=== PATIENT | female | born 1945 | race Caucasian/White ===

== ENCOUNTER 2019-06-02 13:55 | Outpatient (CLI) | payer MEDICARE, OTHER, SELFPAY ==
[2019-06-02 14:37] LABS: Basophils % 0.5 %; Eosinophils # 0.1 10^3/uL (0.0-0.8); Eosinophils % 1.3 %; Hematocrit 45.5 % (37.0-47.0); Hemoglobin 14.7 g/dL (11.5-15.3); Lymphocytes # 0.7 10^3/uL (0.8-4.8); Lymphocytes % 11.9 %; Mean Corpuscular HGB Conc 32.3 g/dL (30.0-36.0); Mean Corpuscular Hemoglobin 30.4 pg (28.0-34.0); Mean Platelet Volume 11.2 fL (7.4-10.4); Monocytes # 0.5 10^3/uL (0.2-0.9); Neutrophils # 4.2 10^3/uL (1.8-7.7); Neutrophils % 76.9 %; Nucleated Red Blood Cells % 0 %; Platelet Count 223 10^3/cmm (130-400); Red Blood Count 4.84 10^6/uL (4.1-5.3); Red Cell Distribution Width 13.9 % (12.1-15.1); White Blood Count 5.5 10^3/uL (4.0-10.0)
[2019-06-02 14:45] LABS: INR 1.01 (0.8-1.2)
[2019-06-02 14:46] LABS: Partial Thromboplastin Time 30.7 SECONDS (23.9-36.7)
[2019-06-02 15:00] LABS: Anion Gap 18.9 (5-19); Blood Urea Nitrogen 64 mg/dL (8-23); Calcium 10.2 mg/Dl (8.8-10.2); Carbon Dioxide 22 mmol/L (22-29); Chloride 99 mmol/L (98-107); Glucose 127 mg/dL (74-106); Magnesium 2.5 mg/dL (1.7-2.3); Potassium 3.9 mmol/L (3.5-5.1); Sodium 136 mmol/L (136-145)
== END 2019-06-02 13:56 | disposition home or self-care (01) ==
LOC: LAB 14:02
PROVIDERS: Family Provider Internal Medicine; PCP Internal Medicine; Visit Provider Internal Medicine Clinical Cardiac Electrophysiology
DX: I48.3 Typical atrial flutter (principal); I49.3 Ventricular premature depolarization; I48.0 Paroxysmal atrial fibrillation
CPT/HCPCS: 36415; 80048; 83735; 85025; 85610; 85730

== ENCOUNTER 2019-07-10 09:58 | Outpatient (CLI) | payer MEDICARE, OTHER, SELFPAY ==
[2019-07-10 10:35] LABS: Basophils % 0.7 %; Eosinophils # 0.2 10^3/uL (0.0-0.8); Eosinophils % 3.4 %; Hematocrit 42.5 % (37.0-47.0); Hemoglobin 13.5 g/dL (11.5-15.3); Lymphocytes # 0.7 10^3/uL (0.8-4.8); Lymphocytes % 12.3 %; Mean Corpuscular HGB Conc 31.8 g/dL (30.0-36.0); Mean Corpuscular Hemoglobin 32.3 pg (28.0-34.0); Mean Corpuscular Volume 101.7 fL (81-99); Mean Platelet Volume 10.8 fL (7.4-10.4); Monocytes # 0.5 10^3/uL (0.2-0.9); Monocytes % 8.3 %; Neutrophils # 4.1 10^3/uL (1.8-7.7); Neutrophils % 75.1 %; Nucleated Red Blood Cells % 0 %; Platelet Count 214 10^3/cmm (130-400); Red Blood Count 4.18 10^6/uL (4.1-5.3); Red Cell Distribution Width 14.5 % (12.1-15.1); White Blood Count 5.5 10^3/uL (4.0-10.0)
[2019-07-10 10:52] LABS: Alanine Aminotransferase 12 U/L (0-33); Albumin Level 3.6 g/dL (3.5-5.2); Alkaline Phosphatase 91 IU/L (35-105); Anion Gap 17.8 (5-19); Aspartate Amino Transferase 23 U/L (0-32); Blood Urea Nitrogen 58 mg/dL (8-23); Calcium 10.1 mg/dL (8.5-10.5); Carbon Dioxide 24 mmol/L (22-29); Chloride 103 mmol/L (98-107); Glucose 100 mg/dL (65-115); Potassium 3.8 mmol/L (3.5-5.1); Sodium 141 mmol/L (136-145); Total Bilirubin 0.6 mg/dL (0.15-1.2); Total Protein 7.6 g/dL (6.6-8.7)
--- NOTE | 2019-07-10 14:25 | ONC FU_ITS ---
Dr. 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 She had a anaphylactic reaction to tPA requiring intubation in October of 2013, but eventually recovered from stroke with minimal neurological deficits. She has a history of nonischemic cardiomyopathy and prior alcoholism. She underwent a CT of the chest on 05/04/14, done for a followup of pulmonary nodule which was negative, but it incidentally noted to have a right breast mass. Her mammogram on 05/08/2014 showed a 2 cm mass at 12:00 position extending posteriorly to the chest wall. On 05/16/2014 she underwent an excisional biopsy of the right breast and right sentinel lymph node biopsy. Intraoperatively, the resection was carried out all the way up the pectoralis muscle. Her surgical pathology showed a 2.1 cm low-grade infiltrating ductal carcinoma, posterior margins involved with the DCIS. There was lymphovascular invasion present. One sentinel lymph node was positive for metastatic disease. Prognostic markers showed ER 99%, CO 14%, HER-2/cindy 1+ by IHC and FISH not amplified at 1.2. Thus, pT2 pN1a M0, pathologic stage IIB. She was first seen on 06/08/2014. She declined adjuvant chemotherapy. She completed adjuvant radiation treatment to the right breast on 09/17/14. Adjuvant hormonal therapy with Arimidex began on 07/04/14. Baseline DEXA scan normal. Vitamin D deficiency found, she began on high-dose replacement. had her bone scan done on August 2016 and it was normal tolerating Arimidex very well lAs per patient, she has history of iron deficiency anemia, initially she was diagnosed in 2002 in [place], at that time she underwent EGD colonoscopy and bone marrow evaluation and bone marrow showed low iron and she was started on ferrous sulfate so, for the last 15 years she she has been taken it diligently. Patient was on anticoagulation for cardiac reasons and recently in April 2018, underwent cardiac procedure and at that time anticoagulation was discontinued and restarted on Plavix and aspirin. As per patient her hemoglobin was 12.1 on 05/16/2018 much repeat CBC on 06/14/2018 showed hemoglobin 7.3 g. She was given 3 units of packed RBCs with that her hemoglobin improved to 10 g and repeat CBC on 07/14/2018 showed white blood count 8 hemoglobin 9.3 crit 28.9 MCV 98 platelets 275,000 creatinine 1.26. Now on daily ferrous sulfate , Etiology of significant drop in hemoglobin was not clear as there was no evidence of gross bleeding. As per patient she had colonoscopy done last year by Dr. Puente and it was normal EGD done on 08/05/2018 showed gastritis with erythematous, ulcerative, erosion. There was no mucosal bleeding and rest of the exam was normal. Her iron studies done by Dr. Puente her PMD on 08/04/2018 showed ferritin 17, TIBC 374, B12 955, TSH 3.45. parenteral iron was given in Dr. Puente's office. She was advised to restart Arimidex but took it for 4 days and then stopped taking it because of she started feeling weak went to emergency room where her hemoglobin was 8.4 and then follow-up labs in her primary care physician office was 7.3 then loss she was given 2 units of packed RBCs and on Wednesday she underwent EGD.Restarted on Arimidex, tolerating well now Since her last visit patient said in November 2018 she received 2 units of packed RBC 4 hemoglobin 7.1 g subsequently on 12/16/2018 she underwent repeat EGD by Dr. Puente which showed bleeding stomach ulcer, as per patient cauterization was done with that bleeding stopped. Her repeat CBC done on 01/12/2019 shows white blood count 6.3 hemoglobin 12.7 hematocrit 37.8 platelets 259,000 and on 02/28/2019, as per patient, CBC done in her PMDs office showed hemoglobin 13.6. Other medical issues, recently diagnosed with progressive congestive heart failure as there is a drop in her ejection fraction from 45 to 20, now cardiac workup is in progress to rule out underlying coronary artery disease. Patient developed left foot pain for which x-ray of left foot was done on 01/30/2019 which showed no acute findings but osteoporosis in the mild first metatarsophalangeal joint degenerative arthritis changes. Completed 5 years of adjuvant therapy with Arimidex on 07/10/2019 As per patient recently underwent EGD which showed gastric ulcer and Dr. Puente did cauterization since then her hemoglobin has been improving and on 07/10/2019 her hemoglobin gone up to 13.5 hematocrit 42.5 and white blood count 5.5, platelets 214,000. Patient also underwent multiple cardiac procedures including pacemaker placement, AV node ablation, Came for follow-up, denies any specific complaints, overall more energetic. No fever or chills no nausea or vomiting no new bony pains, no melena or hematochezia. Tolerating Arimidex well and now has completed 5 years of adjuvant hormone therapy. Medications: Acetaminophen 1 Tablet (of 500 mg) Oral PRN, Allopurinol 1 Tablet (of 100 mg) Oral daily, Amiodarone HCl 1 Tablet (of 200 mg) Oral daily, Anastrozole 1 (1 mg) Tablet Oral daily, B Complex Tablet Oral daily, Calcitrate Plus D 1 Tablet (of 315-200 mg - Units) Oral daily, Entresto 1 Tablet (of 25 mg) Oral b.i.d., Ferrous Sulfate 1 (325 (65 fe) mg) Tablet Oral b.i.d., Lansoprazole 1 Tablet (of 30 mg) Tablet Dispersable Oral daily, Lasix 1 (80 mg) Tablet Oral daily, Magnesium 1 (250 mg) Tablet Oral daily, Metoprolol Succinate ER 1 Tablet (of 100 mg) Tablet SR 24 HR Oral daily Allergies: Latex (bandaids), statins, and tpa. Review of Systems: Constitutional - Her energy level is fair. Appetite is good and weight is stable. No fever, chills, or night sweats. She has occassional hot flashes, ENMT - She has sinus congestion/drainage. No mouth sores. No sore throat or difficulty swallowing, Hematologic/Lymphatic - No abnormal bruising or bleeding, Respiratory - She has shortness of breath with activity. She has nonproductive cough. No pleuritic pain or hemoptysis, Cardiovascular - Pt reports that she will begin cardiac rehab next week, Gastrointestinal - No nausea or vomiting. No heartburn or acid reflux. No diarrhea or constipation. No blood in the stool or black stools, Genitourinary (F) - No dysuria or hematuria. No urinary frequency. No urgency or incontinence, Musculoskeletal - She has generalized joint pain, Neurologic - No headache or dizziness. No numbness/paresthesias or other focal neurologic symptoms, Psychiatric - No anxiety or depression. She has insomnia. Vital Signs: Performed on Jul 10, 2019 11:34 Height - 66.00 in Weight - 204 lbs (LOW) BSA - 2.02 sq.m BMI - 32.93 (HIGH) Temperature - 97.8 F (LOW) Pulse - 70 /min Respiration - 18 /min BP - 102/79 mm(hg) O2 Sat - 96 % Pain - 3 Performance Status: 1 - No physically strenuous activity, but ambulatory and able to carry out light or sedentary work (e.g. office work, light house work). (ECOG) Physical Examination: Respiratory - Lungs are clear to auscultation without rhonchi or wheezing, Cardiovascular - Regular rate and rhythm of heart, Extremities - trace edema. Lab/Imaging: Most recent lab results are not available for this patient. Impression: This is a 73-year-old postmenopausal woman with stage IIB, pT4pF3kV2, ER/CO positive, HER-2 negative invasive ductal carcinoma of the right breast, with a positive posterior margin involved with DCIS. As per surgeon, the resection was carried out all the way back to the pectoralis musculature. No further breast tissue remains posterior to the mass itself. She declined adjuvant chemotherapy. She completed adjuvant radiation treatment. Adjuvant hormonal therapy with Arimidex for 5 years began on 07/04/14. Completed 5 years of Arimidex on 07/10/2019 Mammogram in May 2016 was BIRADS II Mammogram done on 06/07/2017 showed BI-RADS 2???benign Alkaline phosphatase is elevated . No bony symptoms. History of iron deficiency anemia diagnosed in 2002 with bone marrow biopsy done in [place] showed low iron stores in bone marrow. And normal colonoscopy and EGD at that time. Patient is on daily ferrous sulfate since then. History of 3 packed RBCs infusion on 06/14/2018 at that time her hemoglobin was 7.3 compared to 12.1 on 05/16/2018, etiology was not clear e.g. chronic GI blood loss from upper GI or small bowel AVMs as bilirubin was within normal limits Status post 2 units of packed RBC on 08/04/2018 followed by EGD on 08/05/2018 which showed gastritis but no active bleeding and her repeat iron studies on 08/04/2018 showed ferritin 17 TIBC 374 B12 955, TSH 3.45. s/p parenteral iron in Dr. Puente's office History of chronic anticoagulation till April 2019 when she underwent cardiac procedure and after that antipronation was discontinued and started on Plavix and aspirin. Plan: Discussed with patient regarding her labs white blood count 5.5 he'll return 13.5 crit 42.5 platelets 214,000 CMP within normal limit except creatinine 2 Clinically, patient is doing well with no signs symptom suggestive of recurrence of disease. Patient has completed 5 years of adjuvant therapy with Arimidex today. At this point we'll discontinue her hormonal therapy with Arimidex. And patient is scheduled for yearly follow-up mammogram in the morning. And her lab workup showed resolution of anemia hemoglobin is gone up to 13.5 g compared to 10.9 g. Patient said she, recently underwent cauterization of gastric ulcer by Dr. Puente and since then her blood count has been improving. And Dr. Puente is monitoring her anemia. At this point no new recommendation from hematology/oncology point of view rather observation. Patient will be following her primary care physician on a regular basis with her labs and mammogram and wishes to see us on as-needed basis. Signed By: Ace Dukes M.D. <<Signature on File>>
== END 2019-07-10 09:59 | disposition home or self-care (01) ==
LOC: ONCMED 10:01
PROVIDERS: Family Provider Internal Medicine; PCP Internal Medicine; Visit Provider Internal Medicine Hematology & Oncology
DX: C50.411 Malignant neoplasm of upper-outer quadrant of right female breast (principal); I48.91 Unspecified atrial fibrillation; N18.9 Chronic kidney disease, unspecified; I42.8 Other cardiomyopathies; C77.3 Secondary and unspecified malignant neoplasm of axilla and upper limb lymph nodes; Z17.0 Estrogen receptor positive status [ER+]; E55.9 Vitamin D deficiency, unspecified; D50.9 Iron deficiency anemia, unspecified; I50.9 Heart failure, unspecified; M81.0 Age-related osteoporosis without current pathological fracture; Z78.0 Asymptomatic menopausal state; R74.8 Abnormal levels of other serum enzymes; Z79.811 Long term (current) use of aromatase inhibitors; Z79.02 Long term (current) use of antithrombotics/antiplatelets; Z79.82 Long term (current) use of aspirin; Z87.891 Personal history of nicotine dependence; Z95.0 Presence of cardiac pacemaker; Z86.73 Personal history of transient ischemic attack (TIA), and cerebral infarction without residual deficits; Z92.3 Personal history of irradiation
CPT/HCPCS: 80053; 85025; 99214

== ENCOUNTER 2019-07-11 10:58 | Outpatient (CLI) | payer MEDICARE, OTHER, SELFPAY ==
--- NOTE | 2019-07-11 11:20 | MM_ITS ---
WS: [id number] BILATERAL SCREENING DIGITAL MAMMOGRAM WITH CAD HISTORY: HX OF BREAST CA COMPARISON: 06/06/2018 and 06/04/2017 Bilateral CC and MLO views submitted. Computer aided detection analyzed. Breast composition: There are scattered areas of fibroglandular density. No suspicious masses, microc alcifications or architectural distortion. Postsurgical lumpectomy and postradiation changes in the u pper outer quadrant of the RIGHT breast are stable. There is mild volume loss in the RIGHT breast. Bi lateral calcifications are stable. MM/[place] [id number] IMPRESSION: BI-RADS: 2-Benign FOLLOW UP: 1 Year Follow-up
== END 2019-07-11 10:59 | disposition home or self-care (01) ==
LOC: RADSHAW 11:01
PROVIDERS: Family Provider Internal Medicine; PCP Internal Medicine; Visit Provider Internal Medicine Hematology & Oncology
DX: Z85.3 Personal history of malignant neoplasm of breast (principal)
CPT/HCPCS: 77066

== ENCOUNTER 2019-07-25 14:05 | Outpatient (CLI) | payer MEDICARE, OTHER, SELFPAY ==
[2019-07-25 15:19] LABS: Basophils % 0.4 %; Eosinophils # 0.2 10^3/uL (0.0-0.8); Eosinophils % 3.2 %; Hematocrit 38.6 % (37.0-47.0); Hemoglobin 12.3 g/dL (11.5-15.3); Lymphocytes # 0.6 10^3/uL (0.8-4.8); Lymphocytes % 11.8 %; Mean Corpuscular HGB Conc 31.9 g/dL (30.0-36.0); Mean Corpuscular Hemoglobin 30.8 pg (28.0-34.0); Mean Corpuscular Volume 96.5 fL (81-99); Monocytes # 0.4 10^3/uL (0.2-0.9); Monocytes % 7.9 %; Neutrophils # 3.8 10^3/uL (1.8-7.7); Neutrophils % 76.5 %; Nucleated Red Blood Cells % 0 %; Platelet Count 252 10^3/cmm (130-400); Red Cell Distribution Width 14.4 % (12.1-15.1); White Blood Count 4.9 10^3/uL (4.0-10.0)
[2019-07-25 15:42] LABS: Anion Gap 18.6 (5-19); Blood Urea Nitrogen 30 mg/dL (8-23); Calcium 9.6 mg/dL (8.5-10.5); Carbon Dioxide 24 mmol/L (22-29); Chloride 98 mmol/L (98-107); Glucose 109 mg/dL (65-115); Phosphorus 4.8 mg/dL (2.5-4.5); Potassium 3.6 mmol/L (3.5-5.1); Sodium 137 mmol/L (136-145)
[2019-07-25 15:45] LABS: Creatinine Urine, Random 25 mg/dL (28-217)
[2019-07-25 15:46] LABS: Microalbum Creatinine Ratio Ur 40 mg/dL (0-20); Microalbumin Random Urine 1 ug/dL (0-20)
[2019-07-25 15:47] LABS: Calcium 9.5 mg/dL (8.5-10.5)
[2019-07-25 16:00] LABS: Parathyroid Hormone 144.6 pg/mL (15-65)
[2019-07-25 16:19] LABS: 25 Hydroxy Vitamin D 30 ng/mL (30-100)
== END 2019-07-25 14:06 | disposition home or self-care (01) ==
LOC: LAB 14:09
PROVIDERS: Family Provider Internal Medicine; PCP Internal Medicine; Visit Provider Nurse Practitioner Family
DX: N18.3 Chronic kidney disease, stage 3 (moderate) (principal)
CPT/HCPCS: 80069; 82044; 82306; 82310; 83970; 85025

== ENCOUNTER 2019-07-27 12:28 | Outpatient (RCR) | payer MEDICARE, OTHER, SELFPAY | END 2019-08-22 23:59 | disposition home or self-care (01) | LOC: CR 12:28 | PROVIDERS: Family Provider Internal Medicine; PCP Internal Medicine; Referring Provider Internal Medicine; Visit Provider Internal Medicine | DX: I48.21 Permanent atrial fibrillation (principal); I25.810 Atherosclerosis of coronary artery bypass graft(s) without angina pectoris; I50.22 Chronic systolic (congestive) heart failure; I10 Essential (primary) hypertension | CPT/HCPCS: 93798 ==

== ENCOUNTER 2019-07-31 11:42 | Outpatient (CLI) | payer MEDICARE, OTHER, SELFPAY ==
--- NOTE | 2019-07-31 12:34 | XR_ITS ---
WS: [id number] PROCEDURE: XR chest 2V* [id number] CLINICAL INFORMATION: PAF, [employer] CURRENT DRUG THERAPY COMPARISON: August 01, 2018 FINDINGS: Heart: Cardiomegaly. Cardiac pacer. Prominent left ventricle. Aortic calcification. Lungs: Chronic emphysematous changes. No acute pulmonary infiltrates. Bones: Mild thoracic kyphosis. XR/XR chest 2V* [id number] IMPRESSION: 1. Cardiomegaly with prominent left ventricle. 2. Cardiac pacer. 3. Chronic emphysematous changes. No acute pulmonary infiltrates.
== END 2019-07-31 11:43 | disposition home or self-care (01) ==
PROVIDERS: Family Provider Internal Medicine; PCP Internal Medicine; Visit Provider Internal Medicine Cardiovascular Disease
DX: I48.0 Paroxysmal atrial fibrillation (principal); I51.7 Cardiomegaly; J43.9 Emphysema, unspecified; Z79.899 Other long term (current) drug therapy; Z95.0 Presence of cardiac pacemaker
CPT/HCPCS: 71046

== ENCOUNTER 2019-08-17 13:08 | Outpatient (CLI) | payer MEDICARE, OTHER, SELFPAY ==
--- NOTE | 2019-08-17 13:15 | USCV_ITS ---
Teena Timmons Age: 73 Gender: F : 1945 Exam Date: 08/17/2019 13:32 Ordering Phys: Cindy Limon Technologist: Billie Evans Exam Location: [facility] [place] Indication: CHRONIC SYSTOLIC CHF/ PAROXYSMAL AFIB BP: / HR: 77 Rhythm: Atrial fibrillation Technical Quality: Adequate MEASUREMENTS (Male / Female) Normal Values 2D ECHO LV Diastolic Diameter PLAX 5.2 cm 4.2 - 5.9 / 3.9 - 5.3 cm LV Systolic Diameter PLAX 4.8 cm LV Chamber Size 4.0 cm IVS Diastolic Thickness 1.3 cm 0.6 - 1.0 / 0.6 - 0.9 cm IVS Systolic Thickness 2.0 cm LVPW Diastolic Thickness 1.8 cm 0.6 - 1.0 / 0.6 - 0.9 cm LVPW Systolic Thickness 2.3 cm RV Chamber Size 4.0 cm LVOT Diameter 2.0 cm LV Ejection Fraction 2D Teich 19.4 % LV Ejection Fraction MOD BP 36.4 % >= 55 % LA Diameter 5.4 cm LA Width 5.0 cm LA Height 8.0 cm RA Width 5.0 cm RA Height 5.8 cm Aorta at Sinotubular Diameter 2.8 cm M-MODE LV Diastolic Diameter MM 5.1 cm 4.2 - 5.9 / 3.9 - 5.3 cm LV Systolic Diameter MM 3.6 cm LV Ejection Fraction MM Teich 54.9 % IVS Diastolic Thickness MM 1.5 cm 0.6 - 1.0 / 0.6 - 0.9 cm IVS Systolic Thickness MM 2.3 cm LVPW Diastolic Thickness MM 1.2 cm 0.6 - 1.0 / 0.6 - 0.9 cm LVPW Systolic Thickness MM 1.9 cm RV Diastolic Diameter MM 2.7 cm Aortic Annulus Diameter 3.1 cm LA Ao Ratio MM 1.8 MV E Point Septal Separation 0.8 cm DOPPLER AV Peak Velocity 127.0 cm/s LVOT Peak Velocity 57.0 cm/s AV Area Cont Eq vti 1.5 cm squared AV Area Cont Eq pk 1.5 cm squared MV Area PHT 4.3 cm squared MV E' Velocity 12.0 cm/s Mitral E to MV E' Ratio 8.2 Mitral E to LV E' Lateral Ratio 7.7 Mitral E to LV E' Septal Ratio 9.0 TR Peak Velocity 248.8 cm/s TR Peak Gradient 24.8 mmHg TR Mean Velocity 190.7 cm/s TR Mean Gradient 15.4 mmHg TR Velocity Time Integral 103.3 cm TV Peak E Velocity 60.0 cm/s Right Atrial Pressure 3.0 mmHg Pulmonary Artery Systolic Pressu 27.8 mmHg PV Peak Velocity 40.0 cm/s RV Acceleration Time 0.1 s RV Ejection Time 0.4 s RV AcT/ET 0.3 FINDINGS Left Ventricle Moderately increased left ventricular cavity size. Moderately decreased left ventricular systolic function. Left ventricular ejection fraction is estimated at 40 %. Global left ventricular hypokinesis. In the presence of atrial fibrillation diastolic function cannot be assessed accurately Right Ventricle Normal right ventricular size. Catheter/pacemaker wire visualized in the right ventricle. Right Atrium Moderately increased right atrial size. Catheter/pacemaker wire in the right atrial cavity. Left Atrium Sverely increased left atrial size. Mitral Valve Moderately thickened mitral valve. No mitral valve stenosis. Severe mitral valve regurgitation. Aortic Valve Moderate aortic valve calcification. Mild aortic valve stenosis, mean gradient 2.9 mmHg, FRANCESCA 1.5 cm squared.no aortic valve regurgitation. Tricuspid Valve Moderate tricuspid valve regurgitation. Pulmonic Valve Structurally normal pulmonic valve without significant stenosis. There is no pulmonic regurgitation. Pericardium Normal pericardium without effusion. Aorta Normal ascending aorta dimension. CONCLUSIONS 1-Moderately increased left ventricular cavity size. Moderately decreased left ventricular systolic function. Left ventricular ejection fraction is estimated at 40 %. Global left ventricular hypokinesis. In the presence of atrial fibrillation diastolic function cannot be assessed accurately . 2-Normal right ventricular size. Catheter/pacemaker wire visualized in the right ventricle. 3-Moderately increased right atrial size. Catheter/pacemaker wire in the right atrial cavity. Severely increase left atrial size. 4-Moderate aortic valve calcification. Mild aortic valve stenosis, mean gradient 2.9 mmHg, FRANCESCA 1.5 cm squared.no aortic valve regurgitatio. 5-Moderately thickened mitral valve. No mitral valve stenosis. Severe mitral valve regurgitation. 6-Moderate tricuspid valve regurgitation. 7-There is no pericardial effusion. 8-No significant change since the prior echocardiogram study of 11/02/2016. Estrella Saucedo MD (Electronically Signed) Final Date: 17 August 2019 20:45 S
[2019-08-17 15:09] LABS: Anion Gap 17.1 (5-19); Blood Urea Nitrogen 42 mg/dL (8-23); Calcium 10.1 mg/dL (8.5-10.5); Carbon Dioxide 28 mmol/L (22-29); Chloride 103 mmol/L (98-107); Glucose 109 mg/dL (65-115); NT Pro B Type Natriuretic Pept 7939 pg/mL (0-450); Osmolality Calculated 296 mOsm/kg (285-295); Potassium 4.1 mmol/L (3.5-5.1); Sodium 144 mmol/L (136-145)
== END 2019-08-17 13:09 | disposition home or self-care (01) ==
PROVIDERS: Family Provider Internal Medicine; PCP Internal Medicine; Visit Provider Nurse Practitioner Adult Health
DX: I50.22 Chronic systolic (congestive) heart failure (principal); I49.3 Ventricular premature depolarization; I48.0 Paroxysmal atrial fibrillation; I08.3 Combined rheumatic disorders of mitral, aortic and tricuspid valves; I10 Essential (primary) hypertension; Z95.0 Presence of cardiac pacemaker
CPT/HCPCS: 36415; 80048; 83880; 93306

== ENCOUNTER 2019-08-18 15:18 | Outpatient (CLI) | payer MEDICARE, OTHER, SELFPAY ==
--- NOTE | 2019-08-18 15:26 | USR_ITS ---
PROCEDURE INFORMATION: Exam: US Bilateral Noninvasive Physiologic Study of the Lower Extremity Arteries, Limited Exam date and time: 08/18/2019 3:27 PM Age: 73 years old Clinical indication: Pain; Leg, lower; Bilateral; Additional info: Bilateral leg pain TECHNIQUE: Imaging protocol: Bilateral Limited bilateral noninvasive physiologic studies of lower extremity arteries. Images were documented and archived. Exam is limited. COMPARISON: No relevant prior studies available. FINDINGS: Abnormal waveforms within the thigh bilaterally as well as within the calf bilaterally. Right Ankle-Brachial Index: 0.64 Left Ankle-Brachial Index: 1.05 US/CV segpressure [facility] [id number] IMPRESSION: Severe atheromatous disease on the right. Normal ankle brachial index on the left which is likely falsely elevated given the severely abnormal waveforms.
== END 2019-08-18 15:19 | disposition home or self-care (01) ==
LOC: US 15:19
PROVIDERS: Family Provider Internal Medicine; PCP Internal Medicine; Visit Provider Internal Medicine Clinical Cardiac Electrophysiology
DX: M79.605 Pain in left leg (principal); M79.604 Pain in right leg; I70.201 Unspecified atherosclerosis of native arteries of extremities, right leg
CPT/HCPCS: 93923

== ENCOUNTER 2019-10-19 20:16 | Observation (INO) | payer MEDICARE, OTHER, SELFPAY ==
[2019-10-18 09:59] VITALS: BMI 33.4
--- NOTE | 2019-10-19 07:30 | XACV_ITS ---
Wt: 94 kg BSA: 2.13 m2 Gender: Female : 1945 Exam Type: Invasive Peripheral Vascular Procedure(s): Procedure Description: Peripheral Cath Diagnostic Procedure Procedure Description: Abdominal aortic angiography Procedure Description: Lower extremities' angiography Procedure Description: Peripheral vascular Intervention Procedure Description: PV Balloon Exam Priority: Routine Lower Extremity Diagnostic Findings Patient with claudication below the knee on the right and less so on the left. Noninvasive studies are abnormal suggesting disease at or below the knee. Patient is [place] grade II, category 4; Cait stage III. Angiography of the right leg reveals normal common iliac, external iliac and internal iliac. The common femoral is normal. The superficial femoral artery is normal. The popliteal is occluded at the level of the joint with essentially no flow below the knee. On the left the common iliac, external iliac, internal iliac, common femoral, profunda femoris and superficial femoral arteries are all normal. The popliteal is normal. There is little flow below the level of the popliteal. 1 can see the beginnings of the trifurcation vessels but there is very little flow here. Lower Extremity Interventional Findings A hydrophilic wire was placed down the superficial femoral artery into the area of occlusion at the popliteal. The wire was advanced using a seeker catheter. Eventually the seeker catheter was placed down the posterior tibial artery to the ankle. The area of the tibial peroneal trunk and the popliteal were angioplastied multiple times with plain old balloon followed by drug-eluting balloon. The end result was an open popliteal, open tibial peroneal trunk, open peroneal and open posterior tibial artery. The anterior tibial is also patent now but with a residual stenosis in the ostium. 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 Angioplasty of the popliteal and more distally performed with plain old balloon angioplasty and subsequently drug-eluting balloon angioplasty. The popliteal, tibial peroneal trunk, peroneal and posterior tibial arteries were all opened. I was not able to open completely the anterior tibial however there is some flow in this vessel at the end of the procedure. Recommendations Medical treatment. Access Site Site: Left Femoral artery Sheath Size: 6 Fr Hemost... Success: Unsuccessful Procedure Details Findings Procedure Consent Obtained. Pre-Procedure Time Out. Identified patient by full name and date of as verbalized by the patient/guarantor. Does the consent match the physician's order: Yes. Accurate & Complete Informed Consent: Yes. Inpatient/Outpatient History & Physical on Chart: Yes. Visualize and Verify Site with Patient/Guarantor: N/A. Relevant Radiology Images available: N/A. The risks, benefits, and alternatives of sedation and/or procedure were discussed by physician. The patient agrees to continue. Procedure started. Correct patient, site and procedure confirmed by cath team. Current diagnosis: PVD. PERRLA. Strong, equal hand business process lead bilaterally. Lungs clear x 5 lobes. Patient allergies: statins, TPA. Patient home medications: allopurinol, amiodarone,calcium, vit D3, ferrous sulfate, furosemide, magnesium, metoprolol, entresto, Vit complex & 12. Patient's family unavailable. Equipment: 6F - Femoral. Physician arrived. Physician scrubbed in. IV Site on Arrival: 20 gauge in the right anticubital. IV Fluids: 0.9% NaCl at KVO. 0 mL infused prior to recyclable materials distributor. Pre Procedural Pulses: bilateral dorsalis pedis was Doppled. Pre Procedural Pulses: bilateral posterior tibial was Doppled. Oxygen started at 2liters/min via nasal canula. bilateral groins was prepped with chloroprep then draped in the usual sterile fashion. Physician notified. Baseline sample Acquired. HR: 70 BPM. Physician scrubbed in. Time out performed with cath team. Lidocaine 1% infiltrated to the left groin. Arterial access obtained. A 5FrFr UF catheter in over wire. Abdominal aortogram performed in AP @ 10 mL/sec for a total of 30 mL. inserting the glidewire. wire seated in the right SFA. UF catheter removed and the RIM inserted over the glidewire. glide wire out right leg runoff performed 10ml for a total of 10ml. inserting glidwire. wire seated in the right SFA. RIM removed. exchanging the short 6Fr sheath for a long 6Fr flexor sheath over the glide wire. wire out and a 10ml for a total of 20ml right leg run performed. glidewire inserted and a Seeker inserted over the wire to the right politeal area. glidewire out and hand injection performed right lower leg. Side port of sheath attached to Normal Saline flush at KVO to maintain patency. glidewire inserted and Seeker removed. inserting balloon to right popliteal. Inflation number : 1 A AB ARMADA 35 OTW [id number] was prepped and advanced across the right popliteal , then inflated to 8 LAVONNE for 2:00 seconds. Inflation number: 2 The AB ARMADA 35 OTW [id number] was reinflated across the right popliteal, to 10 LAVONNE for 2:00 seconds. balloon back and checking results. hand injection performed. balloon out and Seeker inserted over glide wire to the right lower leg. Seeker removed. Inflation number: 3 The AB ARMADA 35 OTW [id number] was reinflated across the Undefined1, to 10 LAVONNE for 1:00 seconds. balloon out and hand injection performed. Inflation number : 4 A BARD 5FR Lutinox [id number] drug coated balloon was prepped and advanced across the right popliteal, then inflated to 6 LAVONNE for 1:01 seconds. balloon out checking results. balloon inserted. Inflation number: 5 The BARD 5FR Lutinox [id number] drug coated balloon was reinflated across the right poopliteal, to 6 LAVONNE for 1:00 seconds. balloon out. exchanging the long Flexor sheath out for a short 6Fr sheath. left leg runoff performed 10ml for a total of 30ml. Sheath(s) sutured into position with 2-0 silk and sterile 4x4's and Op-site applied over the site. No oozing or signs and symptoms of hematoma noted. Arterial sheath flushed and connected to tranducer and pressure bag with heparinized saline. Post Procedure: Pulses reassessed and unchanged. Medication's Wasted: Heparin = 1000. units. Total IV fluids: 50 mL. Contrast type used: Visipaque 320 mgI/mL, 500 mL bottle. [id number]. Post-op diagnosis: PAD. Complications: none. Estimated blood loss: 5mL-10mL. Procedure completed. Patient transferred by bed to ICU. Procedure Medications Start: 8:39 AM Stop: 8:39 AM Medication: Versed Amount: 2 mg Route: I.V. Start: 8:39 AM Stop: 8:39 AM Medication: Fentanyl Amount: 25 mcg Route: I.V. Start: 8:51 AM Stop: 8:51 AM Medication: Versed Amount: 1 mg Route: I.V. Start: 8:51 AM Stop: 8:51 AM Medication: Fentanyl Amount: 25 mcg Route: I.V. Start: 9:02 AM Stop: 9:02 AM Medication: Heparin Amount: 5000 units Route: I.V. Start: 9:12 AM Stop: 9:12 AM Medication: Fentanyl Amount: 25 mcg Route: I.V. Start: 9:26 AM Stop: 9:26 AM Medication: Versed Amount: 1 mg Route: I.V. Start: 9:26 AM Stop: 9:26 AM Medication: Fentanyl Amount: 25 mcg Route: I.V. I, the attending physician, have reviewed and verified all procedure medications. Yes, all medications given per verbal order History/Risk Factors Hypertension: No Dyslipidemia: No Peripheral Arterial Disease (PAD): Yes Myocardial Infarction (OK): No Obesity: No Renal Disease: No Tobacco Use: Former Prior Interventions PCI: No CABG: No Valve Surgery: No Report Signatures Finalized by:Dr. Gallo Zamudio MD on 10/19/2019 10:12:55 AM
[2019-10-19] MEDS: diphenhydrAMINE 50 mg Capsule PO (07:44)
[2019-10-19 08:05] VITALS: BP 143/84; PULSE 78; RESP 16; TEMP 36.8; O2SAT 93
[2019-10-19 08:15] LABS: Basophils % 0.7 %; Eosinophils # 0.2 10^3/uL (0.0-0.8); Eosinophils % 3.6 %; Hematocrit 46.8 % (37.0-47.0); Hemoglobin 15.2 g/dL (11.5-15.3); Lymphocytes # 0.9 10^3/uL (0.8-4.8); Lymphocytes % 14.3 %; Mean Corpuscular HGB Conc 32.5 g/dL (30.0-36.0); Mean Corpuscular Hemoglobin 31.5 pg (28.0-34.0); Mean Corpuscular Volume 97.1 fL (81-99); Mean Platelet Volume 11.1 fL (7.4-10.4); Monocytes # 0.5 10^3/uL (0.2-0.9); Monocytes % 8.2 %; Neutrophils # 4.4 10^3/uL (1.8-7.7); Neutrophils % 72.9 %; Nucleated Red Blood Cells % 0 %; Platelet Count 213 10^3/cmm (130-400); Red Blood Count 4.82 10^6/uL (4.1-5.3); Red Cell Distribution Width 15.1 % (12.1-15.1); White Blood Count 6.1 10^3/uL (4.0-10.0)
[2019-10-19 08:25] LABS: Anion Gap 17.3 (5-19); Blood Urea Nitrogen 32 mg/dL (8-23); Calcium 9.3 mg/dL (8.5-10.5); Carbon Dioxide 30 mmol/L (22-29); Chloride 98 mmol/L (98-107); Glucose 97 mg/dL (65-115); Osmolality Calculated 291 mOsm/kg (285-295); Potassium 3.3 mmol/L (3.5-5.1); Sodium 142 mmol/L (136-145)
[2019-10-19 10:00] VITALS: BP 147/73; PULSE 71; RESP 14; O2SAT 97
[2019-10-19 13:43] VITALS: RESP 18
[2019-10-19] MEDS: fentaNYL 50 mcg/mL INJ 2mL IVP (13:43)
[2019-10-19] MEDS: sodium chloride 0.45% 1,000 ML 100 ML IV (14:35)
--- NOTE | 2019-10-19 14:37 | PC.NURSE ---
1330--SHEATH REMOVED FROM LEFT GROIN THIS NURSE UNABLE TO GET MANUAL CONTROL OF ARTERY, 2ND RN, PRAVEENA CAME IN & APPLIED MANUAL PRESSURE X20 MINUTES. NO HEMATOMA FORMATION.
[2019-10-19] MEDS: ferrous sulfate EC 325 mg Tablet PO (19:11)
--- NOTE | 2019-10-19 20:35 | PC.NURSE ---
PT ARRIVED TO ROOM 104 VIA BED. PT HAD A PERIPHERAL ANGIOPLASTY DONE AND THE DRESSING OVER THE LEFT GROIN IS C/D/I. V/S BP - 136/84, HR - 70, RR - 15, SPO2 - 95%RA. PT HAS 0 C/O PAIN AT THIS TIME. WILL CONTINUE TO MONITOR.
--- NOTE | 2019-10-19 20:40 | PC.NURSE ---
PT WAS ABLE TO GET UP AND WALK AFTER PROCEDURE AT 1999. PT AMBULATED TO THE BATHROOM AND THEN 120 FEET IN THE [place]. PT TOLERATED WELL. DENIES SOB AND FATIGUE. WILL CONTINUE TO MONITOR.
--- NOTE | 2019-10-19 20:41 | PC.NURSE ---
PT IS UPSET AT THAT THE DOCTOR DIDN'T CAME BACK AND TALK WITH THE PATIENT AFTER PROCEDURE. PT IS ALSO UPSET THE THE COULDN'T BE THERE AN ADVOCATE. PT WOULDN'T EXPRESS ANY SPECIFIC CONCERNS.
[2019-10-19 20:45] VITALS: BP 139/74; PULSE 70; RESP 16; TEMP 36.7; O2SAT 96
[2019-10-20] VITALS: BP 124/73; PULSE 70; RESP 19; O2SAT 96
[2019-10-20 05:04] VITALS: BP 140/83; PULSE 72; RESP 34; TEMP 36.7; O2SAT 92
--- NOTE | 2019-10-20 05:26 | PC.NURSE ---
PT WAS CONCERNED ABOUT MEDICATIONS, BUT DIDN'T WANT THIS NURSE TO CALL THE DOCTOR TO VERIFY MEDICATIONS. PT C/O DRY THROAT. THIS NURSE BROUGHT THE PT BROTH. PT STATED THAT THE BROTH HELPED. WILL CONTINUE TO MONITOR.
[2019-10-20 05:45] LABS: Basophils % 0.5 %; Eosinophils # 0.2 10^3/uL (0.0-0.8); Eosinophils % 2.7 %; Hematocrit 47.3 % (37.0-47.0); Hemoglobin 14.7 g/dL (11.5-15.3); Lymphocytes # 0.8 10^3/uL (0.8-4.8); Lymphocytes % 11.8 %; Mean Corpuscular HGB Conc 31.1 g/dL (30.0-36.0); Mean Corpuscular Hemoglobin 30.9 pg (28.0-34.0); Mean Corpuscular Volume 99.4 fL (81-99); Mean Platelet Volume 11.4 fL (7.4-10.4); Monocytes # 0.7 10^3/uL (0.2-0.9); Monocytes % 10.7 %; Neutrophils # 4.7 10^3/uL (1.8-7.7); Neutrophils % 73.8 %; Nucleated Red Blood Cells % 0 %; Platelet Count 194 10^3/cmm (130-400); Red Blood Count 4.76 10^6/uL (4.1-5.3); White Blood Count 6.3 10^3/uL (4.0-10.0)
[2019-10-20 06:09] LABS: Anion Gap 16.9 (5-19); Blood Urea Nitrogen 31 mg/dL (8-23); Calcium 9.6 mg/dL (8.5-10.5); Carbon Dioxide 26 mmol/L (22-29); Chloride 100 mmol/L (98-107); Glucose 99 mg/dL (65-115); Osmolality Calculated 285 mOsm/kg (285-295); Potassium 3.9 mmol/L (3.5-5.1); Sodium 139 mmol/L (136-145)
--- NOTE | 2019-10-20 07:20 | PM.DCS ---
Discharge Providers Date of Admission: 10/19/19 20:16 Date of Discharge: October 20, 2019 Attending Provider at Admission: Gallo Zamudio MD Attending Provider at Discharge: Gallo Zamudio MD Primary Care Provider: Janie Agustin MD Diagnoses at Discharge Discharge Diagnosis (1) Claudication: Status: Acute (2) PVCs (premature ventricular contractions): Status: Acute (3) Mitral regurgitation: Status: Acute (4) ICD (implantable cardioverter-defibrillator) in place: Status: Acute (5) Breast cancer: Status: Acute (6) Cardiomyopathy: Status: Acute (7) CKD (chronic kidney disease): Status: Acute (8) CVA (cerebral vascular accident): Status: Acute (9) Carotid stenosis, bilateral: Status: Acute (10) CHF (congestive heart failure): Status: Acute (11) Atrial fibrillation: Status: Acute (12) Presence of Watchman left atrial appendage closure device: Status: Acute (13) History of cardiac radiofrequency ablation: Status: Acute (14) VALE on CPAP: Status: Acute Reason for Visit Reason for Visit: Reason For Visit: claudation Brief History: Teena is 73 years old has a very long list of medical problems as delineated. She developed claudication with an abnormal lower extremity Doppler exam. KALEN on the right 0.6 and on the left 1.1. She was brought in electively for lower extremity angiography and possible intervention. Hospital Course Hospital Course: She underwent angiography yesterday. The lower abdominal aorta was unremarkable. The iliac arteries, common femorals and both superficial femorals are normal. The right popliteal artery was occluded right at the joint. There was basically no flow below the right knee. I placed a wire down the vessel and was able to open the distal popliteal, tibial peroneal trunk, left posterior tibial and the peroneal. She underwent plain old balloon angioplasty followed by drug-eluting balloon angioplasty. I was also able to barely open the right anterior tibial however there is a still a lesion in this vessel but there has been flow reestablished. The left lower extremity vessels appear similar. She does have a near total occlusion at the left popliteal. This will be dealt with at a later date. Today she has no bleeding or hematoma at the entry site on the left groin. The right lower extremity is warm. There are pulses. She states the right leg already feels better. At discharge she will restrict her activity to reflect no lifting over 5 pounds for 2 days. Plavix has been added. Otherwise medications unchanged. Physical Exam Narrative: EXAM NARRATIVE: GENERAL: In general she looks and feels well HEENT: Exam within normal limits. NECK: Supple without jugular vein distention. The carotid upstroke is normal without bruits. BACK: Exam normal. LUNGS: Clear. HEART: Regular rate and rhythm. ABDOMEN: Benign without organomegaly or tenderness. EXTREMITIES: No edema. Right lower extremity is warm and there are pulses. No bleeding, hematoma or other vascular anomaly in the left groin. NEUROLOGIC: Exam normal. SKIN: Unremarkable. Discharge Data Data Completed and Pending: Completed Studies During Hospitalization Category Date Time Status BAND ATTACHER request for service Routin e Exams 10/19/19 07:30 Completed Labs from last 24 hours 10/20/19 10/20/19 10/19/19 05:10 05:10 08:00 WBC 6.3 RBC 4.76 Hgb 14.7 Hct 47.3 H MCV 99.4 H MCH 30.9 MCHC 31.1 RDW 15.0 Plt Count 194 MPV 11.4 H Neut % (Auto) 73.8 Lymph % (Auto) 11.8 Tompkins % (Auto) 10.7 Eos % (Auto) 2.7 Baso % (Auto) 0.5 Neut # (Auto) 4.7 Lymph # (Auto) 0.8 Tompkins # (Auto) 0.7 Eos # (Auto) 0.2 Baso # (Auto) 0.0 Nucleated RBC % (a uto) 0 Nucleated RBCs # 0.0 Sodium 139 142 Potassium 3.9 3.3 L Chloride 100 98 Carbon Dioxide 26 30 H Anion Gap 16.9 17.3 BUN 31 H 32 H Creatinine 1.7 H 1.5 H Glucose 99 97 Calculated Osmolal ity 285 291 Calcium 9.6 9.3 10/19/19 08:00 WBC 6.1 RBC 4.82 Hgb 15.2 Hct 46.8 MCV 97.1 MCH 31.5 MCHC 32.5 RDW 15.1 Plt Count 213 MPV 11.1 H Neut % (Auto) 72.9 Lymph % (Auto) 14.3 Tompkins % (Auto) 8.2 Eos % (Auto) 3.6 Baso % (Auto) 0.7 Neut # (Auto) 4.4 Lymph # (Auto) 0.9 Tompkins # (Auto) 0.5 Eos # (Auto) 0.2 Baso # (Auto) 0.0 Nucleated RBC % (a uto) 0 Nucleated RBCs # 0.0 Sodium Potassium Chloride Carbon Dioxide Anion Gap BUN Creatinine Glucose Calculated Osmolal ity Calcium Vitals: Last Vital Signs Temp 98.1 F 10/20/19 05:04 Pulse 72 10/20/19 05:04 Resp 34 H 10/20/19 05:04 BP 140/83 10/20/19 05:04 Pulse Ox 92 10/20/19 05:04 Discharge Plan Discharge Patient Disposition: Home, Self-Care Condition: Stable Prescriptions: New clopidogrel 75 mg Tablet 75 mg PO DAILY 30 Days Qty: 30 RF: 0 Continued Entresto 24-26 mg tablet 1 tab PO BID RF: 0 metoprolol succinate 100 mg tablet extended release 24 hr 100 mg PO DAILY RF: 0 allopurinol 100 mg tablet 100 mg PO DAILY RF: 0 furosemide 40 mg tablet 80 mg PO DAILY RF: 0 amiodarone 200 mg tablet 200 mg PO DAILY RF: 0 ferrous sulfate 325 mg (65 mg iron) tablet 325 mg PO BID RF: 0 vitamin B complex [B Complex-Vitamin B12] Tablet 1 tab PO DAILY RF: 0 magnesium 250 mg tablet 250 mg PO DAILY RF: 0 calcium carbonate-vit D3-min 600 mg calcium- 400 unit tablet 1 tab PO ONCE RF: 0 tramadol 50 mg tablet 50 mg PO Q6H PRN (Reason: pain) 30 Days Qty: 30 RF: 0 Discharge Orders: Discharge Order (Routine); Ordered 10/20/19 Ordered By: Gallo Zamudio Referrals: Idania Chicas FNP [Nurse Practitioner] - 7-10 days Discharge Diet: Diabetic Discharge Activity: Limit activity as instructed Activity Restrictions/Additional Instructions: No lifting over 5 pounds for 2 days. Medications unchanged with the exception of Plavix 75 mg once daily. Discharge Attestations Time Spent in Discharge Care*: greater than 30 min Specific Discharge Activities: Specific discharge activities: educating patient Quality Metrics Clinical Quality Measures During this hospital stay, did patient experience: None Coding Level of Care Code Acute All Source Analyst for [facility] Fwd Diagnoses Claudication I73.9 PVCs (premature ventricular contractions) I49.3 Mitral regurgitation I34.0 ICD (implantable cardioverter-defibrillator) in place Z95.810 Breast cancer C50.919 Cardiomyopathy I42.9 CKD (chronic kidney disease) N18.9 CVA (cerebral vascular accident) I63.9 Carotid stenosis, bilateral I65.23 CHF (congestive heart failure) I50.9 Atrial fibrillation I48.91 Presence of Watchman left atrial appendage closure device Z95.818 History of cardiac radiofrequency ablation Z98.890 VALE on CPAP G47.33; Z99.89
[2019-10-20] MEDS: FUROsemide 40 mg Tablet 80 MG PO (08:59)
[2019-10-20] MEDS: metoprolol succinate ER (24 HR) 100 mg Tablet PO (09:00)
[2019-10-20] MEDS: calcium carb-vit d 600mg/400unit 1 Tablet 1 EACH PO (09:01)
[2019-10-20] MEDS: amiodarone 200 mg Tablet PO (09:01)
[2019-10-20] MEDS: clopidogrel 75 mg Tablet PO (09:01)
[2019-10-20] MEDS: allopurinol 100 mg Tablet PO (09:01)
[2019-10-20] MEDS: ferrous sulfate EC 325 mg Tablet PO (09:02)
--- NOTE | 2019-10-20 10:13 | PC.CHAP ---
Pastoral Care Encounter/Spiritual Assessment Type of Contact [] Declined tattoo designer visit [] Patient/Family/Request visit [] Outpatient visit [] Follow-up visit [] Physician referral [] Code/Alert [x] Routine visit [] Staff referral [] Actively dying [] Patient sleeping [] Family support [] [] Out of room [] Palliative care [] [] Receiving care in room [] Pre-surgical visit [] Trauma [] Long length of stay [] ICU visit [] Other: Relational/Emotional Strength [] Patient feels connected with others/family/visitors/staff [] Distress [] Loneliness/isolation [] Abandonment Spirituality of Patient [] Person of Bernie [] Attends Yazidism of their Bernie [] Believes in Prayer [] Reads Bible or Restoration materials [] There are Spiritual issues to be addressed Production Laborer Interventions [x] Prayer [] Active listening [] Non-anxious presence [] Spiritual/emotional support [] Crisis/trauma care [] Spiritual counseling [] Bereavement support [] Provided bereavement packet [] Provided Bible/devotional materials [] Provided toy/stuffed animal, coloring book to patient or family member [] Provided Communion [] Anointing/[place] [] Salvation [x] Completed spiritual assessment [] Other: Impact on Illness or Injury [] Angry [] Fearful [] Anxious [] Often cries [] Exhaustion [] Unable to work [] Unable to attend presybeterian [] Unable to walk/stand [] Unable to read [] Unable to drive [] Unable to eat/drink [] Unable to sleep [] Unable to be with family [] Patient intubated [] Other: Summary Patient getting ready to discharge. Patient vocal regarding likes and dislikes. Time spent with patient 10min
--- NOTE | 2019-10-20 11:30 | PC.NURSE ---
Patient states he cannot swallow potassium tablets and can only use liquid.
--- NOTE | 2019-10-20 12:35 | PC.NURSE ---
Peripheral IV in right acf discontinued, intact. New dressing to site. No oozing.
[2019-10-20 12:37] VITALS: BP 128/76; PULSE 92; RESP 22; TEMP 36.6; O2SAT 95
== END 2019-10-20 12:30 | disposition home or self-care (01) ==
LOC: CCL 10-20 03:42 → CSU 10-20 07:20
PROVIDERS: Admitting Provider Internal Medicine Cardiovascular Disease; PCP Internal Medicine; Visit Provider Internal Medicine Cardiovascular Disease
DX: I70.211 Atherosclerosis of native arteries of extremities with intermittent claudication, right leg (principal); I49.3 Ventricular premature depolarization; I34.0 Nonrheumatic mitral (valve) insufficiency; Z95.810 Presence of automatic (implantable) cardiac defibrillator; C50.919 Malignant neoplasm of unspecified site of unspecified female breast; N18.9 Chronic kidney disease, unspecified; I63.9 Cerebral infarction, unspecified; I65.23 Occlusion and stenosis of bilateral carotid arteries; I50.9 Heart failure, unspecified; I48.91 Unspecified atrial fibrillation; Z95.818 Presence of other cardiac implants and grafts; Z98.890 Other specified postprocedural states; G47.33 Obstructive sleep apnea (adult) (pediatric); Z99.89 Dependence on other enabling machines and devices
CPT/HCPCS: 12345; 36415; 37224; 75625; 75716; 80048; 85025; 96375; C1725; C1769; C1887; C1894; C2623; G0378; J1644; J2001; J2250; J3010; J7030; Q0163; Q9967

== ENCOUNTER → 2019-10-26 11:57 | Outpatient (BNVA) | payer MEDICARE, OTHER, SELFPAY | PROVIDERS: PCP Internal Medicine; Visit Provider Nurse Practitioner Family | DX: I73.9 Peripheral vascular disease, unspecified (principal) | CPT/HCPCS: 80048 ==

== ENCOUNTER 2019-11-09 06:10 | Day surgery (SDC) | payer MEDICARE, OTHER, SELFPAY ==
[2019-11-09] VITALS (28 sets, daily range): BP systolic 92–147; BP diastolic 61–86; PULSE 69–77; RESP 15–26; TEMP 36.3–37.1; O2SAT 89–100; BMI 32.5
[2019-11-09] MEDS: diphenhydrAMINE 50 mg Capsule PO (06:18)
[2019-11-09 06:49] LABS: Basophils % 0.5 %; Eosinophils # 0.1 10^3/uL (0.0-0.8); Eosinophils % 2.9 %; Hematocrit 44.3 % (37.0-47.0); Hemoglobin 14.1 g/dL (11.5-15.3); Lymphocytes # 0.8 10^3/uL (0.8-4.8); Lymphocytes % 19.5 %; Mean Corpuscular HGB Conc 31.8 g/dL (30.0-36.0); Mean Corpuscular Hemoglobin 30.9 pg (28.0-34.0); Mean Corpuscular Volume 97.1 fL (81-99); Mean Platelet Volume 11.1 fL (7.4-10.4); Monocytes # 0.4 10^3/uL (0.2-0.9); Neutrophils # 2.8 10^3/uL (1.8-7.7); Neutrophils % 67.4 %; Nucleated Red Blood Cells % 0 %; Platelet Count 217 10^3/cmm (130-400); Red Blood Count 4.56 10^6/uL (4.1-5.3); Red Cell Distribution Width 14.2 % (12.1-15.1); White Blood Count 4.2 10^3/uL (4.0-10.0)
--- NOTE | 2019-11-09 07:00 | XACV_ITS ---
Wt: 92 kg BSA: 2.12 m2 Any Known Allergies: Other Gender: Female : 1945 Exam Type: Invasive Peripheral Vascular Procedure(s): Procedure Description: Peripheral Cath Diagnostic Procedure Procedure Description: Lower extremities' angiography Procedure Description: Peripheral vascular Intervention Procedure Description: PV Balloon Exam Priority: Routine Lower Extremity Diagnostic Findings Patient has known peripheral arterial disease and about 3 weeks ago underwent angioplasty of an occluded right popliteal with revascularization of all 3 vessels below the knee. She was found to have a significant stenosis of the tibial peroneal trunk on the left and is brought back today for purposes of intervention to this vessel. She is Kilo grade I, category 2; Cait stage II. Left leg vasculature is basically normal with mild luminal irregularities from the common iliac down to the popliteal. Just past the popliteal the tibial peroneal trunk contains a 80 to 90% diffuse stenosis. This last the entire length of the vessel. There is very little flow in the posterior tibial or peroneal arteries. Anterior tibial is open however there is little flow due to the lesion at that level. Lower Extremity Interventional Findings A 0. 0 one 4 inch wire was placed down past the tibial peroneal trunk and into the peroneal artery. A 40 mm x 4 mm balloon was used to angioplasty the tibial peroneal trunk. This was successful and opened the peroneal and posterior tibial. Both these vessels contain modest diffuse disease but are now open. The anterior tibial is now open and appears to be normal to the ankle. Conclusions Plain old balloon angioplasty of the left tibial peroneal trunk with adequate angiographic result and reasonable flow of the posterior tibial and peroneal arteries both of which are modestly diffusely diseased. Normal flow in the anterior tibial now. Access Site Site: Right Femoral artery Sheath Size: 6 Fr Hemost... Success: Unsuccessful Procedure Details Findings Procedure Consent Obtained. Pre-Procedure Time Out. Identified patient by full name and date of as verbalized by the patient/guarantor. Does the consent match the physician's order: Yes. Accurate & Complete Informed Consent: Yes. Inpatient/Outpatient History & Physical on Chart: Yes. If H&P is completed, is and addenduem needed: No; If yes, is the addendum complete: N/A. Visualize and Verify Site with Patient/Guarantor: N/A. Relevant Radiology Images available: Yes. Pre-op teaching completed and patient verbalized understanding. The risks, benefits, and alternatives of sedation and/or procedure were discussed by physician. The patient agrees to continue. Procedure started. Correct patient, site and procedure confirmed by cath team. Current diagnosis: Peripheral Arterial Disease. PERRLA. Strong, equal hand multi township assessor bilaterally. Lungs clear x 5 lobes. IV Site on Arrival: 20 gauge in the right wrist. IV Fluids: 0.9% NaCl at KVO. 0 mL infused prior to collaborating supervising physician. Pre Procedural Pulses: left dorsalis pedis was Doppled. Pre Procedural Pulses: right dorsalis pedis was 1+. Pre Procedural Pulses: left posterior tibial was Doppled. Pre Procedural Pulses: right posterior tibial was 1+. Pre Procedural Pulses: right radial was 2+. Pre Procedural Pulses: left radial was 2+. Oxygen started at 2liters/min via nasal canula. bilateral groins was prepped with chloroprep then draped in the usual sterile fashion. Baseline sample Acquired. HR: 75 BPM. (Charlie) contacted and notified of procedure start by Santiago Cobb RN. Equipment: Peripheral. Cardiac Cath Pack. ACIST Manifold Kit Model BT 2000. Heparinized Saline (2 units/mL), 1000 mL bag. Physician arrived. Physician scrubbed in. Immediate Pre-Procedure Time Out. Correct Patient: Yes; Correct Procedure: Yes; Correct Site: No; Correct Patient Position: Yes; Correct Supplies: Yes; Dried Flammable Prep: Yes; Blood Products Available: No;. Lidocaine 1% infiltrated to the right groin. Arterial access obtained. Glidewire inserted. A 6Fr RIM catheter in over glide wire. Glidewire removed. Left leg runoff performed at 10mL for a total of 30mL. 6Fr sheath exchanged for 6FR Flexor sheath. Seeker in over the glidewire. Side port of sheath attached to Normal Saline flush at KVO to maintain patency. Seeker out. Seeker in over Glidewire. Glidewire out. Command wire inserted. Inflation number : 1 Cirilo FOLEY 14 [id number] was prepped and advanced across the Tibial Peroneal Trunk, Left , then inflated to 8 LAVONNE for 1:04 seconds. Balloon pulled back. Results checked. contacted by this user and given update. Left leg runoff performed at 10mL for a total of 20mL. Balloon and wire out. Exchanging the Long Flexor sheath for a 6FR regular sheath. Sheath(s) removed and manual pressure held until hemostasis was achieved. Sterile 4x4 and Op-site applied to the puncture site. No oozing or hematoma noted. Post sheath removal instructions were given and the patient verbalized understanding. Sheath(s) sutured into position with 2-0 silk and sterile 4x4's and Op-site applied over the site. No oozing or signs and symptoms of hematoma noted. Arterial sheath flushed and connected to tranducer and pressure bag with heparinized saline. Post Procedure: Pulses reassessed and unchanged. PERRLA. Strong, equal hand multi township assessor bilaterally. No VTE prophylaxis required. Dr. Zamudio scrubbed out. Contrast type used: Visipaque 320 mgI/mL, 500 mL bottle. PCI Indication: PAD. Post-op diagnosis: Peripheral Arterial Disease. Complications: None. Estimated blood loss: 5mL-10mL. Dr. Zamudio contacted dmeond Guerra for procedure update. Medication's Wasted: Lidocaine 1% = 8 mL. Medication's Wasted: Other = Versed 1 mg. Medication's Wasted: Heparin = 4000 units. Total IV fluids: 63 mL. Procedure completed. Patient transferred by bed to CPRU. Vital chart was stopped. Procedure Medications Start: 7:00 AM Stop: 7:00 AM Medication: Versed Amount: 1 mg Route: I.V. Start: 7:00 AM Stop: 7:00 AM Medication: Fentanyl Amount: 50 mcg Route: I.V. Start: 7:03 AM Stop: 7:03 AM Medication: Versed Amount: 2 mg Route: I.V. Start: 7:03 AM Stop: 7:03 AM Medication: Fentanyl Amount: 100 mcg Route: I.V. Start: 7:27 AM Stop: 7:27 AM Medication: Heparin Amount: 5000 units Route: I.V. Start: 7:33 AM Stop: 7:33 AM Medication: Versed Amount: 1 mg Route: I.V. I, the attending physician, have reviewed and verified all procedure medications. Yes, all medications given per verbal order History/Risk Factors Hypertension: No Dyslipidemia: No Peripheral Arterial Disease (PAD): Yes Myocardial Infarction (MO): No Obesity: No Renal Disease: No Prior Interventions PCI: No CABG: No Valve Surgery: No Report Signatures Finalized by:Dr. Gallo Zamudio MD on 11/09/2019 8:42:23 AM
[2019-11-09 07:02] LABS: Anion Gap 17.1 (5-19); Blood Urea Nitrogen 35 mg/dL (8-23); Calcium 9.7 mg/dL (8.5-10.5); Carbon Dioxide 24 mmol/L (22-29); Chloride 103 mmol/L (98-107); Glucose 95 mg/dL (65-115); Osmolality Calculated 287 mOsm/kg (285-295); Potassium 4.1 mmol/L (3.5-5.1); Sodium 140 mmol/L (136-145)
--- NOTE | 2019-11-09 08:08 | PC.NURSE ---
PASSWORD AA 12 STEPS
--- NOTE | 2019-11-09 09:43 | PM.HP ---
Providers/Chief Complaint Admitting Physician: Robb Primary Care Provider: Janie Agustin MD Chief Complaint: Claudication History of Present Illness Teena Timmons is a 73 year old female who is being put in the hospital for left lower extremity intervention below the knee. She has a complex history which is delineated in multiple notes throughout her chart. She sees an library assistant in [facility]. She was complaining of bilateral leg pain to him. He obtained a noninvasive study which suggested severe disease at the popliteal artery and below in both legs. I saw her in the office shortly thereafter and then placed her in the hospital on the of last month for angiography. We found a completely occluded popliteal artery on the right. It underwent intervention with both plain old balloon and drug-eluting balloon. We were able to open all 3 vessels below the knee. Clinically she has improved. The left leg popliteal is open as is the anterior tibial however the tibial peroneal trunk has a significant stenosis which limits the flow in the peroneal artery and posterior tibial arteries. She is brought back today for intervention on the left leg. She has no open sores on either leg. She has a tremendous number of other medical problems that includes a nonischemic cardiomyopathy with an ICD, recovering alcoholism, history of tobacco abuse, chronic kidney disease, history of meningioma resection, hypertension, COPD, atrial fibrillation and flutter, PVCs, breast cancer, history of stroke treated with TPA, carotid disease, chronic heart failure with occasional exacerbations, sleep apnea, moderate mitral regurgitation, anemia, GI bleeding on anticoagulants and a watchman device in place. She also has narcissistic and borderline personality disorder tendencies. Review of Systems General: Reports: 10 or more systems reviewed and unremarkable except in HPI and below Medications/Allergies Home Medications Medication Instructions Recorded Confirmed Last Taken Type amiodarone 200 mg tablet 200 mg PO DAILY 06/28/19 11/08/19 11/09/19 05:15 History calcium carb-vit D3-minerals 600 1 tab PO DAILY 06/28/19 11/08/19 11/09/19 05:15 History mg calcium-400 unit tablet ferrous sulfate 325 mg (65 mg 325 mg PO BID 06/28/19 11/08/19 11/09/19 05:15 History iron) tablet furosemide 40 mg tablet 80 mg PO DAILY tab 06/28/19 11/08/19 11/08/19 08:00 History magnesium 250 mg tablet 250 mg PO DAILY 06/28/19 11/08/19 11/09/19 05:15 History vitamin B complex 1 tab PO DAILY 06/28/19 11/08/19 11/09/19 05:15 History allopurinol 100 mg tablet 100 mg PO DAILY 07/06/19 11/08/19 11/09/19 05:15 History metoprolol succinate 100 mg 100 mg PO DAILY 07/06/19 11/08/19 11/09/19 05:15 History tablet,extended release 24 hr sacubitril 24 mg-valsartan 26 mg 1 tab PO BID 07/06/19 11/08/19 11/09/19 05:15 History tablet tramadol 50 mg tablet 50 mg PO Q6H PRN 30 Days #30 tab 10/11/19 11/08/19 11/09/19 05:15 Rx clopidogrel 75 mg PO DAILY 30 Days #30 tab 10/20/19 11/08/19 11/09/19 05:15 Rx Allergies Allergy/AdvReac Type Severity Reaction Status Date / Time [id number] Reductase AdvReac Intermediate ADR-Muscle Verified 11/09/19 06:55 Inhibitor Pain TPA Allergy Severe ALGY-Anaphy Uncoded 11/09/19 06:55 laxis PFSH Acute PFSH: Medical History Alcoholism in recovery Atrial fibrillation Breast cancer Cardiomyopathy Carotid stenosis, bilateral CHF (congestive heart failure) CKD (chronic kidney disease) Claudication COPD (chronic obstructive pulmonary disease) CVA (cerebral vascular accident) ICD (implantable cardioverter-defibrillator) in place Mitral regurgitation VALE on CPAP Peripheral vascular disease Presence of Watchman left atrial appendage closure device PUD (peptic ulcer disease) PVCs (premature ventricular contractions) Surgical History History of cardiac radiofrequency ablation History of resection of meningioma S/P cataract extraction S/P lumpectomy of breast Family History Sister Cancer Social History Smoking and tobacco status: former smoker Alcohol intake: former Other details last alcohol use: recovering alcoholic Household members: spouse Marital status: Vitals/I&O/Wt Last Vital Signs Temp 98.8 F 11/09/19 06:39 Pulse 69 11/09/19 06:39 Resp 16 11/09/19 06:39 BP 147/85 11/09/19 06:39 Pulse Ox 95 11/09/19 06:39 11/08/19 11/09/19 11/09/19 22:59 06:59 14:59 Intake Total 120 / 120 Balance 120 / 120 Weight last 48 hrs Weight 202 lb Physical Exam Narrative: EXAM NARRATIVE: GENERAL: In general she looks comfortable at rest HEENT: Exam within normal limits. NECK: Supple without jugular vein distention. The carotid upstroke is normal without bruits. BACK: Exam normal. LUNGS: Clear. HEART: Regular rate and rhythm. ABDOMEN: Benign without organomegaly or tenderness. EXTREMITIES: No edema. No pulses below the knees NEUROLOGIC: Exam normal. SKIN: Unremarkable. Data : 11/09/19 06:30 11/09/19 06:30 A&P Assessment and plan (1) Peripheral vascular disease: Status: Acute (2) VALE on CPAP: Status: Acute (3) Claudication: Status: Acute (4) PVCs (premature ventricular contractions): Status: Acute (5) Mitral regurgitation: Status: Acute (6) ICD (implantable cardioverter-defibrillator) in place: Status: Acute (7) Breast cancer: Status: Acute (8) Cardiomyopathy: Status: Acute (9) CKD (chronic kidney disease): Status: Acute (10) CVA (cerebral vascular accident): Status: Acute (11) Carotid stenosis, bilateral: Status: Acute (12) CHF (congestive heart failure): Status: Acute (13) Atrial fibrillation: Status: Acute (14) Presence of Watchman left atrial appendage closure device: Status: Acute (15) History of cardiac radiofrequency ablation: Status: Acute Additional A&P Information She will undergo angiography of the left leg today with an eye toward intervention below the knee. Attestations Medical Necessity Statement*: Outpatient in a bed. Expect overnight stay. Coding Level of Care Code New Pt Acute Budget Assistant for [facility] Patient Type New History Comprehensive Exam Comprehensive Medical Decision Making High Complexity Diagnoses Peripheral vascular disease I73.9 VALE on CPAP G47.33; Z99.89 Claudication I73.9 PVCs (premature ventricular contractions) I49.3 Mitral regurgitation I34.0 ICD (implantable cardioverter-defibrillator) in place Z95.810 Breast cancer C50.919 Cardiomyopathy I42.9 CKD (chronic kidney disease) N18.9 CVA (cerebral vascular accident) I63.9 Carotid stenosis, bilateral I65.23 CHF (congestive heart failure) I50.9 Atrial fibrillation I48.91 Presence of Watchman left atrial appendage closure device Z95.818 History of cardiac radiofrequency ablation Z98.890
--- NOTE | 2019-11-09 10:34 | PC.NURSE ---
PATIENT REQUESTS TO TAKE HER MORNING MEDICATIONS AT BEDTIME. THIS NURSE CALLED DR. DUTTA TO VERIFY IF THE PATIENT COULD TAKE HER MEDICATIONS AT THAT TIME. DR DUTTA GAVE VERBAL ORDER TO CHANGE THE MEDICATION ADMINISTRATION TIMES. ALFRED IN PHARMACY WAS ASKED TO CHANGE THE ADMINISTRATION TIMES PER DR. DUTTA.
--- NOTE | 2019-11-09 13:19 | PC.NURSE ---
received from cardiac slab installer s/p peripheral angiogram.report received.pt is alert and awake.denies pain at present.av paced on monitor.vss.right femoral arterial sheath intact to pressurized system.drsg is dry and intact and no hematoma noted.right foot is warm to touch and with brisk capillary refill.left and right dp and pt pulses are all dopplerable.instructed in activity restrictions s/p femoral artery procedure...and instructed to notify staff for any bleeding,pain,numbness..or for any concerns at all.pt verb understanding of instructions.
--- NOTE | 2019-11-09 13:24 | PC.NURSE ---
sheath pull: at 10 30 right arterial sheath pulled.manual pressure applied and held x 20 min.vss through-out procedure.no hematoma noted.site dressed with 2x2 guaze and secured with biocclusive drsg.pt tolerated procedure well.instructed in activity restrictions s/p arterial sheath pull...and instructed to notify staff for any bleeding,pain,numbness...or for any concerns at all.pt verb understanding of instructions.
--- NOTE | 2019-11-09 13:54 | PC.CHAP ---
Pastoral Care Encounter/Spiritual Assessment Type of Contact [] Declined lease administrator visit [] Patient/Family/Request visit [] Outpatient visit [] Follow-up visit [] Physician referral [] Code/Alert [X] Routine visit [] Staff referral [] Actively dying [] Patient sleeping [] Family support [] [] Out of room [] Palliative care [] [] Receiving care in room [] Pre-surgical visit [] Trauma [] Long length of stay [] ICU visit [] Other: Relational/Emotional Strength [] Patient feels connected with others/family/visitors/staff [] Distress [] Loneliness/isolation [] Abandonment Spirituality of Patient [] Person of Bernie [] Attends Scientologist of their Bernie [] Believes in Prayer [] Reads Bible or Pentecostal materials [] There are Spiritual issues to be addressed Assistant Health Educator Interventions [] Prayer [] Active listening [] Non-anxious presence [] Spiritual/emotional support [] Crisis/trauma care [] Spiritual counseling [] Bereavement support [] Provided bereavement packet [] Provided Bible/devotional materials [] Provided toy/stuffed animal, coloring book to patient or family member [] Provided Communion [] Anointing/[place] [] Salvation [] Completed spiritual assessment [] Other: Impact on Illness or Injury [] Angry [] Fearful [] Anxious [] Often cries [] Exhaustion [] Unable to work [] Unable to attend rastafari [] Unable to walk/stand [] Unable to read [] Unable to drive [] Unable to eat/drink [] Unable to sleep [] Unable to be with family [] Patient intubated [X] Other: REJECTS SCRIPTURAL TEACHINGS, 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 HOSTILE TO ME WHEN SHE DISCOVERED I AM A SHINTO. Summary Time spent with patient
--- NOTE | 2019-11-09 14:23 | PC.NURSE ---
ivf's decreased to tko (30 cc/hr) at 1400..per dr moss's order.
[2019-11-09] MEDS: ferrous sulfate EC 325 mg Tablet PO (17:11)
--- NOTE | 2019-11-09 18:29 | PC.NURSE ---
at 1720 pt off bedrest. pt ambulated in room.tolerated well.gait steady.no hematoma formation in right groin noted.
[2019-11-09] MEDS: sacubitril/valsartan 24-26 mg Tablet 1 EACH PO (19:16)
--- NOTE | 2019-11-09 19:24 | PC.NURSE ---
ms alexander has been very definitive about her medications..sceduale..what she will and wont take today.refused lasix.states she takes certain medications in the evening (so schedule was adjusted per her request).she stated she had already taken certain medications prior to admission this morning..now she has added on to that list...so mar has reflected her requests.dr moss aware.
[2019-11-09] MEDS: calcium carb-vit d 600mg/400unit 1 Tablet 1 EACH PO (20:12)
[2019-11-09] MEDS: amiodarone 200 mg Tablet PO (20:12)
[2019-11-09] MEDS: clopidogrel 75 mg Tablet PO (20:13)
--- NOTE | 2019-11-09 20:30 | PC.NURSE ---
Received report from LANNY Angel. Pt sitting in chair with no complaints or needs at this time. See assessment.
[2019-11-10] VITALS: BP 131/75; PULSE 70; RESP 16; TEMP 36.6; O2SAT 92
[2019-11-10 04:25] VITALS: BP 131/76; PULSE 70; RESP 17; TEMP 36.6; O2SAT 95
[2019-11-10 04:43] LABS: Basophils % 0.5 %; Eosinophils # 0.1 10^3/uL (0.0-0.8); Eosinophils % 2.5 %; Hematocrit 38.9 % (37.0-47.0); Hemoglobin 12.1 g/dL (11.5-15.3); Lymphocytes # 0.8 10^3/uL (0.8-4.8); Lymphocytes % 17.2 %; Mean Corpuscular HGB Conc 31.1 g/dL (30.0-36.0); Mean Corpuscular Hemoglobin 30.9 pg (28.0-34.0); Mean Corpuscular Volume 99.5 fL (81-99); Mean Platelet Volume 10.9 fL (7.4-10.4); Monocytes # 0.4 10^3/uL (0.2-0.9); Monocytes % 9.6 %; Neutrophils # 3.1 10^3/uL (1.8-7.7); Nucleated Red Blood Cells % 0 %; Platelet Count 174 10^3/cmm (130-400); Red Blood Count 3.91 10^6/uL (4.1-5.3); Red Cell Distribution Width 14.3 % (12.1-15.1); White Blood Count 4.4 10^3/uL (4.0-10.0)
[2019-11-10 05:41] LABS: Anion Gap 16.3 (5-19); Blood Urea Nitrogen 28 mg/dL (8-23); Calcium 9.2 mg/dL (8.5-10.5); Carbon Dioxide 21 mmol/L (22-29); Chloride 108 mmol/L (98-107); Glucose 92 mg/dL (65-115); Osmolality Calculated 289 mOsm/kg (285-295); Potassium 4.3 mmol/L (3.5-5.1); Sodium 141 mmol/L (136-145)
[2019-11-10 07:07] VITALS: BP 148/87; PULSE 70; RESP 20; TEMP 36.6; O2SAT 96
--- NOTE | 2019-11-10 07:21 | PM.DCS ---
Discharge Providers Date of Admission: 11/09/19 08:30 Date of Discharge: November 10, 2019 Attending Provider at Admission: Gallo Zamudio MD Attending Provider at Discharge: Gallo Zamudio MD Primary Care Provider: Janie Agustin MD Diagnoses at Discharge Discharge Diagnosis (1) Peripheral vascular disease: Status: Acute (2) VALE on CPAP: Status: Acute (3) Claudication: Status: Acute (4) PVCs (premature ventricular contractions): Status: Acute (5) Mitral regurgitation: Status: Acute (6) ICD (implantable cardioverter-defibrillator) in place: Status: Acute (7) Breast cancer: Status: Acute (8) Cardiomyopathy: Status: Acute (9) CKD (chronic kidney disease): Status: Acute (10) CVA (cerebral vascular accident): Status: Acute (11) Carotid stenosis, bilateral: Status: Acute (12) CHF (congestive heart failure): Status: Acute (13) Atrial fibrillation: Status: Acute (14) Presence of Watchman left atrial appendage closure device: Status: Acute (15) History of cardiac radiofrequency ablation: Status: Acute Reason for Visit Reason for Visit: Claudication Hospital Course Hospital Course: Patient was brought in electively for intervention to the left lower extremity. 3 weeks ago she had intervention to the right lower extremity and angiography of the left revealed significant disease of the left tibial peroneal trunk. She underwent plain old balloon angioplasty of this vessel via the right common femoral artery. There were no complications. No entry site complications. No bleeding, hematoma or other vascular anomaly at the right common femoral entry site. Creatinine at discharge is 1.4. Her baseline creatinine is about 1.6. Physical Exam Narrative: EXAM NARRATIVE: GENERAL: In general awake and alert HEENT: Exam within normal limits. NECK: Supple without jugular vein distention. The carotid upstroke is normal without bruits. BACK: Exam normal. LUNGS: Clear. HEART: Regular rate and rhythm. ABDOMEN: Benign without organomegaly or tenderness. EXTREMITIES: No edema. Right groin entry site flat, dry without bleeding, hematoma or pulsatile mass. NEUROLOGIC: Exam normal. SKIN: Unremarkable. Discharge Data Data Completed and Pending: Completed Studies During Hospitalization Category Date Time Status PATTERN MAKER PROGRAMER request for service Routin e Exams 11/09/19 07:00 Completed Labs from last 24 hours 11/10/19 11/10/19 04:14 04:14 WBC 4.4 RBC 3.91 L Hgb 12.1 Hct 38.9 MCV 99.5 H MCH 30.9 MCHC 31.1 RDW 14.3 Plt Count 174 MPV 10.9 H Neut % (Auto) 70.0 Lymph % (Auto) 17.2 [place] % (Auto) 9.6 Eos % (Auto) 2.5 Baso % (Auto) 0.5 Neut # (Auto) 3.1 Lymph # (Auto) 0.8 [place] # (Auto) 0.4 Eos # (Auto) 0.1 Baso # (Auto) 0.0 Nucleated RBC % (a uto) 0 Nucleated RBCs # 0.0 Sodium 141 Potassium 4.3 Chloride 108 H Carbon Dioxide 21 L Anion Gap 16.3 BUN 28 H Creatinine 1.4 H Glucose 92 Calculated Osmolal ity 289 Calcium 9.2 Vitals: Last Vital Signs Temp 97.8 F 11/10/19 07:07 Pulse 70 11/10/19 07:07 Resp 20 H 11/10/19 07:07 BP 148/87 11/10/19 07:07 Pulse Ox 96 11/10/19 07:07 Discharge Plan Discharge Patient Disposition: Home, Self-Care Condition: Stable Prescriptions: Continued Entresto 24-26 mg tablet 1 tab PO BID RF: 0 metoprolol succinate 100 mg tablet extended release 24 hr 100 mg PO DAILY RF: 0 allopurinol 100 mg tablet 100 mg PO DAILY RF: 0 furosemide 40 mg tablet 80 mg PO DAILY RF: 0 amiodarone 200 mg tablet 200 mg PO DAILY RF: 0 ferrous sulfate 325 mg (65 mg iron) tablet 325 mg PO BID RF: 0 vitamin B complex [B Complex-Vitamin B12] Tablet 1 tab PO DAILY RF: 0 magnesium 250 mg tablet 250 mg PO DAILY RF: 0 calcium carbonate-vit D3-min 600 mg calcium- 400 unit tablet 1 tab PO DAILY RF: 0 tramadol 50 mg tablet 50 mg PO Q6H PRN (Reason: pain) 30 Days Qty: 30 RF: 0 clopidogrel 75 mg Tablet 75 mg PO DAILY 30 Days Qty: 30 RF: 0 Discharge Orders: Discharge Order (Routine); Ordered 11/10/19 Ordered By: Gallo Zamudio Referrals: Idania Chicas FNP [Nurse Practitioner] - 7-10 days (Check right common femoral artery area and chemistry panel.) Discharge Diet: Cardiac Discharge Activity: Limit activity as instructed Activity Restrictions/Additional Instructions: No change in medications. No lifting over 10 pounds for 2 days. Discharge Attestations Time Spent in Discharge Care*: less than 30 min Specific Discharge Activities: Specific discharge activities: educating patient Quality Metrics Clinical Quality Measures During this hospital stay, did patient experience: None Coding Level of Care Code Established Pt Acute Thread Weaver for Maday Shi Patient Type Established History Detailed Exam Detailed Medical Decision Making Moderate Complexity Diagnoses Peripheral vascular disease I73.9 VALE on CPAP G47.33; Z99.89 Claudication I73.9 PVCs (premature ventricular contractions) I49.3 Mitral regurgitation I34.0 ICD (implantable cardioverter-defibrillator) in place Z95.810 Breast cancer C50.919 Cardiomyopathy I42.9 CKD (chronic kidney disease) N18.9 CVA (cerebral vascular accident) I63.9 Carotid stenosis, bilateral I65.23 CHF (congestive heart failure) I50.9 Atrial fibrillation I48.91 Presence of Watchman left atrial appendage closure device Z95.818 History of cardiac radiofrequency ablation Z98.890
[2019-11-10 07:30] VITALS: BP 148/78; PULSE 71; RESP 20; TEMP 36.6; O2SAT 96
== END 2019-11-10 09:15 ==
LOC: CCL 06:11 → CSU 07:21 → CCL 11-10 08:27 → CSU 11-10 08:29
PROVIDERS: PCP Internal Medicine; Visit Provider Internal Medicine Cardiovascular Disease
DX: I73.9 Peripheral vascular disease, unspecified (principal); G47.33 Obstructive sleep apnea (adult) (pediatric); Z99.89 Dependence on other enabling machines and devices; I49.3 Ventricular premature depolarization; I34.0 Nonrheumatic mitral (valve) insufficiency; Z95.810 Presence of automatic (implantable) cardiac defibrillator; C50.919 Malignant neoplasm of unspecified site of unspecified female breast; I42.9 Cardiomyopathy, unspecified; Z86.73 Personal history of transient ischemic attack (TIA), and cerebral infarction without residual deficits; I65.23 Occlusion and stenosis of bilateral carotid arteries; I48.91 Unspecified atrial fibrillation; Z95.818 Presence of other cardiac implants and grafts; Z98.890 Other specified postprocedural states; Z87.891 Personal history of nicotine dependence; I13.0 Hypertensive heart and chronic kidney disease with heart failure and stage 1 through stage 4 chronic kidney disease, or unspecified chronic kidney disease; N18.9 Chronic kidney disease, unspecified; I50.9 Heart failure, unspecified; Z87.11 Personal history of peptic ulcer disease
CPT/HCPCS: 12345; 36415; 37228; 80048; 85025; C1725; C1769; C1887; C1894; J1644; J2001; J2250; J3010; J7030; Q0163; Q9967

== ENCOUNTER 2019-11-28 13:59 | Outpatient (CLI) | payer MEDICARE, OTHER, SELFPAY | END 2019-11-28 14:00 | disposition home or self-care (01) | LOC: LAB 14:03 | PROVIDERS: PCP Internal Medicine; Visit Provider Nurse Practitioner Adult Health | DX: I50.22 Chronic systolic (congestive) heart failure (principal); I42.8 Other cardiomyopathies | CPT/HCPCS: 36415 ==

== ENCOUNTER 2020-01-08 09:07 | Outpatient (RCR) | payer MEDICARE, OTHER, SELFPAY | END 2020-01-22 23:59 | disposition home or self-care (01) | LOC: CR 09:07 | PROVIDERS: PCP Internal Medicine; Referring Provider Internal Medicine; Visit Provider Internal Medicine | DX: I73.9 Peripheral vascular disease, unspecified (principal); I50.9 Heart failure, unspecified | CPT/HCPCS: 93798 ==

== ENCOUNTER 2020-01-16 10:44 | Outpatient (CLI) | payer MEDICARE, OTHER, SELFPAY ==
[2020-01-16 12:03] LABS: Basophils % 0.5 %; Eosinophils # 0.1 10^3/uL (0.0-0.8); Eosinophils % 2.6 %; Hematocrit 34.8 % (37.0-47.0); Hemoglobin 10.8 g/dL (11.5-15.3); Lymphocytes # 0.5 10^3/uL (0.8-4.8); Lymphocytes % 11.9 %; Mean Corpuscular Hemoglobin 31.7 pg (28.0-34.0); Mean Corpuscular Volume 102.1 fL (81-99); Mean Platelet Volume 11.1 fL (7.4-10.4); Monocytes # 0.3 10^3/uL (0.2-0.9); Monocytes % 7.9 %; Neutrophils # 3.23 10^3/uL (1.8-7.7); Neutrophils % 76.9 %; Nucleated Red Blood Cells % 0 %; Platelet Count 214 10^3/cmm (130-400); Red Blood Count 3.41 10^6/uL (4.1-5.3); Red Cell Distribution Width 15.4 % (12.1-15.1); White Blood Count 4.2 10^3/uL (4.0-10.0)
[2020-01-16 12:14] LABS: Albumin Level 4.1 g/dL (3.5-5.2); Anion Gap 14.1 (5-19); Blood Urea Nitrogen 40 mg/dL (8-23); Carbon Dioxide 26 mmol/L (22-29); Chloride 106 mmol/L (98-107); Glucose 96 mg/dL (65-115); Phosphorus 4.2 mg/dL (2.5-4.5); Potassium 4.1 mmol/L (3.5-5.1); Sodium 142 mmol/L (136-145)
[2020-01-16 12:35] LABS: Creatinine Urine, Random 78 mg/dL (28-217); Microalbum Creatinine Ratio Ur 26 mg/dL (0-20); Microalbumin Random Urine 2 ug/dL (0-20)
[2020-01-16 12:54] LABS: Calcium 8.9 mg/dL (8.5-10.5); Parathyroid Hormone 144.9 pg/mL (15-65)
== END 2020-01-16 10:45 | disposition home or self-care (01) ==
LOC: LAB 10:48
PROVIDERS: PCP Internal Medicine; Visit Provider Internal Medicine Nephrology
DX: N18.3 Chronic kidney disease, stage 3 (moderate) (principal)
CPT/HCPCS: 80069; 82044; 82310; 83970; 85025

== ENCOUNTER → 2020-01-26 08:43 | Outpatient (BNVA) | payer MEDICARE, OTHER, SELFPAY | PROVIDERS: PCP Internal Medicine; Visit Provider Internal Medicine | DX: Z11.59 Encounter for screening for other viral diseases (principal) | CPT/HCPCS: 87635 ==

== ENCOUNTER 2020-01-31 06:17 | Day surgery (SDC) | payer MEDICARE, OTHER, SELFPAY ==
[2020-01-26 11:15] LABS: Basophils % 0.2 %; Eosinophils # 0.1 10^3/uL (0.0-0.8); Eosinophils % 2.6 %; Hematocrit 31.9 % (37.0-47.0); Hemoglobin 10.1 g/dL (11.5-15.3); Lymphocytes # 0.6 10^3/uL (0.8-4.8); Lymphocytes % 10.2 %; Mean Corpuscular HGB Conc 31.7 g/dL (30.0-36.0); Mean Corpuscular Hemoglobin 32.6 pg (28.0-34.0); Mean Corpuscular Volume 102.9 fL (81-99); Mean Platelet Volume 10.3 fL (7.4-10.4); Monocytes # 0.4 10^3/uL (0.2-0.9); Monocytes % 8.1 %; Neutrophils # 4.26 10^3/uL (1.8-7.7); Neutrophils % 78.7 %; Nucleated Red Blood Cells % 0 %; Platelet Count 236 10^3/cmm (130-400); White Blood Count 5.4 10^3/uL (4.0-10.0)
[2020-01-26 11:35] LABS: INR 0.95 (0.8-1.2)
[2020-01-26 11:40] LABS: Anion Gap 13.9 (5-19); Blood Urea Nitrogen 50 mg/dL (8-23); Calcium 9.1 mg/dL (8.5-10.5); Carbon Dioxide 26 mmol/L (22-29); Chloride 97 mmol/L (98-107); Glucose 105 mg/dL (65-115); Osmolality Calculated 275 mOsm/kg (285-295); Potassium 3.9 mmol/L (3.5-5.1); Sodium 133 mmol/L (136-145)
[2020-01-30 11:52] VITALS: BMI 31.4
[2020-01-31] VITALS (8 sets, daily range): BP systolic 114–150; BP diastolic 60–82; PULSE 70–72; RESP 16–24; TEMP 36.7–37; O2SAT 95–99
[2020-01-31] MEDS: sodium chloride 0.9% 1,000 ML 150 ML IV (06:37)
--- NOTE | 2020-01-31 10:26 | SUR.HOLD ---
Admission for overnight hydration. Due to creatinine concerns the patient will be admitted for overnight hydration. Dr. Wong has spoken to the patient. We are currently awaiting a room assignment. The patient has no requests or concerns at this time.
[2020-01-31] MEDS: sodium chloride 0.9% 1,000 ML 75 ML IV (14:31)
--- NOTE | 2020-01-31 16:00 | PC.NURSE ---
admitted in to room 104 from holding area in cdl.report received.pt is alert and awake and oriented x 4.denies pain at present.v paced at 70 on monitor.oriented to room environment.pt requests bsc.states has been urinating frequently today due to ivf's.will hydrate overnight and plan for peripheral angiogram in morning pending bun and reat results.instructed to notify staff for any cp,sob,le pain..or for any concerns at all.pt verb understanding of instructions.
--- NOTE | 2020-01-31 17:00 | PM.HP ---
Providers/Chief Complaint Admitting Physician: Raji Wong MD Primary Care Provider: Janie Agustin MD Chief Complaint: peripheral angio History of Present Illness 74-year-old female with past medical history of atrial fibrillation status post watchman device placement, prior history of GI bleed, hypertension, peripheral artery disease, CVA and heart failure with nonischemic cardiomyopathy is admitted for prehydration prior to peripheral angiogram and possible intervention to her lower extremities tomorrow. She underwent peripheral angiogram in September 2019 which revealed popliteal artery occlusion on the right side. No significant flow was noted below the knee. On the left side there was very little flow in the popliteal artery at the level of the trifurcation. The tibial peroneal trunk and popliteal artery underwent angioplasty with plan and drug-coated balloon resulting in patent popliteal, tibial peroneal trunk, peroneal and posterior tibial arteries. On 11/09/2019 she underwent peripheral angiogram of the left leg with angiography of the left revealing significant disease of the left tibial peroneal trunk. She underwent plain old balloon angioplasty of this vessel via the right common femoral artery. Patient felt well for about 6 weeks when she started again having bilateral lower extremity pain. Initially the pain was present only on exertion. However for the last 2 weeks or so she has been having rest pain. She does not have wounds or nonhealing ulcers on the lower extremities. Chest pain is getting worse now. She describes the rest pain as similar to the discomfort she was having prior to her interventions. Patient has CKD. She is admitted to the hospital for prehydration as her creatinine is 2 and is higher than her baseline. Review of Systems Const: Reports: fatigue; Denies: fever(s), chills, body aches, night sweats or diaphoresis Eyes: Denies: change in vision or blurry vision ENMT: Denies: throat pain, mouth pain or epistaxis Card: Reports: palpitations, dyspnea on exertion and leg pain with exertion (improved); Denies: chest pain, irregular heart rhythm or swelling of feet/ankles Resp: Reports: dyspnea; Denies: productive cough or non-productive cough GI: Denies: nausea, vomiting, hematemesis or hematochezia : Denies: hematuria Musc: Denies: neck pain, back pain, extremity pain or extremity swelling Skin/Breast: Reports: surgical incision; Denies: rash, pruritus or erythema Neuro: Denies: headache(s), numbness in extremities, weakness in extremities, sensory changes, lack of coordination, frequent falls or Slurred speech present Psych: Denies: anxiety, depression, memory loss, suicidal ideation or homicidal ideation Endo: Denies: polyuria or polydipsia Yovanny/Lymph: Reports: easy bruising and easy bleeding Medications/Allergies Home Medications Medication Instructions Recorded Confirmed Last Taken Type amiodarone 200 mg tablet 200 mg PO DAILY 06/28/19 01/31/20 01/30/20 05:30 History 200 MG ferrous sulfate 325 mg (65 mg 325 mg PO BID 06/28/19 01/30/20 01/30/20 05:30 History iron) tablet 325 MG magnesium 250 mg tablet 250 mg PO DAILY 06/28/19 01/30/20 01/31/20 05:30 History 250 MG vitamin B complex 1 tab PO DAILY 06/28/19 01/31/20 01/31/20 05:30 History allopurinol 100 mg tablet 100 mg PO DAILY 07/06/19 01/30/20 01/31/20 05:30 History 100 MG metoprolol succinate 100 mg 100 mg PO DAILY 07/06/19 01/30/20 01/31/20 05:30 History tablet,extended release 24 hr 100 MG sacubitril 24 mg-valsartan 26 mg 1 tab PO BID 07/06/19 01/30/20 01/31/20 05:30 History tablet 1 TAB clopidogrel 75 mg tablet 75 mg PO DAILY #90 tab 12/11/19 01/30/20 01/31/20 05:30 Rx 75 MG furosemide 40 mg tablet 80 mg PO DAILY #180 tab 12/11/19 01/30/20 01/30/20 05:30 Rx 80 MG acetaminophen 500 mg capsule 500 mg PO Q6H PRN 01/12/20 01/30/20 01/31/20 05:30 History 500 MG Allergies Allergy/AdvReac Type Severity Reaction Status Date / Time latex Allergy hives Verified 11/17/19 10:39 [id number] Reductase AdvReac Intermediate ADR-Muscle Verified 11/09/19 06:55 Inhibitor Pain TPA Allergy Severe ALGY-Anaphy Uncoded 11/09/19 06:55 laxis PFSH Acute PFSH: Medical History (Updated 01/31/20 @ 17:17 by Raji Wong M.D) Alcoholism in recovery Atrial fibrillation Breast cancer Cardiomyopathy Carotid stenosis, bilateral CHF (congestive heart failure) CKD (chronic kidney disease) Claudication COPD (chronic obstructive pulmonary disease) CVA (cerebral vascular accident) ICD (implantable cardioverter-defibrillator) in place Mitral regurgitation VALE on CPAP Peripheral vascular disease Presence of Watchman left atrial appendage closure device PUD (peptic ulcer disease) PVCs (premature ventricular contractions) Surgical History History of cardiac radiofrequency ablation History of resection of meningioma S/P cataract extraction S/P lumpectomy of breast Family History Sister Cancer Social History Smoking and tobacco status: former smoker Alcohol intake: former Other details last alcohol use: recovering alcoholic Household members: spouse Marital status: Vitals/I&O/Wt Last Vital Signs Temp 98.1 F 01/31/20 16:27 Pulse 70 01/31/20 16:27 Resp 16 01/31/20 16:27 BP 121/73 01/31/20 16:27 Pulse Ox 96 01/31/20 16:27 01/31/20 01/31/20 01/31/20 06:59 14:59 22:59 Output Total 200 / 200 Balance -200 / -200 Weight last 48 hrs Weight 195 lb Physical Exam Narrative: EXAM NARRATIVE: GENERAL: In general awake and alert HEENT: Exam within normal limits. NECK: Supple without jugular vein distention. The carotid upstroke is normal without bruits. BACK: Exam normal. LUNGS: Clear. HEART: Regular rate and rhythm. ABDOMEN: Benign without organomegaly or tenderness. EXTREMITIES: No edema. Diminished pulses bilaterally NEUROLOGIC: Exam normal. SKIN: Unremarkable. Data : 01/26/20 11:00 01/26/20 11:00 A&P Assessment and plan (1) Critical lower limb ischemia: Status: Acute (2) Peripheral vascular disease: Status: Acute (3) VALE on CPAP: Status: Acute (4) Claudication: Status: Acute (5) Cardiomyopathy: Status: Acute (6) CKD (chronic kidney disease): Status: Acute (7) CHF (congestive heart failure): Status: Acute (8) Atrial fibrillation: Status: Acute Patient has been having bilateral lower extremity rest pain for the last 2 weeks. This is concerning for critical limb ischemia. She had recent interventions done to the lower extremities in recent past. Plan is for peripheral angiogram with possible intervention tomorrow. She is admitted for prehydration as her creatinine is 2 and she has CKD. This creatinine level is higher than her baseline. She will be hydrated for about 24 hours with IV fluids. We will proceed with peripheral angiogram tomorrow with possible intervention. I examined the patient today and have discussed in detail the risks and benefits associated with the Procedure and she has agreed to proceed with the procedure. She understands the risks including bleeding, infection, higher risk of renal function worsening given her CKD and . Continue current medications. Additional A&P Information She will undergo angiography of the left leg tomorrow with an eye toward intervention below the knee. Attestations Medical Necessity Statement*: Patient admitted for prehydration. Depending on if patient undergoes only diagnostic peripheral angiogram or intervention tomorrow length of stay may change from 1 to 2 days. Coding Level of Care Code Acute Electronic Game Developer for Maday Shi Diagnoses Critical lower limb ischemia I99.8 Peripheral vascular disease I73.9 VALE on CPAP G47.33; Z99.89 Claudication I73.9 Cardiomyopathy I42.9 CKD (chronic kidney disease) N18.9 CHF (congestive heart failure) I50.9 Atrial fibrillation I48.91
[2020-01-31] MEDS: ferrous sulfate EC 325 mg Tablet PO (18:47)
[2020-01-31] MEDS: sacubitril/valsartan 24-26 mg Tablet 1 EACH PO (18:48)
--- NOTE | 2020-01-31 19:40 | PC.NURSE ---
Rounding: Patient alert and oriented resting in bed. Patient IV re dressed and arm straighten with a pillow due to pump alarming down stream occlusion. Patient questions answered at this time. Patient denies any pain at this time will continue to monitor.
[2020-01-31] MEDS: amiodarone 200 mg Tablet PO (20:17)
[2020-02-01] VITALS (16 sets, daily range): BP systolic 115–138; BP diastolic 56–79; PULSE 70–86; RESP 14–24; TEMP 36.4–36.7; O2SAT 94–97
[2020-02-01] MEDS: sodium chloride 0.9% 1,000 ML 75 ML IV (04:34)
--- NOTE | 2020-02-01 04:35 | PC.NURSE ---
fluids delayed due to bag just finishing.
[2020-02-01 05:20] LABS: Anion Gap 12.1 (5-19); Blood Urea Nitrogen 34 mg/dL (8-23); Calcium 8.8 mg/dL (8.5-10.5); Carbon Dioxide 24 mmol/L (22-29); Chloride 109 mmol/L (98-107); Glucose 108 mg/dL (65-115); Osmolality Calculated 290 mOsm/kg (285-295); Potassium 4.1 mmol/L (3.5-5.1); Sodium 141 mmol/L (136-145)
--- NOTE | 2020-02-01 07:00 | XACV_ITS ---
Ht: 168 cm Wt: 88 kg BSA: 2.06 m2 Any Known Allergies: Other Gender: Female : 1945 Exam Type: Invasive Peripheral Vascular Procedure(s): Procedure Description: Peripheral Cath Diagnostic Procedure Exam Priority: Routine Lower Extremity Diagnostic Findings Patent bilateral common iliac arteries. No significant disease is noted in the external and internal iliac arteries. Bilateral common femoral arteries are free of significant disease. Bilateral SFA arteries are free of significant disease. Left popliteal artery is patent. Left TP segment that was previously treated has mild 20 to 30% stenosis. Left popliteal artery is patent . Left TP segment that was previously treated has mild 20 to 30% stenosis. Left anterior tibial is patent. It has slow flow. Left posterior tibial artery is patent at origin. It has diffuse disease distally. Left peroneal artery is patent and has good runoff. Left lower extremity has multivessel runoff. Right popliteal artery is patent(it was intervened on during last procedure) Right TP segment is patent. Right anterior tibial artery is not very well visualized. However it seems to be patent at origin. Right posterior tibial and peroneal arteries are patent and supplies good runoff to the foot. At least two-vessel runoff. Conclusions Patent [id number] peripheral arteries. Previously treated below the knee vessels are still patent. There is diffuse below the knee peripheral artery disease, however there is good multivessel runoff to the bilateral feet. Recommendations Continue medical management. Supervised exercise program is strongly encouraged. Access Site Site: Right Femoral artery Sheath Size: 6 Fr Hemost... Method: Perclose (Kim) Hemost... Success: Successful Procedure Details Findings Admit Source: In Patient. Pre-Procedure Time Out. Identified patient by full name and date of as verbalized by the patient/guarantor. Does the consent match the physician's order: Yes. Accurate & Complete Informed Consent: Yes. Inpatient/Outpatient History & Physical on Chart: Yes. If H&P is completed, is and addenduem needed: N/A; If yes, is the addendum complete: N/A. Visualize and Verify Site with Patient/Guarantor: N/A. Relevant Radiology Images available: N/A. Pre-op teaching completed and patient verbalized understanding. The risks, benefits, and alternatives of sedation and/or procedure were discussed by physician. The patient agrees to continue. Procedure started. Correct patient, site and procedure confirmed by cath team. PERRLA. Strong, equal hand molder hand bilaterally. Lungs clear x 5 lobes. IV Site on Arrival: 20 gauge in the right forearm. Pre Procedural Pulses: bilateral dorsalis pedis was Doppled. Pre Procedural Pulses: bilateral posterior tibial was Doppled. Pre Procedural Pulses: bilateral radial was 2+. Oxygen started at 2liters/min via nasal canula. bilateral groins was prepped with chloroprep then draped in the usual sterile fashion. Physician notified. Baseline sample Acquired. HR: 70 BPM. Physician arrived. Physician scrubbed in. Immediate Pre-Procedure Time Out. Correct Patient: Yes; Correct Procedure: Yes; Correct Site: Yes; Correct Patient Position: Yes; Correct Supplies: Yes; Dried Flammable Prep: Yes; Blood Products Available: N/A;. Lidocaine 1% infiltrated to the right groin. Arterial access obtained with micropuncture set. Dr. Saucedo arrived and scrubbed in. A 5FrFr RIM catheter in over wire. Catheter out. Sheath upsized to a 6 Fr. Trailblazer catheter inserted over the wire. Side port of sheath attached to Normal Saline flush at KVO to maintain patency. wire out. hand injection performed. trailblazer out. exchanged long 6F sheath back to short 6F sheath. Mynx Control placed without complications. No signs or symptoms of hematoma noted. Sterile dressing applied per usual sterile fashion. Lot#[id number] exp date: 12-21-2021. Post Procedure: Pulses reassessed and unchanged. PERRLA. Strong, equal hand molder hand bilaterally. No VTE prophylaxis required. Contrast type used: Visipaque 320 mgI/mL, 500 mL bottle. Contrast Material : Visipaque 57 ml. A Perclose (Kim) was successful obtaining hemostatsis at the Right Femoral artery insertion site. Post-op diagnosis: mild BAD. Complications: none. Estimated blood loss: 5mL-10mL. Procedure completed. Patient transferred by bed to 1st floor. Vital chart was stopped. Medication's Wasted: Heparin = 4000 units. Medication's Wasted: Lidocaine 1% = 6 mL. Medication's Wasted: Other = versed 1 mg. Total IV fluids: 75 mL. Procedure Medications Start: 8:22 AM Stop: 8:22 AM Medication: Versed Amount: 1 mg Route: I.V. Start: 8:22 AM Stop: 8:22 AM Medication: Fentanyl Amount: 50 mcg Route: I.V. Start: 8:32 AM Stop: 8:32 AM Medication: Versed Amount: 1 mg Route: I.V. Start: 8:38 AM Stop: 8:38 AM Medication: Fentanyl Amount: 50 mcg Route: I.V. I, the attending physician, have reviewed and verified all procedure medications. Yes, all medications given per verbal order History/Risk Factors Hypertension: No Dyslipidemia: No Peripheral Arterial Disease (PAD): Yes Obesity: No Renal Disease: Yes Tobacco Use: Former Prior Interventions PCI: No CABG: No Valve Surgery: No Report Signatures Finalized by:Raji Wong MD on 02/05/2020 10:11:23 AM
--- NOTE | 2020-02-01 08:21 | PC.NURSE ---
0808 patient off unit for procedure
--- NOTE | 2020-02-01 09:21 | USCV_ITS ---
Teena artis Age: 74 Gender: F : 1945 Exam Date: 02/01/2020 09:34 Ordering Phys: Raji Wong M.D ([email or web address]) Technologist: Billie Evans Exam Location: [facility] [place] Indication: EF EVAL BP: 126 / 63 HR: 70 Rhythm: PACED Technical Quality: Adequate MEASUREMENTS (Male / Female) Normal Values 2D ECHO LV Diastolic Diameter PLAX 5.6 cm 4.2 - 5.9 / 3.9 - 5.3 cm LV Systolic Diameter PLAX 4.2 cm LV Chamber Size 4.6 cm IVS Diastolic Thickness 1.3 cm 0.6 - 1.0 / 0.6 - 0.9 cm IVS Systolic Thickness 1.6 cm LVPW Diastolic Thickness 1.4 cm 0.6 - 1.0 / 0.6 - 0.9 cm LVPW Systolic Thickness 1.7 cm RV Chamber Size 3.7 cm LVOT Diameter 2.0 cm LV Ejection Fraction 2D Teich 49.4 % LV Ejection Fraction MOD 2C 15.1 % LV Ejection Fraction 2C AL 11.3 % LA Diameter 5.2 cm LA Width 5.4 cm LA Height 7.2 cm RA Width 4.5 cm RA Height 5.7 cm Aorta at Sinotubular Diameter 3.1 cm M-MODE LV Diastolic Diameter MM 5.4 cm 4.2 - 5.9 / 3.9 - 5.3 cm LV Systolic Diameter MM 4.7 cm LV Ejection Fraction MM Teich 28.8 % IVS Diastolic Thickness MM 1.6 cm 0.6 - 1.0 / 0.6 - 0.9 cm IVS Systolic Thickness MM 1.5 cm LVPW Diastolic Thickness MM 1.9 cm 0.6 - 1.0 / 0.6 - 0.9 cm LVPW Systolic Thickness MM 1.7 cm RV Diastolic Diameter MM 2.3 cm Aortic Annulus Diameter 3.3 cm LA Ao Ratio MM 1.6 MV E Point Septal Separation 1.4 cm FINDINGS Left Ventricle LV systolic funtion is mild to moderately reduced with EF of 40- 45%. Mild to moderate global hypokinesis is noted. LV is normal in size and LV thickness is normal. Right Ventricle Right Atrium Left Atrium Left atrium is severely dilated Mitral Valve Aortic Valve Grossly normal Tricuspid Valve Pulmonic Valve Pericardium Aorta CONCLUSIONS This is a limited limited echocardiogram to assess LV systolic function. LV systolic funtion is mild to moderately reduced with EF of 40- 45% Raji Wong MD (Electronically Signed) Final Date: 01 February 2020 11:00 S
--- NOTE | 2020-02-01 09:29 | W.PM.OPSUD ---
Surgery/Procedure H&P Update DATE OF PROCEDURE: February 01, 2020 DATE H&P PERFORMED: 01/31/20 H&P UPDATE INFORMATION: I have reviewed H&P completed within last 30 days and I have examined patient prior to procedure PREOP DIAGNOSIS: Critical limb ischemia PRIMARY INDICATION FOR PROCEDURE: Critical limb ischemia PLANNED PROCEDURE: Operation Date: 01/31/20 10:00 Proposed Procedures p Peripheral Diagnostic(Bilateral) - Raji Wong M.D PATIENT REASSESSED PRIOR TO SEDATION, WITH NO CHANGE NOTED: Yes PHYSICAL EXAM: alert, oriented x 3 and clear to auscultation bilaterally AIRWAY EVAL/ANESTHESIA PLAN: normal airway, see other exam findings, ASA II, Risks, benefits & alternatives of sedation and/or procedure discussed and Patient agrees to continue as planned
[2020-02-01] MEDS: metoprolol succinate ER (24 HR) 100 mg Tablet PO (10:57)
[2020-02-01] MEDS: clopidogrel 75 mg Tablet PO (10:57)
[2020-02-01] MEDS: allopurinol 100 mg Tablet PO (10:57)
[2020-02-01] MEDS: sacubitril/valsartan 24-26 mg Tablet 1 EACH PO (10:57)
--- NOTE | 2020-02-01 12:37 | PC.NURSE ---
patient completed recommended bed rest no s/s of bleeding from groin
--- NOTE | 2020-02-01 14:28 | P.DS_ITS ---
Discharge Providers Date of Admission: January Date of Discharge: February 01, 2020 Attending Provider at Discharge: Raji Wong M.D Primary Care Provider: Janie Agustin MD Diagnoses at Discharge Discharge Diagnosis (1) Critical lower limb ischemia: Status: Resolved (2) Peripheral vascular disease: Status: Acute (3) VALE on CPAP: Status: Acute (4) Claudication: Status: Acute (5) Cardiomyopathy: Status: Acute (6) CKD (chronic kidney disease): Status: Acute (7) CHF (congestive heart failure): Status: Acute (8) Atrial fibrillation: Status: Acute Reason for Visit Reason for Visit: Brief History: Peripheral angiogram/ Prehydration Hospital Course Discharge Summary: 74-year-old female with past medical history of atrial fibrillation status post watchman device placement, prior history of GI bleed, hypertension, peripheral artery disease, CVA and heart failure with nonischemic cardiomyopathy is admitted for prehydration prior to peripheral angiogram and possible intervention to her lower extremities tomorrow. She underwent peripheral angiogram in September 2019 which revealed popliteal artery occlusion on the right side. No significant flow was noted below the knee. On the left side there was very little flow in the popliteal artery at the level of the trifurcation. The tibial peroneal trunk and popliteal artery underwent angioplasty with plan and drug-coated balloon resulting in patent popliteal, tibial peroneal trunk, peroneal and posterior tibial arteries. Right sided popliteal artery was intervened upon in October with good results. Patient started having leg pains about 4-6 weeks post interventions. This progressed to rest pain with significant reduction in walking distance. We planned to proceed with peripheral angiogram, given possibility of critical limb ischemia. Given her CKD, she was prehydrated with 24 Hours of IV fluids in order to reduce the risk of contrast induced nephropathy. Her creatinine went down from 2.0 to 1.8. However, angiogram revealed patent vessels that were intervened on recently. Patient's symptoms are not explained by PAD. We repeated the echo to see if EF has normalized and if we can restart the Cilostazol, however, EF is still midly reduced. Patient will need to continue the supervised exercise program and alternative cause of bilateral leg pain will need to be assessed as well. Physical Exam Narrative: EXAM NARRATIVE: GENERAL: In general awake and alert HEENT: Exam within normal limits. NECK: Supple without jugular vein distention. The carotid upstroke is normal without bruits. BACK: Exam normal. LUNGS: Clear. HEART: Regular rate and rhythm. ABDOMEN: Benign without organomegaly or tenderness. EXTREMITIES: No edema. Diminished pulses bilaterally NEUROLOGIC: Exam normal. SKIN: Unremarkable. Discharge Data Data Completed and Pending: Completed Studies During Hospitalization Category Date Time Status CV echo limited 9 [id number] Routine Ultrasound 02/01/20 09:21 Completed Pending at discharge Category Date Time Status CHEMICAL PROJECT ENGINEER request for service Routin e Exams 01/31/20 07:00 Ordered CHEMICAL PROJECT ENGINEER request for service Routin e Exams 02/01/20 08:12 Ordered Labs from last 24 hours 02/01/20 04:12 Sodium 141 Potassium 4.1 Chloride 109 H Carbon Dioxide 24 Anion Gap 12.1 BUN 34 H Creatinine 1.8 H GFR Calculation Not Reportable Glucose 108 Calculated Osmolal ity 290 Calcium 8.8 Vitals: Last Vital Signs Temp 97.6 F 02/01/20 11:52 Pulse 86 02/01/20 11:52 Resp 18 02/01/20 11:52 BP 131/68 02/01/20 11:52 Pulse Ox 96 02/01/20 11:52 Discharge Attestations Time Spent in Discharge Care*: greater than 30 min Specific Discharge Activities: Specific discharge activities: educating patient, educating and/or supporting family/caregiver and documenting/other paperwork Status at Discharge: Cognitive status at discharge: cognitively intact , Behavioral status at discharge: cooperative , Functional status at discharge: independent ambulation Overall status at discharge: patient is back to baseline Quality Metrics Clinical Quality Measures During this hospital stay, did patient experience: None Coding Level of Care Code Acute Seed Laboratory Assistant for Maday Fwpriscila Diagnoses Critical lower limb ischemia I99.8 Peripheral vascular disease I73.9 VALE on CPAP G47.33; Z99.89 Claudication I73.9 Cardiomyopathy I42.9 CKD (chronic kidney disease) N18.9 CHF (congestive heart failure) I50.9 Atrial fibrillation I48.91
== END 2020-02-01 13:47 | disposition home or self-care (01) ==
LOC: CCL 06:18 → CSU 14:18
PROVIDERS: PCP Internal Medicine; Visit Provider Internal Medicine
DX: E11.51 Type 2 diabetes mellitus with diabetic peripheral angiopathy without gangrene (principal); I99.8 Other disorder of circulatory system; G47.33 Obstructive sleep apnea (adult) (pediatric); Z99.89 Dependence on other enabling machines and devices; I42.9 Cardiomyopathy, unspecified; N18.9 Chronic kidney disease, unspecified; I50.9 Heart failure, unspecified; I48.91 Unspecified atrial fibrillation; Z87.891 Personal history of nicotine dependence; I13.0 Hypertensive heart and chronic kidney disease with heart failure and stage 1 through stage 4 chronic kidney disease, or unspecified chronic kidney disease; Z86.73 Personal history of transient ischemic attack (TIA), and cerebral infarction without residual deficits
CPT/HCPCS: 12345; 36415; 75716; 80048; 85025; 85610; 93308; C1760; C1769; C1887; C1894; J1644; J2250; J3010; J7030; Q9967

== ENCOUNTER → 2020-02-08 15:37 | Outpatient (BNVA) | payer MEDICARE, OTHER, SELFPAY | PROVIDERS: PCP Internal Medicine; Visit Provider Nurse Practitioner Family | DX: I73.9 Peripheral vascular disease, unspecified (principal); Z87.891 Personal history of nicotine dependence | CPT/HCPCS: 80048 ==

== ENCOUNTER 2020-03-15 10:14 | Day surgery (SDC) | payer MEDICARE, OTHER, SELFPAY ==
[2020-03-15] VITALS (8 sets, daily range): BP systolic 108–129; BP diastolic 55–79; PULSE 70–97; RESP 16–18; TEMP 36.2–36.9; O2SAT 96–99; BMI 31.4
[2020-03-15 10:50] LABS: Hematocrit 24.4 % (37.0-47.0); Hemoglobin 7.2 g/dL (11.5-15.3)
--- NOTE | 2020-03-15 11:28 | SUR.PREOP ---
patient took home dose of po tylenol.
[2020-03-15] MEDS: diphenhydrAMINE 25 mg Capsule PO (12:15)
--- NOTE | 2020-03-15 14:57 | SUR.PREOP ---
patient taken to [facility] for remainder or transfusion. pt awake and alert, taken by wheelchair. pt told to wait in the car until visiting hours at 1600. report given to Dara Lion RN. Pt ambulated to bed from wheelchair.
[2020-03-15] MEDS: sodium chloride 0.9% (100 ml) 100 ML ×2 (16:20)
--- NOTE | 2020-03-15 19:10 | PC.NURSE ---
Patient taken in wheelchair by this nurse to personal vehicle at surgical entrance with patient . All personal belongings with patient.
[2020-03-16 00:50] VITALS: BP 129/67; PULSE 97; RESP 18; TEMP 36.6; O2SAT 97
== END 2020-03-15 19:10 | disposition home or self-care (01) ==
LOC: OPS 10:18 → MEDSURG 15:09
PROVIDERS: PCP Internal Medicine; Visit Provider Internal Medicine
DX: D62 Acute posthemorrhagic anemia (principal)
CPT/HCPCS: 36415; 36430; 85014; 85018; 86850; 86900; 86902; 86920; P9016

== ENCOUNTER 2020-05-02 16:05 | Outpatient (CLI) | payer MEDICARE, OTHER, SELFPAY ==
[2020-05-02 16:53] LABS: Anion Gap 16.2 (5-19); Blood Urea Nitrogen 47 mg/dL (8-23); Calcium 9.3 mg/dL (8.5-10.5); Carbon Dioxide 26 mmol/L (22-29); Chloride 98 mmol/L (98-107); Glucose 78 mg/dL (65-115); NT Pro B Type Natriuretic Pept 4081 pg/mL (0-450); Osmolality Calculated 293 mOsm/kg (285-295); Potassium 4.2 mmol/L (3.5-5.1); Sodium 136 mmol/L (136-145)
== END 2020-05-02 16:06 | disposition home or self-care (01) ==
LOC: LAB 16:11
PROVIDERS: PCP Internal Medicine; Visit Provider Nurse Practitioner Adult Health
DX: I50.22 Chronic systolic (congestive) heart failure (principal)
CPT/HCPCS: 36415; 80048; 83880

== ENCOUNTER 2020-07-15 12:50 | Outpatient (CLI) | payer MEDICARE, OTHER, SELFPAY ==
[2020-07-15 13:35] LABS: Basophils % 0.3 %; Eosinophils # 0.1 10^3/uL (0.0-0.8); Eosinophils % 1.5 %; Hematocrit 41.2 % (37.0-47.0); Hemoglobin 12.8 g/dL (11.5-15.3); Lymphocytes # 0.5 10^3/uL (0.8-4.8); Lymphocytes % 8.6 %; Mean Corpuscular HGB Conc 31.1 g/dL (30.0-36.0); Mean Corpuscular Volume 96.7 fL (81-99); Mean Platelet Volume 10.6 fL (7.4-10.4); Monocytes # 0.5 10^3/uL (0.2-0.9); Monocytes % 8.5 %; Neutrophils # 4.76 10^3/uL (1.8-7.7); Neutrophils % 80.8 %; Nucleated Red Blood Cells % 0 %; Platelet Count 186 10^3/cmm (130-400); Red Blood Count 4.26 10^6/uL (4.1-5.3); Red Cell Distribution Width 15.9 % (12.1-15.1); White Blood Count 5.9 10^3/uL (4.0-10.0)
[2020-07-15 13:56] LABS: Urine Creatinine 29 mg/dL (28-217)
[2020-07-15 13:57] LABS: Albumin Level 3.7 g/dL (3.5-5.2); Anion Gap 15.3 (5-19); Blood Urea Nitrogen 41 mg/dL (8-23); Calcium 8.9 mg/dL (8.5-10.5); Carbon Dioxide 23 mmol/L (22-29); Chloride 106 mmol/L (98-107); Glucose 119 mg/dL (65-115); Phosphorus 4.1 mg/dL (2.5-4.5); Potassium 4.3 mmol/L (3.5-5.1); Sodium 140 mmol/L (136-145)
[2020-07-15 14:06] LABS: Calcium 9.3 mg/dL (8.5-10.5); Parathyroid Hormone 112.5 pg/mL (15-65)
== END 2020-07-15 12:51 | disposition home or self-care (01) ==
LOC: LAB 12:53
PROVIDERS: PCP Internal Medicine; Visit Provider Internal Medicine Nephrology
DX: N18.30 Chronic kidney disease, stage 3 unspecified (principal)
CPT/HCPCS: 36415; 80069; 82310; 82570; 83970; 85025

== ENCOUNTER 2020-07-22 11:40 | Outpatient (CLI) | payer MEDICARE, OTHER, SELFPAY ==
[2020-07-22 12:16] LABS: Basophils % 0.6 %; Eosinophils # 0.1 10^3/uL (0.0-0.8); Eosinophils % 1.7 %; Hematocrit 42.8 % (37.0-47.0); Hemoglobin 13.6 g/dL (11.5-15.3); Lymphocytes # 0.6 10^3/uL (0.8-4.8); Lymphocytes % 11.3 %; Mean Corpuscular HGB Conc 31.8 g/dL (30.0-36.0); Mean Corpuscular Hemoglobin 30.2 pg (28.0-34.0); Mean Corpuscular Volume 95.1 fL (81-99); Mean Platelet Volume 10.6 fL (7.4-10.4); Monocytes # 0.4 10^3/uL (0.2-0.9); Monocytes % 6.8 %; Neutrophils # 4.22 10^3/uL (1.8-7.7); Neutrophils % 79.2 %; Nucleated Red Blood Cells % 0 %; Platelet Count 272 10^3/cmm (130-400); White Blood Count 5.3 10^3/uL (4.0-10.0)
[2020-07-22 12:37] LABS: Alanine Aminotransferase 17 U/L (0-33); Albumin Level 3.9 g/dL (3.5-5.2); Alkaline Phosphatase 169 IU/L (35-105); Anion Gap 17.2 (5-19); Aspartate Amino Transferase 13 U/L (0-32); Blood Urea Nitrogen 54 mg/dL (8-23); Calcium 9.3 mg/dL (8.5-10.5); Carbon Dioxide 27 mmol/L (22-29); Chloride 99 mmol/L (98-107); Globulin 3.3 g/dL (1.3-4.6); Glucose 90 mg/dL (65-115); Osmolality Calculated 302 mOsm/kg (285-295); Potassium 4.2 mmol/L (3.5-5.1); Sodium 139 mmol/L (136-145); Total Bilirubin 0.3 mg/dL (0.15-1.2); Total Protein 7.2 g/dL (6.6-8.7)
--- NOTE | 2020-07-22 14:25 | ONC FU_ITS ---
Dr. 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 She had a anaphylactic reaction to tPA requiring intubation in October of 2013, but eventually recovered from stroke with minimal neurological deficits. She has a history of nonischemic cardiomyopathy and prior alcoholism. She underwent a CT of the chest on 05/04/14, done for a followup of pulmonary nodule which was negative, but it incidentally noted to have a right breast mass. Her mammogram on 05/08/2014 showed a 2 cm mass at 12:00 position extending posteriorly to the chest wall. On 05/16/2014 she underwent an excisional biopsy of the right breast and right sentinel lymph node biopsy. Intraoperatively, the resection was carried out all the way up the pectoralis muscle. Her surgical pathology showed a 2.1 cm low-grade infiltrating ductal carcinoma, posterior margins involved with the DCIS. There was lymphovascular invasion present. One sentinel lymph node was positive for metastatic disease. Prognostic markers showed ER 99%, IA 14%, HER-2/cindy 1+ by IHC and FISH not amplified at 1.2. Thus, pT2 pN1a M0, pathologic stage IIB. She was first seen on 06/08/2014. She declined adjuvant chemotherapy. She completed adjuvant radiation treatment to the right breast on 09/17/14. Adjuvant hormonal therapy with Arimidex began on 07/04/14. Baseline DEXA scan normal. Vitamin D deficiency found, she began on high-dose replacement. had her bone scan done on August 2016 and it was normal tolerating Arimidex very well lAs per patient, she has history of iron deficiency anemia, initially she was diagnosed in 2002 in [place], at that time she underwent EGD colonoscopy and bone marrow evaluation and bone marrow showed low iron and she was started on ferrous sulfate so, for the last 15 years she she has been taken it diligently. Patient was on anticoagulation for cardiac reasons and recently in April 2018, underwent cardiac procedure and at that time anticoagulation was discontinued and restarted on Plavix and aspirin. As per patient her hemoglobin was 12.1 on 05/16/2018 much repeat CBC on 06/14/2018 showed hemoglobin 7.3 g. She was given 3 units of packed RBCs with that her hemoglobin improved to 10 g and repeat CBC on 07/14/2018 showed white blood count 8 hemoglobin 9.3 crit 28.9 MCV 98 platelets 275,000 creatinine 1.26. Now on daily ferrous sulfate , Etiology of significant drop in hemoglobin was not clear as there was no evidence of gross bleeding. As per patient she had colonoscopy done last year by Dr. Puente and it was normal EGD done on 08/05/2018 showed gastritis with erythematous, ulcerative, erosion. There was no mucosal bleeding and rest of the exam was normal. Her iron studies done by Dr. Puente her PMD on 08/04/2018 showed ferritin 17, TIBC 374, B12 955, TSH 3.45. parenteral iron was given in Dr. Puente's office. She was advised to restart Arimidex but took it for 4 days and then stopped taking it because of she started feeling weak went to emergency room where her hemoglobin was 8.4 and then follow-up labs in her primary care physician office was 7.3 then loss she was given 2 units of packed RBCs and on Wednesday she underwent EGD.Restarted on Arimidex, tolerating well now Since her last visit patient said in November 2018 she received 2 units of packed RBC 4 hemoglobin 7.1 g subsequently on 12/16/2018 she underwent repeat EGD by Dr. Puente which showed bleeding stomach ulcer, as per patient cauterization was done with that bleeding stopped. Her repeat CBC done on 01/12/2019 shows white blood count 6.3 hemoglobin 12.7 hematocrit 37.8 platelets 259,000 and on 02/28/2019, as per patient, CBC done in her PMDs office showed hemoglobin 13.6. Other medical issues, recently diagnosed with progressive congestive heart failure as there is a drop in her ejection fraction from 45 to 20, now cardiac workup is in progress to rule out underlying coronary artery disease. Patient developed left foot pain for which x-ray of left foot was done on 01/30/2019 which showed no acute findings but osteoporosis in the mild first metatarsophalangeal joint degenerative arthritis changes. Completed 5 years of adjuvant therapy with Arimidex on 07/10/2019 As per patient recently underwent EGD which showed gastric ulcer and Dr. Puente did cauterization since then her hemoglobin has been improving and on 07/10/2019 her hemoglobin gone up to 13.5 hematocrit 42.5 and white blood count 5.5, platelets 214,000. Patient also underwent multiple cardiac procedures including pacemaker placement, AV node ablation, Came for follow-up, denies any specific complaints, no fever chills, no nausea or vomiting, no diarrhea or constipation, no new bony pains, as per patient she is due for follow-up mammogram now and already has appointment for it. . Medications: Acetaminophen 1 Tablet (of 500 mg) Oral PRN, Allopurinol 1 Tablet (of 100 mg) Oral daily, Amiodarone HCl 1 Tablet (of 200 mg) Oral daily, Anastrozole 1 (1 mg) Tablet Oral daily, B Complex Tablet Oral daily, Bumex (1 mg) Tablet Oral Take as Directed, Calcitrate Plus D 1 Tablet (of 315-200 mg - Units) Oral daily, Corlanor 1 Tablet (of 5 mg) Oral b.i.d., Entresto 1 Tablet (of 25 mg) Oral b.i.d., Ferrous Sulfate 1 (325 (65 fe) mg) Tablet Oral b.i.d., Lansoprazole 1 Tablet (of 30 mg) Tablet Dispersable Oral daily, Lasix 1 (80 mg) Tablet Oral daily, Magnesium 1 (250 mg) Tablet Oral daily, Metoprolol Succinate ER 1 Tablet (of 100 mg) Tablet SR 24 HR Oral daily Allergies: Latex (bandaids), statins, and tpa. Review of Systems: Review of Systems is not available for this patient. Vital Signs: Performed on Jul 22, 2020 13:15 Height - 66.00 in Weight - 201.2 lbs (LOW) BSA - 2.01 sq.m BMI - 32.47 (HIGH) Temperature - 96.9 F (LOW) Pulse - 108 /min (HIGH) Respiration - 20 /min BP - 118/76 mm(hg) O2 Sat - 97 % Pain - 2 Fatigue - 3 Performance Status: 1 - No physically strenuous activity, but ambulatory and able to carry out light or sedentary work (e.g. office work, light house work). (ECOG) Physical Examination: Respiratory - Lungs are clear to auscultation, Cardiovascular - Irregular rate and rhythm, Gastrointestinal - Soft, bowel sounds present, Extremities - Trace edema bilaterally. Lab/Imaging: Most recent lab results are not available for this patient. Impression: This is a 73-year-old postmenopausal woman with stage IIB, [id number], ER/IA positive, HER-2 negative invasive ductal carcinoma of the right breast, with a positive posterior margin involved with DCIS. As per surgeon, the resection was carried out all the way back to the pectoralis musculature. No further breast tissue remains posterior to the mass itself. She declined adjuvant chemotherapy. She completed adjuvant radiation treatment. Adjuvant hormonal therapy with Arimidex for 5 years began on 07/04/14. Completed 5 years of Arimidex on 07/10/2019 Mammogram in May 2016 was BIRADS II Mammogram done on 06/07/2017 showed BI-RADS 2???benign mammogram done on July 11, 2019 showed BI-RADS 2, benign Alkaline phosphatase is elevated . No bony symptoms. History of iron deficiency anemia diagnosed in 2002 with bone marrow biopsy done in [place] showed low iron stores in bone marrow. And normal colonoscopy and EGD at that time. Patient is on daily ferrous sulfate since then. History of 3 packed RBCs infusion on 06/14/2018 at that time her hemoglobin was 7.3 compared to 12.1 on 05/16/2018, etiology was not clear e.g. chronic GI blood loss from upper GI or small bowel AVMs as bilirubin was within normal limits Status post 2 units of packed RBC on 08/04/2018 followed by EGD on 08/05/2018 which showed gastritis but no active bleeding and her repeat iron studies on 08/04/2018 showed ferritin 17 TIBC 374 B12 955, TSH 3.45. s/p parenteral iron in Dr. Puente's office History of chronic anticoagulation till April 2019 when she underwent cardiac procedure and after that antipronation was discontinued and started on Plavix and aspirin. Plan: Patient regarding her labs white blood count 5.3 hemoglobin 13.6 hematocrit 42.8 platelets 272,000 CMP within normal limits except creatinine 1.8 and BUN 54 Clinically, patient is doing well with no new signs symptom suggestive of recurrence of disease, her mammogram done on July 11, 2019 was BI-RADS 2 and now she is due for yearly follow-up mammogram, patient already has appointment., We will continue to monitor and she will return to 1 year with CBC CMP and follow-up mammogram As far as history of anemia is concerned, her hemoglobin is in normal range, will continue monitor Mild renal insufficiency with elevated BUN probably due to diuretic overuse, as per patient she thought she gained some weight so she took extra dose of diuretics, she was advised to follow her PMD and cardiology recommendation as far as diuretic use is concerned, patient is also following nephrology. Signed By: Ace Dukes M.D. <<Signature on File>>
== END 2020-07-22 11:41 | disposition home or self-care (01) ==
LOC: ONCMED 11:42
PROVIDERS: PCP Internal Medicine; Visit Provider Internal Medicine Hematology & Oncology
DX: Z08 Encounter for follow-up examination after completed treatment for malignant neoplasm (principal); Z85.3 Personal history of malignant neoplasm of breast; D50.9 Iron deficiency anemia, unspecified; Z79.01 Long term (current) use of anticoagulants; Z92.21 Personal history of antineoplastic chemotherapy; Z79.899 Other long term (current) drug therapy
CPT/HCPCS: 80053; 85025; G0463

== ENCOUNTER 2020-07-29 13:56 | Outpatient (CLI) | payer MEDICARE, OTHER, SELFPAY ==
--- NOTE | 2020-07-29 14:02 | MM_ITS ---
WS: [id number] BILATERAL DIGITAL DIAGNOSTIC MAMMOGRAM MAMMOGRAPHY WITH CAD CLINICAL INFORMATION: HX OF BREAST CA HISTORY: Right breast soreness. COMPARISON: July 11, 2019 TECHNIQUE: Bilateral CC, MLO, and ML views. FINDINGS: The breasts are composed of heterogeneous fibroglandular density, which can limit the detection of sm all underlying mass lesions. Punctate and lucent centered calcifications. Stable clustered calcificat ions central right breasto. Cardiac pacer. No suspicious focal mass, asymmetry, calcifications, or architectural distortion. No evidence of svitlana gnancy. MM/[place] [id number] IMPRESSION: BI-RADS: 2-Benign FOLLOW UP: 1 Year Follow-up Recommend return to annual diagnostic mammography.
== END 2020-07-29 13:57 | disposition home or self-care (01) ==
LOC: RADSHAW 14:00
PROVIDERS: PCP Internal Medicine; Visit Provider Internal Medicine
DX: Z85.3 Personal history of malignant neoplasm of breast (principal)
CPT/HCPCS: 77066

== ENCOUNTER 2020-07-29 14:29 | Outpatient (CLI) | payer MEDICARE, OTHER, SELFPAY ==
[2020-07-29 15:38] LABS: Anion Gap 16.4 (5-19); Blood Urea Nitrogen 64 mg/dL (8-23); Calcium 9.1 mg/dL (8.5-10.5); Carbon Dioxide 24 mmol/L (22-29); Chloride 102 mmol/L (98-107); Glucose 111 mg/dL (65-115); NT Pro B Type Natriuretic Pept 3383 pg/mL (0-450); Osmolality Calculated 305 mOsm/kg (285-295); Potassium 4.4 mmol/L (3.5-5.1); Sodium 138 mmol/L (136-145)
== END 2020-07-29 14:30 | disposition home or self-care (01) ==
PROVIDERS: PCP Internal Medicine; Visit Provider Nurse Practitioner Adult Health
DX: I50.22 Chronic systolic (congestive) heart failure (principal)
CPT/HCPCS: 80048; 83880

== ENCOUNTER → 2020-08-22 16:25 | Outpatient (BNVA) | payer MEDICARE, OTHER, SELFPAY | PROVIDERS: PCP Internal Medicine; Visit Provider Nurse Practitioner | DX: M25.529 Pain in unspecified elbow (principal) | CPT/HCPCS: 73080 ==

== ENCOUNTER 2020-11-21 06:00 | Outpatient (RCR) | payer MEDICARE, OTHER, SELFPAY | END 2020-11-21 23:00 | disposition home or self-care (01) | LOC: SOT 06:00 | PROVIDERS: PCP Internal Medicine; Referring Provider Internal Medicine; Visit Provider Internal Medicine | DX: R26.89 Other abnormalities of gait and mobility (principal); I50.22 Chronic systolic (congestive) heart failure | CPT/HCPCS: 97167; 97530 ==

== ENCOUNTER 2020-12-05 13:54 | Observation (INO) | payer MEDICARE, OTHER, SELFPAY ==
[2020-12-05] VITALS (8 sets, daily range): BP systolic 128–163; BP diastolic 76–92; PULSE 69–72; RESP 16–19; TEMP 36.7; O2SAT 92–99; BMI 33.0
--- NOTE | 2020-12-05 15:42 | USR_ITS ---
PROCEDURE INFORMATION: Exam: US Duplex Left Lower Extremity Veins, Limited Exam date and time: 12/05/2020 3:42 PM Age: 75 years old Clinical indication: Pain; Leg, lower; Left; Prior surgery; Surgery date: 6+ months; Additional info: Pain swelling TECHNIQUE: Imaging protocol: Real-time Duplex ultrasound of the Left Lower Extremity with 2-D li scale, color Doppler flow and spectral waveform analysis with image documentation. Limited exam focused on the left lower extremity veins. COMPARISON: US Renal Kidney Structu* [id number] 03/03/2016 3:40 PM FINDINGS: Left deep veins: Unremarkable. The common femoral, femoral, proximal profunda femoral and popliteal veins are patent without thrombus. Normal Doppler waveforms. Normal compressibility and/or augmentation response. Left superficial veins: Unremarkable. Saphenofemoral junction is patent without thrombus. Soft tissues: Unremarkable. US/CV venous duplex [facility] [id number] IMPRESSION: No evidence of deep vein thrombosis.
--- NOTE | 2020-12-05 15:42 | USR_ITS ---
PROCEDURE INFORMATION: Exam: US Duplex Left Lower Extremity Arteries Or Arterial Bypass Grafts Exam date and time: 12/05/2020 3:42 PM Age: 75 years old Clinical indication: Pain; Leg, lower; Left; Prior surgery; Surgery date: 6+ months; Additional info: Cynaosis, pain TECHNIQUE: Imaging protocol: Left Real-time duplex scan of the arteries or arterial bypass grafts of the left lower extremity with 2-D li scale, color Doppler flow and spectral waveform analysis. Images documented and saved. COMPARISON: US CV venous duplex [facility] [id number] 12/05/2020 4:14 PM FINDINGS: Left common femoral artery: No occlusion or significant stenosis. Normal waveform. Left superficial femoral artery: Normal peak systolic velocity and triphasic waveforms in the left external iliac, common femoral, and superficial femoral artery. Near complete occlusion of the popliteal artery with trace systolic flow. Left popliteal artery: No occlusion or significant stenosis. Normal waveform. Left calf/foot arteries: The left posterior tibial artery and dorsalis pedis artery have no visible flow, consistent with occlusion. US/CV arterial duplex [facility] [id number] IMPRESSION: 1. Near complete occlusion of the popliteal artery. 2. Complete occlusion of the left posterior tibial and dorsalis pedis arteries.
--- NOTE | 2020-12-05 17:03 | W.ED.EXTPRO ---
HPI - Extremity Problem General: Chief complaint: Extremity Problem,Nontraumatic Stated complaint: poss blood clot/LLE Time Seen by Provider: 12/05/20 15:28 History of Present Illness: HPI Narrative: 75-year-old female comes in complaining of left lower leg pain that began earlier today. Is cold to touch and painful she has a history of peripheral artery disease and has previous angioplasty on that leg. She denies any fever sweats chills nausea vomiting diarrhea no chest pain or shortness of breath MD Complaint: extremity pain and cold extremity Onset (ago): hour(s) Pain Consistency: constant Location: left Quality: burning and aching Radiation: distal Relieving factors: nothing Exacerbating factors: exertion Associated symptoms: Deny arthralgias, chest pain, fever(s), myalgias, rash or short of breath Review of Systems Const: Denies: fever(s) ENMT: Denies: throat pain, ear or mastoid pain, nasal discharge or nasal congestion Card: Denies: chest pain Resp: Denies: dyspnea, productive cough or non-productive cough GI: Denies: abdominal pain, nausea, vomiting, hematemesis, coffee ground emesis, diarrhea, constipation, bloating, hematochezia or melena : Denies: flank pain, difficulty voiding, dysuria, urinary frequency or urinary urgency Skin/Breast: Denies: rash PFSH ED PFSH: Medical History Acute on chronic systolic heart failure Alcoholism in recovery Atrial fibrillation Breast cancer Cardiomyopathy Carotid stenosis, bilateral CHF (congestive heart failure) CKD (chronic kidney disease) Claudication COPD (chronic obstructive pulmonary disease) CVA (cerebral vascular accident) DJD (degenerative joint disease), lumbar ICD (implantable cardioverter-defibrillator) in place Mitral regurgitation VALE on CPAP Peripheral vascular disease Presence of Watchman left atrial appendage closure device PUD (peptic ulcer disease) PVCs (premature ventricular contractions) Surgical History History of cardiac radiofrequency ablation History of resection of meningioma Previous back surgery S/P cataract extraction S/P lumpectomy of breast Family History Sister Cancer Social History Smoking and tobacco status: former smoker Alcohol intake: former Other details last alcohol use: recovering alcoholic Household members: spouse Marital status: Physical Exam Const: COMMON NORMALS: no acute distress GENERAL APPEARANCE: cooperative and comfortable ORIENTATION/CONSCIOUSNESS: Yes awake, Yes oriented to person, Yes oriented to place and Yes oriented to time HENMT: COMMON NORMALS: normocephalic, atraumatic, hearing grossly normal bilaterally and external ears normal HEAD & SCALP: normocephalic and atraumatic EXTERNAL EAR: Yes external ears normal Neck/C-Spine: COMMON NORMALS: no JVD Resp: COMMON NORMALS: normal respiratory effort, No retractions, No use of accessory muscles and clear to auscultation bilaterally AUSCULTATION: clear to auscultation bilaterally Cardio: COMMON NORMALS: no JVD, regular rate, regular rhythm and No murmurs present (Cardio) RATE: regular rate RHYTHM: regular rhythm GI: COMMON NORMALS: Soft to palpation and No hepatosplenomegaly present AUSCULTATION: Yes normoactive bowel sounds PALPATION: Yes Soft to palpation, No Tenderness to palpation present (GI), No Guarding due to palpation present (GI) and Yes No hepatosplenomegaly present Extremity: NARRATIVE EXTREMITY EXAM: Lower extremity cool to the touch femoral pulse palpable popliteal pulse difficult but I believe it is present no dorsalis pedis or posterior tibialis pulse Neuro: SENSORIUM/ORIENTATION: Yes oriented to person, Yes oriented to place and Yes oriented to time Skin: COMMON NORMALS: no rashes or lesions noted GENERAL SKIN EXAM: no rashes or lesions noted Course Vital Signs: Vital signs: Vital Signs Temperature 98.4 F 12/06/20 12:29 Pulse Rate 75 12/06/20 18:54 Respiratory Rate 19 H 12/06/20 18:54 Blood Pressure 119/65 12/06/20 18:54 Pulse Oximetry 88 L 12/06/20 18:54 MDM - Extremity (Nontraumatic) MDM Narrative: Medical decision making narrative: Arterial duplex shows no flow below the popliteal discussed Dr. Mendez started heparin he will see the patient Lab Data: Labs: Lab Results 12/05/20 12/05/20 12/05/20 Range/Units 17:27 17:27 17:27 WBC 5.9 (4.0-10.0) 10^3/ uL RBC 4.68 (4.1-5.3) 10^6/u L Hgb 15.3 (11.5-15.3) g/dL Hct 47.4 H (37.0-47.0) % MCV 101.3 H (81-99) fL MCH 32.7 (28.0-34.0) pg MCHC 32.3 (30.0-36.0) g/dL RDW 13.7 (12.1-15.1) % Plt Count 194 (130-400) 10^3/c mm MPV 10.5 H (7.4-10.4) fL Neut % (Auto) 75.7 % Lymph % (Auto) 14.0 % Mcduffie % (Auto) 8.7 % Eos % (Auto) 1.0 % Baso % (Auto) 0.3 % Neut # (Auto) 4.44 (1.8-7.7) 10^3/u L Lymph # (Auto) 0.8 (0.8-4.8) 10^3/u L Mcduffie # (Auto) 0.5 (0.2-0.9) 10^3/u L Eos # (Auto) 0.1 (0.0-0.8) 10^3/u L Baso # (Auto) 0.0 (0.0-0.1) 10^3/u L Nucleated RBC % (a uto) 0 % Nucleated RBCs # 0.0 /100WBC PT 14.00 (12.1-14.9) SECO NDS INR 1.05 (0.8-1.2) D-Dimer 2.73 H (0-0.59) ug/mIFE U Sodium 142 (136-145) mmol/L Potassium 4.4 (3.5-5.1) mmol/L Chloride 105 (98-107) mmol/L Carbon Dioxide 26 (22-29) mmol/L Anion Gap 15.4 (5-19) BUN 47 H (8-23) mg/dL Creatinine 1.5 H (0.5-0.9) mg/dL GFR Calculation Not Reportable Glucose 99 (65-115) mg/dL Calculated Osmolal ity 306 H (285-295) mOsm/k g Calcium 9.5 (8.5-10.5) mg/dL Total Bilirubin 0.5 (0.15-1.2) mg/dL AST 25 (0-32) U/L ALT 15 (0-33) U/L Alkaline Phosphata se 158 H (35-105) IU/L Total Protein 7.3 (6.6-8.7) g/dL Albumin 4.0 (3.5-5.2) g/dL Globulin 3.3 (1.3-4.6) g/dL Discharge Plan Discharge Patient Disposition: Admitted As Inpatient Admit Provider: Estrella Saucedo Condition: Stable Discharge Diet: Cardiac and Low Salt Discharge Activity: Increase activity as tolerated Coding Level of Care 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
[2020-12-05 17:36] LABS: Basophils % 0.3 %; Eosinophils # 0.1 10^3/uL (0.0-0.8); Hematocrit 47.4 % (37.0-47.0); Hemoglobin 15.3 g/dL (11.5-15.3); Lymphocytes # 0.8 10^3/uL (0.8-4.8); Mean Corpuscular HGB Conc 32.3 g/dL (30.0-36.0); Mean Corpuscular Hemoglobin 32.7 pg (28.0-34.0); Mean Corpuscular Volume 101.3 fL (81-99); Mean Platelet Volume 10.5 fL (7.4-10.4); Monocytes # 0.5 10^3/uL (0.2-0.9); Monocytes % 8.7 %; Neutrophils # 4.44 10^3/uL (1.8-7.7); Neutrophils % 75.7 %; Nucleated Red Blood Cells % 0 %; Platelet Count 194 10^3/cmm (130-400); Red Blood Count 4.68 10^6/uL (4.1-5.3); Red Cell Distribution Width 13.7 % (12.1-15.1); White Blood Count 5.9 10^3/uL (4.0-10.0)
[2020-12-05] MEDS: ondansetron 2 mg/ML SDV 2 mL 4 MG IVP (17:44)
[2020-12-05] MEDS: heparin 5,000 unit/mL INJ 1 mL 4000 UNIT IVP (17:44)
[2020-12-05] MEDS: morphine 4 mg/mL SDV 1 mL IVP (17:46)
--- NOTE | 2020-12-05 17:51 | P.HP_ITS ---
Providers/Chief Complaint Admitting Physician: Estrella Saucdeo MD Primary Care Provider: Janie Agustin MD Chief Complaint: poss blood clot/LLE History of Present Illness Teena Timmons is a 75 year old female past medical history significant for nonischemic cardiomyopathy, congestive heart failure, chronic kidney disease stage IV baseline creatinine 1.4-1.5, history of bleeding status post watchman device due to atrial fibrillation and inability to take anticoagulation, history of anemia history of transfusion and history of peripheral arterial disease status post balloon angioplasty of left lower extremity popliteal and tibioperoneal trunk presented with continuous excruciating pain in the left leg started from mid thigh going to the back of the leg which 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 She waited for couple of hour pain as she decided to go to her primary care physician and in the process to call her office to see her. According to her pain subsided for couple of hours and then came back with intensity 10 x 10 it is when then she decided to go to ER. In the ER she was given morphine aspirin which relieved her pain to 4 x 10. Rest ultrasound of the lower extremity was performed [facility] called me that she does not have any flow beyond popliteal there were not able to see anterior tibial but according to them posterior tibial and peroneal is occluded. I immediately saw the patient at the request of Dr. Cheung in the ER. Physical examination did not reveal any motor or neurological deficit. Temperature was slightly cold as compared to the right foot but not icy cold. Left foot has some purplish hue appearance in the toes. Upon movement she was complaining of pain whenever she tries to go to washroom she thinks that pain intensity goes up. We started patient on heparin. I have detailed discussion with the patient and family by bedside. She has been explained all risk benefit and alternative for the procedure. She has been explained the risk for major minor GI bleed, risk for amputation due to not able to revascularize or embolic phenomena, risk for urgent emergent bypass surgery, risk for major minor bleed requiring transfusion. She would like to proceed with it. She has accepted all the risks and benefits. We will therefore proceed with peripheral angiogram. Creatinine came back 1.5 which is at her baseline. I will IV hydrate her. She has been started on normal saline. I am planning to continue normal saline for next 12 hours. I will hold her diuretics. We will closely watch her for bleeding. Review of Systems All/Imm: Denies: acute wheezing Medications/Allergies Home Medications Medication Instructions Recorded Confirmed Last Taken Type ferrous sulfate 325 mg (65 mg 325 mg PO BID 06/28/19 12/05/20 12/05/20 History iron) tablet magnesium 250 mg tablet 250 mg PO DAILY 06/28/19 12/05/20 12/04/20 History vitamin B complex 1 tab PO Q2D 06/28/19 12/05/20 12/04/20 History allopurinol 100 mg tablet 100 mg PO DAILY 07/06/19 12/05/20 12/05/20 History sacubitril 24 mg-valsartan 26 mg 1 tab PO BID 07/06/19 12/05/20 12/05/20 History tablet acetaminophen 500 mg capsule 500 mg PO Q6H PRN 01/12/20 12/05/20 12/05/20 History gabapentin 100 mg capsule 300 mg PO TID cap 04/01/20 12/05/20 12/05/20 History metoprolol succinate 100 mg 100 mg PO DAILY 09/30/20 12/05/20 12/05/20 History tablet,extended release 24 hr bumetanide 2 mg PO BID 12/05/20 12/05/20 12/05/20 History Allergies Allergy/AdvReac Type Severity Reaction Status Date / Time latex Allergy hives Verified 11/04/20 10:13 [id number]-Mxw Reductase AdvReac Intermediate ADR-Muscle Verified 11/04/20 10: 13 Inhibitor Pain TPA Allergy Severe ALGY-Anaphy Uncoded 11/04/20 10:13 laxis PFSH Acute PFSH: Medical History Alcoholism in recovery Atrial fibrillation Breast cancer Cardiomyopathy Carotid stenosis, bilateral CHF (congestive heart failure) CKD (chronic kidney disease) Claudication COPD (chronic obstructive pulmonary disease) CVA (cerebral vascular accident) DJD (degenerative joint disease), lumbar ICD (implantable cardioverter-defibrillator) in place Mitral regurgitation VALE on CPAP Peripheral vascular disease Presence of Watchman left atrial appendage closure device PUD (peptic ulcer disease) PVCs (premature ventricular contractions) Surgical History History of cardiac radiofrequency ablation History of resection of meningioma Previous back surgery S/P cataract extraction S/P lumpectomy of breast Family History Sister Cancer Social History Smoking and tobacco status: former smoker Alcohol intake: former Other details last alcohol use: recovering alcoholic Household members: spouse Marital status: Vitals/I&O/Wt Last Vital Signs Temp 98.1 F 12/05/20 14:30 Pulse 70 12/05/20 17:29 Resp 19 H 12/05/20 17:29 BP 136/84 12/05/20 17:29 Pulse Ox 97 12/05/20 17:29 Weight last 48 hrs Weight 205 lb Physical Exam 2 Narrative: EXAM NARRATIVE: GENERAL: Patient is alert, awake and oriented x3. NECK: No jugular vein distension. HEENT: No cyanosis. No icterus. No pallor. HEART: Regular S1 and S2. No murmur, rub or gallop. LUNGS: Clear to auscultate bilaterally. ABDOMEN: Soft, nontender and nondistended. Positive bowel sounds. No guarding, rebound or tenderness. CENTRAL NERVOUS SYSTEM: Grossly nonfocal. EXTREMITIES: Lower extremities without edema bilaterally. Pulses not palpable in both feet, left foot slightly cold, sensory and motor intact, left toe with purplish hue. Data : 12/05/20 17:27 12/05/20 17:27 A&P Assessment and plan (1) Critical limb ischemia with history of revascularization of same extremity: Patient has acute critical limb ischemia requiring early invasive strategy for limb salvage. We will proceed with peripheral angiogram and percutaneous intervention indicated. Status: Acute (2) Cardiomyopathy: Appear to be stable from a cardiomyopathy perspective continue current regimen. Hold diuretics Status: Acute Qualifiers: Cardiomyopathy type: dilated Qualified Code(s): I42.0 - Dilated cardiomyopathy (3) CKD (chronic kidney disease): Hold diuretics, patient is aware of contrast-induced nephropathy leading to transient or permanent dialysis she would like to proceed with it. I will continue IV fluid. Status: Acute Qualifiers: Chronic kidney disease stage: stage 3 (moderate) Chronic kidney disease stage 3 subtype: stage 3b (GFR 30-44) Qualified Code(s): N18.32 - Chronic kidney disease, stage 3b (4) Atrial fibrillation: Rate controlled. Status post watchman device due to inability to take anticoagulation Status: Acute Qualifiers: Atrial fibrillation type: persistent (not longstanding) Qualified Code(s): I48.19 - Other persistent atrial fibrillation (5) ICD (implantable cardioverter-defibrillator) in place: No history of firing of ICD. Status: Acute Attestations Medical Necessity Statement*: She will be outpatient in bed. 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
[2020-12-05 17:53] LABS: Alanine Aminotransferase 15 U/L (0-33); Alkaline Phosphatase 158 IU/L (35-105); Anion Gap 15.4 (5-19); Aspartate Amino Transferase 25 U/L (0-32); Blood Urea Nitrogen 47 mg/dL (8-23); Calcium 9.5 mg/dL (8.5-10.5); Carbon Dioxide 26 mmol/L (22-29); Chloride 105 mmol/L (98-107); Globulin 3.3 g/dL (1.3-4.6); Glucose 99 mg/dL (65-115); Osmolality Calculated 306 mOsm/kg (285-295); Potassium 4.4 mmol/L (3.5-5.1); Sodium 142 mmol/L (136-145); Total Bilirubin 0.5 mg/dL (0.15-1.2); Total Protein 7.3 g/dL (6.6-8.7)
[2020-12-05 18:10] LABS: INR 1.05 (0.8-1.2)
[2020-12-05 18:13] LABS: D Dimer 2.73 ug/mIFEU (0-0.59)
--- NOTE | 2020-12-05 18:17 | XACV_ITS ---
Wt: 93 kg BSA: 2.12 m2 Any Known Allergies: Other Gender: Female : 1945 Exam Type: Invasive Peripheral Vascular Procedure(s): Procedure Description: Peripheral Cath Diagnostic Procedure Exam Priority: Routine Lower Extremity Interventional Findings Using a right common femoral approach we were able to cross after somewhat difficulty beyond mid left popliteal vessel into peroneal vessel. Balloon angioplasty of the left popliteal vessel was performed followed by balloon angioplasty of tibioperoneal trunk. After that it was noted that patient has subtotally occluded highly calcified distal popliteal disease with subtotally occluded highly calcified ostial anterior tibial, highly calcified subtotally occluded tibioperoneal trunk and chronically occluded proximal posterior tibial vessel with thrombus noted in the left anterior tibial. Initially we tried cat 6 penumbra using multiple runs however were not able to open up the vessels. We then adopted and upgraded the sheath with destination sheath 8 [place]. Cat 8 penumbra was used, multiple runs were performed since we saw thrombus in the popliteal vessel as well. After then we noted that somewhat thrombus was cleared. We crossed into left anterior tibial vessel and performed multiple balloon angioplasties however vessel continue to collapse at the Distal Popliteal, Tibioperoneal Trunk and at the junction of ostial anterior tibial. Despite of using compliant noncompliant balloon were not able to open up the vessels since patient has limb threatening ischemia but did not have any other option but to salvage it with coronary stent which was placed in overlapping fashion from mid popliteal into left anterior tibial artery. Excellent angiographic result with single vessel was confirmed initially. It was also noted that on digital subtraction posterior tibial and peroneal vessels were highlighted. Left foot and leg immediately started warming with good color. Dopplerable anterior posterior tibial pulses were noted. For equipment used please see inventory.. Conclusions Indication for peripheral angiogram: Acute limb threatening ischemia: Limb salvage procedure.Peripheral angiogram of the left side: Left common iliac, left external and internal iliac, left common femoral, left SFA and profundofemoral did not show any significant stenosis.Left popliteal artery severely diseased which showed some collaterals towards posterior tibial vessel however no vessels visualized below mid popliteal artery on the left side.. null was treated with Balloon. null was treated with Balloon. null was treated with three Balloon and Bare Metal Stent. null was treated with Bare Metal Stent. null was treated with Balloon. Recommendations 1-Return to inpatient for close monitoring and routine cath care2-Risk factor modification for secondary prevention3-Statin and aspirin 81 mg life--long, if tolerated4-Continue Plavix 75mg p.o. daily for at least one year. We will assess at the end of one year again to continue if further or not5-Continue optimal medical management6-Follow up with Dr. Saucedo in four weeks and your primary care in 10 days. Hemodynamic Data Phase:Rest AO : 128.0 / 82.0 ( 98.0 ) @ 6:22:00 PM 139.0 / 81.0 ( 104.0 ) @ 6:37:00 PM Access Site Site: Right Femoral artery Sheath Size: 6 Fr Hemost... Method: Suture Hemost... Success: Successful Procedure Details Findings Procedure Consent Obtained. Pre-Procedure Time Out. Identified patient by full name and date of as verbalized by the patient/guarantor. Does the consent match the physician's order: Yes. Accurate & Complete Informed Consent: Yes. Inpatient/Outpatient History & Physical on Chart: Yes. If H&P is completed, is and addenduem needed: No; If yes, is the addendum complete: N/A. Visualize and Verify Site with Patient/Guarantor: N/A. Relevant Radiology Images available: N/A. Pre-op teaching completed and patient verbalized understanding. The risks, benefits, and alternatives of sedation and/or procedure were discussed by physician. The patient agrees to continue. Procedure started. Correct patient, site and procedure confirmed by cath team. PERRLA. Strong, equal hand paint roller assembler bilaterally. Lungs clear x 5 lobes. Oxygen started at 2liters/min via nasal canula. IV Site on Arrival: 20 gauge in the right anticubital. IV Fluids: 0.9% NaCl at KVO. 0 mL infused prior to sleep lab technologist. Pre Procedural Pulses: right dorsalis pedis was 1+. Pre Procedural Pulses: left dorsalis pedis was Absent. Pre Procedural Pulses: right posterior tibial was 1+. Pre Procedural Pulses: left posterior tibial was Absent. bilateral groins was prepped with chloroprep then draped in the usual sterile fashion. Physician notified. Physician arrived. Equipment: Peripheral. Cardiac Cath Pack. ACIST Manifold Kit Model BT 2000. Heparinized Saline (2 units/mL), 1000 mL bag. Inventory is JJ 6F 11cm Flora Plus Sheath. Baseline sample Acquired. HR: 70 BPM. Physician scrubbed in. Time out performed with cath team. Lidocaine 1% infiltrated to the right groin. Arterial access obtained with micropuncture set. A JJ 5F RIM 65 cm Diagnostic Catheter was advanced over the glidewire and used for Lower extremity arteriography. Glidewire advanced into left SFA. Catheter removed over the glide wire. Short 6 fr sheath exchanged for long 45 cm 6 fr Flexor sheath. Left leg runoff through sheath 10 ml for total of 30 ml. SEEKER support catheter inserted over glidewire. Glidewire advanced into peroneal. Seeker parked into peroneal. Glidewire out. Command wire inserted. Hand injection through seeker. ACT drawn. Results 151 seconds. Therapeutic limits - pre-heparin administration 90-150 seconds and monitoring heparin during a vascular procedure >250 seconds. Inflation number : 1 A AB ARMADA 14 OTW [id number] was prepped and advanced across the Tibial Peroneal Trunk, Left , then inflated to 10 LAVONNE for 1:10 seconds. Inflation number: 2 The AB ARMADA 14 OTW [id number] was reinflated across the Tibial Peroneal Trunk, Left, to 8 LAVONNE for 1:04 seconds. Inflation number: 1 The AB ARMADA 14 OTW [id number] was reinflated across the Popliteal, Left, to 16 LAVONNE for 1:09 seconds. Inflation number: 2 The AB ARMADA 14 OTW [id number] was reinflated across the Popliteal, Left, to 18 LAVONNE for 1:02 seconds. Balloon out over wire. Seeker catheter inserted over command wire. Seeker parked in popliteal. Command wire out. Hand injection. Command wire inserted. Hand injection. Command wire out. 300 cm Runthrough wire inserted. Hand injection. Seeker out. Inflation number : 1 A AB ARMADA 14 OTW [id number] was prepped and advanced across the Anterior Tibial, Left , then inflated to 4 LAVONNE for 0:33 seconds. Inflation number: 2 The [facility] 14 OTW [id number] was reinflated across the Anterior Tibial, Left, to 4 LAVONNE for 0:48 seconds. Inflation number: 3 The [facility] 14 OTW [id number] was reinflated across the Anterior Tibial, Left, to 8 LAVONNE for 1:07 seconds. Inflation number: 4 The [facility] 14 OTW [id number] was reinflated across the Anterior Tibial, Left, to 12 LAVONNE for 1:05 seconds. Balloon out. Seeker catheter inserted over the wire. Seeker parked in AT. Wire out. Hand injection. Runthrough wire inserted. Wire parked in AT. Seeker out over wire. Inflation number: 5 The [facility] 14 OTW [id number] was reinflated across the Anterior Tibial, Left, to 4 LAVONNE for 2:10 seconds. Inflation number: 6 The [facility] 14 OTW [id number] was reinflated across the Anterior Tibial, Left, to 6 LAVONNE for 2:03 seconds. Inflation number: 7 The [facility] 14 OTW [id number] was reinflated across the Anterior Tibial, Left, to 12 LAVONNE for 1:04 seconds. Balloon out over runthrough wire. Seeker inserted over runthrough wire. Runthrough wire out. Hand injection. Hand injection. Runthrough wire inserted into AT. Seeker out. Inflation number : 8 A MDT NC EUPHORA RX [id number] BALLOON was prepped and advanced across the Anterior Tibial, Left , then inflated to 12 LAVONNE for 2:03 seconds. Inflation number: 9 The MDT NC EUPHORA RX [id number] BALLOON was reinflated across the Anterior Tibial, Left, to 12 LAVONNE for 1:07 seconds. Balloon out. Seeker catheter inserted over the wire. Wire out. Hand injection. Atul Alvarez FARM ADVISER was relieved by Radha Wilder RT as monitoring person. updated. runthrough wire advanced. seeker out. Side port of sheath attached to Normal Saline flush at KVO to maintain patency. Inflation Number : 1 A MDT INTEGRITY [id number] BMS RX -Lot Number# [id number] exp date: 04-12-2021 was prepped and advanced across the Ostial Anterior Tibial, Left. The stent was deployed at 8 LAVONNE for 0:25 seconds. Inflation number: 2 The stent balloon was then re-inflated across the Ostial Anterior Tibial, Left to 12 LAVONNE for 0:33 seconds. Inflation number: 3 The stent balloon was then re-inflated across the Ostial Anterior Tibial, Left to 14 LAVONNE for 0:10 seconds. Stent balloon out over wire. ACT drawn. Results 182 seconds. Therapeutic limits - pre-heparin administration 90-150 seconds and monitoring heparin during a vascular procedure >250 seconds. Seeker catheter inserted over the wire. wire out. seeker out. Left leg runoff performed 10mL/sec for a total of 30mL. Inflation number : 1 A AB ARMADA 35 OTW [id number] was prepped and advanced across the Distal Superficial Femoral, Left , then inflated to 4 LAVONNE for 1:24 seconds. Inflation number: 2 The AB ARMADA 35 OTW [id number] was reinflated across the Distal Superficial Femoral, Left, to 4 LAVONNE for 1:29 seconds. Balloon out. handinjection performed. Seeker catheter inserted over the wire. seeker out. Inflation number : 10 A AB ARMADA 35 OTW [id number] was prepped and advanced across the Anterior Tibial, Left , then inflated to 3 LAVONNE for 1:13 seconds. Inflation number: 11 The AB ARMADA 35 OTW [id number] was reinflated across the Anterior Tibial, Left, to 8 LAVONNE for 2:00 seconds. Balloon out. left leg runoff performed 10mL/sec for a total of 30mL. Side port of sheath attached to Normal Saline flush at KVO to maintain patency. seeker catheter inserted over the wire. glidewire out. seeker parked in the anterial tibial. handinjection performed. command wire inserted. seeker out. wire in anterior tibial region. 6Fr 140cm CAT RX asperation Catheter inserted. aspirating now. house sup updated . aspiration catheter out. runoff performed 10mL/sec for a total of 30mL. command wire inserted through the sheath. wire parked in the anterior tibial. 6Fr 140cm CAT RX asperation Catheter inserted. Left leg runoff 10mL/sec for a total of 30mL. aspiration catheter out. seeker catheter inserted over wire. command wire out. glidewire inserted. seeker catheter out over glidewire. repreping right groin due to patient touching area. Sheath upsized to a 8 Fr. ACT drawn. Results 236 seconds. Therapeutic limits - pre-heparin administration 90-150 seconds and monitoring heparin during a vascular procedure >250 seconds. CAT8 aspiration catheter inserted into the anterior tibial. aspiration catheter out. Inflation number: 12 The AB ARMADA 35 OTW [id number] was reinflated across the Anterior Tibial, Left, to 8 LAVONNE for 2:00 seconds. Balloon out. Left anterior tibial selected and arteriogram with runoff performed @ 10 mL/sec for a total of 30 mL. seeker catheter inserted. wire out. seeker out. Inflation Number : 13 A MDT INTEGRITY 4.32l40SH BMS RX -Lot Number# [id number] exp date:01-26-2021 was prepped and advanced across the Anterior Tibial, Left. The stent was deployed at 12 LAVONNE for 0:35 seconds. Inflation number: 14 The stent balloon was then re-inflated across the Anterior Tibial, Left to 14 LAVONNE for 0:05 seconds. Stent balloon out over wire. left leg runoff performed 10mL/sec for a total of 30mL. wire out. exchanging long 8F sheath for short 8F sheath. Sheath(s) sutured into position with 2-0 silk and sterile 4x4's and Op-site applied over the site. No oozing or signs and symptoms of hematoma noted. Post Procedure: Pulses reassessed and unchanged. PERRLA. Strong, equal hand paint roller assembler bilaterally. No VTE prophylaxis required. Medication's Wasted: Other = fentanyl 50 mg. Medication's Wasted: Nitro = 48 mg. Total IV fluids: 325 mL. Contrast type used: Visipaque 320 mgI/mL, 500 mL bottle. Contrast Material : Visipaque 350 ml. Complications: none. Estimated blood loss: 5mL-10mL. Post-op diagnosis: thrombectomy/ASSISTANT PURCHASING MANAGER/stents to dist TP and ost AT. Procedure completed. Patient transferred by bed to 1st floor. A Suture was successful obtaining hemostatsis at the Right Femoral artery insertion site. Vital chart was stopped. Procedure Medications Start: 7:06 PM Stop: 7:06 PM Medication: Versed Amount: 2 mg Route: I.V. Start: 7:14 PM Stop: 7:14 PM Medication: Fentanyl Amount: 25 mcg Route: I.V. Start: 7:20 PM Stop: 7:20 PM Medication: Versed Amount: 1 mg Route: I.V. Start: 7:33 PM Stop: 7:33 PM Medication: Heparin Amount: 6000 units Route: I.V. Start: 7:38 PM Stop: 7:38 PM Medication: Versed Amount: 0.5 mg Route: I.V. Start: 7:43 PM Stop: 7:43 PM Medication: Versed Amount: 0.5 mg Route: I.V. Start: 8:00 PM Stop: 8:00 PM Medication: Fentanyl Amount: 25 mcg Route: I.V. Start: 8:01 PM Stop: 8:01 PM Medication: Versed Amount: 1 mg Route: I.V. Start: 8:17 PM Stop: 8:17 PM Medication: Nitrogylcerin Amount: 400 mcg Route: I.A. Start: 8:21 PM Stop: 8:21 PM Medication: Fentanyl Amount: 25 mcg Route: I.V. Start: 8:29 PM Stop: 8:29 PM Medication: Fentanyl Amount: 25 mcg Route: I.V. Start: 8:32 PM Stop: 8:32 PM Medication: Nitrogylcerin Amount: 400 mcg Route: I.A. Start: 8:56 PM Stop: 8:56 PM Medication: Nitrogylcerin Amount: 400 mcg Route: I.A. Start: 8:57 PM Stop: 8:57 PM Medication: Aggrastat 12.5 mg/250 mL Amount: 47 ml Route: I.V. bolus Start: 8:59 PM Stop: 8:59 PM Medication: Heparin Amount: 4000 units Route: I.V. Start: 9:06 PM Stop: 9:06 PM Medication: Fentanyl Amount: 25 mcg Route: I.V. Start: 8:57 PM Stop: 8:57 PM Medication: Aggrastat 12.5 mg/250 mL Amount: 16.9 ml/hr Route: I.V. drip Start: 9:22 PM Stop: 9:22 PM Medication: Nitrogylcerin Amount: 400 mcg Route: I.A. Start: 9:28 PM Stop: 9:28 PM Medication: Fentanyl Amount: 25 mcg Route: I.V. Start: 9:36 PM Stop: 9:36 PM Medication: Versed Amount: 1 mg Route: I.V. Start: 9:20 PM Stop: 9:20 PM Medication: Versed Amount: 1 mg Route: I.V. Start: 9:57 PM Stop: 9:57 PM Medication: Fentanyl Amount: 25 mcg Route: I.V. Start: 9:59 PM Stop: 9:59 PM Medication: Versed Amount: 1 mg Route: I.V. Start: 10:11 PM Stop: 10:11 PM Medication: Versed Amount: 1 mg Route: I.V. Start: 10:13 PM Stop: 10:13 PM Medication: Fentanyl Amount: 25 mcg Route: I.V. Start: 10:24 PM Stop: 10:24 PM Medication: Fentanyl Amount: 50 mcg Route: I.V. Start: 10:26 PM Stop: 10:26 PM Medication: Nitrogylcerin Amount: 400 mcg Route: I.A. Start: 10:00 PM Stop: 10:00 PM Medication: Fentanyl Amount: 25 mcg Route: I.V. I, the attending physician, have reviewed and verified all procedure medications. Yes, all medications given per verbal order Report Signatures Finalized by Estrella Saucedo MD on 12/21/2020 05:50 PM
--- NOTE | 2020-12-05 19:02 | W.PM.OPSUD ---
Surgery/Procedure H&P Update DATE OF PROCEDURE: December 05, 2020 DATE H&P PERFORMED: 12/05/20 H&P UPDATE INFORMATION: I have reviewed H&P completed within last 30 days, I have examined patient prior to procedure, No changes to prior documentation and H&P to be scanned into chart PREOP DIAGNOSIS: Critical limb ischemia PATIENT REASSESSED PRIOR TO SEDATION, WITH NO CHANGE NOTED: Yes PHYSICAL EXAM: oriented x 3, clear to auscultation bilaterally and regular rate & rhythm AIRWAY EVAL/ANESTHESIA PLAN: ASA II, Risks, benefits & alternatives of sedation and/or procedure discussed and Patient agrees to continue as planned
[2020-12-05] MEDS: sodium chloride 0.9% 1,000 ML 100 ML IV (23:50)
[2020-12-06] VITALS (67 sets, daily range): BP systolic 86–126; BP diastolic 37–73; PULSE 69–79; RESP 10–32; TEMP 36.7–36.9; O2SAT 86–99
[2020-12-06] MEDS: pantoprazole 40 mg SDV IVP (00:07)
[2020-12-06] MEDS: alum-mag-hydroxide-sime 30 mL UDC PO (00:40)
[2020-12-06 02:06] LABS: Partial Thromboplastin Time 193.9 SECONDS (23.9-36.7)
[2020-12-06] MEDS: morphine 4 mg/mL SDV 1 mL 2 MG IVP ×2 (05:17→07:23)
[2020-12-06 05:27] LABS: Basophils % 0.4 %; Eosinophils % 0.7 %; Hematocrit 38.9 % (37.0-47.0); Hemoglobin 12.1 g/dL (11.5-15.3); Lymphocytes # 0.6 10^3/uL (0.8-4.8); Lymphocytes % 10.1 %; Mean Corpuscular HGB Conc 31.1 g/dL (30.0-36.0); Mean Corpuscular Hemoglobin 32.4 pg (28.0-34.0); Mean Platelet Volume 10.6 fL (7.4-10.4); Monocytes # 0.5 10^3/uL (0.2-0.9); Monocytes % 9.4 %; Neutrophils # 4.48 10^3/uL (1.8-7.7); Neutrophils % 79.2 %; Nucleated Red Blood Cells % 0 %; Platelet Count 179 10^3/cmm (130-400); Red Blood Count 3.74 10^6/uL (4.1-5.3); Red Cell Distribution Width 13.8 % (12.1-15.1); White Blood Count 5.7 10^3/uL (4.0-10.0)
[2020-12-06 05:37] LABS: Partial Thromboplastin Time 33.6 SECONDS (23.9-36.7)
[2020-12-06 05:43] LABS: Anion Gap 13.5 (5-19); Blood Urea Nitrogen 42 mg/dL (8-23); Calcium 8.6 mg/dL (8.5-10.5); Carbon Dioxide 25 mmol/L (22-29); Chloride 106 mmol/L (98-107); Glucose 97 mg/dL (65-115); Osmolality Calculated 300 mOsm/kg (285-295); Potassium 4.5 mmol/L (3.5-5.1); Sodium 140 mmol/L (136-145)
[2020-12-06] MEDS: gabapentin 300 mg Capsule PO ×2 (10:27→17:54)
[2020-12-06] MEDS: sacubitril/valsartan 24-26 mg Tablet 1 EACH PO (10:28)
[2020-12-06] MEDS: allopurinol 100 mg Tablet PO (10:28)
[2020-12-06] MEDS: metoprolol succinate ER (24 HR) 100 mg Tablet PO (10:28)
[2020-12-06] MEDS: clopidogrel 75 mg Tablet PO (10:29)
[2020-12-06] MEDS: ferrous sulfate EC 325 mg Tablet PO ×2 (10:29→17:54)
[2020-12-06 17:17] LABS: Basophils % 0.3 %; Eosinophils % 0.5 %; Hematocrit 37.5 % (37.0-47.0); Hemoglobin 11.4 g/dL (11.5-15.3); Lymphocytes # 0.6 10^3/uL (0.8-4.8); Lymphocytes % 9.3 %; Mean Corpuscular HGB Conc 30.4 g/dL (30.0-36.0); Mean Corpuscular Hemoglobin 32.7 pg (28.0-34.0); Mean Corpuscular Volume 107.4 fL (81-99); Mean Platelet Volume 10.8 fL (7.4-10.4); Monocytes # 0.7 10^3/uL (0.2-0.9); Neutrophils # 5.14 10^3/uL (1.8-7.7); Neutrophils % 78.7 %; Nucleated Red Blood Cells % 0 %; Platelet Count 169 10^3/cmm (130-400); Red Blood Count 3.49 10^6/uL (4.1-5.3); Red Cell Distribution Width 14.1 % (12.1-15.1); White Blood Count 6.5 10^3/uL (4.0-10.0)
--- NOTE | 2020-12-06 17:30 | PM.PN ---
Subjective Subjective: Interval history: S/p balloon angioplasty, thrombectomy and nondrug-eluting stent placement in distal tibioperoneal trunk and ostial left anterior tibial vessel for acute limb threatening ischemia for limb salvage. Vitals/I&O/Wt Last Vital Signs Temp 98.4 F 12/06/20 12:29 Pulse 75 12/06/20 15:13 Resp 19 H 12/06/20 15:13 BP 119/65 12/06/20 15:13 Pulse Ox 88 L 12/06/20 15:13 12/06/20 12/06/20 12/06/20 06:59 14:59 22:59 Intake Total 100 / 100 1235 / 1235 Output Total 350 / 350 Balance -250 / -250 1235 / 1235 Weight last 48 hrs Weight 205 lb Physical Exam Narrative: EXAM NARRATIVE: GENERAL: Patient is alert, awake and oriented x3. NECK: No jugular vein distension. HEENT: No cyanosis. No icterus. No pallor. HEART: Regular S1 and S2. No murmur, rub or gallop. LUNGS: Clear to auscultate bilaterally. ABDOMEN: Soft, nontender and nondistended. Positive bowel sounds. No guarding, rebound or tenderness. CENTRAL NERVOUS SYSTEM: Grossly nonfocal. EXTREMITIES: Lower extremities without edema bilaterally. Pulses not palpable in both feet, left foot palpable anterior tibial dopplerable posterior tibial pulse Resp: COMMON NORMALS: clear to auscultation bilaterally AUSCULTATION: clear to auscultation bilaterally Data : 12/06/20 16:22 12/06/20 05:15 A&P Assessment and plan (1) Critical limb ischemia with history of revascularization of same extremity: Patient underwent urgent peripheral angiogram balloon angioplasty thrombectomy and [id number] bare-metal stent placement in the tibioperoneal trunk and left anterior tibial artery for acute limb salvage. Patient was noted to have thrombotically occluded total occlusion of the distal popliteal and tibioperoneal trunk. No flow was noted upon angiogram. It was treated with multiple attempt of thrombectomy balloon angioplasty and stent placement since the vessel keep on collapsing getting occluded with thrombus generation due to ruptured plaque. Patient was loaded with Plavix. Continue Plavix for at least 1 month due to nondrug-coated stent placement. She has history of GI bleed in the past. IV fluid was given to flush of the kidneys. Continue Protonix. On today's visit she is doing much better she has good palpable anterior tibial and dopplerable posterior tibial pulse. Left foot and leg warm. She has somewhat pain in the left thigh. She has no bruising or hematoma in the right groin. Status: Acute (2) Cardiomyopathy: I will resume diuretics and rest of the medicine Status: Acute Qualifiers: Cardiomyopathy type: dilated Qualified Code(s): I42.0 - Dilated cardiomyopathy (3) CKD (chronic kidney disease): Creatinine improved to 1.6 after IV fluid. Will resume diuretics Status: Acute Qualifiers: Chronic kidney disease stage: stage 3 (moderate) Chronic kidney disease stage 3 subtype: stage 3b (GFR 30-44) Qualified Code(s): N18.32 - Chronic kidney disease, stage 3b (4) Atrial fibrillation: Rate controlled. Status post watchman device due to inability to take anticoagulation Status: Acute Qualifiers: Atrial fibrillation type: persistent (not longstanding) Qualified Code(s): I48.19 - Other persistent atrial fibrillation (5) ICD (implantable cardioverter-defibrillator) in place: No history of firing of ICD. Status: Acute Attestations Medical Necessity Statement*: Patient may will be discharged home today. Coding Level of Care Code Established Pt Acute Human Resources Benefits Assistant for Maday Shi Patient Type Established History Detailed Exam Detailed Medical Decision Making Moderate Complexity Diagnoses Critical limb ischemia with history of revascularization of same extremity I70.229; Z98.890 Cardiomyopathy I42.0 Cardiomyopathy type: dilated CKD (chronic kidney disease) N18.32 Chronic kidney disease stage: stage 3 (moderate) Chronic kidney disease stage 3 subtype: stage 3b (GFR 30-44) Atrial fibrillation I48.19 Atrial fibrillation type: persistent (not longstanding) ICD (implantable cardioverter-defibrillator) in place Z95.810
--- NOTE | 2020-12-06 17:56 | PC.NURSE ---
morphine 2 mg given this morning prior to sheath pull..as ordered.computer will not allow me to reassess the dose.the mso4 allowed pt to tolerate sheath pull well.also..protonix due at 0900 was given after scanning.it shows as nonscanned,non-given..and computer will not allow me to chart it.
--- NOTE | 2020-12-06 19:31 | PC.NURSE ---
right femoral arterial sheath pulled at 0730.manual pressure held x 20 min.vss through-out procedure.right after pressure released..pt began to bleed again.manual pressure again applied for 20 min.no hematoma noted.site dressed wih 2x2 gauze and secured with biocclusive drsg.instructed in activity restrictions s/p arterial sheath pull and instructed to notify staff for any bleeding,pain,sob..or for any concerns at all.pt verb understanding of instructions
--- NOTE | 2020-12-06 19:50 | PC.NURSE ---
DISCHARGE INSTRUCTIONS GIVEN AND EXPLAINED.PT AND SPOUSE VERB UNDERSTANDING OF INSTRUCTIONS.DISCHARGED VIA W/C TO EXIT AT 1930.SPOUSE TO DRIVE PT HOME.
--- NOTE | 2020-12-09 18:45 | PC.RESP ---
PULMONARY REHAB INFORMATION SENT TO PATIENT.
== END 2020-12-06 19:30 | disposition home or self-care (01) ==
LOC: ER 15:40 → CCL 18:21 → CSU 23:46
PROVIDERS: Admitting Provider Internal Medicine Cardiovascular Disease; Emergency Provider Family Medicine; PCP Internal Medicine; Visit Provider Internal Medicine Cardiovascular Disease
DX: I70.222 Atherosclerosis of native arteries of extremities with rest pain, left leg (principal); M79.662 Pain in left lower leg; Z98.890 Other specified postprocedural states; N18.32 Chronic kidney disease, stage 3b; I48.19 Other persistent atrial fibrillation; Z95.810 Presence of automatic (implantable) cardiac defibrillator; I42.0 Dilated cardiomyopathy; I48.91 Unspecified atrial fibrillation; Z85.3 Personal history of malignant neoplasm of breast; J44.9 Chronic obstructive pulmonary disease, unspecified; M19.90 Unspecified osteoarthritis, unspecified site; G47.33 Obstructive sleep apnea (adult) (pediatric); Z87.11 Personal history of peptic ulcer disease; Z87.891 Personal history of nicotine dependence
CPT/HCPCS: 36415; 37186; 37230; 75710; 80048; 80053; 85025; 85347; 85378; 85610; 85730; 93926; 93971; 96361; 96365; 96366; 96375; 99285; C1725; C1769; C1876; C1887; C1894; C9113; G0378; J1644; J2250; J2270; J2405; J3010; J3246; J3490; J7030; Q9967

== ENCOUNTER 2020-12-07 19:34 | Inpatient (IN) | payer MEDICARE, OTHER, SELFPAY ==
[2020-12-07 20:00] VITALS: BP 107/70; PULSE 70; RESP 18; TEMP 36.9; O2SAT 97; BMI 33.7
--- NOTE | 2020-12-07 20:55 | XRR_ITS ---
PROCEDURE INFORMATION: Exam: XR Chest Exam date and time: 12/07/2020 8:55 PM Age: 75 years old Clinical indication: Dyspnea; Prior surgery; Surgery date: 6+ months; Surgery type: Pacemaker; Additional info: Anuria, SOB HX chf TECHNIQUE: Imaging protocol: XR of the chest. Views: 1 view. COMPARISON: CR XR chest 2V* [id number] 07/31/2019 12:48 PM FINDINGS: Tubes, catheters and devices: There is a three-lead cardiac pacer via left subclavian approach. Findings are stable. Lungs: Development of fullness in the pulmonary vasculature suggesting volume overload in the lungs. Pleural spaces: Bilateral apical pleural thickening. No pleural effusion. No pneumothorax. Heart/Mediastinum: Stable marked enlargement of the cardiac silhouette. Mediastinal contours are unremarkable. Vasculature: Stable vascular calcifications in the aorta. Bones/joints: Bones are diffusely osteopenic. Degenerative changes in the spine and shoulders. XR/XR chest 1V portable [id number] IMPRESSION: 1. Development of fullness in the pulmonary vasculature suggesting volume overload in the lungs. 2. Incidental/nonacute findings are listed in the report.
--- NOTE | 2020-12-07 20:56 | ECG_ITS ---
[facility] Test Date: 2020-12-07 Pat Name: Teena Timmons Department: Room: Gender: Female Family Law Specialist: : 1945 Requested By: Rosendo Kennedy Order Number: [id number] Zoe MD: Christiano Max M.D. Measurements Intervals [place] Rate: 70 P: -54 MD: 176 QRS: -87 QRSD: 188 T: 91 QT: 522 QTc: 564 Interpretive Statements ELECTRONIC ATRIAL PACEMAKER ELECTRONIC VENTRICULAR PACEMAKER ABNORMAL RHYTHM ECG Compared to ECG 08/01/2018 15:15:12 No significant changes Electronically Signed On 12-08-2020 20:03:17 CDT by Christiano Max M.D. [email or web address]
--- NOTE | 2020-12-07 20:58 | ED_ITS ---
HPI - Female Genitourinary General: Chief complaint: Urogenital-Female Stated complaint: Kidney Pain\Cant Pee Time Seen by Provider: 12/07/20 20:42 History of Present Illness: HPI Narrative: 75-year-old female with chronic kidney disease. She had an angioplasty with stent placement to the lower extremity peripheral artery 2 days ago. She was released yesterday she says that she urinated a small amount 2 hours ago. Prior to that it was 1030 last night when she urinated MD elicited complaint: difficulty urinating and other Pertinent past history: other Onset (ago): hour(s) Severity: moderate Consistency: other Urinary symptoms: Difficulty Urinating Exacerbating factors: none Relieving factors: none Associated symptoms: Reports other; Deny short of breath, fevers/chills, headache(s), nausea or rash Review of Systems Const: Denies: fever(s) or chills Eyes: Denies: change in vision Card: Denies: chest pain or palpitations Resp: Denies: dyspnea or productive cough GI: Denies: nausea or vomiting : Reports: difficulty voiding and oliguria; Denies: flank pain or dysuria Skin/Breast: Denies: rash Neuro: Denies: headache(s), dizziness or confusion PFSH ED PFSH: Medical History Alcoholism in recovery Atrial fibrillation Breast cancer Cardiomyopathy Carotid stenosis, bilateral CHF (congestive heart failure) CKD (chronic kidney disease) Claudication COPD (chronic obstructive pulmonary disease) CVA (cerebral vascular accident) DJD (degenerative joint disease), lumbar ICD (implantable cardioverter-defibrillator) in place Mitral regurgitation VALE on CPAP Peripheral vascular disease Presence of Watchman left atrial appendage closure device PUD (peptic ulcer disease) PVCs (premature ventricular contractions) Surgical History History of cardiac radiofrequency ablation History of resection of meningioma Previous back surgery S/P cataract extraction S/P lumpectomy of breast Family History Sister Cancer Social History Smoking and tobacco status: former smoker Alcohol intake: former Other details last alcohol use: recovering alcoholic Household members: spouse Marital status: Physical Exam Const: COMMON NORMALS: no acute distress, patient oriented x3 and alert GENERAL APPEARANCE: cooperative Eye: COMMON NORMALS: Equal, round and reactive pupils present, EOMs intact bilaterally and conjunctivae normal CONJUNCTIVA: Yes conjunctivae normal PUPIL: Yes Equal, round and reactive pupils present Chest: COMMONS NORMALS: normal inspection of the chest Resp: COMMON NORMALS: normal respiratory effort and No use of accessory muscles AUSCULTATION: rales (Mild left) Cardio: COMMON NORMALS: regular rate and regular rhythm RATE: regular rate RHYTHM: regular rhythm GI: COMMON NORMALS: Normal to inspection, nondistended, normoactive bowel sounds present and Soft to palpation PALPATION: Yes Soft to palpation Neuro: COMMON NORMALS: patient oriented x3 SENSORIUM/ORIENTATION: Yes alert Course Consultations: Consultation #1: frank Vital Signs: Vital signs: Vital Signs Temperature 98.5 F 12/07/20 20:00 Pulse Rate 70 12/08/20 00:00 Respiratory Rate 17 12/08/20 00:00 Blood Pressure 115/61 12/08/20 00:00 Pulse Oximetry 97 12/08/20 00:00 MDM - Female MDM Narrative: Medical decision making narrative: 35-year-old female with with a history of chronic kidney disease. She received angio dye 2 days ago. Her creatinine at leaving the hospital yesterday was 1.7. Tonight is 3.9. Her magnesium and phosphorus are mildly high. Her BUN is 55. Chest x-ray reveals some pulmonary vascular congestion and significant cardiomegaly. She is treated in the ER with a 500 mL bolus of saline as well as IV bumetanide in hopes to stimulate her kidneys. She will be observed. Lab Data: Labs: Lab Results 12/07/20 12/07/20 Range/Units 20:59 20:59 WBC 5.8 (4.0-10.0) 10^3/ uL RBC 3.55 L (4.1-5.3) 10^6/u L Hgb 11.5 (11.5-15.3) g/dL Hct 36.8 L (37.0-47.0) % MCV 103.7 H (81-99) fL MCH 32.4 (28.0-34.0) pg MCHC 31.3 (30.0-36.0) g/dL RDW 13.8 (12.1-15.1) % Plt Count 142 (130-400) 10^3/c mm MPV 10.4 (7.4-10.4) fL Neut % (Auto) 73.5 % Lymph % (Auto) 12.0 % Mobile % (Auto) 11.4 % Eos % (Auto) 2.6 % Baso % (Auto) 0.2 % Neut # (Auto) 4.27 (1.8-7.7) 10^3/u L Lymph # (Auto) 0.7 L (0.8-4.8) 10^3/u L Mobile # (Auto) 0.7 (0.2-0.9) 10^3/u L Eos # (Auto) 0.2 (0.0-0.8) 10^3/u L Baso # (Auto) 0.0 (0.0-0.1) 10^3/u L Nucleated RBC % (a uto) 0 % Nucleated RBCs # 0.0 /100WBC Sodium 132 L (136-145) mmol/L Potassium 4.5 (3.5-5.1) mmol/L Chloride 97 L (98-107) mmol/L Carbon Dioxide 24 (22-29) mmol/L Anion Gap 15.5 (5-19) BUN 55 H (8-23) mg/dL Creatinine 3.9 H (0.5-0.9) mg/dL GFR Calculation Not Reportable Glucose 95 (65-115) mg/dL Calculated Osmolal ity 289 (285-295) mOsm/k g Calcium 8.6 (8.5-10.5) mg/dL Phosphorus 5.7 H (2.5-4.5) mg/dL Magnesium 2.4 H (1.7-2.3) mg/dL Total Bilirubin 0.5 (0.15-1.2) mg/dL AST 12 (0-32) U/L ALT 9 (0-33) U/L Alkaline Phosphata se 124 H (35-105) IU/L Total Protein 6.6 (6.6-8.7) g/dL Albumin 3.6 (3.5-5.2) g/dL Globulin 3.0 (1.3-4.6) g/dL Discharge Plan Discharge Patient Disposition: Placed in Observation Admit Provider: Katty Brennan Clinical Impression: Acute renal failure Qualifiers: Acute renal failure type: unspecified Qualified Code(s): N17.9 - Acute kidney failure, unspecified Coding Level of Care Code ED Police Patrol Officer for g Fwd Exam Detailed
[2020-12-07 21:04] LABS: Basophils % 0.2 %; Eosinophils # 0.2 10^3/uL (0.0-0.8); Eosinophils % 2.6 %; Hematocrit 36.8 % (37.0-47.0); Hemoglobin 11.5 g/dL (11.5-15.3); Lymphocytes # 0.7 10^3/uL (0.8-4.8); Mean Corpuscular HGB Conc 31.3 g/dL (30.0-36.0); Mean Corpuscular Hemoglobin 32.4 pg (28.0-34.0); Mean Corpuscular Volume 103.7 fL (81-99); Mean Platelet Volume 10.4 fL (7.4-10.4); Monocytes # 0.7 10^3/uL (0.2-0.9); Monocytes % 11.4 %; Neutrophils # 4.27 10^3/uL (1.8-7.7); Neutrophils % 73.5 %; Nucleated Red Blood Cells % 0 %; Platelet Count 142 10^3/cmm (130-400); Red Blood Count 3.55 10^6/uL (4.1-5.3); Red Cell Distribution Width 13.8 % (12.1-15.1); White Blood Count 5.8 10^3/uL (4.0-10.0)
[2020-12-07 21:16] VITALS: BP 108/54; PULSE 70; RESP 16; O2SAT 95
[2020-12-07] MEDS: sodium chloride 0.9% 500 ML IV (21:25)
[2020-12-07 21:33] LABS: Alanine Aminotransferase 9 U/L (0-33); Albumin Level 3.6 g/dL (3.5-5.2); Alkaline Phosphatase 124 IU/L (35-105); Anion Gap 15.5 (5-19); Aspartate Amino Transferase 12 U/L (0-32); Blood Urea Nitrogen 55 mg/dL (8-23); Calcium 8.6 mg/dL (8.5-10.5); Carbon Dioxide 24 mmol/L (22-29); Chloride 97 mmol/L (98-107); Glucose 95 mg/dL (65-115); Magnesium 2.4 mg/dL (1.7-2.3); Osmolality Calculated 289 mOsm/kg (285-295); Phosphorus 5.7 mg/dL (2.5-4.5); Potassium 4.5 mmol/L (3.5-5.1); Sodium 132 mmol/L (136-145); Total Bilirubin 0.5 mg/dL (0.15-1.2); Total Protein 6.6 g/dL (6.6-8.7)
[2020-12-07 22:00] VITALS: BP 115/87; PULSE 70; RESP 16; O2SAT 97
[2020-12-07] MEDS: bumetanide 0.25 mg/mL SDV 4 mL 1 MG IV (22:15)
[2020-12-07 23:00] VITALS: BP 121/82; PULSE 70; RESP 17; O2SAT 96
[2020-12-07 23:30] VITALS: BP 121/82; PULSE 70; RESP 16; O2SAT 96
[2020-12-08] VITALS (7 sets, daily range): BP systolic 103–119; BP diastolic 58–70; PULSE 69–73; RESP 16–18; TEMP 36.3–37.1; O2SAT 91–98
--- NOTE | 2020-12-08 00:02 | PM.HP ---
Providers/Chief Complaint Admitting Physician: Katty Brennan MD Primary Care Provider: Janie Agustin MD Chief Complaint: Kidney Pain\Cant Pee History of Present Illness Teena Timmons is a 75 year old female past medical history as outlined below in PMH, recently admitted here between 12/05-12/06 for acute critical limb ischemia of the left leg with Near complete occlusion of the popliteal artery. left posterior tibial and dorsalis pedis arteries. On 12/05 she underwent balloon angioplasty, thrombectomy and nondrug-eluting stent placement in distal tibioperoneal trunk and ostial left anterior tibial vessel for acute limb threatening ischemia for limb salvage. Diuretics were resumed on discharge. she returned today with inability to pass urine. Creatinine was up to 3.9 from 1.7 at discharge. Chest x-ray showed some pulmonary vascular congestion. She was treated in the ER with 500 mL bolus of saline and IV Bumex. Carcamo placement Review of Systems General: Reports: 10 or more systems reviewed and unremarkable except in HPI and below Const: Denies: fever(s), chills or body aches Eyes: Denies: change in vision, blurry vision or photophobia ENMT: Reports: hoarseness; Denies: throat pain, enlarged tonsils, odynophagia or nasal congestion Card: Denies: chest pain, palpitations, irregular heart rhythm, edema, swelling of feet/ankles, lightheadedness, pre-syncope, dyspnea on exertion or orthopnea Resp: Denies: dyspnea, productive cough, non-productive cough, wheezing, stridor, pain on inspiration, change in phlegm color, hemoptysis or chest congestion GI: Denies: abdominal pain, nausea, vomiting, hematemesis, coffee ground emesis, dysphagia, heartburn, diarrhea, constipation, GI cramping, change in stool character, hematochezia or melena : Denies: flank pain, difficulty voiding, dysuria, urinary frequency, urinary urgency, urinary hesitancy or hematuria Musc: Denies: neck pain, back pain, extremity pain, joint swelling, joint warmth or deformity Neuro: Denies: headache(s), numbness in extremities, weakness in extremities, sensory changes, difficulty walking, frequent falls, dizziness, vertigo, behavioral changes, Slurred speech present or seizure-like activity Psych: Denies: anxiety, depression, suicidal ideation or homicidal ideation Endo: Denies: polyuria, polydipsia, tired all the time, cold intolerance or hot flashes Yovanny/Lymph: Denies: easy bruising or easy bleeding Medications/Allergies Home Medications Medication Instructions Recorded Confirmed Last Taken Type ferrous sulfate 325 mg (65 mg 325 mg PO BID 06/28/19 12/05/20 12/05/20 History iron) tablet magnesium 250 mg tablet 250 mg PO DAILY 06/28/19 12/05/20 12/04/20 History vitamin B complex 1 tab PO Q2D 06/28/19 12/05/20 12/04/20 History allopurinol 100 mg tablet 100 mg PO DAILY 07/06/19 12/05/20 12/05/20 History sacubitril 24 mg-valsartan 26 mg 1 tab PO BID 07/06/19 12/05/20 12/05/20 History tablet acetaminophen 500 mg capsule 500 mg PO Q6H PRN 01/12/20 12/05/20 12/05/20 History gabapentin 100 mg capsule 300 mg PO TID cap 04/01/20 12/05/20 12/05/20 History metoprolol succinate 100 mg 100 mg PO DAILY 09/30/20 12/05/20 12/05/20 History tablet,extended release 24 hr bumetanide 2 mg PO BID 12/05/20 12/05/20 12/05/20 History Adult Aspirin Regimen 81 mg PO DAILY #30 tab 12/06/20 Unknown Rx clopidogrel 75 mg PO DAILY #90 tab 12/06/20 Unknown Rx pantoprazole 40 mg PO DAILY #90 tab 12/06/20 Unknown Rx Allergies Allergy/AdvReac Type Severity Reaction Status Date / Time latex Allergy hives Verified 11/04/20 10:13 Sezcxhc-Lke-Fcd Reductase AdvReac Intermediate ADR-Muscle Verified 11/04/20 10:13 Inhibitor Pain TPA Allergy Severe ALGY-Anaphy Uncoded 11/04/20 10:13 laxis PFSH Acute PFSH: Medical History Alcoholism in recovery Atrial fibrillation Breast cancer Cardiomyopathy Carotid stenosis, bilateral CHF (congestive heart failure) CKD (chronic kidney disease) Claudication COPD (chronic obstructive pulmonary disease) CVA (cerebral vascular accident) DJD (degenerative joint disease), lumbar ICD (implantable cardioverter-defibrillator) in place Mitral regurgitation VALE on CPAP Peripheral vascular disease Presence of Watchman left atrial appendage closure device PUD (peptic ulcer disease) PVCs (premature ventricular contractions) Surgical History History of cardiac radiofrequency ablation History of resection of meningioma Previous back surgery S/P cataract extraction S/P lumpectomy of breast Family History Sister Cancer Social History Smoking and tobacco status: former smoker Alcohol intake: former Other details last alcohol use: recovering alcoholic Household members: spouse Marital status: Vitals/I&O/Wt Last Vital Signs Temp 98.5 F 12/07/20 20:00 Pulse 70 12/07/20 23:30 Resp 16 12/07/20 23:30 BP 121/82 12/07/20 23:30 Pulse Ox 96 12/07/20 23:30 12/07/20 12/07/20 12/08/20 14:59 22:59 06:59 Intake Total 500 / 500 Balance 500 / 500 Weight last 48 hrs Weight 94.971 kg Physical Exam Narrative: EXAM NARRATIVE: General: No acute distress, AO x3 HEENT: PERRLA, pupils bilaterally equal and reactive, pallors not present Chest: Normal vesicular breath sounds, no added sounds, equal good air entry bilaterally CVS: S1-S2 regular, no murmurs, no tachycardia, no gallops, no rubs Abdomen: Soft, nontender, no organomegaly, bowel sounds present Neuro: No focal deficits, no facial deformity, AO x3, power 5/5 in all limbs Extremities: Data : 12/07/20 20:59 12/07/20 20:59 A&P Assessment and plan (1) Acute renal failure: Creatinine up to 3.9 from 1.7 at discharge yesterday. Gentle IV hydration with normal saline at 50 cc an hour. Hold further doses of Bumex for now, hold Entresto. Cardiology consult in morning to assist with diuretic and fluid management. Check urine lites, renal ultrasound to evaluate for any interim development of hydronephrosis Place Carcamo catheter to chart accurate output and additionally bypass any potential bladder outlet obstruction. Status: Acute Qualifiers: Acute renal failure type: unspecified Qualified Code(s): N17.9 - Acute kidney failure, unspecified (2) Peripheral vascular disease: Status post recent intervention balloon angioplasty with stent placement. Continue aspirin Plavix Status: Acute (3) VALE on CPAP: Status: Acute (4) ICD (implantable cardioverter-defibrillator) in place: Status: Acute (5) Cardiomyopathy: Status: Acute Qualifiers: Cardiomyopathy type: dilated Qualified Code(s): I42.0 - Dilated cardiomyopathy (6) CKD (chronic kidney disease): Status: Acute Qualifiers: Chronic kidney disease stage: stage 3 (moderate) Chronic kidney disease stage 3 subtype: stage 3b (GFR 30-44) Qualified Code(s): N18.32 - Chronic kidney disease, stage 3b (7) CHF (congestive heart failure): Status: Acute Qualifiers: Heart failure chronicity: chronic Heart failure type: combined systolic and diastolic Qualified Code(s): I50.42 - Chronic combined systolic (congestive) and diastolic (congestive) heart failure Additional A&P Information DVT prophylaxis: Lovenox Full code Attestations Medical Necessity Statement*: Observation admission for now, trend creatinine in the morning along with urine output after IV hydration. Coding Level of Care Code Acute Online Merchandising Coordinator for Chg Fwd Diagnoses Acute renal failure N17.9 Acute renal failure type: unspecified Peripheral vascular disease I73.9 VALE on CPAP G47.33; Z99.89 ICD (implantable cardioverter-defibrillator) in place Z95.810 Cardiomyopathy I42.0 Cardiomyopathy type: dilated CKD (chronic kidney disease) N18.32 Chronic kidney disease stage: stage 3 (moderate) Chronic kidney disease stage 3 subtype: stage 3b (GFR 30-44) CHF (congestive heart failure) I50.42 Heart failure chronicity: chronic Heart failure type: combined systolic and diastolic
[2020-12-08 01:25] LABS: NT Pro B Type Natriuretic Pept 7940 pg/mL (0-450)
--- NOTE | 2020-12-08 01:59 | USR_ITS ---
PROCEDURE INFORMATION: Exam: US Retroperitoneal; Complete; Kidneys and Bladder Exam date and time: 12/08/2020 1:59 AM Age: 75 years old Clinical indication: Abnormal findings; Abnormal lab test; Abnormal kidney function lab tests; Additional info: Jerzy, evalute for obstruction TECHNIQUE: Imaging protocol: Real-time ultrasound of the retroperitoneum with image documentation. Complete exam focused on the kidneys and bladder. COMPARISON: US Renal Kidney Structu* [id number] 03/03/2016 3:40 PM FINDINGS: Right kidney: 10.7 x 4.6 x 5.2 cm. Cortical thinning. Mild increased echogenicity. Left kidney: 9.7 x 5.5 x 4.4 cm. Cortical thinning. Mild increased echogenicity. Aorta: Aorta is nonaneurysmal Urinary bladder: Unremarkable. US/US renal BI* [id number] IMPRESSION: Cortical thinning with mildly increased echogenicity of both kidneys.
[2020-12-08 02:43] LABS: Add Urine Microscopic? NO; Charge for UA Resulting for Rev
[2020-12-08 02:45] LABS: Urine Appearance Clear (CLEAR); Urine Color Yellow (Yellow); pH Urine 5 (5-7)
[2020-12-08 02:46] LABS: Bilirubin Urine Neg (Negative); Blood Urine Neg (Negative); Glucose Urine UA Norm (Normal); Ketones Urine Negative (Negative); Leukocyte Esterase Urine Negative (Negative); Nitrate Urine Negative (Negative); Protein Urine Trace (Negative); Urobilinogen Urine 1 mg/dL (Negative)
[2020-12-08] MEDS: enoxaparin 40 mg/0.4 mL Syringe SUBCUT (02:48)
[2020-12-08] MEDS: sodium chloride 0.9% 1,000 ML 50 ML IV (02:48)
[2020-12-08 04:36] LABS: Potassium, Radom Urine 33 mmol/L; Urine Random Chloride 20 mmol/L; Urine Random Sodium 23 mmol/L
[2020-12-08 07:40] LABS: Alanine Aminotransferase 9 U/L (0-33); Albumin Level 3.1 g/dL (3.5-5.2); Alkaline Phosphatase 104 IU/L (35-105); Anion Gap 16.3 (5-19); Aspartate Amino Transferase 10 U/L (0-32); Blood Urea Nitrogen 58 mg/dL (8-23); Calcium 8.1 mg/dL (8.5-10.5); Carbon Dioxide 21 mmol/L (22-29); Chloride 102 mmol/L (98-107); Creatine Phosphokinase 39 U/L (26-192); Globulin 2.9 g/dL (1.3-4.6); Glucose 77 mg/dL (65-115); Osmolality Calculated 295 mOsm/kg (285-295); Potassium 4.3 mmol/L (3.5-5.1); Sodium 135 mmol/L (136-145); Total Bilirubin 0.4 mg/dL (0.15-1.2)
[2020-12-08] MEDS: clopidogrel 75 mg Tablet PO (08:42)
[2020-12-08] MEDS: pantoprazole DR 40 mg Tablet PO (08:42)
[2020-12-08] MEDS: gabapentin 300 mg Capsule PO ×2 (08:42→13:55)
[2020-12-08] MEDS: metoprolol succinate ER (24 HR) 100 mg Tablet PO (08:42)
--- NOTE | 2020-12-08 10:28 | PC.CHAP ---
Pastoral Care Encounter/Spiritual Assessment Type of Contact [] Declined wafer abrading machine tender visit [] Patient/Family/Request visit [] Outpatient visit [] Follow-up visit [] Physician referral [] Code/Alert [x] Routine visit [] Staff referral [] Actively dying [] Patient sleeping [] Family support [] [] Out of room [] Palliative care [] [] Receiving care in room [] Pre-surgical visit [] Trauma [] Long length of stay [] ICU visit [] Other: Relational/Emotional Strength [x] Patient feels connected with others/family/visitors/staff [] Distress [] Loneliness/isolation [] Abandonment Spirituality of Patient [x] Person of Bernie [] Attends Latter Day of their Bernie [x] Believes in Prayer [] Reads Bible or Gnosticism materials [] There are Spiritual issues to be addressed Lubrication Supervisor Interventions [x] Prayer [x] Active listening [x] Non-anxious presence [x] Spiritual/emotional support [] Crisis/trauma care [] Spiritual counseling [] Bereavement support [] Provided bereavement packet [] Provided Bible/devotional materials [] Provided toy/stuffed animal, coloring book to patient or family member [] Provided Communion [] Anointing/[place] [] Salvation [x] Completed spiritual assessment [] Other: Impact on Illness or Injury [] Angry [] Fearful [] Anxious [] Often cries [] Exhaustion [] Unable to work [] Unable to attend episcopalian [] Unable to walk/stand [] Unable to read [] Unable to drive [] Unable to eat/drink [] Unable to sleep [] Unable to be with family [] Patient intubated [] Other: Summary Lubrication Supervisor prayed with Patient and family member. Time spent with patient 8 minutes.
--- NOTE | 2020-12-08 12:15 | PM.PN ---
Subjective Subjective: Interval history: Poor urine output overnight. No new complaints Medications: Reviewed: Yes Vitals/I&O/Wt Last Vital Signs Temp 97.7 F 12/08/20 11:10 Pulse 70 12/08/20 11:10 Resp 18 12/08/20 11:10 BP 110/69 12/08/20 11:10 Pulse Ox 94 12/08/20 11:10 12/07/20 12/08/20 12/08/20 22:59 06:59 14:59 Intake Total 740 / 740 240 / 240 Output Total 60 / 60 Balance 680 / 680 240 / 240 Weight last 48 hrs Weight 94.971 kg Physical Exam Narrative: EXAM NARRATIVE: General: Alert, Awake, NAD. HEENT: Grossly Unremarkable CVS: NSR Chest: Non-Labored respiration ABD: non-distended Ext: No edema Urinary Catheter Management^: Carcamo: Cath Placed During This Visit: yes Reason for Continuing Indwelling Catheter: Accurate Measurement of Urinary Output in Critically Ill Patients Urinary Catheter Date of Insertion: 12/08/20 Urinary Catheter Time of Insertion: 02:30 Data : 12/07/20 20:59 12/08/20 07:00 A&P Assessment and plan (1) Acute renal failure: Creatinine up to 4.2 from 1.7 Gentle IV hydration with normal saline at 50 cc an hour. Hold further doses of Bumex for now, hold Entresto. Nephrology consult placed Carcamo catheter in place Monitor urine output No indication for dialysis Status: Acute Qualifiers: Acute renal failure type: unspecified Qualified Code(s): N17.9 - Acute kidney failure, unspecified (2) Peripheral vascular disease: Status post recent intervention balloon angioplasty with stent placement. Continue aspirin Plavix Status: Acute (3) VALE on CPAP: continue CPAP Status: Acute (4) ICD (implantable cardioverter-defibrillator) in place: Status: Acute (5) Cardiomyopathy: Status: Acute Qualifiers: Cardiomyopathy type: dilated Qualified Code(s): I42.0 - Dilated cardiomyopathy (6) CKD (chronic kidney disease): Status: Acute Qualifiers: Chronic kidney disease stage: stage 3 (moderate) Chronic kidney disease stage 3 subtype: stage 3b (GFR 30-44) Qualified Code(s): N18.32 - Chronic kidney disease, stage 3b (7) CHF (congestive heart failure): Status: Acute Qualifiers: Heart failure type: combined systolic and diastolic Heart failure chronicity: chronic Qualified Code(s): I50.42 - Chronic combined systolic (congestive) and diastolic (congestive) heart failure Additional A&P Information DVT prophylaxis: Lovenox Full code Attestations Medical Necessity Statement*: continue hospitalization for management of renal failure Time Spent in Patient Care: Greater than 35 minutes (>than 50% of time spent in counselling and/or direct pt care on unit). Coding Level of Care Code Acute Head Of Operation And Logistics for g Fwd Diagnoses Acute renal failure N17.9 Acute renal failure type: unspecified Peripheral vascular disease I73.9 VALE on CPAP G47.33; Z99.89 ICD (implantable cardioverter-defibrillator) in place Z95.810 Cardiomyopathy I42.0 Cardiomyopathy type: dilated CKD (chronic kidney disease) N18.32 Chronic kidney disease stage: stage 3 (moderate) Chronic kidney disease stage 3 subtype: stage 3b (GFR 30-44) CHF (congestive heart failure) I50.42 Heart failure type: combined systolic and diastolic Heart failure chronicity: chronic
--- NOTE | 2020-12-08 14:00 | PC.NURSE ---
notified Dr Patel that patient takes 300mg Gabapentin BID not TID. Dr Patel changed order to BID instead of TID.
--- NOTE | 2020-12-08 16:28 | P.CONIM_ITS ---
Providers/Reason For Consult Consulting Physician/Specialty*: MARTINE Max MD/ Cardiology Reason for Consult*: Patient with a recent peripheral angiogram, presenting with features of acute on chronic kidney injury and heart failure Attending Physician: Michael Patel Primary Care Provider: Janie Agustin MD History of Present Illness History of Present Illness Teena Timmons is a 75 year old female, was recently been to the hospital with features of limb threatening ischemia. She underwent emergency angiogram and was found to have thrombotically occluded( total occlusion ) distal popliteal and tibioperoneal trunk on the left side. No flow was noted upon angiogram. It was treated with multiple attempt of thrombectomy, balloon angioplasty and stent placement. She is known to have chronic kidney disease and being followed by Dr. Carolina. Repeat BUN/creatinine following the intervention was essentially unchanged or even slightly better. The patient was discharged home in stable condition. According to the patient, since the hospital discharge, she was not able to urinate. According to her , she was getting tired and weak. For this reason, she was brought back to the hospital. She did not have any chest pain or any unusual shortness of breath. No fever, chills or cough. No abdominal pain or dysuria. The bluish discoloration of the leg improved since the intervention. She has no hematoma/ bleeding in the right groin. Patient is known to have multiple medical problems. Has a history of peripheral vascular disease and had intervention of the popliteal/tibioperoneal trunk (left side in September 2019 and right side on October 2019) patient had balloon angioplasty of these lesions with a drug-coated balloon by Dr. Zamudio. Following the intervention, she kept on having bilateral leg pain. She had a repeat peripheral angiogram in January of last year. She was found to have patent popliteal/peroneal tibial arteries. The leg pain was turned out to be related to peripheral neuropathy. She has been taking gabapentin for this.Last week, she presented with features of limb threatening ischemia-cyanotic left leg in the below-knee area. Patient is known to have ischemic cardiomyopathy. Her ejection fraction was around 40% a year ago she is known to have recurrent heart failure. She had a SHIFT SUPERINTENDENT-D placement 2 years ago in [place] by Dr. Gallegos. The device function was found to be appropriate during the follow-up evaluations. He also is known to have atrial fibrillation and had watchman device placement. She has history of CVA involving the posterior cerebral circulation. Also has history of obstructive sleep apnea She had multiple blood transfusion for chronic anemia/GI bleed. She had a bleeding gastric ulcer and underwent endoscopic cauterization. 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 She is being followed up at the oncology clinic. She also is known to have chronic dizziness/ tinnitus. Review of Systems Narrative: CONSTITUTIONAL: No fever or chills. Generalized fatigue/weakness EYES: No blurring of vision or other visual disturbances lately. ENT: No hoarseness of voice, auditory disturbances or sore throat. CARDIOVASCULAR: As mentioned above. RESPIRATORY: No significant cough. GASTROINTESTINAL: See of gastric ulcer and GI bleed, status post endoscopic cauterization . GENITOURINARY: Chronic kidney disease INTEGUMENTARY: No skin rashes or history of skin cancer. NEURO: History of CVA in 2014, status post TPA, apparently developed anaphylactic reaction to TPA PSYCHIATRIC: No history of psychosis or major depression. HEMATOLOGIC: History of chronic anemia, multiple blood transfusions. Currently stable hemoglobin since cautery of the bleeding ulcer ENDOCRINE: No history of polyuria or polydipsia. MUSCULOSKELETAL: No recent joint pain or swelling. ALLERGY/IMMUNOLOGY: As mentioned above. Meds/Allergies Home Medications and Allergies Home Medications Medication Instructions Recorded Confirmed Last Taken Type ferrous sulfate 325 mg (65 mg 325 mg PO BID 06/28/19 12/08/20 12/05/20 History iron) tablet magnesium 250 mg tablet 250 mg PO DAILY 06/28/19 12/08/20 12/04/20 History vitamin B complex 1 tab PO DAILY 06/28/19 12/08/20 12/04/20 History allopurinol 100 mg tablet 100 mg PO DAILY 07/06/19 12/08/20 12/05/20 History sacubitril 24 mg-valsartan 26 mg 1 tab PO BID 07/06/19 12/08/20 12/05/20 History tablet acetaminophen 500 mg capsule 500 mg PO Q6H PRN 01/12/20 12/08/20 12/05/20 History gabapentin 100 mg capsule 300 mg PO BID cap 04/01/20 12/08/20 12/05/20 History metoprolol succinate 100 mg 100 mg PO DAILY 09/30/20 12/08/20 12/05/20 History tablet,extended release 24 hr bumetanide 2 mg PO BID 12/05/20 12/08/20 12/05/20 History aspirin [Adult Aspirin Regimen] 81 mg PO DAILY #30 tab 12/06/20 12/08/20 Unknown Rx clopidogrel 75 mg PO DAILY #90 tab 12/06/20 12/08/20 Unknown Rx pantoprazole 40 mg PO DAILY #90 tab 12/06/20 12/08/20 Unknown Rx Allergies Allergy/AdvReac Type Severity Reaction Status Date / Time latex Allergy hives Verified 11/04/20 10:13 [id number]-Zgs-Rwk Reductase AdvReac Intermediate ADR-Muscle Verified 11/04/20 10:13 Inhibitor Pain TPA Allergy Severe ALGY-Anaphy Uncoded 11/04/20 10:13 laxis Current Medications Current Medications Generic Name Dose Route Start Last Admin Trade Name Freq PRN Reason Stop Dose Admin Aspirin 81 mg 12/08/20 09:00 12/08/20 08:43 Aspirin 81 Mg Ec Tablet PO Not Given DAILY CHINO Clopidogrel Bisulfate 75 mg 12/08/20 09:00 12/08/20 08:42 Clopidogrel 75 Mg Tablet PO 75 mg DAILY CHINO Administration Sodium Chloride 1,000 mls @ 50 mls/hr 12/08/20 01:59 12/08/20 02:48 Sodium Chloride 0.9% IV 50 mls/hr .Q20H CHINO Administration Metoprolol Succinate 100 mg 12/08/20 09:00 12/08/20 08:42 Metoprolol Succinate Er (24 Hr) 100 Mg Tablet PO 100 mg DAILY CHINO Administration Pantoprazole Sodium 40 mg 12/08/20 09:00 12/08/20 08:[address] 40 Mg Tablet PO 40 mg DAILY CHINO Administration PFSH Acute PFSH: Medical History (Updated 12/08/20 @ 18:27 by Christiano Max MD) Acute on chronic systolic heart failure Alcoholism in recovery Atrial fibrillation Breast cancer Cardiomyopathy Carotid stenosis, bilateral CHF (congestive heart failure) CKD (chronic kidney disease) Claudication COPD (chronic obstructive pulmonary disease) CVA (cerebral vascular accident) DJD (degenerative joint disease), lumbar ICD (implantable cardioverter-defibrillator) in place Mitral regurgitation VALE on CPAP Peripheral vascular disease Presence of Watchman left atrial appendage closure device PUD (peptic ulcer disease) PVCs (premature ventricular contractions) Surgical History History of cardiac radiofrequency ablation History of resection of meningioma Previous back surgery S/P cataract extraction S/P lumpectomy of breast Family History Sister Cancer Social History Smoking and tobacco status: former smoker Alcohol intake: former Other details last alcohol use: recovering alcoholic Household members: spouse Marital status: Vitals/I&O/Wt Last Vital Signs Temp 97.6 F 12/08/20 15:25 Pulse 73 12/08/20 15:25 Resp 17 12/08/20 15:25 BP 106/68 12/08/20 15:25 Pulse Ox 94 12/08/20 15:25 12/08/20 12/08/20 12/08/20 06:59 14:59 22:59 Intake Total 740 / 740 360 / 360 Output Total 60 / 60 Balance 680 / 680 360 / 360 Weight last 48 hrs Weight 209 lb 6 oz Physical Exam Narrative: EXAM NARRATIVE: GENERAL: The patient is alert and oriented times three. Not in any acute distress. Moderately obese HEENT: Minimal pallor. No icterus or lymphadenopathy. The pupils are symmetrical in size. Oral cavity: There are no mucous membrane lesions. Funduscopic examination: Fundus is not visualized NECK: Trachea appears to be central. No masses noted. No JVD or thyromegaly appreciated. No carotid bruit. RESPIRATORY: Chest is symmetrical. No intercostals muscle retraction or any accessory muscle activation. There is no chest wall tenderness. Breath sounds are heard bilaterally. No rales or rhonchi heard. No evidence of any consolidation. BREASTS: Deferred. HEART: The PMI could not be palpated. No palpable precordial events. S1 and S2 are normal. No S3 or S4 heard. No pericardial rub or any click heard. Systolic murmur in the left sternal border. No diastolic murmurs. ABDOMEN: Abdomen is obese . no vessel pulsations or distention. No tenderness. No organomegaly appreciated. No abdominal bruit. Bowel sounds are normally heard. : Deferred. RECTAL: Deferred. LYMPHATIC: No lymphadenopathy noted in the neck or groin. EXTREMITIES: No edema or cyanosis. Peripheral pulses are weak bilaterally and relatively cold(both feet). MUSCULOSKELETAL: No acute joint deformities or swelling SKIN: There are no significant scars or skin rash noted. NEUROPSYCHIATRIC: The patient is alert and oriented x3. Appears to be in a good mood. The higher functions are grossly within normal limits. No tremors or rigidity noted. Urinary Catheter Management^: Carcamo: Cath Placed During This Visit: yes Reason for Continuing Indwelling Catheter: Accurate Measurement of Urinary Output in Critically Ill Patients Urinary Catheter Date of Insertion: 12/08/20 Urinary Catheter Time of Insertion: 02:30 Data Labs: Other Labs: Laboratory Last Values WBC 5.8 10^3/uL (4.0- 10.0) 12/07/20 20:59 RBC 3.55 10^6/uL (4.1 -5.3) L 12/07/20 20:59 Hgb 11.5 g/dL (11.5-1 5.3) 12/07/20 20:59 Hct 36.8 % (37.0-47.0 ) L 12/07/20 20:59 MCV 103.7 fL (81-99) H 12/07/20 20:59 MCH 32.4 pg (28.0-34. 0) 12/07/20 20:59 MCHC 31.3 g/dL (30.0-3 6.0) 12/07/20 20:59 RDW 13.8 % (12.1-15.1 ) 12/07/20 20:59 Plt Count 142 10^3/cmm (130 -400) 12/07/20 20:59 MPV 10.4 fL (7.4-10.4 ) 12/07/20 20:59 Neut % (Auto) 73.5 % 12/07/20 20:59 Lymph % (Auto) 12.0 % 12/07/20 20:59 [place] % (Auto) 11.4 % 12/07/20 20:59 Eos % (Auto) 2.6 % 12/07/20 20:59 Baso % (Auto) 0.2 % 12/07/20 20:59 Neut # (Auto) 4.27 10^3/uL (1.8 -7.7) 12/07/20 20:59 Lymph # (Auto) 0.7 10^3/uL (0.8- 4.8) L 12/07/20 20:59 [place] # (Auto) 0.7 10^3/uL (0.2- 0.9) 12/07/20 20:59 Eos # (Auto) 0.2 10^3/uL (0.0- 0.8) 12/07/20 20:59 Baso # (Auto) 0.0 10^3/uL (0.0- 0.1) 12/07/20 20:59 Nucleated RBC % (a uto) 0 % 12/07/20 20:59 Nucleated RBCs # 0.0 /100WBC 12/07/20 20:59 Sodium 135 mmol/L (136-1 45) L 12/08/20 07:00 Potassium 4.3 mmol/L (3.5-5 .1) 12/08/20 07:00 Chloride 102 mmol/L (98-10 7) 12/08/20 07:00 Carbon Dioxide 21 mmol/L (22-29) L 12/08/20 07:00 Anion Gap 16.3 (5-19) 12/08/20 07:00 BUN 58 mg/dL (8-23) H 12/08/20 07:00 Creatinine 4.2 mg/dL (0.5-0. 9) H 12/08/20 07:00 GFR Calculation Not Reportable 12/08/20 07:00 Glucose 77 mg/dL (65-115) 12/08/20 07:00 Calculated Osmolal ity 295 mOsm/kg (285- 295) 12/08/20 07:00 Calcium 8.1 mg/dL (8.5-10 .5) L 12/08/20 07:00 Phosphorus 5.7 mg/dL (2.5-4. 5) H 12/07/20 20:59 Magnesium 2.4 mg/dL (1.7-2. 3) H 12/07/20 20:59 Total Bilirubin 0.4 mg/dL (0.15-1 .2) 12/08/20 07:00 AST 10 U/L (0-32) 12/08/20 07:00 ALT 9 U/L (0-33) 12/08/20 07:00 Alkaline Phosphata se 104 IU/L (35-105) 12/08/20 07:00 Creatine Kinase 39 U/L (26-192) 12/08/20 07:00 NT-Pro-B Natriuret Pep 7940 pg/mL (0-450 ) H 12/07/20 20:59 Total Protein 6.0 g/dL (6.6-8.7 ) L 12/08/20 07:00 Albumin 3.1 g/dL (3.5-5.2 ) L 12/08/20 07:00 Globulin 2.9 g/dL (1.3-4.6 ) 12/08/20 07:00 Urine Color Yellow (Yellow) 12/08/20 02:30 Urine Appearance Clear (CLEAR) 12/08/20 02:30 Urine pH 5 (5-7) 12/08/20 02:30 Ur Specific Gravit y 1.010 (1.005-1.0 30) 12/08/20 02:30 Urine Protein Trace (Negative) 12/08/20 02:30 Urine Glucose (UA) Norm (Normal) 12/08/20 02:30 Urine Ketones Negative (Negati ve) 12/08/20 02:30 Urine Blood Neg (Negative) 12/08/20 02:30 Urine Nitrate Negative (Negati ve) 12/08/20 02:30 Urine Bilirubin Neg (Negative) 12/08/20 02:30 Urine Urobilinogen 1 mg/dL (Negative ) H 12/08/20 02:30 Ur Leukocyte Dunia ase Negative (Negati ve) 12/08/20 02:30 Ur Random Sodium 23 mmol/L 12/08/20 04:07 Ur Random Potassiu m 33 mmol/L 12/08/20 04:07 Ur Random Chloride 20 mmol/L 12/08/20 04:07 Imaging^: Echo: My impression: 2019 echocardiogram in January 2020 This is a limited limited echocardiogram to assess LV systolic function. LV systolic funtion is mild to moderately reduced with EF of 40- 45% CXR: My impression: Markedly enlarged cardiac silhouette. No acute infiltrate noted. Prominent pulmonary venous markings EKG^: EKG 1: My Interpretation: EKG from today revealed 100% AV paced rhythm. Further interpretation is not possible. A&P Assessment and plan (1) Acute kidney injury superimposed on chronic kidney disease: Patient is a BUN/creatinine levels are going up. She seems to have oliguric renal failure. Most likely this is related to contrast-induced nephropathy. Discussed with the telenephrology service. We may continue with a careful hydration. Status: Acute (2) Chronic systolic heart failure: Patient currently has no clinical evidence of any heart failure. I may check on her BNP is baseline. Her oxygen saturation is in the normal range. Hold off on any diuretic at this time. May increase IV fluid to 75 cc/h. Status: Acute (3) Peripheral vascular disease: According the patient, her leg pain has significantly improved. The cyanotic discoloration also has improved. We will continue on the current medication for the time being. Status: Acute (4) Cardiac resynchronization therapy defibrillator (SHIFT SUPERINTENDENT-D) in place: Device function seems appropriate. We will continue on the current monitoring schedule. Status: Acute (5) Non-ischemic cardiomyopathy: Elevation fraction was around 40% by echocardiogram in 2020. We will hold off on the Entresto at this time. Status: Acute Additional A&P Information Her other problems are #1 history of atrial fibrillation, status post radiofrequency ablation, status post watchman device placement. #2. History of CVA involving the posterior circulation; status post TPA; anaphylactic reaction to TPA #3. History of massive GI bleed requiring multiple blood transfusions. History of bleeding gastric ulcer status post cauterization #4 history of essential benign hypertension #5 history of peripheral neuropathy Other problems are as outlined before We will continue with a careful hydration and close monitoring. Watching for the development of any heart failure. The patient's clinical progress, further recommendations will be made. Thank you for the opportunity to eval this patient make these recommendation Coding Level of Care Code Acute Wallpaper Cleaner for Maday Shi History Detailed Exam Detailed Medical Decision Making High Complexity Diagnoses Acute kidney injury superimposed on chronic kidney disease N17.9; N18.9 Chronic systolic heart failure I50.22 Peripheral vascular disease I73.9 Cardiac resynchronization therapy defibrillator (SHIFT SUPERINTENDENT-D) in place Z95.810 Non-ischemic cardiomyopathy I42.8 Time Spent (min) 65
--- NOTE | 2020-12-08 17:31 | PC.NURSE ---
Dr Max requesting call from Telenephrology. play writer called Telenephrology and left message requesting him to call Dr Max. [facility] verbal order to increase IV fluids from 50ml/hr to 75ml/hr. play writer put order in.
[2020-12-08 17:42] LABS: NT Pro B Type Natriuretic Pept 8655 pg/mL (0-450)
--- NOTE | 2020-12-08 18:00 | PC.NURSE ---
Notified Dr Max of patient urine output of 150ml. and Dr Patel.
[2020-12-08] MEDS: sodium chloride 0.9% 1,000 ML 75 ML IV (20:19)
--- NOTE | 2020-12-08 21:10 | P.CONIM_ITS ---
Providers/Reason For Consult Consulting Physician/Specialty*: Podaralla/Telenephrology Reason for Consult*: Renal failure Attending Physician: Michael Patel Primary Care Provider: Janie Agustin MD History of Present Illness History of Present Illness Teena Timmons is a 75 year old female presented to hospital with inability to urinate for 1day. Labs showed creatinine of 3.9, so telenephrology consulted. Pt had angioplasty with stent placement on 12/05 for left leg ischemia. No significant use of NSAIDs. Review of Systems General: Reports: 10 or more systems reviewed and unremarkable except in HPI and below Const: Denies: fever(s) or chills Card: Denies: chest pain or palpitations Resp: Denies: dyspnea GI: Denies: abdominal pain, nausea, vomiting or diarrhea : Reports: difficulty voiding Musc: Denies: back pain Skin/Breast: Denies: rash Neuro: Denies: headache(s) Psych: Denies: anxiety Yovanny/Lymph: Denies: easy bruising All/Imm: Denies: urticaria Meds/Allergies Home Medications and Allergies Home Medications Medication Instructions Recorded Confirmed Last Taken Type ferrous sulfate 325 mg (65 mg 325 mg PO BID 06/28/19 12/08/20 12/05/20 History iron) tablet magnesium 250 mg tablet 250 mg PO DAILY 06/28/19 12/08/20 12/04/20 History vitamin B complex 1 tab PO DAILY 06/28/19 12/08/20 12/04/20 History allopurinol 100 mg tablet 100 mg PO DAILY 07/06/19 12/08/20 12/05/20 History sacubitril 24 mg-valsartan 26 mg 1 tab PO BID 07/06/19 12/08/20 12/05/20 History tablet acetaminophen 500 mg capsule 500 mg PO Q6H PRN 01/12/20 12/08/20 12/05/20 History gabapentin 100 mg capsule 300 mg PO BID cap 04/01/20 12/08/20 12/05/20 History metoprolol succinate 100 mg 100 mg PO DAILY 09/30/20 12/08/20 12/05/20 History tablet,extended release 24 hr bumetanide 2 mg PO BID 12/05/20 12/08/20 12/05/20 History aspirin [Adult Aspirin Regimen] 81 mg PO DAILY #30 tab 12/06/20 12/08/20 Unknown Rx clopidogrel 75 mg PO DAILY #90 tab 12/06/20 12/08/20 Unknown Rx pantoprazole 40 mg PO DAILY #90 tab 12/06/20 12/08/20 Unknown Rx Allergies Allergy/AdvReac Type Severity Reaction Status Date / Time latex Allergy hives Verified 11/04/20 10:13 Nkkklxs-Ixo-Gis Reductase AdvReac Intermediate ADR-Muscle Verified 11/04/20 10:13 Inhibitor Pain TPA Allergy Severe ALGY-Anaphy Uncoded 11/04/20 10:13 laxis Current Medications Current Medications Generic Name Dose Route Start Last Admin Trade Name Rustyq PRN Reason Stop Dose Admin Aspirin 81 mg 12/08/20 09:00 12/08/20 08:43 Aspirin 81 Mg Ec Tablet PO Not Given DAILY CHINO Clopidogrel Bisulfate 75 mg 12/08/20 09:00 12/08/20 08:42 Clopidogrel 75 Mg Tablet PO 75 mg DAILY CHINO Administration Gabapentin 300 mg 12/08/20 18:00 12/08/20 16:57 Gabapentin 300 Mg Capsule PO Not Given BID CHINO Sodium Chloride 1,000 mls @ 75 mls/hr 12/08/20 01:59 12/08/20 20:19 Sodium Chloride 0.9% IV 75 mls/hr .[id number] CHINO Administration Metoprolol Succinate 100 mg 12/08/20 09:00 12/08/20 08:42 Metoprolol Succinate Er (24 Hr) 100 Mg Tablet PO 100 mg DAILY CHINO Administration Pantoprazole Sodium 40 mg 12/08/20 09:00 12/08/20 08:[address] 40 Mg Tablet PO 40 mg DAILY CHINO Administration PFSH Acute PFSH: Medical History Acute on chronic systolic heart failure Alcoholism in recovery Atrial fibrillation Breast cancer Cardiomyopathy Carotid stenosis, bilateral CHF (congestive heart failure) CKD (chronic kidney disease) Claudication COPD (chronic obstructive pulmonary disease) CVA (cerebral vascular accident) DJD (degenerative joint disease), lumbar ICD (implantable cardioverter-defibrillator) in place Mitral regurgitation VALE on CPAP Peripheral vascular disease Presence of Watchman left atrial appendage closure device PUD (peptic ulcer disease) PVCs (premature ventricular contractions) Surgical History History of cardiac radiofrequency ablation History of resection of meningioma Previous back surgery S/P cataract extraction S/P lumpectomy of breast Family History Sister Cancer Social History Smoking and tobacco status: former smoker Alcohol intake: former Other details last alcohol use: recovering alcoholic Household members: spouse Marital status: Vitals/I&O/Wt Last Vital Signs Temp 97.6 F 12/08/20 15:25 Pulse 73 12/08/20 15:25 Resp 17 12/08/20 15:25 BP 106/68 12/08/20 15:25 Pulse Ox 94 12/08/20 15:25 12/08/20 12/08/20 12/08/20 06:59 14:59 22:59 Intake Total 740 / 740 360 / 360 949.583 / 1309.583 Output Total 60 / 60 150 / 150 Balance 680 / 680 360 / 360 799.583 / 1159.583 Weight last 48 hrs Weight 94.971 kg Physical Exam Narrative: EXAM NARRATIVE: telesteth did not connect Const: COMMON NORMALS: no acute distress, patient oriented x3 and alert GENERAL APPEARANCE: cooperative ORIENTATION/CONSCIOUSNESS: Yes awake Extremity: GENERAL: Yes edema Neuro: COMMON NORMALS: patient oriented x3 SENSORIUM/ORIENTATION: Yes alert Urinary Catheter Management^: Carcamo: Cath Placed During This Visit: yes Reason for Continuing Indwelling Catheter: Accurate Measurement of Urinary Output in Critically Ill Patients Urinary Catheter Date of Insertion: 12/08/20 Urinary Catheter Time of Insertion: 02:30 A&P Assessment and plan (1) Acute kidney injury superimposed on chronic kidney disease: Pt has CKD with baseline Cr around 1.5 - 2.0, her ARF is due to contrast induced nephropathy. Will check urine studies. Renal ultrasound does not show any obstruction. Hold diuretics & entresto. No indication for any dialysis at this time. Status: Acute (2) HTN (hypertension): Will monitor BP closely Status: Acute (3) Anemia: Follow hb Status: Acute (4) CHF (congestive heart failure): D/w layaway clerk on the phone regarding holding bumex & entresto for time being but if pt gets short of breath then we can restart bumex Status: Acute Qualifiers: Heart failure type: combined systolic and diastolic Heart failure chronicity: chronic Qualified Code(s): I50.42 - Chronic combined systolic (congestive) and diastolic (congestive) heart failure Consult Attestations Medical Necessity Statement: Renal failure Coding Level of Care Code Acute Scenic Designer for [facility] Fwd Diagnoses Acute kidney injury superimposed on chronic kidney disease N17.9; N18.9 HTN (hypertension) I10 Anemia D64.9 CHF (congestive heart failure) I50.42 Heart failure type: combined systolic and diastolic Heart failure chronicity: chronic
[2020-12-09] VITALS (7 sets, daily range): BP systolic 106–123; BP diastolic 58–77; PULSE 69–72; RESP 17–20; TEMP 36.3–37.7; O2SAT 92–97
[2020-12-09 06:12] LABS: Basophils % 0.4 %; Eosinophils # 0.2 10^3/uL (0.0-0.8); Eosinophils % 2.8 %; Hematocrit 33.1 % (37.0-47.0); Hemoglobin 10.7 g/dL (11.5-15.3); Lymphocytes # 0.7 10^3/uL (0.8-4.8); Lymphocytes % 12.3 %; Mean Corpuscular HGB Conc 32.3 g/dL (30.0-36.0); Mean Corpuscular Hemoglobin 32.9 pg (28.0-34.0); Mean Corpuscular Volume 101.8 fL (81-99); Mean Platelet Volume 10.9 fL (7.4-10.4); Monocytes # 0.6 10^3/uL (0.2-0.9); Monocytes % 10.9 %; Neutrophils # 3.89 10^3/uL (1.8-7.7); Neutrophils % 73.4 %; Nucleated Red Blood Cells % 0 %; Platelet Count 147 10^3/cmm (130-400); Red Blood Count 3.25 10^6/uL (4.1-5.3); Red Cell Distribution Width 13.7 % (12.1-15.1); White Blood Count 5.3 10^3/uL (4.0-10.0)
[2020-12-09] MEDS: enoxaparin 30 mg/0.3 mL Syringe SUBCUT (06:27)
[2020-12-09 06:32] LABS: Alanine Aminotransferase 8 U/L (0-33); Alkaline Phosphatase 117 IU/L (35-105); Aspartate Amino Transferase 12 U/L (0-32); Blood Urea Nitrogen 66 mg/dL (8-23); Carbon Dioxide 18 mmol/L (22-29); Chloride 101 mmol/L (98-107); Globulin 2.8 g/dL (1.3-4.6); Glucose 99 mg/dL (65-115); Osmolality Calculated 295 mOsm/kg (285-295); Sodium 133 mmol/L (136-145); Total Bilirubin 0.4 mg/dL (0.15-1.2); Total Protein 5.8 g/dL (6.6-8.7)
[2020-12-09 06:34] LABS: Anion Gap 18.7 (5-19); Potassium 4.7 mmol/L (3.5-5.1)
[2020-12-09] MEDS: metoprolol succinate ER (24 HR) 100 mg Tablet PO (07:44)
[2020-12-09] MEDS: gabapentin 300 mg Capsule PO ×2 (07:44→18:15)
[2020-12-09] MEDS: pantoprazole DR 40 mg Tablet PO (07:44)
[2020-12-09] MEDS: clopidogrel 75 mg Tablet PO (07:44)
[2020-12-09] MEDS: sodium chloride 0.9% 1,000 ML 75 ML IV ×2 (07:45→22:05)
--- NOTE | 2020-12-09 07:57 | PC.NURSE ---
Dr Carter removed CBI catheter. urinal provided to patient.
--- NOTE | 2020-12-09 10:21 | PC.NURSE ---
0747 patient rated pain 4/10. patient repositioned in bed. patient refused pain meds.
--- NOTE | 2020-12-09 11:00 | P.PN_ITS ---
Subjective Subjective: Interval history: Ms. Timmons feels essentially well today with no acute complaints. She is still not making much urine. No extremity edema, shortness of breath or other hypervolemic symptoms and she is tolerating the intravenous fluid. Hemodynamics reviewed, remains stable. No uremic symptoms. Vitals/I&O/Wt Last Vital Signs Temp 97.3 F L 12/09/20 08:00 Pulse 72 12/09/20 08:00 Resp 17 12/09/20 08:00 BP 106/69 12/09/20 08:00 Pulse Ox 95 12/09/20 08:00 12/08/20 12/09/20 12/09/20 22:59 06:59 14:59 Intake Total 1429.583 / 1789.583 857.5 / 857.5 Output Total 150 / 150 100 / 250 Balance 1279.583 / 1639.583 -100 / 1539.583 857.5 / 857.5 Weight last 48 hrs Weight 94.971 kg Physical Exam Narrative: EXAM NARRATIVE: Constitutional: Awake, comfortable HEENT: Wet mucosa, no jvp, non icteric Lungs: Bilaterally clear without discernible wheeze, rales in all lung zones CVS: S1 S2, no murmurs Abdo: Soft, BS ok Ext 4: Minimal edema, peripheral perfusion with no cyanosis Neurological: Grossly non-focal Urinary Catheter Management^: Carcamo: Cath Placed During This Visit: yes Reason for Continuing Indwelling Catheter: Accurate Measurement of Urinary Output in Critically Ill Patients Urinary Catheter Date of Insertion: 12/08/20 Urinary Catheter Time of Insertion: 02:30 Data : 12/09/20 05:41 12/09/20 05:41 A&P Additional A&P Information 1. Acute renal injury Consistent with contrast nephropathy No indication for hemodialysis today. The persistently increasing creatinine and the poor urine output are worrisome that she may need dialysis in the next 24-48 hours. Continue IV hydration, she is currently tolerating this well. Switch PPI for H2 mendy Avoid usual nephrotoxic substances Dose medications for GFR less than 50 2. Status post thrombectomy and drug-eluting stent On 12/05 she underwent balloon angioplasty, thrombectomy and nondrug-eluting stent placement in distal tibioperoneal trunk and ostial left anterior tibial vessel for acute limb threatening ischemia for limb salvage On aspirin and Plavix Management per Dr. Max/Lewis 3. Chemistry Bicarb is now drifting down, continue to watch closely, no need to alkalinize at this level 4. Hemodynamics Blood pressure is soft, but stable. Brent Ybarra MD Nephrology [phone] Patient seen and examined via telemedicine, with the assistance of the bedside RN > 25 min spent in evaluation and mgmt of patient Attestations Medical Necessity Statement*: eval for BJ Coding Level of Care Code Acute Blow Molding Machine Tender for Maday Shi
--- NOTE | 2020-12-09 13:29 | PC.NURSE ---
Rcvd verbal order from Dr Quiroz for PT eval and treat.
--- NOTE | 2020-12-09 16:05 | PM.PN ---
Subjective Subjective: Interval history: Patient was seen and examined this morning, continues to have poor urine output, continues to have up trending BUN and creatinine. Continues to be on IV hydration, currently she is euvolemic no signs of hypervolemia, no signs of uremia. Other vitals and labs have been reviewed. Medications: Reviewed: Yes Vitals/I&O/Wt Last Vital Signs Temp 98.3 F 12/09/20 12:00 Pulse 69 12/09/20 12:00 Resp 18 12/09/20 12:00 BP 112/58 12/09/20 12:00 Pulse Ox 94 12/09/20 12:00 12/09/20 12/09/20 12/09/20 06:59 14:59 22:59 Intake Total 857.5 / 857.5 Output Total 100 / 250 Balance -100 / 1539.583 857.5 / 857.5 Weight last 48 hrs Weight 94.971 kg Physical Exam Const: COMMON NORMALS: patient oriented x3 HENMT: COMMON NORMALS: normocephalic and atraumatic HEAD & SCALP: normocephalic and atraumatic Chest: CHEST: Yes Symmetrical chest wall rise Resp: COMMON NORMALS: clear to auscultation bilaterally EFFORT & INSPECTION: Yes symmetric chest movement AUSCULTATION: clear to auscultation bilaterally Cardio: COMMON NORMALS: regular rate, regular rhythm, S1 normal heart sound present, S2 normal heart sound present, No gallops present (Cardio), No murmurs present (Cardio), No rub (Cardio) and Peripheral pulses 2+ throughout RATE: regular rate RHYTHM: regular rhythm HEART SOUNDS: S1 normal heart sound present and S2 normal heart sound present PERIPHERAL PULSES: Peripheral pulses 2+ throughout GI: COMMON NORMALS: Normal to inspection, nondistended, normoactive bowel sounds present, Soft to palpation, non-tender, No hepatosplenomegaly present and no masses AUSCULTATION: Yes normoactive bowel sounds PALPATION: Yes Soft to palpation and Yes No hepatosplenomegaly present RECTAL EXAM: deferred Extremity: COMMON NORMALS: no clubbing, cyanosis or edema and no pedal edema Neuro: COMMON NORMALS: patient oriented x3 Urinary Catheter Management^: Carcamo: Cath Placed During This Visit: yes Reason for Continuing Indwelling Catheter: Accurate Measurement of Urinary Output in Critically Ill Patients Urinary Catheter Date of Insertion: 12/08/20 Urinary Catheter Time of Insertion: 02:30 Data : 12/09/20 05:41 12/09/20 05:41 A&P Assessment and plan (1) Acute renal failure: Creatinine up to 4.2 from 1.7 Gentle IV hydration with normal saline at 50 cc an hour. Hold further doses of Bumex for now, hold Entresto. Nephrology consult placed Carcamo catheter in place Monitor urine output No indication for dialysis Status: Acute Qualifiers: Acute renal failure type: unspecified Qualified Code(s): N17.9 - Acute kidney failure, unspecified (2) Peripheral vascular disease: Status post recent intervention balloon angioplasty with stent placement. Continue aspirin Plavix Status: Acute (3) VALE on CPAP: continue CPAP Status: Acute (4) ICD (implantable cardioverter-defibrillator) in place: Status: Acute (5) Cardiomyopathy: Status: Acute Qualifiers: Cardiomyopathy type: dilated Qualified Code(s): I42.0 - Dilated cardiomyopathy (6) CKD (chronic kidney disease): Status: Acute Qualifiers: Chronic kidney disease stage: stage 3 (moderate) Chronic kidney disease stage 3 subtype: stage 3b (GFR 30-44) Qualified Code(s): N18.32 - Chronic kidney disease, stage 3b (7) CHF (congestive heart failure): Status: Acute Qualifiers: Heart failure type: combined systolic and diastolic Heart failure chronicity: chronic Qualified Code(s): I50.42 - Chronic combined systolic (congestive) and diastolic (congestive) heart failure Additional A&P Information DVT prophylaxis: Lovenox Full code Attestations Medical Necessity Statement*: Patient is to be in hospital for management of acute renal failure Coding Level of Care Code Acute Waterproof Bag Sewer for [facility] Fwd Diagnoses Acute renal failure N17.9 Acute renal failure type: unspecified Peripheral vascular disease I73.9 VALE on CPAP G47.33; Z99.89 ICD (implantable cardioverter-defibrillator) in place Z95.810 Cardiomyopathy I42.0 Cardiomyopathy type: dilated CKD (chronic kidney disease) N18.32 Chronic kidney disease stage: stage 3 (moderate) Chronic kidney disease stage 3 subtype: stage 3b (GFR 30-44) CHF (congestive heart failure) I50.42 Heart failure type: combined systolic and diastolic Heart failure chronicity: chronic
[2020-12-09] MEDS: polyethylene glycol 3350 Pkt 17 gm PO (18:15)
[2020-12-09] MEDS: docusate sodium 100 mg Capsule PO (18:15)
[2020-12-09] MEDS: famotidine 20 mg Tablet 40 MG PO (22:07)
[2020-12-10] VITALS (7 sets, daily range): BP systolic 122–172; BP diastolic 65–83; PULSE 70–76; RESP 12–30; TEMP 36.4–37.3; O2SAT 93–97
--- NOTE | 2020-12-10 00:10 | CTR_ITS ---
PROCEDURE INFORMATION: Exam: CT Head Without Contrast Exam date and time: 12/10/2020 12:10 AM Age: 75 years old Clinical indication: Injury or trauma; Fall; Blunt trauma (contusions or hematomas); Prior surgery; Surgery date: 6+ months TECHNIQUE: Imaging protocol: Computed tomography of the head without contrast. Radiation optimization: All CT scans at this facility use at least one of these dose optimization techniques: automated exposure control; mA and/or kV adjustment per patient size (includes targeted exams where dose is matched to clinical indication); or iterative reconstruction. COMPARISON: No relevant prior studies available. RADIATION DOSE METRICS: Total DLP (mGy-cm): 1553.57 FINDINGS: Brain: No acute intracranial hemorrhage or mass effect. There is very mild decreased attenuation in the periventricular white matter, likely from microvascular disease. No definite acute infarct by CT. Area of encephalomalacia in the right anterior frontal region, underlying the craniotomy. Cerebral ventricles: Ventricle size is normal for age. Paranasal sinuses: Included paranasal sinuses are essentially clear. Mastoid air cells: No significant acute finding. Vasculature: Vascular calcifications in the internal carotid and vertebral basilar systems. Bones/joints: No definite acute skull fracture. Prior frontal craniotomy. CT/CT head wo con* [id number] IMPRESSION: 1. No acute intracranial hemorrhage or mass effect. 2. Other findings discussed above. Radiation Dose CTDIVOL = (mGy): DLP = 1553.57 (mGy-cm)
--- NOTE | 2020-12-10 00:18 | PC.NURSE ---
Patient attempted to get out of bed to use the BSC. Patient lost balance and slightly hit her head. Vitals: BP 172/68 HR 71 O2 95% RR 30 Temp 97.8. Physician notified with orders for CT of heat wo contrast and Neuro checks Q2x4. has be called and notified.
[2020-12-10] MEDS: enoxaparin 30 mg/0.3 mL Syringe SUBCUT (05:07)
--- NOTE | 2020-12-10 08:19 | PC.NURSE ---
Derrick Engineer didn't see lab work ordered this AM. Asked Dr Quiroz if he wants labs drawn.
[2020-12-10] MEDS: gabapentin 300 mg Capsule PO (08:22)
[2020-12-10] MEDS: clopidogrel 75 mg Tablet PO (08:22)
[2020-12-10] MEDS: docusate sodium 100 mg Capsule PO ×2 (08:22→17:56)
[2020-12-10] MEDS: metoprolol succinate ER (24 HR) 100 mg Tablet PO (08:22)
--- NOTE | 2020-12-10 08:41 | PC.NURSE ---
Dr Quiroz put orders in for labs
[2020-12-10 09:20] LABS: Basophils % 0.2 %; Eosinophils % 0.5 %; Hematocrit 34.5 % (37.0-47.0); Hemoglobin 10.9 g/dL (11.5-15.3); Lymphocytes # 0.7 10^3/uL (0.8-4.8); Lymphocytes % 11.6 %; Mean Corpuscular HGB Conc 31.6 g/dL (30.0-36.0); Mean Corpuscular Hemoglobin 32.7 pg (28.0-34.0); Mean Corpuscular Volume 103.6 fL (81-99); Monocytes # 0.6 10^3/uL (0.2-0.9); Monocytes % 10.4 %; Neutrophils # 4.57 10^3/uL (1.8-7.7); Nucleated Red Blood Cells % 0 %; Platelet Count 152 10^3/cmm (130-400); Red Blood Count 3.33 10^6/uL (4.1-5.3); Red Cell Distribution Width 13.8 % (12.1-15.1); White Blood Count 5.9 10^3/uL (4.0-10.0)
[2020-12-10 09:40] LABS: Anion Gap 21.1 (5-19); Blood Urea Nitrogen 68 mg/dL (8-23); Calcium 8.2 mg/dL (8.5-10.5); Carbon Dioxide 15 mmol/L (22-29); Chloride 102 mmol/L (98-107); Glucose 101 mg/dL (65-115); Magnesium 2.5 mg/dL (1.7-2.3); Osmolality Calculated 296 mOsm/kg (285-295); Phosphorus 5.3 mg/dL (2.5-4.5); Potassium 5.1 mmol/L (3.5-5.1); Sodium 133 mmol/L (136-145)
--- NOTE | 2020-12-10 09:51 | PM.PN ---
Subjective Subjective: Interval history: Patient was seen and examined this morning, continues to have poor urine output. Continues to be on IV hydration, currently she is euvolemic no signs of hypervolemia, no signs of uremia. Other vitals and labs have been reviewed. Medications: Reviewed: Yes Vitals/I&O/Wt Last Vital Signs Temp 97.6 F 12/10/20 08:00 Pulse 71 12/10/20 08:00 Resp 19 H 12/10/20 08:00 BP 134/69 12/10/20 08:00 Pulse Ox 93 12/10/20 08:00 12/09/20 12/10/20 12/10/20 22:59 06:59 14:59 Intake Total 1480 / 2577.5 240 / 240 Output Total 150 / 150 125 / 275 Balance 1330 / 2427.5 -125 / 2302.5 240 / 240 Physical Exam Narrative: EXAM NARRATIVE: Constitutional: Awake, comfortable HEENT: Wet mucosa, no jvp, non icteric Lungs: Bilaterally clear without discernible wheeze, rales in all lung zones CVS: S1 S2, no murmurs Abdo: Soft, BS ok Ext 4: Minimal edema, peripheral perfusion with no cyanosis Neurological: Grossly non-focal Urinary Catheter Management^: Carcamo: Cath Placed During This Visit: yes Reason for Continuing Indwelling Catheter: Accurate Measurement of Urinary Output in Critically Ill Patients Urinary Catheter Date of Insertion: 12/08/20 Urinary Catheter Time of Insertion: 02:30 Data : 12/10/20 08:45 12/10/20 08:45 A&P Additional A&P Information 1. Acute renal injury Creatinine a little better Consistent with contrast nephropathy No indication for hemodialysis today, although she remains at high risk Continue IV hydration, she is currently tolerating this well. Switch PPI for H2 mendy Avoid usual nephrotoxic substances Dose medications for GFR less than 50 2. Status post thrombectomy and drug-eluting stent On 12/05 she underwent balloon angioplasty, thrombectomy and nondrug-eluting stent placement in distal tibioperoneal trunk and ostial left anterior tibial vessel for acute limb threatening ischemia for limb salvage On aspirin and Plavix Management per Dr. Max/Lewis 3. Chemistry Bicarb is now drifting down, swithc ivf to bicarb gtt 4. Hemodynamics Blood pressure is soft, but stable. Brent Ybarra MD Nephrology [phone] Patient seen and examined via telemedicine, with the assistance of the bedside RN > 25 min spent in evaluation and mgmt of patient Attestations Medical Necessity Statement*: eval for BJ Coding Level of Care Code Acute Investment Banking Analyst for Maday Shi
[2020-12-10] MEDS: sodium bicarbonate 150 MEQ in dextrose 5% 1,000 ML 75 MEQ IV (10:26)
--- NOTE | 2020-12-10 12:07 | P.PN_ITS ---
Subjective Subjective: Interval history: Patient was seen and examined this morning, no improvement in overall urine output, though she continues to remain euvolemic, no signs of uremia, had a bowel movement this morning. Continue to be on IV fluids.Bicarb drip was started this morning for metabolic acidosis : currently running at 75 cc an hour. Medications: Reviewed: Yes Vitals/I&O/Wt Last Vital Signs Temp 97.6 F 12/10/20 08:00 Pulse 70 12/10/20 11:15 Resp 16 12/10/20 11:15 BP 122/78 12/10/20 11:15 Pulse Ox 95 12/10/20 11:15 12/09/20 12/10/20 12/10/20 22:59 06:59 14:59 Intake Total 1480 / 2577.5 240 / 240 Output Total 150 / 150 125 / 275 Balance 1330 / 2427.5 -125 / 2302.5 240 / 240 Physical Exam Const: COMMON NORMALS: patient oriented x3 HENMT: COMMON NORMALS: normocephalic and atraumatic HEAD & SCALP: normocephalic and atraumatic Resp: COMMON NORMALS: clear to auscultation bilaterally EFFORT & INSPECTION: Yes symmetric chest movement AUSCULTATION: clear to auscultation bilaterally Cardio: COMMON NORMALS: regular rate, regular rhythm, S1 normal heart sound present, S2 normal heart sound present, No gallops present (Cardio), No murmurs present (Cardio), No rub (Cardio) and Peripheral pulses 2+ throughout RATE: regular rate RHYTHM: regular rhythm HEART SOUNDS: S1 normal heart sound present and S2 normal heart sound present PERIPHERAL PULSES: Peripheral pulses 2+ throughout GI: COMMON NORMALS: Normal to inspection, nondistended, normoactive bowel sounds present, Soft to palpation, non-tender, No hepatosplenomegaly present and no masses AUSCULTATION: Yes normoactive bowel sounds PALPATION: Yes Soft to palpation and Yes No hepatosplenomegaly present RECTAL EXAM: deferred Extremity: COMMON NORMALS: no clubbing, cyanosis or edema and no pedal edema Neuro: COMMON NORMALS: patient oriented x3 Urinary Catheter Management^: Carcamo: Cath Placed During This Visit: yes Reason for Continuing Indwelling Catheter: Accurate Measurement of Urinary Output in Critically Ill Patients Urinary Catheter Date of Insertion: 12/08/20 Urinary Catheter Time of Insertion: 02:30 Data : 12/10/20 08:45 12/10/20 08:45 A&P Assessment and plan (1) Acute renal failure: Creatinine up to 4.3 from 1.7 Gentle IV hydration with bicarbonate drip at 75 cc an hour Hold further doses of Bumex for now, hold Entresto. Nephrology consult placed Carcamo catheter in place Monitor urine output No indication for dialysis Status: Acute Qualifiers: Acute renal failure type: unspecified Qualified Code(s): N17.9 - Acute kidney failure, unspecified (2) Peripheral vascular disease: Status post recent intervention balloon angioplasty with stent placement. Continue aspirin Plavix Status: Acute (3) VALE on CPAP: continue CPAP Status: Acute (4) ICD (implantable cardioverter-defibrillator) in place: Status: Acute (5) Cardiomyopathy: Status: Acute Qualifiers: Cardiomyopathy type: dilated Qualified Code(s): I42.0 - Dilated cardiomyopathy (6) CKD (chronic kidney disease): Status: Acute Qualifiers: Chronic kidney disease stage: stage 3 (moderate) Chronic kidney disease stage 3 subtype: stage 3b (GFR 30-44) Qualified Code(s): N18.32 - Chronic kidney disease, stage 3b (7) CHF (congestive heart failure): Status: Acute Qualifiers: Heart failure type: combined systolic and diastolic Heart failure chronicity: chronic Qualified Code(s): I50.42 - Chronic combined systolic (congestive) and diastolic (congestive) heart failure Additional A&P Information DVT prophylaxis: Lovenox Full code Attestations Medical Necessity Statement*: Patient needs to be in hospital for management of acute renal failure. Coding Level of Care Code Acute Airport Electrician for g Fwd Diagnoses Acute renal failure N17.9 Acute renal failure type: unspecified Peripheral vascular disease I73.9 VALE on CPAP G47.33; Z99.89 ICD (implantable cardioverter-defibrillator) in place Z95.810 Cardiomyopathy I42.0 Cardiomyopathy type: dilated CKD (chronic kidney disease) N18.32 Chronic kidney disease stage: stage 3 (moderate) Chronic kidney disease stage 3 subtype: stage 3b (GFR 30-44) CHF (congestive heart failure) I50.42 Heart failure type: combined systolic and diastolic Heart failure chronicity: chronic
--- NOTE | 2020-12-10 17:37 | P.PN_ITS ---
Subjective Subjective: Interval history: The patient is feeling okay. She seems to have started urinating better. Her creatinine is still trending upward but seems to be slow. Denies any unusual shortness of breath. May have a dry cough. No chest pain or palpitations.The vital signs are stable. Patient apparently had a fall yesterday because of unsteady gait. She did not have any intracranial bleed based on the CT of the head. Patient attributes this to the gabapentin. Medications: Reviewed: Yes Medication Review Details: Current Medications Acetaminophen (Acetaminophen 325 Mg Tablet) 650 mg PO Q6H PRN PRN Reason: Mild/Mod Pain Or Temp >/= 101 Aspirin (Aspirin 81 Mg Ec Tablet) 81 mg PO DAILY [facility] Last Admin: 12/10/20 08:22 Dose: Not Given Documented by: Clopidogrel Bisulfate (Clopidogrel 75 Mg Tablet) 75 mg PO DAILY [facility] Last Admin: 12/10/20 08:22 Dose: 75 mg Documented by: Docusate Sodium (Docusate Sodium 100 Mg Capsule) 100 mg PO BID [facility] Last Admin: 12/10/20 08:22 Dose: 100 mg Documented by: Enoxaparin Sodium (Enoxaparin 30 Mg/0.3 Ml Syringe) 30 mg SUBCUT Q24H [facility] Last Admin: 12/10/20 05:07 Dose: 30 mg Documented by: Famotidine (Famotidine 20 Mg Tablet) 40 mg PO BEDTIME [facility] Last Admin: 12/09/20 22:07 Dose: 40 mg Documented by: Gabapentin (Gabapentin 300 Mg Capsule) 300 mg PO BID [facility] Last Admin: 12/10/20 08:22 Dose: 300 mg Documented by: Sodium Bicarbonate 150 meq/ (Dextrose) 1,150 mls @ 75 mls/hr IV .[id number] [facility] Last Admin: 12/10/20 10:26 Dose: 75 mls/hr Documented by: Metoprolol Succinate (Metoprolol Succinate Er (24 Hr) 100 Mg Tablet) 100 mg PO DAILY [facility] Last Admin: 12/10/20 08:22 Dose: 100 mg Documented by: Non-Formulary Medication (Magnesium) 250 mg PO DAILY [facility] Ondansetron HCl (Ondansetron 2 Mg/Ml Sdv 2 Ml) 4 mg IVP Q6H PRN PRN Reason: NAUSEA AND VOMITING Vitals/I&O/Wt Last Vital Signs Temp 97.9 F 12/10/20 16:00 Pulse 76 12/10/20 16:00 Resp 17 12/10/20 16:00 BP 122/65 12/10/20 16:00 Pulse Ox 97 12/10/20 16:00 12/10/20 12/10/20 12/10/20 06:59 14:59 22:59 Intake Total 1720 / 1720 Output Total 125 / 275 350 / 350 Balance -125 / 2302.5 1720 / 1720 -350 / 1370 Physical Exam Narrative: EXAM NARRATIVE: GENERAL: The patient is alert and oriented times three. Not in any acute distress. Moderately obese HEENT: Minimal pallor. No icterus or lymphadenopathy. The pupils are symmetrical in size. Oral cavity: There are no mucous membrane lesions. Funduscopic examination: Fundus is not visualized NECK: Trachea appears to be central. No masses noted. No JVD or thyromegaly appreciated. No carotid bruit. RESPIRATORY: Chest is symmetrical. No intercostals muscle retraction or any accessory muscle activation. There is no chest wall tenderness. Breath sounds are heard bilaterally. No rales or rhonchi heard. No evidence of any consoli dation. BREASTS: Deferred. HEART: The PMI could not be palpated. No palpable precordial events. S1 and S2 are normal. No S3 or S4 heard. No pericardial rub or any click heard. Systolic murmur in the left sternal border. No diastolic murmurs. ABDOMEN: Abdomen is obese . no vessel pulsations or distention. No tenderness. No organomegaly appreciated. No abdominal bruit. Bowel sounds are normally h eard. : Deferred. RECTAL: Deferred. LYMPHATIC: No lymphadenopathy noted in the neck or groin. EXTREMITIES: No edema or cyanosis. Peripheral pulses are weak bilaterally and relatively cold(both feet). MUSCULOSKELETAL: No acute joint deformities or swelling SKIN: There are no significant scars or skin rash noted. NEUROPSYCHIATRIC: The patient is alert and oriented x3. Appears to be in a good mood. The higher functions are grossly within normal limits. No tremors or rigidity noted. Urinary Catheter Management^: Carcamo: Cath Placed During This Visit: yes Reason for Continuing Indwelling Catheter: Accurate Measurement of Urinary Output in Critically Ill Patients Urinary Catheter Date of Insertion: 12/08/20 Urinary Catheter Time of Insertion: 02:30 Data : 12/10/20 08:45 07/20/21 08:45 A&P Assessment and plan (1) Acute kidney injury superimposed on chronic kidney disease: Patient is a BUN/creatinine levels are slowly plateauing. Continue on the careful hydration. Currently she is on sodium bicarb as recommended by the nephrology service. Status: Acute (2) Chronic systolic heart failure: Patient currently has no clinical evidence of any heart failure. We will continue monitoring the respiratory status and the fluid intake output. Status: Acute (3) Peripheral vascular disease: According the patient, her leg pain has significantly improved. The cyanotic discoloration also has improved. We will continue on the current medication for the time being. Status: Acute (4) Cardiac resynchronization therapy defibrillator (RESEARCH SOIL SCIENTIST-D) in place: Device function seems appropriate. We will continue on the current monitoring schedule. Status: Acute (5) Non-ischemic cardiomyopathy: The left ventricular ejection fraction was around 40% by echocardiogram in 2020. We will hold off on the Entresto at this time. Status: Acute Additional A&P Information Her other problems are #1 history of atrial fibrillation, status post radiofrequency ablation, status post watchman device placement. #2. History of CVA involving the posterior circulation; status post TPA; anaphylactic reaction to TPA #3. History of massive GI bleed requiring multiple blood transfusions. History of bleeding gastric ulcer status post cauterization #4 history of essential benign hypertension #5 history of peripheral neuropathy Other problems are as outlined before We will continue with a careful hydration and close monitoring. Watching for the development of any heart failure. The patient's clinical progress, further recommendations will be made. Attestations Medical Necessity Statement*: Patient requires continued hospital stay for close monitoring and further management Coding Level of Care Code Acute Contact And Service Clerks Supervisor for Chg Fwd History Detailed Exam Detailed Medical Decision Making Moderate Complexity Diagnoses Acute kidney injury superimposed on chronic kidney disease N17.9; N18.9 Chronic systolic heart failure I50.22 Peripheral vascular disease I73.9 Cardiac resynchronization therapy defibrillator (RESEARCH SOIL SCIENTIST-D) in place Z95.810 Non-ischemic cardiomyopathy I42.8
--- NOTE | 2020-12-10 18:04 | PC.NURSE ---
patient refused her gabapentin. She thinks that it what is affecting her balance. she said this has happened before. Dr Quiroz notified.
[2020-12-10] MEDS: famotidine 20 mg Tablet 40 MG PO (20:35)
[2020-12-11] VITALS (10 sets, daily range): BP systolic 134–152; BP diastolic 70–94; PULSE 65–70; RESP 13–22; TEMP 36.4–36.8; O2SAT 92–98
--- NOTE | 2020-12-11 01:39 | PC.NURSE ---
Patient has expressed concern about being over medicated causing her short term memory to become fuzzy and confusing. Patient would like to discuss her medications and dosages as she feels this is the result of her dizziness and confusion due to her current condition and kidneys not being able to filter properly. Patient is Alert and Oriented X3. Vital signs WNL.
[2020-12-11] MEDS: sodium bicarbonate 150 MEQ in dextrose 5% 1,000 ML 75 MEQ IV (03:16)
[2020-12-11] MEDS: enoxaparin 30 mg/0.3 mL Syringe SUBCUT (05:52)
[2020-12-11 06:13] LABS: Basophils % 0.2 %; Eosinophils # 0.1 10^3/uL (0.0-0.8); Eosinophils % 0.9 %; Hematocrit 32.4 % (37.0-47.0); Hemoglobin 10.5 g/dL (11.5-15.3); Lymphocytes # 0.4 10^3/uL (0.8-4.8); Lymphocytes % 6.2 %; Mean Corpuscular HGB Conc 32.4 g/dL (30.0-36.0); Mean Corpuscular Hemoglobin 32.6 pg (28.0-34.0); Mean Corpuscular Volume 100.6 fL (81-99); Mean Platelet Volume 11.5 fL (7.4-10.4); Monocytes # 0.6 10^3/uL (0.2-0.9); Monocytes % 10.6 %; Neutrophils # 4.77 10^3/uL (1.8-7.7); Neutrophils % 81.4 %; Nucleated Red Blood Cells % 0 %; Platelet Count 154 10^3/cmm (130-400); Red Blood Count 3.22 10^6/uL (4.1-5.3); Red Cell Distribution Width 13.6 % (12.1-15.1); White Blood Count 5.9 10^3/uL (4.0-10.0)
[2020-12-11 06:28] LABS: Anion Gap 19.7 (5-19); Blood Urea Nitrogen 64 mg/dL (8-23); Calcium 8.4 mg/dL (8.5-10.5); Carbon Dioxide 20 mmol/L (22-29); Chloride 98 mmol/L (98-107); Glucose 130 mg/dL (65-115); Magnesium 2.6 mg/dL (1.7-2.3); Osmolality Calculated 296 mOsm/kg (285-295); Potassium 4.7 mmol/L (3.5-5.1); Sodium 133 mmol/L (136-145)
--- NOTE | 2020-12-11 07:31 | PC.NURSE ---
AM NOTE PT EDUCATED ON NEED TO STAY IN BED AND USE CALL LIGHT - PREVIOUS SHIFT NOTED PT CONTINUOUSLY TRYING TO GET UP PER SELF - BED ALARM SET - PT STATES TO THIS NURSE I DO NOT TRY TO GET OUT OF BED ON MY OWN - WILL MONITOR
--- NOTE | 2020-12-11 08:15 | PC.NURSE ---
Student nurse done a manual blood pressure with a reading of 126/96. Classifier Tender went behind and redone blood pressure with a reading of 144/83.
--- NOTE | 2020-12-11 09:00 | XR_ITS ---
WS: [id number] Portable AP upright chest, 12/11/2020 Clinical Data: increased SOB Comparison: Portable chest, 12/07/2020. Findings: There is minimal patchy opacity in the right lower lobe which could represent atelectasis a nd/or pneumonia. No nodules, masses or effusions are seen. The heart is enlarged. The pulmonary vascu larity is not increased. No pneumothorax is seen. There is a permanent pacemaker unchanged in positio n with the generator overlying the left lateral chest and axilla. XR/XR chest 1V portable [id number] Impression: 1. Minimal patchy opacity in right lower lobe which could indicate pneumonia an d clear atelectasis 2. Cardiomegaly and permanent pacemaker.
--- NOTE | 2020-12-11 09:27 | P.PN_ITS ---
Subjective Subjective: Interval history: When I saw her today, she is complaining of increased shortness of breath and feels like she is getting fluid buildup in her lungs. Chest x-ray performed demonstrates some mild infiltrates in her bases. She denies any peripheral anasarca. Her legs feel comfortable. No uremic symptoms. Urine output is starting to improve in her Carcamo. Medications: Reviewed: Yes Medication Review Details: Current Medications Acetaminophen (Acetaminophen 325 Mg Tablet) 650 mg PO Q6H PRN PRN Reason: Mild/Mod Pain Or Temp >/= 101 Aspirin (Aspirin 81 Mg Ec Tablet) 81 mg PO DAILY [facility] Last Admin: 12/10/20 08:22 Dose: Not Given Documented by: Clopidogrel Bisulfate (Clopidogrel 75 Mg Tablet) 75 mg PO DAILY [facility] Last Admin: 12/10/20 08:22 Dose: 75 mg Documented by: Docusate Sodium (Docusate Sodium 100 Mg Capsule) 100 mg PO BID [facility] Last Admin: 12/10/20 08:22 Dose: 100 mg Documented by: Enoxaparin Sodium (Enoxaparin 30 Mg/0.3 Ml Syringe) 30 mg SUBCUT Q24H [facility] Last Admin: 12/10/20 05:07 Dose: 30 mg Documented by: Famotidine (Famotidine 20 Mg Tablet) 40 mg PO BEDTIME [facility] Last Admin: 12/09/20 22:07 Dose: 40 mg Documented by: Gabapentin (Gabapentin 300 Mg Capsule) 300 mg PO BID [facility] Last Admin: 12/10/20 08:22 Dose: 300 mg Documented by: Sodium Bicarbonate 150 meq/ (Dextrose) 1,150 mls @ 75 mls/hr IV .[id number] [facility] Last Admin: 12/10/20 10:26 Dose: 75 mls/hr Documented by: Metoprolol Succinate (Metoprolol Succinate Er (24 Hr) 100 Mg Tablet) 100 mg PO DAILY [facility] Last Admin: 12/10/20 08:22 Dose: 100 mg Documented by: Non-Formulary Medication (Magnesium) 250 mg PO DAILY [facility] Ondansetron HCl (Ondansetron 2 Mg/Ml Sdv 2 Ml) 4 mg IVP Q6H PRN PRN Reason: NAUSEA AND VOMITING Vitals/I&O/Wt Last Vital Signs Temp 97.6 F 12/11/20 07:57 Pulse 70 12/11/20 07:57 Resp 19 H 12/11/20 07:57 BP 144/83 12/11/20 07:57 Pulse Ox 95 12/11/20 07:57 12/10/20 12/11/20 12/11/20 22:59 06:59 14:59 Intake Total 240 / 1960 1150 / 3110 Output Total 450 / 450 350 / 800 Balance -210 / 1510 800 / 2310 Physical Exam Narrative: EXAM NARRATIVE: Constitutional: Awake, a little uncomfortable HEENT: Wet mucosa, no jvp, non icteric Lungs: Bilaterally basal rales CVS: S1 S2, no murmurs Abdo: Soft, BS ok Ext 4: Minimal edema, peripheral perfusion with no cyanosis Neurological: Grossly non-focal Urinary Catheter Management^: Carcamo: Cath Placed During This Visit: yes Reason for Continuing Indwelling Catheter: Accurate Measurement of Urinary Output in Critically Ill Patients Urinary Catheter Date of Insertion: 12/08/20 Urinary Catheter Time of Insertion: 02:30 Data : 12/11/20 04:51 12/11/20 04:51 A&P Additional A&P Information 1. Acute renal injury Creatinine now improving Consistent with contrast nephropathy No indication for hemodialysis today, although she remains at high risk DC ivf and will give a dose of Lasix Avoid usual nephrotoxic substances Dose medications for GFR less than 50 2. Status post thrombectomy and drug-eluting stent On 12/05 she underwent balloon angioplasty, thrombectomy and nondrug-eluting stent placement in distal tibioperoneal trunk and ostial left anterior tibial vessel for acute limb threatening ischemia for limb salvage On aspirin and Plavix Management per Dr. Max/Lewis 3. Chemistry Bicarb continues to drift down and may be contributing to her SOB. Will hold ivf for now 4. Hemodynamics Blood pressure is soft, but stable. Brent Ybarra MD Nephrology [phone] Patient seen and examined via telemedicine, with the assistance of the bedside RN > 25 min spent in evaluation and mgmt of patient Attestations Medical Necessity Statement*: Eval for BJ Coding Level of Care Code Acute Branch Lending Manager for Maday Shi
--- NOTE | 2020-12-11 09:48 | PC.NURSE ---
Addendum entered by Dayanna Loza RN 12/11/20 09:53: PT REFUSES ASA AND GABAPENTIN - DR CARRIZALES AT SIDE Original Note: AM NOTE PT SEEN BY NEPHROLOGY AND DR GLYNN - ORDERS REC'D -
[2020-12-11] MEDS: docusate sodium 100 mg Capsule PO (09:49)
[2020-12-11] MEDS: metoprolol succinate ER (24 HR) 100 mg Tablet PO (09:49)
[2020-12-11] MEDS: clopidogrel 75 mg Tablet PO (09:49)
[2020-12-11] MEDS: FUROsemide 10 mg/mL SDV 10mL 60 MG IVP (09:50)
--- NOTE | 2020-12-11 11:55 | P.PN_ITS ---
Subjective Subjective: Interval history: Patient was seen and examined this morning, she was complaining of worsening shortness of breath, she has also developed trace bilateral lower extremity pitting edema.Current plan is to stop IV fluids and give her Lasix x1 dose. Medications: Reviewed: Yes Medication Review Details: Current Medications Acetaminophen (Acetaminophen 325 Mg Tablet) 650 mg PO Q6H PRN PRN Reason: Mild/Mod Pain Or Temp >/= 101 Aspirin (Aspirin 81 Mg Ec Tablet) 81 mg PO DAILY [facility] Last Admin: 12/10/20 08:22 Dose: Not Given Documented by: Clopidogrel Bisulfate (Clopidogrel 75 Mg Tablet) 75 mg PO DAILY [facility] Last Admin: 12/10/20 08:22 Dose: 75 mg Documented by: Docusate Sodium (Docusate Sodium 100 Mg Capsule) 100 mg PO BID [facility] Last Admin: 12/10/20 08:22 Dose: 100 mg Documented by: Enoxaparin Sodium (Enoxaparin 30 Mg/0.3 Ml Syringe) 30 mg SUBCUT Q24H [facility] Last Admin: 12/10/20 05:07 Dose: 30 mg Documented by: Famotidine (Famotidine 20 Mg Tablet) 40 mg PO BEDTIME [facility] Last Admin: 12/09/20 22:07 Dose: 40 mg Documented by: Gabapentin (Gabapentin 300 Mg Capsule) 300 mg PO BID [facility] Last Admin: 12/10/20 08:22 Dose: 300 mg Documented by: Sodium Bicarbonate 150 meq/ (Dextrose) 1,150 mls @ 75 mls/hr IV .[id number] [facility] Last Admin: 12/10/20 10:26 Dose: 75 mls/hr Documented by: Metoprolol Succinate (Metoprolol Succinate Er (24 Hr) 100 Mg Tablet) 100 mg PO DAILY [facility] Last Admin: 12/10/20 08:22 Dose: 100 mg Documented by: Non-Formulary Medication (Magnesium) 250 mg PO DAILY [facility] Ondansetron HCl (Ondansetron 2 Mg/Ml Sdv 2 Ml) 4 mg IVP Q6H PRN PRN Reason: NAUSEA AND VOMITING Vitals/I&O/Wt Last Vital Signs Temp 98 F 12/11/20 11:37 Pulse 70 12/11/20 11:37 Resp 20 H 12/11/20 11:37 BP 152/84 12/11/20 11:37 Pulse Ox 95 12/11/20 11:37 12/10/20 12/11/20 12/11/20 22:59 06:59 14:59 Intake Total 240 / 1960 1150 / 3110 600 / 600 Output Total 450 / 450 350 / 800 900 / 900 Balance -210 / 1510 800 / 2310 -300 / -300 Physical Exam Const: COMMON NORMALS: patient oriented x3 HENMT: COMMON NORMALS: normocephalic and atraumatic HEAD & SCALP: normocephalic and atraumatic Chest: CHEST: Yes Symmetrical chest wall rise Resp: COMMON NORMALS: clear to auscultation bilaterally EFFORT & INSPECTION: Yes symmetric chest movement AUSCULTATION: clear to auscultation bilaterally Cardio: COMMON NORMALS: regular rate, regular rhythm, S1 normal heart sound present, S2 normal heart sound present, No gallops present (Cardio), No murmurs present (Cardio), No rub (Cardio) and Peripheral pulses 2+ throughout RATE: regular rate RHYTHM: regular rhythm HEART SOUNDS: S1 normal heart sound present and S2 normal heart sound present PERIPHERAL PULSES: Peripheral pulses 2+ throughout GI: COMMON NORMALS: Normal to inspection, nondistended, normoactive bowel sounds present, Soft to palpation, non-tender, No hepatosplenomegaly present and no masses AUSCULTATION: Yes normoactive bowel sounds PALPATION: Yes Soft to palpation and Yes No hepatosplenomegaly present RECTAL EXAM: deferred Extremity: COMMON NORMALS: no clubbing, cyanosis or edema and no pedal edema Neuro: COMMON NORMALS: patient oriented x3 Urinary Catheter Management^: Carcamo: Cath Placed During This Visit: yes Reason for Continuing Indwelling Catheter: Accurate Measurement of Urinary Ou tput in Critically Ill Patients Urinary Catheter Date of Insertion: 12/08/20 Urinary Catheter Time of Insertion: 02:30 Data : 12/11/20 04:51 12/11/20 04:51 A&P Assessment and plan (1) Acute renal failure: SCR has started to trend down : Admission SCR : 4.4 Current SCR : 3.6 Gentle IV hydration with bicarbonate drip at 75 cc an hour. was stopped today. Hold further doses of Bumex for now, hold Entresto. Nephrology consult placed Carcamo catheter in place Monitor urine output No indication for dialysis Status: Acute Qualifiers: Acute renal failure type: unspecified Qualified Code(s): N17.9 - Acute kidney failure, unspecified (2) Peripheral vascular disease: Status post recent intervention balloon angioplasty with stent placement. Continue aspirin Plavix Status: Acute (3) VALE on CPAP: continue CPAP Status: Acute (4) ICD (implantable cardioverter-defibrillator) in place: Status: Acute (5) Cardiomyopathy: Status: Acute Qualifiers: Cardiomyopathy type: dilated Qualified Code(s): I42.0 - Dilated cardiomyopathy (6) CKD (chronic kidney disease): Status: Acute Qualifiers: Chronic kidney disease stage: stage 3 (moderate) Chronic kidney disease stage 3 subtype: stage 3b (GFR 30-44) Qualified Code(s): N18.32 - Chronic kidney disease, stage 3b (7) CHF (congestive heart failure): Status: Acute Qualifiers: Heart failure type: combined systolic and diastolic Heart failure chronicity: chronic Qualified Code(s): 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 Coding Level of Care Code Acute Hunter Guide for g Fwd Diagnoses Acute renal failure N17.9 Acute renal failure type: unspecified Peripheral vascular disease I73.9 VALE on CPAP G47.33; Z99.89 ICD (implantable cardioverter-defibrillator) in place Z95.810 Cardiomyopathy I42.0 Cardiomyopathy type: dilated CKD (chronic kidney disease) N18.32 Chronic kidney disease stage: stage 3 (moderate) Chronic kidney disease stage 3 subtype: stage 3b (GFR 30-44) CHF (congestive heart failure) I50.42 Heart failure type: combined systolic and diastolic Heart failure chronicity: chronic
--- NOTE | 2020-12-11 13:37 | PC.SOCIAL ---
IMM updated Pg 2 of IMM updated and reviewed with pt. She verbalized an understanding. No questions, copy provided.
[2020-12-11] MEDS: ipratropium-albuterol 3 mL Neb INHALATION ×2 (13:59→20:38)
--- NOTE | 2020-12-11 17:37 | PM.PN ---
Subjective Subjective: Interval history: Patient is feeling shortness of breath creatinine has started improving. Left leg continues to looks good no pain no cramps color is good. Medications: Reviewed: Yes Medication Review Details: Current Medications Acetaminophen (Acetaminophen 325 Mg Tablet) 650 mg PO Q6H PRN PRN Reason: Mild/Mod Pain Or Temp >/= 101 Aspirin (Aspirin 81 Mg Ec Tablet) 81 mg PO DAILY [facility] Last Admin: 12/10/20 08:22 Dose: Not Given Documented by: Clopidogrel Bisulfate (Clopidogrel 75 Mg Tablet) 75 mg PO DAILY [facility] Last Admin: 12/10/20 08:22 Dose: 75 mg Documented by: Docusate Sodium (Docusate Sodium 100 Mg Capsule) 100 mg PO BID [facility] Last Admin: 12/10/20 08:22 Dose: 100 mg Documented by: Enoxaparin Sodium (Enoxaparin 30 Mg/0.3 Ml Syringe) 30 mg SUBCUT Q24H [facility] Last Admin: 12/10/20 05:07 Dose: 30 mg Documented by: Famotidine (Famotidine 20 Mg Tablet) 40 mg PO BEDTIME [facility] Last Admin: 12/09/20 22:07 Dose: 40 mg Documented by: Gabapentin (Gabapentin 300 Mg Capsule) 300 mg PO BID [facility] Last Admin: 12/10/20 08:22 Dose: 300 mg Documented by: Sodium Bicarbonate 150 meq/ (Dextrose) 1,150 mls @ 75 mls/hr IV .[id number] [facility] Last Admin: 12/10/20 10:26 Dose: 75 mls/hr Documented by: Metoprolol Succinate (Metoprolol Succinate Er (24 Hr) 100 Mg Tablet) 100 mg PO DAILY [facility] Last Admin: 12/10/20 08:22 Dose: 100 mg Documented by: Non-Formulary Medication (Magnesium) 250 mg PO DAILY [facility] Ondansetron HCl (Ondansetron 2 Mg/Ml Sdv 2 Ml) 4 mg IVP Q6H PRN PRN Reason: NAUSEA AND VOMITING Vitals/I&O/Wt Last Vital Signs Temp 98.0 F 12/11/20 15:41 Pulse 69 12/11/20 15:41 Resp 17 12/11/20 15:41 BP 139/83 12/11/20 15:41 Pulse Ox 92 12/11/20 15:41 12/11/20 12/11/20 12/11/20 06:59 14:59 22:59 Intake Total 1150 / 3110 960 / 960 Output Total 350 / 800 901 / 901 650 / 1551 Balance 800 / 2310 59 / 59 -650 / -591 Physical Exam Narrative: EXAM NARRATIVE: GENERAL: Patient is alert, awake and oriented x3. Patient is short of breath cannot talk in sentences NECK: No jugular vein distension. HEENT: No cyanosis. No icterus. No pallor. HEART: Regular S1 and S2. No murmur, rub or gallop. LUNGS: Decreased breath sound bilaterally. ABDOMEN: Soft, nontender and nondistended. Positive bowel sounds. No guarding, rebound or tenderness. CENTRAL NERVOUS SYSTEM: Grossly nonfocal. EXTREMITIES: Lower extremities with 1+ edema bilaterally. Urinary Catheter Management^: Carcamo: Cath Placed During This Visit: yes Reason for Continuing Indwelling Catheter: Accurate Measurement of Urinary Output in Critically Ill Patients Urinary Catheter Date of Insertion: 12/08/20 Urinary Catheter Time of Insertion: 02:30 Data : 12/11/20 04:51 12/11/20 04:51 A&P Assessment and plan (1) Acute kidney injury superimposed on chronic kidney disease: Steadily improving. Continue as per nephrology Status: Acute (2) Chronic systolic heart failure: Appear to be decompensated state of heart failure, agree with diuretics Status: Acute (3) Peripheral vascular disease: Appear to be stable peripheral arterial disease perspective left leg appeared to be of normal color warm without any problem Status: Acute (4) Cardiac resynchronization therapy defibrillator (POULTRY HUSBANDRY WORKER-D) in place: No firing. Appeared to be in a good working condition Status: Acute (5) Non-ischemic cardiomyopathy: Once creatinine back to baseline will add Entresto . Status: Acute Additional A&P Information Her other problems are #1 history of atrial fibrillation, status post radiofrequency ablation, status post watchman device placement. #2. History of CVA involving the posterior circulation; status post TPA; anaphylactic reaction to TPA #3. History of massive GI bleed requiring multiple blood transfusions. History of bleeding gastric ulcer status post cauterization #4 history of essential benign hypertension #5 history of peripheral neuropathy Other problems are as outlined before We will continue with a careful hydration and close monitoring. Watching for the development of any heart failure. The patient's clinical progress, further recommendations will be made. Attestations Medical Necessity Statement*: Require continuation hospitalization for above defined care. Coding Level of Care Code Acute Dry Chain Operator for Chg Fwd History Detailed Exam Detailed Medical Decision Making Moderate Complexity Diagnoses Acute kidney injury superimposed on chronic kidney disease N17.9; N18.9 Chronic systolic heart failure I50.22 Peripheral vascular disease I73.9 Cardiac resynchronization therapy defibrillator (POULTRY HUSBANDRY WORKER-D) in place Z95.810 Non-ischemic cardiomyopathy I42.8
[2020-12-11] MEDS: famotidine 20 mg Tablet 40 MG PO (20:21)
[2020-12-12] VITALS (12 sets, daily range): BP systolic 138–154; BP diastolic 58–88; PULSE 67–74; RESP 16–22; TEMP 36.4–37.1; O2SAT 92–97
[2020-12-12] MEDS: ipratropium-albuterol 3 mL Neb INHALATION ×4 (02:05→21:18)
[2020-12-12] MEDS: enoxaparin 30 mg/0.3 mL Syringe SUBCUT (04:00)
[2020-12-12] MEDS: docusate sodium 100 mg Capsule PO ×2 (08:51→18:21)
[2020-12-12] MEDS: clopidogrel 75 mg Tablet PO (08:51)
[2020-12-12] MEDS: metoprolol succinate ER (24 HR) 100 mg Tablet PO (08:51)
--- NOTE | 2020-12-12 08:53 | PC.NURSE ---
Patient refused aspirin because of her history of bleeds and it hurts her stomach. Refused the gabapentin due to it effecting her balance and her fall the other night.
[2020-12-12] MEDS: FUROsemide 10 mg/mL SDV 4mL 40 MG IVP (10:14)
[2020-12-12] MEDS: cefTRIAXone 1,000 MG in sodium chloride 0.9% (plus) 50 ML 100 MG IV (10:14)
--- NOTE | 2020-12-12 10:46 | P.PN_ITS ---
Subjective Subjective: Interval history: Patient is sleeping and laying flat on the bed. I did not wake her up. By examination on inspiration lung sounds fairly well with good air entry. Medications: Reviewed: Yes Medication Review Details: Current Medications Acetaminophen (Acetaminophen 325 Mg Tablet) 650 mg PO Q6H PRN PRN Reason: Mild/Mod Pain Or Temp >/= 101 Aspirin (Aspirin 81 Mg Ec Tablet) 81 mg PO DAILY [facility] Last Admin: 12/10/20 08:22 Dose: Not Given Documented by: Clopidogrel Bisulfate (Clopidogrel 75 Mg Tablet) 75 mg PO DAILY [facility] Last Admin: 12/10/20 08:22 Dose: 75 mg Documented by: Docusate Sodium (Docusate Sodium 100 Mg Capsule) 100 mg PO BID [facility] Last Admin: 12/10/20 08:22 Dose: 100 mg Documented by: Enoxaparin Sodium (Enoxaparin 30 Mg/0.3 Ml Syringe) 30 mg SUBCUT Q24H [facility] Last Admin: 12/10/20 05:07 Dose: 30 mg Documented by: Famotidine (Famotidine 20 Mg Tablet) 40 mg PO BEDTIME [facility] Last Admin: 12/09/20 22:07 Dose: 40 mg Documented by: Gabapentin (Gabapentin 300 Mg Capsule) 300 mg PO BID [facility] Last Admin: 12/10/20 08:22 Dose: 300 mg Documented by: Sodium Bicarbonate 150 meq/ (Dextrose) 1,150 mls @ 75 mls/hr IV .[id number] [facility] Last Admin: 12/10/20 10:26 Dose: 75 mls/hr Documented by: Metoprolol Succinate (Metoprolol Succinate Er (24 Hr) 100 Mg Tablet) 100 mg PO DAILY [facility] Last Admin: 12/10/20 08:22 Dose: 100 mg Documented by: Non-Formulary Medication (Magnesium) 250 mg PO DAILY [facility] Ondansetron HCl (Ondansetron 2 Mg/Ml Sdv 2 Ml) 4 mg IVP Q6H PRN PRN Reason: NAUSEA AND VOMITING Vitals/I&O/Wt Last Vital Signs Temp 97.6 F 12/12/20 07:43 Pulse 71 12/12/20 08:42 Resp 20 H 12/12/20 08:42 BP 148/88 12/12/20 07:43 Pulse Ox 92 12/12/20 08:42 12/11/20 12/12/20 12/12/20 22:59 06:59 14:59 Intake Total 240 / 1200 480 / 1680 170 / 170 Output Total 650 / 1551 750 / 2301 Balance -410 / -351 -270 / -621 170 / 170 Physical Exam Narrative: EXAM NARRATIVE: GENERAL: Patient is resting and sleeping NECK: No jugular vein distension. HEENT: No cyanosis. No icterus. No pallor. HEART: Regular S1 and S2. No murmur, rub or gallop. LUNGS: Clear to sound bilaterally. ABDOMEN: Soft, nontender and nondistended. Positive bowel sounds. No guarding, rebound or tenderness. CENTRAL NERVOUS SYSTEM: Grossly nonfocal. EXTREMITIES: Lower extremities without edema bilaterally. Urinary Catheter Management^: Carcamo: Cath Placed During This Visit: yes Reason for Continuing Indwelling Catheter: Other Urinary Catheter Date of Insertion: 12/08/20 Urinary Catheter Time of Insertion: 02:30 Data : 12/11/20 04:51 12/11/20 04:51 A&P Assessment and plan (1) Acute kidney injury superimposed on chronic kidney disease: Today labs are pending. Was improving steadily. Status: Acute (2) Chronic systolic heart failure: Improving now. Agree with 40 mg of IV Lasix as suggested by medicine and nephrology Status: Acute (3) Peripheral vascular disease: Limb perfusion appears to be adequate Status: Acute (4) Cardiac resynchronization therapy defibrillator (FRETTED STRING INSTRUMENT REPAIRER-D) in place: No firing. Status: Acute (5) Non-ischemic cardiomyopathy: Continue diuretics as above. Once back to baseline around 1.6 of creatinine we will add Entresto back Status: Acute Additional A&P Information Her other problems are #1 history of atrial fibrillation, status post radiofrequency ablation, status post watchman device placement. #2. History of CVA involving the posterior circulation; status post TPA; anaphylactic reaction to TPA #3. History of massive GI bleed requiring multiple blood transfusions. History of bleeding gastric ulcer status post cauterization #4 history of essential benign hypertension #5 history of peripheral neuropathy Other problems are as outlined before We will continue with a careful hydration and close monitoring. Watching for the development of any heart failure. The patient's clinical progress, further recommendations will be made. Attestations Medical Necessity Statement*: Patient require continuation hospitalization for above defined care. Coding Level of Care Code Acute Retail Operations Specialist for [facility] Fwd Diagnoses Acute kidney injury superimposed on chronic kidney disease N17.9; N18.9 Chronic systolic heart failure I50.22 Peripheral vascular disease I73.9 Cardiac resynchronization therapy defibrillator (FRETTED STRING INSTRUMENT REPAIRER-D) in place Z95.810 Non-ischemic cardiomyopathy I42.8
--- NOTE | 2020-12-12 12:24 | PM.PN ---
Subjective Subjective: Interval history: feels better Medications: Reviewed: Yes Vitals/I&O/Wt Last Vital Signs Temp 97.9 F 12/12/20 11:06 Pulse 70 12/12/20 11:06 Resp 16 12/12/20 11:06 BP 141/58 12/12/20 11:06 Pulse Ox 95 12/12/20 11:06 12/11/20 12/12/20 12/12/20 22:59 06:59 14:59 Intake Total 240 / 1200 480 / 1680 170 / 170 Output Total 650 / 1551 750 / 2301 Balance -410 / -351 -270 / -621 170 / 170 Physical Exam Const: COMMON NORMALS: alert GENERAL APPEARANCE: cooperative Extremity: GENERAL: No edema Neuro: SENSORIUM/ORIENTATION: Yes alert Urinary Catheter Management^: Patterson: Cath Placed During This Visit: yes Reason for Continuing Indwelling Catheter: Other Urinary Catheter Date of Insertion: 12/08/20 Urinary Catheter Time of Insertion: 02:30 Data : 12/11/20 04:51 12/11/20 04:51 A&P Additional A&P Information 1. Acute kidney injury, contrast-induced, nonoliguric, BUN/Cr slowly improving 2. Mild hyponatremia, stable Recommend: okay to remove patterson catheter. Repeat labs tomorrow Attestations Medical Necessity Statement*: see above Time Spent in Patient Care: 16 - 35 minutes Coding Level of Care Code Acute Nozzle Tender for Maday Shi
--- NOTE | 2020-12-12 17:12 | P.PN_ITS ---
Subjective Subjective: Interval history: Patient continued to complain of of shortness of breath. Medications: Reviewed: Yes Medication Review Details: Current Medications Acetaminophen (Acetaminophen 325 Mg Tablet) 650 mg PO Q6H PRN PRN Reason: Mild/Mod Pain Or Temp >/= 101 Aspirin (Aspirin 81 Mg Ec Tablet) 81 mg PO DAILY [facility] Last Admin: 12/10/20 08:22 Dose: Not Given Documented by: Clopidogrel Bisulfate (Clopidogrel 75 Mg Tablet) 75 mg PO DAILY [facility] Last Admin: 12/10/20 08:22 Dose: 75 mg Documented by: Docusate Sodium (Docusate Sodium 100 Mg Capsule) 100 mg PO BID [facility] Last Admin: 12/10/20 08:22 Dose: 100 mg Documented by: Enoxaparin Sodium (Enoxaparin 30 Mg/0.3 Ml Syringe) 30 mg SUBCUT Q24H [facility] Last Admin: 12/10/20 05:07 Dose: 30 mg Documented by: Famotidine (Famotidine 20 Mg Tablet) 40 mg PO BEDTIME [facility] Last Admin: 12/09/20 22:07 Dose: 40 mg Documented by: Gabapentin (Gabapentin 300 Mg Capsule) 300 mg PO BID [facility] Last Admin: 12/10/20 08:22 Dose: 300 mg Documented by: Sodium Bicarbonate 150 meq/ (Dextrose) 1,150 mls @ 75 mls/hr IV .[id number] [facility] Last Admin: 12/10/20 10:26 Dose: 75 mls/hr Documented by: Metoprolol Succinate (Metoprolol Succinate Er (24 Hr) 100 Mg Tablet) 100 mg PO DAILY [facility] Last Admin: 12/10/20 08:22 Dose: 100 mg Documented by: Non-Formulary Medication (Magnesium) 250 mg PO DAILY [facility] Ondansetron HCl (Ondansetron 2 Mg/Ml Sdv 2 Ml) 4 mg IVP Q6H PRN PRN Reason: NAUSEA AND VOMITING Vitals/I&O/Wt Last Vital Signs Temp 97.7 F 12/12/20 15:46 Pulse 69 12/12/20 15:46 Resp 18 12/12/20 15:46 BP 138/83 12/12/20 15:46 Pulse Ox 95 12/12/20 15:46 12/12/20 12/12/20 12/12/20 06:59 14:59 22:59 Intake Total 480 / 1680 410 / 410 Output Total 750 / 2301 Balance -270 / -621 410 / 410 Physical Exam Const: COMMON NORMALS: patient oriented x3 HENMT: COMMON NORMALS: normocephalic and atraumatic HEAD & SCALP: normocephalic and atraumatic Chest: CHEST: Yes Symmetrical chest wall rise Resp: EFFORT & INSPECTION: Yes symmetric chest movement OTHER: Bilateral diminished air entry, bilateral crackles in both lung chacon prominently at bases. Cardio: COMMON NORMALS: regular rate, regular rhythm, S1 normal heart sound present, S2 normal heart sound present, No gallops present (Cardio), No murmurs present (Cardio), No rub (Cardio) and Peripheral pulses 2+ throughout RATE: regular rate RHYTHM: regular rhythm HEART SOUNDS: S1 normal heart sound p resent and S2 normal heart sound present PERIPHERAL PULSES: Peripheral pulses 2+ throughout GI: COMMON NORMALS: Normal to inspection, nondistended, normoactive bowel sounds present, Soft to palpation, non-tender, No hepatosplenomegaly present and no masses AUSCULTATION: Yes normoactive bowel sounds PALPATION: Yes Soft to palpation and Yes No hepatosplenomegaly present RECTAL EXAM: deferred Extremity: COMMON NORMALS: no clubbing, cyanosis or edema and no pedal edema Neuro: COMMON NORMALS: patient oriented x3 Urinary Catheter Management^: Carcamo: Cath Placed During This Visit: yes Reason for Continuing Indwelling Catheter: Other Urinary Catheter Date of Insertion: 12/08/20 Urinary Catheter Time of Insertion: 02:30 Data : 12/11/20 04:51 12/11/20 04:51 A&P Assessment and plan (1) Acute renal failure: SCR has started to trend down : Admission SCR : 4.4 Current SCR : 3.6 Gentle IV hydration with bicarbonate drip at 75 cc an hour. was stopped today. Currently has received lasix 40 I.V Nephrology on board Carrdiology on board Carcamo catheter in place Monitor urine output No indication for dialysis Status: Acute Qualifiers: Acute renal failure type: unspecified Qualified Code(s): N17.9 - Acute kidney failure, unspecified (2) Pneumonia: Minimal patchy opacity in right lower lobe. Complaining of worsening shortness of breath Started on ceftriaxone 1 g IV daily. 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 Continue aspirin Plavix Status: Acute (5) VALE on CPAP: continue CPAP Status: Acute (6) ICD (implantable cardioverter-defibrillator) in place: Status: Acute (7) Cardiomyopathy: Status: Acute Qualifiers: Cardiomyopathy type: dilated Qualified Code(s): I42.0 - Dilated cardiomyopathy (8) CKD (chronic kidney disease): Status: Acute Qualifiers: Chronic kidney disease stage: stage 3 (moderate) Chronic kidney disease stage 3 subtype: stage 3b (GFR 30-44) Qualified Code(s): N18.32 - Chronic kidne y disease, stage 3b Additional A&P Information DVT prophylaxis: Lovenox Full code Attestations Medical Necessity Statement*: Patient needs to be in the hospital for manage ment of BJ, pneumonia Coding Level of Care Code 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
[2020-12-12] MEDS: acetaminophen 325 mg Tablet 650 MG PO (18:21)
--- NOTE | 2020-12-12 20:50 | ECG_ITS ---
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 Measurements Intervals Roach Rate: 70 P: -52 MD: 179 QRS: -85 QRSD: 198 T: 93 QT: 524 QTc: 566 Interpretive Statements ELECTRONIC ATRIAL PACEMAKER ELECTRONIC VENTRICULAR PACEMAKER ABNORMAL RHYTHM ECG Compared to ECG 12/07/2020 22:08:50 No significant changes Electronically Signed On 12-15-2020 18:34:19 CDT by Patricia Marshall M.D. [id number]
--- NOTE | 2020-12-12 20:51 | PC.NURSE ---
patient c/o chest pain, vs 145/80, 97.6, 70, 22, 95% in room air, 02 placed at 2 lp, call placed to Aneta Patel, 12 lead EKG ordered
[2020-12-12] MEDS: famotidine 20 mg Tablet 40 MG PO (22:12)
[2020-12-13] VITALS (12 sets, daily range): BP systolic 144–166; BP diastolic 75–86; PULSE 62–88; RESP 16–22; TEMP 36.4–36.7; O2SAT 88–96
[2020-12-13] MEDS: gabapentin 300 mg Capsule PO ×2 (01:14→09:42)
[2020-12-13] MEDS: ipratropium-albuterol 3 mL Neb INHALATION ×3 (02:04→21:58)
[2020-12-13] MEDS: enoxaparin 30 mg/0.3 mL Syringe SUBCUT (05:11)
[2020-12-13] MEDS: ondansetron 2 mg/ML SDV 2 mL 4 MG IVP (05:21)
[2020-12-13 06:34] LABS: Glucose Point of Care 160 mg/dL (70-110)
--- NOTE | 2020-12-13 09:30 | PC.NURSE ---
Confusion Notified Dr. Quiroz of patient's confusion. New onset of this per . He states the patient has been increasingly confused over the last 1-2 days. She is alert to self only - does not know her . Patient states she is in [place], rambles about things without flow of thought. Per Dr. Quiroz - calixto patterson, wait for lab results from AM labs, continue to monitor for improvement.
[2020-12-13] MEDS: clopidogrel 75 mg Tablet PO (09:41)
[2020-12-13] MEDS: aspirin 81 mg EC Tablet PO (09:41)
[2020-12-13] MEDS: metoprolol succinate ER (24 HR) 100 mg Tablet PO (09:42)
[2020-12-13] MEDS: docusate sodium 100 mg Capsule PO ×2 (09:42→18:48)
[2020-12-13] MEDS: cefTRIAXone 1,000 MG in sodium chloride 0.9% (plus) 50 ML 100 MG IV (09:43)
[2020-12-13 09:51] LABS: Basophils % 0.5 %; Eosinophils % 0.2 %; Hematocrit 35.1 % (37.0-47.0); Hemoglobin 11.3 g/dL (11.5-15.3); Lymphocytes # 0.6 10^3/uL (0.8-4.8); Lymphocytes % 7.7 %; Mean Corpuscular HGB Conc 32.2 g/dL (30.0-36.0); Mean Corpuscular Hemoglobin 32.7 pg (28.0-34.0); Mean Corpuscular Volume 101.4 fL (81-99); Mean Platelet Volume 11.5 fL (7.4-10.4); Monocytes # 0.8 10^3/uL (0.2-0.9); Monocytes % 9.9 %; Neutrophils # 6.57 10^3/uL (1.8-7.7); Neutrophils % 81.2 %; Nucleated Red Blood Cells % 0 %; Platelet Count 225 10^3/cmm (130-400); Red Blood Count 3.46 10^6/uL (4.1-5.3); White Blood Count 8.1 10^3/uL (4.0-10.0)
[2020-12-13 10:13] LABS: Alanine Aminotransferase 15 U/L (0-33); Albumin Level 3.6 g/dL (3.5-5.2); Alkaline Phosphatase 175 IU/L (35-105); Anion Gap 19.7 (5-19); Aspartate Amino Transferase 19 U/L (0-32); Blood Urea Nitrogen 51 mg/dL (8-23); Calcium 8.8 mg/dL (8.5-10.5); Carbon Dioxide 21 mmol/L (22-29); Chloride 100 mmol/L (98-107); Globulin 2.9 g/dL (1.3-4.6); Glucose 125 mg/dL (65-115); Osmolality Calculated 297 mOsm/kg (285-295); Potassium 4.7 mmol/L (3.5-5.1); Sodium 136 mmol/L (136-145); Total Bilirubin 1.1 mg/dL (0.15-1.2); Total Protein 6.5 g/dL (6.6-8.7)
--- NOTE | 2020-12-13 11:03 | P.PN_ITS ---
Subjective Subjective: Interval history: Patient was slightly confused today, likely hospital acquired delirium. Serum creatinine and BUN is improving. Still complaining of shortness of breath. Currently see 6.6 Ls positive. Medications: Reviewed: Yes Medication Review Details: Current Medications Acetaminophen (Acetaminophen 325 Mg Tablet) 650 mg PO Q6H PRN PRN Reason: Mild/Mod Pain Or Temp >/= 101 Aspirin (Aspirin 81 Mg Ec Tablet) 81 mg PO DAILY [facility] Last Admin: 12/10/20 08:22 Dose: Not Given Documented by: Clopidogrel Bisulfate (Clopidogrel 75 Mg Tablet) 75 mg PO DAILY [facility] Last Admin: 12/10/20 08:22 Dose: 75 mg Documented by: Docusate Sodium (Docusate Sodium 100 Mg Capsule) 100 mg PO BID [facility] Last Admin: 12/10/20 08:22 Dose: 100 mg Documented by: Enoxaparin Sodium (Enoxaparin 30 Mg/0.3 Ml Syringe) 30 mg SUBCUT Q24H [facility] Last Admin: 12/10/20 05:07 Dose: 30 mg Documented by: Famotidine (Famotidine 20 Mg Tablet) 40 mg PO BEDTIME [facility] Last Admin: 12/09/20 22:07 Dose: 40 mg Documented by: Gabapentin (Gabapentin 300 Mg Capsule) 300 mg PO BID [facility] Last Admin: 12/10/20 08:22 Dose: 300 mg Documented by: Sodium Bicarbonate 150 meq/ (Dextrose) 1,150 mls @ 75 mls/hr IV .[id number] [facility] Last Admin: 12/10/20 10:26 Dose: 75 mls/hr Documented by: Metoprolol Succinate (Metoprolol Succinate Er (24 Hr) 100 Mg Tablet) 100 mg PO DAILY [facility] Last Admin: 12/10/20 08:22 Dose: 100 mg Documented by: Non-Formulary Medication (Magnesium) 250 mg PO DAILY [facility] Ondansetron HCl (Ondansetron 2 Mg/Ml Sdv 2 Ml) 4 mg IVP Q6H PRN PRN Reason: NAUSEA AND VOMITING Vitals/I&O/Wt Last Vital Signs Temp 97.7 F 12/13/20 08:00 Pulse 70 12/13/20 09:29 Resp 20 H 12/13/20 09:19 BP 149/83 12/13/20 08:00 Pulse Ox 92 12/13/20 09:19 12/12/20 12/13/2012/13/21 22:59 06:59 14:59 Intake Total 300 / 710 50 / 50 Output Total 1000 / 1000 575 / 1575 Balance -1000 / -590 -275 / -865 50 / 50 Physical Exam Const: COMMON NORMALS: patient oriented x3 HENMT: COMMON NORMALS: normocephalic and atraumatic HEAD & SCALP: normocephalic and atraumatic Chest: CHEST: Yes Symmetrical chest wall rise Resp: COMMON NORMALS: clear to auscultation bilaterally EFFORT & INSPECTION: Yes symmetric chest movement AUSCULTATION: clear to auscultation bilaterally OTHER: Bilateral diminished air entry, bilateral crackles in both lung chacon prominently at bases. Cardio: COMMON NORMALS: regular rate, regular rhythm, S1 normal heart sound present, S2 normal heart sound present, No gallops present (Cardio), No murmurs present (Cardio), No rub (Cardio) and Peripheral pulses 2+ throughout RATE: regular rate RHYTHM: regular rhythm HEART SOUNDS: S1 normal heart sound pr esent and S2 normal heart sound present PERIPHERAL PULSES: Peripheral pulses 2+ throughout GI: COMMON NORMALS: Normal to inspection, nondistended, normoactive bowel sounds present, Soft to palpation, non-tender, No hepatosplenomegaly present and no masses AUSCULTATION: Yes normoactive bowel sounds PALPATION: Yes Soft to palpation and Yes No hepatosplenomegaly present RECTAL EXAM: deferred Extremity: COMMON NORMALS: no clubbing, cyanosis or edema and no pedal edema Neuro: COMMON NORMALS: patient oriented x3 Urinary Catheter Management^: Carcamo: Cath Placed During This Visit: yes, but has since been removed by the nurse Reason for Continuing Indwelling Catheter: Other Urinary Catheter Date of Insertion: 12/13/20 Urinary Catheter Time of Insertion: 07:00 Date Urinary Catheter Removed: 12/13/20 Time Urinary Catheter Discontinued: 06:30 Data : 12/13/20 08:39 12/13/20 08:39 A&P Assessment and plan (1) Acute renal failure: SCR has started to trend down : Admission SCR : 4.4 Current SCR : 3.6 Gentle IV hydration with bicarbonate drip at 75 cc an hour. was stopped today. Currently has received lasix 40 I.V Nephrology on board Carrdiology on board Carcamo catheter in place Monitor urine output No indication for dialysis Status: Acute Qualifiers: Acute renal failure type: unspecified Qualified Code(s): N17.9 - Acute kidney failure, unspecified (2) Pneumonia: Minimal patchy opacity in right lower lobe. Complaining of worsening shortness of breath Started on ceftriaxone 1 g IV daily. Status: Acute (3) CHF (congestive heart failure): Heart failure with reduced ejection fraction. Currently on Lasix 40 mg IV twice daily Monitor intake output Daily weight Status: Acute Qualifiers: Heart failure type: combined systolic and diastolic Heart failure chronicity: chronic Qualified Code(s): I50.42 - Chronic combined systolic (congestive) and diastolic (congestive) heart failure (4) Peripheral vascular disease: Status post recent intervention balloon angioplasty with stent placement. Continue aspirin Plavix Status: Acute (5) VALE on CPAP: continue CPAP Status: Acute (6) ICD (implantable cardioverter-defibrillator) in place: Status: Acute (7) Cardiomyopathy: Status: Acute Qualifiers: Cardiomyopathy type: dilated Qualified Code(s): I42.0 - Dilated cardiomyopathy (8) CKD (chronic kidney disease): Status: Acute Qualifiers: Chronic kidney disease stage: stage 3 (moderate) Chronic kidney disease stage 3 subtype: stage 3b (GFR 30-44) Qualified Code(s): N18.32 - Chronic kidney disease, stage 3b Additional A&P Information DVT prophylaxis: Lovenox Full code Attestations Medical Necessity Statement*: Patient is to be in hospital for management of acute kidney injury, pneumonia. 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
[2020-12-13] MEDS: FUROsemide 10 mg/mL SDV 4mL 40 MG IVP ×2 (11:56→20:02)
--- NOTE | 2020-12-13 12:39 | PC.SOCIAL ---
IMM Updated Updated pt's family on Pg 2 IMM. No questions voiced. Provided pt/family a copy. Initialed, dated, & timed copy in chart.
--- NOTE | 2020-12-13 14:08 | P.PN_ITS ---
Subjective Subjective: Interval history: she reports back pain Medications: Reviewed: Yes Vitals/I&O/Wt Last Vital Signs Temp 97.6 F 12/13/20 12:00 Pulse 69 12/13/20 12:00 Resp 18 12/13/20 12:00 BP 144/86 12/13/20 12:00 Pulse Ox 96 12/13/20 12:00 12/12/20 12/13/20 12/13/20 22:59 06:59 14:59 Intake Total 300 / 710 170 / 170 Output Total 1000 / 1000 575 / 1575 200 / 200 Balance -1000 / -590 -275 / -865 -30 / -30 Physical Exam Const: COMMON NORMALS: no acute distress GENERAL APPEARANCE: cooperative Urinary Catheter Management^: Carcamo: Cath Placed During This Visit: yes, but has since been removed by the nurse Reason for Continuing Indwelling Catheter: Other Urinary Catheter Date of Insertion: 12/13/20 Urinary Catheter Time of Insertion: 07:00 Date Urinary Catheter Removed: 12/13/20 Time Urinary Catheter Discontinued: 06:30 Data : 12/13/20 08:39 12/13/20 08:39 A&P Additional A&P Information 1. Acute kidney injury, contrast-induced, nonoliguric, BUN/Cr improving 2. Mild hyponatremia, resolved Recommend: no new recommendations. 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
--- NOTE | 2020-12-13 16:00 | PC.NURSE ---
Persistent Confusion Notified Dr. Quiroz that new onset confusion has not improved over the course of the day. Verbal order was received for ABG then verbally retracted. Discussed patient had recent fall this hospital stay on 12/10 and was reported to have hit her head. CT was reported negative. Notified that she is on ASA 81mg, 30mg Lovenox, and Plavix 75mg. No new orders received. He states he would come to floor to see patient.
--- NOTE | 2020-12-13 17:26 | PC.NURSE ---
Confusion Notified Dr. Quiroz of patient's confusion. New onset per . He states the patient has been increasingly confused over the last 1-2 days. She is alert to self only - does not know her . Patient states she is in [place], rambles about things without flow of thought. Per Dr. Quiroz - calixto patterson, wait for lab results from AM labs, continue to monitor for improvement.
--- NOTE | 2020-12-13 17:58 | PC.NURSE ---
Rounding with physician Dr. Quiroz came to see patient. He did not express any concerns with her onset of confusion at this time. He states no repeat CT is needed at this time. Will monitor.
[2020-12-13] MEDS: ferrous sulfate EC 325 mg Tablet PO (18:48)
--- NOTE | 2020-12-13 19:31 | PM.PN ---
Subjective Subjective: Interval history: Patient appeared to be confused. She is volume overloaded Medications: Reviewed: Yes Medication Review Details: Current Medications Acetaminophen (Acetaminophen 325 Mg Tablet) 650 mg PO Q6H PRN PRN Reason: Mild/Mod Pain Or Temp >/= 101 Aspirin (Aspirin 81 Mg Ec Tablet) 81 mg PO DAILY [facility] Last Admin: 12/10/20 08:22 Dose: Not Given Documented by: Clopidogrel Bisulfate (Clopidogrel 75 Mg Tablet) 75 mg PO DAILY [facility] Last Admin: 12/10/20 08:22 Dose: 75 mg Documented by: Docusate Sodium (Docusate Sodium 100 Mg Capsule) 100 mg PO BID [facility] Last Admin: 12/10/20 08:22 Dose: 100 mg Documented by: Enoxaparin Sodium (Enoxaparin 30 Mg/0.3 Ml Syringe) 30 mg SUBCUT Q24H [facility] Last Admin: 12/10/20 05:07 Dose: 30 mg Documented by: Famotidine (Famotidine 20 Mg Tablet) 40 mg PO BEDTIME [facility] Last Admin: 12/09/20 22:07 Dose: 40 mg Documented by: Gabapentin (Gabapentin 300 Mg Capsule) 300 mg PO BID [facility] Last Admin: 12/10/20 08:22 Dose: 300 mg Documented by: Sodium Bicarbonate 150 meq/ (Dextrose) 1,150 mls @ 75 mls/hr IV .[id number] [facility] Last Admin: 12/10/20 10:26 Dose: 75 mls/hr Documented by: Metoprolol Succinate (Metoprolol Succinate Er (24 Hr) 100 Mg Tablet) 100 mg PO DAILY [facility] Last Admin: 12/10/20 08:22 Dose: 100 mg Documented by: Non-Formulary Medication (Magnesium) 250 mg PO DAILY [facility] Ondansetron HCl (Ondansetron 2 Mg/Ml Sdv 2 Ml) 4 mg IVP Q6H PRN PRN Reason: NAUSEA AND VOMITING Vitals/I&O/Wt Last Vital Signs Temp 97.5 F L 12/13/20 16:00 Pulse 75 12/13/20 16:00 Resp 18 12/13/20 16:00 BP 145/79 12/13/20 16:00 Pulse Ox 93 12/13/20 16:00 12/13/20 12/13/20 12/13/20 06:59 14:59 22:59 Intake Total 300 / 710 170 / 170 240 / 410 Output Total 575 / 1575 200 / 200 550 / 750 Balance -275 / -865 -30 / -30 -310 / -340 Physical Exam Narrative: EXAM NARRATIVE: GENERAL: Patient is awake but slightly confused NECK: No jugular vein distension. HEENT: No cyanosis. No icterus. No pallor. HEART: Regular S1 and S2. No murmur, rub or gallop. LUNGS: Inspiratory crackles with prolonged expiration bilaterally. ABDOMEN: Soft, nontender and nondistended. Positive bowel sounds. No guarding, rebound or tenderness. CENTRAL NERVOUS SYSTEM: Grossly nonfocal. EXTREMITIES: Lower extremities without edema bilaterally. Both legs are warm moist with pinkish color Urinary Catheter Management^: Carcamo: Cath Placed During This Visit: yes, but has since been removed by the nurse Reason for Continuing Indwelling Catheter: Other Urinary Catheter Date of Insertion: 12/13/20 Urinary Catheter Time of Insertion: 07:00 Date Urinary Catheter Removed: 12/13/20 Time Urinary Catheter Discontinued: 06:30 Data : 12/13/20 08:39 12/13/20 08:39 A&P Assessment and plan (1) Acute kidney injury superimposed on chronic kidney disease: Today labs are pending. Was improving steadily. Status: Acute (2) Chronic systolic heart failure: Continues to be in systolic heart I will increase Lasix to 40 mg twice a day Status: Acute (3) Peripheral vascular disease: Limb perfusion appears to be adequate Status: Acute (4) Cardiac resynchronization therapy defibrillator (INSTRUCTOR PROGRAMMABLE CONTROLLERS-D) in place: No firing. Status: Acute (5) Non-ischemic cardiomyopathy: Continue diuretics as above. Status: Acute (6) Confusion: Could be multifactorial and heart failure. We will continue to diurese advised light therapy by sitting at window Status: Acute Additional A&P Information Her other problems are #1 history of atrial fibrillation, status post radiofrequency ablation, status post watchman device placement. #2. History of CVA involving the posterior circulation; status post TPA; anaphylactic reaction to TPA #3. History of massive GI bleed requiring multiple blood transfusions. History of bleeding gastric ulcer status post cauterization #4 history of essential benign hypertension #5 history of peripheral neuropathy Other problems are as outlined before We will continue with a careful hydration and close monitoring. Watching for the development of any heart failure. The patient's clinical progress, further recommendations will be made. Attestations Medical Necessity Statement*: Patient require continuation hospitalization for above defined care. 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
[2020-12-13 20:13] LABS: Glucose Urine UA Norm (Normal); Ketones Urine Negative (Negative); Protein Urine Neg (Negative); Specific Gravity, Urine 1.015 (1.005-1.030); Urine Appearance Hazy (CLEAR); Urine Color Yellow (Yellow); pH Urine 5 (5-7)
[2020-12-13 20:14] LABS: Add Urine Microscopic? YES; Bilirubin Urine Neg (Negative); Blood Urine 3+ (Negative); Leukocyte Esterase Urine Trace (Negative); Nitrate Urine Negative (Negative); Urobilinogen Urine Norm (Negative)
[2020-12-13] MEDS: famotidine 20 mg Tablet 40 MG PO (20:23)
[2020-12-13 20:25] LABS: RBC Urine >100 /hpf (0-2)
[2020-12-13 20:26] LABS: Add Urine Culture? Yes; Bacteria Urine 2+ /hpf; Squamous Epithelial Cell Urine 0-4 /hpf (0-5); WBC Urine 0-4 /hpf (0-5)
[2020-12-14] VITALS (8 sets, daily range): BP systolic 144–151; BP diastolic 68–83; PULSE 69–78; RESP 16–20; TEMP 36.4–36.6; O2SAT 86–95
[2020-12-14] MEDS: enoxaparin 30 mg/0.3 mL Syringe SUBCUT (04:27)
--- NOTE | 2020-12-14 06:29 | PC.NURSE ---
shift note patient slept all shift with 2x up for voiding, cpap used, resp even and unlabored, lights overhead left on, per report from day nurse, 2 physicians feels that patient is having hospital aquired psychosis. rested well this shift.
[2020-12-14 07:10] LABS: Basophils % 0.7 %; Eosinophils # 0.2 10^3/uL (0.0-0.8); Eosinophils % 3.1 %; Hematocrit 35.5 % (37.0-47.0); Lymphocytes # 0.9 10^3/uL (0.8-4.8); Lymphocytes % 15.7 %; Mean Corpuscular Hemoglobin 32.4 pg (28.0-34.0); Mean Corpuscular Volume 104.4 fL (81-99); Mean Platelet Volume 11.3 fL (7.4-10.4); Monocytes # 0.9 10^3/uL (0.2-0.9); Monocytes % 15.7 %; Neutrophils # 3.73 10^3/uL (1.8-7.7); Neutrophils % 64.3 %; Nucleated Red Blood Cells # 0.1 /100WBC; Platelet Count 211 10^3/cmm (130-400); Red Cell Distribution Width 14.6 % (12.1-15.1); White Blood Count 5.8 10^3/uL (4.0-10.0)
[2020-12-14 07:42] LABS: Alanine Aminotransferase 76 U/L (0-33); Albumin Level 3.5 g/dL (3.5-5.2); Alkaline Phosphatase 155 IU/L (35-105); Aspartate Amino Transferase 96 U/L (0-32); Blood Urea Nitrogen 47 mg/dL (8-23); Calcium 8.7 mg/dL (8.5-10.5); Carbon Dioxide 22 mmol/L (22-29); Chloride 101 mmol/L (98-107); Globulin 2.6 g/dL (1.3-4.6); Glucose 69 mg/dL (65-115); Osmolality Calculated 297 mOsm/kg (285-295); Sodium 138 mmol/L (136-145); Total Bilirubin 0.8 mg/dL (0.15-1.2); Total Protein 6.1 g/dL (6.6-8.7)
[2020-12-14] MEDS: ipratropium-albuterol 3 mL Neb INHALATION ×2 (08:55)
--- NOTE | 2020-12-14 09:51 | P.PN_ITS ---
Subjective Subjective: Interval history: She feels well, anxious for discharge. Medications: Reviewed: Yes Vitals/I&O/Wt Last Vital Signs Temp 97.9 F 12/14/20 07:51 Pulse 70 12/14/20 09:02 Resp 18 12/14/20 09:02 BP 151/83 12/14/20 07:51 Pulse Ox 92 12/14/20 09:02 12/13/20 12/14/20 12/14/20 22:59 06:59 14:59 Intake Total 240 / 410 240 / 240 Output Total 550 / 750 1000 / 1000 Balance -310 / -340 -760 / -760 Physical Exam Const: COMMON NORMALS: no acute distress GENERAL APPEARANCE: cooperative Extremity: GENERAL: Yes edema Urinary Catheter Management^: Carcamo: Cath Placed During This Visit: yes, but has since been removed by the nurse Reason for Continuing Indwelling Catheter: Other Urinary Catheter Date of Insertion: 12/13/20 Urinary Catheter Time of Insertion: 07:00 Date Urinary Catheter Removed: 12/13/20 Time Urinary Catheter Discontinued: 06:30 Data : 12/14/20 06:15 12/14/20 06:15 A&P Additional A&P Information 1. Acute kidney injury, contrast-induced, nonoliguric, BUN/Cr improving, now near baseline 2. Chronic kidney disease, follows with Dr Carolina as outpatient 2. Mild hyponatremia, resolved Recommend: no new recommendations. Stable for discharge from renal standpoint. 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
[2020-12-14 10:02] LABS: Magnesium 2.3 mg/dL (1.7-2.3)
[2020-12-14] MEDS: ferrous sulfate EC 325 mg Tablet PO (10:10)
[2020-12-14] MEDS: allopurinol 100 mg Tablet PO (10:10)
[2020-12-14] MEDS: metoprolol succinate ER (24 HR) 100 mg Tablet PO (10:10)
[2020-12-14] MEDS: cefTRIAXone 1,000 MG in sodium chloride 0.9% (plus) 50 ML 100 MG IV (10:11)
[2020-12-14] MEDS: clopidogrel 75 mg Tablet PO (10:11)
[2020-12-14] MEDS: docusate sodium 100 mg Capsule PO (10:11)
[2020-12-14] MEDS: aspirin 81 mg EC Tablet PO (10:11)
--- NOTE | 2020-12-14 12:04 | P.PN_ITS ---
Subjective Subjective: Interval history: Feeling much better today she is awake and oriented. Medications: Reviewed: Yes Medication Review Details: Current Medications Acetaminophen (Acetaminophen 325 Mg Tablet) 650 mg PO Q6H PRN PRN Reason: Mild/Mod Pain Or Temp >/= 101 Aspirin (Aspirin 81 Mg Ec Tablet) 81 mg PO DAILY [facility] Last Admin: 12/10/20 08:22 Dose: Not Given Documented by: Clopidogrel Bisulfate (Clopidogrel 75 Mg Tablet) 75 mg PO DAILY [facility] Last Admin: 12/10/20 08:22 Dose: 75 mg Documented by: Docusate Sodium (Docusate Sodium 100 Mg Capsule) 100 mg PO BID [facility] Last Admin: 12/10/20 08:22 Dose: 100 mg Documented by: Enoxaparin Sodium (Enoxaparin 30 Mg/0.3 Ml Syringe) 30 mg SUBCUT Q24H [facility] Last Admin: 12/10/20 05:07 Dose: 30 mg Documented by: Famotidine (Famotidine 20 Mg Tablet) 40 mg PO BEDTIME [facility] Last Admin: 12/09/20 22:07 Dose: 40 mg Documented by: Gabapentin (Gabapentin 300 Mg Capsule) 300 mg PO BID [facility] Last Admin: 12/10/20 08:22 Dose: 300 mg Documented by: Sodium Bicarbonate 150 meq/ (Dextrose) 1,150 mls @ 75 mls/hr IV .[id number] [facility] Last Admin: 12/10/20 10:26 Dose: 75 mls/hr Documented by: Metoprolol Succinate (Metoprolol Succinate Er (24 Hr) 100 Mg Tablet) 100 mg PO DAILY [facility] Last Admin: 12/10/20 08:22 Dose: 100 mg Documented by: Non-Formulary Medication (Magnesium) 250 mg PO DAILY [facility] Ondansetron HCl (Ondansetron 2 Mg/Ml Sdv 2 Ml) 4 mg IVP Q6H PRN PRN Reason: NAUSEA AND VOMITING Vitals/I&O/Wt Last Vital Signs Temp 97.9 F 12/14/20 11:18 Pulse 71 12/14/20 11:18 Resp 18 12/14/20 11:18 BP 144/68 12/14/20 11:18 Pulse Ox 86 L 12/14/20 11:39 12/13/20 12/14/20 12/14/20 22:59 06:59 14:59 Intake Total 240 / 410 290 / 290 Output Total 550 / 750 1000 / 1000 Balance -310 / -340 -710 / -710 Physical Exam Narrative: EXAM NARRATIVE: GENERAL: Patient is awake but slightly confused NECK: No jugular vein distension. HEENT: No cyanosis. No icterus. No pallor. HEART: Regular S1 and S2. No murmur, rub or gallop. LUNGS: Clear bilaterally. ABDOMEN: Soft, nontender and nondistended. Positive bowel sounds. No guarding, rebound or tenderness. CENTRAL NERVOUS SYSTEM: Grossly nonfocal. EXTREMITIES: Lower extremities without edema bilaterally. Both legs are warm moist with pinkish color Urinary Catheter Management^: Carcamo: Cath Placed During This Visit: yes, but has since been removed by the nurse Reason for Continuing Indwelling Catheter: Other Urinary Catheter Date of Insertion: 12/13/20 Urinary Catheter Time of Insertion: 07:00 Date Urinary Catheter Removed: 12/13/20 Time Urinary Catheter Discontinued: 06:30 Data : 12/14/20 06:15 12/14/20 06:15 A&P Assessment and plan (1) Acute kidney injury superimposed on chronic kidney disease: Continues to improve steadily. We will switch her to Bumex at home Status: Acute (2) Chronic systolic heart failure: Stable patient is in positive volume status however heart failure started becoming compensated. She may can be discharged today and will resume Bumex 2 mg twice a day. We will hold Entresto for next 48 hours for renal injury. We will follow her up within 1 week and cardiology Status: Acute (3) Peripheral vascular disease: Stable from peripheral vascular disease perspective continue aspirin and Plavix for 3 months. Status: Acute (4) Cardiac resynchronization therapy defibrillator (HYDROLOGIST-D) in place: Working in a good standing. Status: Acute (5) Non-ischemic cardiomyopathy: Continue medicine as above appear to be stable. Status: Acute (6) Confusion: Could be multifactorial and heart failure. We will continue to diurese advised light therapy by sitting at window Status: Acute Additional A&P Information Her other problems are #1 history of atrial fibrillation, status post radiofrequency ablation, status post watchman device placement. #2. History of CVA involving the posterior circulation; status post TPA; anaphylactic reaction to TPA #3. History of massive GI bleed requiring multiple blood transfusions. History of bleeding gastric ulcer status post cauterization #4 history of essential benign hypertension #5 history of peripheral neuropathy Other problems are as outlined before We will continue with a careful hydration and close monitoring. Watching for the development of any heart failure. The patient's clinical progress, further recommendations will be made. Attestations Medical Necessity Statement*: From a cardiovascular perspective patient can be discharged home today. Coding Level of Care Code Established Pt Acute Bi Tri Operator for Chg Fwd Patient Type Established History Detailed Exam Detailed Medical Decision Making Moderate Complexity Diagnoses Acute kidney injury superimposed on chronic kidney disease N17.9; N18.9 Chronic systolic heart failure I50.22 Peripheral vascular disease I73.9 Cardiac resynchronization therapy defibrillator (HYDROLOGIST-D) in place Z95.810 Non-ischemic cardiomyopathy I42.8 Confusion R41.0
[2020-12-14] MEDS: FUROsemide 10 mg/mL SDV 4mL 40 MG IVP (12:11)
--- NOTE | 2020-12-14 12:43 | P.DS_ITS ---
Discharge Providers Date of Admission: 12/08/20 16:32 Date of Discharge: December 14, 2020 Attending Provider at Admission: Katty Brennan MD Attending Provider at Discharge: Daniel Quiroz MD Primary Care Provider: Janie Agustin MD Diagnoses at Discharge Discharge Diagnosis (1) Acute kidney injury superimposed on chronic kidney disease: Status: Acute (2) Chronic systolic heart failure: Status: Acute (3) Peripheral vascular disease: Status: Acute (4) Cardiac resynchronization therapy defibrillator (CARE NURSE RN-D) in place: Status: Acute (5) Non-ischemic cardiomyopathy: Status: Acute (6) Confusion: Status: Acute Reason for Visit Reason for Visit: Kidney Pain\[facility] Hospital Course 75 year old female past medical history as outlined below in PMH, recently admitted here between 12/05-12/06 for acute critical limb ischemia of the left leg with Near complete occlusion of the popliteal artery. left posterior tibial and dorsalis pedis arteries. On 12/05 she underwent balloon angioplasty, thrombectomy and nondrug-eluting stent placement in distal tibioperoneal trunk and ostial left anterior tibial vessel for acute limb threatening ischemia for limb salvage. Diuretics were resumed on discharge. she returned today with inability to pass urine.Creatinine was up to 3.9 from 1.7 at discharge.She was admitted for the management of BJ and CKD stage III secondary to contrast-induced nephropathy, initially she was kept on gentle IV hydration, diuretics were kept on hold, Entresto was kept on hold, intake output was charted, slowly her kidney function started improving urine output improved, serum creatinine at the time of discharge was 2.3 slowly progressing towards the baseline, IV diuresis was resumed as he was developing shortness of breath, she was also kept on IV antibiotics for pneumonia, suggested by chest x-ray finding as well as worsening shortness of breath and cough. At the time of discharge Bumex 2 mg twice a day was resumed, he has been asked to start Entresto in next 2 days. She also qualified for 2 L home oxygen at the time of discharge. Aspirin and Plavix has been continued for peripheral vascular disease status post nondrug-eluting stent placement. Overall patient responded well to the above medical management and is being discharged in stable condition. She will continue to follow cardiology , paraprofessional education assistant as well as her primary care physician as an outpatient. Physical Exam Const: COMMON NORMALS: patient oriented x3 HENMT: COMMON NORMALS: normocephalic and atraumatic HEAD & SCALP: normocephalic and atraumatic Chest: CHEST: Yes Symmetrical chest wall rise Resp: COMMON NORMALS: clear to auscultation bilaterally EFFORT & INSPECTION: Yes symmetric chest movement AUSCULTATION: clear to auscultation bilaterally Cardio: COMMON NORMALS: regular rate, regular rhythm, S1 normal heart sound present, S2 normal heart sound present, No gallops present (Cardio), No murmurs present (Cardio), No rub (Cardio) and Peripheral pulses 2+ throughout RATE: regular rate RHYTHM: regular rhythm HEART SOUNDS: S1 normal heart sound present and S2 normal heart sound present PERIPHERAL PULSES: Peripheral pulses 2+ throughout GI: COMMON NORMALS: Normal to inspection, nondistended, normoactive bowel sounds present, Soft to palpation, non-tender, No hepatosplenomegaly present and no masses AUSCULTATION: Yes normoactive bowel sounds PALPATION: Yes Soft to palpation and Yes No hepatosplenomegaly present RECTAL EXAM: deferred Extremity: COMMON NORMALS: no clubbing, cyanosis or edema and no pedal edema Neuro: COMMON NORMALS: patient oriented x3 Urinary Catheter Management^: Carcamo: Cath Placed During This Visit: yes, but has since been removed by the nurse Reason for Continuing Indwelling Catheter: Other Urinary Catheter Date of Insertion: 12/13/20 Urinary Catheter Time of Insertion: 07:00 Date Urinary Catheter Removed: 12/13/20 Time Urinary Catheter Discontinued: 06:30 Discharge Data Data Completed and Pending: Completed Studies During Hospitalization Category Date Time Status CT head wo con* 7 0450 Stat Cat Scan 12/10/20 00:10 Completed XR chest 1V socrates ble [id number] Urgent Exams 12/07/20 20:55 Completed XR chest 1V socrates ble [id number] Urgent Exams 12/11/20 09:00 Completed US renal BI* [id number] Routine Ultrasound 12/08/20 01:59 Completed Pending at discharge Category Date Time Status Complete Blood Co unt w/Auto AM LABS Lab 12/15/20 04:00 Ordered Comprehensive Met abolic Panel AM LA BS Lab 12/15/20 04:00 Ordered Urine Culture Rou lisa Lab 12/13/20 19:05 Received Labs from last 24 hours 12/14/20 12/14/20 12/14/20 06:15 06:15 06:15 WBC 5.8 RBC 3.40 L Hgb 11.0 L Hct 35.5 L MCV 104.4 H MCH 32.4 MCHC 31.0 RDW 14.6 Plt Count 211 MPV 11.3 H Neut % (Auto) 64.3 Lymph % (Auto) 15.7 [place] % (Auto) 15.7 Eos % (Auto) 3.1 Baso % (Auto) 0.7 Neut # (Auto) 3.73 Lymph # (Auto) 0.9 [place] # (Auto) 0.9 Eos # (Auto) 0.2 Baso # (Auto) 0.0 Nucleated RBC % (a uto) 1.0 Nucleated RBCs # 0.1 Sodium 138 Potassium 4.0 Chloride 101 Carbon Dioxide 22 Anion Gap 19.0 BUN 47 H Creatinine 2.3 H GFR Calculation Not Reportable Glucose 69 Calculated Osmolal ity 297 H Calcium 8.7 Phosphorus 4.0 Magnesium 2.3 Total Bilirubin 0.8 AST 96 H ALT 76 H Alkaline Phosphata se 155 H Total Protein 6.1 L Albumin 3.5 Globulin 2.6 Urine Color Urine Appearance Urine pH Ur Specific Gravit y Urine Protein Urine Glucose (UA) Urine Ketones Urine Blood Urine Nitrate Urine Bilirubin Urine Urobilinogen Ur Leukocyte Dunia ase Urine RBC Urine WBC Ur Squamous Epith Cells Amorphous Sediment Urine Bacteria 12/13/20 19:05 WBC RBC Hgb Hct MCV MCH MCHC RDW Plt Count MPV Neut % (Auto) Lymph % (Auto) [place] % (Auto) Eos % (Auto) Baso % (Auto) Neut # (Auto) Lymph # (Auto) [place] # (Auto) Eos # (Auto) Baso # (Auto) Nucleated RBC % (a uto) Nucleated RBCs # Sodium Potassium Chloride Carbon Dioxide Anion Gap BUN Creatinine GFR Calculation Glucose Calculated Osmolal ity Calcium Phosphorus Magnesium Total Bilirubin AST ALT Alkaline Phosphata se Total Protein Albumin Globulin Urine Color Yellow Urine Appearance Hazy A Urine pH 5 Ur Specific Gravit y 1.015 Urine Protein Neg Urine Glucose (UA) Norm Urine Ketones Negative Urine Blood 3+ H Urine Nitrate Negative Urine Bilirubin Neg Urine Urobilinogen Norm Ur Leukocyte Dunia ase Trace H Urine RBC >100 H Urine WBC 0-4 H Ur Squamous Epith Cells 0-4 H Amorphous Sediment Not Reportable Urine Bacteria 2+ H Vitals: Last Vital Signs Temp 97.9 F 12/14/20 11:18 Pulse 71 12/14/20 11:18 Resp 18 12/14/20 11:18 BP 144/68 12/14/20 11:18 Pulse Ox 86 L 12/14/20 11:39 Discharge Plan Discharge Patient Disposition: Home Condition: Stable Prescriptions: Continued allopurinol 100 mg tablet 100 mg PO DAILY RF: 0 ferrous sulfate 325 mg (65 mg iron) tablet 325 mg PO BID RF: 0 vitamin B complex [B Complex-Vitamin B12] Tablet 1 tab PO DAILY RF: 0 magnesium 250 mg tablet 250 mg PO DAILY RF: 0 metoprolol succinate 100 mg tablet extended release 24 hr 100 mg PO DAILY RF: 0 acetaminophen 500 mg capsule 500 mg PO Q6H PRN (Reason: Pain, Mild) RF: 0 gabapentin 100 mg capsule 300 mg PO BID RF: 0 Entresto 24-26 mg tablet 1 tab PO BID Qty: 0 RF: 0 bumetanide 2 mg tablet 2 mg PO BID RF: 0 clopidogrel 75 mg Tablet 75 mg PO DAILY Qty: 90 RF: 1 pantoprazole 40 mg Tablet,Delayed Release (Dr/Ec) 40 mg PO DAILY Qty: 90 RF: 3 aspirin [Adult Aspirin Regimen] 81 mg tablet,delayed release (DR/EC) 81 mg PO DAILY Qty: 30 RF: 3 Discharge Orders: Discharge Order (Routine); Ordered 12/14/20 Ordered By: Daniel Quiroz Other Ambulatory Orders: DME: Oxygen (Order) Location: None Selected Ordered By: Daniel Quiroz Referrals: Janie Agustin MD [Primary Care Provider] - 2 weeks Juan Alberto Carolina MD [Referring] - 2 weeks Estrella Saucedo MD [Physician] - 1 week Discharge Diet: Cardiac Discharge Activity: Increase activity as tolerated Patient Instructions: Using Oxygen at Home (GEN), Altered Mental Status (GEN), Opioid Safety Discharge Attestations Time Spent in Discharge Care*: less than 30 min Specific Discharge Activities: educating patient, educating and/or supporting family/caregiver, discussing with pcp/other providers, discussing with case sealer/social workers/dc planners, documenting/other paperwork and evaluating patient/reviewing data Status at Discharge: Cognitive status at discharge: cognitively intact , Behavioral status at discharge: cooperative , Quality Metrics Clinical Quality Measures During this hospital stay, did patient experience: None Coding Level of Care Code Acute Chg FW DC note Diagnoses Acute kidney injury superimposed on chronic kidney disease N17.9; N18.9 Chronic systolic heart failure I50.22 Peripheral vascular disease I73.9 Cardiac resynchronization therapy defibrillator (CARE NURSE RN-D) in place Z95.810 Non-ischemic cardiomyopathy I42.8 Confusion R41.0
== END 2020-12-14 15:50 | disposition home or self-care (01) | DRG 682 ==
LOC: ER 22:27 → MEDSURG 23:23
PROVIDERS: Hospitalist; Internal Medicine Cardiovascular Disease; Admitting Provider Student in an Organized Health Care Education/Training Program; Emergency Provider Emergency Medicine; PCP Internal Medicine; Visit Provider Internal Medicine
DX: N17.9 Acute kidney failure, unspecified (principal); I50.23 Acute on chronic systolic (congestive) heart failure; J18.9 Pneumonia, unspecified organism; I42.0 Dilated cardiomyopathy; I13.0 Hypertensive heart and chronic kidney disease with heart failure and stage 1 through stage 4 chronic kidney disease, or unspecified chronic kidney disease; J44.0 Chronic obstructive pulmonary disease with (acute) lower respiratory infection; I73.9 Peripheral vascular disease, unspecified; Z95.820 Peripheral vascular angioplasty status with implants and grafts; F10.21 Alcohol dependence, in remission; I48.91 Unspecified atrial fibrillation; Z85.3 Personal history of malignant neoplasm of breast; I65.23 Occlusion and stenosis of bilateral carotid arteries; N18.32 Chronic kidney disease, stage 3b; Z86.73 Personal history of transient ischemic attack (TIA), and cerebral infarction without residual deficits; Z95.810 Presence of automatic (implantable) cardiac defibrillator; I34.0 Nonrheumatic mitral (valve) insufficiency; G47.33 Obstructive sleep apnea (adult) (pediatric); Z87.11 Personal history of peptic ulcer disease; Z87.891 Personal history of nicotine dependence; G62.9 Polyneuropathy, unspecified; N14.1 Nephropathy induced by other drugs, medicaments and biological substances; T50.8X5A Adverse effect of diagnostic agents, initial encounter; D64.9 Anemia, unspecified; R41.0 Disorientation, unspecified; Z79.02 Long term (current) use of antithrombotics/antiplatelets; Z79.82 Long term (current) use of aspirin
CPT/HCPCS: 36415; 36416; 37186; 37230; 51702; 51798; 70450; 71045; 75710; 76770; 80048; 80053; 81001; 81003; 82436; 82550; 82962; 83735; 83880; 84100; 84133; 84300; 85025; 85347; 85378; 85610; 85730; 87086; 93005; 93926; 93971; 94640; 96361; 96365; 96366; 96372; 96374; 96375; 97110; 97116; 97161; 97530; 99285; C1725; C1769; C1876; C1887; C1894; C9113; G0378; J0696; J1644; J1650; J1940; J2250; J2270; J2405; J3010; J3246; J3490; J7030; J7040; Q3014; Q9967

== ENCOUNTER 2020-12-19 11:59 | Outpatient (CLI) | payer MEDICARE, OTHER, SELFPAY ==
[2020-12-19 13:03] LABS: Add Urine Microscopic? NO; Charge for UA Resulting for Rev
[2020-12-19 13:04] LABS: Basophils % 0.5 %; Eosinophils # 0.2 10^3/uL (0.0-0.8); Eosinophils % 3.9 %; Hematocrit 35.7 % (37.0-47.0); Hemoglobin 11.2 g/dL (11.5-15.3); Lymphocytes # 0.8 10^3/uL (0.8-4.8); Lymphocytes % 12.6 %; Mean Corpuscular HGB Conc 31.4 g/dL (30.0-36.0); Mean Corpuscular Hemoglobin 33.5 pg (28.0-34.0); Mean Corpuscular Volume 106.9 fL (81-99); Mean Platelet Volume 10.4 fL (7.4-10.4); Monocytes # 0.6 10^3/uL (0.2-0.9); Monocytes % 10.3 %; Neutrophils # 4.39 10^3/uL (1.8-7.7); Nucleated Red Blood Cells % 0 %; Platelet Count 246 10^3/cmm (130-400); Red Blood Count 3.34 10^6/uL (4.1-5.3); Red Cell Distribution Width 16.7 % (12.1-15.1); White Blood Count 6.1 10^3/uL (4.0-10.0)
[2020-12-19 13:12] LABS: Bilirubin Urine Neg (Negative); Blood Urine Neg (Negative); Glucose Urine UA Norm (Normal); Ketones Urine Negative (Negative); Leukocyte Esterase Urine Negative (Negative); Nitrate Urine Negative (Negative); Protein Urine Neg (Negative); Specific Gravity, Urine 1.005 (1.005-1.030); Urine Appearance Clear (CLEAR); Urine Color Yellow (Yellow); Urobilinogen Urine Neg (Negative); pH Urine 7 (5-7)
[2020-12-19 13:30] LABS: Creatinine Urine, Random 46 mg/dL (28-217)
[2020-12-19 13:31] LABS: Albumin Level 3.6 g/dL (3.5-5.2); Anion Gap 14.5 (5-19); Blood Urea Nitrogen 46 mg/dL (8-23); Calcium 9.1 mg/dL (8.5-10.5); Carbon Dioxide 29 mmol/L (22-29); Chloride 100 mmol/L (98-107); Glucose 91 mg/dL (65-115); Phosphorus 2.5 mg/dL (2.5-4.5); Potassium 3.5 mmol/L (3.5-5.1); Sodium 140 mmol/L (136-145)
[2020-12-19 13:32] LABS: Microalbum Creatinine Ratio Ur 22 mg/dL (0-20); Microalbumin Random Urine < 1 ug/dL (0-20)
== END 2020-12-19 12:00 | disposition home or self-care (01) ==
LOC: LAB 12:27
PROVIDERS: PCP Internal Medicine; Visit Provider Registered Nurse
DX: R30.0 Dysuria (principal)
CPT/HCPCS: 36415; 80069; 81003; 82044; 85025; 87086

== ENCOUNTER 2020-12-30 13:04 | Outpatient (CLI) | payer MEDICARE, OTHER, SELFPAY ==
--- NOTE | 2020-12-30 12:45 | USCV_ITS ---
Teena Timmons Age: 75 Gender: F : 1945 Exam Date: 12/30/2020 13:27 Ordering Phys: Raji Wong M.D ([email or web address]) Technologist: Manju Kolb [place]am [place] [facility] [place]: PERIPHERAL VASCULAR DISEASE Risk Factors: Previous Vascular Surgery: RIGHT LEFT BP: 125.0 / 54.00 BP: 125.0/ 56.00 0 0 Waveform Velocity (cm/s) Velocity (cm/s) Waveform Triphasic 194.9 Iliac Prox 145.2 Triphasic Triphasic 178.9 Iliac Mid 121.2 Triphasic Triphasic 166.1 Iliac Distal 138.6 Triphasic Triphasic 145.4 KINESIOLOGIST 104.7 Triphasic Triphasic 111.7 SFA Prox 81.6 Triphasic Triphasic 109.1 SFA Mid 86.0 Biphasic Biphasic 63.9 SFA Dist 52.1 Biphasic Monophasic 36.3 POP 31.3 Biphasic Monophasic 33.3 TELECOMMUNICATIONS MANAGER 13.2 Monophasic Monophasic 26.1 DPA 17.3 Monophasic 0.4 KALEN 0.5 FINDINGS RT TELECOMMUNICATIONS MANAGER 50 RT DPA 40 LT DPA 28 LT TELECOMMUNICATIONS MANAGER 64 Normal resting ABIs bilaterally of 0.4 on the right side and 0.5 on the left side Moderate diffuse plaques in the popliteal infrapopliteal vessels bilaterally CONCLUSIONS 1. Abnormal resting KALEN on the right side with abnormal Doppler waveforms, suggestive of severe obstructive arterial disease involving the infrapopliteal vessels. 2. Abnormal resting KALEN and Doppler waveforms on the left side, suggestive of moderately severe obstructive arterial disease involving the infrapopliteal vessels . Comparison with the previous study from 11/25/2020 is difficult because the difference in the technical quality Dr Christiano Max MD [facility] (Electronically Signed) Final Date: 30 December 2020 17:11 S
== END 2020-12-30 13:05 | disposition home or self-care (01) ==
PROVIDERS: PCP Internal Medicine; Visit Provider Internal Medicine
DX: I73.9 Peripheral vascular disease, unspecified (principal)
CPT/HCPCS: 93925

== ENCOUNTER 2021-01-07 14:16 | Outpatient (CLI) | payer MEDICARE, OTHER, SELFPAY ==
--- NOTE | 2021-01-07 14:21 | USCV_ITS ---
Teena Timmons Age: 75 Gender: F : 1945 Exam Date: 01/07/2021 14:44 Ordering Phys: Cindy Limon Technologist: Albert Hudson Exam Location: [facility] [place] Indication: CHRONIC SYSTOLIC HEART FAILURE BP: 106 / 54 HR: Rhythm: Sinus Technical Quality: Adequate MEASUREMENTS (Male / Female) Normal Values 2D ECHO LV Diastolic Diameter PLAX 5.0 cm 4.2 - 5.9 / 3.9 - 5.3 cm LV Systolic Diameter PLAX 3.8 cm IVS Diastolic Thickness 1.3 cm 0.6 - 1.0 / 0.6 - 0.9 cm IVS Systolic Thickness 1.5 cm LVPW Diastolic Thickness 1.4 cm 0.6 - 1.0 / 0.6 - 0.9 cm LVPW Systolic Thickness 1.6 cm LVOT Diameter 2.0 cm LV Ejection Fraction 2D Teich 43.9 % LV Ejection Fraction MOD 2C 41.8 % LV Ejection Fraction 2C AL 44.1 % LA Diameter 4.9 cm LA Width 5.5 cm LA Height 7.1 cm RA Width 4.1 cm RA Height 6.2 cm Aorta at Sinotubular Diameter 2.3 cm DOPPLER AV Peak Velocity 139.0 cm/s LVOT Peak Velocity 79.0 cm/s AV Area Cont Eq vti 1.6 cm squared AV Area Cont Eq pk 1.8 cm squared MV Peak Velocity 536.0 cm/s PV Peak Velocity 70.0 cm/s RV Acceleration Time 0.1 s RV Ejection Time 0.4 s RV AcT/ET 0.3 FINDINGS Left Ventricle Normal left ventricular cavity size. Mild depression off left ventricular systolic function. Global hypokinesis. Left ventricular ejection fraction is estimated at 50 %. Right Ventricle Normal right ventricular size. Catheter/pacemaker wire visualized in the right ventricle. Right Atrium Normal right atrial size. Catheter/pacemaker wire in the right atrial cavity. Left Atrium Moderately increased left atrial size. Mitral Valve Moderately thickened mitral valve. No mitral valve stenosis cannot rule out rheumatic mitral valve, severe mitral annular calcification. Mild mitral valve regurgitation. Aortic Valve Moderate aortic valve calcification. Moderate aortic valve stenosis, mean gradient 4.3 mmHg, FRANCESCA 1.6 cm squared. Tricuspid Valve Mild tricuspid valve regurgitation. Pulmonic Valve Structurally normal pulmonic valve without significant stenosis. There is no pulmonic regurgitation. Pericardium Normal pericardium without effusion. Aorta Normal ascending aorta dimension. CONCLUSIONS Normal left ventricular cavity size. Mild depression off left ventricular systolic function. Global hypokinesis. Left ventricular ejection fraction is estimated at 50 %. 2-Normal right ventricular size. Catheter/pacemaker wire visualized in the right ventricle. 3-Moderately increased left atrial size. 4-Moderately thickened mitral valve. No mitral valve stenosis cannot rule out rheumatic mitral valve, severe mitral annular calcification. Mild mitral valve regurgitation. 5-Moderate aortic valve calcification. Moderate aortic valve stenosis, mean gradient 4.3 mmHg, FRANCESCA 1.6 cm squared. 6-Mild tricuspid valve regurgitation. 7-There is no pericardial effusion. 8-when compared to the prior echocardiogram dated August 17, 2019 there is deterioration of aortic valve area however still in the moderately stenotic category of 1.6 cm2 Estrella Saucedo MD (Electronically Signed) Final Date: 07 January 2021 19:16 S
== END 2021-01-07 14:17 | disposition home or self-care (01) ==
LOC: US 14:17
PROVIDERS: PCP Internal Medicine; Visit Provider Nurse Practitioner Adult Health
DX: I50.22 Chronic systolic (congestive) heart failure (principal); I08.3 Combined rheumatic disorders of mitral, aortic and tricuspid valves
CPT/HCPCS: 93306

== ENCOUNTER 2021-01-10 10:48 | Outpatient (CLI) | payer MEDICARE, OTHER, SELFPAY ==
[2021-01-10 12:07] LABS: Basophils % 0.6 %; Eosinophils # 0.3 10^3/uL (0.0-0.8); Eosinophils % 5.1 %; Hematocrit 28.2 % (37.0-47.0); Hemoglobin 8.8 g/dL (11.5-15.3); Lymphocytes # 0.6 10^3/uL (0.8-4.8); Mean Corpuscular HGB Conc 31.2 g/dL (30.0-36.0); Mean Corpuscular Hemoglobin 33.3 pg (28.0-34.0); Mean Corpuscular Volume 106.8 fl (81-99); Mean Platelet Volume 9.9 fL (7.4-10.4); Monocytes # 0.3 10^3/uL (0.2-0.9); Neutrophils # 4.04 10^3/uL (1.8-7.7); Neutrophils % 75.7 %; Nucleated Red Blood Cells % 0 %; Platelet Count 345 10^3/cmm (130-400); Red Blood Count 2.64 10^6/uL (4.1-5.3); Red Cell Distribution Width 15.5 % (12.1-15.1); White Blood Count 5.3 10^3/uL (4.0-10.0)
[2021-01-10 14:02] LABS: Creatinine Urine, Random 53 mg/dL (28-217)
[2021-01-10 14:04] LABS: Microalbum Creatinine Ratio Ur 19 mg/dL (0-20); Microalbumin Random Urine < 1 ug/dL (0-20)
[2021-01-10 14:06] LABS: Albumin Level 3.9 g/dL (3.5-5.2); Anion Gap 16.4 (5-19); Blood Urea Nitrogen 68 mg/dL (8-23); Calcium 9.1 mg/dL (8.5-10.5); Carbon Dioxide 24 mmol/L (22-29); Chloride 104 mmol/L (98-107); Ferritin 88 ng/mL (15-150); Glucose 95 mg/dL (65-115); Iron 121 ug/dL (37-145); Percent Saturation 33.4 % (20-50); Phosphorus 4.1 mg/dL (2.5-4.5); Potassium 4.4 mmol/L (3.5-5.1); Sodium 140 mmol/L (136-145); Total Iron Binding Capacity 362 mcg/dl; Unsaturated Iron Binding 241 ug/dL (112-347)
[2021-01-15 01:32] LABS: Vit D 1,25 (Oh)2, Total 16 pg/mL (18-72); Vit D2 1,25 (Oh)2 <8 pg/mL; Vit D3 1,25 (Oh)2 16 pg/mL
== END 2021-01-10 10:49 | disposition home or self-care (01) ==
PROVIDERS: PCP Internal Medicine; Visit Provider Registered Nurse
DX: N18.4 Chronic kidney disease, stage 4 (severe) (principal)
CPT/HCPCS: 80069; 82044; 82310; 82652; 82728; 83540; 83550; 83970; 85025

== ENCOUNTER 2021-01-13 14:21 | Emergency (ER) | payer MEDICARE, OTHER, SELFPAY ==
[2021-01-13 14:53] VITALS: BP 85/54; PULSE 64; RESP 16; TEMP 36.6; O2SAT 94; BMI 31.4
--- NOTE | 2021-01-13 23:21 | ECG_ITS ---
[facility] Test Date: 2021-01-14 Pat Name: Teena Timmons Department: Room: Gender: Female Cytogenetic Technician: : 1945 Requested By: Paul Bowling Order Number: [id number] Zoe MD: Raji Wong M.D. Measurements Intervals [place] Rate: 70 P: [place]: QRS: 266 QRSD: 194 T: 78 QT: 512 QTc: 554 Interpretive Statements ELECTRONIC VENTRICULAR PACEMAKER ABNORMAL RHYTHM ECG Compared to ECG 12/12/2020 21:03:37 Atrial-paced complex(es) or rhythm no longer present Electronically Signed On 01-14-2021 17:09:13 CDT by Raji Wong M.D. [email or web address]
--- NOTE | 2021-01-13 23:30 | ED_ITS ---
HPI - General Adult General: Chief complaint: General Medical Stated complaint: LOW BP: SENT BY [facility] Time Seen by Provider: 01/13/21 23:18 Source: patient Mode of arrival: ambulatory Limitations: no limitations History of Present Illness: HPI narrative: 75-year-old female who states that she had an appointment today with her auto parts handler. She states that while there her blood pressure was in the 70s she states she been having some slight weakness over the last week. Her auto parts handler had sent her here for further check. She is on blood pressure meds including metoprolol. Patient denies any headache or chest pain. Patient blood pressure here is now normal at 106/56. Denies any vomiting or diarrhea. Denies any syncope or near syncope Associated symptoms: Deny chest pain, dyspnea, headache(s), nausea, rash or vomiting Review of Systems Const: Denies: fever(s), chills, body aches or change in appetite Eyes: Denies: blurry vision or eye discomfort ENMT: Denies: throat pain or dental pain Card: Denies: chest pain Resp: Denies: dyspnea GI: Denies: abdominal pain, nausea, vomiting or diarrhea : Denies: dysuria Musc: Denies: neck pain or back pain Skin/Breast: Denies: rash Neuro: Denies: headache(s) Psych: Denies: depression Yovanny/Lymph: Denies: easy bruising All/Imm: Denies: urticaria PFSH ED PFSH: Medical History Acute kidney injury superimposed on chronic kidney disease Acute on chronic systolic heart failure Acute renal failure Alcoholism in recovery Anemia Atrial fibrillation Breast cancer Cardiac resynchronization therapy defibrillator (CAR FRAMER-D) in place Cardiomyopathy Carotid stenosis, bilateral CHF (congestive heart failure) Chronic systolic heart failure CKD (chronic kidney disease) Claudication Confusion COPD (chronic obstructive pulmonary disease) CVA (cerebral vascular accident) DJD (degenerative joint disease), lumbar HTN (hypertension) ICD (implantable cardioverter-defibrillator) in place Mitral regurgitation Non-ischemic cardiomyopathy VALE on CPAP Peripheral vascular disease Pneumonia Presence of Watchman left atrial appendage closure device PUD (peptic ulcer disease) PVCs (premature ventricular contractions) Surgical History History of cardiac radiofrequency ablation History of resection of meningioma Previous back surgery S/P cataract extraction S/P lumpectomy of breast Family History Sister Cancer Social History Smoking and tobacco status: former smoker Alcohol intake: former Other details last alcohol use: recovering alcoholic Household members: spouse Marital status: Physical Exam Const: COMMON NORMALS: no acute distress, patient oriented x3 and healthy appearing HENMT: COMMON NORMALS: normocephalic and atraumatic HEAD & SCALP: normocephalic and atraumatic Eye: COMMON NORMALS: Equal, round and reactive pupils present and EOMs intact bilaterally PUPIL: Yes Equal, round and reactive pupils present Neck/C-Spine: COMMON NORMALS: full ROM and supple Chest: COMMONS NORMALS: normal inspection of the chest and normal palpation of entire chest wall Resp: COMMON NORMALS: normal respiratory effort, No retractions, No use of accessory muscles and clear to auscultation bilaterally AUSCULTATION: clear to auscultation bilaterally Cardio: COMMON NORMALS: regular rate, regular rhythm and No murmurs present (Cardio) RATE: regular rate RHYTHM: regular rhythm GI: COMMON NORMALS: Normal to inspection, nondistended, normoactive bowel sounds present, Soft to palpation, non-tender and no masses PALPATION: Yes Soft to palpation Extremity: COMMON NORMALS: normal to inspection and full ROM Neuro: COMMON NORMALS: patient oriented x3, moves all extremities and no focal motor deficits Psych: COMMON NORMALS: mental status grossly normal, Normal thought process present and cooperative THOUGHT PROCESS: Normal thought process present Skin: COMMON NORMALS: no rashes or lesions noted and no wounds GENERAL SKIN EXAM: no rashes or lesions noted Course Vital Signs: Vital signs: Vital Signs Temperature 98 F 01/13/21 14:53 Pulse Rate 75 01/14/21 02:09 Respiratory Rate 19 H 01/14/21 02:09 Blood Pressure 111/59 01/14/21 02:09 Pulse Oximetry 100 01/14/21 02:09 MDM - General Adult MDM Narrative: Medical decision making narrative: Patient presents with hypotension likely due to her medication. Patient's blood work here is normal. And is mainly in her baseline. Patient given IV fluids and her blood pressure here is much improved. She has no signs of sepsis. We will have her stop her metoprolol. She is to follow-up with Dr. Berg and return if worsening. She understands agrees to plan. Lab Data: Labs: Lab Results 01/14/21 01/14/21 01/14/21 Range/Units 00:30 00:30 00:30 WBC 7.3 (4.0-10.0) 10^3/ uL RBC 2.68 L (4.1-5.3) 10^6/u L Hgb 8.9 L (11.5-15.3) g/dL Hct 28.6 L (37.0-47.0) % MCV 106.7 H (81-99) fl MCH 33.2 (28.0-34.0) pg MCHC 31.1 (30.0-36.0) g/dL RDW 15.8 H (12.1-15.1) % Plt Count 323 (130-400) 10^3/c mm MPV 10.0 (7.4-10.4) fL Neut % (Auto) 80.4 % Lymph % (Auto) 8.9 % [place] % (Auto) 7.4 % Eos % (Auto) 2.3 % Baso % (Auto) 0.5 % Neut # (Auto) 5.87 (1.8-7.7) 10^3/u L Lymph # (Auto) 0.7 L (0.8-4.8) 10^3/u L [place] # (Auto) 0.5 (0.2-0.9) 10^3/u L Eos # (Auto) 0.2 (0.0-0.8) 10^3/u L Baso # (Auto) 0.0 (0.0-0.1) 10^3/u L Nucleated RBC % (a uto) 0 % Nucleated RBCs # 0.0 /100WBC Sodium 140 (136-145) mmol/L Potassium 3.9 (3.5-5.1) mmol/L Chloride 101 (98-107) mmol/L Carbon Dioxide 25 (22-29) mmol/L Anion Gap 17.9 (5-19) BUN 73 H (8-23) mg/dL Creatinine 2.2 H (0.5-0.9) mg/dL GFR Calculation Not Reportable Glucose 123 H (65-115) mg/dL Calculated Osmolal ity 313 H (285-295) mOsm/k g Lactate (0.5-2.2) mmol/L Calcium 9.1 (8.5-10.5) mg/dL Troponin T Baselin e (0-10) ng/L Troponin T 120 Min kenaitze (0-10) ng/L Delta Troponin T (0-10) ABS# Blood Type A Positive Rho(D) Type Positive Antibody Screen Negative 01/14/21 01/14/21 01/14/21 Range/Units 00:30 00:30 02:28 WBC (4.0-10.0) 10^3/ uL RBC (4.1-5.3) 10^6/u L Hgb (11.5-15.3) g/dL Hct (37.0-47.0) % MCV (81-99) fl MCH (28.0-34.0) pg MCHC (30.0-36.0) g/dL RDW (12.1-15.1) % Plt Count (130-400) 10^3/c mm MPV (7.4-10.4) fL Neut % (Auto) % Lymph % (Auto) % [place] % (Auto) % Eos % (Auto) % Baso % (Auto) % Neut # (Auto) (1.8-7.7) 10^3/u L Lymph # (Auto) (0.8-4.8) 10^3/u L [place] # (Auto) (0.2-0.9) 10^3/u L Eos # (Auto) (0.0-0.8) 10^3/u L Baso # (Auto) (0.0-0.1) 10^3/u L Nucleated RBC % (a uto) % Nucleated RBCs # /100WBC Sodium (136-145) mmol/L Potassium (3.5-5.1) mmol/L Chloride (98-107) mmol/L Carbon Dioxide (22-29) mmol/L Anion Gap (5-19) BUN (8-23) mg/dL Creatinine (0.5-0.9) mg/dL GFR Calculation Glucose (65-115) mg/dL Calculated Osmolal ity (285-295) mOsm/k g Lactate 1.7 (0.5-2.2) mmol/L Calcium (8.5-10.5) mg/dL Troponin T Baselin e 38 H (0-10) ng/L Troponin T 120 Min kenaitze 34.19 H (0-10) ng/L Delta Troponin T -3.81 L (0-10) ABS# Blood Type Rho(D) Type Antibody Screen EKG Data^: EKG 1: Attestation: I personally reviewed and interpreted this EKG as follows: EKG interpretation date: 01/14/21 EKG interpretation time: 00:48 Interpretation: paced hr [address] or t wave abnormalities qrs 194 qtc 532 Discharge Plan Discharge Patient Disposition: Home Clinical Impression: Hypotension Qualifiers: Hypotension type: unspecified hypotension type Qualified Code(s): I95.9 - Hypotension, unspecified Condition: Stable Prescriptions: Discontinued metoprolol succinate 100 mg tablet extended release 24 hr 100 mg PO DAILY RF: 0 No Action allopurinol 100 mg tablet 100 mg PO DAILY RF: 0 ferrous sulfate 325 mg (65 mg iron) tablet 325 mg PO BID RF: 0 vitamin B complex [B Complex-Vitamin B12] Tablet 1 tab PO DAILY RF: 0 magnesium 250 mg tablet 250 mg PO DAILY RF: 0 acetaminophen 500 mg capsule 500 mg PO Q6H PRN (Reason: Pain, Mild) RF: 0 gabapentin 100 mg capsule 300 mg PO BID RF: 0 Entresto 24-26 mg tablet 1 tab PO BID Qty: 0 RF: 0 bumetanide 2 mg tablet 2 mg PO BID RF: 0 clopidogrel 75 mg Tablet 75 mg PO DAILY Qty: 90 RF: 1 pantoprazole 40 mg Tablet,Delayed Release (Dr/Ec) 40 mg PO DAILY Qty: 90 RF: 3 aspirin [Adult Aspirin Regimen] 81 mg tablet,delayed release (DR/EC) 81 mg PO DAILY Qty: 30 RF: 3 Discharge Orders: Discharge ED (Routine); Ordered 01/14/21 Ordered By: Paul Bowling Referrals: Janie Agustin MD [Primary Care Provider] - Discharge Diet: Advance as tolerated Discharge Activity: Use walker/crutches as instructed Patient Instructions: Hypotension (ED) Coding Level of Care Code ED 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
[2021-01-14 00:47] LABS: Basophils % 0.5 %; Eosinophils # 0.2 10^3/uL (0.0-0.8); Eosinophils % 2.3 %; Hematocrit 28.6 % (37.0-47.0); Hemoglobin 8.9 g/dL (11.5-15.3); Lymphocytes # 0.7 10^3/uL (0.8-4.8); Lymphocytes % 8.9 %; Mean Corpuscular HGB Conc 31.1 g/dL (30.0-36.0); Mean Corpuscular Hemoglobin 33.2 pg (28.0-34.0); Mean Corpuscular Volume 106.7 fl (81-99); Monocytes # 0.5 10^3/uL (0.2-0.9); Monocytes % 7.4 %; Neutrophils # 5.87 10^3/uL (1.8-7.7); Neutrophils % 80.4 %; Nucleated Red Blood Cells % 0 %; Platelet Count 323 10^3/cmm (130-400); Red Blood Count 2.68 10^6/uL (4.1-5.3); Red Cell Distribution Width 15.8 % (12.1-15.1); White Blood Count 7.3 10^3/uL (4.0-10.0)
[2021-01-14 01:05] LABS: Troponin(5th) Baseline 38 ng/L (0-10)
[2021-01-14 01:06] LABS: Anion Gap 17.9 (5-19); Blood Urea Nitrogen 73 mg/dL (8-23); Calcium 9.1 mg/dL (8.5-10.5); Carbon Dioxide 25 mmol/L (22-29); Chloride 101 mmol/L (98-107); Glucose 123 mg/dL (65-115); Osmolality Calculated 313 mOsm/kg (285-295); Potassium 3.9 mmol/L (3.5-5.1); Sodium 140 mmol/L (136-145)
[2021-01-14 01:07] LABS: Lactate (Lactic Acid level) 1.7 mmol/L (0.5-2.2)
[2021-01-14 02:09] VITALS: BP 111/59; PULSE 75; RESP 19; O2SAT 100
[2021-01-14] MEDS: sodium chloride 0.9% 1,000 ML 999 ML IV (02:30)
[2021-01-14 02:59] LABS: Troponin 5 2HR 34.19 ng/L (0-10)
[2021-01-14 03:01] LABS: Troponin 5 2HR Delta -3.81 ABS# (0-10)
[2021-01-14 04:07] LABS: Anion Gap 17.7 (5-19); Blood Urea Nitrogen 69 mg/dL (8-23); Calcium 8.7 mg/dL (8.5-10.5); Carbon Dioxide 21 mmol/L (22-29); Chloride 104 mmol/L (98-107); Glucose 157 mg/dL (65-115); Osmolality Calculated 311 mOsm/kg (285-295); Potassium 3.7 mmol/L (3.5-5.1); Sodium 139 mmol/L (136-145)
[2021-01-14 04:12] VITALS: BP 102/50; PULSE 60; RESP 20; TEMP 36.6; O2SAT 98
== END 2021-01-14 03:45 | disposition home or self-care (01) ==
PROVIDERS: Emergency Medicine; Absent Provider Internal Medicine; Emergency Provider Emergency Medicine; PCP Internal Medicine
DX: I95.9 Hypotension, unspecified (principal); I13.0 Hypertensive heart and chronic kidney disease with heart failure and stage 1 through stage 4 chronic kidney disease, or unspecified chronic kidney disease; N18.9 Chronic kidney disease, unspecified; I50.23 Acute on chronic systolic (congestive) heart failure; I48.91 Unspecified atrial fibrillation; J44.9 Chronic obstructive pulmonary disease, unspecified; Z86.73 Personal history of transient ischemic attack (TIA), and cerebral infarction without residual deficits; Z87.891 Personal history of nicotine dependence
CPT/HCPCS: 80048; 83605; 84484; 85025; 86850; 86900; 93005; 96360; 99284; J7030

== ENCOUNTER 2021-01-15 13:26 | Inpatient (IN) | payer MEDICARE, OTHER, SELFPAY ==
[2021-01-15] VITALS (8 sets, daily range): BP systolic 87–123; BP diastolic 33–96; PULSE 66–73; RESP 16–20; TEMP 36.3; O2SAT 90–100; BMI 31.4
--- NOTE | 2021-01-15 13:42 | XR_ITS ---
WS: [id number] Exam: XR chest 1V portable [id number] Date/Time of Exam: 01/15/2021 1:59 PM Reason For Exam: hypotension Comparison 12/11/2020. The lungs are fully expanded. No acute infiltrates are seen. Chronic changes in the right base. The h eart is enlarged but unchanged in size. No pneumothorax. Mild bilateral apical pleural thickening. A permanent cardiac pacer superimposes the left chest. Monitoring leads superimpose the chest. XR/XR chest 1V portable [id number] IMPRESSION: 1. Cardiac enlargement unchanged. 2. Chronic changes in the right base. No acute process identified.
--- NOTE | 2021-01-15 13:43 | ECG_ITS ---
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
[2021-01-15 13:52] LABS: Basophils % 0.2 %; Eosinophils % 0.1 %; Hematocrit 25.1 % (37.0-47.0); Hemoglobin 7.7 g/dL (11.5-15.3); Lymphocytes # 0.4 10^3/uL (0.8-4.8); Lymphocytes % 2.3 %; Mean Corpuscular HGB Conc 30.7 g/dL (30.0-36.0); Mean Corpuscular Hemoglobin 33.2 pg (28.0-34.0); Mean Corpuscular Volume 108.2 fl (81-99); Mean Platelet Volume 10.6 fL (7.4-10.4); Monocytes # 1.2 10^3/uL (0.2-0.9); Neutrophils # 15.26 10^3/uL (1.8-7.7); Neutrophils % 89.1 %; Nucleated Red Blood Cells % 0 %; Platelet Count 280 10^3/cmm (130-400); Red Blood Count 2.32 10^6/uL (4.1-5.3); Red Cell Distribution Width 16.3 % (12.1-15.1); White Blood Count 17.1 10^3/uL (4.0-10.0)
[2021-01-15] MEDS: sodium chloride 0.9% 1,000 ML 999 ML IV (14:10)
[2021-01-15 14:12] LABS: Troponin(5th) Baseline 39 ng/L (0-10)
[2021-01-15 14:23] LABS: NT Pro B Type Natriuretic Pept 4402 pg/mL (0-450); Procalcitonin 1.49 ng/mL (0-0.5); Thyroid Stimulating Hormone 1.15 uIU/mL (0.27-4.20)
[2021-01-15 14:31] LABS: Add Urine Microscopic? NO; Charge for UA Resulting for Rev
[2021-01-15 14:34] LABS: Alanine Aminotransferase 9 U/L (0-33); Albumin Level 3.4 g/dL (3.5-5.2); Alkaline Phosphatase 130 IU/L (35-105); Anion Gap 20.5 (5-19); Aspartate Amino Transferase 18 U/L (0-32); C Reactive Protein 84.4 mg/L (0.0-4.9); Carbon Dioxide 20 mmol/L (22-29); Chloride 102 mmol/L (98-107); Creatine Phosphokinase 21 U/L (26-192); Glucose 107 mg/dL (65-115); Potassium 4.5 mmol/L (3.5-5.1); Sodium 138 mmol/L (136-145); Total Bilirubin 0.8 mg/dL (0.15-1.2); Total Protein 5.4 g/dL (6.6-8.7)
[2021-01-15 14:38] LABS: Magnesium 2.6 mg/dL (1.7-2.3)
--- NOTE | 2021-01-15 14:38 | PC.PHAR ---
PT STATES SHE TAKES CARE OF HER OWN MEDICATIONS-PT STATES SHE TAKES THE MEDICATIONS ENTERED-PT STATES SHE WAS TAKING METOPROLOL ER 100MG DAILY LAST FILLED ON 10/22/20 90D/S-PT STATES DR ALEJANDRA BARNES THIS MEDICATION PT STATES SHE HASNT TAKEN SINCE Wednesday01/13/21
[2021-01-15 14:46] LABS: Bilirubin Urine Neg (Negative); Blood Urine Neg (Negative); Glucose Urine UA Norm (Normal); Ketones Urine Negative (Negative); Leukocyte Esterase Urine Negative (Negative); Nitrate Urine Negative (Negative); Protein Urine Neg (Negative); Urine Appearance Clear (CLEAR); Urine Color Yellow (Yellow); Urobilinogen Urine Neg (Negative); pH Urine 5 (5-7)
[2021-01-15 14:46] LABS: Blood Urea Nitrogen 67 mg/dL (8-23); Calcium 8.4 mg/dL (8.5-10.5); Osmolality Calculated 306 mOsm/kg (285-295)
[2021-01-15 14:55] LABS: SARS Covid-2 Antigen Negative (Negative)
[2021-01-15] MEDS: cefepime 2,000 MG in sodium chloride 0.9% (plus) 50 ML 100 MG IV (15:18)
[2021-01-15 15:26] LABS: Lactate (Lactic Acid level) 2.5 mmol/L (0.5-2.2)
--- NOTE | 2021-01-15 15:43 | ECG_ITS ---
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1945 Requested By: Anna Marie Palacios I Order Number: [id number] Reading MD: JACKELINE CARRIZALES Measurements Intervals [place] Rate: 72 P: -48 [place]: 181 QRS: -86 QRSD: 184 T: 82 QT: 514 QTc: 563 Interpretive Statements ELECTRONIC ATRIAL PACEMAKER ELECTRONIC VENTRICULAR PACEMAKER ABNORMAL RHYTHM ECG Compared to ECG 01/15/2021 13:59:02 Prolonged QT interval no longer present Electronically Signed On 01-15-2021 21:09:51 CDT by JACKELINE CARRIZALES [email or web address] (acquired by [id number]
--- NOTE | 2021-01-15 16:05 | XRR_ITS ---
PROCEDURE INFORMATION: Exam: XR Left Knee Exam date and time: 01/15/2021 4:05 PM Age: 75 years old Clinical indication: Injury or trauma; Fall; Blunt trauma; Knee; Left TECHNIQUE: Imaging protocol: XR Left knee. Views: 3 views. Total images: 3 COMPARISON: [place] [id number] 12/05/2020 4:21 PM FINDINGS: Bones/joints: No visible evidence of active or acute osseous pathology. No radiographically visible joint effusion. Osteopenia/osteoporosis. Mild primary osteoarthritis. Soft tissues: Soft tissues unremarkable for age. Vasculature: Vascular stent. XR/XR knee LT 3V* [id number] IMPRESSION: Nonacute.
--- NOTE | 2021-01-15 16:30 | P.HP_ITS ---
Providers/Chief Complaint Primary Care Provider: Janie Agustin MD Chief Complaint: fall, hypotension History of Present Illness Teena Timmons is a 75 year old female who presented today with chief complaint of leg weakness. Patient is stating that she sustained a fall today when she suddenly felt weak when her knee buckled around noon. She sustained a fall and fell on her left leg. She twisted her ankle. Did not lose consciousness, no recent fever, chest pain, shortness of breath. She is vaccinated with messenger RNA vaccine for COVID-19. No history of AICD discharge. Diagnostic work-up in the ER revealed hemoglobin 7.7, her baseline hemoglobin ranges between 10-11. Patient does take iron supplementation. 2 years ago she had colonoscopy when she developed lower GI bleed at that time she was on Pradaxa for her A. fib and DVT. Pradaxa was discontinued. She has history of peripheral arterial disease status post stents placed by Dr. Mendez in left leg. For her chronic kidney disease she is following up with Dr. Carolina. There is a plan for right leg angioplasty in January. Stool guaiac test positive in the ER, when she arrived her systolic blood pressure was soft, she was given 1 L normal saline, she was orthostatic positive, she was given cefepime for concern of pneumonia, requested CT chest and abdomen without contrast, positive guaiac test, Dr. Weems consulted Patient has been taking aspirin and Plavix, she is stating that she knows when her stool gets dark red and tarry but this time she has not noticed any significant changes. She was saturating well on room air I discontinued her nasal cannula oxygen supplementation Review of Systems Const: Denies: fever(s) or chills Eyes: Denies: change in vision ENMT: Denies: throat pain Card: Denies: chest pain Resp: Denies: dyspnea GI: Denies: abdominal pain : Denies: flank pain Musc: Denies: neck pain Skin/Breast: Reports: lesions Neuro: Denies: headache(s) Psych: Denies: anxiety Endo: Denies: polyuria Yovanny/Lymph: Reports: easy bruising All/Imm: Denies: urticaria Medications/Allergies Home Medications Medication Instructions Recorded Confirmed Last Taken Type ferrous sulfate 325 mg (65 mg 325 mg PO BID 06/28/19 01/15/21 01/15/21 09:00 History iron) tablet magnesium 250 mg tablet 250 mg PO QPM 06/28/19 01/15/21 01/14/21 History vitamin B complex 1 tab PO QPM 06/28/19 01/15/21 01/14/21 History allopurinol 100 mg tablet 100 mg PO QAM 07/06/19 01/15/21 01/15/21 09:00 History acetaminophen 500 mg capsule 500 - 1,000 mg PO Q6H PRN 01/12/20 01/15/21 01/15/21 09:00 History 1000 MG bumetanide 2 mg PO BID 12/05/20 01/15/21 01/15/21 09:00 History Entresto 1 tab PO BID #0 tab 12/14/20 01/15/21 01/15/21 09:00 Rx aspirin [Aspirin Low Dose] 81 mg PO QAM 01/15/21 01/15/21 01/15/21 09:00 History clopidogrel 75 mg PO QPM 01/15/21 01/15/21 01/14/21 History gabapentin 300 mg PO BID 01/15/21 01/15/21 01/15/21 09:00 History pantoprazole 40 mg PO QAM 01/15/21 01/15/21 01/15/21 09:00 History Allergies Allergy/AdvReac Type Severity Reaction Status Date / Time latex Allergy hives Verified 01/15/21 14:38 [id number]-[id number] Reductase AdvReac Intermediate ADR-Muscle Verified 01/15/21 14:3 8 Inhibitor Pain TPA Allergy Severe ALGY-Anaphy Uncoded 01/13/21 13:23 laxis PFSH Acute PFSH: Medical History Acute kidney injury superimposed on chronic kidney disease Acute on chronic systolic heart failure Acute renal failure Alcoholism in recovery Anemia Atrial fibrillation Breast cancer Cardiac resynchronization therapy defibrillator (SENIOR POLICY ASSOCIATE-D) in place Cardiomyopathy Carotid stenosis, bilateral CHF (congestive heart failure) Chronic systolic heart failure CKD (chronic kidney disease) Claudication Confusion COPD (chronic obstructive pulmonary disease) CVA (cerebral vascular accident) DJD (degenerative joint disease), lumbar HTN (hypertension) ICD (implantable cardioverter-defibrillator) in place Mitral regurgitation Non-ischemic cardiomyopathy VALE on CPAP Peripheral vascular disease Pneumonia Presence of Watchman left atrial appendage closure device PUD (peptic ulcer disease) PVCs (premature ventricular contractions) Surgical History History of cardiac radiofrequency ablation History of resection of meningioma Previous back surgery S/P cataract extraction S/P lumpectomy of breast Family History Sister Cancer Social History Smoking and tobacco status: former smoker Alcohol intake: former Other details last alcohol use: recovering alcoholic Household members: spouse Marital status: Vitals/I&O/Wt Last Vital Signs Temp 97.3 F L 01/15/21 13:28 Pulse 70 01/15/21 15:22 Resp 20 H 01/15/21 15:22 BP 104/41 01/15/21 15:22 Pulse Ox 100 01/15/21 15:22 01/15/21 01/15/21 01/15/21 06:59 14:59 22:59 Intake Total 1000 / 1000 Balance 1000 / 1000 Weight last 48 hrs Weight 88.451 kg Physical Exam Narrative: EXAM NARRATIVE: Patient was seen and examined in the ER at the bedside Very pleasant and cooperative during my evaluation Positive orthostatic symptoms Currently mean arterial pressure 70 Paced rhythm on telemetry No active signs of congestive heart failure Does not look dehydrated Distended abdomen with visceral obesity EOMI, PERRLA No neurological deficit Low symmetry no signs of ischemic ulcer cyanosis or gangrene No joint swelling Mild bruises of left knee noted no active signs of fractures or deformity of the joint Data : 01/15/21 13:45 01/15/21 13:45 Micro: Microbiology 01/15/21 13:45 Blood Culture - Preliminary Blood SPECIMEN COLLECTED 01/15/21 13:15 Blood Culture - Preliminary Blood SPECIMEN COLLECTED A&P Assessment and plan (1) Orthostatic dizziness: Status: Acute (2) Hypotension: Status: Acute Qualifiers: Hypotension type: unspecified hypotension type Qualified Code(s): I95.9 - Hypotension, unspecified (3) Peripheral vascular disease: Status: Acute (4) CHF (congestive heart failure): Status: Acute Qualifiers: Heart failure type: combined systolic and diastolic Heart failure chronicity: chronic Qualified Code(s): I50.42 - Chronic combined systolic (congestive) and diastolic (congestive) heart failure (5) Atrial fibrillation: Status: Acute Qualifiers: Atrial fibrillation type: persistent (not longstanding) Qualified Code(s): I48.19 - Other persistent atrial fibrillation (6) Presence of Watchman left atrial appendage closure device: Status: Acute (7) History of cardiac radiofrequency ablation: Status: Acute (8) Acute on chronic anemia: Status: Acute Additional A&P Information Orthostatic hypotension Stool guaiac positive Considering her significant cardiac history and peripheral arterial disease I would like to keep her hemoglobin above 8 Keep her on clear liquid diet 1 unit PRBC Patient does have history of GI bleed which was secondary to use of Pradaxa in the past around [address] Weems consulted notified by the ER physician Start Protonix 40mg IV twice daily and hold aspirin Plavix Reduced action fraction congestive heart failure Clinically does not show active signs of decompensation however BNP is high I would keep her Bumex 1 mg daily instead of twice a day because of hypotension AICD interrogation Acute on chronic anemia Macrocytic, will check B12 and folic level She may have neuropathy which contributed to her fall as well Requested 1 unit PRBC to keep hemoglobin above 8 We will keep her on Bumex to avoid fluid overload Acute on chronic kidney disease secondary to hypertension Hold Entresto and gabapentin Monitor urine output, she does make urine follows up with Dr. Carolina High inflammatory markers concern for community-acquired pneumonia requested CT chest with abdomen to rule out pneumonia she received antibiotics in the ER She is vaccinated with [employer] messenger RNA vaccine for COVID-19 Covid antigen negative Peripheral arterial disease no active signs of resting leg pain patient is stating that she has 2 stents in her left leg and she is due for angioplasty of right leg which is a preventive measures to avoid ischemia in the future and she knows that she is at risk of worsening of her kidney function if she goes for an angioplasty No active concerns I would hold aspirin Plavix for now Clear liquid diet Full code DVT prophylaxis: Contraindicated anticoagulating agent Monitor on SCDs considering peripheral arterial disease but no active ischemic ulcers Attestations Medical Necessity Statement*: Anticipating stay in the hospital cross more than 2 midnight Time Spent in Patient Care: Greater than 35 minutes Coding Level of Care Code Acute Document Review Specialist for Maday Shi Diagnoses Orthostatic dizziness R42 Hypotension I95.9 Hypotension type: unspecified hypotension type Peripheral vascular disease I73.9 CHF (congestive heart failure) I50.42 Heart failure type: combined systolic and diastolic Heart failure chronicity: chronic Atrial fibrillation I48.19 Atrial fibrillation type: persistent (not longstanding) Presence of Watchman left atrial appendage closure device Z95.818 History of cardiac radiofrequency ablation Z98.890 Acute on chronic anemia D64.9
[2021-01-15 17:21] LABS: Troponin 5 2HR 34.35 ng/L (0-10); Troponin 5 2HR Delta -4.65 ABS# (0-10)
--- NOTE | 2021-01-15 17:26 | CTR_ITS ---
PROCEDURE INFORMATION: Exam: CT Chest Without Contrast; Diagnostic Exam date and time: 01/15/2021 5:26 PM Age: 75 years old Clinical indication: Nausea; Shortness of breath; Prior surgery; Surgery type: Hyst, breast, pacer; Patient HX: HX breast cancer; Additional info: Hypotension, anemia, gi bleed TECHNIQUE: Imaging protocol: Diagnostic computed tomography of the chest without contrast. Total images: 561 Radiation optimization: All CT scans at this facility use at least one of these dose optimization techniques: automated exposure control; mA and/or kV adjustment per patient size (includes targeted exams where dose is matched to clinical indication); or iterative reconstruction. COMPARISON: CT chest wo con [id number] 05/04/2014 8:39 AM RADIATION DOSE METRICS: Total DLP (mGy-cm): 1909.33 FINDINGS: Tubes, catheters and devices: Pacemaker. Lungs: Moderate centrilobular emphysema. Minimal dependent atelectasis lung bases, left greater than right. No visible consolidated alveolar airspace disease. Pleural spaces: Small left pleural effusion. Heart: Cardiomegaly. Pericardial effusion of moderate volume largest depth posteriorly in the AP plane measuring 24 mm. Coronary artery disease. Atrial appendage cage. Cor pulmonale. Aorta: The thoracic aorta is nonaneurysmal. Moderately advanced arterial sclerotic disease. Lymph nodes: No definitive evidence of active mediastinal or hilar lymphadenopathy. Bones/joints: No visible active or acute osseous pathology. No visible osteolytic or osteoblastic destructive process. Age-appropriate degenerative disease and degenerative disc disease of the spine with increased thoracic kyphosis. Osteopenia/osteoporosis. Soft tissues: Unremarkable. IMPRESSION: 1. Moderate volume pericardial effusion. 2. Small left pleural effusion. 3. Moderate centrilobular emphysema. 4. Coronary artery disease. 5. Other nonurgent, nonemergent, chronic, and age related findings as detailed in text above. PROCEDURE INFORMATION: Exam: CT Abdomen And Pelvis Without Contrast Exam date and time: 01/15/2021 5:26 PM Age: 75 years old Clinical indication: Nausea; Shortness of breath; Prior surgery; Surgery type: Hyst, breast, pacer; Patient HX: HX breast cancer; Additional info: Hypotension, anemia, gi bleed TECHNIQUE: Imaging protocol: Computed tomography of the abdomen and pelvis without contrast. Radiation optimization: All CT scans at this facility use at least one of these dose optimization techniques: automated exposure control; mA and/or kV adjustment per patient size (includes targeted exams where dose is matched to clinical indication); or iterative reconstruction. COMPARISON: CT chest wo con [id number] 05/04/2014 8:39 AM RADIATION DOSE METRICS: Total DLP (mGy-cm): 1909.33 FINDINGS: Liver: No visible hepatic mass or cystic structure. Gallbladder and bile ducts: Normal. No calcified stones. No ductal dilation. Pancreas: Pancreas is unremarkable. No visible pancreatic ductal ectasia. Spleen: Spleen unremarkable. Adrenal glands: Adrenal glands unremarkable. Kidneys and ureters: No hydronephrosis or perinephric fluid. No visible nephrolithiasis or visible ureteral lithiasis. Stomach and bowel: Diverticulosis coli, primarily the sigmoid colon, but without visible evidence for acute diverticulitis. Nonobstructive bowel pattern. No visible adynamic or reactive ileus. Appendix: The appendix is visualized and appears noninflamed. Intraperitoneal space: No visible pneumoperitoneum or intraperitoneal ascites. Vasculature: The abdominal aorta is nonaneurysmal. Advanced arterial sclerotic disease. Lymph nodes: Unremarkable. No enlarged lymph nodes. Urinary bladder: Urinary bladder unremarkable. Reproductive: Status post hysterectomy. Bones/joints: No visible active or acute osseous pathology. No visible osteolytic or osteoblastic destructive process. Mild scoliotic curvature. Advanced degenerative disc disease with disc space height loss and vacuum disc phenomenon L2/L3 and L4/L5. Osteopenia/osteoporosis. Soft tissues: Unremarkable. CT/CT chest abd pel wo con IMPRESSION: 1. Currently no visible evidence for acute abdominal or pelvic pathologic process. 2. Diverticulosis coli without visible evidence for acute diverticulitis. 3. Other nonurgent, nonemergent, chronic, and age related findings as detailed in text above. Radiation Dose CTDIVOL = (mGy): DLP = 1909.33~1909.33 (mGy-cm)
--- NOTE | 2021-01-15 18:11 | ED_ITS ---
HPI - General Adult General: Chief complaint: General Medical Stated complaint: fall, hypotension Time Seen by Provider: 01/15/21 13:42 Source: patient, EMS, RN notes reviewed and old records reviewed Mode of arrival: ambulatory Limitations: no limitations History of Present Illness: HPI narrative: This 75 year old female presents via EMS with complaints of a fall. She was walking and her legs buckled under her. EMS states that her BP was 60s/20s. She states that she has been seen in this emergency department for hypotension recently. At that time her metoprolol was discontinued. She has a history of lower GI bleed and has had a colonoscopy 2 years ago for this. She denies any blood in her stool. She endorses some dizziness but denies chest pain. She complains of left knee pain. Associated symptoms: Reports malaise; Deny chest pain, confusion, cough, diaphoresis, decreased appetite, dyspnea, fevers/chills, headache(s), nausea, rash, palpitations, seizures, short of breath, syncope, vomiting or weakness Treatments prior to arrival: other (IV fluids) Review of Systems General: Reports: 10 or more systems reviewed and unremarkable except in HPI and below Const: Reports: malaise; Denies: diaphoresis Card: Denies: chest pain, palpitations or syncope Resp: Denies: dyspnea GI: Denies: nausea or vomiting Skin/Breast: Denies: rash Neuro: Denies: headache(s) or confusion PFSH ED PFSH: Medical History Acute kidney injury superimposed on chronic kidney disease Acute on chronic systolic heart failure Acute renal failure Alcoholism in recovery Anemia Atrial fibrillation Breast cancer Cardiac resynchronization therapy defibrillator (SPECIAL INVESTIGATOR-D) in place Cardiomyopathy Carotid stenosis, bilateral CHF (congestive heart failure) Chronic systolic heart failure CKD (chronic kidney disease) Claudication Confusion COPD (chronic obstructive pulmonary disease) CVA (cerebral vascular accident) DJD (degenerative joint disease), lumbar HTN (hypertension) ICD (implantable cardioverter-defibrillator) in place Mitral regurgitation Non-ischemic cardiomyopathy VALE on CPAP Peripheral vascular disease Pneumonia Presence of Watchman left atrial appendage closure device PUD (peptic ulcer disease) PVCs (premature ventricular contractions) Surgical History History of cardiac radiofrequency ablation History of resection of meningioma Previous back surgery S/P cataract extraction S/P lumpectomy of breast Family History Sister Cancer Social History Smoking and tobacco status: former smoker Alcohol intake: former Other details last alcohol use: recovering alcoholic Household members: spouse Marital status: Physical Exam Const: COMMON NORMALS: no acute distress, average body habitus, patient oriented x3, no limitations, healthy appearing, alert and well nourished HENMT: COMMON NORMALS: normocephalic, atraumatic and moist oral mucous membranes HEAD & SCALP: normocephalic and atraumatic Eye: COMMON NORMALS: Equal, round and reactive pupils present, EOMs intact bilaterally, conjunctivae normal and no scleral icterus CONJUNCTIVA: Yes conjunctivae normal PUPIL: Yes Equal, round and reactive pupils present Neck/C-Spine: COMMON NORMALS: full ROM, supple, no meningeal signs, no JVD and No carotid bruits Chest: COMMONS NORMALS: normal inspection of the chest and normal palpation of entire chest wall Resp: COMMON NORMALS: normal respiratory effort, No retractions, No use of accessory muscles, clear to auscultation bilaterally and percussion normal AUSCULTATION: clear to auscultation bilaterally PERCUSSION: percussion normal Cardio: COMMON NORMALS: no JVD, regular rate, regular rhythm, S1 normal heart sound present, S2 normal heart sound present, No gallops present (Cardio), No clicks present (Cardio), No murmurs present (Cardio), No rub (Cardio) and Peripheral pulses 2+ throughout RATE: regular rate RHYTHM: regular rhythm HEART SOUNDS: S1 normal heart sound present and S2 normal heart sound present PERIPHERAL PULSES: Peripheral pulses 2+ throughout GI: COMMON NORMALS: Normal to inspection, nondistended, normoactive bowel sounds present, Soft to palpation, non-tender, No hepatosplenomegaly present, no masses and no bruits PALPATION: Yes Soft to palpation and Yes No hepatosplenomegaly present RECTAL EXAM: visual inspection normal, normal sphincter tone, heme positive stool, No External hemorrhoid(s) present, No Internal hemorrhoid(s) present, No Rectal prolapse, no fecal impaction, no lesion(s) noted and no fissure noted Extremity: COMMON NORMALS: normal to inspection, full ROM, capillary refill normal, no calf tenderness and no pedal edema Neuro: COMMON NORMALS: patient oriented x3 SENSORIUM/ORIENTATION: Yes alert MENINGEAL SIGNS: Yes no meningeal signs Skin: COMMON NORMALS: no rashes or lesions noted, no wounds, turgor normal, no jaundice, no petechiae and no mottling GENERAL SKIN EXAM: no rashes or lesions noted and turgor normal Course Consultations: Consultation #1: Discussed the patient with Dr. Veras, hospitalist and he kindly accepted the patient to his service. Time: 16:02 Consultation #2: Discussed the patient with Dr. Weems, who is on-call for gastroenterology. He agreed to see this patient while she is in the hospital and perform a colonoscopy. Time: 16:18 Vital Signs: Vital signs: Vital Signs Temperature 97.3 F L 01/15/21 13:28 Pulse Rate 70 01/15/21 18:48 Respiratory Rate 18 01/15/21 16:57 Blood Pressure 106/42 01/15/21 18:48 Pulse Oximetry 98 01/15/21 16:57 MDM - General Adult MDM Narrative: Medical decision making narrative: 75-year-old female patient who was brought into the emergency department following a fall today. During the fall she did not hit her head and did not lose consciousness. However when EMS arrived she was significantly hypotensive and she was brought in here to be evaluated. In the emergency department she continued to be hypotensive and required fluid for resuscitation. She has an elevated white cell count, significantly elevated procalcitonin, elevated CRP. Because of her heme positive stool and the fact that her hemoglobin dropped by more than 1 g in 24 hours she has been admitted for lower GI bleed and will have a colonoscopy in the hospital. She is also going to be managed at this time as a case of community-acquired pneumonia. She was given a dose of intravenous cefepime in the ED. throughout her ED stay I updated her on the progress of her lab results and imaging results. Advised that it is possible that she will need a colonoscopy while in the hospital. Medical Records: Attestation: I reviewed the patient's medical records. Lab Data: Attestation: I reviewed the patient's lab results. Labs: Lab Results 01/15/21 01/15/21 01/15/21 Range/Units 13:45 13:45 13:45 WBC 17.1 H (4.0-10.0) 10^3/ uL RBC 2.32 L (4.1-5.3) 10^6/u L Hgb 7.7 L (11.5-15.3) g/dL Hct 25.1 L (37.0-47.0) % MCV 108.2 H (81-99) fl MCH 33.2 (28.0-34.0) pg MCHC 30.7 (30.0-36.0) g/dL RDW 16.3 H (12.1-15.1) % Plt Count 280 (130-400) 10^3/c mm MPV 10.6 H (7.4-10.4) fL Neut % (Auto) 89.1 % Lymph % (Auto) 2.3 % Price % (Auto) 7.0 % Eos % (Auto) 0.1 % Baso % (Auto) 0.2 % Neut # (Auto) 15.26 H (1.8-7.7) 10^3/u L Lymph # (Auto) 0.4 L (0.8-4.8) 10^3/u L Price # (Auto) 1.2 H (0.2-0.9) 10^3/u L Eos # (Auto) 0.0 (0.0-0.8) 10^3/u L Baso # (Auto) 0.0 (0.0-0.1) 10^3/u L Nucleated RBC % (a uto) 0 % Nucleated RBCs # 0.0 /100WBC Sodium 138 (136-145) mmol/L Potassium 4.5 (3.5-5.1) mmol/L Chloride 102 (98-107) mmol/L Carbon Dioxide 20 L (22-29) mmol/L Anion Gap 20.5 H (5-19) BUN 67 H (8-23) mg/dL Creatinine 2.3 H (0.5-0.9) mg/dL GFR Calculation Not Reportable Glucose 107 (65-115) mg/dL Calculated Osmolal ity 306 H (285-295) mOsm/k g Lactate (0.5-2.2) mmol/L Calcium 8.4 L (8.5-10.5) mg/dL Magnesium (1.7-2.3) mg/dL Total Bilirubin 0.8 (0.15-1.2) mg/dL AST 18 (0-32) U/L ALT 9 (0-33) U/L Alkaline Phosphata se 130 H (35-105) IU/L Creatine Kinase 21 L (26-192) U/L Troponin T Baselin e 39 H (0-10) ng/L C-Reactive Protein 84.4 H (0.0-4.9) mg/L NT-Pro-B Natriuret Pep 4402 H (0-450) pg/mL Total Protein 5.4 L (6.6-8.7) g/dL Albumin 3.4 L (3.5-5.2) g/dL Globulin 2.0 (1.3-4.6) g/dL Vitamin B12 (232-1245) pg/mL Folate (4.8-37.3) ng/mL Procalcitonin 1.49 H (0-0.5) ng/mL TSH 1.15 (0.27-4.20) uIU/ mL Urine Color (Yellow) Urine Appearance (CLEAR) Urine pH (5-7) Ur Specific Gravit y (1.005-1.030) Urine Protein (Negative) Urine Glucose (UA) (Normal) Urine Ketones (Negative) Urine Blood (Negative) Urine Nitrate (Negative) Urine Bilirubin (Negative) Urine Urobilinogen (Negative) mg/dL Ur Leukocyte Dunia ase (Negative) SARS-CoV-2 Ag (Rap id) (Negative) 01/15/21 01/15/21 01/15/21 Range/Units 13:45 13:45 13:45 WBC (4.0-10.0) 10^3/ uL RBC (4.1-5.3) 10^6/u L Hgb (11.5-15.3) g/dL Hct (37.0-47.0) % MCV (81-99) fl MCH (28.0-34.0) pg MCHC (30.0-36.0) g/dL RDW (12.1-15.1) % Plt Count (130-400) 10^3/c mm MPV (7.4-10.4) fL Neut % (Auto) % Lymph % (Auto) % Price % (Auto) % Eos % (Auto) % Baso % (Auto) % Neut # (Auto) (1.8-7.7) 10^3/u L Lymph # (Auto) (0.8-4.8) 10^3/u L Price # (Auto) (0.2-0.9) 10^3/u L Eos # (Auto) (0.0-0.8) 10^3/u L Baso # (Auto) (0.0-0.1) 10^3/u L Nucleated RBC % (a uto) % Nucleated RBCs # /100WBC Sodium (136-145) mmol/L Potassium (3.5-5.1) mmol/L Chloride (98-107) mmol/L Carbon Dioxide (22-29) mmol/L Anion Gap (5-19) BUN (8-23) mg/dL Creatinine (0.5-0.9) mg/dL GFR Calculation Glucose (65-115) mg/dL Calculated Osmolal ity (285-295) mOsm/k g Lactate 2.5 H (0.5-2.2) mmol/L Calcium (8.5-10.5) mg/dL Magnesium 2.6 H (1.7-2.3) mg/dL Total Bilirubin (0.15-1.2) mg/dL AST (0-32) U/L ALT (0-33) U/L Alkaline Phosphata se (35-105) IU/L Creatine Kinase (26-192) U/L Troponin T Baselin e (0-10) ng/L C-Reactive Protein (0.0-4.9) mg/L NT-Pro-B Natriuret Pep (0-450) pg/mL Total Protein (6.6-8.7) g/dL Albumin (3.5-5.2) g/dL Globulin (1.3-4.6) g/dL Vitamin B12 (232-1245) pg/mL Folate 14.6 (4.8-37.3) ng/mL Procalcitonin (0-0.5) ng/mL TSH (0.27-4.20) uIU/ mL Urine Color (Yellow) Urine Appearance (CLEAR) Urine pH (5-7) Ur Specific Gravit y (1.005-1.030) Urine Protein (Negative) Urine Glucose (UA) (Normal) Urine Ketones (Negative) Urine Blood (Negative) Urine Nitrate (Negative) Urine Bilirubin (Negative) Urine Urobilinogen (Negative) mg/dL Ur Leukocyte Dunia ase (Negative) SARS-CoV-2 Ag (Rap id) (Negative) 01/15/21 01/15/21 01/15/21 Range/Units 13:45 14:19 14:19 WBC (4.0-10.0) 10^3/ uL RBC (4.1-5.3) 10^6/u L Hgb (11.5-15.3) g/dL Hct (37.0-47.0) % MCV (81-99) fl MCH (28.0-34.0) pg MCHC (30.0-36.0) g/dL RDW (12.1-15.1) % Plt Count (130-400) 10^3/c mm MPV (7.4-10.4) fL Neut % (Auto) % Lymph % (Auto) % Price % (Auto) % Eos % (Auto) % Baso % (Auto) % Neut # (Auto) (1.8-7.7) 10^3/u L Lymph # (Auto) (0.8-4.8) 10^3/u L Price # (Auto) (0.2-0.9) 10^3/u L Eos # (Auto) (0.0-0.8) 10^3/u L Baso # (Auto) (0.0-0.1) 10^3/u L Nucleated RBC % (a uto) % Nucleated RBCs # /100WBC Sodium (136-145) mmol/L Potassium (3.5-5.1) mmol/L Chloride (98-107) mmol/L Carbon Dioxide (22-29) mmol/L Anion Gap (5-19) BUN (8-23) mg/dL Creatinine (0.5-0.9) mg/dL GFR Calculation Glucose (65-115) mg/dL Calculated Osmolal ity (285-295) mOsm/k g Lactate (0.5-2.2) mmol/L Calcium (8.5-10.5) mg/dL Magnesium (1.7-2.3) mg/dL Total Bilirubin (0.15-1.2) mg/dL AST (0-32) U/L ALT (0-33) U/L Alkaline Phosphata se (35-105) IU/L Creatine Kinase (26-192) U/L Troponin T Baselin e (0-10) ng/L C-Reactive Protein (0.0-4.9) mg/L NT-Pro-B Natriuret Pep (0-450) pg/mL Total Protein (6.6-8.7) g/dL Albumin (3.5-5.2) g/dL Globulin (1.3-4.6) g/dL Vitamin B12 854 (232-1245) pg/mL Folate (4.8-37.3) ng/mL Procalcitonin (0-0.5) ng/mL TSH (0.27-4.20) uIU/ mL Urine Color Yellow (Yellow) Urine Appearance Clear (CLEAR) Urine pH 5 (5-7) Ur Specific Gravit y 1.010 (1.005-1.030) Urine Protein Neg (Negative) Urine Glucose (UA) Norm (Normal) Urine Ketones Negative (Negative) Urine Blood Neg (Negative) Urine Nitrate Negative (Negative) Urine Bilirubin Neg (Negative) Urine Urobilinogen Neg (Negative) mg/dL Ur Leukocyte Dunia ase Negative (Negative) SARS-CoV-2 Ag (Rap id) Negative (Negative) Imaging Data^: Other CT: Attestation: I personally reviewed and interpreted this imaging study as follows: Radiologist's impression: [address] [id number] Scan ReportSigned Patient: Teena Timmons #: [id number]: 4[facility]#:[id number]/Sex: 75 / FADM Date: 01/15/21Loc: ERRoom/Bed:Attending Dr: Ordering Provider/Ordering MD: Anna Marie Palacios MD, [facility] [place] Date of Service: 01/15/21 Procedure(s): CT chest abd pel wo con Accession Number(s): [id number] Report Number: [id number] PROCEDURE INFORMATION: Exam: CT Chest Without Contrast; Diagnostic Exam date and time: 01/15/2021 5:26 PM Age: 75 years old Clinical indication: Nausea; Shortness of breath; Prior surgery; Surgery type: Hyst, breast, pacer; Patient HX: HX breast cancer; Additional info: Hypotension, anemia, gi bleed TECHNIQUE: Imaging protocol: Diagnostic computed tomography of the chest without contrast. Total images: 561 Radiation optimization: All CT scans at this facility use at least one of these dose optimization techniques: automated exposure control; mA and/or kV adjustment per patient size (includes targeted exams where dose is matched to clinical indication); or iterative reconstruction. COMPARISON: CT chest [facility] [id number] 05/04/2014 8:39 AM RADIATION DOSE METRICS: Total DLP (mGy-cm): 1909.33 FINDINGS: Tubes, catheters and devices: Pacemaker. Lungs: Moderate centrilobular emphysema. Minimal dependent atelectasis lung bases, left greater than right. No visible consolidated alveolar airspace disease. Pleural spaces: Small left pleural effusion. Heart: Cardiomegaly. Pericardial effusion of moderate volume largest depth posteriorly in the AP plane measuring 24 mm. Coronary artery disease. Atrial appendage cage. Cor pulmonale. Aorta: The thoracic aorta is nonaneurysmal. Moderately advanced arterial sclerotic disease. Lymph nodes: No definitive evidence of active mediastinal or hilar lymphadenopathy. Bones/joints: No visible active or acute osseous pathology. No visible osteolytic or osteoblastic destructive process. Age-appropriate degenerative disease and degenerative disc disease of the spine with increased thoracic kyphosis. Osteopenia/osteoporosis. Soft tissues: Unremarkable. IMPRESSION: 1. Moderate volume pericardial effusion. 2. Small left pleural effusion. 3. Moderate centrilobular emphysema. 4. Coronary artery disease. 5. Other nonurgent, nonemergent, chronic, and age related findings as detailed in text above. PROCEDURE INFORMATION: Exam: CT Abdomen And Pelvis Without Contrast Exam date and time: 01/15/2021 5:26 PM Age: 75 years old Clinical indication: Nausea; Shortness of breath; Prior surgery; Surgery type: Hyst, breast, pacer; Patient HX: HX breast cancer; Additional info: Hypotension, anemia, gi bleed TECHNIQUE: Imaging protocol: Computed tomography of the abdomen and pelvis without contrast. Radiation optimization: All CT scans at this facility use at least one of these dose optimization techniques: automated exposure control; mA and/or kV adjustment per patient size (includes targeted exams where dose is matched to clinical indication); or iterative reconstruction. COMPARISON: CT chest wo con [id number] 05/04/2014 8:39 AM RADIATION DOSE METRICS: Total DLP (mGy-cm): 1909.33 FINDINGS: Liver: No visible hepatic mass or cystic structure. Gallbladder and bile ducts: Normal. No calcified stones. No ductal dilation. Pancreas: Pancreas is unremarkable. No visible pancreatic ductal ectasia. Spleen: Spleen unremarkable. Adrenal glands: Adrenal glands unremarkable. Kidneys and ureters: No hydronephrosis or perinephric fluid. No visible nephrolithiasis or visible ureteral lithiasis. Stomach and bowel: Diverticulosis coli, primarily the sigmoid colon, but without visible evidence for acute diverticulitis. Nonobstructive bowel pattern. No visible adynamic or reactive ileus. Appendix: The appendix is visualized and appears noninflamed. Intraperitoneal space: No visible pneumoperitoneum or intraperitoneal ascites. Vasculature: The abdominal aorta is nonaneurysmal. Advanced arterial sclerotic disease. Lymph nodes: Unremarkable. No enlarged lymph nodes. Urinary bladder: Urinary bladder unremarkable. Reproductive: Status post hysterectomy. Bones/joints: No visible active or acute osseous pathology. No visible osteolytic or osteoblastic destructive process. Mild scoliotic curvature. Advanced degenerative disc disease with disc space height loss and vacuum disc phenomenon L2/L3 and L4/L5. Osteopenia/osteoporosis. Soft tissues: Unremarkable. CT/CT chest abd pel wo con IMPRESSION: 1. Currently no visible evidence for acute abdominal or pelvic pathologic process. 2. Diverticulosis coli without visible evidence for acute diverticulitis. 3. Other nonurgent, nonemergent, chronic, and age related findings as detailed in text above. Radiation Dose CTDIVOL = (mGy): DLP = 1909.33~1909.33 (mGy-cm) Dictated By:Alban Calderon By:Alban Calderon Date/Time:01/15/21 1842DD/ 1840 Xray Ortho: Attestation: I personally reviewed and interpreted this imaging study as follows: Radiologist's impression: [address], [place] [address]SAuj ReportSigned Patient: Teena Timmons #: [id number]: 1943cct#:[id number]/Sex: 75 / FADM Date: 01/15/21Loc: ERRoom/Bed:Attending Dr: Ordering Provider/Ordering MD: Anna Marie Palacios MD, [facility] [place] Date of Service: 01/15/21 Procedure(s): XR knee LT 3V* [id number] Accession Number(s): [id number] Report Number: [id number] PROCEDURE INFORMATION: Exam: XR Left Knee Exam date and time: 01/15/2021 4:05 PM Age: 75 years old Clinical indication: Injury or trauma; Fall; Blunt trauma; Knee; Left TECHNIQUE: Imaging protocol: XR Left knee. Views: 3 views. Total images: 3 COMPARISON: [place] [id number] 12/05/2020 4:21 PM FINDINGS: Bones/joints: No visible evidence of active or acute osseous pathology. No radiographically visible joint effusion. Osteopenia/osteoporosis. Mild primary osteoarthritis. Soft tissues: Soft tissues unremarkable for age. Vasculature: Vascular stent. XR/XR knee LT 3V* [id number] IMPRESSION: Nonacute. Dictated By:Alban Calderon By:Alban Calderon Date/Time:01/15/21 1648DD/ 1647 CXR: Attestation: I personally reviewed and interpreted this imaging study as follows: Radiologist's impression: [id number], [place] [address]TCnz ReportSigned Patient: Teena Timmons #: [id number]: [id number]#:[id number]/Sex: FADM Date: 01/15/21Loc: ERRoom/Bed:Attending Dr: Ordering Provider/Ordering MD: Anna Marie Palacios MD, [facility] [place] Date of Service: 01/15/21 Procedure(s): XR chest 1V portable [id number] Accession Number(s): [id number] Report Number: [id number] WS: [id number] Exam: XR chest 1V portable [id number] Date/Time of Exam: 01/15/2021 1:59 PM Reason For Exam: hypotension Comparison 12/11/2020. The lungs are fully expanded. No acute infiltrates are seen. Chronic changes in the right base. The heart is enlarged but unchanged in size. No pneumothorax. Mild bilateral apical pleural thickening. A permanent cardiac pacer superimposes the left chest. Monitoring leads superimpose the chest. XR/XR chest 1V portable [id number] IMPRESSION: 1. Cardiac enlargement unchanged. 2. Chronic changes in the right base. No acute process identified. Dictated By:Mansoor John, DOSigned By:Mansoor John, DOSigned Date/Time:01/15/211417DD/ EKG Data^: EKG 1: Attestation: I personally reviewed and interpreted this EKG as follows: EKG interpretation date: 01/15/21 EKG interpretation time: 13:59 Prior EKG tracings: not available for review Interpretation: Electronic pacemaker rhythm. Heart rate [address] changes. Computer generated interpretation: Chest X-Ray 01/15/21 13:42 IMPRESSION: 1. Cardiac enlargement unchanged. 2. Chronic changes in the right base. No acute process identified. Knee X-Ray 01/15/21 16:05 IMPRESSION: Nonacute. Chest/Abdomen/Pelvis CT 01/15/21 17:26 IMPRESSION: 1. Currently no visible evidence for acute abdominal or pelvic pathologic process. 2. Diverticulosis coli without visible evidence for acute diverticulitis. 3. Other nonurgent, nonemergent, chronic, and age related findings as detailed in text above. Radiation Dose CTDIVOL = (mGy): DLP = 1909.33~1909.33 (mGy-cm) EKG 2: Attestation: I personally reviewed and interpreted this EKG as follows: EKG interpretation date: 01/15/21 EKG interpretation time: 15:35 Prior EKG tracings: available for review Interpretation: Paced rhythm. Heart rate [address] changes. Computer generated interpretation: Chest X-Ray 01/15/21 13:42 IMPRESSION: 1. Cardiac enlargement unchanged. 2. Chronic changes in the right base. No acute process identified. Knee X-Ray 01/15/21 16:05 IMPRESSION: Nonacute. Chest/Abdomen/Pelvis CT 01/15/21 17:26 IMPRESSION: 1. Currently no visible evidence for acute abdominal or pelvic pathologic process. 2. Diverticulosis coli without visible evidence for acute diverticulitis. 3. Other nonurgent, nonemergent, chronic, and age related findings as detailed in text above. Radiation Dose CTDIVOL = (mGy): DLP = 1909.33~1909.33 (mGy-cm) EKG 3: Attestation: I personally reviewed and interpreted this EKG as follows: EKG interpretation date: 01/15/21 EKG interpretation time: 20:24 Prior EKG tracings: available for review Interpretation: Paced rhythm. Heart rate [address] changes. No significant change from earlier. Computer generated interpretation: Chest X-Ray 01/15/21 13:42 IMPRESSION: 1. Cardiac enlargement unchanged. 2. Chronic changes in the right base. No acute process identified. Knee X-Ray 01/15/21 16:05 IMPRESSION: Nonacute. Chest/Abdomen/Pelvis CT 01/15/21 17:26 IMPRESSION: 1. Currently no visible evidence for acute abdominal or pelvic pathologic process. 2. Diverticulosis coli without visible evidence for acute diverticulitis. 3. Other nonurgent, nonemergent, chronic, and age related findings as detailed in text above. Radiation Dose CTDIVOL = (mGy): DLP = 1909.33~1909.33 (mGy-cm) Discharge Plan Discharge Patient Disposition: Admitted As Inpatient Admit Provider: Estrella Veras Clinical Impression: Hypotension, Acute on chronic anemia, Pericardial effusion, Lower GI bleed Condition: Stable Coding Level of Care Code ED Art History Instructor for Maday Shi
[2021-01-15 19:02] LABS: Folate Level 14.6 ng/mL (4.8-37.3)
--- NOTE | 2021-01-15 19:02 | P.CONIM_ITS ---
Providers/Reason For Consult Consulting Physician/Specialty*: Endoscopist Reason for Consult*: Anemia, Hemoccult positive stools, history of gastric ulcer Primary Care Provider: Janie Agustin MD History of Present Illness History of Present Illness Teena Timmons is a 75 year old female who presented to the ER today initial leg weakness and falling. In the emergency room she was found to have a hemoglobin of 7.7. A review of her recent hemoglobins noted a hemoglobin of 11.2 on December 19 then later hemoglobin of 8.8 on January 10, and finally a hemoglobin of 7.7 today in the emergency room. A Hemoccult stool was performed in the emergency room and found to be grossly positive. The patient denies any obvious rectal bleeding. She states that she has had dark stool for several weeks now. She states that she has a bowel movement usually once a day midmorning. She has not noted any increase in her bowel movements and she has not noticed any change in her bowels. The patient did have a colonoscopy and EGD performed by Dr. Puente in [facility] about 2 years ago per the patient. She states that her colonos copy was normal, and that her EGD had a cluster of ulcers that were cauterized by Dr. Puente. She states she has not had any problems since that time. The patient is currently on aspirin and clopidogrel as well as Protonix. These were prescribed by Dr. Painter for the patient. She does not recall, but she apparently was taken off of the blood thinners and placed on Plavix and aspirin because of a history of bleeding. Her last dose of Plavix and aspirin were taken last night. Review of Systems General: Reports: 10 or more systems reviewed and unremarkable except in HPI and below Const: Denies: fever(s) Card: Denies: chest pain or irregular heart rhythm Resp: Denies: dyspnea Musc: Reports: extremity pain (Resulting from her fall today) Yovanny/Lymph: Reports: easy bruising Meds/Allergies Home Medications and Allergies Home Medications Medication Instructions Recorded Confirmed Last Taken Type ferrous sulfate 325 mg (65 mg 325 mg PO BID 06/28/19 01/15/21 01/15/21 09:00 History iron) tablet magnesium 250 mg tablet 250 mg PO QPM 06/28/19 01/15/21 01/14/21 History vitamin B complex 1 tab PO QPM 06/28/19 01/15/21 01/14/21 History allopurinol 100 mg tablet 100 mg PO QAM 07/06/19 01/15/21 01/15/21 09:00 History acetaminophen 500 mg capsule 500 - 1,000 mg PO Q6H PRN 01/12/20 01/15/21 01/15/21 09:00 History 1000 MG bumetanide 2 mg PO BID 12/05/20 01/15/21 01/15/21 09:00 History Entresto 1 tab PO BID #0 tab 12/14/20 01/15/21 01/15/21 09:00 Rx aspirin [Aspirin Low Dose] 81 mg PO QAM 01/15/21 01/15/21 01/15/21 09:00 History clopidogrel 75 mg PO QPM 01/15/21 01/15/21 01/14/21 History gabapentin 300 mg PO BID 01/15/21 01/15/21 01/15/21 09:00 History pantoprazole 40 mg PO QAM 01/15/21 01/15/21 01/15/21 09:00 History Allergies Allergy/AdvReac Type Severity Reaction Status Date / Time latex Allergy hives Verified 01/15/21 14:38 Bhclgmv-Bqc-Cqu Reductase AdvReac Intermediate ADR-Muscle Verified 01/15/21 14:38 Inhibitor Pain TPA Allergy Severe ALGY-Anaphy Uncoded 01/13/21 13:23 laxis PFSH Acute PFSH: Medical History Acute kidney injury superimposed on chronic kidney disease Acute on chronic systolic heart failure Acute renal failure Alcoholism in recovery Anemia Atrial fibrillation Breast cancer Cardiac resynchronization therapy defibrillator (HARD CANDY BATCH MIXER-D) in place Cardiomyopathy Carotid stenosis, bilateral CHF (congestive heart failure) Chronic systolic heart failure CKD (chronic kidney disease) Claudication Confusion COPD (chronic obstructive pulmonary disease) CVA (cerebral vascular accident) DJD (degenerative joint disease), lumbar HTN (hypertension) ICD (implantable cardioverter-defibrillator) in place Mitral regurgitation Non-ischemic cardiomyopathy VALE on CPAP Peripheral vascular disease Pneumonia Presence of Watchman left atrial appendage closure device PUD (peptic ulcer disease) PVCs (premature ventricular contractions) Surgical History History of cardiac radiofrequency ablation History of resection of meningioma Previous back surgery S/P cataract extraction S/P lumpectomy of breast Family History Sister Cancer Social History Smoking and tobacco status: former smoker Alcohol intake: former Other details last alcohol use: recovering alcoholic Household members: spouse Marital status: Vitals/I&O/Wt Last Vital Signs Temp 97.3 F L 01/15/21 13:28 Pulse 70 01/15/21 18:48 Resp 18 01/15/21 16:57 BP 106/42 01/15/21 18:48 Pulse Ox 98 01/15/21 16:57 01/15/21 01/15/21 01/15/21 06:59 14:59 22:59 Intake Total 1050 / 1050 Balance 1050 / 1050 Weight last 48 hrs Weight 195 lb Physical Exam Const: COMMON NORMALS: no acute distress and patient oriented x3 GENERAL APPEARANCE: cooperative and comfortable HENMT: COMMON NORMALS: normocephalic and moist oral mucous membranes HEAD & SCALP: normocephalic Chest: COMMONS NORMALS: normal inspection of the chest Resp: COMMON NORMALS: normal respiratory effort and clear to auscultation bilaterally AUSCULTATION: clear to auscultation bilaterally Cardio: COMMON NORMALS: regular rate, regular rhythm, No gallops present (Cardio), No murmurs present (Cardio) and No rub (Cardio) RATE: regular rate RHYTHM: regular rhythm GI: COMMON NORMALS: Normal to inspection, nondistended, normoactive bowel sounds present PALPATION: Yes Tenderness to palpation present (GI) (Mild tenderness noted in lower quadrants.) Extremity: COMMON NORMALS: normal to inspection Neuro: COMMON NORMALS: patient oriented x3 and no focal motor deficits Skin: COMMON NORMALS: no rashes or lesions noted GENERAL SKIN EXAM: no rashes or lesions noted Data Micro: Micro: Microbiology 01/15/21 13:45 Blood Culture - Pr eliminary Blood SPECIMEN [facility] 01/15/21 13:15 Blood Culture - Pr eliminary Blood SPECIMEN [facility] A&P Assessment and plan (1) Acute on chronic anemia: Given the subacute drop in her hemoglobin from 11.2-7.7 over period of about a month, and no obvious source of bleeding, she would benefit from an evaluation of her gastrointestinal tract. Given her history of gastric ulcers, her recent colonoscopy, and lack of bright red bleeding, I believe she should have an EGD, but does not need a colonoscopy inpatient. She has been taking aspirin and Plavix, and it is likely that she has developed another gastric ulcer. Has scheduled an EGD for 145 tomorrow. Of note, the patient does have a high MCV which would suggest a multifactorial cause to her anemia. Her folic acid is normal, and her vitamin B12 is pending. She may also benefit from a bone marrow evaluation. Regardless, she needs to have an EGD tomorrow to rule out a probable gastrointestinal component. I discussed the risks of bleeding, perforation, and sedation to the patient and her . They had no further questions and wished to proceed. 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
[2021-01-15 19:11] LABS: Vitamin B12 854 pg/mL (232-1245)
--- NOTE | 2021-01-15 19:43 | ECG_ITS ---
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
[2021-01-15 20:00] LABS: Troponin 5 6HR 35.35 ng/L (0-10)
[2021-01-15 20:02] LABS: Troponin 5 6HR Delta -3.65 ng/L (0-12)
[2021-01-15] MEDS: fentaNYL 50 mcg/mL INJ 2mL 25 MCG IVP (22:45)
[2021-01-16] VITALS (28 sets, daily range): BP systolic 99–148; BP diastolic 45–74; PULSE 69–117; RESP 12–20; TEMP 36.7–37.5; O2SAT 91–98; BMI 35.6
--- NOTE | 2021-01-16 03:12 | PC.NURSE ---
Patient arrived to floor via stretcher, c/o pain to LLE, PRBC transfusing. Patient needing to use restroom, place bedside commode for patient to use. 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 Patient does not appear to have any skin breakdown, patient does have a large raised non-proportional mole to upper back. Patient requesting food and pain medications however patient is NPO with sips and patient has tylenol ordered but says that does not assist with pain.
[2021-01-16] MEDS: morphine 4 mg/mL SDV 1 mL 2 MG IVP ×4 (04:30→23:48)
[2021-01-16 05:28] LABS: Basophils % 0.3 %; Eosinophils # 0.1 10^3/uL (0.0-0.8); Eosinophils % 0.6 %; Hematocrit 28.5 % (37.0-47.0); Hemoglobin 8.5 g/dL (11.5-15.3); Lymphocytes # 0.4 10^3/uL (0.8-4.8); Lymphocytes % 4.4 %; Mean Corpuscular HGB Conc 29.8 g/dL (30.0-36.0); Mean Corpuscular Hemoglobin 32.3 pg (28.0-34.0); Mean Corpuscular Volume 108.4 fl (81-99); Mean Platelet Volume 10.7 fL (7.4-10.4); Monocytes # 0.8 10^3/uL (0.2-0.9); Monocytes % 7.9 %; Neutrophils % 86.3 %; Nucleated Red Blood Cells % 0 %; Platelet Count 225 10^3/cmm (130-400); Red Blood Count 2.63 10^6/uL (4.1-5.3); Red Cell Distribution Width 17.6 % (12.1-15.1)
[2021-01-16 05:53] LABS: Anion Gap 16.3 (5-19); Blood Urea Nitrogen 63 mg/dL (8-23); Calcium 8.5 mg/dL (8.5-10.5); Carbon Dioxide 21 mmol/L (22-29); Chloride 107 mmol/L (98-107); Glucose 101 mg/dL (65-115); Magnesium 2.8 mg/dL (1.7-2.3); Osmolality Calculated 308 mOsm/kg (285-295); Potassium 4.3 mmol/L (3.5-5.1); Sodium 140 mmol/L (136-145)
--- NOTE | 2021-01-16 06:01 | PC.NURSE ---
Patient resting comfortably after receiving ordered pain medication. No needs at this time. Will report and handoff to oncoming nurse at shift change.
[2021-01-16] MEDS: allopurinol 100 mg Tablet PO (06:20)
[2021-01-16] MEDS: pantoprazole 40 mg SDV IVP ×2 (09:12→17:55)
[2021-01-16] MEDS: cefTRIAXone 1,000 MG in sodium chloride 0.9% (plus) 50 ML 100 MG IV (09:13)
[2021-01-16] MEDS: sodium chloride 0.9% 1,000 ML 30 ML IV (13:44)
--- NOTE | 2021-01-16 13:47 | P.ANESASSM_ITS ---
Pre-Anesthetic Assessment Pre-Anesthetic Assessment: Height/Weight: Height 1.68 m Weight 100.301 kg Temp Pulse Resp BP Pulse Ox 98.2 F 72 18 130/46 96 01/16/21 13:27 01/16/21 13:27 01/16/21 13:27 01/16/21 13:27 01/16/21 13:27 Preop Diagnosis: Critical limb ischemia Proposed Procedure: Operation Date: 01/16/21 13:45 Proposed Procedures p EGD(Not Applicable) - Moi Weems MD Was Beta Elana taken within 24 hours: N/A Was Clonidine taken within 24 hours: N/A Social: Social History: No alcohol and No tobacco Exam: Pre-Anes Outpt Exam: alert, oriented x 3, clear to auscultation bilaterally and regular rate & rhythm Airway: Submandibular: WNL Cervical ROM: WNL MP: 2 Dentition: False History/ROS: No significant history except as noted Pulmonary: Pulmonary: None reported CV/HEM: CV/HEM: Afib (ablation) Comments: PM/AICD 2 yrs ago : : Chronic renal Insufficiency Hepatic: Hepatic: None reported GI: GI: GERD and PUD Metabolic: Metabolic: None reported Musc/skel: Musc/skel: Lower Back Pain and OA/DJD Neuropsych: Neuropsych: CVA (aphasia) Anesthetic Plan: ASA status: 3 Anesthesia: Anesthesia Evaluation and MAC Risk of > 500 ml blood loss (7ml/kg in children): No Meds/Allergies Current Medications: Current Medications Generic Name Dose Route Start Last Admin Trade Name Freq PRN Reason Stop Dose Admin Allopurinol 100 mg 01/16/21 06:00 01/16/21 06:20 Allopurinol 100 Mg Tablet PO 100 mg QAM CHINO Administration Bumetanide 1 mg 01/16/21 09:00 01/16/21 08:30 Bumetanide 1 Mg Tablet PO Not Given DAILY CHINO Ferrous Sulfate 325 mg 01/15/21 23:42 01/16/21 08:48 Ferrous Sulfate Ec 325 Mg Tablet PO Not Given BID CHINO Ceftriaxone Sodium 1,000 mg/ 50 mls @ 100 mls/ hr 01/16/21 09:00 01/16/21 09:43 Sodium Chloride IV Infused DAILY CHINO Infusion Protocol Sodium Chloride 1,000 mls @ 30 ml s/hr 01/16/21 13:45 01/16/21 13:44 Sodium Chloride 0.9% IV 01/17/21 13:44 30 mls/hr .Q24H CHINO Administration Morphine Sulfate 2 mg 01/16/21 04:16 01/16/21 10:38 Morphine 4 Mg/Ml Sdv 1 Ml IVP 2 mg Q6H PRN Administration SEVERE PAIN Pantoprazole Sodiu m 40 mg 01/15/21 23:42 01/16/21 09:12 Pantoprazole 40 Mg Sdv IVP 40 mg BID CHINO Administration PFSH Anesthesia PFSH: Medical History Acute kidney injury superimposed on chronic kidney disease Acute on chronic systolic heart failure Acute renal failure Alcoholism in recovery Anemia Atrial fibrillation Breast cancer Cardiac resynchronization therapy defibrillator (GLOBAL EXPANSION SALES DIRECTOR-D) in place Cardiomyopathy Carotid stenosis, bilateral CHF (congestive heart failure) Chronic systolic heart failure CKD (chronic kidney disease) Claudication Confusion COPD (chronic obstructive pulmonary disease) CVA (cerebral vascular accident) DJD (degenerative joint disease), lumbar HTN (hypertension) ICD (implantable cardioverter-defibrillator) in place Mitral regurgitation Non-ischemic cardiomyopathy VALE on CPAP Peripheral vascular disease Pneumonia Presence of Watchman left atrial appendage closure device PUD (peptic ulcer disease) PVCs (premature ventricular contractions) Surgical History History of cardiac radiofrequency ablation History of resection of meningioma Previous back surgery S/P cataract extraction S/P lumpectomy of breast Family History Sister Cancer Social History Smoking and tobacco status: former smoker Alcohol intake: former Other details last alcohol use: recovering alcoholic Household members: spouse Marital status: Data Anesthesia CBC & Chem 7: 01/16/21 05:00 01/16/21 05:00 Other Labs: Laboratory Results - last 48 hr 01/15/21 01/15/21 01/15/21 13:45 13:45 13:45 WBC 17.1 H RBC 2.32 L Hgb 7.7 L Hct 25.1 L MCV 108.2 H MCH 33.2 MCHC 30.7 RDW 16.3 H Plt Count 280 MPV 10.6 H Neut % (Auto) 89.1 Lymph % (Auto) 2.3 [place] % (Auto) 7.0 Eos % (Auto) 0.1 Baso % (Auto) 0.2 Neut # (Auto) 15.26 H Lymph # (Auto) 0.4 L [place] # (Auto) 1.2 H Eos # (Auto) 0.0 Baso # (Auto) 0.0 Nucleated RBC % (auto) 0 Nucleated RBCs # 0.0 Sodium 138 Potassium 4.5 Chloride 102 Carbon Dioxide 20 L Anion Gap 20.5 H BUN 67 H Creatinine 2.3 H GFR Calculation Not Reportable Glucose 107 Calculated Osmolality 306 H Lactate Calcium 8.4 L Magnesium Total Bilirubin 0.8 AST 18 ALT 9 Alkaline Phosphatase 130 H Creatine Kinase 21 L Troponin T Baseline 39 H Troponin T 120 Minute Delta Troponin T Troponin T Hi Sens 6Hr Troponin T Hi Sens 6Hr Delta C-Reactive Protein 84.4 H NT-Pro-B Natriuret Pep 4402 H Total Protein 5.4 L Albumin 3.4 L Globulin 2.0 Vitamin B12 Folate Procalcitonin 1.49 H TSH 1.15 Urine Color Urine Appearance Urine pH Ur Specific [place] Urine Protein Urine Glucose (UA) Urine Ketones Urine Blood Urine Nitrate Urine Bilirubin Urine Urobilinogen Ur Leukocyte Esterase SARS-CoV-2 Ag (Rapid) Blood Type Rho(D) Type Antibody Screen Crossmatch 01/15/21 01/15/21 01/15/21 13:45 13:45 13:45 WBC RBC Hgb Hct MCV MCH MCHC RDW Plt Count MPV Neut % (Auto) Lymph % (Auto) [place] % (Auto) Eos % (Auto) Baso % (Auto) Neut # (Auto) Lymph # (Auto) [place] # (Auto) Eos # (Auto) Baso # (Auto) Nucleated RBC % (auto) Nucleated RBCs # Sodium Potassium Chloride Carbon Dioxide Anion Gap BUN Creatinine GFR Calculation Glucose Calculated Osmolality Lactate 2.5 H Calcium Magnesium 2.6 H Total Bilirubin AST ALT Alkaline Phosphatase Creatine Kinase Troponin T Baseline Troponin T 120 Minute Delta Troponin T Troponin T Hi Sens 6Hr Troponin T Hi Sens 6Hr Delta C-Reactive Protein NT-Pro-B Natriuret Pep Total Protein Albumin Globulin Vitamin B12 Folate 14.6 Procalcitonin TSH Urine Color Urine Appearance Urine pH Ur Specific [place] Urine Protein Urine Glucose (UA) Urine Ketones Urine Blood Urine Nitrate Urine Bilirubin Urine Urobilinogen Ur Leukocyte Esterase SARS-CoV-2 Ag (Rapid) Blood Type Rho(D) Type Antibody Screen Crossmatch 01/15/21 01/15/21 01/15/21 13:45 14:19 14:19 WBC RBC Hgb Hct MCV MCH MCHC RDW Plt Count MPV Neut % (Auto) Lymph % (Auto) [place] % (Auto) Eos % (Auto) Baso % (Auto) Neut # (Auto) Lymph # (Auto) [place] # (Auto) Eos # (Auto) Baso # (Auto) Nucleated RBC % (auto) Nucleated RBCs # Sodium Potassium Chloride Carbon Dioxide Anion Gap BUN Creatinine GFR Calculation Glucose Calculated Osmolality Lactate Calcium Magnesium Total Bilirubin AST ALT Alkaline Phosphatase Creatine Kinase Troponin T Baseline Troponin T 120 Minute Delta Troponin T Troponin T Hi Sens 6Hr Troponin T Hi Sens 6Hr Delta C-Reactive Protein NT-Pro-B Natriuret Pep Total Protein Albumin Globulin Vitamin B12 854 Folate Procalcitonin TSH Urine Color Yellow Urine Appearance Clear Urine pH 5 Ur Specific [place] 1.010 Urine Protein Neg Urine Glucose (UA) Norm Urine Ketones Negative Urine Blood Neg Urine Nitrate Negative Urine Bilirubin Neg Urine Urobilinogen Neg Ur Leukocyte Esterase Negative SARS-CoV-2 Ag (Rapid) Negative Blood Type Rho(D) Type Antibody Screen Crossmatch 01/15/21 01/15/21 01/15/21 16:42 19:22 19:22 WBC RBC Hgb Hct MCV MCH MCHC RDW Plt Count MPV Neut % (Auto) Lymph % (Auto) [place] % (Auto) Eos % (Auto) Baso % (Auto) Neut # (Auto) Lymph # (Auto) [place] # (Auto) Eos # (Auto) Baso # (Auto) Nucleated RBC % (auto) Nucleated RBCs # Sodium Potassium Chloride Carbon Dioxide Anion Gap BUN Creatinine GFR Calculation Glucose Calculated Osmolality Lactate Calcium Magnesium Total Bilirubin AST ALT Alkaline Phosphatase Creatine Kinase Troponin T Baseline Troponin T 120 Minute 34.35 H Delta Troponin T -4.65 L Troponin T Hi Sens 6Hr 35.35 H Troponin T Hi Sens 6Hr Delta -3.65 L C-Reactive Protein NT-Pro-B Natriuret Pep Total Protein Albumin Globulin Vitamin B12 Folate Procalcitonin TSH Urine Color Urine Appearance Urine pH Ur Specific [place] Urine Protein Urine Glucose (UA) Urine Ketones Urine Blood Urine Nitrate Urine Bilirubin Urine Urobilinogen Ur Leukocyte Esterase SARS-CoV-2 Ag (Rapid) Blood Type A Positive Rho(D) Type Positive Antibody Screen Negative Crossmatch See Detail 01/16/21 01/16/21 05:00 05:00 WBC 10.0 RBC 2.63 L Hgb 8.5 L Hct 28.5 L MCV 108.4 H MCH 32.3 MCHC 29.8 L RDW 17.6 H Plt Count 225 MPV 10.7 H Neut % (Auto) 86.3 Lymph % (Auto) 4.4 [place] % (Auto) 7.9 Eos % (Auto) 0.6 Baso % (Auto) 0.3 Neut # (Auto) 8.60 H Lymph # (Auto) 0.4 L [place] # (Auto) 0.8 Eos # (Auto) 0.1 Baso # (Auto) 0.0 Nucleated RBC % (auto) 0 Nucleated RBCs # 0.0 Sodium 140 Potassium 4.3 Chloride 107 Carbon Dioxide 21 L Anion Gap 16.3 BUN 63 H Creatinine 1.9 H GFR Calculation Not Reportable Glucose 101 Calculated Osmolality 308 H Lactate Calcium 8.5 Magnesium 2.8 H Total Bilirubin AST ALT Alkaline Phosphatase Creatine Kinase Troponin T Baseline Troponin T 120 Minute Delta Troponin T Troponin T Hi Sens 6Hr Troponin T Hi Sens 6Hr Delta C-Reactive Protein NT-Pro-B Natriuret Pep Total Protein Albumin Globulin Vitamin B12 Folate Procalcitonin TSH Urine Color Urine Appearance Urine pH Ur Specific [place] Urine Protein Urine Glucose (UA) Urine Ketones Urine Blood Urine Nitrate Urine Bilirubin Urine Urobilinogen Ur Leukocyte Esterase SARS-CoV-2 Ag (Rapid) Blood Type Rho(D) Type Antibody Screen Crossmatch Micro: Microbiology 01/15/21 13:45 Blood Culture - Preliminary Blood SPECIMEN COLLECTED 01/15/21 13:15 Blood Culture - Preliminary Blood SPECIMEN COLLECTED Cardiac Studies: Echocardiogram 01/07/21
--- NOTE | 2021-01-16 14:06 | PM.PN ---
Subjective Subjective: Interval history: Patient was seen and examined this morning, no recurrence of bleed, she was laying supine without any active discomfort awaiting EGD today We discussed report of her CT scan of chest abdomen pelvis, today's hemoglobin Vitals/I&O/Wt Last Vital Signs Temp 98.2 F 01/16/21 13:27 Pulse 72 01/16/21 13:27 Resp 18 01/16/21 13:27 BP 130/46 01/16/21 13:27 Pulse Ox 96 01/16/21 13:27 01/15/21 01/16/21 01/16/21 22:59 06:59 14:59 Intake Total 1050 / 1050 550 / 1600 50 / 50 Output Total 100 / 100 Balance 1050 / 1050 450 / 1500 50 / 50 Weight last 48 hrs Weight 100.301 kg Weight 100.335 kg Weight 88.451 kg Physical Exam Narrative: EXAM NARRATIVE: Patient was laying comfortably in supine position Saturating well on room air S1, S2 No audible stridor or wheezing Abdomen soft, with obesity Lower extremity no edema No signs of ischemia or ulcer of lower extremity Data : 01/16/21 05:00 01/16/21 05:00 Micro: Microbiology 01/15/21 13:45 Blood Culture - Preliminary Blood SPECIMEN COLLECTED 01/15/21 13:15 Blood Culture - Preliminary Blood SPECIMEN COLLECTED A&P Assessment and plan (1) Hypotension: Status: Acute Qualifiers: Hypotension type: unspecified hypotension type Qualified Code(s): I95.9 - Hypotension, unspecified (2) Acute on chronic anemia: Status: Acute (3) Pericardial effusion: Status: Acute (4) Lower GI bleed: Status: Acute (5) History of gastric ulcer: Status: Acute (6) Occult blood positive stool: Status: Acute (7) Orthostatic dizziness: Status: Acute Additional A&P Information Hypotension secondary to blood loss anemia After 1 unit PRBC blood pressure has been stable No recurrence of symptoms Awaiting EGD today Noticed moderate pericardial effusion will request echo however no typical signs of cardiac tamponade Acute on chronic kidney disease: Creatinine back to baseline 1.9 today she was continued on Bumex 1 mg daily instead of 2 mg twice a day No active signs of pneumonia discontinue antibiotics Full code DVT prophylaxis contraindicated Attestations Medical Necessity Statement*: Anticipating discharge tomorrow Time Spent in Patient Care: less than 15 minutes Coding Level of Care Code Acute Medical Physics Professor for g Fwd Diagnoses Hypotension I95.9 Hypotension type: unspecified hypotension type Acute on chronic anemia D64.9 Pericardial effusion I31.3 Lower GI bleed K92.2 History of gastric ulcer Z87.11 Occult blood positive stool R19.5 Orthostatic dizziness R42
--- NOTE | 2021-01-16 14:07 | USCV_ITS ---
Teena Timmons Age: 75 Gender: F : 1945 Exam Date: 01/16/2021 15:41 Ordering Phys: Estrella Veras MD Technologist: Billie Evans [place]am Location[place] [facility] [place]ication: PERICARDIAL EFFUSION BP: 126 / 54 HR: 74 Rhythm: Sinus Technical Quality: Good MEASUREMENTS (Male / Female) Normal Values 2D ECHO LV Diastolic Diameter PLAX 4.7 cm 4.2 - 5.9 / 3.9 - 5.3 cm LV Systolic Diameter PLAX 4.3 cm LV Chamber Size 3.9 cm IVS Diastolic Thickness 1.3 cm 0.6 - 1.0 / 0.6 - 0.9 cm IVS Systolic Thickness 1.5 cm LVPW Diastolic Thickness 1.7 cm 0.6 - 1.0 / 0.6 - 0.9 cm LVPW Systolic Thickness 1.7 cm RV Chamber Size 3.2 cm LVOT Diameter 2.1 cm LV Ejection Fraction 2D Teich 18.4 % LV Ejection Fraction MOD 2C 54.8 % LV Ejection Fraction 2C AL 57.2 % LA Diameter 5.7 cm LA Width 4.8 cm LA Height 5.3 cm RA Width 5.3 cm RA Height 6.7 cm Aorta at Sinotubular Diameter 3.1 cm M-MODE LV Diastolic Diameter MM 5.3 cm 4.2 - 5.9 / 3.9 - 5.3 cm LV Systolic Diameter MM 4.5 cm LV Ejection Fraction MM Teich 31.6 % IVS Diastolic Thickness MM 1.3 cm 0.6 - 1.0 / 0.6 - 0.9 cm IVS Systolic Thickness MM 1.4 cm LVPW Diastolic Thickness MM 1.3 cm 0.6 - 1.0 / 0.6 - 0.9 cm LVPW Systolic Thickness MM 1.5 cm RV Diastolic Diameter MM 1.7 cm Aortic Annulus Diameter 3.0 cm LA Ao Ratio MM 2.2 MV E Point Septal Separation 0.6 cm DOPPLER PV Peak Velocity 65.0 cm/s RV Acceleration Time 0.1 s RV Ejection Time 0.4 s RV AcT/ET 0.3 FINDINGS Left Ventricle Normal left ventricular cavity size. Mildly reduced left ventricular systolic function. Global hypokinesis with septal . Left bounce.Left ventricular ejection fraction is estimated at 50 %. Right Ventricle Normal right ventricular size. Catheter/pacemaker wire visualized in the right ventricle. RVSP could not be calculated due to incomplete tricuspid regurgitation velocity profile. Right Atrium Moderately increased right atrial size. Catheter/pacemaker wire in the right atrial cavity. Left Atrium Moderately increased left atrial size. Mitral Valve Moderately thickened mitral valve. No mitral valve stenosis. Trace mitral valve regurgitation. Aortic Valve Moderate aortic valve calcification. No aortic valve stenosis. Mild aortic valve regurgitation. Tricuspid Valve Thickened tricuspid valve. [id number] tricuspid valve regurgitation. Pulmonic Valve Mild pulmonary valve regurgitation. Pericardium Normal pericardium without effusion. Aorta Normal ascending aorta dimension. CONCLUSIONS 1-Normal left ventricular cavity size. Mildly reduced left ventricular systolic function. Global hypokinesis with septal . Left bounce.Left ventricular ejection fraction is estimated at 50 %. 2-Normal right ventricular size. Catheter/pacemaker wire visualized in the right ventricle. 3-Moderately increased right atrial size. Catheter/pacemaker wire in the right atrial cavity. 4-Moderately increased left atrial size. 5-Moderately thickened mitral valve. No mitral valve stenosis. Trace mitral valve regurgitation. 6-Moderate aortic valve calcification. No aortic valve stenosis. Mild aortic valve regurgitation. 7-Normal right ventricular size. Catheter/pacemaker wire visualized in the right ventricle. RVSP could not be calculated due to incomplete tricuspid regurgitation velocity profile. 8-Right atrial pressure is around 5 mm of mercury. 9-No significant change since the prior echocardiogram study of 01/07/2021. Estrella Saucedo MD (Electronically Signed) Final Date: 16 January 2021 17:31 S
--- NOTE | 2021-01-16 16:17 | ANE.PACU2 ---
Inpatient post-anesthesia follow up: Airway intact: Yes Vital signs: Temperature 98.7 F Pulse Rate [Right Radial] 71 Pulse Rate [Orthos tatic 72 Standing] Pulse Rate [Orthos tatic 73 Sitting] Pulse Rate [Orthos tatic Lying] 70 Pulse Rate 77 Respiratory Rate 18 Blood Pressure [Or thostatic 106/38 Standing Left Arm] Blood Pressure [Or thostatic 114/51 Sitting Left Arm] Blood Pressure [Or thostatic 106/42 Lying Left Arm] Blood Pressure [Ri ght Arm] 123/96 Blood Pressure 122/67 Pulse Oximetry 92 Oxygen Delivery Me thod Room Air Oxygen Flow Rate 2 Fraction of Inspir ed Oxygen Hydration adequate: Yes Nausea and vomiting: No Pain level: 1 Mental status: Baseline
[2021-01-16] MEDS: ferrous sulfate EC 325 mg Tablet PO (17:55)
--- NOTE | 2021-01-16 19:21 | PC.NURSE ---
Patient arrived back to the floor at 1505 from EGD. Patient is A/Ox4, heart RRR, lungs CTAB, and bowel sounds normal at this time. Pedal pulses 2+ bilaterally. Patient reports pain to left lower leg and is requesting pain medication when it is due. Patient was assisted to the bed from wheelchair with one assist and no difficulties noted. She is requesting to eat, but no other needs voiced at this time.
[2021-01-17 03:12] LABS: Basophils % 0.2 %; Eosinophils # 0.4 10^3/uL (0.0-0.8); Eosinophils % 4.5 %; Hematocrit 25.6 % (37.0-47.0); Hemoglobin 7.9 g/dL (11.5-15.3); Lymphocytes # 0.5 10^3/uL (0.8-4.8); Lymphocytes % 6.4 %; Mean Corpuscular HGB Conc 30.9 g/dL (30.0-36.0); Mean Corpuscular Hemoglobin 33.1 pg (28.0-34.0); Mean Corpuscular Volume 107.1 fl (81-99); Monocytes # 0.9 10^3/uL (0.2-0.9); Monocytes % 10.5 %; Neutrophils # 6.58 10^3/uL (1.8-7.7); Neutrophils % 77.8 %; Nucleated Red Blood Cells % 0 %; Platelet Count 224 10^3/cmm (130-400); Red Blood Count 2.39 10^6/uL (4.1-5.3); Red Cell Distribution Width 17.3 % (12.1-15.1); White Blood Count 8.5 10^3/uL (4.0-10.0)
[2021-01-17 03:36] LABS: Anion Gap 15.6 (5-19); Blood Urea Nitrogen 59 mg/dL (8-23); Calcium 8.3 mg/dL (8.5-10.5); Carbon Dioxide 21 mmol/L (22-29); Chloride 106 mmol/L (98-107); Glucose 99 mg/dL (65-115); Osmolality Calculated 303 mOsm/kg (285-295); Potassium 4.6 mmol/L (3.5-5.1); Sodium 138 mmol/L (136-145)
[2021-01-17 03:56] VITALS: BP 111/65; PULSE 71; RESP 20; TEMP 37.4; O2SAT 92
[2021-01-17] MEDS: allopurinol 100 mg Tablet PO (05:15)
--- NOTE | 2021-01-17 06:01 | PC.NURSE ---
Patient AAOx4, resting in bed. Requests IV pain medication when due. Patient OOBT bedside commode with assist of one. No new events during shift. No needs at this time. Room clutter free with call light in reach. Will report and handoff patient to oncoming nurse at shift change.
[2021-01-17 08:00] VITALS: BP 115/56; PULSE 69; RESP 18; TEMP 36.5; O2SAT 94
[2021-01-17 08:04] VITALS: PULSE 72; RESP 18; O2SAT 94
[2021-01-17] MEDS: bumetanide 1 mg Tablet 2 MG PO (09:30)
[2021-01-17] MEDS: pantoprazole 40 mg SDV IVP (09:30)
[2021-01-17] MEDS: ferrous sulfate EC 325 mg Tablet PO (09:30)
[2021-01-17 09:36] LABS: Hematocrit 28.7 % (37.0-47.0); Hemoglobin 8.7 g/dL (11.5-15.3)
[2021-01-17 11:17] VITALS: BP 123/71; PULSE 68; RESP 16; TEMP 37.2; O2SAT 94
--- NOTE | 2021-01-17 11:32 | P.DS_ITS ---
Discharge Providers Date of Admission: 01/15/21 16:22 Date of Discharge: January 17, 2021 Attending Provider at Admission: Estrella Veras MD Attending Provider at Discharge: Estrella Veras MD Primary Care Provider: Janie Agustin MD Diagnoses at Discharge Discharge Diagnosis (1) Hypotension: Status: Acute Qualifiers: Hypotension type: unspecified hypotension type Qualified Code(s): I95.9 - Hypotension, unspecified (2) Acute on chronic anemia: Status: Acute (3) Pericardial effusion: Status: Acute (4) Lower GI bleed: Status: Acute (5) History of gastric ulcer: Status: Acute (6) Occult blood positive stool: Status: Acute (7) Orthostatic dizziness: Status: Acute Reason for Visit Reason for Visit: fall, hypotension Hospital Course Hospital Course HPI done by myself Teena Timmons is a 75 year old female who presented today with chief complaint of leg weakness. Patient is stating that she sustained a fall today when she suddenly felt weak when her knee buckled around noon. She sustained a fall and fell on her left leg. She twisted her ankle. Did not lose consciousness, no recent fever, chest pain, shortness of breath. She is vaccinated with messenger RNA vaccine for COVID-19. No history of AICD discharge. Diagnostic work-up in the ER revealed hemoglobin 7.7, her baseline hemoglobin ranges between 10-11. Patient does take iron supplementation. 2 years ago she had colonoscopy when she developed lower GI bleed at that time she was on Pradaxa for her A. fib and DVT. Pradaxa was discontinued. She has history of peripheral arterial disease status post stents placed by Dr. Mendez in left leg. For her chronic kidney disease she is following up with Dr. Carolina. There is a plan for right leg angioplasty in January. Stool guaiac test positive in the ER, when she arrived her systolic blood pressure was soft, she was given 1 L normal saline, she was orthostatic positive, she was given cefepime for concern of pneumonia, requested CT chest and abdomen without contrast, positive guaiac test, Dr. Weems consulted Patient has been taking aspirin and Plavix, she is stating that she knows when her stool gets dark red and tarry but this time she has not noticed any significant changes. She was saturating well on room air I discontinued her nasal cannula oxygen supplementation Hospital course Patient received 1 unit PRBC her hemoglobin stayed stable on the day of discharge it is 8.7. Creatinine improved after the blood resuscitation as well on day of discharge it is 1.8, it was around 2.3 at admission. She received broad-spectrum antibiotics in the ER however they were discontinued, and she never spiked fever, leukocytosis improved, Dr. Weems did EGD which revealed chronic gastric ulcers & gastritis without active bleeding. She was recommended to use Plavix along her statins for her stents in the left leg. She can resume Entresto and follow-up with cardiology. Her cultures were negative to date Echo was repeated because of pericardial effusion seen on CT chest, which did not show any acute worsening as per the report, her blood pressure stayed stable no active chest pain, shortness of breath Physical therapy recommended home health services, she was complaining of left knee pain, no gout or fractures noted. Physical Exam Narrative: EXAM NARRATIVE: Patient was laying comfortably in supine position Saturating well on room air S1, S2 No audible stridor or wheezing Abdomen soft, with obesity Lower extremity no edema No signs of ischemia or ulcer of lower extremity Discharge Data Data Completed and Pending: Completed Studies During Hospitalization Category Date Time Status CT chest abd pel wo con Urgent Cat Scan 01/15/21 17:26 Completed XR chest 1V socrates ble [id number] Urgent Exams 01/15/21 13:42 Completed XR knee LT 3V* 73 562 Stat Exams 01/15/21 16:05 Completed CV. echo lmt w co piero [id number] Routi ne Ultrasound 01/16/21 14:07 Completed Pending at discharge Category Date Time Status Blood Culture Sta t Lab 01/15/21 13:45 Results Pathology: Surgic al [PTH] Routine Pth 01/16/21 14:10 Received Labs from last 24 hours 01/17/21 01/17/21 01/17/21 09:25 02:30 02:30 WBC 8.5 RBC 2.39 L Hgb 8.7 L 7.9 L Hct 28.7 L 25.6 L MCV 107.1 H MCH 33.1 MCHC 30.9 RDW 17.3 H Plt Count 224 MPV 11.0 H Neut % (Auto) 77.8 Lymph % (Auto) 6.4 [place] % (Auto) 10.5 Eos % (Auto) 4.5 Baso % (Auto) 0.2 Neut # (Auto) 6.58 Lymph # (Auto) 0.5 L [place] # (Auto) 0.9 Eos # (Auto) 0.4 Baso # (Auto) 0.0 Nucleated RBC % (a uto) 0 Nucleated RBCs # 0.0 Sodium 138 Potassium 4.6 Chloride 106 Carbon Dioxide 21 L Anion Gap 15.6 BUN 59 H Creatinine 1.8 H GFR Calculation Not Reportable Glucose 99 Calculated Osmolal ity 303 H Calcium 8.3 L Vitals: Last Vital Signs Temp 98.9 F 01/17/21 11:17 Pulse 68 01/17/21 11:17 Resp 16 01/17/21 11:17 BP 123/71 01/17/21 11:17 Pulse Ox 94 01/17/21 11:17 Discharge Plan Discharge Patient Disposition: Home Health Service Condition: Stable Prescriptions: New Carafate 100 mg/mL suspension 1 g PO .AC HS 28 Days Qty: 1000 RF: 2 Continued allopurinol 100 mg tablet 100 mg PO QAM RF: 0 ferrous sulfate 325 mg (65 mg iron) tablet 325 mg PO BID RF: 0 vitamin B complex [B Complex-Vitamin B12] Tablet 1 tab PO QPM RF: 0 magnesium 250 mg tablet 250 mg PO QPM RF: 0 acetaminophen 500 mg capsule 500 - 1,000 mg PO Q6H PRN (Reason: Pain) RF: 0 Entresto 24-26 mg tablet 1 tab PO BID Qty: 0 RF: 0 gabapentin 300 mg capsule 300 mg PO BID RF: 0 clopidogrel 75 mg tablet 75 mg PO QPM RF: 0 bumetanide 2 mg tablet 2 mg PO BID RF: 0 Changed pantoprazole 40 mg tablet,delayed release (DR/EC) 40 mg PO BID 30 Days Qty: 60 RF: 2 Discontinued aspirin [Aspirin Low Dose] 81 mg tablet,delayed release (DR/EC) 81 mg PO QAM RF: 0 Discharge Orders: Discharge Order (Routine); Ordered 01/17/21 Ordered By: Estrella Veras Discharge Diet: Cardiac Discharge Activity: Increase activity as tolerated, Use walker/crutches as instructed and As per PT/OT instructions Patient Instructions: Gastritis (DC), Diet for Ulcers and Gastritis (GEN), GI Discharge Instructions, Opioid Safety Activity Restrictions/Additional Instructions: Hemoglobin improved to 8.7 after getting 1 unit PRBC Your echocardiogram did not show worsening from previous studies however it does show moderate pericardial effusion you can start taking your Bumex 2 mg twice a day We did found gastritis with gastric ulcer avoid aspirin and you can use Plavix for now, I am also adding Protonix 40 mg twice a day along sucralfate If you keep noticing black tarry stools please stop taking Plavix as well and follow-up with cardiology PT recommended home health services you can use walker or cane at home X-ray was done which did not show any fractures no active signs of gout as well of left knee Do not use ibuprofen as your kidney function is not normal, creatinine on discharge 1.8 when you came in your creatinine was 2.3 CT scan of chest abdomen pelvis was unremarkable, we did not find active source of pneumonia however YOU received antibiotics in the ER Discharge Attestations Time Spent in Discharge Care*: less than 30 min Status at Discharge: Cognitive status at discharge: cognitively intact , Behavioral status at discharge: cooperative , Quality Metrics Clinical Quality Measures During this hospital stay, did patient experience: None Coding Level of Care Code Acute [facility] note Diagnoses Hypotension I95.9 Hypotension type: unspecified hypotension type Acute on chronic anemia D64.9 Pericardial effusion I31.3 Lower GI bleed K92.2 History of gastric ulcer Z87.11 Occult blood positive stool R19.5 Orthostatic dizziness R42
--- NOTE | 2021-01-17 15:32 | PC.CHAP ---
Pastoral Care Encounter/Spiritual Assessment Type of Contact [] Declined signalling and communications engineer visit [] Patient/Family/Request visit [] Outpatient visit [xx] Follow-up visit [] Physician referral [] Code/Alert [] Routine visit [] Staff referral [] Actively dying [] Patient sleeping [] Family support [] [] Out of room [] Palliative care [] [xx] Receiving care in room [] Pre-surgical visit [] Trauma [] Long length of stay [] ICU visit [] Other: Relational/Emotional Strength [] Patient feels connected with others/family/visitors/staff [] Distress [] Loneliness/isolation [] Abandonment Spirituality of Patient [] Person of Bernie [] Attends Scientologist of their Bernie [] Believes in Prayer [] Reads Bible or Mosque materials [] There are Spiritual issues to be addressed Director Digital Interventions [] Prayer [] Active listening [] Non-anxious presence [] Spiritual/emotional support [] Crisis/trauma care [] Spiritual counseling [] Bereavement support [] Provided bereavement packet [] Provided Bible/devotional materials [] Provided toy/stuffed animal, coloring book to patient or family member [] Provided Communion [] Anointing/Rydal [] Salvation [] Completed spiritual assessment [] Other: Impact on Illness or Injury [] Angry [] Fearful [] Anxious [] Often cries [] Exhaustion [] Unable to work [] Unable to attend rastafari [] Unable to walk/stand [] Unable to read [] Unable to drive [] Unable to eat/drink [] Unable to sleep [] Unable to be with family [] Patient intubated [] Other: Summary Follow up later Time spent with patient
--- NOTE | 2021-01-17 18:31 | PC.RESP ---
Pulmonary Rehab information sent to patient.
== END 2021-01-17 15:20 | disposition home health service (06) | DRG 315 ==
LOC: ER 19:06 → MEDSURG 20:40
PROVIDERS: Family Medicine; Admitting Provider Internal Medicine; Emergency Provider Family Medicine; PCP Internal Medicine; Visit Provider Internal Medicine
PROC: 0DJ08ZZ Inspection of Upper Intestinal Tract, Via Natural or Artificial Opening Endoscopic (ICD-10-PCS; CPT 43235; principal; 2021-01-16 13:45)
DX: I95.9 Hypotension, unspecified (principal); I48.19 Other persistent atrial fibrillation; I13.0 Hypertensive heart and chronic kidney disease with heart failure and stage 1 through stage 4 chronic kidney disease, or unspecified chronic kidney disease; I50.42 Chronic combined systolic (congestive) and diastolic (congestive) heart failure; I42.8 Other cardiomyopathies; I31.3 Pericardial effusion (noninflammatory); W19.XXXA Unspecified fall, initial encounter; Z95.810 Presence of automatic (implantable) cardiac defibrillator; Z86.718 Personal history of other venous thrombosis and embolism; I73.9 Peripheral vascular disease, unspecified; Z95.820 Peripheral vascular angioplasty status with implants and grafts; N18.9 Chronic kidney disease, unspecified; F10.21 Alcohol dependence, in remission; D63.1 Anemia in chronic kidney disease; Z85.3 Personal history of malignant neoplasm of breast; J44.9 Chronic obstructive pulmonary disease, unspecified; Z86.73 Personal history of transient ischemic attack (TIA), and cerebral infarction without residual deficits; I34.0 Nonrheumatic mitral (valve) insufficiency; G47.33 Obstructive sleep apnea (adult) (pediatric); Z87.01 Personal history of pneumonia (recurrent); B96.81 Helicobacter pylori [H. pylori] as the cause of diseases classified elsewhere; Z79.02 Long term (current) use of antithrombotics/antiplatelets; K29.70 Gastritis, unspecified, without bleeding; K25.7 Chronic gastric ulcer without hemorrhage or perforation; R19.5 Other fecal abnormalities; X50.1XXA Overexertion from prolonged static or awkward postures, initial encounter; Z87.891 Personal history of nicotine dependence; Z87.11 Personal history of peptic ulcer disease
CPT/HCPCS: 12345; 36415; 36430; 43239; 71045; 71250; 73562; 74176; 80048; 80053; 81003; 82550; 82607; 82746; 83605; 83735; 83880; 84145; 84443; 84484; 85014; 85018; 85025; 86140; 86850; 86900; 86920; 87040; 87426; 88305; 93005; 93306; 93308; 93325; 96360; 96365; 96375; 97116; 97161; 97530; 99284; 99285; C9113; J0692; J0696; J2270; J2704; J3010; J7030; P9016

== ENCOUNTER → 2021-01-24 07:05 | Day surgery (SDC) | payer MEDICARE, OTHER, SELFPAY ==
[2021-01-24 07:35] VITALS: BP 121/63; PULSE 69; RESP 18; TEMP 36; O2SAT 97; BMI 31.8
[2021-01-24 09:24] VITALS: BP 121/63; PULSE 70; RESP 18; TEMP 37.1; O2SAT 98
[2021-01-24 09:40] VITALS: BP 120/47; PULSE 70; RESP 18; TEMP 36.3; O2SAT 97
[2021-01-24 09:55] VITALS: BP 108/60; PULSE 71; RESP 18; TEMP 36.3; O2SAT 95
[2021-01-24] MEDS: diphenhydrAMINE 25 mg Capsule PO (10:11)
[2021-01-24 10:50] VITALS: BP 111/48; PULSE 72; RESP 18; TEMP 36.4; O2SAT 98
[2021-01-24] MEDS: sodium chloride 0.9% (100 ml) 100 ML 10 ML (10:50)
== END ==
PROVIDERS: PCP Internal Medicine; Visit Provider Internal Medicine
DX: D64.9 Anemia, unspecified (principal); I50.22 Chronic systolic (congestive) heart failure; I73.9 Peripheral vascular disease, unspecified; I13.0 Hypertensive heart and chronic kidney disease with heart failure and stage 1 through stage 4 chronic kidney disease, or unspecified chronic kidney disease; N18.9 Chronic kidney disease, unspecified; I48.21 Permanent atrial fibrillation
CPT/HCPCS: 36415; 36430; 80048; 85025; 85610; 86850; 86900; 86902; 86920; 87635; P9016

== ENCOUNTER → 2021-01-29 14:32 | Outpatient (BNVA) | payer MEDICARE, OTHER, SELFPAY | PROVIDERS: PCP Internal Medicine; Visit Provider Nurse Practitioner Family | DX: Z20.822 Contact with and (suspected) exposure to COVID-19 (principal); J06.9 Acute upper respiratory infection, unspecified | CPT/HCPCS: 87635 ==

== ENCOUNTER 2021-02-10 14:47 | Outpatient (CLI) | payer MEDICARE, OTHER, SELFPAY ==
[2021-02-10 15:49] LABS: Anion Gap 17.9 (5-19); Blood Urea Nitrogen 54 mg/dL (8-23); Calcium 9.1 mg/dL (8.5-10.5); Carbon Dioxide 24 mmol/L (22-29); Chloride 97 mmol/L (98-107); Glucose 98 mg/dL (65-115); Osmolality Calculated 295 mOsm/kg (285-295); Potassium 3.9 mmol/L (3.5-5.1); Sodium 135 mmol/L (136-145)
== END 2021-02-10 14:48 | disposition home or self-care (01) ==
PROVIDERS: PCP Internal Medicine; Visit Provider Registered Nurse
DX: N18.4 Chronic kidney disease, stage 4 (severe) (principal)
CPT/HCPCS: 80048

== ENCOUNTER 2021-02-13 12:55 | Observation (INO) | payer MEDICARE, OTHER, SELFPAY ==
[2021-02-13] VITALS (18 sets, daily range): BP systolic 124–146; BP diastolic 58–82; PULSE 55–85; RESP 15–39; TEMP 36.7–36.9; O2SAT 93–98; BMI 31.4
[2021-02-13] MEDS: sodium chloride 0.9% 1,000 ML 200 ML IV (05:15)
--- NOTE | 2021-02-13 05:27 | XACV_ITS ---
Ht: 168 cm Wt: 90 kg BSA: 2.08 m2 Any Known Allergies: Other Gender: Female : 1945 Exam Type: Invasive Peripheral Vascular Procedure(s): Procedure Description: Peripheral Cath Diagnostic Procedure Exam Priority: Routine Lower Extremity Diagnostic Findings Left common femoral artery: Patent Left profunda femoral artery: Patent Left SFA: Patent Left popliteal artery: Distally occluded TP trunk: Occluded Anterior tibial arteries stent occluded Excellent collateral flow supplying anterior tibial artery after occluded stented segment. Reconstitution of occluded peroneal and posterior tibial arteries overall from collateral flow. Foot supplied by all 3 vessels through collateral blood flow.. Right external iliac artery: Patent Right common femoral artery: Patent Right profunda femoral artery: Patent Right SFA: Patent Right popliteal artery: Occluded Below the knee only collateral blood flow seen.. Conclusions Severe bilateral below the knee peripheral arterial disease. Left lower extremity has excellent collateral blood supply. Plan for medical therapy. Right lower extremity has occluded popliteal arteries and collateral blood supply that is not very robust. Will need staged procedure for better imaging and attempt at revasularization of the right lower extremity. Recommendations Aggressive medical therapy. Will stage procedure for the right lower extremity for potential revascularization. Outpatient follow up in office in 4 weeks. Hemodynamic Data Phase:Rest AO : / ( 0.0 ) @ 10:47:00 AM Access Site Site: Right Femoral artery Sheath Size: 6 Fr Hemost... Method: Mechanical Compression Hemost... Success: Successful Procedure Details Findings Identified patient by full name and date of as verbalized by the patient/guarantor. Does the consent match the physician's order: Yes. Accurate & Complete Informed Consent: Yes. Inpatient/Outpatient History & Physical on Chart: Yes. If H&P is completed, is and addenduem needed: N/A; If yes, is the addendum complete: N/A. Relevant Radiology Images available: Yes. Pre-op teaching completed and patient verbalized understanding. The risks, benefits, and alternatives of sedation and/or procedure were discussed by physician. The patient agrees to continue. Procedure started. PERRLA. Strong, equal hand printing press machinist bilaterally. Lungs clear x 5 lobes. IV Site on Arrival: 20 gauge in the right wrist. Pre Procedural Pulses: right dorsalis pedis was 3+. Pre Procedural Pulses: left dorsalis pedis was 1+. Pre Procedural Pulses: right posterior tibial was Doppled. Pre Procedural Pulses: left posterior tibial was Doppled. IV Fluids: 0.9% NaCl at KVO. 200 mL infused prior to laborer brush clearing. Oxygen started at 2liters/min via nasal canula. Physician notified. Baseline sample Acquired. HR: 70 BPM. Admit Source: Out Patient. Physician arrived. Physician scrubbed in. Time out performed with cath team. Lidocaine 1% infiltrated to the right groin. Arterial access obtained with micropuncture set. A 5FrFr UF catheter in over wire. Glidewire inserted. Glidewire removed. Hand injection through the sheath. 6Fr flexor sheath exchanged for 6Fr short sheath. Catheter out. Sheath injected in Right common femoral artery and runoff performed. Seeker catheter inserted over the wire. Hand injection through the seeker. Glidewire inserted. Glidewire removed. Hand injection through the seeker. Left leg runoff performed. Glidewire inserted. Seeker catheter removed. 6Fr Flexor exchanged for 6Fr short sheath. Right common femoral selected and arteriogram with runoff performed @ 10 mL/sec for a total of 30 mL. Sheath(s) removed and manual pressure held until hemostasis was achieved. Sterile 4x4 and Op-site applied to the puncture site. No oozing or hematoma noted. Post sheath removal instructions were given and the patient verbalized understanding. Post Procedure: Pulses reassessed and unchanged. PERRLA. Strong, equal hand printing press machinist bilaterally. No VTE prophylaxis required. Medication's Wasted: Lidocaine 1% = 12 mL. Medication's Wasted: Heparin = 1000 u. Total IV fluids: 171 mL. Estimated blood loss: 5mL-10mL. Procedure completed. Patient transferred by stretcher to CPRU. A Mechanical Compression was successful obtaining hemostatsis at the Right Femoral artery insertion site. Procedure Medications Start: 11:18 AM Stop: 11:18 AM Medication: Versed Amount: 1 mg Route: I.V. Start: 11:18 AM Stop: 11:18 AM Medication: Fentanyl Amount: 50 mcg Route: I.V. Start: 11:23 AM Stop: 11:23 AM Medication: Versed Amount: 1 mg Route: I.V. Start: 11:52 AM Stop: 11:52 AM Medication: Fentanyl Amount: 50 mcg Route: I.V. I, the attending physician, have reviewed and verified all procedure medications. Yes, all medications given per verbal order History/Risk Factors Hypertension: Yes Dyslipidemia: Yes Peripheral Arterial Disease (PAD): No Obesity: No Renal Disease: No Tobacco Use: Never Prior Interventions PCI: No CABG: No Valve Surgery: No Report Signatures Finalized by Raji Wong MD on 02/26/2021 10:14 AM
[2021-02-13] MEDS: acetaminophen 325 mg Tablet 650 MG PO ×2 (14:26→20:54)
[2021-02-13 15:15] LABS: Blood Urea Nitrogen 47 mg/dL (8-23); Carbon Dioxide 24 mmol/L (22-29); Chloride 101 mmol/L (98-107); Glucose 97 mg/dL (65-115); Osmolality Calculated 300 mOsm/kg (285-295); Sodium 139 mmol/L (136-145)
[2021-02-13 15:19] LABS: Anion Gap 17.7 (5-19); Potassium 3.7 mmol/L (3.5-5.1)
[2021-02-13] MEDS: pantoprazole DR 40 mg Tablet PO (17:52)
[2021-02-13] MEDS: gabapentin 300 mg Capsule PO (17:52)
[2021-02-13] MEDS: clopidogrel 75 mg Tablet PO (17:52)
[2021-02-13] MEDS: sodium chloride 0.9% 1,000 ML 50 ML IV (17:53)
[2021-02-14] MEDS: acetaminophen 325 mg Tablet 650 MG PO ×2 (03:01→08:42)
[2021-02-14 03:10] VITALS: BP 150/64; PULSE 70; RESP 23; TEMP 36.9; O2SAT 95
[2021-02-14 04:50] VITALS: PULSE 70
[2021-02-14 04:55] LABS: Basophils % 0.3 %; Eosinophils # 0.1 10^3/uL (0.0-0.8); Eosinophils % 0.6 %; Hematocrit 26.8 % (37.0-47.0); Lymphocytes # 0.5 10^3/uL (0.8-4.8); Lymphocytes % 4.6 %; Mean Corpuscular HGB Conc 29.9 g/dL (30.0-36.0); Mean Corpuscular Hemoglobin 29.7 pg (28.0-34.0); Mean Corpuscular Volume 99.6 fl (81-99); Mean Platelet Volume 10.2 fL (7.4-10.4); Monocytes # 0.9 10^3/uL (0.2-0.9); Monocytes % 8.8 %; Neutrophils % 85.1 %; Nucleated Red Blood Cells % 0 %; Platelet Count 339 10^3/cmm (130-400); Red Blood Count 2.69 10^6/uL (4.1-5.3); White Blood Count 10.6 10^3/uL (4.0-10.0)
[2021-02-14 05:09] LABS: Anion Gap 16.6 (5-19); Blood Urea Nitrogen 51 mg/dL (8-23); Carbon Dioxide 24 mmol/L (22-29); Chloride 105 mmol/L (98-107); Glucose 112 mg/dL (65-115); Osmolality Calculated 308 mOsm/kg (285-295); Potassium 3.6 mmol/L (3.5-5.1); Sodium 142 mmol/L (136-145)
[2021-02-14 08:00] VITALS: BP 150/68; PULSE 78; RESP 25; TEMP 36.7; O2SAT 98
--- NOTE | 2021-02-14 08:18 | PM.SDS ---
Short Stay Summary Providers Date of Admit/Discharge: 02/13/21 Attending Provider: Raji Wong M.D Primary Care Provider: Janie Agustin MD Chief Complaint: Severe lifestyle limiting claudication HPI History of Present Illness Teena Timmons is a 75 year old female with past medical history of congestive heart failure, peripheral artery disease and a recent acute limb in November when she underwent intervention. She has been having lifestyle limiting claudication and arterial duplex showed severe below the knee disease bilaterally. Her symptoms are more significant on the left side and plan for left-sided peripheral angiogram with possible intervention. Review of Systems Const: Reports: fatigue; Denies: fever(s), chills, change in weight or diaphoresis Eyes: Denies: change in vision or eye redness ENMT: Denies: throat pain, odynophagia, mouth pain or epistaxis Card: Reports: dyspnea on exertion; Denies: chest pain, palpitations, irregular heart rhythm, edema, syncope, pre-syncope, orthopnea or leg pain with exertion Resp: Denies: dyspnea, productive cough or wheezing GI: Denies: nausea, vomiting, hematemesis, hematochezia or melena : Denies: hematuria Musc: Reports: extremity pain (left leg); Denies: extremity swelling or joint pain Skin/Breast: Denies: rash, pruritus, erythema or new lesions Neuro: Reports: sensory changes (left leg pain and tightness); Denies: numbness in extremities, weakness in extremities, frequent falls, Slurred speech present or difficulty communicating thoughts Psych: Denies: anxiety, depression, irritability, suicidal ideation or homicidal ideation Endo: Denies: polyuria, polydipsia or excessive sweating Yovanny/Lymph: Reports: easy bruising and easy bleeding Home Meds/Allergies Home Medications and Allergies Home Medications Medication Instructions Recorded Confirmed Type ferrous sulfate 325 mg (65 mg 325 mg PO BID 06/28/19 02/20/21 History iron) tablet magnesium 250 mg tablet 250 mg PO QPM 06/28/19 02/20/21 History vitamin B complex 1 tab PO QPM 06/28/19 02/20/21 History allopurinol 100 mg tablet 100 mg PO QAM 07/06/19 02/20/21 History acetaminophen 500 mg capsule 500 - 1,000 mg PO Q6H PRN 01/12/20 02/20/21 History bumetanide 2 mg PO BID 12/05/20 02/20/21 History clopidogrel 75 mg PO QPM 01/15/21 02/20/21 History gabapentin 300 mg PO BID 01/15/21 02/20/21 History Allergies Allergy/AdvReac Type Severity Reaction Status Date / Time Iodinated Contrast Media Allergy Unknown Verified 02/20/21 09:47 latex Allergy hives Verified 02/20/21 09:47 Zsiamuj-Kyj-Eqh Reductase AdvReac Intermediate ADR-Muscle Verified 02/20/21 09:47 Inhibitor Pain TPA Allergy Severe ALGY-Anaphy Uncoded 02/20/21 09:47 laxis PFSH Acute PFSH: Medical History Acute kidney injury superimposed on chronic kidney disease Acute on chronic anemia Acute on chronic systolic heart failure Acute renal failure Alcoholism in recovery Anemia Atrial fibrillation Breast cancer Cardiac resynchronization therapy defibrillator (AOC PLANS INTELLIGENCE OFFICER CHIEF-D) in place Cardiomyopathy Carotid stenosis, bilateral CHF (congestive heart failure) Chronic systolic heart failure CKD (chronic kidney disease) Claudication Confusion COPD (chronic obstructive pulmonary disease) CVA (cerebral vascular accident) DJD (degenerative joint disease), lumbar History of gastric ulcer HTN (hypertension) Hypotension ICD (implantable cardioverter-defibrillator) in place Mitral regurgitation Non-ischemic cardiomyopathy Occult blood positive stool Orthostatic dizziness VALE on CPAP Peripheral vascular disease Pneumonia Presence of Watchman left atrial appendage closure device PUD (peptic ulcer disease) PVCs (premature ventricular contractions) Surgical History History of cardiac radiofrequency ablation History of resection of meningioma Previous back surgery S/P cataract extraction S/P lumpectomy of breast Family History Sister Cancer Social History Alcohol intake: former Other details last alcohol use: recovering alcoholic Household members: spouse Marital status: Vitals/I&O/Wt Last Vital Signs Temp 98.1 F 02/14/21 08:00 Pulse 78 02/14/21 08:00 Resp 25 H 02/14/21 08:00 BP 150/68 02/14/21 08:00 Pulse Ox 98 02/14/21 08:00 02/13/21 02/14/21 02/14/21 22:59 06:59 14:59 Intake Total 1450 / 1450 Output Total 620 / 770 Balance 830 / 680 Weight last 48 hrs Weight 195 lb Physical Exam Narrative: EXAM NARRATIVE: GENERAL: Patient is alert, awake and oriented x3. [] NECK: No jugular vein distension. [] HEENT: No cyanosis. No icterus. No pallor. [] HEART: Regular S1 and S2. No murmur, rub or gallop. [] LUNGS: Clear to auscultate bilaterally. [] ABDOMEN: Soft, nontender and nondistended. Positive bowel sounds. No guarding, rebound or tenderness. [] CENTRAL NERVOUS SYSTEM: Grossly nonfocal. [] EXTREMITIES: Lower extremities with 1+ edema bilaterally. Very weak palpable pulses bilaterally. Hospital Course Hospital Course Teena Timmons is a 75 year old female with past medical history of congestive heart failure, peripheral artery disease and a recent acute limb in November when she underwent intervention. She has been having lifestyle limiting claudication and arterial duplex showed severe below the knee disease bilaterally. Her symptoms are more significant on the left side and plan for left-sided peripheral angiogram with possible intervention. Patient was brought in early in the morning for prehydration prior to peripheral angiogram as she has CKD with recent contrast-induced nephropathy. She underwent peripheral angiogram that demonstrated occluded stents and left lower extremity below the knee that were recently placed. However she has developed robust collateral blood supply downstream. Plan for medical management of the left lower extremity. Imaging of the right side was limited however showed occlusion at popliteal artery level. Weak collateral supply is seen below the knee. Plan for repeat peripheral angiogram dedicated to right lower extremity with possible intervention as a staged procedure. 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 Routin e Exams 02/13/21 05:27 Taken Discharge Plan Discharge Patient Disposition: Home Condition: Stable Prescriptions: Continued allopurinol 100 mg tablet 100 mg PO QAM RF: 0 ferrous sulfate 325 mg (65 mg iron) tablet 325 mg PO BID RF: 0 vitamin B complex [B Complex-Vitamin B12] Tablet 1 tab PO QPM RF: 0 magnesium 250 mg tablet 250 mg PO QPM RF: 0 acetaminophen 500 mg capsule 500 - 1,000 mg PO Q6H PRN (Reason: Pain) RF: 0 gabapentin 300 mg capsule 300 mg PO BID RF: 0 clopidogrel 75 mg tablet 75 mg PO QPM RF: 0 pantoprazole 40 mg tablet,delayed release (DR/EC) 40 mg PO BID 30 Days Qty: 60 RF: 2 bumetanide 2 mg tablet 2 mg PO BID RF: 0 Discharge Orders: Discharge Order (Routine); Ordered 02/14/21 Ordered By: Raji Wong Other Ambulatory Orders: Basic Metabolic Panel (Routine) Timeframe: [id number] Facility: [facility] - Location: Lab - Main Lab Ordered By: Raji Wong Referrals: Raji Wong M.D [Physician] - 2 weeks (You have an appointment with Dr. Wong on March 04, at 3:15pm. If you have any questions or concerns please call the office. ) Discharge Diet: Cardiac Discharge Activity: Increase activity as tolerated Patient Instructions: Opioid Safety, Post Angiogram Home Care Instructions Attestations Medical Necessity Statement*: Care not expected to cross 2 midnights. Time Spent in Patient Care*: greater than 30 min Status at Discharge: Cognitive status at discharge: cognitively intact, Behavioral status at discharge: cooperative, Quality Metrics Clinical Quality Measures: During this hospital stay, did patient experience: None Coding Level of Care Code Acute Service Counselor for Maday Shi
[2021-02-14] MEDS: gabapentin 300 mg Capsule PO (08:28)
[2021-02-14] MEDS: pantoprazole DR 40 mg Tablet PO (08:28)
--- NOTE | 2021-02-14 08:29 | PC.PHAR ---
pt states she takes care of her own medications-pt states her entresto 24-26mg was dced on wednesday02/10/21 by pt states she hasnt taken since 02/09/21-pt states she stop taking aspirin 81mg pt states she hasnt had in a month ext med history shows last filled on 12/07/20 90d/s-pt states she finished her sucralfate 1gm over a week ago ext med history shows last filled on 01/21/21 30d/s-pts gabapentin was filled on 02/07/21 30d/s for 300mg tid pt states she only takes 300mg bid-pt states her metoprolol er 100mg was dced and states she hasnt taken for a while
[2021-02-14 10:02] VITALS: BP 150/68; PULSE 78; RESP 25; TEMP 36.7; O2SAT 98
--- NOTE | 2021-02-14 10:51 | PC.NURSE ---
Discharge Note Patient discharged to home via w/c accompanied by spouse. 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 Mobile pharmacy medications and/or prescriptions provided. Belongings/home medications returned.
--- NOTE | 2021-02-14 15:15 | PC.RESP ---
PULMONARY REHAB INFORMATION SENT TO PATIENT.
--- NOTE | 2021-02-18 09:52 | PC.SOCIAL ---
discharge follow up call made. spoke with patient. she reports she is feeling better, has some shortness of breath, but that is normal for her. patient has follow up appointment today with cardiology in [place]. patient is aware of follow up with dr. clement and has transportation to appointment. patient didn't get labs drawn yesterday, she wasn't aware this needed to be done. reports she isn't able to get labs drawn until but she will come then. Patient has PT coming into home from previous knee surgery and has a lady to come and clean for her. patient denies questions or concerns.
== END 2021-02-14 10:51 | disposition home or self-care (01) ==
LOC: CSU 12:55
PROVIDERS: Admitting Provider Internal Medicine; PCP Internal Medicine; Visit Provider Internal Medicine
DX: I70.202 Unspecified atherosclerosis of native arteries of extremities, left leg (principal); E78.5 Hyperlipidemia, unspecified; I13.0 Hypertensive heart and chronic kidney disease with heart failure and stage 1 through stage 4 chronic kidney disease, or unspecified chronic kidney disease; N18.9 Chronic kidney disease, unspecified; I50.22 Chronic systolic (congestive) heart failure; I48.91 Unspecified atrial fibrillation; Z85.3 Personal history of malignant neoplasm of breast; J44.9 Chronic obstructive pulmonary disease, unspecified; Z86.73 Personal history of transient ischemic attack (TIA), and cerebral infarction without residual deficits; M47.816 Spondylosis without myelopathy or radiculopathy, lumbar region; G47.33 Obstructive sleep apnea (adult) (pediatric); Z87.11 Personal history of peptic ulcer disease
CPT/HCPCS: 36415; 75716; 80048; 85025; C1769; C1887; C1894; G0378; J1644; J2250; J3010; J7030; Q9967

== ENCOUNTER → 2021-02-20 10:50 | Outpatient (BNVA) | payer MEDICARE, OTHER, SELFPAY | PROVIDERS: PCP Internal Medicine; Visit Provider Nurse Practitioner Family | DX: I73.9 Peripheral vascular disease, unspecified (principal) | CPT/HCPCS: 80048 ==

== ENCOUNTER 2021-03-28 15:02 | Observation (INO) | payer MEDICARE, OTHER, SELFPAY ==
[2021-03-28] VITALS (9 sets, daily range): BP systolic 130–156; BP diastolic 71–85; PULSE 70–84; RESP 12–22; TEMP 36.4–36.7; O2SAT 95–100; BMI 31.4
--- NOTE | 2021-03-28 15:32 | ECG_ITS ---
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1945 Requested By: Renetta Bettencourt Order Number: [id number] Reading MD: JACKELINE CARRIZALES Measurements Intervals [place] Rate: 70 P: MO: QRS: -19 QRSD: 150 T: 143 QT: 474 QTc: 512 Interpretive Statements Paced RHYTHM ELECTRONIC VENTRICULAR PACEMAKER -- CONTOUR ANALYSIS BASED ON INTRINSIC RHYTHM INTRAVENTRICULAR CONDUCTION DELAY [130+ ms QRS DURATION] LEFT VENTRICULAR HYPERTROPHY AND ST-T CHANGE [VOLTAGE CRITERIA PLUS ST/T ABNORMALITY] Compared to ECG 01/15/2021 20:23:56 Intraventricular conduction delay now present Left ventricular hypertrophy now present ST (T wave) deviation now present Atrial-paced complex(es) or rhythm no longer present Electronically Signed On 03-29-2021 0:00:25 CDT by JACKELINE CARRIZALES [id number]
--- NOTE | 2021-03-28 15:32 | XR_ITS ---
WS: [id number] PORTABLE CHEST HISTORY: dyspnea COMPARISON: 01/15/2021 LEFT subclavian pacer is noted. Hyperexpanded lungs from emphysema. Obscuration of the LEFT lower lung field is similar to prior stud ies. Atelectasis and a small amount of fluid was recently described at the LEFT lung base. Small LEFT pleural effusion. Cardiac size: Mildly enlarged cardiac silhouette. Mediastinum/Aorta: Moderate atherosclerosis aorta. No osseous abnormality seen. XR/XR chest 1V portable [id number] IMPRESSION: Chronic emphysema with LEFT basilar atelectasis and a small LEFT pleural effusi on. Cardiomegaly is unchanged.
[2021-03-28 16:17] LABS: Basophils % 0.5 %; Eosinophils # 0.1 10^3/uL (0.0-0.8); Eosinophils % 1.5 %; Hematocrit 33.8 % (37.0-47.0); Lymphocytes # 0.7 10^3/uL (0.8-4.8); Lymphocytes % 11.3 %; Mean Corpuscular HGB Conc 29.6 g/dL (30.0-36.0); Mean Corpuscular Hemoglobin 29.7 pg (28.0-34.0); Mean Corpuscular Volume 100.3 fl (81-99); Mean Platelet Volume 10.4 fL (7.4-10.4); Monocytes # 0.6 10^3/uL (0.2-0.9); Neutrophils # 4.65 10^3/uL (1.8-7.7); Neutrophils % 76.5 %; Nucleated Red Blood Cells % 0 %; Platelet Count 262 10^3/cmm (130-400); Red Blood Count 3.37 10^6/uL (4.1-5.3); Red Cell Distribution Width 20.4 % (12.1-15.1); White Blood Count 6.1 10^3/uL (4.0-10.0)
[2021-03-28 16:35] LABS: Troponin(5th) Baseline 50 ng/L (0-10)
[2021-03-28 16:44] LABS: Blood Urea Nitrogen 40 mg/dL (8-23); Calcium 9.3 mg/dL (8.5-10.5); Carbon Dioxide 22 mmol/L (22-29); Chloride 106 mmol/L (98-107); Glucose 141 mg/dL (65-115); NT Pro B Type Natriuretic Pept 11771 pg/mL (0-450); Osmolality Calculated 308 mOsm/kg (285-295); Sodium 143 mmol/L (136-145)
--- NOTE | 2021-03-28 17:03 | PM.HP ---
Providers/Chief Complaint Primary Care Provider: Janie Agustin MD Chief Complaint: DIFF BREATHING History of Present Illness Teena Timmons is a 75 year old female, who carries history of peripheral arterial disease, atrial fibrillation, ADOBE BLOCK MAKER-D, 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 Berg presented with chief complaint abdominal bloating and shortness of breath. Patient is stating that she is compliant with her medications she takes 2 mg of Bumex twice a day however because of his chronic kidney disease she is trying her best to drink 1800 mL of fluid every day. She has been noticing weight gain, abdominal bloating, orthopnea and PND. She is denying chest pain, fever. For last few days she was getting more short of breath and decided to come to the hospital for further evaluation on 03/28. In the ER she was diagnosed with CHF exacerbation she was given IV diuretics and admitted to [facility] for further diuresis. Her Bumex dose was increased to 2 mg twice a day along metolazone, she was put on 2 L of nasal cannula in the ER, I have requested nurse to do home O2 evaluation patient does not use oxygen at home she does have CPAP at home. Hemoglobin is stable no significant change in delta troponin She is afebrile, no signs of leukocytosis, chest x-ray consistent with vascular congestion left greater than right with small left-sided pleural effusion, chronic kidney disease creatinine around baseline 1.5, BNP 11,000, procalcitonin 0.1 Review of records: Patient underwent peripheral diagnostic procedure which showed occluded anterior tibial artery stents however she had excellent collateral blood supply to the foot on the left side. Right-sided pictures were limited however did show distal SFA/popliteal occlusion with collateral supply below the knee. According to patient she had more pain since getting peripheral angiogram done below the knee on the left side Please review cardiology note for further details Review of Systems Const: Denies: fever(s) Eyes: Denies: change in vision ENMT: Denies: throat pain Card: Reports: swelling of feet/ankles, dyspnea on exertion and orthopnea; Denies: chest pain Resp: Reports: dyspnea GI: Reports: bloating : Denies: urinary urgency Musc: Denies: neck pain Skin/Breast: Denies: rash Neuro: Denies: headache(s) Psych: Denies: anxiety Endo: Denies: polyuria Yovanny/Lymph: Denies: easy bruising All/Imm: Denies: urticaria Medications/Allergies Home Medications Medication Instructions Recorded Confirmed Last Taken Type ferrous sulfate 325 mg (65 mg 325 mg PO BID 06/28/19 03/28/21 03/28/21 History iron) tablet magnesium 250 mg tablet 250 mg PO QPM 06/28/19 03/28/21 03/27/21 History vitamin B complex 1 tab PO QPM 06/28/19 03/28/21 03/27/21 History allopurinol 100 mg tablet 100 mg PO QAM 07/06/19 03/28/21 03/28/21 History acetaminophen 500 mg capsule 500 - 1,000 mg PO Q6H PRN 01/12/20 03/28/21 01/23/21 History bumetanide 2 mg PO BID 12/05/20 03/28/21 03/28/21 History clopidogrel 75 mg PO QPM 01/15/21 03/28/21 03/27/21 History gabapentin 300 mg PO BID 01/15/21 03/28/21 03/28/21 History pantoprazole 40 mg PO BID 30 Days #60 tab 01/17/21 03/28/21 03/28/21 Rx Allergies Allergy/AdvReac Type Severity Reaction Status Date / Time Iodinated Contrast Media Allergy Unknown Verified 03/28/21 15:20 latex Allergy hives Verified 03/28/21 15:20 Lcnfmaf-VGX-SyO Reductase AdvReac Intermediate ADR-Muscle Verified 03/28/21 15:20 Inhibitor Pain [Ssurrcf-Pyj-Zih Reductase Inhibitor] TPA Allergy Severe ALGY-Anaphy Uncoded 03/28/21 15:20 laxis PFSH Acute PFSH: Medical History Acute kidney injury superimposed on chronic kidney disease Acute on chronic anemia Acute on chronic systolic heart failure Acute renal failure Alcoholism in recovery Anemia Atrial fibrillation Breast cancer Cardiac resynchronization therapy defibrillator (ADOBE BLOCK MAKER-D) in place Cardiomyopathy Carotid stenosis, bilateral CHF (congestive heart failure) Chronic systolic heart failure CKD (chronic kidney disease) Claudication Confusion COPD (chronic obstructive pulmonary disease) CVA (cerebral vascular accident) DJD (degenerative joint disease), lumbar History of gastric ulcer HTN (hypertension) Hypotension ICD (implantable cardioverter-defibrillator) in place Mitral regurgitation Non-ischemic cardiomyopathy Occult blood positive stool Orthostatic dizziness VALE on CPAP Peripheral vascular disease Pneumonia Presence of Watchman left atrial appendage closure device PUD (peptic ulcer disease) PVCs (premature ventricular contractions) Surgical History History of cardiac radiofrequency ablation History of resection of meningioma Previous back surgery S/P cataract extraction S/P lumpectomy of breast Family History Sister Cancer Social History Smoking and tobacco status: former smoker Alcohol intake: former Other details last alcohol use: recovering alcoholic Household members: spouse Marital status: Vitals/I&O/Wt Last Vital Signs Temp 98.1 F 03/28/21 15:21 Pulse 73 03/28/21 15:46 Resp 20 H 03/28/21 15:21 BP 145/77 03/28/21 15:46 Pulse Ox 98 03/28/21 15:46 Weight last 48 hrs Weight 88.451 kg Physical Exam Narrative: EXAM NARRATIVE: elderly female Appears stated age Clinically mild signs of fluid overload Bilateral breath sounds without any wheezing mild crackles at the base No active audible stridor or wheezing Saturating well on room air Abdomen bloated soft no signs of peritonitis bowel sound present Lower extremity trace edema EOMI, PERRLA Appropriate mood and affect Data : 03/29/21 04:25 03/29/21 04:25 A&P Assessment and plan (1) CHF exacerbation: Status: Acute (2) Dyspnea: Status: Acute (3) Peripheral arterial disease: Status: Acute (4) Chronic kidney disease: Status: Acute (5) Cardiomyopathy: Status: Acute Qualifiers: Cardiomyopathy type: dilated Qualified Code(s): I42.0 - Dilated cardiomyopathy (6) Claudication: Status: Acute Additional A&P Information Acute preserved ejection fraction heart failure exacerbation secondary to increased fluid intake Patient intake of fluid is 1800 mL/day Requested patient to cut down on her fluid intake I will increase her Bumex dose to 2 mg 3 times a day along metolazone and monitor her urine output No active chest pain no signs of ACS I would not repeat echo recent echo was done on 01/16 Patient is doing well on room air does not need oxygen Pulmonary vascular congestion with small left-sided pleural effusion which did not need thoracentesis, anticipating provement with diuresis Peripheral arterial disease no active complaint at this point continue home regimen of gabapentin for neuropathic pain she has undergone vascular intervention without improvement in her leg pain, currently doing well on gabapentin Chronic kidney disease: Creatinine seems around baseline 1.5, 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
--- NOTE | 2021-03-28 17:04 | W.ED.GENADLT ---
HPI - General Adult General: Chief complaint: Shortness of Breath/Dyspnea Stated complaint: DIFF BREATHING Time Seen by Provider: 03/28/21 15:31 History of Present Illness: HPI narrative: CC: Dyspnea HPI: This is a [75] yo patient w/ hx of CHF on bumax 2mg BID presenting ot the ED with dyspnea and increased work of breathing since 3AM. Endorses of orthopnea and increased pillow usage at night. At baseline, patient is followed by [employer] Dr. Marshall. Denies chest pain, N/V, diaphoresis, shoulder pain pain or back pain. Patient has no fever/chill, or sputum production. No GI or other complaints. Denies any pleuritic chest pain, recent surgery/immobilization/travel, or hematemesis or hx of VTE in the past. Onset: 15 hrs ago Duration: ongoing for the last 15 hrs Location: home Severity: mild/moderate Review of Systems Narrative: Constitutional: No fever, no chills. HEENT: No vision changes CV: No chest pain, no palpitations PULM: No productive cough, +dyspnea GI: No abdominal pain, no N/V/D. : No dysuria MSKEL: No muscle pain, leg swelling SKIN: No new rashes, no lesions. NEURO: No headache, no focal weakness. 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 Cardiomyopathy Carotid stenosis, bilateral CHF (congestive heart failure) Chronic systolic heart failure CKD (chronic kidney disease) Claudication Confusion COPD (chronic obstructive pulmonary disease) CVA (cerebral vascular accident) DJD (degenerative joint disease), lumbar History of gastric ulcer HTN (hypertension) Hypotension ICD (implantable cardioverter-defibrillator) in place Mitral regurgitation Non-ischemic cardiomyopathy Occult blood positive stool Orthostatic dizziness VALE on CPAP Peripheral vascular disease Pneumonia Presence of Watchman left atrial appendage closure device PUD (peptic ulcer disease) PVCs (premature ventricular contractions) Surgical History History of cardiac radiofrequency ablation History of resection of meningioma Previous back surgery S/P cataract extraction S/P lumpectomy of breast Family History Sister Cancer Social History Smoking and tobacco status: former smoker Alcohol intake: former Other details last alcohol use: recovering alcoholic Household members: spouse Marital status: Physical Exam Narrative: EXAM NARRATIVE: Head: Atraumatic Eyes: PERRL, conjunctiva without injection ENT: Mucous membrane moist NECK: Supple without lymphadenopathy, mild JVD LUNGS: Increased work of breathing, +diffuse crackles bilaterally. CV: RRR ABDOMEN: Soft, nontender in all quadrants EXTREMITY: Normal ROM, bilateral 1+ edema in the LE, no yao?s sign SKIN: No rash or erythema NEURO: Awake and alert. No focal motor deficits. PSYCH: Normal mood and affect. Course Vital Signs: Vital signs: Vital Signs Temperature 98 F 03/29/21 19:59 Pulse Rate 70 03/29/21 19:59 Respiratory Rate 17 03/29/21 19:59 Blood Pressure 149/76 03/29/21 19:59 Pulse Oximetry 91 03/29/21 19:59 MDM - General Adult MDM Narrative: Medical decision making narrative: [75]yo pt w/ hx of CHF presenting to the ED with dyspnea and increased work of breathing concerning acute on chronic CHF exacerbation. Workup today: ECG, CBC, BMP, Troponin, BNP, CXR. Intervention: IV bumax 2mg after lasix check Based on history, exam and findings, presentation most consistent with acute on chronic heart failure. Low suspicion for PNA, ACS, tamponade, aortic dissection. EKG: No STEMI and no evidence of Brugada?s sign, delta wave, epsilon wave, significantly prolonged QTc, or malignant arrhythmia. Troponin mildly elevated at 50 and BNP elevated at 10K with baseline of 4-8K CXR: mild pulmonary edema [5:06pm] On reassessment, patient is stable and patient is mentating without issues. On NC 4L. Given lasix 40mg x 1 in the ER with significant symptom improvement in dyspnea. Patient will be placed on bipap for comfort. Given the current presentation, I believe the patient would benefit from inpatient admission for continued diuresis and fluid removal. I have discussed a plan with a patient who agrees with inpatient admission. Disposition: Admission Lab Data: Labs: Lab Results 03/28/21 03/28/21 03/28/21 16:03 16:03 16:03 WBC 6.1 10^3/uL 10^3/ uL (4.0-10.0) RBC 3.37 10^6/uL L 10 ^6/uL (4.1-5.3) Hgb 10.0 g/dL L g/dL (11.5-15.3) Hct 33.8 % L % (37.0-47.0) MCV 100.3 fl H fl (81-99) MCH 29.7 pg pg (28.0-34.0) MCHC 29.6 g/dL L g/dL (30.0-36.0) RDW 20.4 % H % (12.1-15.1) Plt Count 262 10^3/cmm 10^3 /cmm (130-400) MPV 10.4 fL fL (7.4-10.4) Neut % (Auto) 76.5 % % Lymph % (Auto) 11.3 % % [place] % (Auto) 10.0 % % Eos % (Auto) 1.5 % % Baso % (Auto) 0.5 % % Neut # (Auto) 4.65 10^3/uL 10^3 /uL (1.8-7.7) Lymph # (Auto) 0.7 10^3/uL L 10^ 3/uL (0.8-4.8) [place] # (Auto) 0.6 10^3/uL 10^3/ uL (0.2-0.9) Eos # (Auto) 0.1 10^3/uL 10^3/ uL (0.0-0.8) Baso # (Auto) 0.0 10^3/uL 10^3/ uL (0.0-0.1) Nucleated RBC % (a uto) 0 % % Nucleated RBCs # 0.0 /100WBC /100W BC Sodium 143 mmol/L mmol/L (136-145) Potassium 4.0 mmol/L mmol/L (3.5-5.1) Chloride 106 mmol/L mmol/L (98-107) Carbon Dioxide 22 mmol/L mmol/L (22-29) Anion Gap 19.0 (5-19) BUN 40 mg/dL H mg/dL (8-23) Creatinine 1.5 mg/dL H mg/dL (0.5-0.9) GFR Calculation Not Reportable Glucose 141 mg/dL H mg/dL (65-115) Calculated Osmolal ity 308 mOsm/kg H mOs m/kg (285-295) Calcium 9.3 mg/dL mg/dL (8.5-10.5) Troponin T Baselin e 50 ng/L H ng/L (0-10) NT-Pro-B Natriuret Pep 38356 pg/mL H pg/ mL (0-450) Procalcitonin 03/28/21 16:03 WBC RBC Hgb Hct MCV MCH MCHC RDW Plt Count MPV Neut % (Auto) Lymph % (Auto) [place] % (Auto) Eos % (Auto) Baso % (Auto) Neut # (Auto) Lymph # (Auto) [place] # (Auto) Eos # (Auto) Baso # (Auto) Nucleated RBC % (a uto) Nucleated RBCs # Sodium Potassium Chloride Carbon Dioxide Anion Gap BUN Creatinine GFR Calculation Glucose Calculated Osmolal ity Calcium Troponin T Baselin e NT-Pro-B Natriuret Pep Procalcitonin 0.19 ng/mL ng/mL (0-0.5) Discharge Plan Discharge Patient Disposition: Admitted As Inpatient Admit Provider: Estrella Veras Clinical Impression: CHF exacerbation, Dyspnea Condition: Stable Coding Level of Care Code ED Brick Handler for Maday Shi
[2021-03-28] MEDS: bumetanide 0.25 mg/mL SDV 10 mL 2 MG IVP ×2 (17:12→20:51)
--- NOTE | 2021-03-28 17:32 | ECG_ITS ---
[facility] Test Date: 2021-03-28 Pat Name: Teena Timmons Department: Room: Gender: Female Global Clinical Leader: : 1945 Requested By: Renetta Bettencourt Order Number: [id number] Reading MD: JACKELINE CARRIZALES Measurements Intervals [place] Rate: 70 P: AK: QRS: 5 QRSD: 151 T: 156 QT: 467 QTc: 505 Interpretive Statements ELECTRONIC VENTRICULAR PACEMAKER ABNORMAL RHYTHM ECG Compared to ECG 03/28/2021 16:10:31 Intraventricular conduction delay no longer present Left ventricular hypertrophy no longer present ST (T wave) deviation no longer present Electronically Signed On 03-29-2021 0:02:20 CDT by JACKELINE CARRIZALES [id number]
[2021-03-28 17:57] LABS: Procalcitonin 0.19 ng/mL (0-0.5)
[2021-03-28 18:08] LABS: SARS Covid-2 Antigen Negative (Negative)
[2021-03-28 19:35] LABS: Troponin 5 2HR 43.85 ng/L (0-10)
[2021-03-28] MEDS: pantoprazole DR 40 mg Tablet PO (20:51)
[2021-03-28] MEDS: clopidogrel 75 mg Tablet PO (20:51)
[2021-03-28] MEDS: metOLazone 5 MG Tablet PO (20:51)
[2021-03-28] MEDS: heparin 5,000 unit/mL INJ 1 mL 5000 UNIT SUBCUT (20:52)
[2021-03-29] VITALS (14 sets, daily range): BP systolic 135–153; BP diastolic 62–81; PULSE 65–74; RESP 14–20; TEMP 36.3–36.8; O2SAT 90–98
[2021-03-29] MEDS: acetaminophen 500 mg Tablet PO ×2 (01:12→20:11)
--- NOTE | 2021-03-29 04:15 | PC.NURSE ---
i reported low temp 97.5 to nurse
[2021-03-29] MEDS: allopurinol 100 mg Tablet PO (05:00)
[2021-03-29 05:26] LABS: Basophils % 0.8 %; Eosinophils # 0.1 10^3/uL (0.0-0.8); Eosinophils % 1.6 %; Hematocrit 32.4 % (37.0-47.0); Hemoglobin 9.5 g/dL (11.5-15.3); Lymphocytes # 0.7 10^3/uL (0.8-4.8); Lymphocytes % 13.4 %; Mean Corpuscular HGB Conc 29.3 g/dL (30.0-36.0); Mean Corpuscular Hemoglobin 29.5 pg (28.0-34.0); Mean Corpuscular Volume 100.6 fl (81-99); Mean Platelet Volume 10.5 fL (7.4-10.4); Monocytes # 0.6 10^3/uL (0.2-0.9); Neutrophils # 3.71 10^3/uL (1.8-7.7); Nucleated Red Blood Cells % 0 %; Platelet Count 241 10^3/cmm (130-400); Red Blood Count 3.22 10^6/uL (4.1-5.3); Red Cell Distribution Width 20.1 % (12.1-15.1); White Blood Count 5.1 10^3/uL (4.0-10.0)
[2021-03-29 06:03] LABS: Alanine Aminotransferase 7 U/L (0-33); Albumin Level 3.6 g/dL (3.5-5.2); Alkaline Phosphatase 100 IU/L (35-105); Anion Gap 18.5 (5-19); Aspartate Amino Transferase 13 U/L (0-32); Blood Urea Nitrogen 43 mg/dL (8-23); C Reactive Protein 10.5 mg/L (0.0-4.9); Calcium 9.3 mg/dL (8.5-10.5); Carbon Dioxide 22 mmol/L (22-29); Chloride 106 mmol/L (98-107); Globulin 2.7 g/dL (1.3-4.6); Glucose 98 mg/dL (65-115); Magnesium 2.3 mg/dL (1.7-2.3); Osmolality Calculated 307 mOsm/kg (285-295); Potassium 3.5 mmol/L (3.5-5.1); Sodium 143 mmol/L (136-145); Total Bilirubin 0.5 mg/dL (0.15-1.2); Total Protein 6.3 g/dL (6.6-8.7)
[2021-03-29] MEDS: ipratropium-albuterol 3 mL Neb INHALATION ×2 (08:30→14:52)
[2021-03-29] MEDS: pantoprazole DR 40 mg Tablet PO ×2 (10:32→17:25)
[2021-03-29] MEDS: sennosides-docusate Tablet 1 TAB PO (10:32)
[2021-03-29] MEDS: heparin 5,000 unit/mL INJ 1 mL 5000 UNIT SUBCUT ×2 (10:33→20:11)
[2021-03-29] MEDS: bumetanide 0.25 mg/mL SDV 10 mL 2 MG IVP ×3 (10:33→20:11)
--- NOTE | 2021-03-29 14:27 | P.PN_ITS ---
Subjective Subjective: Interval history: Patient is doing well, happy with the progress, overnight did use her BiPAP This morning she is feeling much better shortness of breath has improved Doing well on room air She was put on oxygen in the ER however she does not have hypoxia, She is happy with her progress Vitals/I&O/Wt Last Vital Signs Temp 97.5 F L 03/29/21 11:01 Pulse 68 03/29/21 11:01 Resp 18 03/29/21 11:01 BP 145/64 03/29/21 11:01 Pulse Ox 90 03/29/21 11:01 03/28/21 03/29/21 03/29/21 22:59 06:59 14:59 Intake Total 160 / 160 840 / 840 Output Total 370 / 370 Balance -210 / -210 840 / 840 Weight last 48 hrs Weight 88.451 kg Physical Exam Narrative: EXAM NARRATIVE: Saturating well on room air Mild signs of CHF exacerbation Abdominal bloating soft abdomen nontender Bowel sound present EOMI, PERRLA Nonfocal exam No audible stridor or wheezing mild crackles at the base of the lung otherwise no acute respiratory distress She is able to communicate without any conversational dyspnea Data : 03/29/21 04:25 03/29/21 04:25 A&P Assessment and plan (1) CHF exacerbation: Status: Acute (2) Dyspnea: Status: Acute (3) Peripheral arterial disease: Status: Acute (4) Chronic kidney disease: Status: Acute (5) Breast cancer: Status: Acute (6) Claudication: Status: Acute Additional A&P Information Acute preserved ejection fraction heart failure exacerbation Patient was counseled to cut back on her fluid intake Monitor her response on Bumex 6 mg a day with metolazone No need to repeat echo Patient is clinically doing well Plan to discharge her tomorrow Cardiac diet with fluid restriction Doing well on room air Creatinine baseline for chronic kidney disease Full code DVT prophylaxis Heparin Attestations Medical Necessity Statement*: anticipating discharge tomorrow Time Spent in Patient Care: 16 - 35 minutes Coding Level of Care Code Acute Printer Repair Technician for Chg Fwd Diagnoses CHF exacerbation I50.9 Dyspnea R06.00 Peripheral arterial disease I73.9 Chronic kidney disease N18.9 Breast cancer C50.919 Claudication I73.9
[2021-03-29] MEDS: metOLazone 5 MG Tablet PO (17:25)
[2021-03-29] MEDS: clopidogrel 75 mg Tablet PO (17:25)
[2021-03-29] MEDS: ondansetron 2 mg/ML SDV 2 mL 4 MG IVP (21:59)
[2021-03-30 04:00] VITALS: BP 145/79; PULSE 70; RESP 17; TEMP 36.4; O2SAT 93
[2021-03-30] MEDS: allopurinol 100 mg Tablet PO (05:10)
[2021-03-30 05:50] LABS: Anion Gap 18.5 (5-19); Blood Urea Nitrogen 46 mg/dL (8-23); Calcium 9.5 mg/dL (8.5-10.5); Carbon Dioxide 24 mmol/L (22-29); Chloride 102 mmol/L (98-107); Glucose 117 mg/dL (65-115); Osmolality Calculated 305 mOsm/kg (285-295); Potassium 3.5 mmol/L (3.5-5.1); Sodium 141 mmol/L (136-145)
[2021-03-30 07:17] VITALS: BP 150/82; PULSE 71; RESP 18; TEMP 36.9; O2SAT 96
[2021-03-30 07:51] VITALS: PULSE 83; RESP 17; O2SAT 90
[2021-03-30] MEDS: metOLazone 5 MG Tablet PO (09:02)
[2021-03-30] MEDS: bumetanide 0.25 mg/mL SDV 10 mL 2 MG IVP (09:02)
[2021-03-30] MEDS: heparin 5,000 unit/mL INJ 1 mL 5000 UNIT SUBCUT (09:02)
[2021-03-30] MEDS: sennosides-docusate Tablet 1 TAB PO (09:02)
[2021-03-30] MEDS: pantoprazole DR 40 mg Tablet PO (09:02)
--- NOTE | 2021-03-30 09:14 | P.DS_ITS ---
Discharge Providers Date of Admission: 03/28/21 17:05 Date of Discharge: March 30, 2021 Attending Provider at Admission: Estrella Veras MD Attending Provider at Discharge: Estrella Veras MD Primary Care Provider: Janie Agustin MD Diagnoses at Discharge Discharge Diagnosis (1) CHF exacerbation: Status: Acute (2) Dyspnea: Status: Acute (3) Peripheral arterial disease: Status: Acute (4) Chronic kidney disease: Status: Acute (5) Breast cancer: Status: Acute (6) Claudication: Status: Acute Reason for Visit Reason for Visit: DIFF BREATHING Hospital Course Hospital Course History of Present Illness Teena Timmons is a 75 year old female, who carries history of peripheral arterial disease, atrial fibrillation, 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 Berg presented with chief complaint abdominal bloating and shortness of breath. Patient is stating that she is compliant with her medications she takes 2 mg of Bumex twice a day however because of his chronic kidney disease she is trying her best to drink 1800 mL of fluid every day. She has been noticing weight gain, abdominal bloating, orthopnea and PND. She is denying chest pain, fever. For last few days she was getting more short of breath and decided to come to the hospital for further evaluation on 03/28. In the ER she was diagnosed with CHF exacerbation she was given IV diuretics and admitted to [facility] for further diuresis. Her Bumex dose was increased to 2 mg twice a day along metolazone, she was put on 2 L of nasal cannula in the ER, I have requested nurse to do home O2 evaluation patient does not use oxygen at home she does have CPAP at home. Hemoglobin is stable no significant change in delta troponin She is afebrile, no signs of leukocytosis, chest x-ray consistent with vascular congestion left greater than right with small left-sided pleural effusion, chronic kidney disease creatinine around baseline 1.5, BNP 11,000, procalcitonin 0.1 Review of records: Patient underwent peripheral diagnostic procedure which showed occluded ante rior tibial artery stents however she had excellent collateral blood supply to the foot on the left side. Right-sided pictures were limited however did show distal SFA/popliteal occlusion with collateral supply below the knee. According to patient she had more pain since getting peripheral angiogram done below the knee on the left side Please review cardiology note for further details Hospital course Patient was admitted for management of congestive heart failure exacerbation, her Bumex dose was increased to 2 mg 3 times daily along metolazone 5 mg twice daily she was also put on BiPAP. Next day patient was feeling extremely energetic, she was not experiencing any conversational dyspnea, she was eager to return home, decision was made to discharge her on Bumex 2 mg twice a day and metolazone 5 mg twice a day regimen, I have given her metolazone only for the next 5 days. She can follow-up with her telephone messenger outpatient. She did not require any oxygen. She was put on oxygen in the ER she required 2 L which was discontinued after home O2 evaluation. Patient did not denies any chest pain. Her orthopnea PND improved as well. She does have auto CPAP at home. She follows sodium restricted diet. Most likely etiology is increased fluid intake on daily basis she drinks 1800 mL of fluid every day because of her chronic kidney disease. She was asked to cut back on her fluid to around 5546-2145 mL/day. EKG without ischemic or infarct changes, troponin without significant elevation. Chest x-ray without significant form edema. Physical Exam Narrative: EXAM NARRATIVE: saturating well on room air Appears euvolemic Abdominal bloating soft abdomen nontender Bowel sound present EOMI, PERRLA Nonfocal exam No audible stridor or wheezing mild crackles at the base of the lung otherwise no acute respiratory distress She is able to communicate without any conversational dyspnea Discharge Data Data Completed and Pending: Completed Studies During Hospitalization Category Date Time Status XR chest 1V socrates ble [id number] Stat Exams 03/28/21 15:32 Completed Labs from last 24 hours 03/30/21 04:28 Sodium 141 Potassium 3.5 Chloride 102 Carbon Dioxide 24 Anion Gap 18.5 BUN 46 H Creatinine 1.7 H GFR Calculation Not Reportable Glucose 117 H Calculated Osmolal ity 305 H Calcium 9.5 Vitals: Last Vital Signs Temp 98.4 F 03/30/21 07:17 Pulse 83 03/30/21 07:51 Resp 17 03/30/21 07:51 BP 150/82 03/30/21 07:17 Pulse Ox 90 03/30/21 07:51 Discharge Plan Discharge Patient Disposition: Home Condition: Stable Prescriptions: New metolazone 5 mg Tablet 5 mg PO BID 5 Days Qty: 10 RF: 0 Continued allopurinol 100 mg tablet 100 mg PO QAM RF: 0 ferrous sulfate 325 mg (65 mg iron) tablet 325 mg PO BID RF: 0 vitamin B complex [B Complex-Vitamin B12] Tablet 1 tab PO QPM RF: 0 magnesium 250 mg tablet 250 mg PO QPM RF: 0 acetaminophen 500 mg capsule 500 - 1,000 mg PO Q6H PRN (Reason: Pain) RF: 0 gabapentin 300 mg capsule 300 mg PO BID RF: 0 clopidogrel 75 mg tablet 75 mg PO QPM RF: 0 pantoprazole 40 mg tablet,delayed release (DR/EC) 40 mg PO BID 30 Days Qty: 60 RF: 2 bumetanide 2 mg tablet 2 mg PO BID 30 Days Qty: 60 RF: 0 Discharge Orders: Discharge Order (Routine); Ordered 03/30/21 Ordered By: Estrella Veras Referrals: Janie Agustin MD [Primary Care Provider] - (Please call Dr. Agustin wednesday to schedule appointment to be seen this week. ) Discharge Diet: Cardiac Discharge Activity: Increase activity as tolerated Patient Instructions: Metolazone (By mouth) (Zaroxolyn), CHF Stoplight, Opioid Safety Discharge Attestations Time Spent in Discharge Care*: less than 30 min Status at Discharge: Cognitive status at discharge: cognitively intact , Behavioral status at discharge: cooperative , Quality Metrics Clinical Quality Measures During this hospital stay, did patient experience: None Coding Level of Care Code Acute g FW DC note Diagnoses CHF exacerbation I50.9 Dyspnea R06.00 Peripheral arterial disease I73.9 Chronic kidney disease N18.9 Breast cancer C50.919 Claudication I73.9
--- NOTE | 2021-03-30 09:51 | PC.NURSE ---
PT HAS DONE WELL FOR ME TODAY. SHE IS UP AND AMBULATING. SHE IS HAVING GOOD URINARY OUTPUT AND IS COMPLIANT WITH THE FLUID RESTRICTION. SHE IS GETTING READY TO GET DISCHARGED. PTS IV REMOVED PER PT REQUEST. PT TOLERATED WELL. CATHETER TIP INTACT.
[2021-03-30 10:14] VITALS: PULSE 83; RESP 17; O2SAT 90
--- NOTE | 2021-03-30 10:15 | PC.NURSE ---
DISCHARGE PAPERWORK GONE OVER WITH PT. ALL QUESTIONS ANSWERED. PT SAFELY WHEELED OUT OF HOSPITAL BY AID KIRAN.
== END 2021-03-30 10:16 | disposition home or self-care (01) ==
LOC: ER 18:06 → MEDSURG 19:37
PROVIDERS: Admitting Provider Internal Medicine; Emergency Provider Emergency Medicine; PCP Internal Medicine; Visit Provider Internal Medicine
DX: I11.0 Hypertensive heart disease with heart failure (principal); I50.9 Heart failure, unspecified; I42.0 Dilated cardiomyopathy; N18.9 Chronic kidney disease, unspecified; I73.9 Peripheral vascular disease, unspecified; R06.00 Dyspnea, unspecified; I48.91 Unspecified atrial fibrillation; F10.21 Alcohol dependence, in remission; I12.9 Hypertensive chronic kidney disease with stage 1 through stage 4 chronic kidney disease, or unspecified chronic kidney disease; K27.9 Peptic ulcer, site unspecified, unspecified as acute or chronic, without hemorrhage or perforation; Z87.891 Personal history of nicotine dependence
CPT/HCPCS: 36415; 71045; 80048; 80053; 83735; 83880; 84145; 84484; 85025; 86140; 87426; 93005; 94640; 94660; 96372; 96374; 96375; 99291; G0378; J1644; J2405; J3490

== ENCOUNTER 2021-04-14 11:33 | Emergency (ER) | payer MEDICARE, OTHER, SELFPAY ==
[2021-04-14 11:52] VITALS: BP 120/70; PULSE 70; RESP 18; TEMP 36.6; O2SAT 98; BMI 31.1
--- NOTE | 2021-04-14 11:54 | ED_ITS ---
HPI - Epistaxis General: Chief complaint: General Medical Stated complaint: Nose Bleed Time Seen by Provider: 04/14/21 11:54 Source: patient Mode of arrival: ambulatory Limitations: no limitations History of Present Illness: HPI Narrative: 75-year-old female presents to the ER today for a nosebleed. Patient reports this nosebleed is on her right side and started about 10:30 AM this morning. Patient reports she has stuffed Kleenex is in her nose and applied pressure. She can feel the blood running down the back of her throat. Patient is on Plavix. She denies any history of significant nosebleeds other than as a child. She does admit to wearing a CPAP regularly. Patient denies any headaches, dizziness, or other associated symptoms with this nosebleed. She did not try anything at home such as Afrin. Patient denies fever, chills, chest pain, shortness of breath, nausea, vomiting, diarrhea, constipation. MD complaint: epistaxis Location: right nostril Onset (ago): hour(s) Duration: constant Context: other anticoagulant use Associated symptoms: Reports no associated symptoms; Deny fever(s), headache(s) or vomiting Treatment prior to arrival: nose pinching and stuffed nose with tissue Review of Systems General: Reports: 10 or more systems reviewed and unremarkable except in HPI and below Const: Denies: fever(s), chills or body aches ENMT: Reports: epistaxis; Denies: throat pain, nasal discharge or nasal congestion Card: Denies: chest pain or palpitations Resp: Denies: dyspnea, productive cough or wheezing GI: Denies: abdominal pain, nausea, vomiting, diarrhea or constipation Musc: Denies: neck pain or back pain Skin/Breast: Denies: rash Neuro: Denies: headache(s) Psych: Denies: anxiety or depression PFS ED PFSH: Medical History Acute kidney injury superimposed on chronic kidney disease Acute on chronic anemia Acute on chronic systolic heart failure Acute renal failure Alcoholism in recovery Anemia Atrial fibrillation Breast cancer Cardiac resynchronization therapy 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 Cardiomyopathy Carotid stenosis, bilateral CHF (congestive heart failure) Chronic kidney disease Chronic systolic heart failure CKD (chronic kidney disease) Claudication Confusion COPD (chronic obstructive pulmonary disease) CVA (cerebral vascular accident) DJD (degenerative joint disease), lumbar History of gastric ulcer HTN (hypertension) Hypotension ICD (implantable cardioverter-defibrillator) in place Mitral regurgitation Non-ischemic cardiomyopathy Occult blood positive stool Orthostatic dizziness VALE on CPAP Peripheral arterial disease Peripheral vascular disease Pneumonia Presence of Watchman left atrial appendage closure device PUD (peptic ulcer disease) PVCs (premature ventricular contractions) Surgical History History of cardiac radiofrequency ablation History of resection of meningioma Previous back surgery S/P cataract extraction S/P lumpectomy of breast Family History Sister Cancer Social History Smoking and tobacco status: former smoker Alcohol intake: former Other details last alcohol use: recovering alcoholic Household members: spouse Marital status: Physical Exam Const: COMMON NORMALS: no acute distress, average body habitus, patient oriented x3 and alert GENERAL APPEARANCE: cooperative and comfortable ORIENTATION/CONSCIOUSNESS: Yes awake HENMT: COMMON NORMALS: normocephalic and atraumatic HEAD & SCALP: normocephalic and atraumatic NOSE: Epistaxis present (Anterior) on the right THROAT: posterior oropharynx normal (Bleeding is noted in the posterior pharynx from the nasal cavity) Eye: COMMON NORMALS: conjunctivae normal CONJUNCTIVA: Yes conjunctivae normal Neck/C-Spine: COMMON NORMALS: full ROM Lymph: LYMPHATIC: no lymphadenopathy noted Resp: COMMON NORMALS: normal respiratory effort EFFORT & INSPECTION: Yes able to speak in complete sentences Cardio: COMMON NORMALS: regular rate and regular rhythm RATE: regular rate RHYTHM: regular rhythm Extremity: COMMON NORMALS: normal to inspection and full ROM Neuro: COMMON NORMALS: patient oriented x3 SENSORIUM/ORIENTATION: Yes alert Psych: COMMON NORMALS: mental status grossly normal, Normal thought process present and cooperative THOUGHT PROCESS: Normal thought process present Skin: COMMON NORMALS: no rashes or lesions noted and no wounds GENERAL SKIN EXAM: no rashes or lesions noted Course ED course: 75-year-old female presents to the ER today with a nosebleed that began about 1 hour prior to arrival. She has tried stuffing her nose with a Kleenex and applying pressure to stop the bleeding. She has not tried any Afrin or nasal sprays at this time. Patient does wear a CPAP nightly and does not use any type of nasal saline. She does not have frequent nosebleeds. Vital Signs: Vital signs: Vital Signs Temperature 97.8 F 04/14/21 11:52 Pulse Rate 70 04/14/21 11:52 Respiratory Rate 18 04/14/21 11:52 Blood Pressure 120/70 04/14/21 11:52 Pulse Oximetry 98 04/14/21 11:52 MDM - Epistaxis MDM Narrative: Medical decision making narrative: 75-year-old female presented to the ER today for a nosebleed. This began about 1030 this morning and she had not tried any type of spray at home. She does not have frequent nosebleeds. She is on Plavix. She also wears a CPAP nightly which is likely causing the nosebleed. Clamp was placed in the ER for a few minutes and then packing and clamp removed. Patient blew her nose and blew out a large clot. 2 squirts of Afrin were applied and bleeding essentially stopped. Patient remained in the ER for a while after the Afrin was applied and the bleeding did not restart. Discussed with patient home care for bloody noses. Recommended daily use of nasal saline to keep nose moist. Follow-up with PCP in 3 to 5 days. Return to the ER with any new or worsening symptoms. Critical Care Time Critical Care Time: Critical Care Time: No Discharge Plan Discharge Patient Disposition: Home Clinical Impression: Epistaxis Condition: Stable Prescriptions: New Afrin (oxymetazoline) 0.05 % spray,non-aerosol 2 spray intranasal ONCE 3 Days RF: 0 No Action allopurinol 100 mg tablet 100 mg PO QAM RF: 0 ferrous sulfate 325 mg (65 mg iron) tablet 325 mg PO BID RF: 0 vitamin B complex [B Complex-Vitamin B12] Tablet 1 tab PO QPM RF: 0 magnesium 250 mg tablet 250 mg PO QPM RF: 0 acetaminophen 500 mg capsule 500 - 1,000 mg PO Q6H PRN (Reason: Pain) RF: 0 gabapentin 300 mg capsule 300 mg PO BID RF: 0 clopidogrel 75 mg tablet 75 mg PO QPM RF: 0 pantoprazole 40 mg tablet,delayed release (DR/EC) 40 mg PO BID 30 Days Qty: 60 RF: 2 bumetanide 2 mg tablet 2 mg PO BID 30 Days Qty: 60 RF: 0 Discharge Orders: Discharge ED (Routine); Ordered 04/14/21 Ordered By: Nancy Pierre Referrals: Janie Agustin MD [Primary Care Provider] - Discharge Diet: Usual diet Discharge Activity: Limit activity as instructed Patient Instructions: Epistaxis - Adult, Opioid Safety Activity Restrictions/Additional Instructions: Do not bend over for the next 24 to 48 hours. For any bleeding that you cannot get stopped, use Afrin as instructed. Recommend daily nasal saline spray given CPAP use. Follow-up with PCP in 3 to 5 days. Return to the ER with any new or worsening symptoms. Coding Level of Care Code ED Transmission Specialist for Maday Shi
[2021-04-14] MEDS: oxymetazoline 0.05% Nasal Spray 15 mL 2 SPRAY NOSTRIL-R (12:19)
--- NOTE | 2021-04-14 12:19 | PC.NURSE ---
prior to Afrin administration , pt blow nose, large blood clot removed. Afrin applied and then nasal clip.
--- NOTE | 2021-04-14 12:32 | PC.NURSE ---
Pt complaining about dripping in back of throat and one kleenex for nasal right nare dripping blood. bright red
[2021-04-14 13:08] VITALS: BP 124/79; PULSE 71; RESP 16; O2SAT 97
== END 2021-04-14 13:05 | disposition home or self-care (01) ==
PROVIDERS: Emergency Provider Physician Assistant; PCP Internal Medicine
DX: R04.0 Epistaxis (principal); Z79.02 Long term (current) use of antithrombotics/antiplatelets; I11.0 Hypertensive heart disease with heart failure; I50.23 Acute on chronic systolic (congestive) heart failure; Z85.3 Personal history of malignant neoplasm of breast; J44.9 Chronic obstructive pulmonary disease, unspecified; Z86.73 Personal history of transient ischemic attack (TIA), and cerebral infarction without residual deficits; Z95.810 Presence of automatic (implantable) cardiac defibrillator; Z87.891 Personal history of nicotine dependence
CPT/HCPCS: 99283

== ENCOUNTER 2021-04-15 13:36 | Outpatient (CLI) | payer MEDICARE, OTHER, SELFPAY ==
[2021-04-15 14:29] LABS: Carbon Dioxide 30 mmol/L (22-29); Chloride 99 mmol/L (98-107); Glucose 114 mg/dL (65-115); Osmolality Calculated 325 mOsm/kg (285-295); Sodium 144 mmol/L (136-145)
[2021-04-15 14:32] LABS: Blood Urea Nitrogen 85 mg/dL (8-23)
== END 2021-04-15 13:37 | disposition home or self-care (01) ==
PROVIDERS: Internal Medicine; PCP Internal Medicine; Visit Provider Internal Medicine Cardiovascular Disease
DX: I50.22 Chronic systolic (congestive) heart failure (principal)
CPT/HCPCS: 80048

== ENCOUNTER 2021-04-19 09:41 | Inpatient (IN) | payer MEDICARE, OTHER, SELFPAY ==
[2021-04-19] VITALS (13 sets, daily range): BP systolic 118–172; BP diastolic 70–89; PULSE 69–87; RESP 16–24; TEMP 36.4–36.8; O2SAT 92–99; BMI 32.3; BMI 33.9
--- NOTE | 2021-04-19 09:52 | ECG_ITS ---
[facility] Test Date: 2021-04-19 Pat Name: Teena Timmons Department: Room: Gender: Female Director Gift: : 1945 Requested By: Dadnre Collado Order Number: [id number] Reading MD: JACKELINE CARRIZALES Measurements Intervals [place] Rate: 74 P: 176 DC: 193 QRS: -41 QRSD: 161 T: 137 QT: 464 QTc: 518 Interpretive Statements ELECTRONIC VENTRICULAR PACEMAKER -- CONTOUR ANALYSIS BASED ON INTRINSIC RHYTHM LEFT AXIS DEVIATION [QRS AXIS < -30] INTRAVENTRICULAR CONDUCTION DELAY [130+ ms QRS DURATION] LEFT VENTRICULAR HYPERTROPHY AND ST-T CHANGE [VOLTAGE CRITERIA PLUS ST/T ABNORMALITY] Compared to ECG 03/28/2021 17:48:39 No significant change Electronically Signed On 04-21-2021 12:55:40 HOLLOW HANDLE BENCH WORKER by JACKELINE CARRIZALES [id number]
--- NOTE | 2021-04-19 09:52 | CTR_ITS ---
PROCEDURE INFORMATION: Exam: CTA Chest With Contrast Exam date and time: 04/19/2021 9:52 AM Age: 75 years old Clinical indication: Shortness of breath; Prior surgery; Surgery date: 6+ months; Surgery type: Icd; Patient HX: HX of breast CA and dvt C/O SOB w elev d-dimer; Additional info: Dyspnea/hx of dvt TECHNIQUE: Imaging protocol: Computed tomographic angiography of the chest with contrast. 3D rendering (Not supervised by radiologist): MIP and/or 3D reconstructed images were created by the technologist. Total images: 867 Radiation optimization: All CT scans at this facility use at least one of these dose optimization techniques: automated exposure control; mA and/or kV adjustment per patient size (includes targeted exams where dose is matched to clinical indication); or iterative reconstruction. Contrast material: VISI 320; Contrast volume: 82 ml; Contrast route: INTRAVENOUS (IV); COMPARISON: CT chest abd pel wo con 01/15/2021 6:09 PM RADIATION DOSE METRICS: Total DLP (mGy-cm): 580.46 FINDINGS: Tubes, catheters and devices: Pacemaker. Pulmonary arteries: No visible evidence of pulmonary embolism/pulmonary arterial thrombus. Aorta: The thoracic aorta is nonaneurysmal. Moderately advanced arterial sclerotic disease. Lungs: Respiratory motion artifact. Moderate centrilobular emphysema. Minimal dependent atelectasis lung bases. No visible consolidated alveolar airspace disease. Pleural spaces: Scant bilateral pleural effusions, right volume slightly greater than left. Heart: Marked cardiomegaly. No visible pericardial effusion. Coronary artery disease. Atrial appendage cage. Cor pulmonale. Early filling of the inferior vena cava with contrast often seen in right-sided heart failure. Lymph nodes: Few marginally prominent mediastinal lymph nodes stable since prior examination. Doubt of clinical significance. Bones/joints: No visible active or acute osseous pathology. No visible osteolytic or osteoblastic destructive process. Age-appropriate degenerative disease and degenerative disc disease of the spine with increased thoracic kyphosis. Osteopenia/osteoporosis. Soft tissues: Heavy body habitus. 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 CT/CT angio chest PE protcl [id number] IMPRESSION: 1. No visible evidence of pulmonary embolism/pulmonary arterial thrombus. 2. Moderate centrilobular emphysema. 3. Scant bilateral pleural effusions. 4. Marked cardiomegaly with cor pulmonale and coronary artery disease. 5. Other nonurgent, nonemergent, chronic, and age related findings as detailed in text above. Radiation Dose CTDIVOL = (mGy): DLP = 580.46 (mGy-cm)
--- NOTE | 2021-04-19 10:03 | PC.NURSE ---
PT PLACED ON CM, SPO2, AND NIBP MONITORING.
[2021-04-19 10:07] LABS: Basophils % 0.6 %; Eosinophils # 0.1 10^3/uL (0.0-0.8); Eosinophils % 1.1 %; Hematocrit 34.9 % (37.0-47.0); Hemoglobin 10.3 g/dL (11.5-15.3); Lymphocytes # 0.8 10^3/uL (0.8-4.8); Lymphocytes % 14.7 %; Mean Corpuscular HGB Conc 29.5 g/dL (30.0-36.0); Mean Corpuscular Hemoglobin 29.6 pg (28.0-34.0); Mean Corpuscular Volume 100.3 fl (81-99); Monocytes # 0.5 10^3/uL (0.2-0.9); Monocytes % 9.7 %; Neutrophils # 3.95 10^3/uL (1.8-7.7); Neutrophils % 73.5 %; Nucleated Red Blood Cells % 0 %; Platelet Count 261 10^3/cmm (130-400); Red Blood Count 3.48 10^6/uL (4.1-5.3); Red Cell Distribution Width 17.4 % (12.1-15.1); White Blood Count 5.4 10^3/uL (4.0-10.0)
[2021-04-19 10:34] LABS: Alanine Aminotransferase 10 U/L (0-33); Albumin Level 3.9 g/dL (3.5-5.2); Alkaline Phosphatase 126 IU/L (35-105); Anion Gap 17.5 (5-19); Aspartate Amino Transferase 18 U/L (0-32); Blood Urea Nitrogen 56 mg/dL (8-23); Calcium 9.5 mg/dL (8.5-10.5); Carbon Dioxide 27 mmol/L (22-29); Chloride 100 mmol/L (98-107); Creatine Phosphokinase 62 U/L (26-192); Globulin 2.9 g/dL (1.3-4.6); Glucose 105 mg/dL (65-115); Osmolality Calculated 308 mOsm/kg (285-295); Potassium 3.5 mmol/L (3.5-5.1); Sodium 141 mmol/L (136-145); Total Bilirubin 0.6 mg/dL (0.15-1.2); Total Protein 6.8 g/dL (6.6-8.7)
[2021-04-19 10:35] LABS: Troponin(5th) Baseline 85 ng/L (0-10)
[2021-04-19] MEDS: hydrocortisone 100 mg/2 mL SDV IVP (10:47)
[2021-04-19] MEDS: diphenhydrAMINE 50 mg/mL SDV 1mL IVP (10:47)
[2021-04-19] MEDS: sodium chloride 0.9% 1,000 ML 999 ML IV (10:50)
[2021-04-19 11:05] LABS: ABG PCO2 33.1 mmHg (35-45); Alveolar-Arterial Oxygen Gradi 3.3 mmHg (5-10); Arterial Blood Gas Hematocrit 31.1 % (37-47); Blood Gas Allen Test Pos; Blood Gas Operator Identificat ED; Blood Gas Sample Site Radial, left; Blood Gas Sample Type Arterial; Carboxyhemoglobin 1.4 %THgb (0.4-20.1); HGB O2 Sat 95.8 % (95-100); Ionized Calcium Level - ABG 1.2 mmol/L (1.1-1.4); Methemoglobin 0.1 % (0.4-1.5); Oxygen Device ROOM AIR; Oxygen Saturation ABG 97.3; PO2 ABG 81.7 mmHg (80.0-100.0); Potassium Level - ABG 3.7 mmol/L (3.5-5.0); Total Hemoglobin 10.2 g/dL (12-16)
[2021-04-19 11:06] LABS: NT Pro B Type Natriuretic Pept 10435 pg/mL (0-450)
--- NOTE | 2021-04-19 11:26 | ED_ITS ---
HPI - SOB/Dyspnea General: Chief Complaint: Shortness of Breath/Dyspnea Stated Complaint: TROUBLE BREATHING Time Seen by Provider: 04/19/21 09:46 History of Present Illness: HPI Narrative: 75-year-old female presents emergency room chronic increasing shortness of breath over the last 2 days. She was recently taking off of diuretic due to acute kidney injury. She has noticed some slight swelling. She is had some orthopnea as well. She denies any chest pain or discomfort cough has been nonproductive. She has had DVTs in the past she is not currently on any anticoagulation. She is on clopidogrel. She evidently was recently taken off of Bumex because of the acute kidney injury. MD elicited complaint: shortness of breath Pertinent past history: COPD and congestive heart failure Onset (ago): day(s) (2) Timing: constant Severity: moderate Exacerbating factors: lying flat, exertion and coughing Relieving factors: rest and upright position Known history of: COPD and congestive heart failure Associated symptoms: Reports orthopnea; Deny abdominal pain, chest congestion, chest pain, cough, diaphoresis, dizziness, extremity pain, fever(s), hemoptysis, lightheadedness, myalgias, nausea, palpitations, paresthesias, polydipsia, polyuria, rash, sense of impending doom, syncope or vomiting Treatment prior to arrival: none Review of Systems Const: Denies: fever(s) or diaphoresis ENMT: Denies: throat pain, ear or mastoid pain, nasal discharge or nasal congestion Card: Reports: orthopnea; Denies: chest pain, palpitations, lightheadedness or syncope Resp: Denies: hemoptysis or chest congestion GI: Denies: abdominal pain, nausea or vomiting : Denies: flank pain, difficulty voiding, dysuria, urinary frequency or urinary urgency Musc: Denies: extremity pain Skin/Breast: Denies: rash or pruritus Neuro: Denies: dizziness Endo: Denies: polyuria or polydipsia PFSH ED PFSH: Medical History (Updated 04/21/21 @ 15:21 by Dandre Marie DO) Acute kidney injury superimposed on chronic kidney disease Acute on chronic anemia Acute on chronic systolic heart failure Acute renal failure Alcoholism in recovery Anemia Atrial fibrillation Breast cancer Cardiac resynchronization therapy defibrillator (WASHING MACHINE OPERATOR-D) in place Cardiomyopathy Carotid stenosis, bilateral CHF (congestive heart failure) Chronic kidney disease Chronic systolic heart failure CKD (chronic kidney disease) Claudication Confusion COPD (chronic obstructive pulmonary disease) CVA (cerebral vascular accident) DJD (degenerative joint disease), lumbar History of gastric ulcer HTN (hypertension) Hypotension ICD (implantable cardioverter-defibrillator) in place Mitral regurgitation Non-ischemic cardiomyopathy Occult blood positive stool Orthostatic dizziness VALE on CPAP Peripheral arterial disease Peripheral vascular disease Pneumonia Presence of Watchman left atrial appendage closure device PUD (peptic ulcer disease) PVCs (premature ventricular contractions) Surgical History History of cardiac radiofrequency ablation History of resection of meningioma Previous back surgery S/P cataract extraction S/P lumpectomy of breast Family History Sister Cancer Social History Smoking and tobacco status: former smoker Alcohol intake: former Other details last alcohol use: recovering alcoholic Household members: spouse Marital status: Physical Exam Const: COMMON NORMALS: no acute distress GENERAL APPEARANCE: cooperative and comfortable ORIENTATION/CONSCIOUSNESS: Yes awake, Yes oriented to person, Yes oriented to place and Yes oriented to time HENMT: COMMON NORMALS: normocephalic, atraumatic and hearing grossly normal bilaterally HEAD & SCALP: normocephalic and atraumatic Neck/C-Spine: COMMON NORMALS: no JVD Resp: COMMON NORMALS: normal respiratory effort, No retractions and No use of accessory muscles AUSCULTATION: crackles Laterality: bilateral Cardio: COMMON NORMALS: no JVD, regular rate, regular rhythm and No murmurs present (Cardio) RATE: regular rate RHYTHM: regular rhythm GI: COMMON NORMALS: Soft to palpation and No hepatosplenomegaly present AUSCULTATION: Yes normoactive bowel sounds PALPATION: Yes Soft to palpation, No Tenderness to palpation present (GI), No Guarding due to palpation present (GI) and Yes No hepatosplenomegaly present Extremity: COMMON NORMALS: normal to inspection, capillary refill normal, no clubbing, cyanosis or edema, no calf tenderness and no pedal edema Neuro: SENSORIUM/ORIENTATION: Yes oriented to person, Yes oriented to place and Yes oriented to time Skin: COMMON NORMALS: no rashes or lesions noted GENERAL SKIN EXAM: no rashes or lesions noted Course Vital Signs: Vital signs: Vital Signs Temperature 97.6 F 04/21/21 13:56 Pulse Rate 58 L 04/21/21 13:56 Respiratory Rate 16 04/21/21 13:56 Blood Pressure 145/73 04/21/21 13:56 Pulse Oximetry 92 04/21/21 13:56 MDM - SOB/Dyspnea MDM Narrative: Medical decision making narrative: Labs and imaging reviewed. Patient is in some mild heart failure also concerned during course of work-up she has chronic kidney disease and is gotten diet now and will need further adjustments discussed with hospitalist orders written will admit Lab Data: Labs: Lab Results 04/19/21 04/19/21 04/19/21 09:59 09:59 09:59 WBC 5.4 10^3/uL 10^3/ uL (4.0-10.0) RBC 3.48 10^6/uL L 10 ^6/uL (4.1-5.3) Hgb 10.3 g/dL L g/dL (11.5-15.3) Hct 34.9 % L % (37.0-47.0) MCV 100.3 fl H fl (81-99) MCH 29.6 pg pg (28.0-34.0) MCHC 29.5 g/dL L g/dL (30.0-36.0) RDW 17.4 % H % (12.1-15.1) Plt Count 261 10^3/cmm 10^3 /cmm (130-400) MPV 11.0 fL H fL (7.4-10.4) Neut % (Auto) 73.5 % % Lymph % (Auto) 14.7 % % [place] % (Auto) 9.7 % % Eos % (Auto) 1.1 % % Baso % (Auto) 0.6 % % Neut # (Auto) 3.95 10^3/uL 10^3 /uL (1.8-7.7) Lymph # (Auto) 0.8 10^3/uL 10^3/ uL (0.8-4.8) [place] # (Auto) 0.5 10^3/uL 10^3/ uL (0.2-0.9) Eos # (Auto) 0.1 10^3/uL 10^3/ uL (0.0-0.8) Baso # (Auto) 0.0 10^3/uL 10^3/ uL (0.0-0.1) Nucleated RBC % (a uto) 0 % % Nucleated RBCs # 0.0 /100WBC /100W BC D-Dimer Specimen Type Sample Site ABG pH ABG pCO2 ABG pO2 ABG HCO3 ABG O2 Saturation ABG Base Excess Jcarlos Test A-a O2 Gradient Hematocrit Hgb O2 Saturation Carboxyhemoglobin Methemoglobin Total Hemoglobin Ionized Calcium O2 Delivery Device FiO2 Addiction Social Worker ID Sodium 141 mmol/L mmol/L (136-145) Potassium 3.5 mmol/L mmol/L (3.5-5.1) Chloride 100 mmol/L mmol/L (98-107) Carbon Dioxide 27 mmol/L mmol/L (22-29) Anion Gap 17.5 (5-19) BUN 56 mg/dL H mg/dL (8-23) Creatinine 2.2 mg/dL H mg/dL (0.5-0.9) GFR Calculation Not Reportable Glucose 105 mg/dL mg/dL (65-115) Calculated Osmolal ity 308 mOsm/kg H mOs m/kg (285-295) Calcium 9.5 mg/dL mg/dL (8.5-10.5) Total Bilirubin 0.6 mg/dL mg/dL (0.15-1.2) AST 18 U/L U/L (0-32) ALT 10 U/L U/L (0-33) Alkaline Phosphata se 126 IU/L H IU/L (35-105) Creatine Kinase 62 U/L U/L (26-192) Troponin T Baselin e 85 ng/L H ng/L (0-10) Troponin T 120 Min [place] Delta Troponin T Troponin T Hi Sens 6Hr Troponin T Hi Sens 6Hr Delta NT-Pro-B Natriuret Pep Total Protein 6.8 g/dL g/dL (6.6-8.7) Albumin 3.9 g/dL g/dL (3.5-5.2) Globulin 2.9 g/dL g/dL (1.3-4.6) Urine Color Urine Appearance Urine pH Ur Specific Gravit y Urine Protein Urine Glucose (UA) Urine Ketones Urine Blood Urine Nitrate Urine Bilirubin Urine Urobilinogen Ur Leukocyte Dunia ase Urine RBC Urine WBC Ur Squamous Epith Cells Amorphous Sediment Urine Bacteria Urine Mucus 04/19/21 04/19/21 04/19/21 09:59 09:59 10:24 WBC RBC Hgb Hct MCV MCH MCHC RDW Plt Count MPV Neut % (Auto) Lymph % (Auto) [place] % (Auto) Eos % (Auto) Baso % (Auto) Neut # (Auto) Lymph # (Auto) [place] # (Auto) Eos # (Auto) Baso # (Auto) Nucleated RBC % (a uto) Nucleated RBCs # D-Dimer 2.30 ug/mIFEU H u g/mIFEU (0-0.59) Specimen Type Sample Site ABG pH ABG pCO2 ABG pO2 ABG HCO3 ABG O2 Saturation ABG Base Excess Jcarlos Test A-a O2 Gradient Hematocrit Hgb O2 Saturation Carboxyhemoglobin Methemoglobin Total Hemoglobin Ionized Calcium O2 Delivery Device FiO2 Addiction Social Worker ID Sodium Potassium Chloride Carbon Dioxide Anion Gap BUN Creatinine GFR Calculation Glucose Calculated Osmolal ity Calcium Total Bilirubin AST ALT Alkaline Phosphata se Creatine Kinase Troponin T Baselin e Troponin T 120 Min [place] Delta Troponin T Troponin T Hi Sens 6Hr Troponin T Hi Sens 6Hr Delta NT-Pro-B Natriuret Pep 02933 pg/mL H pg/ mL (0-450) Total Protein Albumin Globulin Urine Color Yellow (Yellow) Urine Appearance Clear (CLEAR) Urine pH 5 (5-7) Ur Specific Gravit y 1.010 (1.005-1.030) Urine Protein Neg (Negative) Urine Glucose (UA) Norm (Normal) Urine Ketones Negative (Negative) Urine Blood 3+ H (Negative) Urine Nitrate Negative (Negative) Urine Bilirubin Neg (Negative) Urine Urobilinogen Norm mg/dL mg/dL (Negative) Ur Leukocyte Dunia ase Negative (Negative) Urine RBC 0-4 /hpf H /hpf (0-2) Urine WBC 0-4 /hpf H /hpf (0-5) Ur Squamous Epith Cells 5-10 /hpf H /hpf (0-5) Amorphous Sediment Not Reportable Urine Bacteria 1+ /hpf H /hpf (NONE) Urine Mucus Trace /hpf /hpf 04/19/21 04/19/21 04/19/21 10:54 12:19 16:22 WBC RBC Hgb Hct MCV MCH MCHC RDW Plt Count MPV Neut % (Auto) Lymph % (Auto) [place] % (Auto) Eos % (Auto) Baso % (Auto) Neut # (Auto) Lymph # (Auto) [place] # (Auto) Eos # (Auto) Baso # (Auto) Nucleated RBC % (a uto) Nucleated RBCs # D-Dimer Specimen Type Arterial Sample Site Radial, left ABG pH 7.50 H (7.35-7.45) ABG pCO2 33.1 mmHg L mmHg (35-45) ABG pO2 81.7 mmHg mmHg (80.0-100.0) ABG HCO3 26.0 mmol/L mmol/ L (22-26) ABG O2 Saturation 97.3 ABG Base Excess 3.0 mmol/L H mmol /L (-2.0-2.0) Jcarlos Test Pos A-a O2 Gradient 3.3 mmHg L mmHg (5-10) Hematocrit 31.1 % L % (37-47) Hgb O2 Saturation 95.8 % % (95-100) Carboxyhemoglobin 1.4 %THgb %THgb (0.4-20.1) Methemoglobin 0.1 % L % (0.4-1.5) Total Hemoglobin 10.2 g/dL L g/dL (12-16) Ionized Calcium 1.2 mmol/L mmol/L (1.1-1.4) O2 Delivery Device Room air FiO2 21.0 % % Addiction Social Worker ID Ed Sodium 142.0 mmol/L mmol /L (131-143) Potassium 3.7 mmol/L mmol/L (3.5-5.0) Chloride Carbon Dioxide Anion Gap BUN Creatinine GFR Calculation Glucose 104.0 mg/dL mg/dL (70-115) Calculated Osmolal ity Calcium Total Bilirubin AST ALT Alkaline Phosphata se Creatine Kinase Troponin T Baselin e Troponin T 120 Min [place] 80.16 ng/L H ng/L (0-10) Delta Troponin T -4.84 ABS# L ABS# (0-10) Troponin T Hi Sens 6Hr 70.10 ng/L H ng/L (0-10) Troponin T Hi Sens 6Hr Delta -14.90 ng/L L ng/ L (0-12) NT-Pro-B Natriuret Pep Total Protein Albumin Globulin Urine Color Urine Appearance Urine pH Ur Specific Gravit y Urine Protein Urine Glucose (UA) Urine Ketones Urine Blood Urine Nitrate Urine Bilirubin Urine Urobilinogen Ur Leukocyte Dunia ase Urine RBC Urine WBC Ur Squamous Epith Cells Amorphous Sediment Urine Bacteria Urine Mucus Discharge Plan Discharge Patient Disposition: Admitted As Inpatient Admit Provider: Shani Kramer Clinical Impression: CHF (congestive heart failure), Chronic kidney disease, Breast CA, Atrial fibrillation Condition: Stable Discharge Diet: Cardiac and Low Salt Discharge Activity: Resume usual activity Coding Level of Care Code ED Medicare Coordinator for Chg 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
--- NOTE | 2021-04-19 11:52 | ECG_ITS ---
[facility] Test Date: 2021-04-19 Pat Name: Teena Timmons Department: Room: Gender: Female Lotus Notes Developer: : 1945 Requested By: Dandre Collado Order Number: [id number] Reading MD: JACKELINE CARRIZALES Measurements Intervals [place] Rate: 72 P: PA: QRS: -46 QRSD: 157 T: 130 QT: 463 QTc: 508 Interpretive Statements ELECTRONIC VENTRICULAR PACEMAKER -- CONTOUR ANALYSIS BASED ON INTRINSIC RHYTHM LEFT AXIS DEVIATION [QRS AXIS < -30] INTRAVENTRICULAR CONDUCTION DELAY [130+ ms QRS DURATION] Compared to ECG 04/19/2021 09:55:25 Left ventricular hypertrophy no longer present ST (T wave) deviation no longer present Electronically Signed On 04-21-2021 13:00:48 CLIMATE CHANGE ANALYST by JACKELINE CARRIZALES [email or web address].[employer]/store/[id number]
[2021-04-19 11:57] LABS: Add Urine Microscopic? YES; Bilirubin Urine Neg (Negative); Blood Urine 3+ (Negative); Glucose Urine UA Norm (Normal); Ketones Urine Negative (Negative); Leukocyte Esterase Urine Negative (Negative); Nitrate Urine Negative (Negative); Protein Urine Neg (Negative); Urine Appearance Clear (CLEAR); Urine Color Yellow (Yellow); Urobilinogen Urine Norm (Negative); pH Urine 5 (5-7)
[2021-04-19 12:50] LABS: Troponin 5 2HR 80.16 ng/L (0-10)
[2021-04-19 12:51] LABS: Troponin 5 2HR Delta -4.84 ABS# (0-10)
[2021-04-19 13:42] LABS: Add Urine Culture? No; Bacteria Urine 1+ /hpf; Mucus Urine TRACE /hpf; RBC Urine 0-4 /hpf (0-2); WBC Urine 0-4 /hpf (0-5)
[2021-04-19] MEDS: iodixanol 320 mg/mL 100mL Btl IV (15:07)
--- NOTE | 2021-04-19 15:52 | ECG_ITS ---
[facility] Test Date: 2021-04-19 Pat Name: Teena Timmons Department: Room: Gender: Female Fuse Assembler: : 1945 Requested By: Dandre Collado Order Number: [id number] Reading MD: JACKELINE CARRIZALES Measurements Intervals [place] Rate: 70 P: CT: QRS: -82 QRSD: 183 T: 89 QT: 521 QTc: 563 Interpretive Statements ELECTRONIC VENTRICULAR PACEMAKER ABNORMAL RHYTHM ECG Compared to ECG 04/19/2021 12:45:36 Left-axis deviation no longer present Intraventricular conduction delay no longer present Electronically Signed On 04-21-2021 13:00:20 IRONWORKER APPRENTICE by JACKELINE CARRIZALES [email or web address] [email or web address]/store/[id number]
--- NOTE | 2021-04-19 17:10 | P.HP_ITS ---
Providers/Chief Complaint Primary Care Provider: Janie Agustin MD Chief Complaint: TROUBLE BREATHING History of Present Illness Teena Timmons is a 75 year old female with past medical history of peripheral arterial disease, atrial fibrillation, breast cancer, chronic kidney disease, hypertension, coronary artery disease with defibrillator in place, mitral regurgitation, obstructive sleep apnea, watchman left atrial appendage closure device, peptic ulcer disease, alcoholic currently in remission, congestive heart failure presented to the hospital with complaint of shortness of breath. She was discharged on 03/30/2012/10/2020. She was admitted for CHF exacerbation and her hip Bumex dose was increased to 2 mg 3 times daily along with metolazone 5 mg twice a day and BiPAP was started. She felt a lot better and she was supposed to follow-up with her pole framer machine outpatient. She did not qualify for home oxygen at discharge. She does have auto CPAP at home. Most likely etiology of CHF exacerbation at that admission was that on a daily basis patient drinks about 1800 cc of fluid every day because of her chronic kidney disease. She was asked to cut back on her fluid intake to 14 100-15 100. Today patient presents back to the ER with complaint of increasing shortness of breath over the last 2 days. She says she was recently taken off of her diuretic due to acute kidney injury and since then she has been noticing some swelling. She endorses orthopnea as well. Denies chest pain or discomfort and does have a cough but it is nonproductive. He has a history of DVTs but she is not on any anticoagulation. She is on Plavix. She states she was recently taken off of Bumex because of acute kidney injury. Denies diaphoresis dizziness, hemoptysis, lightheadedness, nausea, palpitations, fever, syncope or vomiting. ED course: Blood pressure 118/72, pulse oximetry 98%, respiratory rate 16, pulse 73, temperature 97.6. Patient's D-dimer was elevated at 2.8 and therefore CTA chest was done to rule out PE. She does not have a pulmonary embolism. BNP 50718. She was given some IV fluids prior to doing the CTA. Now she has been placed on IV diuretics. Hospitalist was called for admission. Review of Systems General: Reports: 10 or more systems reviewed and unremarkable except in HPI and below Medications/Allergies Home Medications Medication Instructions Recorded Confirmed Last Taken Type ferrous sulfate 325 mg (65 mg 325 mg PO BID 06/28/19 04/19/21 04/19/21 History iron) tablet magnesium 250 mg tablet 250 mg PO QPM 06/28/19 04/19/21 04/19/21 History vitamin B complex 1 tab PO QPM 06/28/19 04/19/21 04/18/21 History allopurinol 100 mg tablet 100 mg PO QAM 07/06/19 04/19/21 04/19/21 History acetaminophen 500 mg capsule 500 - 1,000 mg PO Q6H PRN 01/12/20 04/19/21 01/23/21 History clopidogrel 75 mg PO QPM 01/15/21 04/19/21 04/18/21 History gabapentin 300 mg PO BID 01/15/21 04/19/21 04/19/21 History pantoprazole 40 mg PO BID 30 Days #60 tab 01/17/21 04/19/21 04/19/21 Rx bumetanide 1 mg PO BID 04/19/21 04/19/21 04/19/21 History cilostazol 50 mg PO BID 04/19/21 04/19/21 04/19/21 History potassium chloride 20 meq PO DAILY 04/19/21 04/19/21 04/19/21 History Allergies Allergy/AdvReac Type Severity Reaction Status Date / Time morphine Allergy Unknown Unknown Verified 04/19/21 12:21 Iodinated Contrast Media Allergy Unknown Verified 04/14/21 11:51 latex Allergy hives Verified 04/14/21 11:51 [id number] Reductase AdvReac Intermediate ADR-Muscle Verified 04/14/21 11:51 Inhibitor Pain [Dxutxul-Vub-Kzv Reductase Inhibitor] TPA Allergy Severe ALGY-Anaphy Uncoded 04/14/21 11:51 laxis PFSH Acute PFSH: Medical History (Updated 04/19/21 @ 17:21 by Dandre Marie DO) Acute kidney injury superimposed on chronic kidney disease Acute on chronic anemia Acute on chronic systolic heart failure Acute renal failure Alcoholism in recovery Anemia Atrial fibrillation Breast cancer Cardiac resynchronization therapy defibrillator (SQL ETL DEVELOPER-D) in place Cardiomyopathy Carotid stenosis, bilateral CHF (congestive heart failure) Chronic kidney disease Chronic systolic heart failure CKD (chronic kidney disease) Claudication Confusion COPD (chronic obstructive pulmonary disease) CVA (cerebral vascular accident) DJD (degenerative joint disease), lumbar History of gastric ulcer HTN (hypertension) Hypotension ICD (implantable cardioverter-defibrillator) in place Mitral regurgitation Non-ischemic cardiomyopathy Occult blood positive stool Orthostatic dizziness VALE on CPAP Peripheral arterial disease Peripheral vascular disease Pneumonia Presence of Watchman left atrial appendage closure device PUD (peptic ulcer disease) PVCs (premature ventricular contractions) Surgical History History of cardiac radiofrequency ablation History of resection of meningioma Previous back surgery S/P cataract extraction S/P lumpectomy of breast Family History Sister Cancer Social History Smoking and tobacco status: former smoker Alcohol intake: former Other details last alcohol use: recovering alcoholic Household members: spouse Marital status: Vitals/I&O/Wt Last Vital Signs Temp 97.6 F 04/19/21 09:51 Pulse 74 04/19/21 14:11 Resp 16 04/19/21 10:09 BP 172/74 04/19/21 14:11 Pulse Ox 92 04/19/21 14:11 Weight last 48 hrs Weight 90.718 kg Physical Exam Narrative: EXAM NARRATIVE: General: Alert oriented x3, patient seen sitting up in bed in ER room 15. HEENT: Normocephalic, atraumatic, EOMI, breathing nasal cannula Cardio: Regular rate rhythm, normal S1-S2, no murmurs rubs gallops, Respiratory: Diminished bilateral air entry with mild crackles at bases, no wh eezes no rhonchi appreciated GI: Abdomen soft, nontender, nondistended, bowel sounds + Behavior: Appropriate and cooperative Extremities: 1+ edema bilateral lower extremities no cyanosis appreciated. Data : 04/20/21 04:36 04/20/21 04:36 A&P Assessment and plan (1) Mitral regurgitation: Status: Acute (2) HTN (hypertension): Status: Acute (3) Chronic kidney disease: Status: Acute (4) Atrial fibrillation: Status: Acute Qualifiers: Atrial fibrillation type: persistent (not longstanding) Qualified Code(s): I48.19 - Other persistent atrial fibrillation (5) Cardiac resynchronization therapy defibrillator (SQL ETL DEVELOPER-D) in place: Status: Acute (6) CHF (congestive heart failure): Status: Acute Qualifiers: Heart failure chronicity: chronic Heart failure type: combined systolic and diastolic Qualified Code(s): I50.42 - Chronic combined systolic (congestive) and diastolic (congestive) heart failure (7) Peripheral arterial disease: Status: Acute Additional A&P Information Acute preserved ejection fraction heart failure exacerbation secondary to di scontinuing diuretics She was recently discharged from the hospital on Bumex 2 mg 3 times a day along with metolazone and to monitor her urine output. Patient states due to recent acute kidney injury she stopped taking her diuretics She presented with shortness of breath today. Delta troponin negative BNP 10,000 CTA ruled out PE Start her on IV Bumex 1 mg twice daily. Peripheral arterial disease Stable, continue Plavix Acute kidney injury on chronic kidney disease Creatinine baseline around 1.5. She does follow with a adding machine servicer outpatient Creatinine 2.2 today. She did receive IV contrast along with IV fluids but needs diuresis as well. We will repeat labs in a.m. Cardiac diet Full code Fluid restriction DVT prophylaxis Heparin Attestations Medical Necessity Statement*: Greater than 24-hour stay. Creatinine still elevated, will need IV diuresis for another day. Coding Level of Care Code Acute Hand Outside Cutter for Chg Fwd Diagnoses Mitral regurgitation I34.0 HTN (hypertension) I10 Chronic kidney disease N18.9 Atrial fibrillation I48.19 Atrial fibrillation type: persistent (not longstanding) Cardiac resynchronization therapy defibrillator (SQL ETL DEVELOPER-D) in place Z95.810 CHF (congestive heart failure) I50.42 Heart failure chronicity: chronic Heart failure type: combined systolic and diastolic Peripheral arterial disease I73.9
[2021-04-19] MEDS: heparin 5,000 unit/mL INJ 1 mL 5000 UNIT SUBCUT (18:30)
[2021-04-19] MEDS: pantoprazole DR 40 mg Tablet PO (22:35)
[2021-04-19] MEDS: gabapentin 300 mg Capsule PO (22:35)
[2021-04-19] MEDS: cilostazol 100 mg Tablet 50 MG PO (22:35)
[2021-04-19] MEDS: clopidogrel 75 mg Tablet PO (22:35)
[2021-04-19] MEDS: bumetanide 0.25 mg/mL SDV 10 mL 1 MG IVP (22:36)
[2021-04-19] MEDS: ferrous sulfate EC 325 mg Tablet PO (22:36)
[2021-04-20] VITALS (10 sets, daily range): BP systolic 116–147; BP diastolic 67–96; PULSE 69–74; RESP 16–18; TEMP 36.3–36.9; O2SAT 92–98
[2021-04-20] MEDS: allopurinol 100 mg Tablet PO (05:02)
[2021-04-20] MEDS: heparin 5,000 unit/mL INJ 1 mL 5000 UNIT SUBCUT ×2 (05:02→18:30)
[2021-04-20 05:23] LABS: Basophils % 0.3 %; Eosinophils % 0.2 %; Hematocrit 33.1 % (37.0-47.0); Hemoglobin 9.6 g/dL (11.5-15.3); Lymphocytes # 0.8 10^3/uL (0.8-4.8); Lymphocytes % 12.7 %; Mean Corpuscular Hemoglobin 29.3 pg (28.0-34.0); Mean Corpuscular Volume 100.9 fl (81-99); Mean Platelet Volume 11.4 fL (7.4-10.4); Monocytes # 0.8 10^3/uL (0.2-0.9); Monocytes % 12.9 %; Neutrophils # 4.39 10^3/uL (1.8-7.7); Neutrophils % 73.6 %; Nucleated Red Blood Cells % 0 %; Platelet Count 256 10^3/cmm (130-400); Red Blood Count 3.28 10^6/uL (4.1-5.3); Red Cell Distribution Width 17.5 % (12.1-15.1)
[2021-04-20 05:45] LABS: Blood Urea Nitrogen 62 mg/dL (8-23); Calcium 8.8 mg/dL (8.5-10.5); Carbon Dioxide 20 mmol/L (22-29); Chloride 101 mmol/L (98-107); Glucose 90 mg/dL (65-115); Osmolality Calculated 305 mOsm/kg (285-295); Sodium 139 mmol/L (136-145)
[2021-04-20 05:46] LABS: Anion Gap 21.9 (5-19); Potassium 3.9 mmol/L (3.5-5.1)
[2021-04-20] MEDS: cilostazol 100 mg Tablet 50 MG PO ×2 (09:24→18:30)
[2021-04-20] MEDS: gabapentin 300 mg Capsule PO ×2 (09:24→18:30)
[2021-04-20] MEDS: ferrous sulfate EC 325 mg Tablet PO ×2 (09:25→18:31)
[2021-04-20] MEDS: pantoprazole DR 40 mg Tablet PO ×2 (09:25→18:30)
--- NOTE | 2021-04-20 09:43 | P.PN_ITS ---
Subjective Subjective: Interval history: seen today. she was seen with her at bedside. Rn also present in room. She states i feel better but not quite there yet . otherwise offers no complaints Vitals/I&O/Wt Last Vital Signs Temp 97.6 F 04/21/21 13:56 Pulse 58 L 04/21/21 13:56 Resp 16 04/21/21 13:56 BP 145/73 04/21/21 13:56 Pulse Ox 92 04/21/21 13:56 04/21/21 04/21/21 04/21/21 06:59 14:59 22:59 Intake Total 240 / 240 Output Total 600 / 600 1400 / 1400 Balance -600 / 240 -1160 / -1160 Weight last 48 hrs Weight 95.368 kg Weight 93.894 kg Weight 95.311 kg Physical Exam Narrative: EXAM NARRATIVE: General: Alert oriented x3, patient seen sitting up in bed. she appears very happy today Cardio: Regular rate rhythm, normal S1-S2, no murmurs rubs gallops, Respiratory: Diminished bilateral air entry with very mild crackles at bases, GI: Abdomen soft, bowel sounds + Extremities: Trace edema bilateral lower extremities no cyanosis appreciated. Urinary Catheter Management^: Carcamo: Cath Placed During This Visit: yes, but has since been removed by the nurse Reason for Continuing Indwelling Catheter: Acute Urinary Retention or Obstruction Urinary Catheter Date of Insertion: 04/19/21 Urinary Catheter Time of Insertion: 18:28 Date Urinary Catheter Removed: 04/21/21 Time Urinary Catheter Discontinued: 11:22 Data : 04/21/21 04:50 04/21/21 04:50 A&P Assessment and plan (1) Mitral regurgitation: Status: Acute (2) HTN (hypertension): Status: Acute (3) Chronic kidney disease: Status: Acute (4) Atrial fibrillation: Status: Acute Qualifiers: Atrial fibrillation type: persistent (not longstanding) Qualified Code(s): I48.19 - Other persistent atrial fibrillation (5) Cardiac resynchronization therapy defibrillator (SOFT WORK WRAPPER EXAMINER-D) in place: Status: Acute (6) CHF (congestive heart failure): Status: Acute (7) Peripheral arterial disease: Status: Acute Additional A&P Information Acute preserved ejection fraction heart failure exacerbation secondary to discontinuing diuretics She was recently discharged from the hospital on Bumex 2 mg 3 times a day along with metolazone and to monitor her urine output. Patient states due to recent acute kidney injury she stopped taking her diuretics She presented with shortness of breath at admission Delta troponin negative BNP 10,000 CTA ruled out PE Continue IV bumex for another day. Discharge in AM if she continues to improve. Peripheral arterial disease Stable, continue Plavix Acute kidney injury on chronic kidney disease Creatinine baseline around 1.5. She does follow with a insurance specialist outpatient Creatinine 2.2 today. She did receive IV contrast along with IV fluids but needs diuresis as well. We will repeat labs in a.m. Cardiac diet Full code Fluid restriction DVT prophylaxis Heparin Attestations Medical Necessity Statement*: Discharge in AM on oral diuretics. Needs another day of IV diuretics Coding Level of Care Code Acute Laboratory Coordinator for Chg Fwd Diagnoses Mitral regurgitation I34.0 HTN (hypertension) I10 Chronic kidney disease N18.9 Atrial fibrillation I48.19 Atrial fibrillation type: persistent (not longstanding) Cardiac resynchronization therapy defibrillator (SOFT WORK WRAPPER EXAMINER-D) in place Z95.810 CHF (congestive heart failure) I50.9 Peripheral arterial disease I73.9
[2021-04-20] MEDS: bumetanide 0.25 mg/mL SDV 10 mL 1 MG IVP ×2 (12:02→17:47)
--- NOTE | 2021-04-20 15:10 | USCV_ITS ---
Teena Timmons Age: 75 Gender: F : 1945 Exam Date: 04/20/2021 15:53 Ordering Phys: Shani Kramer MD Technologist: [place] [facility] [place]: CHF BP: 123 / 68 HR: Rhythm: Sinus Technical Quality: Adequate MEASUREMENTS (Male / Female) Normal Values 2D ECHO LV Diastolic Diameter PLAX 5.8 cm 4.2 - 5.9 / 3.9 - 5.3 cm LV Systolic Diameter PLAX 5.2 cm IVS Diastolic Thickness 1.3 cm 0.6 - 1.0 / 0.6 - 0.9 cm IVS Systolic Thickness 1.7 cm LVPW Diastolic Thickness 1.3 cm 0.6 - 1.0 / 0.6 - 0.9 cm LVPW Systolic Thickness 1.3 cm LVOT Diameter 2.0 cm LV Ejection Fraction 2D Teich 20.3 % LV Ejection Fraction MOD 2C 25.2 % LV Ejection Fraction 2C AL 24.9 % LA Diameter 5.1 cm LA Width 6.7 cm LA Height 8.1 cm RA Width 5.9 cm RA Height 6.5 cm Aorta at Sinotubular Diameter 2.2 cm FINDINGS Left Ventricle Moderately increased left ventricular cavity size. Severely decreased left ventricular systolic function. Left ventricular ejection fraction is estimated at 30 %. Global left ventricular hypokinesis. Right Ventricle Right Atrium Left Atrium Mitral Valve Aortic Valve Tricuspid Valve Pulmonic Valve Pericardium Aorta CONCLUSIONS This is a limited echo to assess LV function. 1-Moderately increased left ventricular cavity size. Severely decreased left ventricular systolic function. Left ventricular ejection fraction is estimated at 30 %. Global left ventricular hypokinesis. Due to shortening of left ventricle cavity accuracy of left ventricular ejection fraction may not be accurate. If clinically indicated may order limited echo with contrast. 2-Due to suboptimal image quality and foreshortening of the left ventricle Cannot compared with the prior exam Estrella Saucedo MD (Electronically Signed) Final Date: 21 April 2021 19:04 S
[2021-04-20] MEDS: clopidogrel 75 mg Tablet PO (18:30)
[2021-04-21] VITALS: BP 122/80; PULSE 69; RESP 18; TEMP 36.7; O2SAT 96
[2021-04-21 04:00] VITALS: BP 94/58; PULSE 62; RESP 17; TEMP 36.6; O2SAT 95
[2021-04-21 06:13] LABS: Eosinophils # 0.1 10^3/uL (0.0-0.8); Eosinophils % 3.2 %; Hematocrit 33.7 % (37.0-47.0); Lymphocytes # 0.6 10^3/uL (0.8-4.8); Lymphocytes % 15.5 %; Mean Corpuscular HGB Conc 29.7 g/dL (30.0-36.0); Mean Corpuscular Hemoglobin 29.9 pg (28.0-34.0); Mean Corpuscular Volume 100.9 fl (81-99); Mean Platelet Volume 11.3 fL (7.4-10.4); Monocytes # 0.4 10^3/uL (0.2-0.9); Monocytes % 10.8 %; Neutrophils # 2.81 10^3/uL (1.8-7.7); Nucleated Red Blood Cells % 0 %; Platelet Count 246 10^3/cmm (130-400); Red Blood Count 3.34 10^6/uL (4.1-5.3); Red Cell Distribution Width 17.6 % (12.1-15.1); White Blood Count 4.1 10^3/uL (4.0-10.0)
[2021-04-21] MEDS: heparin 5,000 unit/mL INJ 1 mL 5000 UNIT SUBCUT (06:34)
[2021-04-21] MEDS: allopurinol 100 mg Tablet PO (06:34)
[2021-04-21 06:36] LABS: Anion Gap 18.8 (5-19); Blood Urea Nitrogen 58 mg/dL (8-23); Carbon Dioxide 21 mmol/L (22-29); Chloride 106 mmol/L (98-107); Glucose 64 mg/dL (65-115); Magnesium 2.5 mg/dL (1.7-2.3); Osmolality Calculated 308 mOsm/kg (285-295); Potassium 3.8 mmol/L (3.5-5.1); Sodium 142 mmol/L (136-145)
[2021-04-21 07:30] VITALS: BP 137/68; PULSE 70; RESP 16; TEMP 36.4; O2SAT 95
[2021-04-21] MEDS: cilostazol 100 mg Tablet 50 MG PO (08:10)
[2021-04-21] MEDS: ferrous sulfate EC 325 mg Tablet PO (08:11)
[2021-04-21] MEDS: pantoprazole DR 40 mg Tablet PO (08:12)
[2021-04-21] MEDS: gabapentin 300 mg Capsule PO (08:12)
--- NOTE | 2021-04-21 10:04 | PC.CHAP ---
Pastoral Care Encounter/Spiritual Assessment Type of Contact [] Declined director instrumentation visit [] Patient/Family/Request visit [] Outpatient visit [] Follow-up visit [] Physician referral [] Code/Alert [x] Routine visit [] Staff referral [] Actively dying [] Patient sleeping [] Family support [] [] Out of room [] Palliative care [] [] Receiving care in room [] Pre-surgical visit [] Trauma [] Long length of stay [] ICU visit [] Other: Relational/Emotional Strength [] Patient feels connected with others/family/visitors/staff [] Distress [] Loneliness/isolation [] Abandonment Spirituality of Patient [x] Person of Bernie [x] Attends Rastafarian of their Bernie [x] Believes in Prayer [] Reads Bible or Anabaptism materials [] There are Spiritual issues to be addressed Print Binding And Finishing Worker Interventions [x] Prayer [x] Active listening [x] Non-anxious presence [] Spiritual/emotional support [] Crisis/trauma care [] Spiritual counseling [] Bereavement support [] Provided bereavement packet [] Provided Bible/devotional materials [] Provided toy/stuffed animal, coloring book to patient or family member [] Provided Communion [] Anointing/[place] [] Salvation [x] Completed spiritual assessment [] Other: Impact on Illness or Injury [] Angry [] Fearful [] Anxious [] Often cries [] Exhaustion [] Unable to work [] Unable to attend sikh [] Unable to walk/stand [] Unable to read [] Unable to drive [] Unable to eat/drink [] Unable to sleep [] Unable to be with family [] Patient intubated [] Other: Summary Time spent with patient 10 min
[2021-04-21 11:39] VITALS: BP 145/73; PULSE 58; RESP 16; TEMP 36.4; O2SAT 92
--- NOTE | 2021-04-21 12:28 | PM.DCS ---
Discharge Providers Date of Admission: 04/19/21 17:24 Date of Discharge: April 21, 2021 Attending Provider at Admission: Shani Kramer MD Attending Provider at Discharge: Estrella Veras MD Primary Care Provider: Janie Agustin MD Diagnoses at Discharge Discharge Diagnosis (1) Mitral regurgitation: (2) HTN (hypertension): (3) Chronic kidney disease: (4) Atrial fibrillation: Qualifiers: Atrial fibrillation type: persistent (not longstanding) Qualified Code(s): I48.19 - Other persistent atrial fibrillation (5) Cardiac resynchronization therapy defibrillator (SOAKING PITS SUPERVISOR-D) in place: (6) CHF (congestive heart failure): (7) Peripheral arterial disease: Reason for Visit Reason for Visit: TROUBLE BREATHING Hospital Course Hospital Course Patient was admitted for management of CHF exacerbation. Patient is stating that she did not watch her sodium intake and probably ate too much salt over . Recently her diuretics were discontinued. She was diuresed aggressively with IV diuretics. Her symptoms improved. She remained in negative fluid balance. Patient's EKG did not show any ischemic infarctive changes, troponin with negative delta. She never experienced any chest pain or worsening of her symptoms during hospitalization. Limited echo showed EF 30% which is reduced from previous. Please note, patient was discharged in the afternoon and echo was reported around 1900. I did speak with her block stacker Dr. Wong who will plan for echo with contrast, his nurse will call her to make an early appointment. Patient was called on 04/22 and updated about her this echo report. Physical Exam Narrative: EXAM NARRATIVE: Clinically euvolemic Distended abdomen S1, S2 Bilateral breath sound without adventitious rhonchi or crackles Lower extremity no edema trace pedal edema EOMI, PERRLA Urinary Catheter Management^: Carcamo: Cath Placed During This Visit: yes, but has since been removed by the nurse Reason for Continuing Indwelling Catheter: Acute Urinary Retention or Obstruction Urinary Catheter Date of Insertion: 04/19/21 Urinary Catheter Time of Insertion: 18:28 Date Urinary Catheter Removed: 04/21/21 Time Urinary Catheter Discontinued: 11:22 Discharge Data Data Completed and Pending: Completed Studies During Hospitalization Category Date Time Status CT angio chest PE protcl [id number] Stat Cat Scan 04/19/21 09:52 Completed Pending at discharge Category Date Time Status CV. echo limited [id number] Routine Ultrasound 04/20/21 15:10 Taken Labs from last 24 hours 04/21/21 04/21/21 04:50 04:50 WBC 4.1 RBC 3.34 L Hgb 10.0 L Hct 33.7 L MCV 100.9 H MCH 29.9 MCHC 29.7 L RDW 17.6 H Plt Count 246 MPV 11.3 H Neut % (Auto) 69.0 Lymph % (Auto) 15.5 Mccreary % (Auto) 10.8 Eos % (Auto) 3.2 Baso % (Auto) 1.0 Neut # (Auto) 2.81 Lymph # (Auto) 0.6 L Mccreary # (Auto) 0.4 Eos # (Auto) 0.1 Baso # (Auto) 0.0 Nucleated RBC % (a uto) 0 Nucleated RBCs # 0.0 Sodium 142 Potassium 3.8 Chloride 106 Carbon Dioxide 21 L Anion Gap 18.8 BUN 58 H Creatinine 2.0 H GFR Calculation Not Reportable Glucose 64 L Calculated Osmolal ity 308 H Calcium 9.0 Magnesium 2.5 H Vitals: Last Vital Signs Temp 97.6 F 04/21/21 11:39 Pulse 58 L 04/21/21 11:39 Resp 16 04/21/21 11:39 BP 145/73 04/21/21 11:39 Pulse Ox 92 04/21/21 11:39 Discharge Plan Discharge Patient Disposition: Home Condition: Stable Prescriptions: Continued allopurinol 100 mg tablet 100 mg PO QAM RF: 0 ferrous sulfate 325 mg (65 mg iron) tablet 325 mg PO BID RF: 0 vitamin B complex [B Complex-Vitamin B12] Tablet 1 tab PO QPM RF: 0 magnesium 250 mg tablet 250 mg PO QPM RF: 0 gabapentin 300 mg capsule 300 mg PO BID RF: 0 clopidogrel 75 mg tablet 75 mg PO QPM RF: 0 pantoprazole 40 mg tablet,delayed release (DR/EC) 40 mg PO BID 30 Days Qty: 60 RF: 2 cilostazol 50 mg Tablet 50 mg PO BID RF: 0 potassium chloride 20 mEq Tablet Extended Release 20 meq PO DAILY RF: 0 Changed bumetanide 2 mg tablet 1 mg PO BID Qty: 60 RF: 1 Held acetaminophen 500 mg capsule 500 - 1,000 mg PO Q6H PRN (Reason: Pain) RF: 0 Hold Instructions: Resume on 04/28/21. Discharge Orders: Discharge Order (Routine); Ordered 04/21/21 Ordered By: Estrella Veras Other Ambulatory Orders: Basic Metabolic Panel (Routine) Timeframe: 3 Days Facility: [facility] - Location: Lab - Main Lab Ordered By: Estrella Veras Referrals: [facility] [Outside] Janie Agustin MD [Primary Care Provider] - 7-10 days (Dr. Agustin's office will call you with an appointment. If you have not heard from them by Wednesday, please call their office.) Discharge Diet: Cardiac and Low Salt Discharge Activity: Resume usual activity Patient Instructions: Bumetanide (By mouth) (Bumex), Acute Kidney Injury (DC), Hypertension (DC), CHF Stoplight, Opioid Safety Discharge Attestations Time Spent in Discharge Care*: less than 30 min Status at Discharge: Cognitive status at discharge: cognitively intact, Behavioral status at discharge: cooperative, Quality Metrics Clinical Quality Measures During this hospital stay, did patient experience: None Coding Level of Care Code Acute Chg FW DC note Diagnoses Mitral regurgitation I34.0 HTN (hypertension) I10 Chronic kidney disease N18.9 Atrial fibrillation I48.19 Atrial fibrillation type: persistent (not longstanding) Cardiac resynchronization therapy defibrillator (SOAKING PITS SUPERVISOR-D) in place Z95.810 CHF (congestive heart failure) I50.9 Peripheral arterial disease I73.9
[2021-04-21 13:56] VITALS: BP 145/73; PULSE 58; RESP 16; TEMP 36.4; O2SAT 92
== END 2021-04-21 13:57 | disposition home health service (06) | DRG 291 ==
LOC: ER 17:21 → MEDSURG 21:13
PROVIDERS: Admitting Provider Internal Medicine; Emergency Provider Family Medicine; PCP Internal Medicine; Visit Provider Internal Medicine
DX: I13.0 Hypertensive heart and chronic kidney disease with heart failure and stage 1 through stage 4 chronic kidney disease, or unspecified chronic kidney disease (principal); I50.23 Acute on chronic systolic (congestive) heart failure; I48.19 Other persistent atrial fibrillation; N17.9 Acute kidney failure, unspecified; N18.9 Chronic kidney disease, unspecified; D63.1 Anemia in chronic kidney disease; F10.21 Alcohol dependence, in remission; Z85.3 Personal history of malignant neoplasm of breast; Z95.810 Presence of automatic (implantable) cardiac defibrillator; I42.8 Other cardiomyopathies; J44.9 Chronic obstructive pulmonary disease, unspecified; Z86.73 Personal history of transient ischemic attack (TIA), and cerebral infarction without residual deficits; M51.36 Other intervertebral disc degeneration, lumbar region; I73.9 Peripheral vascular disease, unspecified; Z87.01 Personal history of pneumonia (recurrent); Z87.11 Personal history of peptic ulcer disease; Z87.891 Personal history of nicotine dependence; Z79.02 Long term (current) use of antithrombotics/antiplatelets; Z99.89 Dependence on other enabling machines and devices; G47.33 Obstructive sleep apnea (adult) (pediatric); I34.0 Nonrheumatic mitral (valve) insufficiency
CPT/HCPCS: 36415; 36600; 51702; 71275; 80048; 80051; 80053; 81001; 82330; 82550; 82805; 83735; 83880; 84484; 85025; 85378; 93005; 93308; 94664; 96361; 96372; 96374; 96375; 97161; 97530; 99285; J1200; J1644; J1720; J3490; J7030; Q9967

== ENCOUNTER 2021-04-28 16:07 | Emergency (ER) | payer MEDICARE, OTHER, SELFPAY ==
[2021-04-28 16:22] VITALS: BP 128/78; PULSE 96; RESP 16; TEMP 36.6; O2SAT 97
--- NOTE | 2021-04-28 16:27 | XRR_ITS ---
PROCEDURE INFORMATION: Exam: XR Chest Exam date and time: 04/28/2021 4:27 PM Age: 75 years old Clinical indication: Shortness of breath; Prior surgery; Surgery type: Pacer/defib; Additional info: SOB TECHNIQUE: Imaging protocol: XR of the chest. Views: 1 view. COMPARISON: CR XR chest 1V portable [id number] 03/28/2021 3:38 PM FINDINGS: Tubes, catheters and devices: Pacemaker. Lungs: Emphysematous changes suspected. Pleural spaces: Unremarkable. No pleural effusion. No pneumothorax. Heart/Mediastinum: Cardiomegaly. Bones/joints: Unremarkable. XR/XR chest 1V portable [id number] IMPRESSION: 1. Cardiomegaly, lungs are clear. 2. Emphysematous changes suspected.
[2021-04-28 19:45] LABS: Add Urine Microscopic? NO; Charge for UA Resulting for Rev
[2021-04-28 19:49] LABS: Basophils % 0.8 %; Eosinophils # 0.1 10^3/uL (0.0-0.8); Eosinophils % 1.8 %; Hemoglobin 10.7 g/dL (11.5-15.3); Lymphocytes # 0.7 10^3/uL (0.8-4.8); Lymphocytes % 14.2 %; Mean Corpuscular HGB Conc 28.2 g/dL (30.0-36.0); Mean Corpuscular Hemoglobin 28.4 pg (28.0-34.0); Mean Corpuscular Volume 100.8 fl (81-99); Mean Platelet Volume 11.4 fL (7.4-10.4); Monocytes # 0.6 10^3/uL (0.2-0.9); Monocytes % 11.7 %; Neutrophils # 3.47 10^3/uL (1.8-7.7); Neutrophils % 71.3 %; Nucleated Red Blood Cells % 0 %; Platelet Count 252 10^3/cmm (130-400); Red Blood Count 3.77 10^6/uL (4.1-5.3); Red Cell Distribution Width 17.2 % (12.1-15.1); White Blood Count 4.9 10^3/uL (4.0-10.0)
[2021-04-28 20:11] LABS: Glucose Urine UA Trace (Normal); Protein Urine Neg (Negative); Urine Appearance Clear (CLEAR); Urine Color Yellow (Yellow); pH Urine 5 (5-7)
[2021-04-28 20:12] LABS: Bilirubin Urine Neg (Negative); Blood Urine Neg (Negative); Ketones Urine Negative (Negative); Leukocyte Esterase Urine Negative (Negative); Nitrate Urine Negative (Negative); Urobilinogen Urine Norm (Negative)
[2021-04-28 20:21] LABS: Alanine Aminotransferase 40 U/L (0-33); Alkaline Phosphatase 168 IU/L (35-105); Anion Gap 22.2 (5-19); Aspartate Amino Transferase 46 U/L (0-32); Blood Urea Nitrogen 51 mg/dL (8-23); Calcium 8.9 mg/dL (8.5-10.5); Carbon Dioxide 21 mmol/L (22-29); Chloride 105 mmol/L (98-107); Globulin 2.4 g/dL (1.3-4.6); Glucose 88 mg/dL (65-115); NT Pro B Type Natriuretic Pept 12365 pg/mL (0-450); Osmolality Calculated 311 mOsm/kg (285-295); Potassium 4.2 mmol/L (3.5-5.1); Sodium 144 mmol/L (136-145); Total Bilirubin 0.7 mg/dL (0.15-1.2); Total Protein 6.4 g/dL (6.6-8.7)
[2021-04-28 20:31] VITALS: BP 131/78; PULSE 73; RESP 18; O2SAT 97
[2021-04-28] MEDS: bumetanide 1 mg Tablet 2 MG PO (22:25)
--- NOTE | 2021-04-28 22:42 | ED_ITS ---
HPI - General Adult General: Chief complaint: Abdominal Pain Stated complaint: DISTENDED ABD/SOB Time Seen by Provider: 04/28/21 19:49 History of Present Illness: HPI narrative: Patient is a 75-year-old male with history of advanced congestive heart failure presenting to the emergency room with concerns of abdominal distention. Patient tells me that she was recently mid to the hospital last week and is currently on bumetanide 1 mg twice daily. Patient tells me that since discharge from the hospital, she has noticed increasing weight gain including 20 pounds over the last week. In addition, patient has noticed mild abdominal swelling about shortness of breath. Patient says that she requires 3 pillows to sleep at night. Denies any chest pain. Patient came into the emergency room requesting for paracentesis. Patient has never had paracentesis in the past. Denies any history of cirrhosis. Patient says that she is compliant with her medicine has been able to void without any difficulty. She would like to have her creatinine checked today. Denies any fever/chills, cough/runny nose, sore throat, nausea/vomiting, abdominal pain, back pain, neck pain, arm pain, exertional chest pain shortness breath, pleuritic chest pain, recent surgery or immobilization. Onset: chronic Duration:ongoing Location:home Severity:moderate Review of Systems Narrative: Constitutional: No fever, no chills. HEENT: No vision changes CV: No chest pain, no palpitations PULM: no cough, +dyspnea. GI: No abdominal pain, no N/V/D. +abdominal distension : No dysuria MSKEL: No muscle pain, +b/l leg swelling SKIN: No new rashes, no lesions. NEURO: No headache, no focal weakness. HEME: No visible bruises PSYCH: Normal mood PFS ED PFSH: Medical History (Updated 04/28/21 @ 22:30 by Renetta Bettencourt MD) Acute kidney injury superimposed on chronic kidney disease Acute on chronic anemia Acute on chronic systolic heart failure Acute renal failure Alcoholism in recovery Anemia Atrial fibrillation Breast CA Breast cancer Cardiac resynchronization therapy defibrillator (GRAIN ORIGINATION SPECIALIST-D) in place Cardiomyopathy Carotid stenosis, bilateral CHF (congestive heart failure) Chronic kidney disease Chronic systolic heart failure CKD (chronic kidney disease) Claudication Confusion COPD (chronic obstructive pulmonary disease) CVA (cerebral vascular accident) DJD (degenerative joint disease), lumbar History of gastric ulcer HTN (hypertension) Hypotension ICD (implantable cardioverter-defibrillator) in place Mitral regurgitation Non-ischemic cardiomyopathy Occult blood positive stool Orthostatic dizziness VALE on CPAP Peripheral arterial disease Peripheral vascular disease Pneumonia Presence of Watchman left atrial appendage closure device PUD (peptic ulcer disease) PVCs (premature ventricular contractions) Surgical History History of cardiac radiofrequency ablation History of resection of meningioma Previous back surgery S/P cataract extraction S/P lumpectomy of breast Family History Sister Cancer Social History Smoking and tobacco status: former smoker Alcohol intake: former Other details last alcohol use: recovering alcoholic Household members: spouse Marital status: Physical Exam Narrative: EXAM NARRATIVE: Head: Atraumatic Eyes: PERRL, conjunctiva without injection ENT: Mucous membrane moist NECK: Supple, ROM intact LUNGS: +mild coarse breath sounds CV: RRR ABDOMEN: Soft, nontender in all quadrants, +mild ascites EXTREMITY: Normal ROM, 2+ lower extremity edema SKIN: No rash or erythema NEURO: Awake and alert, no focal motor deficits PSYCH: Normal mood and affect Course Vital Signs: Vital signs: Vital Signs Temperature 97.8 F 04/28/21 16:22 Pulse Rate 78 04/28/21 22:57 Respiratory Rate 18 04/28/21 22:57 Blood Pressure 137/92 04/28/21 22:57 Pulse Oximetry 99 04/28/21 22:57 MDM - General Adult MDM Narrative: Medical decision making narrative: Patient is a 75-year-old female with a history of CKD, CHF who presents the emergency room for evaluation of volume overload, abdominal ascites, and shortness of breath. On exam, patient has no increased work of breathing. Patient appears to be volume overloaded. Patient has mild ascites on abdominal exam. 2+ edema in the lower extremity bilaterally Work-up today including proBNP is consistent with CHF exacerbation. Patient has a proBNP of 12,000 which is higher than her previous exacerbation. Patient also have creatinine 1.9 which is similar to patient's baseline. At the present time, patient does not have significant amount of abdominal ascites requiring paracentesis. Patient has not have a prior paracentesis. I have explained to the patient that the risk of performing paracentesis is greater than the therapeutic relief from volume removal. At the present time, upon hearing this, patient understands the risk and declined the procedure. [11:05pm] On today's evaluation, patient has multiple signs of volume overload which indicates that patient may be a candidate for inpatient admission. I have explained that her BNP is higher than her prior admission and she has signs of volume overload which may be more amenable to IV diuresis. Patient tells me that tomorrow she has an appointment with her primary doctor Dr. Agustin as well as had her advanced heart failure doctor, who she wants to urgently follow up with to adjust her medicine. I have offered patient admission today to our hospital for volume overload and CHF exacerbation. However patient tells me that her symptom is not as bad as last time when she was admitted to the hospital for heart failure. In addition, patient tells me that she came in today to be evaluated to see whether she qualifies for paracentesis. At the present time, patient elects for bumetanide in the emergency room with close follow-up with her primary care provider tomorrow as well as her advanced heart failure doctor. I explained to the patient that should she have any symptoms of worsening shortness of breath, abdominal distention, volume overload that she can come back to the emergency room for IV medication. Upon hearing this, patient agrees with plan to do so. I have given patient 2 mg of bumetanide in the emergency room. While observed in the emergency room patient does not have any signs of acute deep on the sensation. I have explained the risk of leaving today which includes worsening respiratory distress and possible respiratory failure requiring intubation. Patient tells me that her is her caregiver and lives at home with her and that she feels safe and comfortable going home with her with close follow-up with outpatient providers. Patient verbalizes understanding of these discussed risk and elect for the alternative of following with outpatient provider as she does not want to miss her appointments. Patient verbalizes understanding to return for any worsening symptoms including for respiratory distress, respiratory depression, difficulty breathing, chest pain, or any new or concerning complaints. Patient verbalizes of everything discussed today. Disposition: Discharge. Patient counseled regarding diagnostic impression, treatment plan. Patient given ED strict return precautions to return for continuation, worsening, or development of new symptoms. Instructed to f/u w/ Dr Agustin tomorrow morning and patient's advance heart failure doctor tomorrow afternoon regarding symptoms today. Patient verbalized understanding. Lab Data: Labs: Lab Results 04/28/21 04/28/21 04/28/21 19:30 19:30 19:38 WBC 4.9 10^3/uL 10^3/ uL (4.0-10.0) RBC 3.77 10^6/uL L 10 ^6/uL (4.1-5.3) Hgb 10.7 g/dL L g/dL (11.5-15.3) Hct 38.0 % % (37.0-47.0) MCV 100.8 fl H fl (81-99) MCH 28.4 pg pg (28.0-34.0) MCHC 28.2 g/dL L g/dL (30.0-36.0) RDW 17.2 % H % (12.1-15.1) Plt Count 252 10^3/cmm 10^3 /cmm (130-400) MPV 11.4 fL H fL (7.4-10.4) Neut % (Auto) 71.3 % % Lymph % (Auto) 14.2 % % Dickenson % (Auto) 11.7 % % Eos % (Auto) 1.8 % % Baso % (Auto) 0.8 % % Neut # (Auto) 3.47 10^3/uL 10^3 /uL (1.8-7.7) Lymph # (Auto) 0.7 10^3/uL L 10^ 3/uL (0.8-4.8) Dickenson # (Auto) 0.6 10^3/uL 10^3/ uL (0.2-0.9) Eos # (Auto) 0.1 10^3/uL 10^3/ uL (0.0-0.8) Baso # (Auto) 0.0 10^3/uL 10^3/ uL (0.0-0.1) Nucleated RBC % (a uto) 0 % % Nucleated RBCs # 0.0 /100WBC /100W BC Sodium 144 mmol/L mmol/L (136-145) Potassium 4.2 mmol/L mmol/L (3.5-5.1) Chloride 105 mmol/L mmol/L (98-107) Carbon Dioxide 21 mmol/L L mmol/ L (22-29) Anion Gap 22.2 H (5-19) BUN 51 mg/dL H mg/dL (8-23) Creatinine 1.9 mg/dL H mg/dL (0.5-0.9) GFR Calculation Not Reportable Glucose 88 mg/dL mg/dL (65-115) Calculated Osmolal ity 311 mOsm/kg H mOs m/kg (285-295) Calcium 8.9 mg/dL mg/dL (8.5-10.5) Total Bilirubin 0.7 mg/dL mg/dL (0.15-1.2) AST 46 U/L H U/L (0-32) ALT 40 U/L H U/L (0-33) Alkaline Phosphata se 168 IU/L H IU/L (35-105) NT-Pro-B Natriuret Pep 28322 pg/mL H pg/ mL (0-450) Total Protein 6.4 g/dL L g/dL (6.6-8.7) Albumin 4.0 g/dL g/dL (3.5-5.2) Globulin 2.4 g/dL g/dL (1.3-4.6) Urine Color Yellow (Yellow) Urine Appearance Clear (CLEAR) Urine pH 5 (5-7) Ur Specific Gravit y 1.010 (1.005-1.030) Urine Protein Neg (Negative) Urine Glucose (UA) Trace H (Normal) Urine Ketones Negative (Negative) Urine Blood Neg (Negative) Urine Nitrate Negative (Negative) Urine Bilirubin Neg (Negative) Urine Urobilinogen Norm mg/dL mg/dL (Negative) Ur Leukocyte Dunia ase Negative (Negative) Imaging Data^: Other Imaging: Radiologist's impression: [address] [id number] ReportSigned Patient: Teena Timmons #: [id number]: 4Acct#:[id number]/Sex: 75 / FADM Date: 04/28/21Loc: ERRoom/Bed:Attending Dr: Ordering Provider/Ordering MD: Annabel Reid Date of Service: 04/28/21 Procedure(s): XR chest 1V portable [id number] Accession Number(s): [id number] Report Number: [id number] PROCEDURE INFORMATION: Exam: XR Chest Exam date and time: 04/28/2021 4:27 PM Age: 75 years old Clinical indication: Shortness of breath; Prior surgery; Surgery type: Pacer/defib; Additional info: SOB TECHNIQUE: Imaging protocol: XR of the chest. Views: 1 view. COMPARISON: CR XR chest 1V portable [id number] 03/28/2021 3:38 PM FINDINGS: Tubes, catheters and devices: Pacemaker. Lungs: Emphysematous changes suspected. Pleural spaces: Unremarkable. No pleural effusion. No pneumothorax. Heart/Mediastinum: Cardiomegaly. Bones/joints: Unremarkable. XR/XR chest 1V portable [id number] IMPRESSION: 1. Cardiomegaly, lungs are clear. 2. Emphysematous changes suspected. Dictated By:Cole Hightower MDSigned By:Cole Hightower MDSigned Date/Time:04/28/210DD/ 1627 Discharge Plan Discharge Patient Disposition: Home Clinical Impression: CHF exacerbation, Volume overload, Ascites Condition: Stable Prescriptions: No Action allopurinol 100 mg tablet 100 mg PO QAM RF: 0 ferrous sulfate 325 mg (65 mg iron) tablet 325 mg PO BID RF: 0 vitamin B complex [B Complex-Vitamin B12] Tablet 1 tab PO QPM RF: 0 magnesium 250 mg tablet 250 mg PO QPM RF: 0 acetaminophen 500 mg capsule 500 - 1,000 mg PO Q6H PRN (Reason: Pain) RF: 0 Hold Instructions: Resume on 04/28/21. gabapentin 300 mg capsule 300 mg PO BID RF: 0 clopidogrel 75 mg tablet 75 mg PO QPM RF: 0 pantoprazole 40 mg tablet,delayed release (DR/EC) 40 mg PO BID 30 Days Qty: 60 RF: 2 cilostazol 50 mg Tablet 50 mg PO BID RF: 0 potassium chloride 20 mEq Tablet Extended Release 20 meq PO DAILY RF: 0 bumetanide 2 mg tablet 1 mg PO BID Qty: 60 RF: 1 Discharge Orders: Discharge ED (Routine); Ordered 04/28/21 Ordered By: Renetta Bettencourt Referrals: Janie Agustin MD [Primary Care Provider] - Discharge Diet: Advance as tolerated Discharge Activity: Resume usual activity Patient Instructions: Heart Failure (ED), Ascites (ED) Activity Restrictions/Additional Instructions: Follow-up with your heart failure doctor tomorrow. Please follow with Dr. Agustin tomorrow get your medication adjusted. Come back to the emergency room you have any shortness of breath, difficulty breathing, chest pain, or any new or concerning complaints Coding Level of Care Code ED Watchmaking Teacher for Maday Shi
[2021-04-28 22:57] VITALS: BP 137/92; PULSE 78; RESP 18; O2SAT 99
== END 2021-04-28 22:59 | disposition home or self-care (01) ==
PROVIDERS: Physician Assistant; Emergency Provider Emergency Medicine; PCP Internal Medicine
DX: E87.70 Fluid overload, unspecified (principal); R18.8 Other ascites; I11.0 Hypertensive heart disease with heart failure; I50.9 Heart failure, unspecified; Z79.02 Long term (current) use of antithrombotics/antiplatelets; Z85.3 Personal history of malignant neoplasm of breast; J44.9 Chronic obstructive pulmonary disease, unspecified; Z86.73 Personal history of transient ischemic attack (TIA), and cerebral infarction without residual deficits; Z95.810 Presence of automatic (implantable) cardiac defibrillator; Z87.891 Personal history of nicotine dependence
CPT/HCPCS: 71045; 80053; 81003; 83880; 85025; 99283

== ENCOUNTER 2021-05-05 13:41 | Outpatient (CLI) | payer MEDICARE, OTHER, SELFPAY ==
[2021-05-05 15:06] LABS: Anion Gap 21.1 (5-19); Blood Urea Nitrogen 55 mg/dL (8-23); Carbon Dioxide 26 mmol/L (22-29); Chloride 93 mmol/L (98-107); Glucose 111 mg/dL (65-115); NT Pro B Type Natriuretic Pept 8607 pg/mL (0-450); Osmolality Calculated 300 mOsm/kg (285-295); Potassium 3.1 mmol/L (3.5-5.1); Sodium 137 mmol/L (136-145)
== END 2021-05-05 13:42 | disposition home or self-care (01) ==
LOC: LAB 13:44
PROVIDERS: PCP Internal Medicine; Visit Provider Internal Medicine Cardiovascular Disease
DX: I50.22 Chronic systolic (congestive) heart failure (principal)
CPT/HCPCS: 36415; 80048; 83880

== ENCOUNTER 2021-05-05 13:45 | Outpatient (CLI) | payer MEDICARE, OTHER, SELFPAY ==
[2021-05-05 14:19] LABS: Basophils # 0.1 10^3/uL (0.0-0.1); Basophils % 1.1 %; Eosinophils # 0.1 10^3/uL (0.0-0.8); Hematocrit 41.6 % (37.0-47.0); Hemoglobin 12.4 g/dL (11.5-15.3); Lymphocytes # 0.5 10^3/uL (0.8-4.8); Lymphocytes % 11.6 %; Mean Corpuscular HGB Conc 29.8 g/dL (30.0-36.0); Mean Corpuscular Hemoglobin 28.8 pg (28.0-34.0); Mean Corpuscular Volume 96.5 fl (81-99); Mean Platelet Volume 11.5 fL (7.4-10.4); Monocytes # 0.4 10^3/uL (0.2-0.9); Monocytes % 8.8 %; Neutrophils # 3.52 10^3/uL (1.8-7.7); Neutrophils % 75.3 %; Nucleated Red Blood Cells % 0 %; Platelet Count 243 10^3/cmm (130-400); Red Blood Count 4.31 10^6/uL (4.1-5.3); Red Cell Distribution Width 16.3 % (12.1-15.1); White Blood Count 4.7 10^3/uL (4.0-10.0)
[2021-05-05 14:21] LABS: Charge for UA Resulting for Rev
[2021-05-05 15:02] LABS: Calcium 8.8 mg/dL (8.5-10.5)
[2021-05-05 15:10] LABS: Parathyroid Hormone 218.4 pg/mL (15-65)
[2021-05-05 15:48] LABS: Bilirubin Urine Neg (Negative); Blood Urine Neg (Negative); Glucose Urine UA Norm (Normal); Ketones Urine Negative (Negative); Leukocyte Esterase Urine 2+ (Negative); Nitrate Urine Negative (Negative); Protein Urine Neg (Negative); Specific Gravity, Urine 1.005 (1.005-1.030); Urine Appearance Hazy (CLEAR); Urine Color Straw (Yellow); Urobilinogen Urine Norm (Negative); pH Urine 7 (5-7)
[2021-05-05 15:49] LABS: Add Urine Culture? Yes; Add Urine Microscopic? YES; Bacteria Urine 2+ /hpf; Mucus Urine TRACE /hpf; Transitional Epi Cells Urine 0-4 /hpf
[2021-05-05 18:45] LABS: Creatinine Urine, Random 33 mg/dL (28-217)
[2021-05-05 18:48] LABS: Microalbum Creatinine Ratio Ur 30 mg/dL (0-20); Microalbumin Random Urine 1 ug/dL (0-20)
== END 2021-05-05 13:46 | disposition home or self-care (01) ==
LOC: LAB 13:50
PROVIDERS: PCP Internal Medicine; Visit Provider Registered Nurse
DX: I12.9 Hypertensive chronic kidney disease with stage 1 through stage 4 chronic kidney disease, or unspecified chronic kidney disease (principal); N18.4 Chronic kidney disease, stage 4 (severe); I63.9 Cerebral infarction, unspecified
CPT/HCPCS: 36415; 80048; 81001; 81003; 82044; 82310; 83880; 83970; 85025; 87077; 87086; 87186

== ENCOUNTER 2021-05-21 13:02 | Outpatient (CLI) | payer MEDICARE, OTHER, SELFPAY ==
[2021-05-21 13:51] LABS: Anion Gap 20.9 (5-19); Blood Urea Nitrogen 62 mg/dL (8-23); Calcium 8.8 mg/dL (8.5-10.5); Carbon Dioxide 23 mmol/L (22-29); Chloride 100 mmol/L (98-107); Glucose 89 mg/dL (65-115); NT Pro B Type Natriuretic Pept 7359 pg/mL (0-450); Osmolality Calculated 307 mOsm/kg (285-295); Potassium 3.9 mmol/L (3.5-5.1); Sodium 140 mmol/L (136-145)
== END 2021-05-21 13:03 | disposition home or self-care (01) ==
PROVIDERS: PCP Internal Medicine; Visit Provider Internal Medicine Cardiovascular Disease
DX: I50.22 Chronic systolic (congestive) heart failure (principal)
CPT/HCPCS: 80048; 83880

== ENCOUNTER 2021-06-20 15:46 | Outpatient (CLI) | payer MEDICARE, OTHER, SELFPAY ==
[2021-06-20 16:48] LABS: Blood Urea Nitrogen 61 mg/dL (8-23); Calcium 10.2 mg/dL (8.5-10.5); Carbon Dioxide 21 mmol/L (22-29); Chloride 103 mmol/L (98-107); Glucose 91 mg/dL (65-115); NT Pro B Type Natriuretic Pept 7789 pg/mL (0-450); Osmolality Calculated 309 mOsm/kg (285-295); Sodium 141 mmol/L (136-145)
== END 2021-06-20 15:47 | disposition home or self-care (01) ==
PROVIDERS: PCP Internal Medicine; Visit Provider Internal Medicine
DX: I50.22 Chronic systolic (congestive) heart failure (principal)
CPT/HCPCS: 80048; 83880

== ENCOUNTER 2021-07-28 12:29 | Outpatient (CLI) | payer MEDICARE, OTHER, SELFPAY ==
[2021-07-28 13:34] LABS: Basophils % 0.5 %; Eosinophils # 0.3 10^3/uL (0.0-0.8); Eosinophils % 4.5 %; Hematocrit 38.9 % (37.0-47.0); Hemoglobin 12.3 g/dL (11.5-15.3); Lymphocytes # 0.7 10^3/uL (0.8-4.8); Lymphocytes % 12.3 %; Mean Corpuscular HGB Conc 31.6 g/dL (30.0-36.0); Mean Corpuscular Hemoglobin 29.8 pg (28.0-34.0); Mean Corpuscular Volume 94.2 fl (81-99); Mean Platelet Volume 10.9 fL (7.4-10.4); Monocytes # 0.5 10^3/uL (0.2-0.9); Monocytes % 8.5 %; Neutrophils # 4.08 10^3/uL (1.8-7.7); Neutrophils % 73.8 %; Nucleated Red Blood Cells % 0 %; Platelet Count 217 10^3/cmm (130-400); Red Blood Count 4.13 10^6/uL (4.1-5.3); Red Cell Distribution Width 15.9 % (12.1-15.1); White Blood Count 5.5 10^3/uL (4.0-10.0)
[2021-07-28 13:50] LABS: Alanine Aminotransferase 10 U/L (0-33); Albumin Level 4.1 g/dL (3.5-5.2); Alkaline Phosphatase 140 IU/L (35-105); Anion Gap 18.6 (5-19); Aspartate Amino Transferase 15 U/L (0-32); Blood Urea Nitrogen 61 mg/dL (8-23); Calcium 9.2 mg/dL (8.5-10.5); Carbon Dioxide 25 mmol/L (22-29); Chloride 100 mmol/L (98-107); Globulin 2.7 g/dL (1.3-4.6); Glucose 99 mg/dL (65-115); Osmolality Calculated 307 mOsm/kg (285-295); Potassium 3.6 mmol/L (3.5-5.1); Sodium 140 mmol/L (136-145); Total Bilirubin 0.5 mg/dL (0.15-1.2); Total Protein 6.8 g/dL (6.6-8.7)
--- NOTE | 2021-07-30 18:09 | ONC FU_ITS ---
Dr. 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 She had a anaphylactic reaction to tPA requiring intubation in October of 2013, but eventually recovered from stroke with minimal neurological deficits. She has a history of nonischemic cardiomyopathy and prior alcoholism. She underwent a CT of the chest on 05/04/14, done for a followup of pulmonary nodule which was negative, but it incidentally noted to have a right breast mass. Her mammogram on 05/08/2014 showed a 2 cm mass at 12:00 position extending posteriorly to the chest wall. On 05/16/2014 she underwent an excisional biopsy of the right breast and right sentinel lymph node biopsy. Intraoperatively, the resection was carried out all the way up the pectoralis muscle. Her surgical pathology showed a 2.1 cm low-grade infiltrating ductal carcinoma, posterior margins involved with the DCIS. There was lymphovascular invasion present. One sentinel lymph node was positive for metastatic disease. Prognostic markers showed ER 99%, IN 14%, HER-2/cindy 1+ by IHC and FISH not amplified at 1.2. Thus, pT2 pN1a M0, pathologic stage IIB. She was first seen on 06/08/2014. She declined adjuvant chemotherapy. She completed adjuvant radiation treatment to the right breast on 09/17/14. Adjuvant hormonal therapy with Arimidex began on 07/04/14. Baseline DEXA scan normal. Vitamin D deficiency found, she began on high-dose replacement. had her bone scan done on August 2016 and it was normal tolerating Arimidex very well lAs per patient, she has history of iron deficiency anemia, initially she was diagnosed in 2002 in [place], at that time she underwent EGD colonoscopy and bone marrow evaluation and bone marrow showed low iron and she was started on ferrous sulfate so, for the last 15 years she she has been taken it diligently. Patient was on anticoagulation for cardiac reasons and recently in April 2018, underwent cardiac procedure and at that time anticoagulation was discontinued and restarted on Plavix and aspirin. As per patient her hemoglobin was 12.1 on 05/16/2018 much repeat CBC on 06/14/2018 showed hemoglobin 7.3 g. She was given 3 units of packed RBCs with that her hemoglobin improved to 10 g and repeat CBC on 07/14/2018 showed white blood count 8 hemoglobin 9.3 crit 28.9 MCV 98 platelets 275,000 creatinine 1.26. Now on daily ferrous sulfate , Etiology of significant drop in hemoglobin was not clear as there was no evidence of gross bleeding. As per patient she had colonoscopy done last year by Dr. Puente and it was normal EGD done on 08/05/2018 showed gastritis with erythematous, ulcerative, erosion. There was no mucosal bleeding and rest of the exam was normal. Her iron studies done by Dr. Puente her PMD on 08/04/2018 showed ferritin 17, TIBC 374, B12 955, TSH 3.45. parenteral iron was given in Dr. Puente's office. She was advised to restart Arimidex but took it for 4 days and then stopped taking it because of she started feeling weak went to emergency room where her hemoglobin was 8.4 and then follow-up labs in her primary care physician office was 7.3 then loss she was given 2 units of packed RBCs and on Wednesday she underwent EGD.Restarted on Arimidex, tolerating well now Since her last visit patient said in November 2018 she received 2 units of packed RBC 4 hemoglobin 7.1 g subsequently on 12/16/2018 she underwent repeat EGD by Dr. Puente which showed bleeding stomach ulcer, as per patient cauterization was done with that bleeding stopped. Her repeat CBC done on 01/12/2019 shows white blood count 6.3 hemoglobin 12.7 hematocrit 37.8 platelets 259,000 and on 02/28/2019, as per patient, CBC done in her PMDs office showed hemoglobin 13.6. Other medical issues, recently diagnosed with progressive congestive heart failure as there is a drop in her ejection fraction from 45 to 20, now cardiac workup is in progress to rule out underlying coronary artery disease. Patient developed left foot pain for which x-ray of left foot was done on 01/30/2019 which showed no acute findings but osteoporosis in the mild first metatarsophalangeal joint degenerative arthritis changes. Completed 5 years of adjuvant therapy with Arimidex on 07/10/2019 As per patient recently underwent EGD which showed gastric ulcer and Dr. Puente did cauterization since then her hemoglobin has been improving and on 07/10/2019 her hemoglobin gone up to 13.5 hematocrit 42.5 and white blood count 5.5, platelets 214,000. Patient also underwent multiple cardiac procedures including pacemaker placement, AV node ablation, Interim history, as per patient in December 2020 patient developed lower extremity arterial insufficiency due to arterial clot and Dr. Saucedo try to restore blood supply but due to contrast given during procedure she did develop acute renal failure which was self-limiting. Came for follow-up, denies any specific complaints, no fever chills, no nausea or vomiting, no diarrhea or constipation, no new bony pains, no hemoptysis or hematemesis, no jaundice, no headaches blurred vision or double vision, no nipple discharge or breast mass palpable. Patient was due for her follow-up mammogram but as per patient she called to schedule but she was told they are waiting for orders from our clinic, although mammogram was ordered earlier . Medications: Acetaminophen 1 Tablet (of 500 mg) Oral PRN, Allopurinol 1 Tablet (of 100 mg) Oral daily, B Complex Tablet Oral daily, Clopidogrel Bisulfate (75 mg) Tablet Oral daily, Ferrous Sulfate 1 (325 (65 fe) mg) Tablet Oral b.i.d., Gabapentin (300 mg) Capsule Oral daily, Lasix 1 (80 mg) Tablet Oral daily, Magnesium 1 (250 mg) Tablet Oral daily, metOLazone (2.5 mg) Tablet Oral Take as Directed, Metoprolol Succinate ER 1 Tablet (of 100 mg) Tablet SR 24 HR Oral daily, Pantoprazole Sodium (40 mg) Tablet, enteric coated Oral daily, Potassimin (20 mg) Tablet Oral daily, Torsemide (20 mg) Tablet Oral b.i.d. Allergies: Latex (bandaids), statins, and tpa. Review of Systems: Review of Systems is not available for this patient. Vital Signs: Performed on Jul 28, 2021 16:23 Height - 66.00 in Weight - 192.8 lbs (LOW) BSA - 1.97 sq.m BMI - 31.12 (HIGH) Temperature - 97.9 F (LOW) Pulse - 76 /min Respiration - 16 /min BP - 124/69 mm(hg) O2 Sat - 97 % Pain - 4 Fatigue - 4 Performance Status: 1 - No physically strenuous activity, but ambulatory and able to carry out light or sedentary work (e.g. office work, light house work). (ECOG) Physical Examination: Respiratory - Lungs are clear to auscultation, Cardiovascular - Regular rate and rhythm of heart, Gastrointestinal - Soft, bowel sounds present, Extremities - No visible edema. Lab/Imaging: Most recent lab results are not available for this patient. Impression: This is a 73-year-old postmenopausal woman with stage IIB, [id number], ER/IN positive, HER-2 negative invasive ductal carcinoma of the right breast, with a positive posterior margin involved with DCIS. As per surgeon, the resection was carried out all the way back to the pectoralis musculature. No further breast tissue remains posterior to the mass itself. She declined adjuvant chemotherapy. She completed adjuvant radiation treatment. Adjuvant hormonal therapy with Arimidex for 5 years began on 07/04/14. Completed 5 years of Arimidex on 07/10/2019 Mammogram in May 2016 was BIRADS II Mammogram done on 06/07/2017 showed BI-RADS 2???benign mammogram done on July 11, 2019 showed BI-RADS 2, benign Alkaline phosphatase is elevated . No bony symptoms. History of iron deficiency anemia diagnosed in 2002 with bone marrow biopsy done in [place] showed low iron stores in bone marrow. And normal colonoscopy and EGD at that time. Patient is on daily ferrous sulfate since then. History of 3 packed RBCs infusion on 06/14/2018 at that time her hemoglobin was 7.3 compared to 12.1 on 05/16/2018, etiology was not clear e.g. chronic GI blood loss from upper GI or small bowel AVMs as bilirubin was within normal limits Status post 2 units of packed RBC on 08/04/2018 followed by EGD on 08/05/2018 which showed gastritis but no active bleeding and her repeat iron studies on 08/04/2018 showed ferritin 17 TIBC 374 B12 955, TSH 3.45. s/p parenteral iron in Dr. Puente's office History of chronic anticoagulation till April 2019 when she underwent cardiac procedure and after that antipronation was discontinued and started on Plavix and aspirin. Plan: Discussed with patient regarding her labs white blood count 5.5 hemoglobin 12.3 hematocrit 38.9 platelets 217,000 CMP within normal limits except creatinine 1.6 compared to 1.84 previously, alk phos 140 compared to 133 previously Clinically, patient doing well with no new signs symptoms testing of disease recurrence. Her lab work-up is within normal range except mildly elevated alk phos with mild renal insufficiency. We will continue to monitor patient has no new bony pains, no new symptoms and reorder her follow-up mammogram and she will return to clinic in 1 year for follow-up with CBC CMP and yearly follow-up mammogram Signed By: Ace Dukes M.D. <<Signature on File>>
== END 2021-07-28 12:30 | disposition home or self-care (01) ==
LOC: ONCMED 12:34
PROVIDERS: PCP Internal Medicine; Visit Provider Internal Medicine Hematology & Oncology
DX: Z08 Encounter for follow-up examination after completed treatment for malignant neoplasm (principal); Z85.3 Personal history of malignant neoplasm of breast; Z90.11 Acquired absence of right breast and nipple; Z92.21 Personal history of antineoplastic chemotherapy; R79.89 Other specified abnormal findings of blood chemistry; Z86.2 Personal history of diseases of the blood and blood-forming organs and certain disorders involving the immune mechanism; Z79.01 Long term (current) use of anticoagulants
CPT/HCPCS: 36415; 80053; 85025; 99214

== ENCOUNTER → 2021-08-07 14:03 | Outpatient (BNVA) | payer MEDICARE, OTHER, SELFPAY | PROVIDERS: PCP Internal Medicine; Visit Provider Specialist | DX: G62.9 Polyneuropathy, unspecified (principal); Z87.891 Personal history of nicotine dependence; F10.21 Alcohol dependence, in remission | CPT/HCPCS: 99204 ==

== ENCOUNTER 2021-08-15 12:55 | Outpatient (CLI) | payer MEDICARE, OTHER, SELFPAY ==
--- NOTE | 2021-08-15 13:25 | MM_ITS ---
WS: [id number] DIAGNOSTIC BILATERAL 3D TOMOSYNTHESIS DIGITAL MAMMOGRAM WITH CAD HISTORY: HX OF BREAST CA COMPARISON: 07/29/2020, 07/11/2019 and 06/06/2018 TECHNIQUE: Bilateral craniocaudad, mediolateral oblique, and mediolateral views are submitted. Comput er aided detection utilized. Breast composition: There are scattered areas of fibroglandular density. Volume loss in the RIGHT jonathan ast with postsurgical changes and dystrophic calcifications. Biopsy clip in the lateral RIGHT breast. MM/[place] [id number] IMPRESSION: BI-RADS: 2-Benign FOLLOW UP: 1 Year Follow-up
== END 2021-08-15 12:56 | disposition home or self-care (01) ==
LOC: RAD 12:58
PROVIDERS: PCP Internal Medicine; Visit Provider Internal Medicine Hematology & Oncology
DX: Z85.3 Personal history of malignant neoplasm of breast (principal)
CPT/HCPCS: 77062

== ENCOUNTER 2021-08-30 12:40 | Emergency (ER) | payer MEDICARE, OTHER, SELFPAY ==
[2021-08-30 13:01] VITALS: BP 121/76; PULSE 70; RESP 18; TEMP 37; O2SAT 95; BMI 30.3
--- NOTE | 2021-08-30 13:37 | ECG_ITS ---
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 Measurements Intervals [place] Rate: 70 P: MT: QRS: -87 QRSD: 190 T: 89 QT: 512 QTc: 553 Interpretive Statements ELECTRONIC VENTRICULAR PACEMAKER ABNORMAL RHYTHM ECG Compared to ECG 04/19/2021 15:48:06 No significant changes Electronically Signed On 08-30-2021 19:06:39 CDT by Christiano Max M.D. [email or web address]
--- NOTE | 2021-08-30 13:38 | W.ED.GENADLT ---
HPI - General Adult General: Chief complaint: General Medical Stated complaint: blood pressure issues Time Seen by Provider: 08/30/21 13:10 History of Present Illness: Patient is a 75-year-old female with a history of CHF currnetly torsemide 20mg daily, anemia, CKD, hypertension who presents emergency room for evaluation of generalized weakness for last 3 weeks that has not improved, new onset of diarrhea x3 days, and low blood pressure reading at home x 3 days. Patient tells me that over the last 3 weeks, she has been coming feeling increasingly tired. Most recently, 5 days ago, patient called her primary care provider for concerns of low blood pressure reading at home with blood pressure of 80/50. Her primary care doctor told her to decrease her torsemide dose from 40 mg daily to 20 mg. Since then, patient has gained 6 pounds. Patient tells me that the fatigue has been going on for the last 3 weeks. Patient has no associated chest pain, shortness breath, palpitation, nausea/vomiting, abdominal complaints no hematochezia. Patient has had multiple episodes of loose/watery stool in the last 3 days. Patient denies any recent antibiotics or travel, vomiting, or decreased p.o. intake. Onset: 3 weeks of fatigue, low blood pressure x 3 days at home, diarrhea x 3 days Duration:ongoing Location:home Severity:moderate Associated symptoms: Deny chest pain, dyspnea, nausea, rash, palpitations or vomiting Review of Systems Const: Reports: fatigue; Denies: fever(s) or chills Eyes: Denies: change in vision ENMT: Denies: mouth pain Card: Denies: chest pain or palpitations Resp: Denies: dyspnea or non-productive cough GI: Reports: diarrhea; Denies: abdominal pain, nausea or vomiting : Denies: dysuria Musc: Denies: extremity pain Skin/Breast: Denies: rash or new lesions Neuro: Denies: weakness in extremities Psych: Reports: other (Normal mood) Yovanny/Lymph: Denies: easy bruising PFS ED PFSH: Medical History Acute kidney injury superimposed on chronic kidney disease Acute on chronic anemia Acute on chronic systolic heart failure Acute renal failure Alcoholism in recovery Anemia Atrial fibrillation Breast CA Breast cancer Cardiac resynchronization therapy 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 Cardiomyopathy Carotid stenosis, bilateral CHF (congestive heart failure) Chronic kidney disease Chronic systolic heart failure CKD (chronic kidney disease) Claudication Confusion COPD (chronic obstructive pulmonary disease) CVA (cerebral vascular accident) DJD (degenerative joint disease), lumbar History of gastric ulcer HTN (hypertension) Hypotension ICD (implantable cardioverter-defibrillator) in place Mitral regurgitation Non-ischemic cardiomyopathy Occult blood positive stool Orthostatic dizziness VALE on CPAP Peripheral arterial disease Peripheral vascular disease Pneumonia Presence of Watchman left atrial appendage closure device PUD (peptic ulcer disease) PVCs (premature ventricular contractions) Surgical History History of cardiac radiofrequency ablation History of resection of meningioma Previous back surgery S/P cataract extraction S/P lumpectomy of breast Family History Sister Cancer Social History Smoking and tobacco status: former smoker Alcohol intake: former Other details last alcohol use: recovering alcoholic Household members: spouse Marital status: Physical Exam Const: COMMON NORMALS: alert HENMT: COMMON NORMALS: atraumatic HEAD & SCALP: atraumatic MOUTH: moist mucous membranes not abnormal Eye: COMMON NORMALS: EOMs intact bilaterally and conjunctivae normal CONJUNCTIVA: Yes conjunctivae normal Neck/C-Spine: COMMON NORMALS: full ROM and supple Resp: COMMON NORMALS: normal respiratory effort and clear to auscultation bilaterally AUSCULTATION: clear to auscultation bilaterally Cardio: COMMON NORMALS: regular rate RATE: regular rate GI: COMMON NORMALS: Soft to palpation and non-tender PALPATION: Yes Soft to palpation OTHER: No focal TTP. NO guarding rebound, guarding, rigidity. No CVA tenderness to percussion. Neg Thayer/Neg McBurney's point tenderness, no suprabupic tenderness to palpation. Extremity: COMMON NORMALS: full ROM Neuro: SENSORIUM/ORIENTATION: Yes alert MOTOR EXAM: No Abnormal motor strength present and Other motor observations present (no focal motor deficits) Psych: COMMON NORMALS: speech normal SPEECH: Yes normal speech MOOD & AFFECT: Yes euthymic mood Course Vital Signs: Vital signs: Vital Signs Temperature 98.6 F 08/30/21 13:01 Pulse Rate 70 04/09/22 16:24 Respiratory Rate 18 08/30/21 16:24 Blood Pressure 133/69 08/30/21 16:24 Pulse Oximetry 97 08/30/21 16:24 MDM - General Adult Medical Decision Making 75-year-old female with history of CHF, CKD, anemia, hypertension presenting to the emergency room for increasing fatigue and concern for low blood pressure in setting of diarrhea. On exam, patient does not appear to be dry or tachycardic. Blood pressure in the emergency room with multiple readings show normotension. Given multiple complaints including fatigue and diarrhea, will evaluate for with blood work today. She had serial blood pressure readings which were all normotensive. Troponin similar to baseline with delta less than 5. She is noted to be hyponatremic to 133 and hypokalemia to 3.3. I discussed these findings with patient instructed her to take potassium and salt tablets. Creatinine of 1.8 similar to baseline. Patient is not currently anemic. It is unclear what is causing patient's shortness of fatigue and diarrhea. I have given patient a sterile stool cup to collect her samples for C. difficile testing in the future should she need it. Do not suspect ACS, or other emergent pathology for patient's fatigue. Disposition: Discharge. Patient counseled regarding diagnostic impression, treatment plan. Patient given ED strict return precautions to return for continuation, worsening, or development of new symptoms. Instructed to f/u w/ PCP regarding symptoms today. Patient verbalized understanding. Lab Data : 08/30/21 13:30 08/30/21 13:30 Laboratory Results WBC 4.9 10^3/uL (4.0-10.0) 08/30/21 13:30 RBC 3.65 10^6/uL (4.1-5.3) L 08/30/21 13:30 Hgb 11.5 g/dL (11.5-15.3) 08/30/21 13:30 Hct 35.6 % (37.0-47.0) L 08/30/21 13:30 MCV 97.5 fl (81-99) 08/30/21 13:30 MCH 31.5 pg (28.0-34.0) 08/30/21 13:30 MCHC 32.3 g/dL (30.0-36.0) 08/30/21 13:30 RDW 16.0 % (12.1-15.1) H 08/30/21 13:30 Plt Count 159 10^3/cmm (130-400) 08/30/21 13:30 MPV 11.1 fL (7.4-10.4) H 08/30/21 13:30 Neut % (Auto) 78.8 % 08/30/21 13:30 Lymph % (Auto) 9.9 % 08/30/21 13:30 [place] % (Auto) 8.9 % 08/30/21 13:30 Eos % (Auto) 1.6 % 08/30/21 13:30 Baso % (Auto) 0.4 % 08/30/21 13:30 Neut # (Auto) 3.88 10^3/uL (1.8-7.7) 08/30/21 13:30 Lymph # (Auto) 0.5 10^3/uL (0.8-4.8) L 08/30/21 13:30 [place] # (Auto) 0.4 10^3/uL (0.2-0.9) 08/30/21 13:30 Eos # (Auto) 0.1 10^3/uL (0.0-0.8) 08/30/21 13:30 Baso # (Auto) 0.0 10^3/uL (0.0-0.1) 08/30/21 13:30 Nucleated RBC % (auto) 0 % 08/30/21 13:30 Nucleated RBCs # 0.0 /100WBC 08/30/21 13:30 Sodium 133 mmol/L (136-145) L 08/30/21 13:30 Potassium 3.3 mmol/L (3.5-5.1) L 08/30/21 13:30 Chloride 97 mmol/L (98-107) L 08/30/21 13:30 Carbon Dioxide 24 mmol/L (22-29) 08/30/21 13:30 Anion Gap 15.3 (5-19) 08/30/21 13:30 BUN 56 mg/dL (8-23) H 08/30/21 13:30 Creatinine 1.8 mg/dL (0.5-0.9) H 08/30/21 13:30 GFR Calculation Not Reportable 08/30/21 13:30 Glucose 103 mg/dL (65-115) 08/30/21 13:30 Calculated Osmolality 292 mOsm/kg (285-295) 08/30/21 13:30 Calcium 9.4 mg/dL (8.5-10.5) 08/30/21 13:30 Total Bilirubin 0.6 mg/dL (0.15-1.2) 08/30/21 13:30 AST 26 U/L (0-32) 08/30/21 13:30 ALT 19 U/L (0-33) 08/30/21 13:30 Alkaline Phosphatase 193 IU/L (35-105) H 08/30/21 13:30 Troponin T Baseline 40 ng/L (0-10) H 08/30/21 13:30 Troponin T 120 Minute 39.79 ng/L (0-10) H 08/30/21 15:28 Delta Troponin T -0.21 ABS# (0-10) L 08/30/21 15:28 Total Protein 6.5 g/dL (6.6-8.7) L 08/30/21 13:30 Albumin 4.0 g/dL (3.5-5.2) 08/30/21 13:30 Globulin 2.5 g/dL (1.3-4.6) 08/30/21 13:30 Lipase 30 U/L (13-60) 08/30/21 13:30 TSH 1.39 uIU/mL (0.27-4.20) 08/30/21 13:30 Free T4 1.20 ng/dL (0.82-1.77) 08/30/21 13:30 Urine Color Yellow (Yellow) 08/30/21 13:30 Urine Appearance Clear (CLEAR) 08/30/21 13:30 Urine pH 5 (5-7) 08/30/21 13:30 Ur Specific [place] 1.010 (1.005-1.030) 08/30/21 13:30 Urine Protein Neg (Negative) 08/30/21 13:30 Urine Glucose (UA) Norm (Normal) 08/30/21 13:30 Urine Ketones Negative (Negative) 08/30/21 13:30 Urine Blood Neg (Negative) 08/30/21 13:30 Urine Nitrate Negative (Negative) 08/30/21 13:30 Urine Bilirubin Neg (Negative) 08/30/21 13:30 Urine Urobilinogen Norm mg/dL (Negative) 08/30/21 13:30 Ur Leukocyte Esterase Negative (Negative) 08/30/21 13:30 Discharge Plan Discharge Patient Disposition: Home Clinical Impression: Generalized weakness Condition: Stable Prescriptions: No Action allopurinol 100 mg tablet 100 mg PO QAM 0RF ferrous sulfate 325 mg (65 mg iron) tablet 325 mg PO BID 0RF vitamin B complex [B Complex-Vitamin B12] Tablet 1 tab PO QPM 0RF magnesium 250 mg tablet 250 mg PO QPM 0RF pantoprazole 40 mg tablet,delayed release (DR/EC) 40 mg PO DAILY 0RF torsemide 20 mg tablet 20 mg PO BID Qty: 180 3RF metoprolol tartrate 25 mg tablet 12.5 mg PO BID 0RF metolazone 2.5 mg tablet 2.5 mg PO DAILY 0RF acetaminophen 500 mg capsule 500 - 1,000 mg PO Q6H PRN (Reason: Pain) 0RF Hold Instructions: Resume on 04/28/21. clopidogrel 75 mg tablet See Rx Instructions .ROUTE .COMPLEX Qty: 90 3RF Dose Instruction: TAKE 1 TABLET BY MOUTH DAILY Rx Instructions: TAKE 1 TABLET BY MOUTH DAILY pregabalin [Lyrica] 50 mg capsule 50 mg PO BID Qty: 60 5RF gabapentin 300 mg capsule 300 mg PO BID 0RF potassium chloride 20 mEq Tablet Extended Release 20 meq PO DAILY 0RF Discharge Orders: Discharge ED (Routine); Ordered 08/30/21 Ordered By: Renetta Bettencourt Referrals: Janie Agustin MD [Primary Care Provider] - Discharge Diet: Advance as tolerated Discharge Activity: Increase activity as tolerated Activity Restrictions/Additional Instructions: Come back to the emergency room if you have chest pain, fever or chills, worsening shortness of breath, worsening exertional lightheadedness, or any new or concerning complaints. Coding Level of Care Code ED Feeder Tender for Maday Fwpriscila Exam Comprehensive
[2021-08-30 13:51] LABS: Add Urine Microscopic? NO; Charge for UA Resulting for Rev
[2021-08-30 13:52] LABS: Basophils % 0.4 %; Eosinophils # 0.1 10^3/uL (0.0-0.8); Eosinophils % 1.6 %; Hematocrit 35.6 % (37.0-47.0); Hemoglobin 11.5 g/dL (11.5-15.3); Lymphocytes # 0.5 10^3/uL (0.8-4.8); Lymphocytes % 9.9 %; Mean Corpuscular HGB Conc 32.3 g/dL (30.0-36.0); Mean Corpuscular Hemoglobin 31.5 pg (28.0-34.0); Mean Corpuscular Volume 97.5 fl (81-99); Mean Platelet Volume 11.1 fL (7.4-10.4); Monocytes # 0.4 10^3/uL (0.2-0.9); Monocytes % 8.9 %; Neutrophils # 3.88 10^3/uL (1.8-7.7); Neutrophils % 78.8 %; Nucleated Red Blood Cells % 0 %; Platelet Count 159 10^3/cmm (130-400); Red Blood Count 3.65 10^6/uL (4.1-5.3); White Blood Count 4.9 10^3/uL (4.0-10.0)
[2021-08-30 14:05] LABS: Bilirubin Urine Neg (Negative); Blood Urine Neg (Negative); Glucose Urine UA Norm (Normal); Ketones Urine Negative (Negative); Leukocyte Esterase Urine Negative (Negative); Nitrate Urine Negative (Negative); Protein Urine Neg (Negative); Urine Appearance Clear (CLEAR); Urine Color Yellow (Yellow); Urobilinogen Urine Norm (Negative); pH Urine 5 (5-7)
[2021-08-30] MEDS: sodium chloride 0.9% 500 ML IV (14:16)
[2021-08-30 14:30] LABS: Troponin(5th) Baseline 40 ng/L (0-10)
[2021-08-30 14:35] LABS: Alanine Aminotransferase 19 U/L (0-33); Alkaline Phosphatase 193 IU/L (35-105); Anion Gap 15.3 (5-19); Aspartate Amino Transferase 26 U/L (0-32); Blood Urea Nitrogen 56 mg/dL (8-23); Calcium 9.4 mg/dL (8.5-10.5); Carbon Dioxide 24 mmol/L (22-29); Chloride 97 mmol/L (98-107); Globulin 2.5 g/dL (1.3-4.6); Glucose 103 mg/dL (65-115); Lipase 30 U/L (13-60); Osmolality Calculated 292 mOsm/kg (285-295); Potassium 3.3 mmol/L (3.5-5.1); Sodium 133 mmol/L (136-145); Thyroid Stimulating Hormone 1.39 uIU/mL (0.27-4.20); Total Bilirubin 0.6 mg/dL (0.15-1.2); Total Protein 6.5 g/dL (6.6-8.7)
--- NOTE | 2021-08-30 15:37 | ECG_ITS ---
[facility] Test Date: 2021-08-30 Pat Name: Teena Timmons Department: Room: Gender: Female Nurse College: : 1945 Requested By: Renetta Bettencourt Order Number: [id number] Zoe MD: Christiano Max M.D. Measurements Intervals [place] Rate: 73 P: 90 MI: 271 QRS: -87 QRSD: 190 T: 90 QT: 497 QTc: 548 Interpretive Statements ELECTRONIC VENTRICULAR PACEMAKER ABNORMAL RHYTHM ECG Compared to ECG 08/30/2021 13:44:02 No significant changes Electronically Signed On 08-30-2021 19:10:09 CDT by Christiano Max M.D. [id number]
[2021-08-30 15:51] VITALS: BP 125/62; PULSE 82; RESP 18; O2SAT 96
[2021-08-30 16:02] LABS: Troponin 5 2HR 39.79 ng/L (0-10)
[2021-08-30 16:15] LABS: Troponin 5 2HR Delta -0.21 ABS# (0-10)
[2021-08-30 16:24] VITALS: BP 133/69; PULSE 70; RESP 18; O2SAT 97
== END 2021-08-30 16:26 | disposition home or self-care (01) ==
PROVIDERS: Emergency Provider Emergency Medicine; PCP Internal Medicine
DX: R53.1 Weakness (principal); I13.0 Hypertensive heart and chronic kidney disease with heart failure and stage 1 through stage 4 chronic kidney disease, or unspecified chronic kidney disease; N18.9 Chronic kidney disease, unspecified; I50.9 Heart failure, unspecified; D63.1 Anemia in chronic kidney disease; R53.83 Other fatigue; Z87.891 Personal history of nicotine dependence
CPT/HCPCS: 36415; 80053; 81003; 83690; 84439; 84443; 84484; 85025; 93005; 96360; 99284; J7040

== ENCOUNTER 2021-09-30 11:30 | Outpatient (CLI) | payer MEDICARE, OTHER, SELFPAY ==
[2021-09-30 12:03] LABS: Basophils % 0.6 %; Eosinophils # 0.2 10^3/uL (0.0-0.8); Hematocrit 32.2 % (37.0-47.0); Hemoglobin 10.2 g/dL (11.5-15.3); Lymphocytes # 0.6 10^3/uL (0.8-4.8); Mean Corpuscular HGB Conc 31.7 g/dL (30.0-36.0); Mean Corpuscular Hemoglobin 32.4 pg (28.0-34.0); Mean Corpuscular Volume 102.2 fl (81-99); Mean Platelet Volume 11.1 fL (7.4-10.4); Monocytes # 0.4 10^3/uL (0.2-0.9); Monocytes % 8.3 %; Neutrophils # 3.73 10^3/uL (1.8-7.7); Neutrophils % 75.7 %; Nucleated Red Blood Cells % 0 %; Platelet Count 214 10^3/cmm (130-400); Red Blood Count 3.15 10^6/uL (4.1-5.3); Red Cell Distribution Width 15.3 % (12.1-15.1); White Blood Count 4.9 10^3/uL (4.0-10.0)
[2021-09-30 12:29] LABS: Anion Gap 16.7 (5-19); Blood Urea Nitrogen 54 mg/dL (8-23); Calcium 9.2 mg/dL (8.5-10.5); Carbon Dioxide 22 mmol/L (22-29); Chloride 103 mmol/L (98-107); Glucose 91 mg/dL (65-115); Osmolality Calculated 300 mOsm/kg (285-295); Potassium 3.7 mmol/L (3.5-5.1); Sodium 138 mmol/L (136-145)
[2021-09-30 12:37] LABS: Calcium 9.2 mg/dL (8.5-10.5)
[2021-09-30 12:44] LABS: Parathyroid Hormone 167.8 pg/mL (15-65)
[2021-09-30 12:46] LABS: 25 Hydroxy Vitamin D 31 ng/mL (30-100)
[2021-09-30 13:49] LABS: Creatinine Urine, Random 58 mg/dL (28-217); Microalbum Creatinine Ratio Ur 17 mg/dL (0-20); Microalbumin Random Urine 1 ug/dL (0-20)
== END 2021-09-30 11:31 | disposition home or self-care (01) ==
PROVIDERS: PCP Internal Medicine; Visit Provider Registered Nurse
DX: N18.4 Chronic kidney disease, stage 4 (severe) (principal)
CPT/HCPCS: 80048; 82044; 82306; 82310; 83970; 85025

== ENCOUNTER 2021-11-07 17:25 | Emergency (ER) | payer MEDICARE, OTHER, SELFPAY ==
[2021-11-07 17:48] VITALS: BP 124/62; PULSE 73; RESP 16; TEMP 36.6; O2SAT 98; BMI 29.8
--- NOTE | 2021-11-07 17:56 | XRR_ITS ---
PROCEDURE INFORMATION: Exam: XR Abdomen Exam date and time: 11/07/2021 6:07 PM Age: 75 years old Clinical indication: Abdominal pain; Additional info: Abd pain TECHNIQUE: Imaging protocol: Radiologic exam of the abdomen. Views: Frontal supine view of the abdomen. 1 View. COMPARISON: [place] [id number] 01/15/2021 6:09 PM FINDINGS: Gastrointestinal tract: Increased fecal content in the colon. Nonobstructive bowel gas pattern. Intraperitoneal space: No free intraperitoneal air. Organs: No organomegaly. Vasculature: Atherosclerotic changes in the visualized arteries. Bones/joints: Degenerative changes in the spine and hips. XR/XR KUB [id number] IMPRESSION: 1. Nonobstructed bowel gas pattern. 2. Increased fecal content in the colon. 3. Incidental/nonacute findings are listed in the report.
--- NOTE | 2021-11-07 18:37 | PC.NURSE ---
AMB PT TO BATHROOM WAS UNABLE TO URINATE. CLEANED BED FOR INCONTINENCE OF STOOL.
--- NOTE | 2021-11-07 18:44 | ED_ITS ---
HPI - Abdominal Pain General: Chief Complaint: Abdominal Pain Stated Complaint: lower abdominal pain Time Seen by Provider: 11/07/21 17:55 Source: patient History of Present Illness: 75-year-old female here with 4 days of constipation. She notes pain around a near her rectum, with leakage of liquid stool surrounding that area that she has not been able to control. She has tried a stool softener, Metamucil, laxative, and a suppository without relief. She denies any fever or vomiting. MD elicited complaint: abdominal pain Pertinent past history: constipation Onset (ago): day(s) Pain Consistency: intermittent Location: Pelvis and Other (Rectum) Severity: moderate Quality: sharp Radiation: none Migration to: no migration Exacerbating factors: nothing Relieving factors: nothing Associated Symptoms: Reports bloating, change in bowel habits, change in stool character, dysuria, fecal incontinence and nausea; Denies coffee ground emesis, fever(s), hematuria and vomiting Review of Systems Const: Denies: fever(s) Card: Denies: chest pain Resp: Denies: dyspnea GI: Reports: nausea, bloating, fecal incontinence, change in bowel habits and change in stool character; Denies: vomiting or coffee ground emesis : Reports: dysuria; Denies: hematuria Neuro: Denies: confusion PFSH ED PFSH: Medical History Acute kidney injury superimposed on chronic kidney disease Acute on chronic anemia Acute on chronic systolic heart failure Acute renal failure Alcoholism in recovery Anemia Atrial fibrillation Breast CA Breast cancer Cardiac resynchronization therapy 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 Cardiomyopathy Carotid stenosis, bilateral CHF (congestive heart failure) Chronic kidney disease Chronic systolic heart failure CKD (chronic kidney disease) Claudication Confusion COPD (chronic obstructive pulmonary disease) CVA (cerebral vascular accident) DJD (degenerative joint disease), lumbar History of gastric ulcer HTN (hypertension) Hypotension ICD (implantable cardioverter-defibrillator) in place Mitral regurgitation Non-ischemic cardiomyopathy Occult blood positive stool Orthostatic dizziness VALE on CPAP Peripheral arterial disease Peripheral vascular disease Pneumonia Presence of Watchman left atrial appendage closure device PUD (peptic ulcer disease) PVCs (premature ventricular contractions) Surgical History History of cardiac radiofrequency ablation History of resection of meningioma Previous back surgery S/P cataract extraction S/P lumpectomy of breast Family History Sister Cancer Social History Smoking and tobacco status: former smoker Alcohol intake: former Other details last alcohol use: recovering alcoholic Household members: spouse Marital status: Physical Exam Const: GENERAL APPEARANCE: cooperative; not ill appearing ORIENTATION/CONSCIOUSNESS: Yes awake and Yes oriented to person HENMT: COMMON NORMALS: normocephalic, atraumatic and Normal external nose present HEAD & SCALP: normocephalic and atraumatic NOSE: Normal external nose present Eye: COMMON NORMALS: Equal, round and reactive pupils present and EOMs intact bilaterally PUPIL: Yes Equal, round and reactive pupils present Neck/C-Spine: GENERAL: Yes trachea midline Chest: CHEST: Yes Symmetrical chest wall rise Resp: COMMON NORMALS: normal respiratory effort, No use of accessory muscles and clear to auscultation bilaterally AUSCULTATION: clear to auscultation bilaterally Cardio: COMMON NORMALS: regular rate and regular rhythm RATE: regular rate RHYTHM: regular rhythm GI: COMMON NORMALS: Soft to palpation and non-tender INSPECTION: Yes abdominal distension PALPATION: Yes Soft to palpation Extremity: COMMON NORMALS: normal to inspection Neuro: COREY COMA SCALE: document GCS findings Corey coma scale eye opening: Spontaneous Corey coma scale verbal response: Orientated Corey coma scale motor response: Obey commands Corey coma scale total score: 15 SENSORIUM/ORIENTATION: Yes oriented to person Procedures Rectal Disimpaction Time out performed rectal disimpaction: No Indication: fecal impaction Procedural Sedation: No Sedation/Analgesia: none Technique: manual disimpaction with gloved finger Result: significant stool output Patient Tolerated Procedure: well and no complications Complications: none Course Vital Signs: Vital signs: Vital Signs Temperature 97.9 F 11/07/21 17:48 Pulse Rate 69 11/07/21 21:28 Respiratory Rate 16 11/07/21 21:28 Blood Pressure 134/61 11/07/21 21:28 Pulse Oximetry 99 11/07/21 21:28 MDM - Abdominal Pain Medical Decision Making Patient manually disimpacted with good results. Creatinine is 1.8, which is essentially her baseline. Other laboratory is benign. KUB did not show an obst ructive pattern. She will be sent home with magnesium citrate for continued relief. Urinalysis is negative. Lab Data : 11/07/21 18:20 11/07/21 18:20 Labs/Radiology: Radiology Impressions KUB X-Ray 11/07/21 17:56 IMPRESSION: 1. Nonobstructed bowel gas pattern. 2. Increased fecal content in the colon. 3. Incidental/nonacute findings are listed in the report. Laboratory Results WBC 8.2 10^3/uL (4.0-10.0) 11/07/21 18:20 RBC 3.73 10^6/uL (4.1-5.3) L 11/07/21 18:20 Hgb 11.5 g/dL (11.5-15.3) 11/07/21 18:20 Hct 35.4 % (37.0-47.0) L 11/07/21 18:20 MCV 94.9 fl (81-99) 11/07/21 18:20 MCH 30.8 pg (28.0-34.0) 11/07/21 18:20 MCHC 32.5 g/dL (30.0-36.0) 11/07/21 18:20 RDW 14.0 % (12.1-15.1) 11/07/21 18:20 Plt Count 251 10^3/cmm (130-400) 11/07/21 18:20 MPV 11.4 fL (7.4-10.4) H 11/07/21 18:20 Neut % (Auto) 78.3 % 11/07/21 18:20 Lymph % (Auto) 10.2 % 11/07/21 18:20 [place] % (Auto) 7.5 % 11/07/21 18:20 Eos % (Auto) 3.3 % 11/07/21 18:20 Baso % (Auto) 0.5 % 11/07/21 18:20 Neut # (Auto) 6.45 10^3/uL (1.8-7.7) 11/07/21 18:20 Lymph # (Auto) 0.8 10^3/uL (0.8-4.8) 11/07/21 18:20 [place] # (Auto) 0.6 10^3/uL (0.2-0.9) 11/07/21 18:20 Eos # (Auto) 0.3 10^3/uL (0.0-0.8) 11/07/21 18:20 Baso # (Auto) 0.0 10^3/uL (0.0-0.1) 11/07/21 18:20 Nucleated RBC % (auto) 0 % 11/07/21 18:20 Nucleated RBCs # 0.0 /100WBC 11/07/21 18:20 Sodium 137 mmol/L (136-145) 11/07/21 18:20 Potassium 3.5 mmol/L (3.5-5.1) 11/07/21 18:20 Chloride 95 mmol/L (98-107) L 11/07/21 18:20 Carbon Dioxide 27 mmol/L (22-29) 11/07/21 18:20 Anion Gap 18.5 (5-19) 11/07/21 18:20 BUN 66 mg/dL (8-23) H 11/07/21 18:20 Creatinine 1.8 mg/dL (0.5-0.9) H 11/07/21 18:20 GFR Calculation Not Reportable 11/07/21 18:20 Glucose 99 mg/dL (65-115) 11/07/21 18:20 Calculated Osmolality 303 mOsm/kg (285-295) H 11/07/21 18:20 Calcium 9.3 mg/dL (8.5-10.5) 11/07/21 18:20 Total Bilirubin 0.4 mg/dL (0.15-1.2) 11/07/21 18:20 AST 17 U/L (0-32) 11/07/21 18:20 ALT 12 U/L (0-33) 11/07/21 18:20 Alkaline Phosphatase 174 IU/L (35-105) H 11/07/21 18:20 C-Reactive Protein 7.5 mg/L (0.0-4.9) H 11/07/21 18:20 Total Protein 7.1 g/dL (6.6-8.7) 11/07/21 18:20 Albumin 4.3 g/dL (3.5-5.2) 11/07/21 18:20 Globulin 2.8 g/dL (1.3-4.6) 11/07/21 18:20 Lipase 38 U/L (13-60) 11/07/21 18:20 Urine Color Yellow (Yellow) 11/07/21 20:30 Urine Appearance Clear (CLEAR) 11/07/21 20:30 Urine pH 6.5 (5-7) 11/07/21 20:30 Ur Specific [place] 1.010 (1.005-1.030) 11/07/21 20:30 Urine Protein Neg (Negative) 11/07/21 20:30 Urine Glucose (UA) Norm (Normal) 11/07/21 20:30 Urine Ketones Negative (Negative) 11/07/21 20:30 Urine Blood Neg (Negative) 11/07/21 20:30 Urine Nitrate Negative (Negative) 11/07/21 20:30 Urine Bilirubin Neg (Negative) 11/07/21 20:30 Urine Urobilinogen Norm mg/dL (Negative) 11/07/21 20:30 Ur Leukocyte Esterase Negative (Negative) 11/07/21 20:30 Discharge Plan Discharge Patient Disposition: Home Clinical Impression: Fecal impaction in rectum Condition: Stable Prescriptions: No Action allopurinol 100 mg tablet 100 mg PO QAM 0RF ferrous sulfate 325 mg (65 mg iron) tablet 325 mg PO BID 0RF magnesium 250 mg tablet 250 mg PO QPM 0RF pantoprazole 40 mg tablet,delayed release (DR/EC) 40 mg PO DAILY 0RF torsemide 20 mg tablet 20 mg PO BID Qty: 180 3RF metoprolol tartrate 25 mg tablet 12.5 mg PO BID 0RF acetaminophen 500 mg capsule 500 - 1,000 mg PO Q6H PRN (Reason: Pain) 0RF Hold Instructions: Resume on 04/28/21. pregabalin [Lyrica] 50 mg capsule 50 mg PO BID Qty: 60 5RF potassium chloride 20 mEq Tablet Extended Release 20 meq PO DAILY 0RF fluocinonide 0.05 % solution 1 applic TOPICAL BID PRN (Reason: Itching) 0RF clopidogrel 75 mg tablet 75 mg PO DAILY 0RF Discharge Orders: Discharge ED (Routine); Ordered 11/07/21 Ordered By: Rosendo Adam Referrals: Janie Agustin MD [Primary Care Provider] - 1-3 days Patient Instructions: Fecal Impaction (ED) Activity Restrictions/Additional Instructions: Take the medication you were dispensed for home. Return for significant blood in the stool, inability to have bowel movements, worsening belly pain, fever greater than 100, vomiting liquids or medications, any other concerning symptoms. Coding Level of Care Code ED Desktop Support Technician for Chg 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
[2021-11-07 18:45] LABS: Basophils % 0.5 %; Eosinophils # 0.3 10^3/uL (0.0-0.8); Eosinophils % 3.3 %; Hematocrit 35.4 % (37.0-47.0); Hemoglobin 11.5 g/dL (11.5-15.3); Lymphocytes # 0.8 10^3/uL (0.8-4.8); Lymphocytes % 10.2 %; Mean Corpuscular HGB Conc 32.5 g/dL (30.0-36.0); Mean Corpuscular Hemoglobin 30.8 pg (28.0-34.0); Mean Corpuscular Volume 94.9 fl (81-99); Mean Platelet Volume 11.4 fL (7.4-10.4); Monocytes # 0.6 10^3/uL (0.2-0.9); Monocytes % 7.5 %; Neutrophils # 6.45 10^3/uL (1.8-7.7); Neutrophils % 78.3 %; Nucleated Red Blood Cells % 0 %; Platelet Count 251 10^3/cmm (130-400); Red Blood Count 3.73 10^6/uL (4.1-5.3); White Blood Count 8.2 10^3/uL (4.0-10.0)
--- NOTE | 2021-11-07 19:03 | PC.NURSE ---
REPORT GIVEN TO JOBY Haskins RN ASSUMED CARE.
[2021-11-07 19:06] LABS: Alanine Aminotransferase 12 U/L (0-33); Albumin Level 4.3 g/dL (3.5-5.2); Alkaline Phosphatase 174 IU/L (35-105); Anion Gap 18.5 (5-19); Aspartate Amino Transferase 17 U/L (0-32); Blood Urea Nitrogen 66 mg/dL (8-23); C Reactive Protein 7.5 mg/L (0.0-4.9); Calcium 9.3 mg/dL (8.5-10.5); Carbon Dioxide 27 mmol/L (22-29); Chloride 95 mmol/L (98-107); Globulin 2.8 g/dL (1.3-4.6); Glucose 99 mg/dL (65-115); Lipase 38 U/L (13-60); Osmolality Calculated 303 mOsm/kg (285-295); Potassium 3.5 mmol/L (3.5-5.1); Sodium 137 mmol/L (136-145); Total Bilirubin 0.4 mg/dL (0.15-1.2); Total Protein 7.1 g/dL (6.6-8.7)
[2021-11-07 19:22] VITALS: BP 121/64; PULSE 73; RESP 16; O2SAT 99
[2021-11-07 20:37] VITALS: BP 122/63; PULSE 70; RESP 18; O2SAT 98
[2021-11-07 20:47] LABS: Add Urine Microscopic? NO; Charge for UA Resulting for Rev
[2021-11-07 20:54] LABS: Bilirubin Urine Neg (Negative); Blood Urine Neg (Negative); Glucose Urine UA Norm (Normal); Ketones Urine Negative (Negative); Leukocyte Esterase Urine Negative (Negative); Nitrate Urine Negative (Negative); Protein Urine Neg (Negative); Urine Appearance Clear (CLEAR); Urine Color Yellow (Yellow); Urobilinogen Urine Norm (Negative); pH Urine 6.5 (5-7)
[2021-11-07 21:00] VITALS: BP 134/61; PULSE 69; RESP 16; O2SAT 99
[2021-11-07] MEDS: magnesium citrate Btl 296 mL PO (21:24)
[2021-11-07 21:28] VITALS: BP 134/61; PULSE 69; RESP 16; O2SAT 99
== END 2021-11-07 21:34 | disposition home or self-care (01) ==
PROVIDERS: Emergency Medicine; Emergency Provider Emergency Medicine; PCP Internal Medicine
DX: K56.41 Fecal impaction (principal)
CPT/HCPCS: 74018; 80053; 81003; 83690; 85025; 86140; 99283

== ENCOUNTER 2021-11-21 15:19 | Outpatient (CLI) | payer MEDICARE, OTHER, SELFPAY ==
--- NOTE | 2021-11-21 15:37 | XR_ITS ---
WS: [id number] XR knee LT 3V* [id number] REASON FOR EXAM: KNEE PAIN LEFT FINDINGS: No fracture or focal bone lesion. Small caliber vascular stent at the metadiaphyseal junction of the tibia. Mild narrowing with subchondral sclerosis in the medial and lateral knee joint spaces unchanged roque red to 01/15/2021. Moderate narrowing of the patellofemoral joint space with subchondral sclerosis and marginal osteophy tosis of the patella which is progressive compared to previous examination of 01/15/2021. No other significant interval change or new finding. 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
== END 2021-11-21 15:20 | disposition home or self-care (01) ==
LOC: RAD 15:26
PROVIDERS: PCP Internal Medicine; Visit Provider Nurse Practitioner Family
DX: M17.12 Unilateral primary osteoarthritis, left knee (principal)
CPT/HCPCS: 73562

== ENCOUNTER → 2021-12-23 08:47 | Outpatient (BNVA) | payer MEDICARE, OTHER, SELFPAY | PROVIDERS: PCP Internal Medicine; Referring Provider Nurse Practitioner Family; Visit Provider Orthopaedic Surgery | DX: M17.12 Unilateral primary osteoarthritis, left knee (principal) | CPT/HCPCS: 99203 ==

== ENCOUNTER 2022-01-30 13:26 | Outpatient (CLI) | payer MEDICARE, OTHER, SELFPAY ==
[2022-01-30 15:22] LABS: Alanine Aminotransferase 12 U/L (0-33); Albumin Level 3.8 g/dL (3.5-5.2); Alkaline Phosphatase 142 U/L (35-105); Anion Gap 16.2 (5-19); Aspartate Amino Transferase 20 U/L (0-32); Blood Urea Nitrogen 59 mg/dL (8-23); Calcium 8.9 mg/dL (8.5-10.5); Carbon Dioxide 29 mmol/L (22-29); Chloride 84 mmol/L (98-107); Globulin 2.9 g/dL (1.3-4.6); Glucose 86 mg/dL (65-115); NT Pro B Type Natriuretic Pept 2934 pg/mL (0-450); Osmolality Calculated 278 mOsm/kg (285-295); Potassium 3.2 mmol/L (3.5-5.1); Sodium 126 mmol/L (136-145); Total Bilirubin 0.4 mg/dL (0.15-1.2); Total Protein 6.7 g/dL (6.6-8.7)
== END 2022-01-30 13:27 | disposition home or self-care (01) ==
LOC: LAB 13:29
PROVIDERS: PCP Internal Medicine; Visit Provider Nurse Practitioner Adult Health
DX: I50.22 Chronic systolic (congestive) heart failure (principal)
CPT/HCPCS: 80053; 83880

== ENCOUNTER 2022-02-16 14:22 | Outpatient (CLI) | payer MEDICARE, OTHER, SELFPAY ==
[2022-02-16 15:26] LABS: Anion Gap 12.9 (5-19); Blood Urea Nitrogen 46 mg/dL (8-23); Calcium 9.4 mg/dL (8.5-10.5); Carbon Dioxide 27 mmol/L (22-29); Chloride 106 mmol/L (98-107); Glucose 92 mg/dL (65-115); NT Pro B Type Natriuretic Pept 7607 pg/mL (0-450); Osmolality Calculated 306 mOsm/kg (285-295); Potassium 3.9 mmol/L (3.5-5.1); Sodium 142 mmol/L (136-145)
== END 2022-02-16 14:23 | disposition home or self-care (01) ==
LOC: LAB 14:25
PROVIDERS: PCP Internal Medicine; Visit Provider Nurse Practitioner Adult Health
DX: I50.22 Chronic systolic (congestive) heart failure (principal)
CPT/HCPCS: 36415; 80048; 83880

== ENCOUNTER 2022-03-03 06:00 | Outpatient (RCR) | payer MEDICARE, OTHER, SELFPAY | END 2022-03-23 23:59 | disposition home or self-care (01) | LOC: SPT 06:00 | PROVIDERS: PCP Internal Medicine; Visit Provider Internal Medicine | DX: R26.89 Other abnormalities of gait and mobility (principal) | CPT/HCPCS: 97110; 97116; 97161 ==

== ENCOUNTER 2022-03-24 06:00 | Outpatient (RCR) | payer MEDICARE, OTHER, SELFPAY | END 2022-04-22 23:59 | disposition home or self-care (01) | LOC: SPT 06:00 | PROVIDERS: PCP Internal Medicine; Visit Provider Internal Medicine | DX: R26.89 Other abnormalities of gait and mobility (principal) | CPT/HCPCS: 97110; 97116 ==

== ENCOUNTER 2022-03-30 13:40 | Outpatient (CLI) | payer MEDICARE, OTHER, SELFPAY ==
[2022-03-30 14:37] LABS: Basophils % 0.4 %; Eosinophils # 0.1 10^3/uL (0.0-0.8); Eosinophils % 2.3 %; Hematocrit 40.6 % (37.0-47.0); Hemoglobin 12.8 g/dL (11.5-15.3); Lymphocytes # 0.7 10^3/uL (0.8-4.8); Lymphocytes % 14.1 %; Mean Corpuscular HGB Conc 31.5 g/dL (30.0-36.0); Mean Corpuscular Hemoglobin 31.1 pg (28.0-34.0); Mean Corpuscular Volume 98.5 fl (81-99); Monocytes # 0.4 10^3/uL (0.2-0.9); Monocytes % 8.6 %; Neutrophils % 74.4 %; Nucleated Red Blood Cells % 0 %; Platelet Count 203 10^3/cmm (130-400); Red Blood Count 4.12 10^6/uL (4.1-5.3); Red Cell Distribution Width 14.6 % (12.1-15.1); White Blood Count 5.1 10^3/uL (4.0-10.0)
[2022-03-30 14:54] LABS: Calcium 9.4 mg/dL (8.5-10.5)
[2022-03-30 14:55] LABS: Albumin Level 3.7 g/dL (3.5-5.2); Anion Gap 14.7 (5-19); Blood Urea Nitrogen 59 mg/dL (8-23); Calcium 9.1 mg/dL (8.5-10.5); Carbon Dioxide 24 mmol/L (22-29); Chloride 103 mmol/L (98-107); Glucose 87 mg/dL (65-115); Phosphorus 4.1 mg/dL (2.5-4.5); Potassium 3.7 mmol/L (3.5-5.1); Sodium 138 mmol/L (136-145)
[2022-03-30 14:56] LABS: Creatinine Urine, Random 51 mg/dL (28-217); Microalbum Creatinine Ratio Ur 20 mg/dL (0-20); Microalbumin Random Urine 1 ug/dL (0-20)
[2022-03-30 15:49] LABS: Parathyroid Hormone 158.2 pg/mL (15-65)
== END 2022-03-30 13:41 | disposition home or self-care (01) ==
LOC: LAB 13:49
PROVIDERS: PCP Internal Medicine; Visit Provider Internal Medicine Nephrology
DX: N18.32 Chronic kidney disease, stage 3b (principal)
CPT/HCPCS: 80069; 82044; 82310; 83970; 85025

== ENCOUNTER 2022-04-17 14:56 | Outpatient (CLI) | payer MEDICARE, OTHER, SELFPAY ==
[2022-04-17 16:36] LABS: Anion Gap 14.3 (5-19); Blood Urea Nitrogen 51 mg/dL (8-23); Calcium 9.3 mg/dL (8.5-10.5); Carbon Dioxide 28 mmol/L (22-29); Chloride 99 mmol/L (98-107); Glucose 108 mg/dL (65-115); Osmolality Calculated 298 mOsm/kg (285-295); Potassium 4.3 mmol/L (3.5-5.1); Sodium 137 mmol/L (136-145)
== END 2022-04-17 14:57 | disposition home or self-care (01) ==
PROVIDERS: PCP Internal Medicine; Referring Provider Nurse Practitioner Adult Health; Visit Provider Nurse Practitioner Family
DX: N18.4 Chronic kidney disease, stage 4 (severe) (principal)
CPT/HCPCS: 36415; 80048

== ENCOUNTER 2022-04-23 06:00 | Outpatient (RCR) | payer MEDICARE, OTHER, SELFPAY | END 2022-05-23 23:59 | disposition home or self-care (01) | LOC: SPT 06:00 | PROVIDERS: PCP Internal Medicine; Visit Provider Internal Medicine | DX: R26.89 Other abnormalities of gait and mobility (principal) | CPT/HCPCS: 97110 ==

== ENCOUNTER 2022-05-01 14:12 | Outpatient (CLI) | payer MEDICARE, OTHER, SELFPAY ==
[2022-05-01 15:05] LABS: Anion Gap 16.9 (5-19); Blood Urea Nitrogen 51 mg/dL (8-23); Calcium 9.3 mg/dL (8.5-10.5); Carbon Dioxide 24 mmol/L (22-29); Chloride 103 mmol/L (98-107); Glucose 111 mg/dL (65-115); NT Pro B Type Natriuretic Pept 4830 pg/mL (0-450); Osmolality Calculated 304 mOsm/kg (285-295); Potassium 3.9 mmol/L (3.5-5.1); Sodium 140 mmol/L (136-145)
== END 2022-05-01 14:13 | disposition home or self-care (01) ==
LOC: LAB 14:13
PROVIDERS: PCP Internal Medicine; Visit Provider Nurse Practitioner Adult Health
DX: I50.22 Chronic systolic (congestive) heart failure (principal)
CPT/HCPCS: 36415; 80048; 83880

== ENCOUNTER 2022-06-11 13:48 | Outpatient (CLI) | payer MEDICARE, OTHER, SELFPAY ==
[2022-06-11 14:24] LABS: Basophils % 0.5 %; Eosinophils # 0.1 10^3/uL (0.0-0.8); Eosinophils % 2.3 %; Hemoglobin 14.8 g/dL (11.5-15.3); Lymphocytes # 0.8 10^3/uL (0.8-4.8); Lymphocytes % 13.7 %; Mean Corpuscular HGB Conc 31.5 g/dL (30.0-36.0); Mean Corpuscular Hemoglobin 30.3 pg (28.0-34.0); Mean Corpuscular Volume 96.1 fl (81-99); Mean Platelet Volume 11.5 fL (7.4-10.4); Monocytes # 0.5 10^3/uL (0.2-0.9); Monocytes % 7.8 %; Neutrophils # 4.62 10^3/uL (1.8-7.7); Neutrophils % 75.4 %; Nucleated Red Blood Cells % 0 %; Platelet Count 204 10^3/cmm (130-400); Red Blood Count 4.89 10^6/uL (4.1-5.3); Red Cell Distribution Width 15.7 % (12.1-15.1); White Blood Count 6.1 10^3/uL (4.0-10.0)
[2022-06-11 14:42] LABS: Albumin Level 3.9 g/dL (3.5-5.2); Blood Urea Nitrogen 35 mg/dL (8-23); Calcium 8.9 mg/dL (8.5-10.5); Carbon Dioxide 22 mmol/L (22-29); Chloride 103 mmol/L (98-107); Glucose 126 mg/dL (65-115); Phosphorus 3.7 mg/dL (2.5-4.5); Sodium 138 mmol/L (136-145)
[2022-06-11 14:52] LABS: Creatinine Urine, Random 60 mg/dL (28-217); Microalbum Creatinine Ratio Ur 67 mg/dL (0-20); Microalbumin Random Urine 4 ug/dL (0-20)
[2022-06-11 15:05] LABS: Calcium 9.8 mg/dL (8.5-10.5)
[2022-06-11 15:09] LABS: Parathyroid Hormone 219.9 pg/mL (15-65)
== END 2022-06-11 13:49 | disposition home or self-care (01) ==
LOC: LAB 13:52
PROVIDERS: PCP Internal Medicine; Visit Provider Nurse Practitioner Family
DX: N18.4 Chronic kidney disease, stage 4 (severe) (principal)
CPT/HCPCS: 36415; 80069; 82044; 82310; 83970; 85025

== ENCOUNTER 2022-06-11 13:54 | Outpatient (CLI) | payer MEDICARE, OTHER, SELFPAY ==
[2022-06-11 14:53] LABS: Blood Urea Nitrogen 35 mg/dL (8-23); Calcium 9.1 mg/dL (8.5-10.5); Carbon Dioxide 22 mmol/L (22-29); Chloride 104 mmol/L (98-107); Glucose 129 mg/dL (65-115); NT Pro B Type Natriuretic Pept 6764 pg/mL (0-450); Osmolality Calculated 300 mOsm/kg (285-295); Sodium 140 mmol/L (136-145)
== END 2022-06-11 13:55 | disposition home or self-care (01) ==
LOC: LAB 13:55
PROVIDERS: PCP Internal Medicine; Visit Provider Nurse Practitioner Adult Health
DX: I50.22 Chronic systolic (congestive) heart failure (principal)
CPT/HCPCS: 36415; 80048; 83880

== ENCOUNTER 2022-06-25 22:57 | Inpatient (IN) | payer MEDICARE, OTHER, SELFPAY ==
--- NOTE | 2022-06-25 23:01 | XRR_ITS ---
PROCEDURE INFORMATION: Exam: XR Chest Exam date and time: 06/25/2022 11:08 PM Age: 76 years old Clinical indication: Cough and shortness of breath; Prior surgery; Additional info: Cough, SOB TECHNIQUE: Imaging protocol: Radiologic exam of the chest. Views: 1 view. COMPARISON: CR XR chest 1V portable [id number] 04/28/2021 6:51 PM FINDINGS: Tubes, catheters and devices: A sequential bipolar pacemaker is placed via the left subclavian vein. Lungs: There is mild peribronchial cuffing present and some increased interstitial and strandy opacities are seen in the right lower hemithorax, findings that may represent mild bilateral bronchitis and right basilar pneumonitis or atelectasis. Pleural spaces: Unremarkable. No pleural effusion. No pneumothorax. Heart/Mediastinum: The cardiac silhouette is prominent but stable compared with 04/28/2021. Bones/joints: Unremarkable. XR/XR chest 1V portable [id number] IMPRESSION: 1. Mild peribronchial cuffing and increased interstitial and strandy opacities are seen in the right lower hemithorax, findings that could represent bilateral bronchitis and right basilar pneumonitis or atelectasis. 2. Stable cardiomegaly
[2022-06-25 23:03] VITALS: BP 120/70; PULSE 68; RESP 16; TEMP 37.8; O2SAT 94; BMI 32.3
--- NOTE | 2022-06-25 23:07 | W.ED.SOB ---
HPI - SOB/Dyspnea General: Chief Complaint: Shortness of Breath/Dyspnea Stated Complaint: SOB Time Seen by Provider: 06/25/22 22:58 Source: patient and EMS Mode of arrival: EMS Limitations: no limitations History of Present Illness: HPI Narrative: 76-year-old female with a history of congestive heart failure states that over the last 2 days she has been having increasing shortness of breath along with productive cough and a fever EMS states her fever was 101 states has been out of power and has not been able to use her BiPAP she does not wear oxygen at home she denies any pain anywhere denies any known sick contacts she did see her PCP today and was started on antibiotics. Associated symptoms: Reports fever(s); Deny abdominal pain, chest pain, nausea or vomiting Review of Systems Const: Reports: fever(s) and chills Eyes: Denies: blurry vision or eye discomfort ENMT: Denies: throat pain or dental pain Card: Denies: chest pain Resp: Reports: dyspnea and productive cough GI: Denies: abdominal pain, nausea, vomiting or diarrhea : Denies: dysuria Musc: Denies: neck pain or back pain Skin/Breast: Denies: rash Neuro: Denies: headache(s) Psych: Denies: depression Yovanny/Lymph: Denies: easy bruising All/Imm: Denies: urticaria PFSH ED PFSH: Medical History Acute kidney injury superimposed on chronic kidney disease Acute on chronic anemia Acute on chronic systolic heart failure Acute renal failure Alcoholism in recovery Anemia Atrial fibrillation Breast CA Breast cancer Cardiac resynchronization therapy defibrillator (DIRECTOR WHOLESALE-D) in place Cardiomyopathy Carotid stenosis, bilateral CHF (congestive heart failure) Chronic kidney disease Chronic systolic heart failure CKD (chronic kidney disease) Claudication Confusion COPD (chronic obstructive pulmonary disease) CVA (cerebral vascular accident) DJD (degenerative joint disease), lumbar History of gastric ulcer HTN (hypertension) Hypotension ICD (implantable cardioverter-defibrillator) in place Mitral regurgitation Non-ischemic cardiomyopathy Occult blood positive stool Orthostatic dizziness VALE on CPAP Peripheral arterial disease Peripheral vascular disease Pneumonia Presence of Watchman left atrial appendage closure device PUD (peptic ulcer disease) PVCs (premature ventricular contractions) Surgical History History of cardiac radiofrequency ablation History of resection of meningioma Previous back surgery S/P cataract extraction S/P lumpectomy of breast Family History Sister Cancer Social History Smoking and tobacco status: former smoker Alcohol intake: former Other details last alcohol use: recovering alcoholic Household members: spouse Marital status: Physical Exam Const: COMMON NORMALS: patient oriented x3 GENERAL APPEARANCE: ill appearing HENMT: COMMON NORMALS: normocephalic and atraumatic HEAD & SCALP: normocephalic and atraumatic Eye: COMMON NORMALS: Equal, round and reactive pupils present and EOMs intact bilaterally PUPIL: Yes Equal, round and reactive pupils present Neck/C-Spine: COMMON NORMALS: full ROM and supple Chest: COMMONS NORMALS: normal inspection of the chest and normal palpation of entire chest wall Resp: COMMON NORMALS: No retractions and No use of accessory muscles AUSCULTATION: rales Cardio: COMMON NORMALS: regular rate, regular rhythm and No murmurs present (Cardio) RATE: regular rate RHYTHM: regular rhythm GI: COMMON NORMALS: Normal to inspection, nondistended, normoactive bowel sounds present, Soft to palpation, non-tender and no masses PALPATION: Yes Soft to palpation Extremity: COMMON NORMALS: normal to inspection and full ROM Neuro: COMMON NORMALS: patient oriented x3, moves all extremities and no focal motor deficits Psych: COMMON NORMALS: mental status grossly normal, Normal thought process present and cooperative THOUGHT PROCESS: Normal thought process present Skin: COMMON NORMALS: no rashes or lesions noted and no wounds GENERAL SKIN EXAM: no rashes or lesions noted Course Vital Signs: Vital signs: Vital Signs Temperature 100.1 F H 06/25/22 23:03 Pulse Rate 74 06/26/22 00:08 Respiratory Rate 19 H 06/26/22 00:08 Blood Pressure 115/47 06/26/22 00:08 Pulse Oximetry 93 06/26/22 00:08 Oxygen Delivery Me thod 06/26/22 00:08 MDM - SOB/Dyspnea Medical Decision Making Patient presents here with cough fever and shortness of breath x-ray shows a right lower lobe pneumonia she is requiring 2 L of oxygen here BNP is mildly elevated she is in no severe distress will admit on IV antibiotics along with diuresis. Lab Data 06/25/22 23:22 06/25/22 23:22 Labs/Radiology: Radiology Impressions Chest X-Ray 06/25/22 23: IMPRESSION: 1. Mild peribronchial cuffing and increased interstitial and strandy opacities are seen in the right lower hemithorax, findings that could represent bilateral bronchitis and right basilar pneumonitis or atelectasis. 2. Stable cardiomegaly Laboratory Results WBC 10.8 10^3/uL (4.0-10.0) H 06/25/22 23:22 RBC 4.83 10^6/uL (4.1-5.3) 06/25/22 23: Hgb 14.7 g/dL (11.5-15.3) 06/25/22 23: Hct 45.8 % (37.0-47.0) 06/25/22 23: MCV 94.8 fl (81-99) 06/25/22 23: MCH 30.4 pg (28.0-34.0) 06/25/22 23: MCHC 32.1 g/dL (30.0-36.0) 06/25/22 23: RDW 15.6 % (12.1-15.1) H 06/25/22 23: Plt Count 165 10^3/cmm (130-400) 06/25/22 23: MPV 11.1 fL (7.4-10.4) H 06/25/22 23: Neut % (Auto) 91.1 % 06/25/22 23: Lymph % (Auto) 2.3 % 06/25/22 23: [place] % (Auto) 5.8 % 06/25/22 23: Eos % (Auto) 0.0 % 06/25/22 23: Baso % (Auto) 0.2 % 06/25/22 23: Neut # (Auto) 9.80 10^3/uL (1.8-7.7) H 06/25/22 23: Lymph # (Auto) 0.3 10^3/uL (0.8-4.8) L 06/25/22 23: [place] # (Auto) 0.6 10^3/uL (0.2-0.9) 06/25/22 23:22 Eos # (Auto) 0.0 10^3/uL (0.0-0.8) 06/25/22 23:22 Baso # (Auto) 0.0 10^3/uL (0.0-0.1) 06/25/22 23:22 Nucleated RBC % (auto) 0 % 06/25/22 23:22 Nucleated RBCs # 0.0 /100WBC 06/25/22 23:22 Specimen Type Arterial 06/25/22 23:35 Sample Site Radial, left 06/25/22 23:35 ABG pH 7.45 (7.35-7.45) 06/25/22 23:35 ABG pCO2 36.8 mmHg (35-45) 06/25/22 23:35 ABG pO2 61.5 mmHg (80.0-100.0) L 06/25/22 23:35 ABG HCO3 25.4 mmol/L (22-26) 06/25/22 23:35 ABG Base Excess 1.6 mmol/L (-2.0-2.0) 06/25/22 23:35 Jcarlos Test Pos 06/25/22 23:35 Hematocrit 44.5 % (37-47) 06/25/22 23:35 Hgb O2 Saturation 91.1 % (95-100) L 06/25/22 23:35 Carboxyhemoglobin 1.7 %THgb (0.4-20.1) 06/25/22 23:35 Methemoglobin 0.5 % (0.4-1.5) 06/25/22 23:35 Total Hemoglobin 14.5 g/dL (12-16) 06/25/22 23:35 O2 Delivery Device None 06/25/22 23:35 FiO2 21.0 % 06/25/22 23:35 Automobile Leasing Supervisor ID Mook 06/25/22 23:35 Sodium 142 mmol/L (136-145) 06/25/22 23:22 Potassium 3.5 mmol/L (3.5-5.1) 06/25/22 23:22 Chloride 105 mmol/L (98-107) 06/25/22 23:22 Carbon Dioxide 23 mmol/L (22-29) 06/25/22 23:22 Anion Gap 17.5 (5-19) 06/25/22 23:22 BUN 36 mg/dL (8-23) H 06/25/22 23:22 Creatinine 1.5 mg/dL (0.5-0.9) H 06/25/22 23:22 GFR Calculation Not Reportable 06/25/22 23:22 Glucose 130 mg/dL (65-115) H 06/25/22 23:22 Calculated Osmolality 304 mOsm/kg (285-295) H 06/25/22 23:22 Lactic Acid 1.6 mmol/L (0.5-2.2) 06/25/22 23:22 Calcium 9.0 mg/dL (8.5-10.5) 06/25/22 23:22 Total Bilirubin 0.9 mg/dL (0.15-1.2) 06/25/22 23:22 AST 31 U/L (0-32) 06/25/22 23:22 ALT 19 U/L (0-33) 06/25/22 23:22 Alkaline Phosphatase 183 U/L (35-105) H 06/25/22 23:22 NT-Pro-B Natriuret Pep 76895 pg/mL (0-450) H 06/25/22 23:22 Total Protein 6.5 g/dL (6.6-8.7) L 06/25/22 23:22 Albumin 3.8 g/dL (3.5-5.2) 06/25/22 23:22 Globulin 2.7 g/dL (1.3-4.6) 06/25/22 23:22 Influenza Type A Ag negative (Negative) 06/25/22 23:21 Influenza Type B Ag negative (Negative) 06/25/22 23:21 SARS-CoV-2 Ag (Rapid) negative (Negative) 06/25/22 23:21 Discharge Plan Discharge Patient Disposition: Admitted As Inpatient Clinical Impression: Community acquired pneumonia, Congestive heart failure Condition: Stable Prescriptions: No Action allopurinol 100 mg tablet 100 mg PO QAM ferrous sulfate 325 mg (65 mg iron) tablet 325 mg PO BID magnesium 250 mg tablet 250 mg PO QPM torsemide 20 mg tablet 20 mg PO BID Qty: 180 3RF metoprolol tartrate 25 mg tablet 12.5 mg PO BID acetaminophen 500 mg capsule 500 - 1,000 mg PO Q6H PRN (Reason: Pain) Hold Instructions: Resume on 04/28/21. metolazone 2.5 mg tablet 2.5 mg PO DAILY pantoprazole 40 mg tablet,delayed release (DR/EC) 40 mg PO DAILY Qty: 90 3RF pregabalin [Lyrica] 50 mg capsule 50 mg PO BID Qty: 60 5RF potassium chloride 20 mEq Tablet Extended Release 20 meq PO DAILY fluocinonide 0.05 % solution 1 applic TOPICAL BID PRN (Reason: Itching) clopidogrel 75 mg tablet 75 mg PO DAILY Referrals: Janie Agustin MD [Primary Care Provider] - Coding Level of Care Code ED Department Clerk for Chg 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
--- NOTE | 2022-06-25 23:08 | ECG_ITS ---
[facility] Test Date: 2022-06-25 Pat Name: Teena Timmons Department: Room: 278 Gender: Female Quill Layer: : 1945 Requested By: Paul Bowling Order Number: [id number] Zoe MD: Raji Wong M.D. Measurements Intervals [place] Rate: 70 P: 0 MT: 0 QRS: -72 QRSD: 184 T: 74 QT: 462 QTc: 501 Interpretive Statements ELECTRONIC VENTRICULAR PACEMAKER Compared to ECG 08/30/2021 15:37:02 No significant changes Electronically Signed On 06-26-2022 23:27:34 TAX ADVISOR by Raji Wong M.D. [id number]
[2022-06-25] MEDS: acetaminophen 500 mg Tablet 1000 MG PO (23:12)
[2022-06-25] MEDS: sodium chloride 0.9% 1,000 ML 999 ML IV (23:13)
[2022-06-25 23:14] VITALS: BP 120/70; PULSE 71; RESP 20; O2SAT 91
[2022-06-25] MEDS: cefTRIAXone 1,000 MG in sodium chloride 0.9% (plus) 50 ML 100 MG IV (23:26)
[2022-06-25 23:32] LABS: Basophils % 0.2 %; Hematocrit 45.8 % (37.0-47.0); Hemoglobin 14.7 g/dL (11.5-15.3); Lymphocytes # 0.3 10^3/uL (0.8-4.8); Lymphocytes % 2.3 %; Mean Corpuscular HGB Conc 32.1 g/dL (30.0-36.0); Mean Corpuscular Hemoglobin 30.4 pg (28.0-34.0); Mean Corpuscular Volume 94.8 fl (81-99); Mean Platelet Volume 11.1 fL (7.4-10.4); Monocytes # 0.6 10^3/uL (0.2-0.9); Monocytes % 5.8 %; Neutrophils % 91.1 %; Nucleated Red Blood Cells % 0 %; Platelet Count 165 10^3/cmm (130-400); Red Blood Count 4.83 10^6/uL (4.1-5.3); Red Cell Distribution Width 15.6 % (12.1-15.1); White Blood Count 10.8 10^3/uL (4.0-10.0)
[2022-06-25] MEDS: albuterol 2.5 mg/3 mL Neb INHALATION (23:34)
[2022-06-25 23:51] LABS: Lactic Sepsis W/Reflex 1.6 mmol/L (0.5-2.2)
[2022-06-25 23:52] LABS: ABG PCO2 36.8 mmHg (35-45); ABG PH Result 7.45 (7.35-7.45); Arterial Blood Gas Hematocrit 44.5 % (37-47); Base Excess ABG 1.6 mmol/L (-2.0-2.0); Blood Gas Allen Test Pos; Blood Gas Sample Site Radial, left; Blood Gas Sample Type Arterial; Carboxyhemoglobin 1.7 %THgb (0.4-20.1); HCO3 ABG 25.4 mmol/L (22-26); HGB O2 Sat 91.1 % (95-100); Methemoglobin 0.5 % (0.4-1.5); PO2 ABG 61.5 mmHg (80.0-100.0); Total Hemoglobin 14.5 g/dL (12-16)
[2022-06-26] VITALS (17 sets, daily range): BP systolic 104–146; BP diastolic 47–72; PULSE 69–76; RESP 16–21; TEMP 36.4–37; O2SAT 93–99
[2022-06-26 00:01] LABS: Alanine Aminotransferase 19 U/L (0-33); Albumin Level 3.8 g/dL (3.5-5.2); Alkaline Phosphatase 183 U/L (35-105); Anion Gap 17.5 (5-19); Aspartate Amino Transferase 31 U/L (0-32); Blood Urea Nitrogen 36 mg/dL (8-23); Carbon Dioxide 23 mmol/L (22-29); Chloride 105 mmol/L (98-107); Creatinine Clr Calc Pharmacy 35.0685; Globulin 2.7 g/dL (1.3-4.6); Glucose 130 mg/dL (65-115); NT Pro B Type Natriuretic Pept 12806 pg/mL (0-450); Osmolality Calculated 304 mOsm/kg (285-295); Potassium 3.5 mmol/L (3.5-5.1); Sodium 142 mmol/L (136-145); Total Bilirubin 0.9 mg/dL (0.15-1.2); Total Protein 6.5 g/dL (6.6-8.7)
[2022-06-26] MEDS: azithromycin 500 MG in sodium chloride 0.9% 250 ML 250 MG IV (00:10)
[2022-06-26] MEDS: FUROsemide 10 mg/mL SDV 10mL 60 MG IVP (00:11)
[2022-06-26 00:27] LABS: Influenza A by IFA negative (Negative); Influenza B by IFA negative (Negative); SARS Covid-2 Antigen negative (Negative)
--- NOTE | 2022-06-26 01:54 | P.HP_ITS ---
Providers/Chief Complaint Admitting Physician: Estrella Veras MD Primary Care Provider: Janie Agustin MD Chief Complaint: SOB History of Present Illness Teena Timmons is a 76 year old female with history of peripheral vascular disease, chronic kidney disease, presence of Watchman device, diastolic CHF presented with chief complaint of generalized weakness and confusion. Patient is stating that she recently visited her daughter who was recovering from a viral illness. When she returned home there was no power, she used kerosene lamps at home & candles. In last 2 to 3 days she has been experiencing sore throat, associated with fatigue and lethargy, as per the patient. Time she gets sick she sleeps a lot,, she was brought in by 911 when was not able to wake her up, she was very confused, she also soiled herself once. Patient is stating that she started getting cleared up in the ambulance and she knew what was going on. She does not use oxygen at home. She also noticed fever 101 at home. She is bringing up greenish sputum. Her green sputum production is only 1 day old. She is denying nausea, vomiting, chest pain, headache. In the ER she has been diagnosed with mild diastolic CHF exacerbation and right- sided pneumonia. She is awake and alert doing well on 2 L nasal cannula No sign of confusion Chronic kidney disease at baseline Patient takes torsemide 20 mg twice a day Patient is asking if she could be discharged as soon as possible Review of Systems Const: Reports: fever(s), chills and body aches Eyes: Denies: change in vision ENMT: Reports: throat pain Card: Denies: chest pain or swelling of feet/ankles Resp: Reports: dyspnea GI: Denies: abdominal pain : Denies: flank pain Musc: Denies: neck pain Skin/Breast: Denies: rash Neuro: Reports: headache(s) Psych: Reports: anxiety Endo: Denies: polyuria Yovanny/Lymph: Denies: easy bruising All/Imm: Denies: urticaria Medications/Allergies Home Medications Medication Instructions Recorded Confirmed Last Taken Type ferrous sulfate 325 mg (65 mg 325 mg PO BID 06/28/19 12/23/21 11/07/21 History iron) tablet magnesium 250 mg tablet 250 mg PO QPM 06/28/19 12/23/21 11/06/21 History allopurinol 100 mg tablet 100 mg PO QAM 07/06/19 12/23/21 11/07/21 History acetaminophen 500 mg capsule 500 - 1,000 mg PO Q6H PRN Pain 01/12/20 12/23/21 01/23/21 History potassium chloride 20 mEq 20 meq PO DAILY 04/19/21 12/23/21 11/07/21 History tablet,extended release metoprolol tartrate 25 mg tablet 12.5 mg PO BID 05/01/21 12/23/21 11/07/21 History torsemide 20 mg tablet 20 mg PO BID #180 tabs 06/02/21 12/23/21 11/07/21 Rx clopidogrel 75 mg tablet 75 mg PO DAILY 11/07/21 12/23/21 11/07/21 History fluocinonide 0.05 % topical 1 applic topical BID PRN Itching 11/07/21 12/23/21 Unknown History solution metolazone 2.5 mg tablet 2.5 mg PO DAILY 12/01/21 12/23/21 Unknown History pantoprazole 40 mg tablet,delayed 40 mg PO DAILY #90 tabs 02/09/22 Unknown Rx release pregabalin 50 mg capsule (Lyrica) 50 mg PO BID #60 caps 02/11/22 Unknown Rx Allergies Allergy/AdvReac Type Severity Reaction Status Date / Time morphine Allergy Unknown Unknown Verified 12/23/21 09:01 Iodinated Contrast Media Allergy Unknown Verified 12/23/21 09:01 latex Allergy hives Verified 12/23/21 09:01 Ebioidf-DVN-UxE Reductase AdvReac Intermediate ADR-Muscle Verified 12/23/21 09:01 Inhibitor Pain [Ryyqpzj-Uty-Wio Reductase Inhibitor] TPA Allergy Unknown ALGY-Anaphy Uncoded 04/30/22 15:24 laxis,angio edema PFSH Acute PFSH: Medical History Acute kidney injury superimposed on chronic kidney disease Acute on chronic anemia Acute on chronic systolic heart failure Acute renal failure Alcoholism in recovery Anemia Atrial fibrillation Breast CA Breast cancer Cardiac resynchronization therapy defibrillator (SCREW MACHINE OPERATOR-D) in place Cardiomyopathy Carotid stenosis, bilateral CHF (congestive heart failure) Chronic kidney disease Chronic systolic heart failure CKD (chronic kidney disease) Claudication Confusion COPD (chronic obstructive pulmonary disease) CVA (cerebral vascular accident) DJD (degenerative joint disease), lumbar History of gastric ulcer HTN (hypertension) Hypotension ICD (implantable cardioverter-defibrillator) in place Mitral regurgitation Non-ischemic cardiomyopathy Occult blood positive stool Orthostatic dizziness VALE on CPAP Peripheral arterial disease Peripheral vascular disease Pneumonia Presence of Watchman left atrial appendage closure device PUD (peptic ulcer disease) PVCs (premature ventricular contractions) Surgical History History of cardiac radiofrequency ablation History of resection of meningioma Previous back surgery S/P cataract extraction S/P lumpectomy of breast Family History Sister Cancer Social History Smoking and tobacco status: former smoker Alcohol intake: former Other details last alcohol use: recovering alcoholic Household members: spouse Marital status: Vitals/I&O/Wt Last Vital Signs Temp 98.6 F 06/26/22 00:34 Pulse 75 06/26/22 00:53 Resp 19 H 06/26/22 00:53 BP 119/57 06/26/22 00:53 Pulse Ox 95 06/26/22 00:53 O2 Del Method 06/26/22 00:34 06/25/22 06/25/22 06/26/22 14:59 22:59 06:59 Intake Total 1300 / 1300 Balance 1300 / 1300 Weight last 48 hrs Weight 90.718 kg Physical Exam Narrative: She is pleasant and cooperative Laying supine without any discomfort PERRLA Currently on 2 L No signs of congestive heart failure Awake and alert Pleasant cooperative Abdomen soft No rhonchi or crackles Patient is stating that she is feeling fresh Appropriate mood and affect Appears stated age Data 06/25/22 23:22 06/25/22 23:22 Micro: Microbiology 06/25/22 23:20 Blood Culture - Preliminary Blood SPECIMEN COLLECTED 06/25/22 23:22 Blood Culture - Preliminary Blood SPECIMEN COLLECTED A&P Assessment and plan (1) Community acquired pneumonia: (2) Congestive heart failure: (3) Hypokalemia: (4) Hypoxia: (5) Chronic kidney disease: Plan Metabolic encephalopathy related to community-acquired pneumonia Encephalopathy has resolved Right-sided consolidation on chest x-ray Started on ceftriaxone and azithromycin COVID rapid antigen negative No signs of sepsis Hypoxia related to mild diastolic CHF exacerbation and pneumonia Wean oxygen to room air she does not use oxygen at home Endorsing greenish sputum production Requested sputum culture Hypokalemia: Potassium repleted Mild diastolic CHF exacerbation I will use Bumex for now she takes torsemide 20 mg twice a day Clinically looks euvolemic Chronic kidney disease creatinine seems around baseline Full code Cardiac diet DVT prophylaxis on board Patient is asking if she could be discharged home because she has a big event tomorrow Attestations Medical Necessity Statement*: Anticipating discharge within 48 hours Time Spent in Patient Care: 40 Coding Level of Care Code Acute Code for [facility] Fwd Diagnoses Community acquired pneumonia J18.9 Congestive heart failure I50.9 Hypokalemia E87.6 Hypoxia R09.02 Chronic kidney disease N18.9
[2022-06-26 02:21] LABS: D Dimer 1.93 ug/mIFEU (0-0.59)
[2022-06-26] MEDS: heparin 5,000 unit/mL INJ 1 mL 5000 UNIT SUBCUT ×2 (02:28→14:30)
[2022-06-26 02:38] LABS: Procalcitonin 1.47 ng/mL (0-0.5); Thyroid Stimulating Hormone 2.02 uIU/mL (0.27-4.20)
[2022-06-26 06:03] LABS: Basophils % 0.1 %; Hemoglobin 13.7 g/dL (11.5-15.3); Lymphocytes # 0.4 10^3/uL (0.8-4.8); Lymphocytes % 3.1 %; Mean Corpuscular HGB Conc 31.1 g/dL (30.0-36.0); Mean Corpuscular Hemoglobin 29.9 pg (28.0-34.0); Mean Corpuscular Volume 96.1 fl (81-99); Mean Platelet Volume 10.8 fL (7.4-10.4); Monocytes # 0.6 10^3/uL (0.2-0.9); Monocytes % 4.8 %; Neutrophils # 11.68 10^3/uL (1.8-7.7); Neutrophils % 91.5 %; Nucleated Red Blood Cells % 0 %; Platelet Count 137 10^3/cmm (130-400); Red Blood Count 4.58 10^6/uL (4.1-5.3); Red Cell Distribution Width 15.7 % (12.1-15.1); White Blood Count 12.8 10^3/uL (4.0-10.0)
[2022-06-26 06:22] LABS: Anion Gap 18.4 (5-19); Blood Urea Nitrogen 36 mg/dL (8-23); Calcium 8.5 mg/dL (8.5-10.5); Carbon Dioxide 23 mmol/L (22-29); Chloride 107 mmol/L (98-107); Glucose 157 mg/dL (65-115); Magnesium 2.3 mg/dL (1.7-2.3); Osmolality Calculated 312 mOsm/kg (285-295); Phosphorus 4.1 mg/dL (2.5-4.5); Potassium 3.4 mmol/L (3.5-5.1); Sodium 145 mmol/L (136-145)
[2022-06-26 06:30] LABS: Creatinine Clr Calc Pharmacy 35.0685
[2022-06-26] MEDS: potassium chloride ER 20 mEq Tablet 40 MEQ PO (09:27)
[2022-06-26] MEDS: bumetanide 1 mg Tablet 2 MG PO (09:27)
[2022-06-26] MEDS: azithromycin 250 mg Tablet 500 MG PO (09:27)
[2022-06-26] MEDS: cefTRIAXone 1,000 MG in sodium chloride 0.9% (plus) 50 ML 100 MG IV (09:29)
--- NOTE | 2022-06-26 11:50 | PC.CHAP ---
Pastoral Care Encounter/Spiritual Assessment Type of Contact [] Declined guest experience specialist visit [] Patient/Family/Request visit [] Outpatient visit [] Follow-up visit [] Physician referral [] Code/Alert [x] Routine visit [] Staff referral [] Actively dying [] Patient sleeping [] Family support [] [] Out of room [] Palliative care [] [] Receiving care in room [] Pre-surgical visit [] Trauma [] Long length of stay [] ICU visit [] Other: Relational/Emotional Strength [] Patient feels connected with others/family/visitors/staff [] Distress [] Loneliness/isolation [] Abandonment Spirituality of Patient [x] Person of Bernie [] Attends Zoroastrian of their Bernie [x] Believes in Prayer [] Reads Bible or Episcopal materials [] There are Spiritual issues to be addressed Spareribs Trimmer Interventions [x] Prayer [] Active listening [] Non-anxious presence [] Spiritual/emotional support [] Crisis/trauma care [] Spiritual counseling [] Bereavement support [] Provided bereavement packet [] Provided Bible/devotional materials [] Provided toy/stuffed animal, coloring book to patient or family member [] Provided Communion [] Anointing/[place] [] Salvation [x] Completed spiritual assessment [] Other: Impact on Illness or Injury [] Angry [] Fearful [] Anxious [] Often cries [] Exhaustion [] Unable to work [] Unable to attend baptism [] Unable to walk/stand [] Unable to read [] Unable to drive [] Unable to eat/drink [] Unable to sleep [] Unable to be with family [] Patient intubated [] Other: Summary Time spent with patient 5 min
[2022-06-26] MEDS: ipratropium-albuterol 3 mL Neb INHALATION ×2 (13:30→20:04)
[2022-06-26] MEDS: acetaminophen 500 mg Tablet PO (14:18)
[2022-06-26] MEDS: benzonatate 100 mg Capsule 200 MG PO (14:18)
--- NOTE | 2022-06-26 16:14 | PM.PN ---
Subjective Subjective: She is overall feeling better, but is not back to her usual self. Still getting dyspneic. Coughing. She states that she takes CHF seriously and reduces sodium and fluid intake. Vitals/I&O/Wt Last Vital Signs Temp 97.8 F 06/26/22 14:00 Pulse 73 06/26/22 14:00 Resp 16 06/26/22 14:00 BP 119/57 06/26/22 14:00 Pulse Ox 99 06/26/22 14:00 O2 Del Method 06/26/22 14:00 O2 Flow Rate 2 06/26/22 13:30 06/26/22 06/26/22 06/26/22 06:59 14:59 22:59 Intake Total 1300 / 1300 410 / 410 Balance 1300 / 1300 410 / 410 Weight last 48 hrs Weight 90.718 kg Physical Exam Narrative: Accompanied by her . Const: COMMON NORMALS: patient oriented x3 and alert GENERAL APPEARANCE: cooperative ORIENTATION/CONSCIOUSNESS: Yes awake HENMT: COMMON NORMALS: oropharynx normal Neck/C-Spine: COMMON NORMALS: no JVD Resp: COMMON NORMALS: normal respiratory effort and clear to auscultation bilaterally AUSCULTATION: clear to auscultation bilaterally Cardio: COMMON NORMALS: no JVD, regular rhythm, S1 normal heart sound present, S2 normal heart sound present and No murmurs present (Cardio) RHYTHM: regular rhythm HEART SOUNDS: S1 normal heart sound present and S2 normal heart sound present GI: COMMON NORMALS: Normal to inspection, nondistended, normoactive bowel sounds present, Soft to palpation and non-tender PALPATION: Yes Soft to palpation Extremity: COMMON NORMALS: no joint enlargement and no pedal edema Neuro: COMMON NORMALS: patient oriented x3 and moves all extremities SENSORIUM/ORIENTATION: Yes alert Skin: COMMON NORMALS: no rashes or lesions noted GENERAL SKIN EXAM: no rashes or lesions noted Data 06/26/22 05:53 06/26/22 05:53 Micro: Microbiology 06/26/22 05:55 MRSA Culture - Final Nose 06/26/22 07:15 Bacterial Antigens - Final Urine,Voided 06/25/22 23:20 Blood Culture - Preliminary Blood SPECIMEN COLLECTED 06/25/22 23:22 Blood Culture - Preliminary Blood SPECIMEN COLLECTED A&P Assessment and plan (1) Community acquired pneumonia: Gradually improving. Encephalopathy resolved. Continue ceftriaxone, azithromycin. Sputum culture if she is able to provide. Follow-up blood culture. (2) Congestive heart failure: With improvement. Switched to oral diuretic. Reassess volume status. (3) Hypoxia: Hypoxia gradually improving. Continue treatment of pneumonia. (4) Hypokalemia: Received potassium. Still on the low side, 3.4. Give additional potassium. Recheck level. (5) Chronic kidney disease: Plan Metabolic encephalopathy related to community-acquired pneumonia Encephalopathy has resolved Chronic kidney disease creatinine seems around baseline Full code Cardiac diet DVT prophylaxis on board Attestations Medical Necessity Statement*: Continue admission for assessment of management of pneumonia with hypoxia in a lady with underlying CHF, CKD. Coding Level of Care Code Acute Code for [facility] Diagnoses Community acquired pneumonia J18.9 Congestive heart failure I50.9 Hypoxia R09.02 Hypokalemia E87.6 Chronic kidney disease N18.9
[2022-06-26] MEDS: metoprolol tartrate 25 mg Tablet 12.5 MG PO (18:23)
--- NOTE | 2022-06-26 19:03 | PC.NURSE ---
Patient rates her chest pain 2/10. Patient states it's muskuloskeletal, it's when I cough. When i cough it's an 8-10. My muscles are sore to the touch.
[2022-06-27] VITALS (7 sets, daily range): BP systolic 110–129; BP diastolic 61–87; PULSE 67–71; RESP 15–18; TEMP 36.6–37.5; O2SAT 94–96
[2022-06-27] MEDS: heparin 5,000 unit/mL INJ 1 mL 5000 UNIT SUBCUT (01:47)
[2022-06-27] MEDS: benzonatate 100 mg Capsule 200 MG PO (02:01)
--- NOTE | 2022-06-27 04:58 | PC.NURSE ---
At 0425 patient had a 6 beat run of Vtach. She was asymptomatic. Reported to Dr. Veras at 0500.
[2022-06-27 05:09] LABS: Basophils % 0.2 %; Eosinophils # 0.1 10^3/uL (0.0-0.8); Eosinophils % 0.6 %; Hematocrit 41.9 % (37.0-47.0); Hemoglobin 13.1 g/dL (11.5-15.3); Lymphocytes # 0.6 10^3/uL (0.8-4.8); Lymphocytes % 6.7 %; Mean Corpuscular HGB Conc 31.3 g/dL (30.0-36.0); Mean Corpuscular Hemoglobin 30.7 pg (28.0-34.0); Mean Corpuscular Volume 98.1 fl (81-99); Mean Platelet Volume 12.1 fL (7.4-10.4); Monocytes # 0.8 10^3/uL (0.2-0.9); Neutrophils # 7.49 10^3/uL (1.8-7.7); Neutrophils % 83.1 %; Nucleated Red Blood Cells % 0 %; Platelet Count 149 10^3/cmm (130-400); Red Blood Count 4.27 10^6/uL (4.1-5.3); Red Cell Distribution Width 15.9 % (12.1-15.1)
[2022-06-27 05:30] LABS: Alanine Aminotransferase 17 U/L (0-33); Albumin Level 3.2 g/dL (3.5-5.2); Alkaline Phosphatase 163 U/L (35-105); Anion Gap 16.3 (5-19); Aspartate Amino Transferase 23 U/L (0-32); Blood Urea Nitrogen 41 mg/dL (8-23); Calcium 8.9 mg/dL (8.5-10.5); Carbon Dioxide 22 mmol/L (22-29); Chloride 104 mmol/L (98-107); Globulin 2.5 g/dL (1.3-4.6); Glucose 128 mg/dL (65-115); Osmolality Calculated 298 mOsm/kg (285-295); Potassium 4.3 mmol/L (3.5-5.1); Sodium 138 mmol/L (136-145); Total Protein 5.7 g/dL (6.6-8.7)
[2022-06-27] MEDS: bumetanide 1 mg Tablet 2 MG PO (09:30)
[2022-06-27] MEDS: cefTRIAXone 1,000 MG in sodium chloride 0.9% (plus) 50 ML 100 MG IV (09:31)
[2022-06-27] MEDS: metoprolol tartrate 25 mg Tablet 12.5 MG PO (09:33)
[2022-06-27] MEDS: acetaminophen 500 mg Tablet PO (10:50)
[2022-06-27] MEDS: azithromycin 250 mg Tablet 500 MG PO (11:54)
--- NOTE | 2022-06-27 12:40 | PM.DCS ---
Discharge Providers Date of Admission: 06/26/22 17:56 Date of Discharge: June 27, 2022 Attending Provider at Admission: Estrella Veras MD Attending Provider at Discharge: Remi Duran Primary Care Provider: Janie Agustin MD Diagnoses at Discharge Discharge Diagnosis (1) Community acquired pneumonia: Status: Acute (2) Congestive heart failure: Status: Acute (3) Hypoxia: Status: Acute (4) Hypokalemia: Status: Acute (5) Chronic kidney disease: Status: Acute Reason for Visit Reason for Visit: SOB Hospital Course Hospital Course Pleasant 76-year-old lady with history of diastolic CHF, PVD, CKD, watchman device, was admitted for assessment management after presenting with generalized weakness and confusion, was recently visited by her daughter who is recovering from a viral illness. He has been increasing sore throat, fatigue, lethargy, sleeping a lot, could not wake her up and she was very confused, soiled herself once. Febrile up to 101. Not normally on oxygen. On presentation requiring oxygen, during hospitalization required 2 L supplementation. With acute encephalopathy on presentation secondary to pneumonia, also initially in CHF exacerbation. Was treated with ceftriaxone and azithromycin. Rapid COVID-19 and flu were negative. Mental status is improved with resolution of encephalopathy. Remains awake and alert. Oxygenation has been gradually improving. She continues to cough with some productive cough, but otherwise feels significantly better. CHF resolved with treatment. Chronic kidney disease appears at baseline. Oxygenation today is better appears to wean down to room air at least at rest. She is returning home to complete antibiotic course with cefdinir plus remaining azithromycin, flutter valve, expectorants and antitussives. Physical Exam Narrative: Accompanied by her . Const: COMMON NORMALS: patient oriented x3 and alert GENERAL APPEARANCE: cooperative ORIENTATION/CONSCIOUSNESS: Yes awake HENMT: COMMON NORMALS: oropharynx normal Neck/C-Spine: COMMON NORMALS: no JVD Resp: COMMON NORMALS: normal respiratory effort and clear to auscultation bilaterally EFFORT & INSPECTION: Yes able to speak in complete sentences AUSCULTATION: clear to auscultation bilaterally Cardio: COMMON NORMALS: no JVD, regular rhythm, S1 normal heart sound present, S2 normal heart sound present and No murmurs present (Cardio) RHYTHM: regular rhythm HEART SOUNDS: S1 normal heart sound present and S2 normal heart sound present GI: COMMON NORMALS: Normal to inspection, nondistended, normoactive bowel sounds present, Soft to palpation and non-tender PALPATION: Yes Soft to palpation Extremity: COMMON NORMALS: no joint enlargement and no pedal edema Neuro: COMMON NORMALS: patient oriented x3 and moves all extremities SENSORIUM/ORIENTATION: Yes alert Skin: COMMON NORMALS: no rashes or lesions noted GENERAL SKIN EXAM: no rashes or lesions noted Discharge Data Studies Completed and Pending Completed Studies During Hospitalization Category Date Time Status XR chest 1V portable [id number] Stat Exams 06/25/22 23:01 Completed Pending at discharge Category Date Time Status Blood Culture Stat Lab 06/25/22 23:20 Results Complete Blood Count w/Auto AM LABS Lab 06/28/22 04:00 Ordered Complete Blood Count w/Auto AM LABS Lab 06/29/22 04:00 Ordered Comprehensive Metabolic Panel AM LABS Lab 06/28/22 04:00 Ordered Comprehensive Metabolic Panel AM LABS Lab 06/29/22 04:00 Ordered Sputum Culture and Gram Stain Stat Lab 06/26/22 01:56 Uncollected Radiology Impressions Chest X-Ray 06/25/22 23:01 IMPRESSION: 1. Mild peribronchial cuffing and increased interstitial and strandy opacities are seen in the right lower hemithorax, findings that could represent bilateral bronchitis and right basilar pneumonitis or atelectasis. 2. Stable cardiomegaly Laboratory Results WBC 9.0 10^3/uL (4.0-10.0) 06/27/22 04:53 RBC 4.27 10^6/uL (4.1-5.3) 06/27/22 04:53 Hgb 13.1 g/dL (11.5-15.3) 06/27/22 04:53 Hct 41.9 % (37.0-47.0) 06/27/22 04:53 MCV 98.1 fl (81-99) 06/27/22 04:53 MCH 30.7 pg (28.0-34.0) 06/27/22 04:53 MCHC 31.3 g/dL (30.0-36.0) 06/27/22 04:53 RDW 15.9 % (12.1-15.1) H 06/27/22 04:53 Plt Count 149 10^3/cmm (130-400) 06/27/22 04:53 MPV 12.1 fL (7.4-10.4) H 06/27/22 04:53 Neut % (Auto) 83.1 % 06/27/22 04:53 Lymph % (Auto) 6.7 % 06/27/22 04:53 [place] % (Auto) 9.0 % 06/27/22 04:53 Eos % (Auto) 0.6 % 06/27/22 04:53 Baso % (Auto) 0.2 % 06/27/22 04:53 Neut # (Auto) 7.49 10^3/uL (1.8-7.7) 06/27/22 04:53 Lymph # (Auto) 0.6 10^3/uL (0.8-4.8) L 06/27/22 04:53 [place] # (Auto) 0.8 10^3/uL (0.2-0.9) 06/27/22 04:53 Eos # (Auto) 0.1 10^3/uL (0.0-0.8) 06/27/22 04:53 Baso # (Auto) 0.0 10^3/uL (0.0-0.1) 06/27/22 04:53 Nucleated RBC % (auto) 0 % 06/27/22 04:53 Nucleated RBCs # 0.0 /100WBC 06/27/22 04:53 D-Dimer 1.93 ug/mIFEU (0-0.59) H 06/25/22 23:22 Specimen Type Arterial 06/25/22 23:35 Sample Site Radial, left 06/25/22 23:35 ABG pH 7.45 (7.35-7.45) 06/25/22 23:35 ABG pCO2 36.8 mmHg (35-45) 06/25/22 23:35 ABG pO2 61.5 mmHg (80.0-100.0) L 06/25/22 23:35 ABG HCO3 25.4 mmol/L (22-26) 06/25/22 23:35 ABG Base Excess 1.6 mmol/L (-2.0-2.0) 06/25/22 23:35 Jcarlos Test Pos 06/25/22 23:35 Hematocrit 44.5 % (37-47) 06/25/22 23:35 Hgb O2 Saturation 91.1 % (95-100) L 06/25/22 23:35 Carboxyhemoglobin 1.7 %THgb (0.4-20.1) 06/25/22 23:35 Methemoglobin 0.5 % (0.4-1.5) 06/25/22 23:35 Total Hemoglobin 14.5 g/dL (12-16) 06/25/22 23:35 O2 Delivery Device None 06/25/22 23:35 FiO2 21.0 % 06/25/22 23:35 [employer] Manager ID Mook 06/25/22 23:35 Sodium 138 mmol/L (136-145) 06/27/22 04:53 Potassium 4.3 mmol/L (3.5-5.1) 06/27/22 04:53 Chloride 104 mmol/L (98-107) 06/27/22 04:53 Carbon Dioxide 22 mmol/L (22-29) 06/27/22 04:53 Anion Gap 16.3 (5-19) 06/27/22 04:53 BUN 41 mg/dL (8-23) H 06/27/22 04:53 Creatinine 1.6 mg/dL (0.5-0.9) H 06/27/22 04:53 GFR Calculation Not Reportable 06/27/22 04:53 Glucose 128 mg/dL (65-115) H 06/27/22 04:53 Calculated Osmolality 298 mOsm/kg (285-295) H 06/27/22 04:53 Lactic Acid 1.6 mmol/L (0.5-2.2) 06/25/22 23:22 Calcium 8.9 mg/dL (8.5-10.5) 06/27/22 04:53 Phosphorus 4.1 mg/dL (2.5-4.5) 06/26/22 05:53 Magnesium 2.3 mg/dL (1.7-2.3) 06/26/22 05:53 Total Bilirubin 1.0 mg/dL (0.15-1.2) 06/27/22 04:53 AST 23 U/L (0-32) 06/27/22 04:53 ALT 17 U/L (0-33) 06/27/22 04:53 Alkaline Phosphatase 163 U/L (35-105) H 06/27/22 04:53 C-Reactive Protein 60.0 mg/L (0.0-4.9) H 06/26/22 05:53 NT-Pro-B Natriuret Pep 66808 pg/mL (0-450) H 06/25/22 23:22 Total Protein 5.7 g/dL (6.6-8.7) L 06/27/22 04:53 Albumin 3.2 g/dL (3.5-5.2) L 06/27/22 04:53 Globulin 2.5 g/dL (1.3-4.6) 06/27/22 04:53 Procalcitonin 1.47 ng/mL (0-0.5) H 06/25/22 23:22 TSH 2.02 uIU/mL (0.27-4.20) 06/25/22 23:22 Influenza Type A Ag negative (Negative) 06/25/22 23:21 Influenza Type B Ag negative (Negative) 06/25/22 23:21 SARS-CoV-2 Ag (Rapid) negative (Negative) 06/25/22 23:21 Vitals Last Vital Signs Temp 97.8 F 06/27/22 12:20 Pulse 71 06/27/22 12:20 Resp 18 06/27/22 12:20 BP 129/87 06/27/22 12:20 Pulse Ox 94 06/27/22 12:20 O2 Del Method 06/27/22 08:00 O2 Flow Rate 2 06/26/22 21:15 FiO2 21 06/26/22 20:04 Discharge Plan Discharge Patient Disposition: Home Condition: Stable Prescriptions: New cefdinir 300 mg capsule 300 mg PO BID 5 Days Qty: 10 0RF benzonatate 200 mg capsule 200 mg PO TID PRN (Reason: cough) Qty: 30 0RF Mucinex 600 mg tablet extended release 12hr 600 mg PO BID PRN (Reason: congestion) Qty: 30 0RF Continued allopurinol 100 mg tablet 100 mg PO QAM ferrous sulfate 325 mg (65 mg iron) tablet 325 mg PO BID magnesium 250 mg tablet 250 mg PO QPM torsemide 20 mg tablet 20 mg PO BID Qty: 180 3RF metoprolol tartrate 25 mg tablet 12.5 mg PO BID acetaminophen 500 mg capsule 500 - 1,000 mg PO Q6H PRN (Reason: Pain) Hold Instructions: Resume on 04/28/21. metolazone 2.5 mg tablet 2.5 mg PO DAILY pantoprazole 40 mg tablet,delayed release (DR/EC) 40 mg PO DAILY Qty: 90 3RF pregabalin [Lyrica] 50 mg capsule 50 mg PO BID Qty: 60 5RF potassium chloride 20 mEq Tablet Extended Release 20 meq PO DAILY fluocinonide 0.05 % solution 1 applic TOPICAL BID PRN (Reason: Itching) clopidogrel 75 mg tablet 75 mg PO DAILY azithromycin 250 mg tablet See Rx Instructions .ROUTE .COMPLEX Rx Instructions: 250 mg orally DIRECTED Discharge Orders: Discharge Order (Routine); Ordered 06/27/22 Ordered By: Remi Duran Referrals: Janie Agustin MD [Primary Care Provider] - 4-7 days (Please call Wednesday to schedule follow up appointment.) Discharge Diet: Cardiac Discharge Activity: Increase activity as tolerated Patient Instructions: Benzonatate (By mouth), Cefdinir (By mouth), Heart Failure (GEN), Bacterial Pneumonia (GEN), Opioid Safety Activity Restrictions/Additional Instructions: Flutter valve Discharge Attestations Time Spent in Discharge Care*: greater than 30 min Status at Discharge: Cognitive status at discharge: cognitively intact, Behavioral status at discharge: cooperative, Quality Metrics Clinical Quality Measures [ No reported AMI, CVA or VTE this stay] Coding Level of Care Code Acute Code for Chg Fwd Diagnoses Community acquired pneumonia J18.9 Congestive heart failure I50.9 Hypoxia R09.02 Hypokalemia E87.6 Chronic kidney disease N18.9
== END 2022-06-27 13:20 | disposition home or self-care (01) | DRG 193 ==
LOC: ER 06-26 00:34 → MEDSURG 06-26 00:54
PROVIDERS: Admitting Provider Internal Medicine; Emergency Provider Emergency Medicine; PCP Internal Medicine; Visit Provider Internal Medicine
DX: J18.9 Pneumonia, unspecified organism (principal); G93.41 Metabolic encephalopathy; I50.31 Acute diastolic (congestive) heart failure; I13.0 Hypertensive heart and chronic kidney disease with heart failure and stage 1 through stage 4 chronic kidney disease, or unspecified chronic kidney disease; J44.0 Chronic obstructive pulmonary disease with (acute) lower respiratory infection; I42.8 Other cardiomyopathies; N18.9 Chronic kidney disease, unspecified; E87.6 Hypokalemia; I73.9 Peripheral vascular disease, unspecified; Z79.51 Long term (current) use of inhaled steroids; Z79.02 Long term (current) use of antithrombotics/antiplatelets; D63.1 Anemia in chronic kidney disease; Z85.3 Personal history of malignant neoplasm of breast; Z86.73 Personal history of transient ischemic attack (TIA), and cerebral infarction without residual deficits; Z87.891 Personal history of nicotine dependence; Z87.11 Personal history of peptic ulcer disease; I34.0 Nonrheumatic mitral (valve) insufficiency
CPT/HCPCS: 36415; 36600; 71045; 80048; 80053; 82805; 83605; 83735; 83880; 84100; 84145; 84443; 85025; 85378; 86140; 86403; 87040; 87426; 87641; 87804; 93005; 94640; 94664; 94760; 96365; 96367; 96372; 96375; 97110; 97161; 97530; 99285; G0378; J0456; J0696; J1644; J1940; J7030; J7050; J7613; Q0144

== ENCOUNTER 2022-06-30 13:41 | Outpatient (CLI) | payer MEDICARE, OTHER, SELFPAY ==
--- NOTE | 2022-06-30 14:17 | XRR_ITS ---
PROCEDURE INFORMATION: Exam: XR Chest Exam date and time: 06/30/2022 2:20 PM Age: 76 years old Clinical indication: Condition or disease; Lung condition and disease; Pneumonia; Bacterial; Prior surgery; Surgery type: Breast, pacemaker; Additional info: Pneumonia, bacterial TECHNIQUE: Imaging protocol: Radiologic exam of the chest. Views: 2 views. COMPARISON: CR (CHEST, ) 06/25/2022 11:08 PM FINDINGS: Lungs: There is vague ground-glass opacification with indistinct peribronchial markings right lower lobe with some peribronchial cuffing also present previously suspicious for infectious bronchiolitis. Remaining lung chacon are aerated and clear. Pleural spaces: Unremarkable. No pleural effusion. No pneumothorax. Heart/Mediastinum: Heart is enlarged, unchanged. There are pacemaker wires in ICD monitor is extending into the right atrium and right ventricle unchanged. Bones/joints: Unremarkable for age. XR/XR chest 2V* [id number] IMPRESSION: Findings suspicious for scattered bronchiolitis right lower lobe likely infectious in nature.
== END 2022-06-30 13:42 | disposition home or self-care (01) ==
PROVIDERS: PCP Internal Medicine; Visit Provider Internal Medicine
DX: J15.9 Unspecified bacterial pneumonia (principal); N18.9 Chronic kidney disease, unspecified; J18.9 Pneumonia, unspecified organism; I49.3 Ventricular premature depolarization; Z86.73 Personal history of transient ischemic attack (TIA), and cerebral infarction without residual deficits; I65.23 Occlusion and stenosis of bilateral carotid arteries; Z95.818 Presence of other cardiac implants and grafts; Z98.890 Other specified postprocedural states; G47.33 Obstructive sleep apnea (adult) (pediatric); Z99.89 Dependence on other enabling machines and devices; I50.9 Heart failure, unspecified; I42.0 Dilated cardiomyopathy; Z95.810 Presence of automatic (implantable) cardiac defibrillator; I48.19 Other persistent atrial fibrillation; F10.21 Alcohol dependence, in remission; Z87.891 Personal history of nicotine dependence
CPT/HCPCS: 71046; 99214

== ENCOUNTER 2022-07-04 11:49 | Emergency (ER) | payer MEDICARE, OTHER, SELFPAY ==
[2022-07-04 11:50] VITALS: BP 124/69; PULSE 70; RESP 16; TEMP 36.8; O2SAT 97
--- NOTE | 2022-07-04 12:10 | XRR_ITS ---
PROCEDURE INFORMATION: Exam: XR Left Knee Exam date and time: 07/04/2022 1:23 PM Age: 76 years old Clinical indication: Injury or trauma; Blunt trauma; Left; Patient HX: Fall, knee pain TECHNIQUE: Imaging protocol: Radiologic exam of the Left knee. Views: 3 views. COMPARISON: CR XR knee LT 3V* [id number] 11/21/2021 3:38 PM FINDINGS: Bones/joints: Alignment is normal. No acute fracture. Femorotibial joint spaces are preserved. There is patellofemoral joint space narrowing and osteophytes. No joint effusion. Soft tissues: Visible soft tissues are unremarkable. XR/XR knee LT 3V* [id number] IMPRESSION: No acute findings.
--- NOTE | 2022-07-04 12:10 | CTR_ITS ---
PROCEDURE INFORMATION: Exam: CT Cervical Spine Without Contrast Exam date and time: 07/04/2022 1:23 PM Age: 76 years old Clinical indication: Patient HX: PT C/O head/neck pain S/P fall TECHNIQUE: Imaging protocol: Computed tomography of the cervical spine without contrast. Radiation optimization: All CT scans at this facility use at least one of these dose optimization techniques: automated exposure control; mA and/or kV adjustment per patient size (includes targeted exams where dose is matched to clinical indication); or iterative reconstruction. Other protocol: This patient has received [address] and 0 known cardiac nuclear medicine studies in the 12 months prior to the current study. COMPARISON: CT cervical spine 10/08/2010, CT chest without contrast 05/04/2014, CTA chest 04/19/2021 RADIATION DOSE METRICS: Total DLP (mGy-cm): 252.3 FINDINGS: Bones/joints: No acute fracture. Minimal degenerative grade 1 anterolisthesis of C3. Marginal disc osteophyte complexes are producing mild spinal stenosis at C4-C5, C5-C6 and C6-C7 levels. There are degenerative changes in uncovertebral and facet joints contributing to foraminal stenosis (mild to moderate right at C4-C5, moderate bilateral at C5-C6, moderate right and mild left at C6-C7 level). Lungs: Stable mild subpleural scarring in the right apex. Thyroid: Nodule behind the left thyroid lobe within the left tracheoesophageal groove likely represents exophytic thyroid nodule. It measures 2.4 x 1.7 x 2.5 cm unchanged since 2020 versus 1.9 x 1.3 x 2.5 cm in 2013, and 1.5 x 1.2 x 2.5 cm in 2010. Vasculature: There are calcifications in the origin of bilateral internal carotid arteries. Soft tissues: Unremarkable. CT/CT cervical spin wo con* [id number] IMPRESSION: No acute fracture. Degenerative changes in the cervical spine as described. Carotid artery calcifications. 2.5 cm nodule behind the left thyroid lobe with little change in size since 2010 is compatible with benign finding, likely exophytic thyroid nodule. No follow-up imaging is recommended.
--- NOTE | 2022-07-04 12:10 | CTR_ITS ---
PROCEDURE INFORMATION: Exam: CT Head Without Contrast Exam date and time: 07/04/2022 1:23 PM Age: 76 years old Clinical indication: Prior surgery; Surgery date: 6+ months; Surgery type: PT C/O head/neck pain S/P fall. HX of brain tumor removed. HX of breast CA; Additional info: Fall on plavix TECHNIQUE: Imaging protocol: Computed tomography of the head without contrast. Radiation optimization: All CT scans at this facility use at least one of these dose optimization techniques: automated exposure control; mA and/or kV adjustment per patient size (includes targeted exams where dose is matched to clinical indication); or iterative reconstruction. Other protocol: This patient has received [address] and 0 known cardiac nuclear medicine studies in the 12 months prior to the current study. COMPARISON: CT head wo con* [id number] 12/10/2020 12:37 AM RADIATION DOSE METRICS: Total DLP (mGy-cm): 1154.68 FINDINGS: Brain: No acute intracranial hemorrhage. No mass effect. There is stable right anterior frontal encephalomalacia suggestive of postsurgical cavity. Cerebral ventricles: No hydrocephalus. The ventricles and sulci are mildly prominent in size in keeping with mild brain atrophy. Paranasal sinuses: Visualized sinuses are unremarkable. No fluid levels. Mastoid air cells: No mastoid effusion. Bones/joints: Status post frontal craniotomy. No acute fracture. Soft tissues: Unremarkable. CT/CT head wo con* [id number] IMPRESSION: No CT evidence of acute intracranial hemorrhage, mass or acute infarction. Stable postsurgical changes after frontal craniotomy with right anterior frontal encephalomalacia.
--- NOTE | 2022-07-04 12:12 | ED_ITS ---
HPI - Fall General: Chief Complaint: Fall Stated Complaint: HEAD PAIN S/P FALL Time Seen by Provider: 07/04/22 11:50 Source: patient, family and EMS Mode of arrival: EMS Limitations: no limitations History of Present Illness: This lady was transported to our emergency department via EMS from her home. She is here because she had a fall injury at home. She states that she was engage in normal activities of daily living and was reaching overhead looking backwards up to retrieve an object and became dizzy lost her balance and fell. She was observed by her to strike a chair and then fall to the floor. He states that she seemed to be knocked out for anywhere from 1 to 2 minutes or thereabouts. He states that she recovered relatively quickly back to her baseline. There is no seizure activity observed. She sustained an abrasion to her left knee as well as a laceration to her left posterior scalp. She also complained of some discomfort in her right lateral neck. No other injuries claimed at this time. She specifically states there was no prodrome of irregular heartbeat, chest pain etc. She has a history of being on Plavix as a result of peripheral vascular disease as well as having had a Watchman device placed in her atrial appendage. She has a history of atrial fibrillation has had 3 ablations. To reiterate there is no palpitations or other issues at play during this episode this morning. Denies any difficulty with speech, difficulty with movement, headache, change in vision etc. Location of injury: head Location of injury - extremities: Left: knee Associated symptoms-after fall: Reports neck pain; Denies chest pain or headache(s) Review of Systems Const: Denies: fever(s) or chills Eyes: Denies: change in vision ENMT: Denies: odynophagia, tinnitus, disequilibrium, nasal discharge or nasal congestion Card: Denies: chest pain, palpitations, syncope or pre-syncope Resp: Denies: dyspnea, productive cough, non-productive cough or wheezing GI: Denies: nausea or vomiting Musc: Reports: neck pain and joint pain; Denies: back pain, extremity pain or extremity swelling Skin/Breast: Denies: rash or pruritus Neuro: Denies: headache(s), frequent falls, Slurred speech present or seizure- like activity Yovanny/Lymph: Reports: easy bruising PFSH ED PFSH: Medical History Acute kidney injury superimposed on chronic kidney disease Acute on chronic anemia Acute on chronic systolic heart failure Acute renal failure Alcoholism in recovery Anemia Atrial fibrillation Breast CA Breast cancer Cardiac resynchronization therapy defibrillator (SURVEY SUPERINTENDENT-D) in place Cardiomyopathy Carotid stenosis, bilateral CHF (congestive heart failure) Chronic kidney disease Chronic systolic heart failure CKD (chronic kidney disease) Claudication Confusion COPD (chronic obstructive pulmonary disease) CVA (cerebral vascular accident) DJD (degenerative joint disease), lumbar History of gastric ulcer HTN (hypertension) Hypotension ICD (implantable cardioverter-defibrillator) in place Mitral regurgitation Non-ischemic cardiomyopathy Occult blood positive stool Orthostatic dizziness VALE on CPAP Peripheral arterial disease Peripheral vascular disease Pneumonia Presence of Watchman left atrial appendage closure device Presence of Watchman left atrial appendage closure device PUD (peptic ulcer disease) PVCs (premature ventricular contractions) Surgical History History of cardiac radiofrequency ablation History of resection of meningioma Previous back surgery S/P cataract extraction S/P lumpectomy of breast Family History Sister Cancer Social History Smoking and tobacco status: former smoker Alcohol intake: former Other details last alcohol use: recovering alcoholic Household members: spouse Marital status: Physical Exam Narrative: EXAM NARRATIVE: She appears to be in no acute distress, makes good eye contact, speech is goal- directed and fluent. Const: COMMON NORMALS: no acute distress, average body habitus, patient oriented x3, healthy appearing and alert GENERAL APPEARANCE: cooperative and comfortable ORIENTATION/CONSCIOUSNESS: Yes awake, Yes oriented to person and Yes oriented to place HENMT: COMMON NORMALS: normocephalic HEAD & SCALP: normocephalic; no palpable skull fracture HEAD IMAGES: 1. Laceration FACE & SINUS: normal facial exam and face symmetric Eye: COMMON NORMALS: Equal, round and reactive pupils present, EOMs intact bilaterally and conjunctivae normal CONJUNCTIVA: Yes conjunctivae normal PUPIL: Yes Equal, round and reactive pupils present Neck/C-Spine: COMMON NORMALS: full ROM CERVICAL SPINE: Yes cervical ROM normal, No Cervical spine tenderness, No step off deformity and Yes Trapezius muscle tenderness right Chest: COMMONS NORMALS: normal inspection of the chest Resp: COMMON NORMALS: normal respiratory effort, No retractions and clear to auscultation bilaterally AUSCULTATION: clear to auscultation bilaterally Cardio: COMMON NORMALS: No murmurs present (Cardio) and Peripheral pulses 2+ throughout RHYTHM: abnormal rhythm irregularly irregular PERIPHERAL PULSES: Peripheral pulses 2+ throughout GI: COMMON NORMALS: Normal to inspection, nondistended, normoactive bowel sounds present and Soft to palpation PALPATION: Yes Soft to palpation : COMMON NORMALS: Yes no CVA tenderness BLADDER/KIDNEY EXAM: Yes no CVA tenderness Back/Pelvis: COMMON NORMALS: no CVA tenderness, thoracic and lumbar spine normal to inspection, no thoracic nor lumbar tenderness, thoraco-lumbar ROM normal and straight leg raise negative bilaterally Extremity: COMMON NORMALS: capillary refill normal, no calf tenderness and no pedal edema LEFT LOWER EXTREMITY: Yes knee joint (2 cm abrasion medial left knee. No effusion, normal range of motion, no in) Neuro: COMMON NORMALS: patient oriented x3, moves all extremities, no focal motor deficits and no sensory deficits noted SENSORIUM/ORIENTATION: Yes alert, Yes oriented to person and Yes oriented to place CRANIAL NERVES: Yes CN normal except as noted Psych: COMMON NORMALS: mental status grossly normal Skin: COMMON NORMALS: no rashes or lesions noted and turgor normal GENERAL SKIN EXAM: no rashes or lesions noted and turgor normal TRAUMA: laceration (Left occipital) Course Reevaluation(s): Reevaluation #1: Scalp reexamined in the left posterior occiput region after wound cleansing. Appears to be more contused tissue. No laceration or other active bleeding areas noted. No step-offs palpated. Time: 13:54 Vital Signs: Vital signs: Vital Signs Temperature 98.2 F 07/04/22 11:50 Pulse Rate 72 07/04/22 12:36 Respiratory Rate 20 H 07/04/22 12:36 Blood Pressure 134/69 07/04/22 12:36 Pulse Oximetry 97 07/04/22 12:36 Oxygen Delivery Me thod 07/04/22 12:36 MDM - Fall Medical Decision Making This pleasant 76-year-old lady presented to the emergency department because of a ground-level fall at home with striking her head with a brief loss of consciousness. Clinical picture does not suggest syncope or prodrome to her fall. It was provoked by reaching overhead and extension. There was no history of seizures or other post fall concerns. Her evaluation in the emergency department found her to be very alert interactive without any evidence of focal neurologic findings. She had area of contusion to her left posterior occiput without suturable or repairable laceration. She also had an abrasion to her left medial knee. Imaging of head and neck as well as left knee were unremar kable for any acute changes. Repeat examination revealed her to be stable and unchanged. We discussed her presentation and risks of delayed bleeding which are currently estimated to be very low on antiplatelet medications, anticoagulants other than warfarin. I did advise her that to mitigate against any delayed bleeding I recommended against taking her Plavix tonight and tomorrow night and then may she may resume her normal dosing after that. We also discussed reasons to return to the emergency department. She remained clinically stable without any evidence of intracranial hemorrhage, skull fracture, cervical spine fracture, knee bony injury etc. They were appreciative of care. Tetanus was updated. Lab Data I reviewed the patient's lab results. Radiology Impressions Cervical Spine CT 07/04/22 12:10 IMPRESSION: No acute fracture. Degenerative changes in the cervical spine as described. Carotid artery calcifications. 2.5 cm nodule behind the left thyroid lobe with little change in size since 2010 is compatible with benign finding, likely exophytic thyroid nodule. No follow-up imaging is recommended. Head CT 07/04/22 12:10 IMPRESSION: No CT evidence of acute intracranial hemorrhage, mass or acute infarction. Stable postsurgical changes after frontal craniotomy with right anterior frontal encephalomalacia. Imaging Data Xray Ortho: My impression: Left knee appears to be grossly normal of any acute fracture, dislocation etc. Discharge Plan Discharge Patient Disposition: Home Clinical Impression: Fall from ground level, Head injury, closed, with concussion, Scalp contusion, Abrasion of knee, left Condition: Stable Prescriptions: Held clopidogrel 75 mg tablet 75 mg PO QPM Hold Instructions: Resume on 07/06/22. No Action allopurinol 100 mg tablet 100 mg PO QAM ferrous sulfate 325 mg (65 mg iron) tablet 325 mg PO BID magnesium 250 mg tablet 250 mg PO QPM torsemide 20 mg tablet 20 mg PO BID Qty: 180 3RF metoprolol tartrate 25 mg tablet 12.5 mg PO BID acetaminophen 325 mg capsule 650 mg PO BID pantoprazole 40 mg tablet,delayed release (DR/EC) 40 mg PO DAILY Qty: 90 3RF pregabalin [Lyrica] 50 mg capsule 50 mg PO BID Qty: 60 5RF potassium chloride 10 mEq tablet,ER particles/crystals 10 meq PO DAILY Farxiga 10 mg tablet 10 mg PO QAM Discharge Orders: Discharge ED (Routine); Ordered 07/04/22 Ordered By: Bran Brown Referrals: Janie Agustin MD [Primary Care Provider] - Discharge Diet: Usual diet Discharge Activity: Increase activity as tolerated Patient Instructions: Opioid Safety, Pain Management Activity Restrictions/Additional Instructions: As we discussed your radiographic images were reassuring today. We did also discuss that there is a very low risk of delayed bleeding after closed head injury. We recommend not taking her Plavix tonight and tomorrow night and then you may resume usual doses. She is to develop any symptoms such as persistent, worsening headache, nausea vomiting, discoordination or other concerns return to this or the nearest emergency department for reevaluation. You may apply ice to your left knee to help with any swelling or discomfort. Should you have any concerns at any time you are welcome to return for reevaluation. Coding Level of Care Code ED [employer] Pain[employer] Helper for Maday Shi
[2022-07-04 12:36] VITALS: BP 134/69; PULSE 72; RESP 20; O2SAT 97
[2022-07-04] MEDS: tetanus-dipt-pertussis 0.5 mL SDV IM (13:02)
[2022-07-04 14:20] VITALS: BP 134/67; PULSE 71; RESP 17; O2SAT 97
[2022-07-04 15:16] VITALS: BP 134/67; PULSE 70; RESP 20; O2SAT 96
== END 2022-07-04 14:40 | disposition home or self-care (01) ==
PROVIDERS: Emergency Provider Emergency Medicine; PCP Internal Medicine
DX: S06.0XAA Concussion with loss of consciousness status unknown, initial encounter (principal); S00.03XA Contusion of scalp, initial encounter; S80.212A Abrasion, left knee, initial encounter; S01.01XA Laceration without foreign body of scalp, initial encounter; W18.39XA Other fall on same level, initial encounter; Z91.81 History of falling; I13.0 Hypertensive heart and chronic kidney disease with heart failure and stage 1 through stage 4 chronic kidney disease, or unspecified chronic kidney disease; N18.9 Chronic kidney disease, unspecified; I50.23 Acute on chronic systolic (congestive) heart failure; Z85.3 Personal history of malignant neoplasm of breast; J44.9 Chronic obstructive pulmonary disease, unspecified; Z86.73 Personal history of transient ischemic attack (TIA), and cerebral infarction without residual deficits; Z95.810 Presence of automatic (implantable) cardiac defibrillator; Z23 Encounter for immunization
CPT/HCPCS: 70450; 72125; 73562; 90471; 90715; 99284

== ENCOUNTER 2022-07-16 13:58 | Outpatient (CLI) | payer MEDICARE, OTHER, SELFPAY ==
[2022-07-16 15:09] LABS: Blood Urea Nitrogen 57 mg/dL (8-23); Calcium 9.4 mg/dL (8.5-10.5); Carbon Dioxide 29 mmol/L (22-29); Chloride 97 mmol/L (98-107); Glucose 111 mg/dL (65-115); NT Pro B Type Natriuretic Pept 2914 pg/mL (0-450); Osmolality Calculated 307 mOsm/kg (285-295); Sodium 140 mmol/L (136-145)
[2022-07-16 15:14] LABS: Anion Gap 17.4 (5-19); Potassium 3.4 mmol/L (3.5-5.1)
== END 2022-07-16 13:59 | disposition home or self-care (01) ==
LOC: LAB 14:02
PROVIDERS: PCP Internal Medicine; Visit Provider Nurse Practitioner Adult Health
DX: I50.22 Chronic systolic (congestive) heart failure (principal); I48.91 Unspecified atrial fibrillation; I10 Essential (primary) hypertension
CPT/HCPCS: 80048; 83880

== ENCOUNTER 2022-08-07 11:17 | Outpatient (CLI) | payer MEDICARE, OTHER, SELFPAY ==
[2022-08-07 12:19] LABS: Blood Urea Nitrogen 57 mg/dL (8-23); Calcium 9.3 mg/dL (8.5-10.5); Carbon Dioxide 27 mmol/L (22-29); Chloride 97 mmol/L (98-107); Glucose 94 mg/dL (65-115); NT Pro B Type Natriuretic Pept 3519 pg/mL (0-450); Osmolality Calculated 306 mOsm/kg (285-295); Sodium 140 mmol/L (136-145)
[2022-08-07 12:26] LABS: Anion Gap 19.4 (5-19); Potassium 3.4 mmol/L (3.5-5.1)
== END 2022-08-07 11:18 | disposition home or self-care (01) ==
LOC: LAB 11:21
PROVIDERS: PCP Internal Medicine; Visit Provider Nurse Practitioner Adult Health
DX: I50.22 Chronic systolic (congestive) heart failure (principal)
CPT/HCPCS: 80048; 83880

== ENCOUNTER 2022-08-19 14:33 | Outpatient (CLI) | payer MEDICARE, OTHER, SELFPAY ==
--- NOTE | 2022-08-19 14:41 | MM_ITS ---
WS: [id number] BILATERAL 3D TOMOSYNTHESIS DIGITAL DIAGNOSTIC MAMMOGRAPHY WITH CAD CLINICAL INFORMATION: HX OF BREAST CA HISTORY: COMPARISON: August 15, 2021 TECHNIQUE: Bilateral CC, MLO, and ML views. FINDINGS: Scattered fibroglandular densities bilaterally. Punctate and lucent centered calcifications. Dystroph ic calcifications. RIGHT lumpectomy with parenchymal scarring. Treatment-related changes RIGHT breast . Biopsy clip lateral RIGHT breast. Volume loss RIGHT breast. No suspicious focal mass, asymmetry, calcifications, or architectural distortion. No evidence of svitlana gnancy. MM/[place] [id number] IMPRESSION: BI-RADS: 2-Benign FOLLOW UP: 1 Year Follow-up Recommend return to annual diagnostic mammography.
== END 2022-08-19 14:34 | disposition home or self-care (01) ==
PROVIDERS: PCP Internal Medicine; Visit Provider Internal Medicine
DX: Z85.3 Personal history of malignant neoplasm of breast (principal)
CPT/HCPCS: 77062; G0279

== ENCOUNTER 2022-08-25 12:36 | Oncology outpatient (recurring) (ONCR) | payer MEDICARE, OTHER, SELFPAY ==
[2022-08-25 13:17] LABS: Basophils % 0.6 %; Eosinophils # 0.1 10^3/uL (0.0-0.8); Hematocrit 42.7 % (37.0-47.0); Hemoglobin 13.6 g/dL (11.5-15.3); Lymphocytes # 0.8 10^3/uL (0.8-4.8); Lymphocytes % 16.3 %; Mean Corpuscular HGB Conc 31.9 g/dL (30.0-36.0); Mean Corpuscular Hemoglobin 30.6 pg (28.0-34.0); Mean Corpuscular Volume 96.2 fl (81-99); Mean Platelet Volume 11.3 fL (7.4-10.4); Monocytes # 0.5 10^3/uL (0.2-0.9); Monocytes % 9.9 %; Neutrophils # 3.25 10^3/uL (1.8-7.7); Neutrophils % 69.8 %; Nucleated Red Blood Cells % 0 %; Platelet Count 181 10^3/cmm (130-400); Red Blood Count 4.44 10^6/uL (4.1-5.3); Red Cell Distribution Width 16.4 % (12.1-15.1); White Blood Count 4.7 10^3/uL (4.0-10.0)
[2022-08-25 13:36] LABS: Alanine Aminotransferase 11 U/L (0-33); Albumin Level 3.6 g/dL (3.5-5.2); Alkaline Phosphatase 158 U/L (35-105); Anion Gap 17.9 (5-19); Aspartate Amino Transferase 19 U/L (0-32); Blood Urea Nitrogen 52 mg/dL (8-23); Calcium 8.8 mg/dL (8.5-10.5); Carbon Dioxide 24 mmol/L (22-29); Chloride 104 mmol/L (98-107); Globulin 2.9 g/dL (1.3-4.6); Glucose 104 mg/dL (65-115); Osmolality Calculated 308 mOsm/kg (285-295); Potassium 3.9 mmol/L (3.5-5.1); Sodium 142 mmol/L (136-145); Total Bilirubin 0.5 mg/dL (0.15-1.2); Total Protein 6.5 g/dL (6.6-8.7)
== END 2022-09-20 23:59 | disposition home or self-care (01) ==
PROVIDERS: PCP Internal Medicine; Visit Provider Internal Medicine Hematology & Oncology
DX: Z08 Encounter for follow-up examination after completed treatment for malignant neoplasm (principal); Z85.3 Personal history of malignant neoplasm of breast; D50.9 Iron deficiency anemia, unspecified; M81.0 Age-related osteoporosis without current pathological fracture; M19.072 Primary osteoarthritis, left ankle and foot; R74.8 Abnormal levels of other serum enzymes; Z79.899 Other long term (current) drug therapy; Z92.21 Personal history of antineoplastic chemotherapy; Z92.3 Personal history of irradiation; Z87.891 Personal history of nicotine dependence
CPT/HCPCS: 36415; 80053; 85025; 99214

== ENCOUNTER 2022-09-04 08:01 | Outpatient (CLI) | payer MEDICARE, OTHER, SELFPAY ==
--- NOTE | 2022-09-04 08:08 | NM_ITS ---
WS: [id number] NUCLEAR MEDICINE BONE SCAN Radiopharmaceutical: 24.9 Tc-99m MDP mCi IV Injection site: antecubital Postinjection imaging delay: 1 hr CLINICAL INFORMATION: follow up COMPARISON: August 25, 2016 FINDINGS: Prior postoperative changes frontal craniotomy. Focal radiotracer uptake near the RIGHT mastoid. This can be further evaluated with head CT. This is nonspecific. Degenerative type uptake both knees and both ankles. Degenerative type uptake in both AC joints. Thoracolumbar curve. Focal uptake in the upper thoracic vertebral body approximately T2 and upper lum bar vertebral body approximately L1. Patchy uptake in the LEFT mid lumbar spine L2 and L3. Differenti al considerations include degenerative change or compression fractures but metastatic disease not exc luded. NM/NM bone scan whole body* [id number] IMPRESSION: 1. Focal nonspecific uptake in the upper thoracic vertebral body approximately T2 and upper lumbar vertebral body approximately L1. Patchy uptake in the LEFT mid lumbar spine L2 and L3. Recommend further evaluation with thoracic and lum bar spine MRI. 2. Prior postoperative changes frontal craniotomy. Focal radiotracer uptake ne ar the RIGHT mastoid. This can be further evaluated with head CT. This is nonsp ecific. 3. No other suspicious findings.
== END 2022-09-04 08:02 | disposition home or self-care (01) ==
LOC: RAD 08:03
PROVIDERS: PCP Internal Medicine; Visit Provider Internal Medicine Hematology & Oncology
DX: Z85.3 Personal history of malignant neoplasm of breast (principal)
CPT/HCPCS: 78306; A9561

== ENCOUNTER 2022-09-27 13:18 | Emergency (ER) | payer MEDICARE, OTHER, SELFPAY ==
[2022-09-27 13:31] VITALS: BP 109/72; PULSE 77; RESP 17; TEMP 36.6; O2SAT 94; BMI 30.9
[2022-09-27 13:36] VITALS: BP 109/72; PULSE 70; RESP 16; O2SAT 94
[2022-09-27 13:57] LABS: Basophils % 0.5 %; Eosinophils # 0.1 10^3/uL (0.0-0.8); Eosinophils % 2.1 %; Hematocrit 41.1 % (37.0-47.0); Hemoglobin 13.3 g/dL (11.5-15.3); Lymphocytes # 0.8 10^3/uL (0.8-4.8); Lymphocytes % 12.4 %; Mean Corpuscular HGB Conc 32.4 g/dL (30.0-36.0); Mean Corpuscular Hemoglobin 30.8 pg (28.0-34.0); Mean Corpuscular Volume 95.1 fl (81-99); Mean Platelet Volume 11.2 fL (7.4-10.4); Monocytes # 0.5 10^3/uL (0.2-0.9); Monocytes % 7.4 %; Neutrophils # 4.66 10^3/uL (1.8-7.7); Neutrophils % 77.1 %; Nucleated Red Blood Cells % 0 %; Platelet Count 220 10^3/cmm (130-400); Red Blood Count 4.32 10^6/uL (4.1-5.3); Red Cell Distribution Width 15.2 % (12.1-15.1); White Blood Count 6.1 10^3/uL (4.0-10.0)
[2022-09-27 14:07] VITALS: PULSE 72; RESP 18; O2SAT 95
[2022-09-27 14:28] LABS: Alanine Aminotransferase 10 U/L (0-33); Albumin Level 3.9 g/dL (3.5-5.2); Alkaline Phosphatase 144 U/L (35-105); Aspartate Amino Transferase 17 U/L (0-32); Blood Urea Nitrogen 78 mg/dL (8-23); Carbon Dioxide 27 mmol/L (22-29); Chloride 95 mmol/L (98-107); Globulin 2.9 g/dL (1.3-4.6); Glucose 137 mg/dL (65-115); Magnesium 2.9 mg/dL (1.7-2.3); Osmolality Calculated 313 mOsm/kg (285-295); Phosphorus 4.7 mg/dL (2.5-4.5); Sodium 139 mmol/L (136-145); Total Bilirubin 0.6 mg/dL (0.15-1.2); Total Protein 6.8 g/dL (6.6-8.7)
--- NOTE | 2022-09-27 15:26 | W.ED.FEMALGU ---
HPI - Female Genitourinary General: Chief complaint: Urogenital-Female Stated complaint: kidn. disease no urination in 24 hrs on diuretics Time Seen by Provider: 09/27/22 13:38 History of Present Illness: Patient presents to the ER with complaints of no urination in 24 hours. Patient says she normally gets up 2-3 times in the middle the night to urinate due to her twice a day diuretic usage but last night she did not get up at all until 7:00 this morning and then she only urinated a small amount. Patient thinks she may be in renal failure as she has had this happen to her in the past. Patient has no other complaints at this time MD elicited complaint: other (Urinating less than normal) Onset (ago): day(s) (Last night) Exacerbating factors: none Relieving factors: none Associated symptoms: Reports no associated symptoms; Deny abdominal pain or nausea Review of Systems General: Reports: 10 or more systems reviewed and unremarkable except in HPI and below Const: Denies: fever(s) or chills Eyes: Denies: change in vision or blurry vision ENMT: Denies: throat pain or odynophagia Card: Denies: chest pain or edema Resp: Denies: dyspnea or non-productive cough GI: Denies: abdominal pain, nausea, vomiting or hematemesis : Denies: flank pain Musc: Denies: neck pain or back pain PFS ED PFSH: Medical History Acute kidney injury superimposed on chronic kidney disease Acute on chronic anemia Acute on chronic systolic heart failure Acute renal failure Alcoholism in recovery Anemia Atrial fibrillation Breast CA Breast cancer Breast cancer Cardiac resynchronization therapy defibrillator (AUTO FLEET MAINTENANCE MANAGER-D) in place Cardiomyopathy Carotid stenosis, bilateral CHF (congestive heart failure) Chronic kidney disease Chronic systolic heart failure CKD (chronic kidney disease) Claudication Confusion COPD (chronic obstructive pulmonary disease) CVA (cerebral vascular accident) DJD (degenerative joint disease), lumbar History of gastric ulcer HTN (hypertension) Hypotension ICD (implantable cardioverter-defibrillator) in place Iron deficiency anemia Mitral regurgitation Non-ischemic cardiomyopathy Occult blood positive stool Orthostatic dizziness VALE on CPAP Peripheral arterial disease Peripheral vascular disease Pneumonia Presence of Watchman left atrial appendage closure device Presence of Watchman left atrial appendage closure device PUD (peptic ulcer disease) PVCs (premature ventricular contractions) Surgical History History of cardiac radiofrequency ablation History of resection of meningioma Previous back surgery S/P cataract extraction S/P lumpectomy of breast Family History Sister Cancer Social History Smoking and tobacco status: former smoker Alcohol intake: former Other details last alcohol use: recovering alcoholic Substance/Drug Use: never Household members: spouse Marital status: Physical Exam Const: COMMON NORMALS: no acute distress, average body habitus, patient oriented x3, no limitations, healthy appearing, alert and well nourished HENMT: COMMON NORMALS: normocephalic, atraumatic, hearing grossly normal bilaterally, external ears normal, Normal external nose present and moist oral mucous membranes HEAD & SCALP: normocephalic and atraumatic NOSE: Normal external nose present EXTERNAL EAR: Yes external ears normal Eye: COMMON NORMALS: Equal, round and reactive pupils present, EOMs intact bilaterally, conjunctivae normal and no scleral icterus CONJUNCTIVA: Yes conjunctivae normal PUPIL: Yes Equal, round and reactive pupils present Neck/C-Spine: COMMON NORMALS: full ROM, no lymphadenopathy, supple, no meningeal signs, no JVD and Thyroid normal THYROID: Thyroid normal Lymph: LYMPHATIC: no lymphadenopathy noted Chest: COMMONS NORMALS: normal inspection of the chest and normal palpation of entire chest wall Resp: COMMON NORMALS: normal respiratory effort, No retractions, No use of accessory muscles and clear to auscultation bilaterally AUSCULTATION: clear to auscultation bilaterally Cardio: COMMON NORMALS: no JVD, regular rate, regular rhythm, S1 normal heart sound present and S2 normal heart sound present RATE: regular rate RHYTHM: regular rhythm HEART SOUNDS: S1 normal heart sound present and S2 normal heart sound present GI: COMMON NORMALS: Normal to inspection, nondistended, normoactive bowel sounds present, Soft to palpation, non-tender, No hepatosplenomegaly present and no masses PALPATION: Yes Soft to palpation and Yes No hepatosplenomegaly present Neuro: COMMON NORMALS: patient oriented x3 SENSORIUM/ORIENTATION: Yes alert MENINGEAL SIGNS: Yes no meningeal signs Course Vital Signs: Vital signs: Vital Signs Temperature 97.9 F 09/27/22 13:31 Pulse Rate 72 09/27/22 14:07 Respiratory Rate 18 09/27/22 14:07 Blood Pressure 109/72 09/27/22 13:36 Pulse Oximetry 95 09/27/22 14:07 Oxygen Delivery Me thod Room Air 09/27/22 14:07 MDM - Female Medical Decision Making Patient presents the ER with complaints of urinating a lot less than normal. Patient does have a history of renal failure, CHF and is on 2 diuretics twice a day. Patient has no other complaints at this time. Lab work was obtained which showed a normal white count, metabolic panel showed potassium of 3.0 as well as BUN/creatinine of 78 and 2.0 which is only slightly higher than what with the patient normally runs. Patient states this is nothing she has been higher. Patient was instructed on these labs and need to follow-up to make for sure that they do not worsen. Patient is going out of town in approximately 1 week. Patient should follow-up with her PCP in approximately 3 to 5 days to at least have a BMP rechecked. Patient understands this and will be discharged home. Differential Diagnosis Unlikely abdominal pain, acute appendicitis, constipation, diverticulitis, pancreatitis or small bowel obstruction Medical Records I reviewed the patient's medical records. Lab Data I reviewed the patient's lab results. 09/27/22 13:50 09/27/22 13:50 Laboratory Results WBC 6.1 10^3/uL (4.0-10.0) 09/27/22 13:50 RBC 4.32 10^6/uL (4.1-5.3) 09/27/22 13:50 Hgb 13.3 g/dL (11.5-15.3) 09/27/22 13:50 Hct 41.1 % (37.0-47.0) 09/27/22 13:50 MCV 95.1 fl (81-99) 09/27/22 13:50 MCH 30.8 pg (28.0-34.0) 09/27/22 13:50 MCHC 32.4 g/dL (30.0-36.0) 09/27/22 13:50 RDW 15.2 % (12.1-15.1) H 09/27/22 13:50 Plt Count 220 10^3/cmm (130-400) 09/27/22 13:50 MPV 11.2 fL (7.4-10.4) H 09/27/22 13:50 Neut % (Auto) 77.1 % 09/27/22 13:50 Lymph % (Auto) 12.4 % 09/27/22 13:50 Fleming % (Auto) 7.4 % 09/27/22 13:50 Eos % (Auto) 2.1 % 09/27/22 13:50 Baso % (Auto) 0.5 % 09/27/22 13:50 Neut # (Auto) 4.66 10^3/uL (1.8-7.7) 09/27/22 13:50 Lymph # (Auto) 0.8 10^3/uL (0.8-4.8) 09/27/22 13:50 Fleming # (Auto) 0.5 10^3/uL (0.2-0.9) 09/27/22 13:50 Eos # (Auto) 0.1 10^3/uL (0.0-0.8) 09/27/22 13:50 Baso # (Auto) 0.0 10^3/uL (0.0-0.1) 09/27/22 13:50 Nucleated RBC % (auto) 0 % 09/27/22 13:50 Nucleated RBCs # 0.0 /100WBC 09/27/22 13:50 Sodium 139 mmol/L (136-145) 09/27/22 13:50 Potassium 3.0 mmol/L (3.5-5.1) L 09/27/22 13:50 Chloride 95 mmol/L (98-107) L 09/27/22 13:50 Carbon Dioxide 27 mmol/L (22-29) 09/27/22 13:50 Anion Gap 20.0 (5-19) H 09/27/22 13:50 BUN 78 mg/dL (8-23) H 09/27/22 13:50 Creatinine 2.0 mg/dL (0.5-0.9) H 09/27/22 13:50 GFR Calculation Not Reportable 09/27/22 13:50 Glucose 137 mg/dL (65-115) H 09/27/22 13:50 Calculated Osmolality 313 mOsm/kg (285-295) H 09/27/22 13:50 Calcium 9.0 mg/dL (8.5-10.5) 09/27/22 13:50 Phosphorus 4.7 mg/dL (2.5-4.5) H 09/27/22 13:50 Magnesium 2.9 mg/dL (1.7-2.3) H 09/27/22 13:50 Total Bilirubin 0.6 mg/dL (0.15-1.2) 09/27/22 13:50 AST 17 U/L (0-32) 09/27/22 13:50 ALT 10 U/L (0-33) 09/27/22 13:50 Alkaline Phosphatase 144 U/L (35-105) H 09/27/22 13:50 Total Protein 6.8 g/dL (6.6-8.7) 09/27/22 13:50 Albumin 3.9 g/dL (3.5-5.2) 09/27/22 13:50 Globulin 2.9 g/dL (1.3-4.6) 09/27/22 13:50 Discharge Plan Discharge Patient Disposition: Home Clinical Impression: Hypokalemia, BJ (acute kidney injury), CHF (congestive heart failure) Condition: Stable Prescriptions: No Action allopurinol 100 mg tablet 100 mg PO QAM ferrous sulfate 325 mg (65 mg iron) tablet 325 mg PO BID magnesium 250 mg tablet 250 mg PO QPM metoprolol tartrate 25 mg tablet 12.5 mg PO BID metolazone 2.5 mg tablet 2.5 mg PO .COMPLEX Rx Instructions: 2.5 mg orally as directed; acetaminophen 325 mg capsule 650 mg PO BID pantoprazole 40 mg tablet,delayed release (DR/EC) 40 mg PO DAILY Qty: 90 3RF pregabalin [Lyrica] 50 mg capsule 50 mg PO BID Qty: 60 5RF clopidogrel 75 mg tablet 75 mg PO QPM Qty: 90 3RF Hold Instructions: Resume on 07/06/22. potassium chloride 10 mEq tablet,ER particles/crystals 10 meq PO DAILY Farxiga 10 mg tablet 10 mg PO QAM torsemide 20 mg tablet See Rx Instructions .ROUTE .COMPLEX Rx Instructions: 40 mg orally in the morning / 20 mg orally in the evening Mexitil 150 mg Capsule 150 mg PO BID Discharge Orders: Discharge ED (Routine); Ordered 09/27/22 Ordered By: John Barba Referrals: Janie Agustin MD [Primary Care Provider] - 1 week Patient Instructions: Hypokalemia (ED), Heart Failure (DC), Impaired Kidney Function (ED) Activity Restrictions/Additional Instructions: Please follow-up with your primary care physician within the next 1 week. Please have labs drawn to recheck your BUN and creatinine. Coding Level of Care Code ED Hunter Trapper for Maday Shi
[2022-09-27 15:39] VITALS: BP 122/70; PULSE 83; RESP 19; O2SAT 96
== END 2022-09-27 15:40 | disposition home or self-care (01) ==
PROVIDERS: Emergency Provider Emergency Medicine; PCP Internal Medicine
DX: E87.6 Hypokalemia (principal); N17.9 Acute kidney failure, unspecified; Z79.02 Long term (current) use of antithrombotics/antiplatelets; I13.0 Hypertensive heart and chronic kidney disease with heart failure and stage 1 through stage 4 chronic kidney disease, or unspecified chronic kidney disease; N18.9 Chronic kidney disease, unspecified; I50.9 Heart failure, unspecified; Z85.3 Personal history of malignant neoplasm of breast; J44.9 Chronic obstructive pulmonary disease, unspecified; Z86.73 Personal history of transient ischemic attack (TIA), and cerebral infarction without residual deficits; Z95.810 Presence of automatic (implantable) cardiac defibrillator; Z87.891 Personal history of nicotine dependence
CPT/HCPCS: 51798; 80053; 83735; 84100; 85025; 99283

== ENCOUNTER 2022-11-05 07:41 | Oncology outpatient (recurring) (ONCR) | payer MEDICARE, OTHER, SELFPAY ==
[2022-11-05 07:32] VITALS: BP 116/71; PULSE 70; RESP 18; TEMP 35.8; O2SAT 95
[2022-11-05 07:54] LABS: Basophils % 0.7 %; Eosinophils # 0.2 10^3/uL (0.0-0.8); Hematocrit 44.2 % (37.0-47.0); Hemoglobin 14.1 g/dL (11.5-15.3); Lymphocytes # 0.8 10^3/uL (0.8-4.8); Lymphocytes % 14.1 %; Mean Corpuscular HGB Conc 31.9 g/dL (30.0-36.0); Mean Corpuscular Hemoglobin 30.7 pg (28.0-34.0); Mean Corpuscular Volume 96.3 fl (81-99); Mean Platelet Volume 10.6 fL (7.4-10.4); Monocytes # 0.6 10^3/uL (0.2-0.9); Monocytes % 11.1 %; Neutrophils # 3.81 10^3/uL (1.8-7.7); Neutrophils % 70.7 %; Nucleated Red Blood Cells % 0 %; Platelet Count 182 10^3/cmm (130-400); Red Blood Count 4.59 10^6/uL (4.1-5.3); Red Cell Distribution Width 15.3 % (12.1-15.1); White Blood Count 5.4 10^3/uL (4.0-10.0)
[2022-11-05 08:20] LABS: Alanine Aminotransferase 11 U/L (0-33); Albumin Level 3.9 g/dL (3.5-5.2); Alkaline Phosphatase 142 U/L (35-105); Anion Gap 15.5 (5-19); Aspartate Amino Transferase 22 U/L (0-32); Blood Urea Nitrogen 50 mg/dL (8-23); Calcium 9.4 mg/dL (8.5-10.5); Carbon Dioxide 26 mmol/L (22-29); Chloride 102 mmol/L (98-107); Globulin 2.8 g/dL (1.3-4.6); Glucose 88 mg/dL (65-115); Osmolality Calculated 303 mOsm/kg (285-295); Potassium 3.5 mmol/L (3.5-5.1); Sodium 140 mmol/L (136-145); Total Bilirubin 0.7 mg/dL (0.15-1.2); Total Protein 6.7 g/dL (6.6-8.7)
== END 2022-11-20 23:59 | disposition home or self-care (01) ==
PROVIDERS: PCP Internal Medicine; Visit Provider Internal Medicine Hematology & Oncology
DX: Z08 Encounter for follow-up examination after completed treatment for malignant neoplasm (principal); Z85.3 Personal history of malignant neoplasm of breast; D50.9 Iron deficiency anemia, unspecified; M81.0 Age-related osteoporosis without current pathological fracture; M19.072 Primary osteoarthritis, left ankle and foot; R74.8 Abnormal levels of other serum enzymes; Z79.899 Other long term (current) drug therapy; Z92.21 Personal history of antineoplastic chemotherapy; Z92.3 Personal history of irradiation; Z87.891 Personal history of nicotine dependence
CPT/HCPCS: 36415; 80053; 85025; 99214

== ENCOUNTER 2022-11-06 12:44 | Outpatient (CLI) | payer MEDICARE, OTHER, SELFPAY ==
--- NOTE | 2022-11-06 12:53 | USCV_ITS ---
Teena Timmons Age: 76 Gender: F : 1945 Exam Date: 11/06/2022 13:24 Ordering Phys: Cindy Limon XX Technologist: CT Exam Location: [facility] [place] Indication: ef, sob BP: 130 / 65 HR: 76 Rhythm: Sinus Technical Quality: Adequate MEASUREMENTS (Male / Female) Normal Values 2D ECHO LV Diastolic Diameter PLAX 5.1 cm 4.2 - 5.9 / 3.9 - 5.3 cm LV Systolic Diameter PLAX 3.9 cm LV Chamber Size 5.6 cm IVS Diastolic Thickness 1.2 cm 0.6 - 1.0 / 0.6 - 0.9 cm IVS Systolic Thickness 1.4 cm LVPW Diastolic Thickness 1.3 cm 0.6 - 1.0 / 0.6 - 0.9 cm LVPW Systolic Thickness 2.1 cm RV Chamber Size 5.0 cm LVOT Diameter 2.0 cm LV Ejection Fraction 2D Teich 36.1 % LV Ejection Fraction MOD 2C 51.2 % LV Ejection Fraction 2C AL 51.4 % LA Diameter 6.2 cm LA Width 5.1 cm LA Height 8.2 cm RA Width 6.0 cm RA Height 8.2 cm Aorta at Sinotubular Diameter 2.1 cm IVC Diameter 2.3 cm M-MODE Aortic Annulus Diameter 3.1 cm LA Ao Ratio MM 2.1 MV E Point Septal Separation 1.4 cm DOPPLER AV Peak Velocity 146.0 cm/s LVOT Peak Velocity 63.0 cm/s AV Area Cont Eq vti 2.0 cm squared AV Area Cont Eq pk 1.4 cm squared MV Peak Velocity 123.0 cm/s MV Area PHT 5.5 cm squared Mitral E to A Ratio 120.9 MV E' Velocity 51.5 cm/s Mitral E to MV E' Ratio 12.7 Mitral E to LV E' Lateral Ratio 15.6 Mitral E to LV E' Septal Ratio 10.9 TR Peak Velocity 276.5 cm/s TR Peak Gradient 30.6 mmHg TR Mean Velocity 206.3 cm/s TR Mean Gradient 19.6 mmHg TR Velocity Time Integral 56.7 cm TV Peak E Velocity 81.0 cm/s Right Atrial Pressure 8.0 mmHg Pulmonary Artery Systolic Pressu 38.6 mmHg FINDINGS Left Ventricle Moderate LV dysfunction with global hypokinesis and EF about 40%. There is a restrictive filling pattern. LV mildly dilated Right Ventricle Normal in size and function. There is a pacemaker wire seen Right Atrium Mildly dilated Left Atrium Moderate to severe dilation Mitral Valve Thickened but opens adequately no significant stenosis there is moderate to severe mitral regurgitation Aortic Valve Thickened but opens adequately no significant aortic stenosis or aortic insufficiency Tricuspid Valve Structurally normal with mild to moderate tricuspid regurgitation Pulmonic Valve No significant pulmonic stenosis or pulmonic insufficiency Pericardium Normal with no evidence of effusion Aorta Normal IVC Mildly dilated with normal respiratory pattern CONCLUSIONS Moderate LV dysfunction with EF about 40%. Moderate to severe mitral regurgitation Carolina Mckeon MD (Electronically Signed) Final Date: 07 November 2022 11:36 S
== END 2022-11-06 12:45 | disposition home or self-care (01) ==
PROVIDERS: PCP Internal Medicine; Visit Provider Nurse Practitioner Adult Health
DX: I50.22 Chronic systolic (congestive) heart failure (principal); I34.0 Nonrheumatic mitral (valve) insufficiency
CPT/HCPCS: 93306

== ENCOUNTER 2022-11-10 15:23 | Emergency (ER) | payer MEDICARE, OTHER, SELFPAY ==
[2022-11-10 15:35] VITALS: BP 112/67; PULSE 69; RESP 18; TEMP 36.7; O2SAT 98
--- NOTE | 2022-11-10 15:39 | XR_ITS ---
WS: [id number] EXAMINATION: XR knee RT 3V* [id number] REASON FOR EXAM: fall with knee pain and bruising COMPARISON: None available. ORDER DATE: 11/10/2022 3:44 PM FINDINGS: There are marginal osteophytes associated with the tibial spines, patella and other articular margins with moderate medial and severe patellofemoral compartment narrowing. There is no sign of any acute fracture or dislocation. A small joint effusion cannot be excluded but there is no evidence of any la rge effusion there may be some nonspecific edema in the region of the prepatellar bursa and/or patell ar tendon. XR/XR knee RT 3V* [id number] IMPRESSION: MEDIAL AND PATELLOFEMORAL COMPARTMENT NARROWING WITH OSTEOARTHRITIC CHANGES. POSSIBLE PATELLAR TENDON TENDINOPATHY AND/OR PREPATELLAR BURSITIS.
--- NOTE | 2022-11-10 16:41 | W.ED.FALL ---
HPI - Fall General: Chief Complaint: Fall Stated Complaint: Fall, Right pain Time Seen by Provider: 11/10/22 15:40 History of Present Illness: Patient is a 77-year-old female comes to the ED with fall and right knee pain. Fall occurred 8 days ago. Patient states that she tripped over an object in her house then fell down where her right knee hit the ground. She denies any head trauma or loss of consciousness. She states that she just went down to her knees and her whole body did not go all the way down to the ground. Patient does take Plavix. She endorses having very mild pain and rates it a 1 out of 10. She has ecchymosis and some swelling around the knee. She went and saw all her primary care doctor who told her she should come and get it looked at. She is able to walk on leg with no pain or limping. Associated symptoms-after fall: Denies abdominal pain, chest pain, headache(s), hematuria or neck pain Review of Systems Const: Denies: fever(s), chills or fatigue Eyes: Denies: change in vision or eye discomfort ENMT: Denies: throat pain, odynophagia, nasal discharge or nasal congestion Card: Denies: chest pain, palpitations, edema, swelling of feet/ankles, dyspnea on exertion or orthopnea Resp: Denies: dyspnea, productive cough or non-productive cough GI: Denies: abdominal pain, nausea, vomiting, diarrhea, constipation or hematochezia : Denies: flank pain, dysuria or hematuria Musc: Reports: extremity pain (Right knee pain) and extremity swelling (Right knee); Denies: neck pain or back pain Skin/Breast: Denies: rash or new lesions Neuro: Denies: headache(s), numbness in extremities or weakness in extremities PFS ED PFSH: Medical History Acute kidney injury superimposed on chronic kidney disease Acute on chronic anemia Acute on chronic systolic heart failure Acute renal failure Alcoholism in recovery Anemia Atrial fibrillation Breast CA Breast cancer Breast cancer Cardiac resynchronization therapy defibrillator (NUT AND BOLT 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-D) in place Cardiomyopathy Carotid stenosis, bilateral CHF (congestive heart failure) Chronic kidney disease Chronic systolic heart failure CKD (chronic kidney disease) Claudication Confusion COPD (chronic obstructive pulmonary disease) CVA (cerebral vascular accident) DJD (degenerative joint disease), lumbar History of gastric ulcer HTN (hypertension) Hypotension ICD (implantable cardioverter-defibrillator) in place Iron deficiency anemia Mitral regurgitation Non-ischemic cardiomyopathy Occult blood positive stool Orthostatic dizziness VALE on CPAP Peripheral arterial disease Peripheral vascular disease Pneumonia Presence of Watchman left atrial appendage closure device Presence of Watchman left atrial appendage closure device PUD (peptic ulcer disease) PVCs (premature ventricular contractions) Surgical History History of cardiac radiofrequency ablation History of resection of meningioma Previous back surgery S/P cataract extraction S/P lumpectomy of breast Family History Sister Cancer Social History Smoking and tobacco status: former smoker Alcohol intake: former Other details last alcohol use: recovering alcoholic Substance/Drug Use: never Household members: spouse Marital status: Physical Exam Const: COMMON NORMALS: patient oriented x3 HENMT: COMMON NORMALS: normocephalic HEAD & SCALP: normocephalic MOUTH: Normal oral and palatal mucosa present THROAT: posterior oropharynx normal and uvula midline Neck/C-Spine: COMMON NORMALS: supple GENERAL: Yes normal visual inspection Resp: COMMON NORMALS: normal respiratory effort, No retractions, No use of accessory muscles and clear to auscultation bilaterally AUSCULTATION: clear to auscultation bilaterally Cardio: COMMON NORMALS: regular rate, regular rhythm, S1 normal heart sound present, S2 normal heart sound present, No gallops present (Cardio), No clicks present (Cardio), No murmurs present (Cardio) and Peripheral pulses 2+ throughout RATE: regular rate RHYTHM: regular rhythm HEART SOUNDS: S1 normal heart sound present and S2 normal heart sound present PERIPHERAL PULSES: Peripheral pulses 2+ throughout GI: COMMON NORMALS: Normal to inspection, nondistended, normoactive bowel sounds present, Soft to palpation, non-tender and no masses PALPATION: Yes Soft to palpation : COMMON NORMALS: Yes no CVA tenderness BLADDER/KIDNEY EXAM: Yes no CVA tenderness Back/Pelvis: COMMON NORMALS: no CVA tenderness Extremity: NARRATIVE EXTREMITY EXAM: Right knee?ecchymosis and swelling noted. Minimal tenderness over patella region but no other tenderness throughout the knee. Full range of motion. No tenderness to to distal aspect of leg or foot. No concerns for any compartment syndrome. No calf tenderness. Neuro: COMMON NORMALS: patient oriented x3 GAIT: Yes Normal gait present Skin: GENERAL SKIN EXAM: dry skin Course Vital Signs: Vital signs: Vital Signs Temperature 98.1 F 11/10/22 15:35 Pulse Rate 69 11/10/22 15:35 Respiratory Rate 18 11/10/22 15:35 Blood Pressure 112/67 11/10/22 15:35 Pulse Oximetry 98 11/10/22 15:35 Oxygen Delivery Me thod Room Air 11/10/22 15:35 MDM - Fall Medical Decision Making Patient is a 77-year-old female comes to the ED with fall and right knee pain. Fall occurred 8 days ago. Patient states that she tripped over an object in her house then fell down where her right knee hit the ground. She denies any head trauma or loss of consciousness. She states that she just went down to her knees and her whole body did not go all the way down to the ground. Patient does take Plavix. She endorses having very mild pain and rates it a 1 out of 10. She has ecchymosis and some swelling around the knee. She went and saw all her primary care doctor who told her she should come and get it looked at. She is able to walk on leg with no pain or limping. Right knee?ecchymosis and swelling noted. Minimal tenderness over patella region but no other tenderness throughout the knee. Full range of motion. No tenderness to to distal aspect of leg or foot. No concerns for any compartment syndrome. No calf tenderness. Right knee x-ray shows no acute fractures but did note some osteoarthritic changes. Patient was diagnosed with contusion of right knee and was stable for discharge home. Patient says she already has a follow-up appointment with a orthopedic surgeon for her knee that was previously scheduled. Return to ED precautions given. Patient understood and agreed with plan. Lab Data Radiology Impressions Knee X-Ray 11/10/22 15:39 IMPRESSION: MEDIAL AND PATELLOFEMORAL COMPARTMENT NARROWING WITH OSTEOARTHRITIC CHANGES. POSSIBLE PATELLAR TENDON TENDINOPATHY AND/OR PREPATELLAR BURSITIS. Discharge Plan Discharge Patient Disposition: Home Clinical Impression: Contusion of knee, right Qualifiers: Encounter type: initial encounter Qualified Code(s): S80.01XA - Contusion of right knee, initial encounter Condition: Stable Prescriptions: No Action allopurinol 100 mg tablet 100 mg PO BID ferrous sulfate 325 mg (65 mg iron) tablet 325 mg PO BID magnesium 250 mg tablet 250 mg PO QPM metoprolol tartrate 25 mg tablet 25 mg PO BID metolazone 2.5 mg tablet 2.5 mg PO .COMPLEX Rx Instructions: 2.5 mg orally as directed; acetaminophen 325 mg capsule 650 mg PO BID famotidine [Pepcid] 40 mg tablet 40 mg PO BID 5 Days Qty: 10 0RF pantoprazole 40 mg tablet,delayed release (DR/EC) 40 mg PO DAILY Qty: 90 3RF pregabalin [Lyrica] 50 mg capsule 50 mg PO BID Qty: 60 5RF clopidogrel 75 mg tablet 75 mg PO QPM Qty: 90 3RF Hold Instructions: Resume on 07/06/22. potassium chloride 10 mEq tablet,ER particles/crystals 10 meq PO DAILY Farxiga 10 mg tablet 10 mg PO QAM torsemide 20 mg tablet See Rx Instructions .ROUTE .COMPLEX Rx Instructions: 40 mg orally in the morning / 20 mg orally in the evening Discharge Orders: Discharge ED (Routine); Ordered 11/10/22 Ordered By: Brent Queen Referrals: Janie Agustin MD [Primary Care Provider] - Discharge Diet: Regular Discharge Activity: Increase activity as tolerated Activity Restrictions/Additional Instructions: Follow-up with medical provider as directed. Continue taking all home medications as previously prescribed. Return to the ER or your medical provider if condition worsens. Please read and understand discharge instructions. Thank you for choosing [facility] for your healthcare needs today. Please realize this is an emergency room and that we are providing you with a medical screening exam and this may not be complete and all inclusive of all the testing and or work up that you may need to determine your ailment or severity of your illness. It is very important that you follow up as instructed or that you return to the Emergency Department should you have concerns or if your condition changes or worsens in any way. Coding Level of Care Code ED Occupational Therapist Rehab Manager for Maday Shi
== END 2022-11-10 17:12 | disposition home or self-care (01) ==
PROVIDERS: Emergency Provider Physician Assistant; PCP Internal Medicine
DX: S80.01XA Contusion of right knee, initial encounter (principal); Z79.02 Long term (current) use of antithrombotics/antiplatelets; Z87.891 Personal history of nicotine dependence; I13.0 Hypertensive heart and chronic kidney disease with heart failure and stage 1 through stage 4 chronic kidney disease, or unspecified chronic kidney disease; N18.9 Chronic kidney disease, unspecified; I50.9 Heart failure, unspecified; Z85.3 Personal history of malignant neoplasm of breast; J44.9 Chronic obstructive pulmonary disease, unspecified; Z86.73 Personal history of transient ischemic attack (TIA), and cerebral infarction without residual deficits; Z95.810 Presence of automatic (implantable) cardiac defibrillator; W18.09XA Striking against other object with subsequent fall, initial encounter
CPT/HCPCS: 73562; 99283

== ENCOUNTER 2022-11-14 05:36 | Outpatient (CLI) | payer MEDICARE, OTHER, SELFPAY ==
--- NOTE | 2022-11-14 12:30 | PETR_ITS ---
PROCEDURE INFORMATION: Exam: PET/CT Skull Base to Mid-thigh Exam date and time: 11/14/2022 12:36 PM Age: 77 years old Clinical indication: Condition or disease; Follow-up oncological assessment; Condition/disease: Breast cancer 2007; Prior surgery; Surgery date: 6+ months; Surgery type: Lumpectomy; Additional info: Abnormal imaging; Breast cancer, gerald LABS AND CLINICAL REPORTS: Glucose: 70 mg/dl Treatment strategy for malignancy (PET staging): Restaging (PS) TECHNIQUE: Imaging protocol: Following at least four-hour fasting and following the injection of radiopharmaceutical, low dose CT images were obtained. Then, PET images were obtained. Attenuation corrected images were constructed using the CT scan. Fused images of PET and CT were reviewed. The standardized uptake values (SUV) reported below are maximum values within a region of interest, expressed in gm/ml. Exam includes orbital meatal line to mid-thigh. Radiopharmaceutical: 13.85 mCi F-18 FDG (Fluorodeoxyglucose), IV. Time of imaging post radiopharmaceutical administration: 1 hour Injection site: site COMPARISON: NM bone scan whole body* [id number] 09/04/2022 8:08 AM FINDINGS: Tubes, catheters and devices: Left chest pacemaker. Left atrial appendage exclusion device is unchanged. Brain: Visualized brain has normal physiologic uptake. Pharynx: No abnormal uptake. Larynx: No abnormal uptake. Thyroid: 2.9 cm nodule posterior to the left thyroid gland is unchanged without uptake on PET, most likely an exophytic thyroid nodule. Lungs, pleura and trachea: No suspicious pulmonary mass. Heart: Stable cardiomegaly. Mediastinal space: No abnormal uptake. Liver: No abnormal uptake. Gallbladder and bile ducts: No abnormal uptake. Pancreas: No abnormal uptake. Spleen: No abnormal uptake. Adrenal glands: No abnormal uptake. Kidneys and ureters: Bilateral small nonobstructing renal stones. Stomach and bowel: Colonic diverticulosis without inflammation. Urinary bladder: Wall thickening versus underdistention in the bladder. Reproductive: Hysterectomy. Vasculature: Stable atherosclerosis. Lymph nodes: Mildly prominent mediastinal lymph nodes are unchanged with the comparison CT largest anterior to the trachea measures 1 cm short axis on series 3, image 44 and is unchanged without significant uptake on PET. Bones/joints: There are numerous sclerotic osseous foci with associated uptake suspicious for metastatic disease. Index sclerotic lesion for example in the L1 vertebrae has a SUV max of 5.1. Index lesion in the L3 vertebrae has a SUV max of 5.6. Uptake in the lamina [id number]-left of the T3 vertebrae and minimal uptake in the region of sclerosis in the anterior T3 vertebrae is also present with SUV max of 4.0 corresponding to the uptake on the bone scan. There were lesion on the corresponding bone scan in these locations. There is sclerosis in the medial right 10th rib without significant uptake. There is uptake in the posterior right acetabulum with SUV maximum of 6.4 which appears new since the comparison bone scan. Left acetabular uptake is also seen with SUV maximum of 3.2. There are scattered foci of uptake in both iliac wings for example on the right anteriorly SUV max measures 3.5. There is also scattered uptake in the lower thoracic spine. Uptake is also present in the left proximal femur with SUV max of 5.3. C2 lesion has SUV maximum of 3.3. Soft tissues: No abnormal uptake in the visualized head, neck, chest, abdomen, pelvis, and extremities. Other findings: Stable emphysema. PET/PET skulltothi SUBSEQ [id number] IMPRESSION: 1. Multifocal osseous regions of sclerosis suspicious for metastatic disease, the most conspicuous lesions in the lumbar spine have are similar to the comparison bone scan. Findings are present suspicious for progressive disease in the pelvis, the left proximal femur, and lower thoracic spine. Recommend continued attention on follow-up. 2. No visceral metastasis identified.
== END 2022-11-14 05:37 | disposition home or self-care (01) ==
LOC: RAD 11-16 05:37
PROVIDERS: PCP Internal Medicine; Visit Provider Internal Medicine Hematology & Oncology
DX: C50.411 Malignant neoplasm of upper-outer quadrant of right female breast (principal); R93.89 Abnormal findings on diagnostic imaging of other specified body structures
CPT/HCPCS: 78815; A9552

== ENCOUNTER 2022-11-19 09:25 | Outpatient (CLI) | payer MEDICARE, OTHER, SELFPAY ==
[2022-11-19 10:50] LABS: Albumin Level 3.9 g/dL (3.5-5.2); Anion Gap 16.8 (5-19); Blood Urea Nitrogen 54 mg/dL (8-23); Calcium 8.9 mg/dL (8.5-10.5); Carbon Dioxide 25 mmol/L (22-29); Chloride 103 mmol/L (98-107); Glucose 96 mg/dL (65-115); Phosphorus 4.1 mg/dL (2.5-4.5); Potassium 3.8 mmol/L (3.5-5.1); Sodium 141 mmol/L (136-145)
[2022-11-19 10:51] LABS: Calcium 8.8 mg/dL (8.5-10.5)
[2022-11-19 10:59] LABS: Parathyroid Hormone 258.5 pg/mL (15-65)
[2022-11-19 11:03] LABS: 25 Hydroxy Vitamin D 41 ng/mL (30-100)
[2022-11-19 11:11] LABS: Urine Creatinine 70 mg/dL (28-217); Urine Protein Random 20 mg/dL
[2022-11-19 11:13] LABS: UPRO/UCREAT Ratio 0.29 mg/mg CR
== END 2022-11-19 09:26 | disposition home or self-care (01) ==
LOC: LAB 09:31
PROVIDERS: PCP Internal Medicine; Visit Provider Internal Medicine
DX: N18.4 Chronic kidney disease, stage 4 (severe) (principal)
CPT/HCPCS: 36415; 80069; 82306; 82310; 82570; 83970; 84156

== ENCOUNTER 2022-11-27 07:26 | Oncology outpatient (recurring) (ONCR) | payer MEDICARE, OTHER, SELFPAY ==
[2022-11-27 07:33] VITALS: BP 124/82; PULSE 70; RESP 18; TEMP 35.9; O2SAT 96
[2022-11-27 07:48] LABS: Basophils % 0.5 %; Eosinophils # 0.2 10^3/uL (0.0-0.8); Eosinophils % 2.2 %; Hematocrit 42.4 % (37.0-47.0); Hemoglobin 13.6 g/dL (11.5-15.3); Lymphocytes # 0.8 10^3/uL (0.8-4.8); Lymphocytes % 9.6 %; Mean Corpuscular HGB Conc 32.1 g/dL (30.0-36.0); Mean Corpuscular Hemoglobin 31.1 pg (28.0-34.0); Mean Corpuscular Volume 96.8 fl (81-99); Mean Platelet Volume 11.1 fL (7.4-10.4); Monocytes # 0.6 10^3/uL (0.2-0.9); Monocytes % 7.6 %; Neutrophils % 79.7 %; Nucleated Red Blood Cells % 0 %; Platelet Count 193 10^3/cmm (130-400); Red Blood Count 4.38 10^6/uL (4.1-5.3); Red Cell Distribution Width 15.9 % (12.1-15.1); White Blood Count 8.2 10^3/uL (4.0-10.0)
[2022-11-27 08:22] LABS: Alanine Aminotransferase 18 U/L (0-33); Albumin Level 3.6 g/dL (3.5-5.2); Alkaline Phosphatase 168 U/L (35-105); Anion Gap 16.8 (5-19); Aspartate Amino Transferase 22 U/L (0-32); Blood Urea Nitrogen 43 mg/dL (8-23); CA 15-3 36.6 U/mL (0-25); Carbon Dioxide 25 mmol/L (22-29); Chloride 105 mmol/L (98-107); Globulin 2.9 g/dL (1.3-4.6); Glucose 90 mg/dL (65-115); Osmolality Calculated 306 mOsm/kg (285-295); Potassium 3.8 mmol/L (3.5-5.1); Sodium 143 mmol/L (136-145); Total Bilirubin 0.6 mg/dL (0.15-1.2); Total Protein 6.5 g/dL (6.6-8.7)
[2022-11-30 17:05] LABS: CA 27.29 54 U/mL (<38)
== END 2022-12-21 23:59 | disposition home or self-care (01) ==
PROVIDERS: PCP Internal Medicine; Visit Provider Internal Medicine Hematology & Oncology
DX: Z08 Encounter for follow-up examination after completed treatment for malignant neoplasm (principal); Z85.3 Personal history of malignant neoplasm of breast; D50.9 Iron deficiency anemia, unspecified; M81.0 Age-related osteoporosis without current pathological fracture; M19.072 Primary osteoarthritis, left ankle and foot; R74.8 Abnormal levels of other serum enzymes; Z79.899 Other long term (current) drug therapy; Z92.21 Personal history of antineoplastic chemotherapy; Z92.3 Personal history of irradiation; Z87.891 Personal history of nicotine dependence; C79.51 Secondary malignant neoplasm of bone
CPT/HCPCS: 36415; 80053; 85025; 86300; 99214

== ENCOUNTER → 2022-12-29 12:03 | Outpatient (BNVA) | payer MEDICARE, OTHER, SELFPAY | PROVIDERS: PCP Internal Medicine; Visit Provider Internal Medicine Cardiovascular Disease | DX: I13.0 Hypertensive heart and chronic kidney disease with heart failure and stage 1 through stage 4 chronic kidney disease, or unspecified chronic kidney disease (principal); N18.9 Chronic kidney disease, unspecified; I50.23 Acute on chronic systolic (congestive) heart failure; Z87.891 Personal history of nicotine dependence; D50.9 Iron deficiency anemia, unspecified; C50.919 Malignant neoplasm of unspecified site of unspecified female breast; Z95.818 Presence of other cardiac implants and grafts; Z98.890 Other specified postprocedural states; I42.0 Dilated cardiomyopathy; Z95.810 Presence of automatic (implantable) cardiac defibrillator; F10.21 Alcohol dependence, in remission; Z86.73 Personal history of transient ischemic attack (TIA), and cerebral infarction without residual deficits; I65.23 Occlusion and stenosis of bilateral carotid arteries; Z86.03 Personal history of neoplasm of uncertain behavior | CPT/HCPCS: 99214 ==

== ENCOUNTER 2023-01-20 16:01 | Emergency (ER) | payer MEDICARE, OTHER, SELFPAY ==
[2023-01-20 16:15] VITALS: BP 101/55; PULSE 70; RESP 18; TEMP 36.6; O2SAT 95; BMI 31.6
--- NOTE | 2023-01-20 16:25 | CTR_ITS ---
PROCEDURE INFORMATION: Exam: CT Head Without Contrast Exam date and time: 01/20/2023 4:29 PM Age: 77 years old Clinical indication: Stroke-like symptoms; Altered mental status/memory loss; Generalized weakness; Additional info: Symptoms of acute stroke TECHNIQUE: Imaging protocol: Computed tomography of the head without contrast. Radiation optimization: All CT scans at this facility use at least one of these dose optimization techniques: automated exposure control; mA and/or kV adjustment per patient size (includes targeted exams where dose is matched to clinical indication); or iterative reconstruction. Other technique: STROKE PROTOCOL was implemented. REPORTING DATA: Count of CT and Cardiac NM exams in prior 12 months: This patient has received 3 known CTs and 0 known cardiac nuclear medicine studies in the 12 months prior to the current study. COMPARISON: CT head wo con* [id number] 07/04/2022 1:23 PM RADIATION DOSE METRICS: Total DLP (mGy-cm): 1070 FINDINGS: Brain: No hemorrhage. No edema. Focal encephalomalacia noted in the right frontal lobe. Mild diffuse cerebral atrophy and sequela of chronic small vessel ischemic disease. No mass effect. Cerebral ventricles: No ventriculomegaly. Paranasal sinuses: Visualized sinuses are unremarkable. No fluid levels. Mastoid air cells: Visualized mastoid air cells are well aerated. Bones/joints: Bifrontal craniotomy changes. No acute fracture. Soft tissues: Unremarkable. CT/CT head thrombolytic [id number] IMPRESSION: No acute intracranial abnormality. ASSESSMENT: ASPECTS (Bev Stroke Program Early CT Score) is 10.
--- NOTE | 2023-01-20 16:25 | ECG_ITS ---
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 Measurements Intervals [place] Rate: 72 P: 264 TX: 211 QRS: -86 QRSD: 191 T: 98 QT: 550 QTc: 604 Interpretive Statements ELECTRONIC VENTRICULAR PACEMAKER Compared to ECG 06/25/2022 23:08:09 No significant change Electronically Signed On 01-20-2023 17:13:59 CDT by Patricia Marshall M.D. [email or web address], [id number]
--- NOTE | 2023-01-20 16:26 | W.ED.NEUROSD ---
HPI - Neuro Symptoms/Deficit General: Chief Complaint: Weakness Stated Complaint: weakness in legs Time Seen by Provider: 01/20/23 16:18 Source: patient Mode of arrival: wheelchair History of Present Illness: 77-year-old female presents to the emergency room with complaints of weakness bilaterally in her legs as well as slight slurred speech. She has a history of previous CVA. The symptoms began at 1430 today. She presents to the emergency room at 1601. 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 She also relates that she previously had tPA and had an anaphylactic reaction she is on Plavix but not on any anticoagulants. Onset (ago): hour(s) Last Observed Normal: 14:30 Location: speech and left face Severity: moderate Quality: weak Relieving factors: none Exacerbating factors: none Context: sudden onset Associated symptoms: Deny chest pain, cough, diaphoresis, fevers/chills, headache(s), anorexia, malaise, nausea, seizures, short of breath, syncope, tingling, vertigo, vomiting or weakness Treatments Prior to Arrival: none Review of Systems Const: Denies: fever(s), chills, fatigue, malaise or diaphoresis ENMT: Denies: throat pain, ear or mastoid pain, nasal discharge or nasal congestion Card: Denies: chest pain or syncope Resp: Denies: dyspnea, productive cough or non-productive cough GI: Denies: nausea or vomiting : Denies: flank pain, difficulty voiding, dysuria, urinary frequency or urinary urgency Skin/Breast: Denies: rash or pruritus Neuro: Denies: headache(s) or vertigo PFSH ED PFSH: Medical History Acute kidney injury superimposed on chronic kidney disease Acute on chronic anemia Acute on chronic systolic heart failure Acute renal failure Alcoholism in recovery Anemia Atrial fibrillation Breast CA Breast cancer Breast cancer Cardiac resynchronization therapy defibrillator (PORTABLE TRACK LINE MARKER-D) in place Cardiomyopathy Carotid stenosis, bilateral CHF (congestive heart failure) Chronic kidney disease Chronic systolic heart failure CKD (chronic kidney disease) Claudication Confusion COPD (chronic obstructive pulmonary disease) CVA (cerebral vascular accident) DJD (degenerative joint disease), lumbar History of gastric ulcer HTN (hypertension) Hypotension ICD (implantable cardioverter-defibrillator) in place Iron deficiency anemia Mitral regurgitation Non-ischemic cardiomyopathy Occult blood positive stool Orthostatic dizziness VALE on CPAP Peripheral arterial disease Peripheral vascular disease Pneumonia Presence of Watchman left atrial appendage closure device Presence of Watchman left atrial appendage closure device PUD (peptic ulcer disease) PVCs (premature ventricular contractions) Surgical History History of cardiac radiofrequency ablation History of resection of meningioma Previous back surgery S/P cataract extraction S/P lumpectomy of breast Family History Sister Cancer Social History Smoking and tobacco status: former smoker Alcohol intake: former Other details last alcohol use: recovering alcoholic Substance/Drug Use: never Household members: spouse Marital status: NIH stroke score NIHSS: Level Of Consciousness - 1a: 0 Level Of Consciousness Questions - 1b: Both Correct Level Of Consciousness Commands - 1c: Both Correct Best Gaze - 2: Normal Visual Perez - 3: No Visual Loss Facial Palsy - 4: Normal Motor Arm Right - 5: No Drift Motor Arm Left - 5: No Drift Motor Leg Right - 6: No Drift Motor Leg Left - 6: No Drift Limb Ataxia - 7: Absent Sensory - 8: Mild To Moderate Loss Best Language - 9: No Aphasia Dysarthia - 10: Mild/Moderate Dysarthia Extinction And Inattention - 11: 0 Score: Total Score: 2 Physical Exam Const: GENERAL APPEARANCE: cooperative and comfortable ORIENTATION/CONSCIOUSNESS: Yes awake, Yes oriented to person, Yes oriented to place and Yes oriented to time HENMT: COMMON NORMALS: normocephalic, atraumatic and hearing grossly normal bilaterally HEAD & SCALP: normocephalic and atraumatic Resp: COMMON NORMALS: normal respiratory effort, No retractions, No use of accessory muscles and clear to auscultation bilaterally AUSCULTATION: clear to auscultation bilaterally Cardio: COMMON NORMALS: regular rate, regular rhythm and No murmurs present (Cardio) RATE: regular rate RHYTHM: regular rhythm GI: COMMON NORMALS: Soft to palpation and No hepatosplenomegaly present AUSCULTATION: Yes normoactive bowel sounds PALPATION: Yes Soft to palpation, No Tenderness to palpation present (GI), No Guarding due to palpation present (GI) and Yes No hepatosplenomegaly present Extremity: COMMON NORMALS: normal to inspection, capillary refill normal, no clubbing, cyanosis or edema, no calf tenderness and no pedal edema OTHER: Bilateral lower extremity weakness functional at the same level is able to lift her legs up off the bed and with encouragement hold them up but is obviously quite weak. Sensation lower extremities normal. Neuro: SENSORIUM/ORIENTATION: Yes oriented to person, Yes oriented to place and Yes oriented to time Skin: COMMON NORMALS: no rashes or lesions noted GENERAL SKIN EXAM: no rashes or lesions noted Course Vital Signs: Vital signs: Vital Signs Temperature 97.9 F 01/20/23 16:15 Pulse Rate 81 01/20/23 17:42 Respiratory Rate 21 H 01/20/23 16:57 Blood Pressure 131/77 01/20/23 17:42 Pulse Oximetry 94 01/20/23 17:42 Oxygen Delivery Me thod Room Air 01/20/23 16:15 MDM - Neuro Symptoms/Deficit Medical Decision Making Patient has weakness lower extremities and some pain she does have an MRI that we have copy of the scan in the chart that she just had done Rekha. She has recurrence of breast cancer with multiple lesions to the back. Suspect she had a TIA. Her stroke score at best is a 2 she does not qualify for tPA at this point. Additionally she said she previously had a anaphylactic reaction to tPA. Recommended that she be admitted for observation she declined she would prefer to go home and continue to follow-up as an outpatient. Continue her current medications recommend she take aspirin daily along with the clopidogrel that she is taking. She states she has an allergy to statins. Return if she has any worsening or change or problems or wishes to be reevaluated. Medical Records I reviewed the patient's medical records. Lab Data I reviewed the patient's lab results. 01/20/23 16:25 01/20/23 16:[address] 01/20/23 16:25 IMPRESSION: No acute intracranial abnormality. ASSESSMENT: ASPECTS (Bev Stroke Program Early CT Score) is 10. Laboratory Results WBC 4.39 10^3/uL (3.29-11.43) 01/20/23 16:25 RBC 3.35 10^6/uL (3.85-5.65) L 01/20/23 16:25 Hgb 10.60 g/dL (11.27-16.99) L 01/20/23 16:25 Hct 34.5 % (36-47) L 01/20/23 16:25 MCV 103.0 fl (85-98) H 01/20/23 16:25 MCH 31.6 pg (27-33) 01/20/23 16:25 MCHC 30.7 g/dL (30-55) 01/20/23 16:25 RDW 18.2 % (12.1-15.1) H 01/20/23 16:25 Plt Count 167 10^3/cmm (157-399) 01/20/23 16:25 MPV 11.8 fL (7.4-10.4) H 01/20/23 16:25 Neut % (Auto) 59.7 % 01/20/23 16:25 Lymph % (Auto) 19.8 % 01/20/23 16:25 [place] % (Auto) 17.3 % 01/20/23 16:25 Eos % (Auto) 1.8 % 01/20/23 16:25 Baso % (Auto) 0.9 % 01/20/23 16:25 Neut # (Auto) 2.62 10^3/uL (1.8-7.7) 01/20/23 16:25 Lymph # (Auto) 0.9 10^3/uL (0.8-4.8) 01/20/23 16:25 [place] # (Auto) 0.8 10^3/uL (0.2-0.9) 01/20/23 16:25 Eos # (Auto) 0.1 10^3/uL (0.0-0.8) 01/20/23 16:25 Baso # (Auto) 0.0 10^3/uL (0.0-0.1) 01/20/23 16:25 Nucleated RBC % (auto) 0 % 01/20/23 16:25 Nucleated RBCs # 0.0 /100WBC 01/20/23 16:25 PT 14.50 SECONDS (12.1-14.9) 01/20/23 16:25 INR 1.10 (0.8-1.2) 01/20/23 16:25 APTT 30.5 SECONDS (23.9-36.7) 01/20/23 16:25 Sodium 139 mmol/L (136-145) 01/20/23 16:25 Potassium 3.6 mmol/L (3.5-5.1) 01/20/23 16:25 Chloride 99 mmol/L (98-107) 01/20/23 16:25 Carbon Dioxide 27 mmol/L (22-29) 01/20/23 16:25 Anion Gap 16.6 (5-19) 01/20/23 16:25 BUN 70 mg/dL (8-23) H 01/20/23 16:25 Creatinine 1.7 mg/dL (0.5-0.9) H 01/20/23 16:25 GFR Calculation Not Reportable 01/20/23 16:25 Glucose 125 mg/dL (65-115) H 01/20/23 16:25 POC Glucose 138 mg/dL (70-110) H 01/20/23 16:27 Calculated Osmolality 310 mOsm/kg (285-295) H 01/20/23 16:25 Calcium 8.8 mg/dL (8.5-10.5) 01/20/23 16:25 Total Bilirubin 0.6 mg/dL (0.15-1.2) 01/20/23 16:25 AST 26 U/L (0-32) 01/20/23 16:25 ALT 9 U/L (0-33) 01/20/23 16:25 Alkaline Phosphatase 110 U/L (35-105) H 01/20/23 16:25 Total Protein 5.8 g/dL (6.6-8.7) L 01/20/23 16:25 Albumin 3.8 g/dL (3.5-5.2) 01/20/23 16:25 Globulin 2.0 g/dL (1.3-4.6) 01/20/23 16:25 Urine Color Yellow (Yellow) 01/20/23 16:52 Urine Appearance Clear (CLEAR) 01/20/23 16:52 Urine pH 6 (5-7) 01/20/23 16:52 Ur Specific [place] 1.010 (1.005-1.030) 01/20/23 16:52 Urine Protein Neg (Negative) 01/20/23 16:52 Urine Glucose (UA) Norm (Normal) 01/20/23 16:52 Urine Ketones Negative (Negative) 01/20/23 16:52 Urine Blood 2+ (Negative) H 01/20/23 16:52 Urine Nitrate Negative (Negative) 01/20/23 16:52 Urine Bilirubin Neg (Negative) 01/20/23 16:52 Urine Urobilinogen Norm mg/dL (Negative) 01/20/23 16:52 Ur Leukocyte Esterase Negative (Negative) 01/20/23 16:52 Urine RBC 0-4 /hpf (0-2) H 01/20/23 16:52 Urine WBC 0-4 /hpf (0-5) H 01/20/23 16:52 Ur Squamous Epith Cells 0-4 /hpf (0-5) H 01/20/23 16:52 Amorphous Sediment Not Reportable 01/20/23 16:52 Urine Bacteria None /hpf (NONE) 01/20/23 16:52 Urine Opiates Screen Negative ng/mL (Negative) 01/20/23 16:52 Ur Barbiturates Screen Negative ng/mL (Negative) 01/20/23 16:52 Ur Phencyclidine Scrn Negative ng/mL (Negative) 01/20/23 16:52 Ur Amphetamines Screen Negative ng/mL (Negative) 01/20/23 16:52 U Benzodiazepines Scrn Positive ng/mL (Negative) H 01/20/23 16:52 Urine Cocaine Screen Negative ng/mL (Negative) 01/20/23 16:52 U Marijuana (THC) Screen Negative ng/mL (Negative) 01/20/23 16:52 Discharge Plan Discharge Patient Disposition: Home Clinical Impression: CVA (cerebral vascular accident), Breast cancer, Bilateral leg weakness Condition: Stable Prescriptions: No Action allopurinol 100 mg tablet 100 mg PO BID ferrous sulfate 325 mg (65 mg iron) tablet 325 mg PO BID magnesium 250 mg tablet 250 mg PO QPM metoprolol tartrate 25 mg tablet 25 mg PO BID metolazone 2.5 mg tablet 2.5 mg PO .COMPLEX Rx Instructions: 2.5 mg orally as directed; acetaminophen 325 mg capsule 650 mg PO BID pantoprazole 40 mg tablet,delayed release (DR/EC) 40 mg PO DAILY Qty: 90 3RF clopidogrel 75 mg tablet 75 mg PO QPM Qty: 90 3RF Hold Instructions: Resume on 02/13/23. pregabalin [Lyrica] 50 mg capsule 50 mg PO BID Qty: 60 5RF potassium chloride 10 mEq tablet,ER particles/crystals 10 meq PO DAILY Farxiga 10 mg tablet 10 mg PO QAM torsemide 20 mg tablet See Rx Instructions .ROUTE .COMPLEX Rx Instructions: 40 mg orally in the morning / 20 mg orally in the evening Discharge Orders: Discharge ED (Routine); Ordered 01/20/23 Ordered By: Dandre Marie Referrals: Janie Agustin MD [Primary Care Provider] - Discharge Diet: Usual diet Discharge Activity: Increase activity as tolerated Patient Instructions: Opioid Safety, Pain Management Activity Restrictions/Additional Instructions: You are seen today for a TIA. We had recommended admission you chose to go home. We did review the MRI report from [employer]. There is no stenosis of the lumbar spine or impingement of the nerve roots. Recommend that you follow-up with your primary care doctor or oncologist as soon as you are able. You should use a walker at all times. If you have any worsening or change symptoms return to the emergency room. Coding Level of Care Code ED Machine Fixer for Maday Shi
[2023-01-20 16:32] LABS: Basophils % 0.9 %; Eosinophils # 0.1 10^3/uL (0.0-0.8); Eosinophils % 1.8 %; Hematocrit 34.5 % (36-47); Lymphocytes # 0.9 10^3/uL (0.8-4.8); Lymphocytes % 19.8 %; Mean Corpuscular HGB Conc 30.7 g/dL (30-55); Mean Corpuscular Hemoglobin 31.6 pg (27-33); Mean Platelet Volume 11.8 fL (7.4-10.4); Monocytes # 0.8 10^3/uL (0.2-0.9); Monocytes % 17.3 %; Neutrophils # 2.62 10^3/uL (1.8-7.7); Neutrophils % 59.7 %; Nucleated Red Blood Cells % 0 %; Platelet Count 167 10^3/cmm (157-399); Red Blood Count 3.35 10^6/uL (3.85-5.65); Red Cell Distribution Width 18.2 % (12.1-15.1); White Blood Count 4.39 10^3/uL (3.29-11.43)
[2023-01-20 16:46] LABS: Partial Thromboplastin Time 30.5 SECONDS (23.9-36.7)
[2023-01-20 16:50] LABS: Alanine Aminotransferase 9 U/L (0-33); Albumin Level 3.8 g/dL (3.5-5.2); Alkaline Phosphatase 110 U/L (35-105); Aspartate Amino Transferase 26 U/L (0-32); Blood Urea Nitrogen 70 mg/dL (8-23); Calcium 8.8 mg/dL (8.5-10.5); Carbon Dioxide 27 mmol/L (22-29); Chloride 99 mmol/L (98-107); Glucose 125 mg/dL (65-115); Osmolality Calculated 310 mOsm/kg (285-295); Sodium 139 mmol/L (136-145); Total Bilirubin 0.6 mg/dL (0.15-1.2); Total Protein 5.8 g/dL (6.6-8.7)
[2023-01-20 16:52] LABS: Anion Gap 16.6 (5-19); Potassium 3.6 mmol/L (3.5-5.1)
[2023-01-20 16:57] VITALS: BP 121/72; PULSE 70; RESP 21; O2SAT 94
[2023-01-20 17:42] VITALS: BP 131/77; PULSE 81; O2SAT 94
[2023-01-20 18:23] LABS: Glucose Urine UA Norm (Normal); Ketones Urine Negative (Negative); Protein Urine Neg (Negative); Urine Appearance Clear (CLEAR); Urine Color Yellow (Yellow); pH Urine 6 (5-7)
[2023-01-20 18:24] LABS: Add Urine Culture? No; Add Urine Microscopic? YES; Bilirubin Urine Neg (Negative); Blood Urine 2+ (Negative); Leukocyte Esterase Urine Negative (Negative); Nitrate Urine Negative (Negative); RBC Urine 0-4 /hpf (0-2); Squamous Epithelial Cell Urine 0-4 /hpf (0-5); Urobilinogen Urine Norm (Negative); WBC Urine 0-4 /hpf (0-5)
[2023-01-20 18:31] LABS: Amphetamines Screen Urine Negative (Negative); Barbiturates Screen Urine Negative (Negative); Benzodiazepines Screen Urine Positive (Negative); Cocaine Screen Urine Negative (Negative); Opiate Screen Urine Negative (Negative); PCP Screen Urine Negative (Negative); THC Screen Urine Negative (Negative)
[2023-01-21 10:59] LABS: Glucose Point of Care 138 mg/dL (70-110)
== END 2023-01-20 18:36 | disposition home or self-care (01) ==
PROVIDERS: Emergency Provider Family Medicine; PCP Internal Medicine
DX: I63.9 Cerebral infarction, unspecified (principal); C50.919 Malignant neoplasm of unspecified site of unspecified female breast; Z79.02 Long term (current) use of antithrombotics/antiplatelets; Z87.891 Personal history of nicotine dependence; I13.0 Hypertensive heart and chronic kidney disease with heart failure and stage 1 through stage 4 chronic kidney disease, or unspecified chronic kidney disease; N18.9 Chronic kidney disease, unspecified; I50.23 Acute on chronic systolic (congestive) heart failure; J44.9 Chronic obstructive pulmonary disease, unspecified; Z86.73 Personal history of transient ischemic attack (TIA), and cerebral infarction without residual deficits; Z95.810 Presence of automatic (implantable) cardiac defibrillator
CPT/HCPCS: 36416; 70450; 80053; 80306; 81001; 82962; 85025; 85610; 85730; 93005; 99285

== ENCOUNTER 2023-01-25 17:54 | Emergency (ER) | payer MEDICARE, OTHER, SELFPAY ==
[2023-01-25 18:02] VITALS: BP 109/59; PULSE 62; RESP 16; TEMP 36.6; O2SAT 98; BMI 31.4
--- NOTE | 2023-01-25 18:07 | ECG_ITS ---
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 Measurements Intervals [place] Rate: 80 P: 0 DC: 0 QRS: 144 QRSD: 190 T: -44 QT: 473 QTc: 548 Interpretive Statements ELECTRONIC VENTRICULAR PACEMAKER Compared to ECG 01/20/2023 16:51:47 No significant changes Electronically Signed On 01-25-2023 22:28:01 CDT by Raji Wong M.D. [id number]
--- NOTE | 2023-01-25 18:27 | XRR_ITS ---
PROCEDURE INFORMATION: Exam: XR Chest Exam date and time: 01/25/2023 6:30 PM Age: 77 years old Clinical indication: Cough and shortness of breath; Prior surgery; Surgery date: 6+ months; Surgery type: Breast pacer TECHNIQUE: Imaging protocol: Radiologic exam of the chest. Views: 1 view. COMPARISON: CR XR chest 2V* [id number] 06/30/2022 2:20 PM FINDINGS: Tubes, catheters and devices: Three lead pacemaker device unchanged. Lungs: Unremarkable. No consolidation. Pleural spaces: Unremarkable. No pleural effusion. No pneumothorax. Heart/Mediastinum: Cardiomegaly similar to the prior study. Vasculature: There is calcified plaque in the aortic arch. Bones/joints: Unremarkable. XR/XR chest 1V portable [id number] IMPRESSION: No evidence for acute cardiopulmonary disease.
--- NOTE | 2023-01-25 18:30 | W.ED.SOB ---
HPI - SOB/Dyspnea General: Chief Complaint: Shortness of Breath/Dyspnea Stated Complaint: sleeping alot and cant take deep breath Time Seen by Provider: 01/25/23 18:14 History of Present Illness: HPI Narrative: Patient presents to the ER with a 5-day history of shortness of breath and cough. Patient just recently had a MRI and she thinks she has bone cancer. Patient is seeing a doctor up in [place] currently for this. Patient has also been rundown and tired more fatigued than normal over the last 5 days. Patient denies any fever chills. Patient coughs all the time exertion worsens her cough. Coughing worsens her shortness of breath. Patient does not have a. This. Patient does have a history of CHF. Review of Systems General: Reports: 10 or more systems reviewed and unremarkable except in HPI and below PFSH ED PFSH: Medical History Acute kidney injury superimposed on chronic kidney disease Acute on chronic anemia Acute on chronic systolic heart failure Acute renal failure Alcoholism in recovery Anemia Atrial fibrillation Breast CA Breast cancer Breast cancer Cardiac resynchronization therapy defibrillator (STEM LEAD FORMER-D) in place Cardiomyopathy Carotid stenosis, bilateral CHF (congestive heart failure) Chronic kidney disease Chronic systolic heart failure CKD (chronic kidney disease) Claudication Confusion COPD (chronic obstructive pulmonary disease) CVA (cerebral vascular accident) DJD (degenerative joint disease), lumbar History of gastric ulcer HTN (hypertension) Hypotension ICD (implantable cardioverter-defibrillator) in place Iron deficiency anemia Mitral regurgitation Non-ischemic cardiomyopathy Occult blood positive stool Orthostatic dizziness VALE on CPAP Peripheral arterial disease Peripheral vascular disease Pneumonia Presence of Watchman left atrial appendage closure device Presence of Watchman left atrial appendage closure device PUD (peptic ulcer disease) PVCs (premature ventricular contractions) Surgical History History of cardiac radiofrequency ablation History of resection of meningioma Previous back surgery S/P cataract extraction S/P lumpectomy of breast Family History Sister Cancer Social History Smoking and tobacco status: former smoker Alcohol intake: former Other details last alcohol use: recovering alcoholic Substance/Drug Use: never Household members: spouse Marital status: Physical Exam Const: COMMON NORMALS: no acute distress, average body habitus, patient oriented x3, no limitations, healthy appearing, alert and well nourished HENMT: COMMON NORMALS: normocephalic, hearing grossly normal bilaterally, external ears normal, Normal external nose present and moist oral mucous membranes HEAD & SCALP: normocephalic NOSE: Normal external nose present EXTERNAL EAR: Yes external ears normal Eye: COMMON NORMALS: Equal, round and reactive pupils present, EOMs intact bilaterally, conjunctivae normal and no scleral icterus CONJUNCTIVA: Yes conjunctivae normal PUPIL: Yes Equal, round and reactive pupils present Neck/C-Spine: COMMON NORMALS: full ROM, no lymphadenopathy, supple, no meningeal signs, no JVD and Thyroid normal THYROID: Thyroid normal Lymph: LYMPHATIC: no lymphadenopathy noted Chest: COMMONS NORMALS: normal inspection of the chest and normal palpation of entire chest wall Resp: COMMON NORMALS: normal respiratory effort, No retractions, No use of accessory muscles and clear to auscultation bilaterally AUSCULTATION: clear to auscultation bilaterally Cardio: COMMON NORMALS: no JVD, regular rate, regular rhythm, S1 normal heart sound present, S2 normal heart sound present, No gallops present (Cardio), No clicks present (Cardio), No murmurs present (Cardio) and No rub (Cardio) RATE: regular rate RHYTHM: regular rhythm HEART SOUNDS: S1 normal heart sound present and S2 normal heart sound present GI: COMMON NORMALS: Normal to inspection, nondistended, normoactive bowel sounds present, Soft to palpation, non-tender, No hepatosplenomegaly present, no masses and no bruits PALPATION: Yes Soft to palpation and Yes No hepatosplenomegaly present : COMMON NORMALS: Yes no CVA tenderness BLADDER/KIDNEY EXAM: Yes no CVA tenderness Back/Pelvis: COMMON NORMALS: no CVA tenderness Neuro: COMMON NORMALS: patient oriented x3 SENSORIUM/ORIENTATION: Yes alert MENINGEAL SIGNS: Yes no meningeal signs Course Vital Signs: Vital signs: Vital Signs Temperature 97.9 F 01/25/23 18:02 Pulse Rate 77 01/25/23 18:31 Respiratory Rate 18 01/25/23 18:31 Blood Pressure 123/91 01/25/23 18:31 Pulse Oximetry 98 01/25/23 18:31 Oxygen Delivery Me thod Room Air 01/25/23 18:31 MDM - SOB/Dyspnea Medical Decision Making Patient presents to the ER with complaints of shortness of breath and fatigue. Patient sleeping 12 to 15 hours a day. Patient has full body pain. Patient has a diagnosis of probable bone cancer. Lab work was obtained physical exam was performed lab work showed patient is little more elevated BUN and creatinine in the normal respiratory panel is negative, BNP was elevated at 6600 but this is midline per patient. No CHF findings on x-ray. This was all discussed with patient and her in detail. Patient be discharged home to follow-up with PCP for further evaluation and treatment. Differential Diagnosis Unlikely acute exacerbation of chronic obstructive airways disease, congestive heart failure, community acquired pneumonia, asthma with exacerbation or pulmonary embolism Medical Records I reviewed the patient's medical records. Lab Data I reviewed the patient's lab results. 01/25/23 18:45 01/25/23 18:45 Labs/Radiology: Radiology Impressions Chest X-Ray 01/25/23 18:27 IMPRESSION: No evidence for acute cardiopulmonary disease. Laboratory Results WBC 5.94 10^3/uL (3.29-11.43) 01/25/23 18:45 RBC 3.27 10^6/uL (3.85-5.65) L 01/25/23 18:45 Hgb 10.40 g/dL (11.27-16.99) L 01/25/23 18:45 Hct 34.8 % (36-47) L 01/25/23 18:45 MCV 106.4 fl (85-98) H 01/25/23 18:45 MCH 31.8 pg (27-33) 01/25/23 18:45 MCHC 29.9 g/dL (30-55) L 01/25/23 18:45 RDW 19.1 % (12.1-15.1) H 01/25/23 18:45 Plt Count 185 10^3/cmm (157-399) 01/25/23 18:45 MPV 12.3 fL (7.4-10.4) H 01/25/23 18:45 Neut % (Auto) 69.5 % 01/25/23 18:45 Lymph % (Auto) 16.0 % 01/25/23 18:45 [place] % (Auto) 12.0 % 01/25/23 18:45 Eos % (Auto) 1.3 % 01/25/23 18:45 Baso % (Auto) 0.7 % 01/25/23 18:45 Neut # (Auto) 4.13 10^3/uL (1.8-7.7) 01/25/23 18:45 Lymph # (Auto) 1.0 10^3/uL (0.8-4.8) 01/25/23 18:45 [place] # (Auto) 0.7 10^3/uL (0.2-0.9) 01/25/23 18:45 Eos # (Auto) 0.1 10^3/uL (0.0-0.8) 01/25/23 18:45 Baso # (Auto) 0.0 10^3/uL (0.0-0.1) 01/25/23 18:45 Nucleated RBC % (auto) 0.7 % 01/25/23 18:45 Nucleated RBCs # 0.0 /100WBC 01/25/23 18:45 PT 16.20 SECONDS (12.1-14.9) H 01/25/23 18:45 INR 1.25 (0.8-1.2) H 01/25/23 18:45 Sodium 145 mmol/L (136-145) 01/25/23 18:45 Potassium 4.0 mmol/L (3.5-5.1) 01/25/23 18:45 Chloride 106 mmol/L (98-107) 01/25/23 18:45 Carbon Dioxide 25 mmol/L (22-29) 01/25/23 18:45 Anion Gap 18.0 (5-19) 01/25/23 18:45 BUN 79 mg/dL (8-23) H 01/25/23 18:45 Creatinine 1.9 mg/dL (0.5-0.9) H 01/25/23 18:45 GFR Calculation Not Reportable 01/25/23 18:45 Glucose 112 mg/dL (65-115) 01/25/23 18:45 Calculated Osmolality 324 mOsm/kg (285-295) H 01/25/23 18:45 Calcium 9.4 mg/dL (8.5-10.5) 01/25/23 18:45 Magnesium 3.0 mg/dL (1.7-2.3) H 01/25/23 18:45 Total Bilirubin 1.0 mg/dL (0.15-1.2) 01/25/23 18:45 AST 37 U/L (0-32) H 01/25/23 18:45 ALT 17 U/L (0-33) 01/25/23 18:45 Alkaline Phosphatase 128 U/L (35-105) H 01/25/23 18:45 NT-Pro-B Natriuret Pep 6655 pg/mL (0-450) H 01/25/23 18:45 Total Protein 5.8 g/dL (6.6-8.7) L 01/25/23 18:45 Albumin 3.8 g/dL (3.5-5.2) 01/25/23 18:45 Globulin 2.0 g/dL (1.3-4.6) 01/25/23 18:45 Urine Color Yellow (Yellow) 01/25/23 19:46 Urine Appearance Clear (CLEAR) 01/25/23 19:46 Urine pH 5 (5-7) 01/25/23 19:46 Ur Specific [place] 1.010 (1.005-1.030) 01/25/23 19:46 Urine Protein Neg (Negative) 01/25/23 19:46 Urine Glucose (UA) Norm (Normal) 01/25/23 19:46 Urine Ketones Negative (Negative) 01/25/23 19:46 Urine Blood Neg (Negative) 01/25/23 19:46 Urine Nitrate Negative (Negative) 01/25/23 19:46 Urine Bilirubin Neg (Negative) 01/25/23 19:46 Urine Urobilinogen Neg mg/dL (Negative) 01/25/23 19:46 Ur Leukocyte Esterase Negative (Negative) 01/25/23 19:46 Nasal Influ A H1 2008 PCR Not detected (NOT DETECT) 01/25/23 18:45 Adenovirus (PCR) Not detected (NOT DETECT) 01/25/23 18:45 C. pneumoniae DNA (PCR) Not detected (NOT DETECT) 01/25/23 18:45 Coronavirus 229E (PCR) Not detected (NOT DETECT) 01/25/23 18:45 Human Metapneumovir PCR Not detected (NOT DETECT) 01/25/23 18:45 Influenza A (H1) PCR Not detected (NOT DETECT) 01/25/23 18:45 Influenza A (H3) PCR Not detected (NOT DETECT) 01/25/23 18:45 Influenza Type A (PCR) Not detected (NOT DETECT) 01/25/23 18:45 Influenza Type B (PCR) Not detected (NOT DETECT) 01/25/23 18:45 M. pneumoniae (PCR) Not detected (NOT DETECT) 01/25/23 18:45 Parainfluenza 1 (PCR) Not detected (NOT DETECT) 01/25/23 18:45 Parainfluenza 2 (PCR) Not detected (NOT DETECT) 01/25/23 18:45 Parainfluenza 3 (PCR) Not detected (NOT DETECT) 01/25/23 18:45 Parainfluenza 4 (PCR) Not detected (NOT DETECT) 01/25/23 18:45 RSV Type A (PCR) Not detected (NOT DETECT) 01/25/23 18:45 RSV Type B (PCR) Not detected (NOT DETECT) 01/25/23 18:45 Entero/Rhino (PCR) Not detected (NOT DETECT) 01/25/23 18:45 SARS-CoV-2 (PCR) Not detected (NOT DETECT) 01/25/23 18:45 EKG Data EKG 1: I personally reviewed and interpreted this EKG as follows: EKG Interpretation Date: 01/25/23 EKG interpretation time: 18:11 Prior EKG tracings: not available for review Interpretation: EKG showed ventricular rate 80 bpm, QRS duration 190, QT C of 509, electronic ventricular pacemaker, Discharge Plan Discharge Patient Disposition: Home Clinical Impression: SOB (shortness of breath) Fatigue Qualifiers: Fatigue type: unspecified Qualified Code(s): R53.83 - Other fatigue Chronic kidney insufficiency Qualifiers: Chronic kidney disease stage: unspecified stage Qualified Code(s): N18.9 - Chronic kidney disease, unspecified Condition: Stable Prescriptions: No Action allopurinol 100 mg tablet 100 mg PO BID ferrous sulfate 325 mg (65 mg iron) tablet 325 mg PO BID magnesium 250 mg tablet 250 mg PO QPM metoprolol tartrate 25 mg tablet 25 mg PO BID metolazone 2.5 mg tablet 2.5 mg PO .COMPLEX Rx Instructions: 2.5 mg orally as directed; acetaminophen 325 mg capsule 650 mg PO BID pantoprazole 40 mg tablet,delayed release (DR/EC) 40 mg PO DAILY Qty: 90 3RF clopidogrel 75 mg tablet 75 mg PO QPM Qty: 90 3RF Hold Instructions: Resume on 07/06/22. pregabalin [Lyrica] 50 mg capsule 50 mg PO BID Qty: 60 5RF potassium chloride 10 mEq tablet,ER particles/crystals 10 meq PO DAILY Farxiga 10 mg tablet 10 mg PO QAM torsemide 20 mg tablet See Rx Instructions .ROUTE .COMPLEX Rx Instructions: 40 mg orally in the morning / 20 mg orally in the evening Discharge Orders: Discharge ED (Routine); Ordered 01/25/23 Ordered By: John Barba Referrals: Janie Agustin MD [Primary Care Provider] - 1 week Patient Instructions: Fatigue, Chronic Kidney Disease (ED) Activity Restrictions/Additional Instructions: Please keep your scheduled appointment for your bone biopsy. Please follow-up with your family practice doctor in the next 7 days or sooner as needed for further evaluation and treatment. Coding Level of Care Code ED Passenger Agent for Maday Shi
[2023-01-25 18:31] VITALS: BP 123/91; PULSE 77; RESP 18; O2SAT 98
[2023-01-25 18:56] LABS: Basophils % 0.7 %; Eosinophils # 0.1 10^3/uL (0.0-0.8); Eosinophils % 1.3 %; Hematocrit 34.8 % (36-47); Mean Corpuscular HGB Conc 29.9 g/dL (30-55); Mean Corpuscular Hemoglobin 31.8 pg (27-33); Mean Corpuscular Volume 106.4 fl (85-98); Mean Platelet Volume 12.3 fL (7.4-10.4); Monocytes # 0.7 10^3/uL (0.2-0.9); Neutrophils # 4.13 10^3/uL (1.8-7.7); Neutrophils % 69.5 %; Nucleated Red Blood Cells % 0.7 %; Platelet Count 185 10^3/cmm (157-399); Red Blood Count 3.27 10^6/uL (3.85-5.65); Red Cell Distribution Width 19.1 % (12.1-15.1); White Blood Count 5.94 10^3/uL (3.29-11.43)
[2023-01-25 19:07] LABS: INR 1.25 (0.8-1.2)
[2023-01-25 19:24] LABS: Alanine Aminotransferase 17 U/L (0-33); Albumin Level 3.8 g/dL (3.5-5.2); Alkaline Phosphatase 128 U/L (35-105); Aspartate Amino Transferase 37 U/L (0-32); Blood Urea Nitrogen 79 mg/dL (8-23); Calcium 9.4 mg/dL (8.5-10.5); Carbon Dioxide 25 mmol/L (22-29); Chloride 106 mmol/L (98-107); Glucose 112 mg/dL (65-115); NT Pro B Type Natriuretic Pept 6655 pg/mL (0-450); Osmolality Calculated 324 mOsm/kg (285-295); Sodium 145 mmol/L (136-145); Total Protein 5.8 g/dL (6.6-8.7)
[2023-01-25 19:52] LABS: Add Urine Microscopic? NO; Charge for UA Resulting for Rev
[2023-01-25 20:14] LABS: Bilirubin Urine Neg (Negative); Blood Urine Neg (Negative); Glucose Urine UA Norm (Normal); Ketones Urine Negative (Negative); Leukocyte Esterase Urine Negative (Negative); Nitrate Urine Negative (Negative); Protein Urine Neg (Negative); Urine Appearance Clear (CLEAR); Urine Color Yellow (Yellow); Urobilinogen Urine Neg (Negative); pH Urine 5 (5-7)
[2023-01-25 20:36] LABS: Adenovirus Not Detected (NOT DETECT); Chlamydia Pneumoniae Not Detected (NOT DETECT); Coronavirus 229E,HKU1,NL63,OC4 Not Detected (NOT DETECT); Human Metapneumovirus Not Detected (NOT DETECT); Human Rhinovirus/Enterovirus Not Detected (NOT DETECT); Influenza A Not Detected (NOT DETECT); Influenza A H1 Not Detected (NOT DETECT); Influenza A H1-2009 Not Detected (NOT DETECT); Influenza A H3 Not Detected (NOT DETECT); Influenza B Not Detected (NOT DETECT); Mycoplasma Pneumoniae Not Detected (NOT DETECT); Parainfluenza Virus Type 1 Not Detected (NOT DETECT); Parainfluenza Virus Type 2 Not Detected (NOT DETECT); Parainfluenza Virus Type 3 Not Detected (NOT DETECT); Parainfluenza Virus Type 4 Not Detected (NOT DETECT); Respiratory Syncytial Virus A Not Detected (NOT DETECT); Respiratory Syncytial Virus B Not Detected (NOT DETECT); SARS-COV-2 Not Detected (NOT DETECT)
[2023-01-25 21:03] VITALS: BP 131/61; PULSE 78; RESP 18; O2SAT 97
== END 2023-01-25 21:12 | disposition home or self-care (01) ==
PROVIDERS: Emergency Provider Emergency Medicine; PCP Internal Medicine
DX: R06.02 Shortness of breath (principal); R53.83 Other fatigue; Z20.822 Contact with and (suspected) exposure to COVID-19; Z79.02 Long term (current) use of antithrombotics/antiplatelets; I13.0 Hypertensive heart and chronic kidney disease with heart failure and stage 1 through stage 4 chronic kidney disease, or unspecified chronic kidney disease; N18.9 Chronic kidney disease, unspecified; I50.22 Chronic systolic (congestive) heart failure; Z85.3 Personal history of malignant neoplasm of breast; J44.9 Chronic obstructive pulmonary disease, unspecified; Z86.73 Personal history of transient ischemic attack (TIA), and cerebral infarction without residual deficits; Z87.891 Personal history of nicotine dependence; Z95.810 Presence of automatic (implantable) cardiac defibrillator
CPT/HCPCS: 36415; 71045; 80053; 81003; 83735; 83880; 85025; 85610; 87486; 87581; 87633; 93005; 99285

== ENCOUNTER → 2023-02-04 12:01 | Outpatient (BNVA) | payer MEDICARE, OTHER, SELFPAY | PROVIDERS: PCP Internal Medicine; Visit Provider Internal Medicine Cardiovascular Disease | DX: Z98.890 Other specified postprocedural states (principal); I13.0 Hypertensive heart and chronic kidney disease with heart failure and stage 1 through stage 4 chronic kidney disease, or unspecified chronic kidney disease; N18.9 Chronic kidney disease, unspecified; N17.9 Acute kidney failure, unspecified; I50.9 Heart failure, unspecified; Z86.03 Personal history of neoplasm of uncertain behavior; D50.9 Iron deficiency anemia, unspecified; C50.919 Malignant neoplasm of unspecified site of unspecified female breast; Z95.818 Presence of other cardiac implants and grafts; G47.33 Obstructive sleep apnea (adult) (pediatric); Z99.89 Dependence on other enabling machines and devices; I42.0 Dilated cardiomyopathy; Z95.810 Presence of automatic (implantable) cardiac defibrillator; I48.19 Other persistent atrial fibrillation; F10.21 Alcohol dependence, in remission; R09.02 Hypoxemia; I49.3 Ventricular premature depolarization; I65.23 Occlusion and stenosis of bilateral carotid arteries; Z86.73 Personal history of transient ischemic attack (TIA), and cerebral infarction without residual deficits; Z87.891 Personal history of nicotine dependence | CPT/HCPCS: 99215 ==

== ENCOUNTER 2023-02-11 09:52 | Oncology outpatient (recurring) (ONCR) | payer MEDICARE, OTHER, SELFPAY ==
[2023-02-09 15:38] LABS: Basophils % 0.8 %; Eosinophils # 0.1 10^3/uL (0.0-0.8); Eosinophils % 3.1 %; Hematocrit 38.4 % (36-47); Lymphocytes # 0.8 10^3/uL (0.8-4.8); Lymphocytes % 23.5 %; Mean Corpuscular HGB Conc 28.6 g/dL (30-55); Mean Corpuscular Volume 104.6 fl (85-98); Mean Platelet Volume 12.4 fL (7.4-10.4); Monocytes # 0.4 10^3/uL (0.2-0.9); Monocytes % 11.8 %; Neutrophils # 2.16 10^3/uL (1.8-7.7); Neutrophils % 60.5 %; Nucleated Red Blood Cells % 0 %; Platelet Count 122 10^3/cmm (157-399); Red Blood Count 3.67 10^6/uL (3.85-5.65); Red Cell Distribution Width 16.2 % (12.1-15.1); White Blood Count 3.57 10^3/uL (3.29-11.43)
[2023-02-09 16:21] LABS: Alanine Aminotransferase 17 U/L (0-33); Albumin Level 3.4 g/dL (3.5-5.2); Alkaline Phosphatase 141 U/L (35-105); Anion Gap 16.9 (5-19); Aspartate Amino Transferase 25 U/L (0-32); Blood Urea Nitrogen 52 mg/dL (8-23); CA 15-3 75.9 U/mL (0-25); Carbon Dioxide 27 mmol/L (22-29); Chloride 105 mmol/L (98-107); Creatinine Clr Calc Pharmacy 33.3795; Globulin 2.5 g/dL (1.3-4.6); Glucose 88 mg/dL (65-115); Osmolality Calculated 313 mOsm/kg (285-295); Potassium 3.9 mmol/L (3.5-5.1); Sodium 145 mmol/L (136-145); Total Bilirubin 0.9 mg/dL (0.15-1.2); Total Protein 5.9 g/dL (6.6-8.7)
[2023-02-10 12:18] LABS: CA 27.29 89 U/mL (<38)
--- NOTE | 2023-02-11 17:02 | N.ONRAD NP_ITS ---
Radiation Oncology New Patient Visit Patient: Teena Timmons MR#: [id number] : 1945> Age: 77> Sex: Female> Dictated by: Bobo Browne Date of Service: 02/11/2023 Referring Physician(s) : Olinda Arenas M.D. 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 Radiotherapy to date: Course: Course1, Treatment Site: RT BREAST, Ref. ID: RT BREAST, Energy: 6X, Dose/Fx (cGy): 180, #Fx: / 28, Dose Correction (cGy): 0, Total Dose (cGy): 5,040, Start Date: 07/30/2014, End Date: 09/05/2014, Elapsed Days: 37 Course1, Treatment Site: RT BREAST BOOST, Ref. ID: RT BREAST BOOST, Energy: 9E, Dose/Fx (cGy): 200, #Fx: 8 / 8, Dose Correction (cGy): 0, Total Dose (cGy): 1,600, Start Date: 09/06/2014, End Date: 09/17/2014, Elapsed Days: 11 Course1, Treatment Site: RT SUPRACLAV, Ref. ID: RT SUPRACLAV, Energy: 15X, Dose/Fx (cGy): 180, #Fx: , Dose Correction (cGy): 0, Total Dose (cGy): 5,040, Start Date: 07/30/2014, End Date: 09/05/2014 Chief Complaint / History of Present Illness: She currently notes pelvic pressure only worse in the AM. No real pain. No other pain elsewhere. Using only Lyrica and Tylenol. 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 PET/Ct 11/14/2022 Widespread sclerotic or blastic osseous metastatic disease. No pathologic or compression fractures seen. Current Medications: Acetaminophen, allopurinol, b Complex, calcium 600/Vitamin D, clopidogrel Bisulfate, ferrous Sulfate, gabapentin, lasix, lisinopril, magnesium, metOLazone, metoprolol Succinate ER, pantoprazole Sodium, potassimin, prochlorperazine Maleate, torsemide. Allergies: Latex (bandaids), statins and tpa. Medical History: Atrial fibrillation, Breast Cancer, Chronic kidney insufficiency, chronic obstructive pulmonary disease, depression, History of GI bleed and anemia, hypertension, Meningioma with resection in 2010, Non ischemic cardiomyopathy, Right middle cerebral artery stroke, vitamin d def. No history of collagen vascular disease. No previous radiation therapy. Surgical History: Brain Tumor, colonoscopy in 2010, hysterectomy and lumpectomy. Family History: Father is at age 47. Mother is at age 86. Sister Breast Cancer 64 Social History: Last screened on 07/28/2021 - Yes - but has quit for 9 years. Smoked 1.0 pack/day for 30 years (30 pack years). Last screened on 07/28/2021 - Past drinker who quit for 37 years. 20 drinks/day. Patient indicated access to the following support systems: lives with spouse, significant other, family, or friends, lives in own house, supportive family/friends willing to assist with needs, and adequate transportation available for expected visits. Patient indicated the following nutritional habits: regular meals. Patient indicated participation in the following forms of activity: daily activities. Current Complaints / Review of Systems: . Vital Signs: Performed on 02/11/2023 10:20 AM BMI - 29.24 kg/m2 (high), Height - 69 in, Weight - 198 lbs, Temperature - 96.7 f, Pulse - 69 /min, Respiration - 16 /min, O2 Sat - 97 %, Pain - 4, Fatigue - 0 and BP - 113/ 64 mm(hg)(/low). Performance Status: 1 - 2 Pathology: Primary, c79.51 - secondary malignant neoplasm of bone, Diagnosed 02/10/2023 (active), Primary, c50.411 - malignant neoplasm of upper-outer quadrant of right female breast, Diagnosed 04/16/2015 (active) stage iib, t2, pn1a, m0, g1 and Secondary, d50.9 - iron deficiency anemia, unspecified, Diagnosed 08/11/2018 (active). Impression: New diagnosis of osseous only metastatic breast disease. Minimal symptoms Plan is to initiate systemic treatment with Kisqali. I did not see a need for adding palliative radiation at this time. We can re consider palliative radiation if symptomatic progression occurs in the future. Discussed in detail with patient and spouse. Plan: Signed by: 02/11/2023 5:00:47 PM <<Signature on File>> Time spent with patient: CPT Code: CPT Code:
== END 2023-02-20 23:59 | disposition home or self-care (01) ==
PROVIDERS: Internal Medicine Medical Oncology; PCP Internal Medicine; Visit Provider Radiology Radiation Oncology
DX: Z08 Encounter for follow-up examination after completed treatment for malignant neoplasm (principal); Z85.3 Personal history of malignant neoplasm of breast; D50.9 Iron deficiency anemia, unspecified; M81.0 Age-related osteoporosis without current pathological fracture; M19.072 Primary osteoarthritis, left ankle and foot; R74.8 Abnormal levels of other serum enzymes; Z79.899 Other long term (current) drug therapy; Z92.21 Personal history of antineoplastic chemotherapy; Z92.3 Personal history of irradiation; Z87.891 Personal history of nicotine dependence; C50.919 Malignant neoplasm of unspecified site of unspecified female breast
CPT/HCPCS: 36415; 80053; 85025; 86300; 99205; 99214

== ENCOUNTER 2023-02-19 12:18 | Outpatient (CLI) | payer MEDICARE, OTHER, SELFPAY ==
--- NOTE | 2023-02-19 12:30 | USCV_ITS ---
Teena Timmons Age: 77 Gender: F : 1945 Exam Date: 02/19/2023 12:40 Ordering Phys: Gallo Zamudio MD ([email or web address]) Technologist: [place] [facility] [place]: [place] Risk Factors: Previous Vascular Surgery: multiple stents both legs RIGHT LEFT BP: 115.0 / 70.00 BP: 115.0/ 70.00 0 0 Waveform Velocity (cm/s) Velocity (cm/s) Waveform Triphasic 210.5 Iliac Prox 148.6 Triphasic Triphasic 205.1 Iliac Mid 105.2 Triphasic Triphasic 192.5 Iliac Distal 105.2 Biphasic Triphasic 181.7 ROOMING HOUSE KEEPER 111.7 Biphasic Biphasic 77.6 SFA Prox 106.9 Biphasic Biphasic 102.5 SFA Mid 80.5 Triphasic Biphasic 111.7 SFA Dist 93.7 Biphasic Monophasic 45.3 POP 126.8 Biphasic Monophasic 34.0 CABLE INSPECTOR 27.6 Monophasic Monophasic 47.5 DPA 59.2 Monophasic KALEN 0.7 0.6 FINDINGS Moderate and diffuse plaques iliac and common femoral arteries bilaterally Abnormal Doppler waveforms in the infrapopliteal vessels bilaterally Resting KALEN of 0.6 on the right and 0.7 on the left CONCLUSIONS 1. Abnormal resting ABIs bilaterally, consistent with moderate peripheral arterial disease 2. Moderate dense diffuse plaque in the iliac and common femoral arteries bilaterally 3. Abnormal Doppler waveforms and Doppler flow velocities in the infrapopliteal vessels, suggesting significant disease in these vessels. Dr Christiano Max MD [facility] (Electronically Signed) Final Date: 22 February 2023 11:06 S
== END 2023-02-19 12:19 | disposition home or self-care (01) ==
PROVIDERS: PCP Internal Medicine; Visit Provider Internal Medicine Cardiovascular Disease
DX: M79.604 Pain in right leg (principal); M79.605 Pain in left leg; Z98.890 Other specified postprocedural states
CPT/HCPCS: 93925

== ENCOUNTER 2023-03-09 13:57 | Outpatient (CLI) | payer MEDICARE, OTHER, SELFPAY ==
[2023-03-09 14:32] LABS: Basophils # 0.1 10^3/uL (0.0-0.1); Basophils % 1.1 %; Eosinophils # 0.1 10^3/uL (0.0-0.8); Eosinophils % 2.2 %; Lymphocytes # 0.8 10^3/uL (0.8-4.8); Mean Corpuscular Hemoglobin 30.4 pg (27-33); Mean Corpuscular Volume 104.6 fl (85-98); Monocytes # 0.6 10^3/uL (0.2-0.9); Monocytes % 13.9 %; Neutrophils # 2.98 10^3/uL (1.8-7.7); Neutrophils % 64.4 %; Nucleated Red Blood Cells % 0 %; Platelet Count 148 10^3/cmm (157-399); Red Blood Count 3.92 10^6/uL (3.85-5.65); White Blood Count 4.62 10^3/uL (3.29-11.43)
[2023-03-09 14:56] LABS: Urine Creatinine 87 mg/dL (28-217); Urine Protein Random 10 mg/dL
[2023-03-09 14:57] LABS: UPRO/UCREAT Ratio 0.11 mg/mg CR
[2023-03-09 15:08] LABS: Albumin Level 3.7 g/dL (3.5-5.2); Blood Urea Nitrogen 51 mg/dL (8-23); Calcium 9.5 mg/dL (8.5-10.5); Carbon Dioxide 26 mmol/L (22-29); Chloride 105 mmol/L (98-107); Glucose 87 mg/dL (65-115); Phosphorus 4.2 mg/dL (2.5-4.5); Sodium 145 mmol/L (136-145)
[2023-03-09 15:09] LABS: Calcium 9.4 mg/dL (8.5-10.5)
[2023-03-09 15:11] LABS: Anion Gap 18.1 (5-19); Potassium 4.1 mmol/L (3.5-5.1)
[2023-03-09 15:16] LABS: Parathyroid Hormone 124.1 pg/mL (15-65)
== END 2023-03-09 13:58 | disposition home or self-care (01) ==
PROVIDERS: PCP Internal Medicine; Visit Provider Internal Medicine
DX: C50.919 Malignant neoplasm of unspecified site of unspecified female breast (principal)
CPT/HCPCS: 36415; 80069; 82310; 82570; 83970; 84156; 85025

== ENCOUNTER 2023-03-22 07:11 | Emergency (ER) | payer MEDICARE, OTHER, SELFPAY ==
[2023-03-22 07:12] VITALS: BMI 39.5
--- NOTE | 2023-03-22 07:13 | XRR_ITS ---
PROCEDURE INFORMATION: Exam: XR Right Forearm Exam date and time: 03/22/2023 7:35 AM Age: 77 years old Clinical indication: Injury or trauma; Fall; Blunt trauma (contusions or hematomas); Arm, lower; Right TECHNIQUE: Imaging protocol: Radiologic exam of the right forearm. 2image(s) are provided. Views: 2 views. COMPARISON: NM bone scan whole body* [id number] 09/04/2022 8:08 AM. Wrist series same day. No previous forearm radiograph is currently available. FINDINGS: Bones/joints: Osseous alignment is overall maintained. There is an impacted fracture of the distal radius with some fragmentation. No other displaced fracture or dislocation is currently appreciated. There is slightly decreased bone mineralization overall. Elbow alignment appears maintained. There appears to be some mild degenerative spurring about the humeral epicondyles. Soft tissues: No radiopaque foreign body or subcutaneous emphysema is appreciated. There is some skin fold averaging. XR/XR forearm RT 2V [id number] IMPRESSION: There is an impacted and slightly fragmented fracture of the distal radius demonstrated.
[2023-03-22 07:15] VITALS: BP 124/63; PULSE 72; RESP 16; TEMP 37.1; O2SAT 93
[2023-03-22 07:23] VITALS: BP 124/63; PULSE 79; RESP 18; O2SAT 97
[2023-03-22 07:44] VITALS: BP 124/63
--- NOTE | 2023-03-22 07:44 | XRR_ITS ---
PROCEDURE INFORMATION: Exam: XR Right Wrist Exam date and time: 03/22/2023 7:44 AM Age: 77 years old Clinical indication: Injury or trauma; Fall; Blunt trauma (contusions or hematomas); Wrist; Right TECHNIQUE: Imaging protocol: Radiologic exam of the right wrist. 4image(s) are provided. Views: 3 or more views. COMPARISON: CR XR forearm RT 2V [id number] 03/22/2023 7:35 AM. No previous comparison study is currently available. FINDINGS: Bones/joints: There is some chronic advanced degeneration about the 1st carpometacarpal junction with narrowing, sclerosis and subchondral cystic related change. There is chronic radiocarpal level narrowing demonstrated. Carpal alignment appears maintained. There is slightly decreased bone mineralization overall. Osseous alignment appears overall maintained. There is an impacted fracture of the distal radius demonstrated. This demonstrates some slight fragmentation including dorsally on the lateral view. There is some chondrocalcinosis appearance. No other displaced fracture or dislocation is currently appreciated. Soft tissues: No radiopaque foreign body or subcutaneous emphysema is appreciated. XR/XR wrist RT w scaphoid [id number] IMPRESSION: There is an impacted fracture of the distal radius demonstrated with slight dorsal fragmentation on the lateral view.
--- NOTE | 2023-03-22 07:54 | ED_ITS ---
HPI - Extremity Problem General: Chief complaint: Extremity Injury, Upper Stated complaint: fall, rt forearm pain Time Seen by Provider: 03/22/23 07:12 Source: patient Mode of arrival: EMS History of Present Illness: 77-year-old female presents to the emergency room with complaints of left forearm pain initially however when x-rays were done she complained more wrist pain. I initially examined her and moved her wrist with passive range of motion with no evidence of discomfort. Patient slipped and fell in the bedroom at home landing on an outstretched left arm. She denies striking head there is no loss consciousness. Patient has a history of breast cancer was initially diagnosed with stage III in 2014 recently found metastatic lesions to the pelvis some lumbar and thoracic spine. She denies any other injury at this time she not strike her head there is no loss consciousness MD Complaint: extremity pain Onset (ago): minute(s) Pain Consistency: constant Location: left and upper extremity Relieving factors: nothing Exacerbating factors: nothing Associated symptoms: Deny arthralgias, chest pain, fever(s), myalgias, rash or short of breath Review of Systems Const: Denies: fever(s) Card: Denies: chest pain Resp: Denies: dyspnea GI: Denies: abdominal pain : Denies: dysuria, urinary frequency or urinary urgency Musc: Denies: neck pain or back pain Skin/Breast: Denies: rash PFSH ED PFSH: Medical History Acute kidney injury superimposed on chronic kidney disease Acute on chronic anemia Acute on chronic systolic heart failure Acute renal failure Alcoholism in recovery Anemia Atrial fibrillation Breast CA Breast cancer Breast cancer Cardiac resynchronization therapy defibrillator (CURTAIN HEMMER AUTOMATIC-D) in place Cardiomyopathy Carotid stenosis, bilateral CHF (congestive heart failure) Chronic kidney disease Chronic systolic heart failure CKD (chronic kidney disease) Claudication Confusion COPD (chronic obstructive pulmonary disease) CVA (cerebral vascular accident) DJD (degenerative joint disease), lumbar History of gastric ulcer HTN (hypertension) Hypotension ICD (implantable cardioverter-defibrillator) in place Iron deficiency anemia Mitral regurgitation Non-ischemic cardiomyopathy Occult blood positive stool Orthostatic dizziness VALE on CPAP Peripheral arterial disease Peripheral vascular disease Pneumonia Presence of Watchman left atrial appendage closure device Presence of Watchman left atrial appendage closure device PUD (peptic ulcer disease) PVCs (premature ventricular contractions) Surgical History History of cardiac radiofrequency ablation History of resection of meningioma Previous back surgery S/P cataract extraction S/P lumpectomy of breast Family History Sister Cancer Social History Smoking and tobacco/nicotine status: former use of tobacco/nicotine Quit status (tobacco/nicotine): has quit using Year quit tobacco: 2013 Former quit date comment: Smoked for 40+ years Alcohol intake: former Substance/Drug Use: never Household members: spouse Marital status: Physical Exam Const: COMMON NORMALS: no acute distress GENERAL APPEARANCE: cooperative and comfortable ORIENTATION/CONSCIOUSNESS: Yes awake, Yes oriented to person, Yes oriented to place and Yes oriented to time HENMT: COMMON NORMALS: normocephalic, atraumatic and hearing grossly normal bilaterally HEAD & SCALP: normocephalic and atraumatic Resp: COMMON NORMALS: normal respiratory effort, No retractions, No use of accessory muscles and clear to auscultation bilaterally AUSCULTATION: clear to auscultation bilaterally Cardio: COMMON NORMALS: regular rate, regular rhythm and No murmurs present (Cardio) RATE: regular rate RHYTHM: regular rhythm GI: COMMON NORMALS: Soft to palpation and No hepatosplenomegaly present AUSCULTATION: Yes normoactive bowel sounds PALPATION: Yes Soft to palpation, No Tenderness to palpation present (GI), No Guarding due to palpation present (GI) and Yes No hepatosplenomegaly present Extremity: COMMON NORMALS: normal to inspection, capillary refill normal, no clubbing, cyanosis or edema, no calf tenderness and no pedal edema Neuro: SENSORIUM/ORIENTATION: Yes oriented to person, Yes oriented to place and Yes oriented to time Skin: COMMON NORMALS: no rashes or lesions noted GENERAL SKIN EXAM: no rashes or lesions noted Course Vital Signs: Vital signs: Vital Signs Temperature 98.8 F 03/22/23 07:15 Pulse Rate 78 03/22/23 09:08 Respiratory Rate 17 03/22/23 09:08 Blood Pressure 124/63 03/22/23 09:08 Pulse Oximetry 99 03/22/23 09:08 Oxygen Delivery Me thod Room Air 03/22/23 07:23 MDM - Extremity (Nontraumatic) Medical Decision Making Sling arm anti-inflammatories refer to Ortho. Avoid using arm and extended positions or working above shoulder level. Follow-up with Ortho Case management to make arrangements. Medical Records I reviewed the patient's medical records. Lab Data I reviewed the patient's lab results. Radiology Impressions Forearm X-Ray 03/22/23 07:13 IMPRESSION: There is an impacted and slightly fragmented fracture of the distal radius demonstrated. Wrist X-Ray 03/22/23 07:44 IMPRESSION: There is an impacted fracture of the distal radius demonstrated with slight dorsal fragmentation on the lateral view. All radiology interpretation(s) finalized by discharge Discharge Plan Discharge Patient Disposition: Home Clinical Impression: Closed fracture of left distal radius, Cough Condition: Stable Prescriptions: New hydrocodone-acetaminophen 5-325 mg tablet 1 tab PO Q6H PRN (Reason: pain) Qty: 10 0RF promethazine-codeine 6.25-10 mg/5 mL syrup 5 ml PO Q4H PRN (Reason: cough) Qty: 473 0RF No Action allopurinol 100 mg tablet 100 mg PO BID ferrous sulfate 325 mg (65 mg iron) tablet 325 mg PO BID magnesium 250 mg tablet 250 mg PO QPM metoprolol tartrate 25 mg tablet 25 mg PO BID metolazone 2.5 mg tablet 2.5 mg PO .COMPLEX Rx Instructions: 2.5 mg orally as directed; albuterol sulfate 90 mcg/actuation HFA aerosol inhaler 2 inh inhalation Q8H PRN (Reason: shortness of breath or wheezing) Qty: 6.7 0RF Rx Instructions: rinse mouth after use prochlorperazine maleate [Compazine] 10 mg tablet 10 mg PO Q8H PRN (Reason: nausea and vomiting) Qty: 30 3RF lorazepam 1 mg tablet 0.5 - 1 mg PO Q8H PRN (Reason: severe nausea/vomiting) Qty: 30 2RF acetaminophen 325 mg capsule 650 mg PO BID pantoprazole 40 mg tablet,delayed release (DR/EC) 40 mg PO DAILY Qty: 90 3RF clopidogrel 75 mg tablet 75 mg PO QPM Qty: 90 3RF Hold Instructions: Resume on 07/06/22. pregabalin [Lyrica] 50 mg capsule 50 mg PO BID Qty: 60 5RF ribociclib 200 mg/day (200 mg x 1) tablet 200 mg PO DAILY Qty: 21 0RF Rx Instructions: administer for 21 days; off 7 days per 28-day cycle potassium chloride 10 mEq tablet,ER particles/crystals 10 meq PO DAILY Farxiga 10 mg tablet 10 mg PO QAM torsemide 20 mg tablet See Rx Instructions .ROUTE .COMPLEX Rx Instructions: 40 mg orally in the morning / 20 mg orally in the evening Discharge Orders: Discharge ED (Routine); Ordered 03/22/23 Ordered By: Dandre Marie Referrals: Janie Agustin MD [Primary Care Provider] - Discharge Diet: Usual diet Discharge Activity: Increase activity as tolerated Patient Instructions: Opioid Safety, Pain Management Activity Restrictions/Additional Instructions: Thank you for choosing [facility] for your healthcare needs today. Please realize this is an emergency room and that we are providing you with a medical screening exam and this may not be complete and all inclusive of all the testing and or work up that you may need to determine your ailment or severity of your illness. It is very important that you follow up as instructed or that you return to the Emergency Department should you have concerns or if your condition changes or worsens in any way. You are seen today after a fall with right forearm pain x-ray showed a distal right radius fracture. You are placed in a splint. database manager will make arrangements for follow-up with orthopedics. Coding Level of Care Code ED Shade Cloth Finisher for Maday Shi
--- NOTE | 2023-03-22 08:09 | PC.NURSE ---
pts at bedside, pt appears to be resting comfortably, pt respirations even and unlabored at this time. pts states he will take pt home upon d/c.
--- NOTE | 2023-03-22 09:07 | DCPLANNER ---
Referral was sent to ortho on 03/22/23 at 0907. Clinic to contact patient.
[2023-03-22 09:08] VITALS: BP 124/63; PULSE 78; RESP 17; O2SAT 99
== END 2023-03-22 09:11 | disposition home or self-care (01) ==
PROVIDERS: Emergency Provider Family Medicine; PCP Internal Medicine
DX: S52.501A Unspecified fracture of the lower end of right radius, initial encounter for closed fracture (principal); R05.9 Cough, unspecified; Z79.02 Long term (current) use of antithrombotics/antiplatelets; Z87.891 Personal history of nicotine dependence; I13.0 Hypertensive heart and chronic kidney disease with heart failure and stage 1 through stage 4 chronic kidney disease, or unspecified chronic kidney disease; N18.9 Chronic kidney disease, unspecified; I50.9 Heart failure, unspecified; Z85.3 Personal history of malignant neoplasm of breast; J44.9 Chronic obstructive pulmonary disease, unspecified; Z86.73 Personal history of transient ischemic attack (TIA), and cerebral infarction without residual deficits; Z95.810 Presence of automatic (implantable) cardiac defibrillator; W01.0XXA Fall on same level from slipping, tripping and stumbling without subsequent striking against object, initial encounter
CPT/HCPCS: 73090; 73110; 99284

== ENCOUNTER 2023-03-22 14:00 | Oncology outpatient (recurring) (ONCR) | payer MEDICARE, OTHER, SELFPAY ==
[2023-03-02] MEDS: fulvestrant 250 mg/5 mL Syringe 500 MG IM (15:42)
[2023-03-04 14:28] VITALS: BP 118/77; PULSE 70; RESP 17; TEMP 36.4; O2SAT 96
[2023-03-04 14:35] LABS: Basophils % 0.7 %; Eosinophils # 0.1 10^3/uL (0.0-0.8); Eosinophils % 2.5 %; Hematocrit 39.1 % (36-47); Lymphocytes # 0.8 10^3/uL (0.8-4.8); Lymphocytes % 19.8 %; Mean Corpuscular HGB Conc 29.7 g/dL (30-55); Mean Corpuscular Hemoglobin 30.4 pg (27-33); Mean Corpuscular Volume 102.6 fl (85-98); Mean Platelet Volume 12.2 fL (7.4-10.4); Monocytes # 0.5 10^3/uL (0.2-0.9); Monocytes % 11.6 %; Neutrophils # 2.63 10^3/uL (1.8-7.7); Neutrophils % 65.2 %; Nucleated Red Blood Cells % 0 %; Platelet Count 145 10^3/cmm (157-399); Red Blood Count 3.81 10^6/uL (3.85-5.65); Red Cell Distribution Width 17.4 % (12.1-15.1); White Blood Count 4.04 10^3/uL (3.29-11.43)
[2023-03-04 15:19] LABS: Alanine Aminotransferase 14 U/L (0-33); Albumin Level 3.6 g/dL (3.5-5.2); Alkaline Phosphatase 140 U/L (35-105); Anion Gap 18.4 (5-19); Aspartate Amino Transferase 24 U/L (0-32); Blood Urea Nitrogen 51 mg/dL (8-23); CA 15-3 86.8 U/mL (0-25); Calcium 9.2 mg/dL (8.5-10.5); Carbon Dioxide 25 mmol/L (22-29); Chloride 102 mmol/L (98-107); Globulin 2.6 g/dL (1.3-4.6); Glucose 103 mg/dL (65-115); Osmolality Calculated 308 mOsm/kg (285-295); Potassium 3.4 mmol/L (3.5-5.1); Sodium 142 mmol/L (136-145); Total Bilirubin 0.9 mg/dL (0.15-1.2); Total Protein 6.2 g/dL (6.6-8.7)
[2023-03-05 12:49] LABS: CA 27.29 108 U/mL (<38)
[2023-03-16 08:15] VITALS: BP 116/72; PULSE 70; RESP 20; TEMP 36.3; O2SAT 99
[2023-03-16 08:56] LABS: Basophils % 1.1 %; Eosinophils # 0.1 10^3/uL (0.0-0.8); Eosinophils % 2.6 %; Hematocrit 40.2 % (36-47); Lymphocytes # 0.5 10^3/uL (0.8-4.8); Lymphocytes % 13.4 %; Mean Corpuscular HGB Conc 30.1 g/dL (30-55); Mean Corpuscular Hemoglobin 30.4 pg (27-33); Mean Platelet Volume 11.9 fL (7.4-10.4); Monocytes # 0.6 10^3/uL (0.2-0.9); Monocytes % 16.8 %; Neutrophils # 2.31 10^3/uL (1.8-7.7); Neutrophils % 65.8 %; Nucleated Red Blood Cells % 0.6 %; Platelet Count 143 10^3/cmm (157-399); Red Blood Count 3.98 10^6/uL (3.85-5.65); Red Cell Distribution Width 18.6 % (12.1-15.1); White Blood Count 3.51 10^3/uL (3.29-11.43)
[2023-03-16 09:17] LABS: Alanine Aminotransferase 14 U/L (0-33); Albumin Level 3.4 g/dL (3.5-5.2); Alkaline Phosphatase 187 U/L (35-105); Aspartate Amino Transferase 37 U/L (0-32); Blood Urea Nitrogen 64 mg/dL (8-23); Calcium 9.1 mg/dL (8.5-10.5); Carbon Dioxide 29 mmol/L (22-29); Chloride 93 mmol/L (98-107); Glucose 95 mg/dL (65-115); Osmolality Calculated 304 mOsm/kg (285-295); Sodium 138 mmol/L (136-145); Total Bilirubin 1.1 mg/dL (0.15-1.2); Total Protein 6.4 g/dL (6.6-8.7)
[2023-03-16 09:20] LABS: Anion Gap 19.4 (5-19); Potassium 3.4 mmol/L (3.5-5.1)
[2023-03-16] MEDS: fulvestrant 250 mg/5 mL Syringe 500 MG IM (11:32)
[2023-03-18 09:38] LABS: Ferritin 101 ng/mL (15-150); Iron 35 ug/dL (37-145)
[2023-03-18 09:39] LABS: Percent Saturation 9.4 % (20-50); Total Iron Binding Capacity 369 mcg/dl; Unsaturated Iron Binding 334 ug/dL (112-347)
[2023-03-22] MEDS: sodium chloride 0.9% 250 ML 75 ML IV (14:48)
[2023-03-22] MEDS: ferric carboxy (IVPB) 750 MG in sodium chloride 0.9% (100 ml) 100 ML 345 MG IV (14:50)
[2023-03-22 15:18] VITALS: BP 118/66; PULSE 77; RESP 16; TEMP 35.6; O2SAT 93
== END 2023-03-23 23:59 | disposition home or self-care (01) ==
PROVIDERS: Internal Medicine Medical Oncology; Nurse Practitioner Family; PCP Internal Medicine; Visit Provider Radiology Radiation Oncology
DX: Z08 Encounter for follow-up examination after completed treatment for malignant neoplasm (principal); Z85.3 Personal history of malignant neoplasm of breast; D50.9 Iron deficiency anemia, unspecified; M81.0 Age-related osteoporosis without current pathological fracture; M19.072 Primary osteoarthritis, left ankle and foot; R74.8 Abnormal levels of other serum enzymes; Z79.899 Other long term (current) drug therapy; Z92.21 Personal history of antineoplastic chemotherapy; Z92.3 Personal history of irradiation; Z87.891 Personal history of nicotine dependence; C50.919 Malignant neoplasm of unspecified site of unspecified female breast; C79.51 Secondary malignant neoplasm of bone; C50.411 Malignant neoplasm of upper-outer quadrant of right female breast
CPT/HCPCS: 36415; 80053; 82728; 83540; 83550; 85025; 86300; 96365; 99215; J1439; J7050; J9395

== ENCOUNTER 2023-03-22 17:57 | Inpatient (IN) | payer MEDICARE, OTHER, SELFPAY ==
[2023-03-22] VITALS (8 sets, daily range): BP systolic 117–144; BP diastolic 62–111; PULSE 66–82; RESP 19–20; TEMP 36.3; O2SAT 87–97; BMI 29.5
--- NOTE | 2023-03-22 19:06 | XRR_ITS ---
PROCEDURE INFORMATION: Exam: XR Chest Exam date and time: 03/22/2023 7:11 PM Age: 77 years old Clinical indication: Other: Weakness; Prior surgery; Surgery date: 6+ months; Surgery type: Breast pacemaker; Additional info: AMS TECHNIQUE: Imaging protocol: Radiologic exam of the chest. Views: 1 view. COMPARISON: CR (CHEST, ) 01/25/2023 6:30 PM FINDINGS: Tubes, catheters and devices: Patient has a left atrial appendage occluder. There is a left subclavian pacemaker in position. Lungs: No consolidation. There is diffuse interstitial thickening/scarring. Pleural spaces: No pleural effusion. No pneumothorax. Heart/Mediastinum: There is cardiomegaly. Bones/joints: Unremarkable. XR/XR chest 1V portable [id number] IMPRESSION: No acute cardiopulmonary disease.
--- NOTE | 2023-03-22 19:06 | CTR_ITS ---
PROCEDURE INFORMATION: Exam: CT Head Without Contrast Exam date and time: 03/22/2023 7:53 PM Age: 77 years old Clinical indication: Altered mental status/memory loss; Confusion or disorientation; Additional info: AMS TECHNIQUE: Imaging protocol: Computed tomography of the head without contrast. Radiation optimization: All CT scans at this facility use at least one of these dose optimization techniques: automated exposure control; mA and/or kV adjustment per patient size (includes targeted exams where dose is matched to clinical indication); or iterative reconstruction. REPORTING DATA: Count of CT and Cardiac NM exams in prior 12 months: This patient has received 4 known CTs and 0 known cardiac nuclear medicine studies in the 12 months prior to the current study. COMPARISON: CT head thrombolytic [id number] 01/20/2023 4:29 PM RADIATION DOSE METRICS: Total DLP (mGy-cm): 1135.15 FINDINGS: Brain: There is cerebral atrophy which is age appropriate. There is focal encephalomalacia noted in the right frontal lobe. No hemorrhage. Diffuse periventricular white matter disease. No mass effect. The basal cisterns are patent. Cerebral ventricles: Ventriculomegaly secondary to age-appropriate cerebral atrophy. Paranasal sinuses: Visualized sinuses are unremarkable. No fluid levels. Mastoid air cells: Visualized mastoid air cells are well aerated. Bones/joints: No acute fracture. Patient is status post frontal craniotomy. Soft tissues: Unremarkable. CT/CT head wo con* [id number] IMPRESSION: No acute intracranial abnormality.
[2023-03-22 19:20] LABS: Basophils % 0.4 %; Eosinophils % 0.4 %; Hematocrit 44.3 % (36-47); Lymphocytes # 0.8 10^3/uL (0.8-4.8); Lymphocytes % 14.3 %; Mean Corpuscular HGB Conc 29.8 g/dL (30-55); Mean Corpuscular Hemoglobin 30.5 pg (27-33); Mean Corpuscular Volume 102.3 fl (85-98); Mean Platelet Volume 12.1 fL (7.4-10.4); Monocytes # 0.5 10^3/uL (0.2-0.9); Monocytes % 9.4 %; Neutrophils # 4.21 10^3/uL (1.8-7.7); Neutrophils % 74.3 %; Nucleated Red Blood Cells # 0.1 /100WBC; Nucleated Red Blood Cells % 1.6 %; Platelet Count 170 10^3/cmm (157-399); Red Blood Count 4.33 10^6/uL (3.85-5.65); White Blood Count 5.66 10^3/uL (3.29-11.43)
--- NOTE | 2023-03-22 19:36 | ECG_ITS ---
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 Measurements Intervals [place] Rate: 74 P: 0 NV: 0 QRS: -89 QRSD: 214 T: 90 QT: 544 QTc: 605 Interpretive Statements ELECTRONIC VENTRICULAR PACEMAKER PROLONGED QT INTERVAL Compared to ECG 01/25/2023 18:11:16 Prolonged QT interval now present Electronically Signed On 03-22-2023 23:32:10 CDT by Raji Wong M.D. [id number]
--- NOTE | 2023-03-22 19:41 | ED_ITS ---
HPI - Altered Mental Status General: Chief Complaint: Altered Mental Status Stated Complaint: weakness Time Seen by Provider: 03/22/23 19:06 Source: patient Mode of arrival: ambulatory Limitations: no limitations History of Present Illness: 77-year-old female with a history of metastatic breast cancer states that over the last 2 to 3 days she has had increasing weakness along with some lethargy. He states that she fell this morning she was seen here did have a wrist fracture she is placed on hydrocodone states that her confusion and lethargy is gotten worse she is taken 2 doses hydrocodone today here she is extremely lethargic she is able to tell me her name but she does not know where she is does not know the date either. He did not witness the fall earlier she denied hitting her head with the fall Review of Systems General: Reports: ROS unobtainable due to mental status PFSH ED PFSH: Medical History Acute kidney injury superimposed on chronic kidney disease Acute on chronic anemia Acute on chronic systolic heart failure Acute renal failure Alcoholism in recovery Anemia Atrial fibrillation Breast CA Breast cancer Breast cancer Cardiac resynchronization therapy defibrillator (MEDIA SENIOR RECRUITER-D) in place Cardiomyopathy Carotid stenosis, bilateral CHF (congestive heart failure) Chronic kidney disease Chronic systolic heart failure CKD (chronic kidney disease) Claudication Confusion COPD (chronic obstructive pulmonary disease) CVA (cerebral vascular accident) DJD (degenerative joint disease), lumbar History of gastric ulcer HTN (hypertension) Hypotension ICD (implantable cardioverter-defibrillator) in place Iron deficiency anemia Mitral regurgitation Non-ischemic cardiomyopathy Occult blood positive stool Orthostatic dizziness VALE on CPAP Peripheral arterial disease Peripheral vascular disease Pneumonia Presence of Watchman left atrial appendage closure device Presence of Watchman left atrial appendage closure device PUD (peptic ulcer disease) PVCs (premature ventricular contractions) Surgical History History of cardiac radiofrequency ablation History of resection of meningioma Previous back surgery S/P cataract extraction S/P lumpectomy of breast Family History Sister Cancer Social History Smoking and tobacco/nicotine status: former use of tobacco/nicotine Quit status (tobacco/nicotine): has quit using Year quit tobacco: 2013 Former quit date comment: Smoked for 40+ years Alcohol intake: former Substance/Drug Use: never Household members: spouse Marital status: Physical Exam Const: COMMON NORMALS: negative for patient oriented x3 GENERAL APPEARANCE: lethargic ORIENTATION/CONSCIOUSNESS: Yes lethargic HENMT: COMMON NORMALS: normocephalic and atraumatic HEAD & SCALP: normoce phalic and atraumatic THROAT: posterior oropharynx normal Eye: COMMON NORMALS: conjunctivae normal CONJUNCTIVA: Yes conjunctivae normal Neck/C-Spine: COMMON NORMALS: full ROM and supple Chest: COMMONS NORMALS: normal inspection of the chest and normal palpation of entire chest wall Resp: COMMON NORMALS: normal respiratory effort and clear to auscultation bilaterally AUSCULTATION: clear to auscultation bilaterally GI: COMMON NORMALS: Normal to inspection, nondistended, normoactive bowel sounds present, Soft to palpation and non-tender PALPATION: Yes Soft to palpation Back/Pelvis: COMMON NORMALS: thoracic and lumbar spine normal to inspection and no thoracic nor lumbar tenderness Neuro: COMMON NORMALS: negative for patient oriented x3 SENSORIUM/ORIENTATION: Yes lethargic Psych: COMMON NORMALS: negative for mental status grossly normal Skin: COMMON NORMALS: no rashes or lesions noted GENERAL SKIN EXAM: no rashes or lesions noted Course Vital Signs: Vital signs: Vital Signs Temperature 97.4 F L 03/22/23 18:36 Pulse Rate 69 03/22/23 18:36 Respiratory Rate 20 H 03/22/23 18:36 Blood Pressure 117/62 03/22/23 18:36 Pulse Oximetry 95 03/22/23 18:36 Oxygen Delivery Me thod Room Air 03/22/23 18:36 MDM - Altered Mental Status Medical Decision Making Patient presents with altered mental status along with lethargy partly likely due to her new pain medication she does have some slight dehydration here as well will admit for observation Medical Records I reviewed the patient's medical records. Lab Data I reviewed the patient's lab results. 03/22/23 18:55 03/22/23 20:14 Radiology Impressions Chest X-Ray 03/22/23 19:06 IMPRESSION: No acute cardiopulmonary disease. Head CT 03/22/23 19:06 IMPRESSION: No acute intracranial abnormality. Laboratory Results WBC 5.66 10^3/uL (3.29-11.43) 03/22/23 18:55 RBC 4.33 10^6/uL (3.85-5.65) 03/22/23 18:55 Hgb 13.20 g/dL (11.27-16.99) 03/22/23 18:55 Hct 44.3 % (36-47) 03/22/23 18:55 MCV 102.3 fl (85-98) H 03/22/23 18:55 MCH 30.5 pg (27-33) 03/22/23 18:55 MCHC 29.8 g/dL (30-55) L 03/22/23 18:55 RDW 19.0 % (12.1-15.1) H 03/22/23 18:55 Plt Count 170 10^3/cmm (157-399) 03/22/23 18:55 MPV 12.1 fL (7.4-10.4) H 03/22/23 18:55 Neut % (Auto) 74.3 % 03/22/23 18:55 Lymph % (Auto) 14.3 % 03/22/23 18:55 Garfield % (Auto) 9.4 % 03/22/23 18:55 Eos % (Auto) 0.4 % 03/22/23 18:55 Baso % (Auto) 0.4 % 03/22/23 18:55 Neut # (Auto) 4.21 10^3/uL (1.8-7.7) 03/22/23 18:55 Lymph # (Auto) 0.8 10^3/uL (0.8-4.8) 03/22/23 18:55 [place]field # (Auto) 0.5 10^3/uL (0.2-0.9) 03/22/23 18:55 Eos # (Auto) 0.0 10^3/uL (0.0-0.8) 03/22/23 18:55 Baso # (Auto) 0.0 10^3/uL (0.0-0.1) 03/22/23 18:55 Nucleated RBC % (auto) 1.6 % 03/22/23 18:55 Nucleated RBCs # 0.1 /100WBC 03/22/23 18:55 PT 15.70 SECONDS (12.1-14.9) H 03/22/23 18:55 INR 1.21 (0.8-1.2) H 03/22/23 18:55 Sodium 140 mmol/L (136-145) 03/22/23 20:14 Potassium 3.4 mmol/L (3.5-5.1) L 03/22/23 20:14 Chloride 95 mmol/L (98-107) L 03/22/23 20:14 Carbon Dioxide 29 mmol/L (22-29) 03/22/23 20:14 Anion Gap 19.4 (5-19) H 03/22/23 20:14 BUN 75 mg/dL (8-23) H 03/22/23 20:14 Creatinine 2.6 mg/dL (0.5-0.9) H 03/22/23 20:14 GFR Calculation Not Reportable 03/22/23 20:14 Glucose 97 mg/dL (65-115) 03/22/23 20:14 Calculated Osmolality 312 mOsm/kg (285-295) H 03/22/23 20:14 Calcium 9.3 mg/dL (8.5-10.5) 03/22/23 20:14 Magnesium 3.7 mg/dL (1.7-2.3) H 03/22/23 20:14 Total Bilirubin 1.3 mg/dL (0.15-1.2) H 03/22/23 20:14 AST 52 U/L (0-32) H 03/22/23 20:14 ALT 25 U/L (0-33) 03/22/23 20:14 Alkaline Phosphatase 207 U/L (35-105) H 03/22/23 20:14 Ammonia 41 umol/L (11-51) 03/22/23 18:55 Troponin T Baseline 59 ng/L (0-10) H 03/22/23 20:14 Total Protein 6.4 g/dL (6.6-8.7) L 03/22/23 20:14 Albumin 3.5 g/dL (3.5-5.2) 03/22/23 20:14 Globulin 2.9 g/dL (1.3-4.6) 03/22/23 20:14 TSH 4.20 uIU/mL (0.27-4.20) 03/22/23 20:14 Urine Color Yellow (Yellow) 03/22/23 20:30 Urine Appearance Clear (CLEAR) 03/22/23 20:30 Urine pH 5 (5-7) 03/22/23 20:30 Ur Specific [place] 1.015 (1.005-1.030) 03/22/23 20:30 Urine Protein Neg (Negative) 03/22/23 20:30 Urine Glucose (UA) Norm (Normal) 03/22/23 20:30 Urine Ketones 1+ (Negative) H 03/22/23 20:30 Urine Blood Neg (Negative) 03/22/23 20:30 Urine Nitrate Negative (Negative) 03/22/23 20:30 Urine Bilirubin Neg (Negative) 03/22/23 20:30 Urine Urobilinogen Norm mg/dL (Negative) 03/22/23 20:30 Ur Leukocyte Esterase Negative (Negative) 03/22/23 20:30 All radiology interpretation(s) finalized by discharge Discharge Plan Discharge Patient Disposition: Admitted As Inpatient Clinical Impression: Altered mental status Condition: Stable Prescriptions: No Action allopurinol 100 mg tablet 100 mg PO BID ferrous sulfate 325 mg (65 mg iron) tablet 325 mg PO BID magnesium 250 mg tablet 250 mg PO QPM metoprolol tartrate 25 mg tablet 25 mg PO BID metolazone 2.5 mg tablet 2.5 mg PO .COMPLEX Rx Instructions: 2.5 mg orally as directed; albuterol sulfate 90 mcg/actuation HFA aerosol inhaler 2 inh inhalation Q8H PRN (Reason: shortness of breath or wheezing) Qty: 6.7 0RF Rx Instructions: rinse mouth after use prochlorperazine maleate [Compazine] 10 mg tablet 10 mg PO Q8H PRN (Reason: nausea and vomiting) Qty: 30 3RF lorazepam 1 mg tablet 0.5 - 1 mg PO Q8H PRN (Reason: severe nausea/vomiting) Qty: 30 2RF acetaminophen 325 mg capsule 650 mg PO BID pantoprazole 40 mg tablet,delayed release (DR/EC) 40 mg PO DAILY Qty: 90 3RF clopidogrel 75 mg tablet 75 mg PO QPM Qty: 90 3RF Hold Instructions: Resume on 07/06/22. pregabalin [Lyrica] 50 mg capsule 50 mg PO BID Qty: 60 5RF Piqray 300 mg/day (150 mg x 2) tablet 300 mg PO DAILY Qty: 28 12RF potassium chloride 10 mEq tablet,ER particles/crystals 10 meq PO DAILY Farxiga 10 mg tablet 10 mg PO QAM torsemide 20 mg tablet See Rx Instructions .ROUTE .COMPLEX Rx Instructions: 40 mg orally in the morning / 20 mg orally in the evening hydrocodone-acetaminophen 5-325 mg tablet 1 tab PO Q6H PRN (Reason: pain) Qty: 10 0RF promethazine-codeine 6.25-10 mg/5 mL syrup 5 ml PO Q4H PRN (Reason: cough) Qty: 473 0RF Referrals: Janie Agustin MD [Primary Care Provider] - Patient Instructions: Hyponatremia (ED), Benzodiazepine Use Disorder (ED), Dementia (ED), Non-diabetic Hypoglycemia (ED), Hypoglycemia in a Person with Diabetes (ED), Concussion (ED), Alcohol Intoxication (ED), Subarachnoid Hemorrhage (GEN), Altered Mental Status (ED) Coding Level of Care Code ED Section Repairer for Maday Shi
[2023-03-22 19:42] LABS: INR 1.21 (0.8-1.2)
[2023-03-22 20:07] LABS: Ammonia 41 umol/L (11-51)
[2023-03-22 20:38] LABS: Add Urine Microscopic? NO; Charge for UA Resulting for Rev
[2023-03-22 20:44] LABS: Urine Appearance Clear (CLEAR); Urine Color Yellow (Yellow); pH Urine 5 (5-7)
[2023-03-22 20:45] LABS: Bilirubin Urine Neg (Negative); Blood Urine Neg (Negative); Glucose Urine UA Norm (Normal); Ketones Urine 1+ (Negative); Leukocyte Esterase Urine Negative (Negative); Nitrate Urine Negative (Negative); Protein Urine Neg (Negative); Specific Gravity, Urine 1.015 (1.005-1.030); Urobilinogen Urine Norm (Negative)
[2023-03-22 20:54] LABS: Troponin(5th) Baseline 59 ng/L (0-10)
[2023-03-22 21:06] LABS: Alanine Aminotransferase 25 U/L (0-33); Albumin Level 3.5 g/dL (3.5-5.2); Alkaline Phosphatase 207 U/L (35-105); Anion Gap 19.4 (5-19); Aspartate Amino Transferase 52 U/L (0-32); Blood Urea Nitrogen 75 mg/dL (8-23); Calcium 9.3 mg/dL (8.5-10.5); Carbon Dioxide 29 mmol/L (22-29); Chloride 95 mmol/L (98-107); Globulin 2.9 g/dL (1.3-4.6); Glucose 97 mg/dL (65-115); Magnesium 3.7 mg/dL (1.7-2.3); Osmolality Calculated 312 mOsm/kg (285-295); Potassium 3.4 mmol/L (3.5-5.1); Sodium 140 mmol/L (136-145); Total Bilirubin 1.3 mg/dL (0.15-1.2); Total Protein 6.4 g/dL (6.6-8.7)
[2023-03-22] MEDS: sodium chloride 0.9% 500 ML 999 ML IV (21:23)
--- NOTE | 2023-03-22 22:11 | ECG_ITS ---
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 Measurements Intervals [place] Rate: 71 P: 0 NV: 0 QRS: -86 QRSD: 210 T: 101 QT: 553 QTc: 603 Interpretive Statements ELECTRONIC VENTRICULAR PACEMAKER PROLONGED QT INTERVAL Compared to ECG 03/22/2023 20:06:09 No significant changes Electronically Signed On 03-22-2023 23:31:20 CDT by Raji Wong M.D. [id number]
--- NOTE | 2023-03-22 22:12 | ECG_ITS ---
[facility] Test Date: 2023-03-22 Pat Name: Teena Timmons Department: Room: Gender: Female Rn Surgery: : 1945 Requested By: Paul Bowling Order Number: [id number] Zoe MD: Raji Wong M.D. Measurements Intervals [place] Rate: 78 P: 0 TN: 0 QRS: -88 QRSD: 208 T: 99 QT: 556 QTc: 636 Interpretive Statements ELECTRONIC VENTRICULAR PACEMAKER PROLONGED QT INTERVAL Compared to ECG 03/22/2023 19:36:53 No significant changes Electronically Signed On 03-22-2023 23:32:37 CDT by Raji Wong M.D. [email or web address]/store/[id number]
--- NOTE | 2023-03-22 22:18 | PC.NURSE ---
Report called to LANNY Wood on Med-Surg. All questions and concerns addressed at time of report.
[2023-03-22 22:52] LABS: Troponin 5 2HR 49.58 ng/L (0-10)
--- NOTE | 2023-03-22 23:19 | PM.HP ---
Providers/Chief Complaint Admitting Physician: Katty Brennan MD Primary Care Provider: Janie Agustin MD Chief Complaint: weakness History of Present Illness Teena Timmons is a 77 year old female with a past medical history of breast cancer with bone metastases, currently on ribociclic, presenting to the hospital with 2 to 3 days of increasing generalized fatigue and lethargy. Patient initially presented to the ER this morning after having sustained a mechanical fall, patient states she tripped and fell and sustained a fracture of the wrist. Her wrist was splinted. She was given hydrocodone for pain management. She was referred to see orthopedics as outpatient however return to the emergency room later in the evening due to worsening somnolence and lethargy. There is no history of head injury. CT of the head was completed negative for any acute intracranial events. is not currently available at bedside, history obtained by talking to the patient and the ER physician. Patient recalls having fallen at home which resulted in the fracture at her wrist but does not remember the subsequent events of the day. At this present time she complains of overall fatigue and lethargy. She is correctly able to tell me her name, age and date of and the fact that she is in the hospital, however goes right back to sleep. Review of Systems General: Reports: 10 or more systems reviewed and unremarkable except in HPI and below Const: Denies: fever(s), chills or body aches Eyes: Denies: change in vision, blurry vision or photophobia ENMT: Reports: hoarseness; Denies: throat pain, enlarged tonsils, odynophagia or nasal congestion Card: Denies: chest pain, palpitations, irregular heart rhythm, edema, swelling of feet/ankles, lightheadedness, pre-syncope, dyspnea on exertion or orthopnea Resp: Denies: dyspnea, productive cough, non-productive cough, wheezing, stridor, pain on inspiration, change in phlegm color, hemoptysis or chest congestion GI: Denies: abdominal pain, nausea, vomiting, hematemesis, coffee ground emesis, dysphagia, heartburn, diarrhea, constipation, GI cramping, change in stool character, hematochezia or melena : Denies: flank pain, difficulty voiding, dysuria, urinary frequency, urinary urgency, urinary hesitancy or hematuria Musc: Denies: neck pain, back pain, extremity pain, joint swelling, joint warmth or deformity Neuro: Denies: headache(s), numbness in extremities, weakness in extremities, sensory changes, difficulty walking, frequent falls, dizziness, vertigo, behavioral changes, Slurred speech present or seizure-like activity Psych: Denies: anxiety, depression, suicidal ideation or homicidal ideation Endo: Denies: polyuria, polydipsia, tired all the time, cold intolerance or hot flashes Yovanny/Lymph: Denies: easy bruising or easy bleeding Medications/Allergies Home Medications Medication Instructions Recorded Confirmed Last Taken Type ferrous sulfate 325 mg (65 mg 325 mg PO BID 06/28/19 03/22/23 03/21/23 History iron) tablet magnesium 250 mg tablet 250 mg PO QPM 06/28/19 03/22/23 03/21/23 History pantoprazole 40 mg tablet,delayed 40 mg PO DAILY #90 tabs 02/09/22 03/22/23 03/21/23 Rx release acetaminophen 325 mg capsule 650 mg PO BID 06/30/22 03/22/23 03/21/23 History dapagliflozin propanediol 10 mg 10 mg PO QAM 07/04/22 03/22/23 03/21/23 History tablet (Farxiga) potassium chloride 10 mEq 10 meq PO DAILY 07/04/22 03/22/23 03/21/23 History tablet,extended release(part/cryst) metolazone 2.5 mg tablet 2.5 mg PO .COMPLEX 08/25/22 03/22/23 03/21/23 History clopidogrel 75 mg tablet 75 mg PO QPM #90 tabs 08/26/22 03/22/23 03/21/23 Rx torsemide 20 mg tablet See Rx Instructions .Route .COMPLEX 09/27/22 03/22/23 03/21/23 History allopurinol 100 mg tablet 100 mg PO BID 11/05/22 03/22/23 03/21/23 History metoprolol tartrate 25 mg tablet 25 mg PO BID 11/05/22 03/22/23 03/21/23 History pregabalin 50 mg capsule (Lyrica) 50 mg PO BID #60 caps 01/18/23 03/22/23 03/21/23 Rx albuterol sulfate 90 mcg/actuation 2 inh inhalation Q8H PRN shortness 10/24/23 10/30/23 Unknown Rx aerosol inhaler of breath or wheezing #6.7 grams lorazepam 1 mg tablet 0.5 - 1 mg PO Q8H PRN severe 03/18/23 03/22/23 Unknown Rx nausea/vomiting #30 tabs prochlorperazine maleate 10 mg 10 mg PO Q8H PRN nausea and 03/18/23 03/22/23 Unknown Rx tablet (Compazine) vomiting #30 tabs alpelisib 300 mg/day (150 mg x 2) 300 mg PO DAILY #28 tabs 03/22/23 Unknown Rx tablet (Piqray) hydrocodone 5 mg-acetaminophen 325 1 tab PO Q6H PRN pain #10 tabs 03/22/23 Unknown Rx mg tablet promethazine 6.25 mg-codeine 10 5 ml PO Q4H PRN cough #473 mL 03/22/23 Unknown Rx mg/5 mL syrup Allergies Allergy/AdvReac Type Severity Reaction Status Date / Time Iodinated Contrast Media Allergy Unknown Unknown Verified 03/22/23 18:34 latex Allergy Unknown Hives Verified 03/22/23 18:34 morphine Allergy Unknown Unknown Verified 03/22/23 18:34 Taxwskb-BJS-MrJ Reductase Allergy Unknown ADR-Muscle Verified 03/22/23 18:34 Inhibitor Pain [Xfspdsz-OJM-NjO Reductase Inhibitors] TPA Allergy Unknown ALGY-Anaphy Uncoded 03/16/23 09:36 laxis,ALGY- Anaphylaxis ,ALGY-Anaph ylaxis,ALGY -Anap PFSH Acute PFSH: Medical History Acute kidney injury superimposed on chronic kidney disease Acute on chronic anemia Acute on chronic systolic heart failure Acute renal failure Alcoholism in recovery Anemia Atrial fibrillation Breast CA Breast cancer Breast cancer Cardiac resynchronization therapy defibrillator (GUN PERFORATOR LOADER-D) in place Cardiomyopathy Carotid stenosis, bilateral CHF (congestive heart failure) Chronic kidney disease Chronic systolic heart failure CKD (chronic kidney disease) Claudication Confusion COPD (chronic obstructive pulmonary disease) CVA (cerebral vascular accident) DJD (degenerative joint disease), lumbar History of gastric ulcer HTN (hypertension) Hypotension ICD (implantable cardioverter-defibrillator) in place Iron deficiency anemia Mitral regurgitation Non-ischemic cardiomyopathy Occult blood positive stool Orthostatic dizziness VALE on CPAP Peripheral arterial disease Peripheral vascular disease Pneumonia Presence of Watchman left atrial appendage closure device Presence of Watchman left atrial appendage closure device PUD (peptic ulcer disease) PVCs (premature ventricular contractions) Surgical History History of cardiac radiofrequency ablation History of resection of meningioma Previous back surgery S/P cataract extraction S/P lumpectomy of breast Family History Sister Cancer Social History Smoking and tobacco/nicotine status: former use of tobacco/nicotine Quit status (tobacco/nicotine): has quit using Year quit tobacco: 2013 Former quit date comment: Smoked for 40+ years Alcohol intake: former Substance/Drug Use: never Household members: spouse Marital status: Vitals/I&O/Wt Last Vital Signs Temp 97.4 F L 03/22/23 18:36 Pulse 82 03/22/23 23:10 Resp 19 H 03/22/23 23:10 BP 120/76 03/22/23 23:10 Pulse Ox 90 03/22/23 23:10 O2 Del Method Room Air 03/22/23 22:15 Weight last 48 hrs Weight 83.007 kg Physical Exam Narrative: General: No acute distress, AO x3 HEENT: PERRLA, pupils bilaterally equal and reactive, pallors not present Chest: Normal vesicular breath sounds, no added sounds, equal good air entry bilaterally CVS: S1-S2 regular, no murmurs, no tachycardia, no gallops, no rubs Abdomen: Soft, nontender, no organomegaly, bowel sounds present Neuro: No focal deficits grossly no facial deformity, AO x3, power 5/5 in all limbs Data 03/23/23 02:18 03/23/23 02:18 A&P Assessment and plan (1) Altered mental status: Suspect that this may be related to recent initiation of opiates in her regimen. Hold all opiates for now Patient appears to be slightly dehydrated which may be potentially contributing as well. Hold diuretics Gentle IV fluid hydration with normal saline at 50 cc an hour. Careful hydration given patient has a history of CHF. Check respiratory viral panel as patient noted to be coughing in conversation. (2) Closed fracture of left distal radius: Sustained after mechanical fall per patient Extremities currently splinted We will consult Ortho in a.m. (3) BJ (acute kidney injury): Creatinine today at 2.6, previous baseline appears to be between 1.5-2.0. Patient appears to be clinically dehydrated. Holding diuretics Gentle IV hydration as above (4) Metastatic malignant neoplasm to breast: With metastatic lesions to bones. (5) Cardiac resynchronization therapy defibrillator (GUN PERFORATOR LOADER-D) in place: EKG with paced ventricular rhythm Troponin series with baseline at 59 trending down at 2 hours to 49, pending 6-hour trend. Previous troponin is within 48-80 range. Suspect this is likely related to demand supply mismatch versus dehydration. Low suspicion for ACS. Patient currently denies any chest pain. Attestations Medical Necessity Statement*: Less than 2 midnight admission is anticipated Coding Level of Care Code Acute Code for Chg Fwd Moderate MDM includes number and complexity of problems actively addressed during encounter, amount and/or complexity of data reviewed/ordered and described risk of complication, morbidity or mortality of management as documented Diagnoses Altered mental status R41.82 Closed fracture of left distal radius S52.502A BJ (acute kidney injury) N17.9 Metastatic malignant neoplasm to breast C79.81 Cardiac resynchronization therapy defibrillator (GUN PERFORATOR LOADER-D) in place Z95.810
[2023-03-23] VITALS: BP 120/76; PULSE 82; RESP 19; O2SAT 90
[2023-03-23] MEDS: sodium chloride 0.9% 1,000 ML 50 ML IV (00:11)
--- NOTE | 2023-03-23 01:32 | ECG_ITS ---
[facility] Test Date: 2023-03-23 Pat Name: Teena Timmons Department: Room: 252 Gender: Female Checkerer Hand: : 1945 Requested By: Paul Bowling Order Number: [id number] Zoe MD: Patricia Marshall M.D. Measurements Intervals [place] Rate: 74 P: 0 CO: 0 QRS: -89 QRSD: 206 T: 98 QT: 545 QTc: 608 Interpretive Statements ELECTRONIC VENTRICULAR PACEMAKER PROLONGED QT INTERVAL CRITICAL TEST RESULT Compared to ECG 03/22/2023 22:11:25 No significant changes Electronically Signed On 03-23-2023 8:27:27 CDT by Patricia Marshall M.D. [id number]
[2023-03-23 03:25] LABS: Basophils % 0.3 %; Lymphocytes # 0.6 10^3/uL (0.8-4.8); Mean Corpuscular HGB Conc 30.2 g/dL (30-55); Mean Corpuscular Hemoglobin 31.2 pg (27-33); Mean Corpuscular Volume 103.2 fl (85-98); Mean Platelet Volume 12.3 fL (7.4-10.4); Monocytes # 0.6 10^3/uL (0.2-0.9); Neutrophils # 6.27 10^3/uL (1.8-7.7); Nucleated Red Blood Cells # 0.1 /100WBC; Nucleated Red Blood Cells % 1.7 %; Platelet Count 164 10^3/cmm (157-399); Red Blood Count 4.07 10^6/uL (3.85-5.65); Red Cell Distribution Width 19.1 % (12.1-15.1); White Blood Count 7.54 10^3/uL (3.29-11.43)
[2023-03-23 03:41] VITALS: BP 120/79; PULSE 70; RESP 17; TEMP 36.8; O2SAT 91
[2023-03-23 03:48] LABS: Troponin 5 6HR 53.66 ng/L (0-10)
[2023-03-23 03:49] LABS: Alanine Aminotransferase 26 U/L (0-33); Albumin Level 3.4 g/dL (3.5-5.2); Alkaline Phosphatase 202 U/L (35-105); Anion Gap 23.3 (5-19); Aspartate Amino Transferase 51 U/L (0-32); Carbon Dioxide 22 mmol/L (22-29); Chloride 96 mmol/L (98-107); Globulin 2.2 g/dL (1.3-4.6); Glucose 107 mg/dL (65-115); Magnesium 3.7 mg/dL (1.7-2.3); Osmolality Calculated 312 mOsm/kg (285-295); Potassium 3.3 mmol/L (3.5-5.1); Sodium 138 mmol/L (136-145); Total Bilirubin 1.1 mg/dL (0.15-1.2); Total Protein 5.6 g/dL (6.6-8.7); Troponin 5 6HR Delta -5.34 ng/L (0-12)
[2023-03-23 03:57] LABS: Blood Urea Nitrogen 84 mg/dL (8-23)
[2023-03-23 05:15] LABS: Adenovirus Not Detected (NOT DETECT); Chlamydia Pneumoniae Not Detected (NOT DETECT); Coronavirus 229E,HKU1,NL63,OC4 Not Detected (NOT DETECT); Human Metapneumovirus Not Detected (NOT DETECT); Human Rhinovirus/Enterovirus Not Detected (NOT DETECT); Influenza A Not Detected (NOT DETECT); Influenza A H1 Not Detected (NOT DETECT); Influenza A H1-2009 Not Detected (NOT DETECT); Influenza A H3 Not Detected (NOT DETECT); Influenza B Not Detected (NOT DETECT); Mycoplasma Pneumoniae Not Detected (NOT DETECT); Parainfluenza Virus Type 1 Not Detected (NOT DETECT); Parainfluenza Virus Type 2 Not Detected (NOT DETECT); Parainfluenza Virus Type 3 Not Detected (NOT DETECT); Parainfluenza Virus Type 4 Not Detected (NOT DETECT); Respiratory Syncytial Virus A Not Detected (NOT DETECT); Respiratory Syncytial Virus B Not Detected (NOT DETECT)
[2023-03-23 05:25] LABS: SARS-COV-2 Detected (NOT DETECT)
[2023-03-23 07:22] LABS: C Reactive Protein 82.8 mg/L (0.0-4.9)
[2023-03-23 07:35] VITALS: BP 147/85; PULSE 74; RESP 19; TEMP 36.7; O2SAT 95
--- NOTE | 2023-03-23 07:54 | P.CONIM_ITS ---
Providers/Reason For Consult Consulting Physician/Specialty*: Orthopedics Reason for Consult*: Right wrist pain Attending Physician: Katty Brennan MD Primary Care Provider: Janie Agustin MD History of Present Illness History of Present Illness Teena Timmons is a 77 year old female who tripped and fell early 03/23/2023 sustained injury to her right wrist. She presented to the emergency room where she was evaluated and admitted for more definitive management. Orthopedics was consulted. She was evaluated in room 252 bed 2 with no family present. She had a splint on her right wrist. She states she has pain with movement of the right wrist she has had previous pain in her right hand prior to the fall as well. Denies any elbow or shoulder pain. Reports any movement of the right wrist has recreated increased pain that she describes as aching sharp stabbing in nature. Rest gives her some temporary relief. She denies any neck or back or hip pain. Denies any knee or ankle pain. All of her pain is localized to the right wrist. She denies any loss of conscious in the fall of. Review of Systems General: Reports: 10 or more systems reviewed and unremarkable except in HPI and below Const: Denies: fever(s), chills or body aches Eyes: Denies: change in vision, blurry vision or photophobia ENMT: Reports: hoarseness; Denies: throat pain, enlarged tonsils, odynophagia or nasal congestion Card: Denies: chest pain, palpitations, irregular heart rhythm, edema, swelling of feet/ankles, lightheadedness, pre-syncope, dyspnea on exertion or orthopnea Resp: Denies: dyspnea, productive cough, non-productive cough, wheezing, s tridor, pain on inspiration, change in phlegm color, hemoptysis or chest congestion GI: Denies: abdominal pain, nausea, vomiting, hematemesis, coffee ground emesis, dysphagia, heartburn, diarrhea, constipation, GI cramping, change in stool character, hematochezia or melena : Denies: flank pain, difficulty voiding, dysuria, urinary frequency, urinary urgency, urinary hesitancy or hematuria Musc: Denies: neck pain, back pain, extremity pain, joint swelling, joint warmth or deformity Neuro: Denies: headache(s), numbness in extremities, weakness in extremities, sensory changes, difficulty walking, frequent falls, dizziness, vertigo, behavioral changes, Slurred speech present or seizure-like activity Psych: Denies: anxiety, depression, suicidal ideation or homicidal ideation Endo: Denies: polyuria, polydipsia, tired all the time, cold intolerance or hot flashes Yovanny/Lymph: Denies: easy bruising or easy bleeding Medications/Allergies Home Medications Medication Instructions Recorded Confirmed Last Taken Type ferrous sulfate 325 mg (65 mg 325 mg PO BID 06/28/19 03/22/23 03/21/23 History iron) tablet magnesium 250 mg tablet 250 mg PO QPM 06/28/19 03/22/23 03/21/23 History pantoprazole 40 mg tablet,delayed 40 mg PO DAILY #90 tabs 02/09/22 03/22/23 03/21/23 Rx release acetaminophen 325 mg capsule 650 mg PO BID 06/30/22 03/22/23 03/21/23 History dapagliflozin propanediol 10 mg 10 mg PO QAM 07/04/22 03/22/23 03/21/23 History tablet (Farxiga) potassium chloride 10 mEq 10 meq PO DAILY 07/04/22 03/22/23 03/21/23 History tablet,extended release(part/cryst) metolazone 2.5 mg tablet 2.5 mg PO .COMPLEX 08/25/22 03/22/23 03/21/23 History clopidogrel 75 mg tablet 75 mg PO QPM #90 tabs 08/26/22 03/22/23 03/21/23 Rx torsemide 20 mg tablet See Rx Instructions .Route .COMPLEX 09/27/22 03/22/23 03/21/23 History allopurinol 100 mg tablet 100 mg PO BID 11/05/22 03/22/23 03/21/23 History metoprolol tartrate 25 mg tablet 25 mg PO BID 11/05/22 03/22/23 03/21/23 History pregabalin 50 mg capsule (Lyrica) 50 mg PO BID #60 caps 01/18/23 03/22/23 03/21/23 Rx albuterol sulfate 90 mcg/actuation 2 inh inhalation Q8H PRN shortness 03/16/23 03/22/23 Unknown Rx aerosol inhaler of breath or wheezing #6.7 grams lorazepam 1 mg tablet 0.5 - 1 mg PO Q8H PRN severe 03/18/23 03/22/23 Unknown Rx nausea/vomiting #30 tabs prochlorperazine maleate 10 mg 10 mg PO Q8H PRN nausea and 03/18/23 03/22/23 Unknown Rx tablet (Compazine) vomiting #30 tabs alpelisib 300 mg/day (150 mg x 2) 300 mg PO DAILY #28 tabs 03/22/23 Unknown Rx tablet (Piqray) hydrocodone 5 mg-acetaminophen 325 1 tab PO Q6H PRN pain #10 tabs 03/22/23 Unknown Rx mg tablet promethazine 6.25 mg-codeine 10 5 ml PO Q4H PRN cough #473 mL 03/22/23 Unknown Rx mg/5 mL syrup Allergies Allergy/AdvReac Type Severity Reaction Status Date / Time Iodinated Contrast Media Allergy Unknown Unknown Verified 03/22/23 18:34 latex Allergy Unknown Hives Verified 03/22/23 18:34 morphine Allergy Unknown Unknown Verified 03/22/23 18:34 Cwednwf-XVN-PhO Reductase Allergy Unknown ADR-Muscle Verified 03/22/23 18:34 Inhibitor Pain [Xycodpz-BFR-AlR Reductase Inhibitors] TPA Allergy Unknown ALGY-Anaphy Uncoded 03/16/23 09:36 laxis,ALGY- Anaphylaxis ,ALGY-Anaph ylaxis,ALGY -Anap Current Medications Generic Name Dose Route Start Last Admin Trade Name Freq PRN Reason Stop Dose Admin Sodium Chloride 1,000 mls @ 50 mls/hr 03/22/23 23:30 03/23/23 00:11 Sodium Chloride 0.9% IV 50 mls/hr .Q20H CHINO Administration Pantoprazole Sodium 40 mg 03/23/23 09:00 03/23/23 07:[address] 40 Mg Tablet PO Not Given DAILY CHINO PFSH Acute PFSH: Medical History Acute kidney injury superimposed on chronic kidney disease Acute on chronic anemia Acute on chronic systolic heart failure Acute renal failure Alcoholism in recovery Anemia Atrial fibrillation Breast CA Breast cancer Breast cancer Cardiac resynchronization therapy defibrillator (CORPORATE HUMAN RESOURCES MANAGER-D) in place Cardiomyopathy Carotid stenosis, bilateral CHF (congestive heart failure) Chronic kidney disease Chronic systolic heart failure CKD (chronic kidney disease) Claudication Confusion COPD (chronic obstructive pulmonary disease) CVA (cerebral vascular accident) DJD (degenerative joint disease), lumbar History of gastric ulcer HTN (hypertension) Hypotension ICD (implantable cardioverter-defibrillator) in place Iron deficiency anemia Mitral regurgitation Non-ischemic cardiomyopathy Occult blood positive stool Orthostatic dizziness VALE on CPAP Peripheral arterial disease Peripheral vascular disease Pneumonia Presence of Watchman left atrial appendage closure device Presence of Watchman left atrial appendage closure device PUD (peptic ulcer disease) PVCs (premature ventricular contractions) Surgical History History of cardiac radiofrequency ablation History of resection of meningioma Previous back surgery S/P cataract extraction S/P lumpectomy of breast Family History Sister Cancer Social History Smoking and tobacco/nicotine status: former use of tobacco/nicotine Quit status (tobacco/nicotine): has quit using Year quit tobacco: 2013 Former quit date comment: Smoked for 40+ years Alcohol intake: former Substance/Drug Use: never Household members: spouse Marital status: Vitals/I&O/Wt Last Vital Signs Temp 98.0 F 03/23/23 07:35 Pulse 74 03/23/23 07:35 Resp 19 H 03/23/23 07:35 BP 147/85 03/23/23 07:35 Pulse Ox 95 03/23/23 07:35 O2 Del Method Room Air 03/23/23 07:35 Weight last 48 hrs Weight 183 lb Physical Exam Narrative: Patient is alert and orient x3 is good general appearance normal mood and affect. She has a splint on her right upper extremity she is wiggling her fingers they are warm to the touch with good cap refill. She has palpable pain over the right distal radius and right basilar thumb region. Difficult to appreciate any snuffbox tenderness. She has no palpable pain over the right elbow or shoulder. No palpable pain in the cervical spine. No palpable pain in the thoracic or lumbar region. She has full range of motion of the left upper extremity at the shoulder elbow and wrist. No palpable pain in the lower extremities negative logroll bilaterally no palpable pain in the knees or ankles she can wiggle all digits dorsiflex and plantarflex without any problem. Calves are supple no medial thigh tenderness. HENMT: COMMON NORMALS: normocephalic HEAD & SCALP: normocephalic Resp: COMMON NORMALS: normal respiratory effort Cardio: COMMON NORMALS: regular rate and regular rhythm RATE: regular rate RHYTHM: regular rhythm GI: COMMON NORMALS: Soft to palpation and non-tender PALPATION: Yes Soft to palpation : COMMON NORMALS: Yes no CVA tenderness BLADDER/KIDNEY EXAM: Yes no CVA tenderness Back/Pelvis: COMMON NORMALS: no CVA tenderness Psych: COMMON NORMALS: cooperative Data 03/23/23 02:18 03/23/23 02:18 A&P Assessment and plan (1) Closed fracture of right distal radius: Discussed we will place her in a Velcro wrist splint to the right wrist. No use of the right hand. We will see her back in the office in 1 week's time for a new x-ray with evaluation. Coding Level of Care Code Acute Code for [facility] Fwd Diagnoses Closed fracture of right distal radius S52.501A
[2023-03-23] MEDS: dexamethasone 4 mg/mL INJ 6 MG IVP (07:57)
[2023-03-23] MEDS: levoFLOXacin 750 mg Tablet PO (07:57)
[2023-03-23] MEDS: lidocaine 1% 5 ML in potassium chloride premix 100 ML 26.25 ML IV (07:58)
[2023-03-23 08:05] VITALS: BP 147/85; PULSE 74; RESP 19; TEMP 36.7
[2023-03-23] MEDS: pantoprazole DR 40 mg Tablet PO (08:05)
[2023-03-23] MEDS: metoprolol tartrate 25 mg Tablet PO (08:05)
[2023-03-23] MEDS: pregabalin 50 mg Capsule PO (08:08)
--- NOTE | 2023-03-23 09:35 | PC.NURSE ---
CODE BLUE NOTE Patient was found to not be breathing and without a pulse at approximately 0935 by Slick Bunch RT. Slick Bunch initiated compressions and code blue was called overhead. Code Blue response continued as follows: 0939: pulse check, no pulse found, PEA on monitor. CPR resumed. 0941: pulse check, no pulse found, PEA on monitor. CPR resumed. IO initiated to LLE 0942: 1 of Epi administered and flushed 0943: 1 of Sodium Bicarb administered and flushed to IO in LLE 0944: Patient intubated by Dr. Marie 0945: 1 of Epi administered and flushed to IO in LLE. 20 gauge IV initiated to left forearm. 0946: pulse check, no pulse found, PEA on monitor. CPR resumed. 0947: 1 of Calcium Chloride administered and flushed to IO in LLE 0948: pulse check, no pulse found, PEA on monitor. CPR resumed. 1 of Epi administered and flushed to IO in LLE. 0949: 1 of Bicarb administered and flushed to IO in LLE 0950: pulse check, no pulse found, PEA on monitor. CPR resumed. 0951: 1 of Epi administered and flushed to IO in LLE 0952: pulse check, no pulse found, PEA on monitor. CPR resumed. 0954: 1 of Epi administered and flushed to IO in LLE. Pulse check, no pulse found, PEA on monitor. CPR resumed. 0957: 1 of Epi adminsitered and flushed to IO in LLE. Pulse check, no pulse found, PEA on monitor. CPR resumed. 0959: pulse check, no pulse found, PEA on monitor. CPR resumed. 1000: 1 of Epi administered and flushed to IO in LLE. 1001: pulse check, no pulse found, PEA on monitor. CPR resumed. Patient's spouse at bedside speaking with Dr. Veras and Dr. Hart, decision made to cease resuscitation efforts after the next round of CPR. 1003: 1 of Epi administered and flushed to IO in LLE. Pulse check, no pulse found, PEA on monitoring. Patient's spouse and team are in agreement to stop CPR at this time. Time of witnessed by Dr. Hart and Dr. Veras.
--- NOTE | 2023-03-23 10:36 | PC.NURSE ---
MTS notified of patient passing @1035 by Tear Down Worker. Patient not a candidate d/t medical diagnosis of covid +. [facility] notified of release.
--- NOTE | 2023-03-23 11:33 | P.DES_ITS ---
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, history of A-fib with ablation status post pacemaker, she tested positive for COVID-19, orthopedic were consulted for her right wrist fracture, splint was recommended by orthopedics, she was seen by the nursing staff and orthopedics in the morning on 03/23/2023 around 7 AM, while I was rounding CODE BLUE was called when patient aspirated became hypoxic and lost her pulse, code ran for about 20+ minutes, was at the bedside, her rhythm was PEA, multiple episodes of epinephrine bicarb calcium gluconate given, IO access was obtained, code was terminated after 20 minutes Etiology of : hypoxia related to COVID-19 and aspiration Additional Data Confirmation of as documented by pronouncing clinician: no pulse, no respirations, no heart sounds and pupils fixed and dilated Family: at bedside Additional persons at bedside: nursing staff, long term care social worker and non clinical advisor Attending/PCP notified?: I am attending Was code activated?: Yes Autopsy requested?: No Advance directives?: Yes Hospice patient?: No Discharge Plan Discharge Patient Disposition: Condition: Stable Prescriptions: No Action allopurinol 100 mg tablet 100 mg PO BID ferrous sulfate 325 mg (65 mg iron) tablet 325 mg PO BID magnesium 250 mg tablet 250 mg PO QPM metoprolol tartrate 25 mg tablet 25 mg PO BID metolazone 2.5 mg tablet 2.5 mg PO .COMPLEX Rx Instructions: 2.5 mg orally as directed; albuterol sulfate 90 mcg/actuation HFA aerosol inhaler 2 inh inhalation Q8H PRN (Reason: shortness of breath or wheezing) Qty: 6.7 0RF Rx Instructions: rinse mouth after use prochlorperazine maleate [Compazine] 10 mg tablet 10 mg PO Q8H PRN (Reason: nausea and vomiting) Qty: 30 3RF lorazepam 1 mg tablet 0.5 - 1 mg PO Q8H PRN (Reason: severe nausea/vomiting) Qty: 30 2RF acetaminophen 325 mg capsule 650 mg PO BID pantoprazole 40 mg tablet,delayed release (DR/EC) 40 mg PO DAILY Qty: 90 3RF clopidogrel 75 mg tablet 75 mg PO QPM Qty: 90 3RF Hold Instructions: Resume on 07/06/22. pregabalin [Lyrica] 50 mg capsule 50 mg PO BID Qty: 60 5RF Piqray 300 mg/day (150 mg x 2) tablet 300 mg PO DAILY Qty: 28 12RF potassium chloride 10 mEq tablet,ER particles/crystals 10 meq PO DAILY Farxiga 10 mg tablet 10 mg PO QAM escitalopram oxalate 5 mg tablet 5 mg PO DAILY torsemide 20 mg tablet See Rx Instructions .ROUTE .COMPLEX Rx Instructions: 40 mg orally in the morning / 20 mg orally in the evening hydrocodone-acetaminophen 5-325 mg tablet 1 tab PO Q6H PRN (Reason: pain) Qty: 10 0RF promethazine-codeine 6.25-10 mg/5 mL syrup 5 ml PO Q4H PRN (Reason: cough) Qty: 473 0RF Referrals: Janie Agustin MD [Primary Care Provider] - Patient Instructions: Hyponatremia (ED), Benzodiazepine Use Disorder (ED), Dementia (ED), Non-diabetic Hypoglycemia (ED), Hypoglycemia in a Person with Diabetes (ED), Concussion (ED), Alcohol Intoxication (ED), Subarachnoid Hemorrhage (GEN), Altered Mental Status (ED), Opioid Safety Activity Restrictions/Additional Instructions: Continue wear the right removable wrist splint at all times. No use of the right hand and arm. We will see her back in the office in 1 week's time for new x-ray and reevaluation of the right wrist. DS Attestations Time Spent in /Discharge Care*: critical care time Critical Care Time (min): 40 Quality - AMI: AMI present?: No Quality - Stroke: CVA present?: No Quality - VTE: VTE present?: No Coding Level of Care Code Acute Code for Chg Fwd Diagnoses Closed fracture of right distal radius S52.501A
--- NOTE | 2023-03-23 12:51 | PC.NURSE ---
Respiratory called for a nurse to room. Respiratory doing CPR on Patient. Code called by Nurse location manager at [id number]. Dr. Hart called code end at [id number].
[2023-03-23 14:48] VITALS: PULSE 0
--- NOTE | 2023-03-23 17:59 | PM.CCN ---
Critical Care Event Note Responded to CODE BLUE on the patient's room. On arrival CPR in progress I was asked to establish airway. Patient intubated with an 8 oh ET tube at pulse check without complication good color change on the capnometry. Hospitalist continue to manage code after I left see their notes for the remainder of care. Critical Care Time Code activated: Yes Critical Care Time (min): 10 Procedures Intubation Sedative: none Laryngoscope: fiber optic video scope Assist device used: fiber optic device ET tube size: 8 ET tube uncuffed: No Tube secured depth (cm): 22 Tube secured location: teeth Tube placement confirmation: visualized tube passing through cords, equal breath sounds bilaterally, no breath sounds over epigastrium, confirmation by capnometry and color change noted Intubation complications: none Coding Level of Care Code Acute Code for Chg Fwd
== END 2023-03-23 12:00 | disposition expired | DRG 178 ==
LOC: ER 21:35 → MEDSURG 22:06
PROVIDERS: Nurse Practitioner Family; Admitting Provider Student in an Organized Health Care Education/Training Program; Emergency Provider Emergency Medicine; PCP Internal Medicine; Visit Provider Internal Medicine
DX: U07.1 COVID-19 (principal); C79.51 Secondary malignant neoplasm of bone; S52.501A Unspecified fracture of the lower end of right radius, initial encounter for closed fracture; I13.0 Hypertensive heart and chronic kidney disease with heart failure and stage 1 through stage 4 chronic kidney disease, or unspecified chronic kidney disease; I42.8 Other cardiomyopathies; I50.22 Chronic systolic (congestive) heart failure; N17.9 Acute kidney failure, unspecified; R09.02 Hypoxemia; Z95.810 Presence of automatic (implantable) cardiac defibrillator; F03.90 Unspecified dementia, unspecified severity, without behavioral disturbance, psychotic disturbance, mood disturbance, and anxiety; N18.9 Chronic kidney disease, unspecified; Z87.891 Personal history of nicotine dependence; J44.9 Chronic obstructive pulmonary disease, unspecified; Z86.73 Personal history of transient ischemic attack (TIA), and cerebral infarction without residual deficits; G47.33 Obstructive sleep apnea (adult) (pediatric); Z99.89 Dependence on other enabling machines and devices; I73.9 Peripheral vascular disease, unspecified; C50.919 Malignant neoplasm of unspecified site of unspecified female breast; W01.0XXA Fall on same level from slipping, tripping and stumbling without subsequent striking against object, initial encounter; Y92.009 Unspecified place in unspecified non-institutional (private) residence as the place of occurrence of the external cause
CPT/HCPCS: 31500; 36415; 70450; 71045; 73090; 73110; 80053; 81003; 82140; 83735; 84443; 84484; 85025; 85610; 86140; 87635; 93005; 96365; 99284; 99285; G0378; J1100; J1439; J3480; J7030; J7040; J7050